=== PATIENT | female | born 1960 | race Caucasian/White ===

== ENCOUNTER 2017-04-09 11:57 | Day surgery (SDC) | payer OTHER, SELFPAY ==
[2017-04-09 12:18] VITALS: BP 123/80; PULSE 80; RESP 20; TEMP 36.8; O2SAT 95; BMI 37.5
[2017-04-09] MEDS: Bupivacaine 0.25% 30 ML Vial (12:34)
[2017-04-09] MEDS: MethylPREDNISolone Acetate 80 MG/ML Vial (12:34)
--- NOTE | 2017-04-09 12:45 | RAD_ITS ---
STUDY: X-RAY - CERVICAL SPINE REASON FOR EXAM: Female, 57 years old. Chronic neck pain. TECHNIQUE: 9 coned-down view(s) of the cervical spine were obtained intraoperatively. COMPARISON: None FINDINGS: Fluoroscopic services was provided for right C4-C7 radiofrequency ablation. RAD/Cerv Spine 2 or 3 Views IMPRESSION: Imaging provided for intraoperative right-sided C4-C7 radiofrequency ablation. Electronically Signed: Beny Schwab MD at 9:30 EST Tel [phone], Service support ,
[2017-04-09 13:23] VITALS: BP 123/80; BP 124/99; PULSE 72; RESP 16; TEMP 36; O2SAT 97
[2017-04-09 13:30] VITALS: BP 112/84; BP 123/80; PULSE 75; RESP 16; O2SAT 97
[2017-04-09 13:35] VITALS: BP 115/72; BP 123/80; PULSE 78; RESP 16; O2SAT 93
[2017-04-09 13:40] VITALS: BP 123/80; BP 89/75; PULSE 72; RESP 16; TEMP 36.1; O2SAT 93
[2017-04-09 13:56] VITALS: BP 123/80
--- NOTE | 2017-04-09 16:14 | OP.PCM_ITS ---
Problem List (1) Degeneration of cervical disc without myelopathy Status: Chronic (2) Cervical spondylosis Status: Chronic Report of Operation Date of Procedure: 04/09/17 Pre-Operative Diagnosis: Cervical spondylosis, cervical degenerative disc disease, cervical facet arthropathy Post-Operative Diagnosis: Cervical spondylosis, cervical degenerative disc disease, cervical facet arthropathy Surgery/Procedure Performed:: Right sided cervical radiofrequency ablation of the medial branch at C4, C5, C6, C7. Description of Surgical Findings:: PROCEDURE: Right-sided cervical radiofrequency ablation of the medial branch at C4, C5, C6 , C7 PREOPERATIVE DIAGNOSES: Cervical spondylosis, cervical degenerative disc disease, and cervical facet arthropathy POSTOPERATIVE DIAGNOSES: Cervical spondylosis, cervical degenerative disc disease, and cervical facet arthropathy ANESTHESIA: MAC COMPLICATIONS: None BLOOD LOSS: Minimal PROCEDURE IN DETAIL: History and physical today was reviewed. Risks and benefits of the procedure were explained. The patient understood, agreed to our procedure, and informed consent was obtained. IV inserted per routine protocol. The patient was taken to the operating room, placed in a prone position with a pillow positioned underneath the chest. The neck area was prepped and draped in a sterile fashion using iodine x3. Under fluoroscopy guidance, on AP view, C4 through C7 vertebral bodies were visualized. Skin and subcutaneous tissues were anesthetized with approximately 10 mL of 1% lidocaine using a 25- gauge regular needle. Under direct visualization with fluoroscopy at approximately 15-degree angle, starting on the right C4, ending on the right C7, passing through the C5-C6 using a 20-gauge 10 cm with a 10 mm curved active tip radiofrequency ablation needle, the needle was passed through the skin. The tip of the needle was maneuvered and directed towards the apophyseal junction of each corresponding vertebra. Once the tip of the needle was at the vicinity of the medial branch and in contact with the bone, the needle was redirected more lateral towards the medial branch. Once in contact with the medial branch, the stylet of each needle was then removed. After negative aspiration of blood with CSF and confirmation of AP as well as oblique view, the radiofrequency ablation probe was then inserted at each level. Impedance was then recorded at C4 to be 316, at C5 241, at C6 287, at C7 329 ohms. Motor-evoked potential was then initiated to 1.5 volt without any motor response at each corresponding level. The radiofrequency ablation probe was then removed intact and a total of 4 mL preservative-free 1% lidocaine was injected in divided doses between those 4 levels after negative aspiration of blood with CSF. The radiofrequency ablation probe was then reinserted after confirmation of AP, oblique as well as lateral view. Radiofrequency ablation was then initiated to 80 degrees Celsius for 60 seconds at each level. Once concluded, the probe was then removed intact and a total of 3 mL of preservative-free 0.25% Marcaine with 40 mg Depo-Medrol was injected in divided doses between those 4 levels. The needles were then removed intact. The patient experienced no signs or symptoms of intrathecal, intravascular injection. The patient experienced no paraesthesia. The procedure was completed without any apparent difficulty, any complication. The patient appeared to tolerate well. Sensory as well as motor exam was unchanged from prior to procedure. ASSESSMENT AND PLAN: This is a 57-year-old female with cervical spondylosis, cervical degenerative disc disease, and cervical facet arthropathy, status post right-sided radiofrequency ablation of the medial branch C4 through C7. The patient will continue her current medications. The patient will follow up in approximately 2 weeks fo reevaluation.
== END 2017-04-09 14:10 | disposition home or self-care (01) ==
LOC: SDC 11:58 → AC 11:59
PROVIDERS: Family Provider Family Medicine Geriatric Medicine; PCP Family Medicine Geriatric Medicine; Visit Provider Anesthesiology Pain Medicine
PROC: (CPT 64633; principal; 2017-04-09 13:10)
DX: M47.812 Spondylosis without myelopathy or radiculopathy, cervical region (principal); M50.30 Other cervical disc degeneration, unspecified cervical region; F32.9 Major depressive disorder, single episode, unspecified; E78.00 Pure hypercholesterolemia, unspecified; K21.9 Gastro-esophageal reflux disease without esophagitis; Z79.899 Other long term (current) drug therapy; J44.9 Chronic obstructive pulmonary disease, unspecified; F17.200 Nicotine dependence, unspecified, uncomplicated; G25.81 Restless legs syndrome
CPT/HCPCS: 64633; 64634 ×3; 72040; 76000; J7120

== ENCOUNTER → 2017-04-12 07:12 | Outpatient (CLI) | payer OTHER, SELFPAY ==
[2017-04-12 10:01] LABS: Absolute Lymphocyte Count 2.31 X10^3/ul (0.83-4.51); Absolute Neutrophil Count 6.1 X10^3/uL (2.0-7.7); Basophil# 0.02 X10^3/uL; Basophil% 0.2 % (0-1); Eosinophil# 0.04 X10^3/uL; Eosinophils% 0.4 % (0-5); Hematocrit 44.4 % (37-47); Lymphocyte # 2.31 X10^3/ul (4.0); Lymphocyte % 25.1 % (19-41); Mean Corp Hgb Conc 33.8 g/gl (32-36); Mean Corpuscular Hgb 30.4 pg (27.0-32.0); Mean Corpuscular Volume 90.1 fL (81-99); Mean Platelet Vol. 8.8 fl (6.2-12.0); Monocyte# 0.71 X10^3/uL; Monocyte% 7.7 % (0-10); Neutrophil # 6.08 X10^3/uL (2.7-7.7); Neutrophil % 66.1 % (47-70); Platelet Count 351 K/mm3 (150-450); RBC Distribution Width CV 13.5 % (11.6-14.6); RBC Distribution Width SD 43.9 fl (35.1-43.9); Red Blood Count 4.93 M/mm3 (4.2-5.4); White Blood Count 9.2 K/mm3 (4.4-11.0)
[2017-04-12 10:09] LABS: ALB/GLOB Ratio 1.1 RATIO (0.9-2.4); AST(SGOT) 19 U/L (15-37); Alanine Aminotransfer ALT/SGPT 31 U/L (13-56); Albumin, Serum 3.9 g/dL (3.2-5.0); Alkaline Phosphatase 77 U/L (45-117); Anion Gap 8 (5-15); BUN 17 mg/dL (7-18); BUN/Creat Ratio 19.9 RATIO (10-20); CRP < 2.90 mg/L (0.0-3.0); Calcium,Total 9.3 mg/dL (8.5-10.1); Chloride 101 mmol/L (98-107); Creatinine, Serum 0.85 mg/dL (0.55-1.02); EST Glomerular Filtration Rate 73 mL/min (>60); Est Glom Filt Rate - Afr Amer 88 mL/min (>60); Globulin 3.6 g/dL (2.2-4.2); Glucose 84 mg/dL (74-106); Potassium 3.8 mmol/L (3.5-5.1); Protein, Total 7.5 g/dL (6.4-8.2); Sodium Level 138 mmol/L (136-145)
[2017-04-12 10:21] LABS: Erythrocyte Sedimentation Rate 15 mm/hr (0-30)
== END ==
PROVIDERS: Family Provider Family Medicine Geriatric Medicine; PCP Family Medicine Geriatric Medicine
DX: M05.79 Rheumatoid arthritis with rheumatoid factor of multiple sites without organ or systems involvement (principal)
CPT/HCPCS: 36415; 80053; 85025; 85652; 86140

== ENCOUNTER 2017-06-06 09:41 | Day surgery (SDC) | payer OTHER, SELFPAY ==
[2017-06-06] VITALS (9 sets, daily range): BP systolic 112–138; BP diastolic 73–90; PULSE 68–80; RESP 14–16; TEMP 36.6–36.8; O2SAT 95–98; BMI 38.5
[2017-06-06] MEDS: Clindamycin 900 MG/50 ML BAG 75 MG IV (11:07)
--- NOTE | 2017-06-06 11:16 | PCM.DC.ORTHO ---
Discharge Diet: No Restrictions - keep dressing clean and dry, if get incision wet- change dressing, follow up in 2 wks, call with concerns Discharge Activity: May Not Drive May shower in (days): 1 Ice area for (Minutes): 20 - Every hour while awake. Weight Bearing Status: Weight bearing as tolerated Keep extremity elevated above heart level: Operative Extremity Call your doctor if your incision/area has: Continuous Slow Oozing, Sudden Increased Bleeding, Increased Pain/ Swelling, Increased Redness, Foul Smelling Discharge Call your doctor if you observe: Fever of 101 or Higher, Coldness, Increased Pain, Numbness or Tingling, Change in Color, Calf discomfort Allergies/Adverse Reactions: Allergies adalimumab [From Humira] Allergy (Verified 02/21/17 08:52) Rash Penicillins Allergy (Verified 02/21/17 08:52) Rash tramadol Adverse Reaction (Verified 02/21/17 08:52) FEELING OF CONFUSION Medications to take at Discharge Albuterol Inhaler [Ventolin Hfa (SP)] 1 - 2 puff INHALATION Q6H PRN PRN 05/18/16 Hydroxychloroquine [Plaquenil] 200 mg PO BIDCM 05/18/16 Omeprazole [Prilosec] 40 mg PO DAILY 05/18/16 Potassium Citrate [Potassium Citrate ER] 20 meq PO BID 05/18/16 Sertraline HCl [Zoloft] 50 mg PO DAILY 05/18/16 albuterol sulfate 2.5 mg/3 mL (0.083 %) solution for nebulization 2.5 mg INHALATION Q6H PRN ml 02/13/17 pravastatin 20 mg tablet 20 mg PO QHS 02/13/17 tiotropium bromide 2.5 mcg/actuation mist for inhalation 2 puff INHALATION QDAY #1 ea 03/12/17 Folic Acid 1 mg PO DAILY@0800 04/09/17 Methotrexate 25 mg PO QWEEK 04/09/17 Primary Care Physician: Leon Pinto Chi, MD [Primary Care Provider] - Please Follow Up With: Jojo Santana, - [phone]
--- NOTE | 2017-06-06 11:18 | OP.PCM_ITS ---
Report of Operation Date of Procedure: 06/06/17 Pre-Operative Diagnosis: right middle finger trigger finger Post-Operative Diagnosis: same Surgery/Procedure Performed:: right middle finger A1 hiram release Type of Anesthesia:: Justen Mane Anesthesiologist: Luis Enrique Ramirez Drains: tt-8 mins Estimated Blood Loss (mL): none Fluids Replaced: 200cc lr Description of Procedure: Preoperative note Patient is a 57-year-old female with locking of her right long finger. Patient' s failed conservative treatment elected proceed with right A1 hiram release as affecting her activities of daily living. Risks benefits and alternatives surgery discussed with patient. Risks including but not limited to blood loss, blood clot, infection, neurovascular injury, failure procedure, loss of life and loss of limb. Patient is aware like proceed with right long finger A1 hiram release. Operative note Patient seen and examined preoperative holding area. Right middle finger was marked. Patient is brought to the operating room placed supine on the operating table. Signing, anesthesia, antibiotics were administered. Right arm was prepped in usual sterile fashion after Justen block was initiated. We then marked out our incision for our A1 hiram release. We tested the skin to ensure that her Equality block was working which it was. Timeout was performed. We then made our incision over the A1 hiram with a 15 blade. We dissected down tenotomy syllable of the A1 hiram. We then carefully dissected the central portion of the A1 hiram and completed it both proximally and distally with tenotomies ensuring to protect the flexor tendon underneath. We then brought the flexor tendon out of the incision and flex and extend the finger to ensure no further triggering which there was not. We then irrigated the incision closed with copious amounts sterile saline. The incision was closed with interrupted 4-0 nylon stitch and sterile dressings were applied. The tourniquet was deflated for total working time of 8 minutes. Patient tolerated procedure well there are no complication patient was transferred to recovery room in stable condition. Postoperative note Use hand as tolerated Keep incision clean and dry if gets wet may change dressing Follow-up in 2 weeks for stitch removal next Call with increased pain numbness feeling further issues arise This note was generated with [employer] software. It may contain incorrect words, spelling, and punctuation that were not noted in checking the note before signing.
[2017-06-06] MEDS: Mupirocin Ointment 22gm Tube 1 APPLIC (11:25)
== END 2017-06-06 12:35 | disposition home or self-care (01) ==
LOC: SDC 09:42 → AC 09:43
PROVIDERS: Family Provider Family Medicine Geriatric Medicine; PCP Family Medicine Geriatric Medicine; Visit Provider Orthopaedic Surgery
PROC: (CPT 26055; principal; 2017-06-06 11:15)
DX: M65.331 Trigger finger, right middle finger (principal); F32.9 Major depressive disorder, single episode, unspecified; Z79.899 Other long term (current) drug therapy; E78.5 Hyperlipidemia, unspecified; K21.9 Gastro-esophageal reflux disease without esophagitis; J44.9 Chronic obstructive pulmonary disease, unspecified; G47.33 Obstructive sleep apnea (adult) (pediatric); M06.9 Rheumatoid arthritis, unspecified; R06.02 Shortness of breath; M54.12 Radiculopathy, cervical region; F17.200 Nicotine dependence, unspecified, uncomplicated
CPT/HCPCS: 26055; J7120

== ENCOUNTER → 2017-09-13 12:44 | Outpatient (CLI) | payer OTHER, SELFPAY ==
[2017-09-13 14:43] LABS: Erythrocyte Sedimentation Rate 17 mm/hr (0-30)
[2017-09-13 14:44] LABS: Hematocrit 40.6 % (37-47); Hemoglobin 13.5 g/dl (12.0-15.0); Mean Corp Hgb Conc 33.3 g/gl (32-36); Mean Corpuscular Hgb 31.8 pg (27.0-32.0); Mean Corpuscular Volume 95.5 fL (81-99); Mean Platelet Vol. 8.8 fl (6.2-12.0); Platelet Count 307 K/mm3 (150-450); RBC Distribution Width CV 13.9 % (11.6-14.6); RBC Distribution Width SD 47.6 fl (35.1-43.9); Red Blood Count 4.25 M/mm3 (4.2-5.4); White Blood Count 8.6 K/mm3 (4.4-11.0)
[2017-09-13 14:47] LABS: Scan Indicated on CBC? Y/N NO
[2017-09-13 14:48] LABS: ALB/GLOB Ratio 1.1 RATIO (0.9-2.4); AST(SGOT) 17 U/L (15-37); Alanine Aminotransfer ALT/SGPT 32 U/L (13-56); Albumin, Serum 3.8 g/dL (3.2-5.0); Alkaline Phosphatase 80 U/L (45-117); Anion Gap 5 (5-15); BUN 15 mg/dL (7-18); BUN/Creat Ratio 16.7 RATIO (10-20); CRP 8.02 mg/L (0.0-3.0); Calcium,Total 9.1 mg/dL (8.5-10.1); Chloride 105 mmol/L (98-107); EST Glomerular Filtration Rate 69 mL/min (>60); Est Glom Filt Rate - Afr Amer 83 mL/min (>60); Globulin 3.4 g/dL (2.2-4.2); Glucose 82 mg/dL (74-106); Protein, Total 7.2 g/dL (6.4-8.2); Sodium Level 141 mmol/L (136-145)
== END ==
PROVIDERS: Family Provider Family Medicine Geriatric Medicine; PCP Family Medicine Geriatric Medicine
DX: M05.79 Rheumatoid arthritis with rheumatoid factor of multiple sites without organ or systems involvement (principal)
CPT/HCPCS: 36415; 80053; 85027; 85652; 86140

== ENCOUNTER → 2017-10-30 10:00 | Outpatient (CLI) | payer OTHER, SELFPAY ==
--- NOTE | 2017-10-30 10:04 | RAD_ITS ---
STUDY: X-RAY - RIGHT FOOT CLINICAL: Female, 57 years old. Pain top and medial foot for years with worsening TECHNIQUE: 3 view(s) of the foot. COMPARISON: The right foot x-ray dated December 12, 2010 was not provided for interpretation. FINDINGS: There is a plantar and Achilles spur. Normal visualized subtalar, talonavicular, calcaneocuboid, tarsal and tarsometatarsal articulations. There is a mildly curved appearance of the fifth metatarsal which may represent old injury. There is no visualized evidence of an acute fracture. Normal metatarsophalangeal joint of the great toe. Normal tibial and fibular sesamoid bones. Normal interphalangeal joint of the great toe. Normal phalanges of the great toe. Normal second through fifth metatarsophalangeal joints. Normal interphalangeal joints and phalanges of the lesser toes. The soft tissue structures are unremarkable. RAD/Foot min 3 Views IMPRESSION: Possible old injury of the fifth metatarsal. No visualized acute fracture. Plantar and Achilles spur. Electronically Signed: Shelly Dumont MD at 18:22 EDT Tel , Service support ,
== END ==
PROVIDERS: Family Provider Family Medicine Geriatric Medicine; PCP Family Medicine Geriatric Medicine; Visit Provider Podiatrist
DX: M79.671 Pain in right foot (principal); S93.621A Sprain of tarsometatarsal ligament of right foot, initial encounter; M19.90 Unspecified osteoarthritis, unspecified site
CPT/HCPCS: 73630

== ENCOUNTER → 2017-11-13 16:38 | Outpatient (CLI) | payer OTHER, SELFPAY ==
[2017-11-18 03:06] LABS: HEPATITIS B SURFACE AG Negative (Negative); QNTFERON TB Ag Minus Nil Value < 0 IU/mL (.); QNTFERON TB Ag Value 0.13 IU/mL (.); QNTFERON TB Mitogen Value > 10.00 IU/mL (.); QNTFERON TB Nil Value 0.24 IU/mL (.)
[2017-11-18 08:05] LABS: Hepatitis B Core AB IgM Negative (Negative); QNTIFERON TB Gold Negative (Negative)
== END ==
PROVIDERS: Family Provider Family Medicine Geriatric Medicine; PCP Family Medicine Geriatric Medicine
DX: M05.79 Rheumatoid arthritis with rheumatoid factor of multiple sites without organ or systems involvement (principal)
CPT/HCPCS: 36415; 86480; 86705; 87340

== ENCOUNTER → 2018-01-30 07:53 | Outpatient (CLI) | payer OTHER, SELFPAY ==
[2018-01-30 07:27] VITALS: BMI 38.2
--- NOTE | 2018-01-30 08:00 | RAD_ITS ---
STUDY: X-RAY CHEST REASON FOR EXAM: Female, 57 years old. Cough. TECHNIQUE: PA and lateral views of the chest. COMPARISON: Comparison is made with prior study dated December 27, 2015. FINDINGS: Hyperinflation. There is no demonstrated pleural abnormality. Normal size heart. Calcified bilateral hilar lymph nodes. No acute infiltrate is seen. Normal visualized pulmonary arteries. There is atherosclerotic tortuosity of the aortic arch and descending thoracic aorta. There are diffuse degenerative changes of the visualized thoracic spine. Normal visualized ribs, clavicles, and shoulders. There is no demonstrated abnormality of the visualized soft tissue structures of the upper abdomen. RAD/Chest PA and Lateral IMPRESSION: Hyperinflation. No acute abnormality is seen. Electronically Signed: Beny Schwab MD at 8:47 EST Tel [phone], Service support ,
[2018-01-30 09:42] LABS: Erythrocyte Sedimentation Rate 12 mm/hr (0-30)
[2018-01-30 09:44] LABS: Absolute Lymphocyte Count 1.69 X10^3/ul (0.83-4.51); Absolute Neutrophil Count 4.4 X10^3/uL (2.0-7.7); Basophil# 0.02 X10^3/uL; Basophil% 0.3 % (0-1); Eosinophil# 0.02 X10^3/uL; Eosinophils% 0.3 % (0-5); Hematocrit 42.7 % (37-47); Hemoglobin 14.5 g/dl (12.0-15.0); Lymphocyte # 1.69 X10^3/ul (4.0); Lymphocyte % 24.9 % (19-41); Mean Corpuscular Volume 94.3 fL (81-99); Mean Platelet Vol. 8.9 fl (6.2-12.0); Monocyte% 8.8 % (0-10); Neutrophil # 4.42 X10^3/uL (2.7-7.7); Platelet Count 336 K/mm3 (150-450); RBC Distribution Width CV 13.6 % (11.6-14.6); RBC Distribution Width SD 44.9 fl (35.1-43.9); Red Blood Count 4.53 M/mm3 (4.2-5.4); White Blood Count 6.8 K/mm3 (4.4-11.0)
[2018-01-30 09:46] LABS: POSITIVE COUNT NO; POSITIVE DIFFERENTIAL NO; POSITIVE MORPHOLOGY NO
[2018-01-30 10:09] LABS: AST(SGOT) 18 U/L (15-37); Alanine Aminotransfer ALT/SGPT 24 U/L (13-56); Albumin, Serum 3.8 g/dL (3.2-5.0); Alkaline Phosphatase 81 U/L (45-117); Anion Gap 9 (5-15); BUN 11 mg/dL (7-18); Calcium,Total 9.4 mg/dL (8.5-10.1); Chloride 106 mmol/L (98-107); Creatinine, Serum 0.92 mg/dL (0.55-1.02); EST Glomerular Filtration Rate 67 mL/min (>60); Est Glom Filt Rate - Afr Amer 81 mL/min (>60); Globulin 3.7 g/dL (2.2-4.2); Glucose 98 mg/dL (74-106); Potassium 4.2 mmol/L (3.5-5.1); Protein, Total 7.5 g/dL (6.4-8.2); Sodium Level 142 mmol/L (136-145)
--- OUTSIDE RECORDS SUMMARY | 2018-03-18 02:56 | XMS RPT_ITS ---
:1960 Author Organization OHIP Support Name Relationship Address Phone YEHUDA MALDONADO Unavailable Unavailable + WC Unavailable [address] + [place] [address] YEHUDA MALDONADO Unavailable Unavailable + WC Unavailable [address] + [place] [address] JOELYEHUDA Unavailable Unavailable + [facility] Unavailable [address] + [place] [address] JOELALEJANDRAIE Unavailable . + [place] [address] WC Unavailable [address] + [place] [address] JOELYEHUDA Unavailable Unavailable + WC Unavailable [address] + [place] [address] + [place] [address] WC Unavailable [address] + [place] [address] + [place] [address] WC Unavailable [address] + [place] [address] [address] + [place] [address] WC Unavailable [address] + [place] [address] + [place] [address] [facility] Unavailable [address] + [place] [address] + [place] [address] [facility] Unavailable [address] + [place] [address] + [place] [address] [facility] Unavailable [address] + [place] [address] [address] + [place] [address] [facility] Unavailable [address] + [place] [address] [address] + [place] [address] [facility] Unavailable [address] + [place] [address] [address] + [place] [address] [facility] Unavailable [address] + [place] [address] [address] + [place] [address] [facility] Unavailable [address] + [place] [address] + [place] [address] [facility] Unavailable [address] + [place] [address] [address] + [place] [address] [facility] Unavailable [address] + [place] [address] + [place] [address] [facility] Unavailable [address] + [place] [address] [address] + [place] [address] [facility] Unavailable [address] + [place] [address] Care Team Providers Name Role Phone Juan Jose Lagunas Attending Unavailable Blair, Leon Chi Referring Unavailable Juan Jose Lagunas Attending Unavailable Juan Jose Lagunas Referring Unavailable Blair, Leon Chi Primary Care Unavailable STARLA SHARMA Consulting Unavailable Foster, Delisa Consulting Unavailable Foster, Delisa Attending Unavailable Blair, Leon Chi Referring Unavailable Foster, Delisa Attending Unavailable Foster, Delisa Referring Unavailable Blair, Leon Chi Primary Care Unavailable Foster, Delisa Attending Unavailable Foster, Delisa Referring Unavailable Blair, Leon Chi Primary Care Unavailable Blair, Leon Chi Attending Unavailable Blair, Leon Chi Referring Unavailable Blair, Leon Chi Primary Care Unavailable Rj Bravo Attending Unavailable Lawrence Rj Referring Unavailable Blair, Leon Chi Primary Care Unavailable STARLA SHARMA Attending Unavailable Blair, Leon Chi Primary Care Unavailable ChicorelliJojo Attending Unavailable Blair, Leon Chi Referring Unavailable Blair, Leon Chi Primary Care Unavailable Chicorelli, Jojo Attending Unavailable Chicorelli, Jojo Referring Unavailable Blair, Leon Chi Primary Care Unavailable Chicorelli, Jojo Attending Unavailable Chicorelli, Jojo Referring Unavailable Blair, Leon Chi Primary Care Unavailable Chicorelli Jojo Consulting Unavailable ChicorelliRenitae Attending Unavailable Blair, Leon Chi Referring Unavailable Blair, Leon Chi Primary Care Unavailable Chicorelli, Jojo Attending Unavailable Foster, Delisa Attending Unavailable Blair, Leon Chi Referring Unavailable STARLA SHARMA Referring Unavailable Blair, Leon Chi Primary Care Unavailable STARLA HSARMA Attending Unavailable Fascione, Mary Attending Unavailable Fascione, Mary Referring Unavailable Blair, Leon Chi Primary Care Unavailable ASSESSMENT, HEALTH RISK Attending Unavailable ASSESSMENT, HEALTH RISK Referring Unavailable Blair, Leon Chi Primary Care Unavailable TSARLA SHARMA Attending Unavailable STARLA SHARMA Referring Unavailable Blair, Leon Chi Primary Care Unavailable Juan Jose Lagunas Attending Unavailable Blair, Leon Chi Referring Unavailable PROBLEMS PROBLEMS DATE TYPE CONDITION / CODE ATTENDING STATUS SOURCE 03/11/2018 Unknown J44.9 - Chronic Foster, Active [place] obstructive [facility] pulmonary Hospital disease, Repository unspecified / J44.9(ICD-10) 01/30/2018 Unknown J40 - Bronchitis, Foster, Active [place] not specified as [facility] acute or chronic Hospital / J40(ICD-10) Repository 02/28/2018 Unknown R05 - Cough / Juan Jose Lagunas Active [place] R05(ICD-10) [facility] Hospital Repository 11/13/2017 Unknown M05.79 - STARLA SHARMA Active [place] Rheumatoid [facility] arthritis with Hospital rheumatoid factor Repository of multiple sites without organ or systems involvement / M05.79(ICD-10) 06/29/2017 Unknown M65.331 - Trigger Max, Active [place] finger, right [facility] middle finger / Hospital M65.331(ICD-10) Repository PROCEDURES PROCEDURES No Procedure Records FoundRESULTS RESULTS 6 MINUTE WALK TEST Observed: 03/12/2018 Status: F Source: [place] 5:[address] [facility] REPOSITORY [facility] Pulmonary Services/Neurology [address] [place] [address] MR#: [id number] Acct: [id number] Name: LAUREN MALDONADO Rep #: [id number] : 1960 58 From: Semaj Joseph MD Referring Dr: Delisa Foster ACCOUNTANT SYSTEMS Date: Ordering Dr: Sex: F C Location: PSN PSN 6 Minute Walk Test - 6 Minute Walk Test 6 Minute Walk Test: 6 Minute Walk Test PSN:6-Minute Walk Test Start: 03/11/18 09:18 Freq: Status: Active Protocol: RESP.6MINW Document 03/11/18 09:18 [facility] (Rec: 03/11/18 09:30 [facility] [id number]) 6 Minute Walk Test Date Performed 03/11/18 Time Performed 09:00 Height 5 ft 5 in Weight: 107.501 kg Weight in Pounds 237.[address]: Delisa Foster Assistive device used: None Pre-test Oxygen Delivery Method Room Air Pulse Ox (%) 98 Pulse Rate (60-100 beats/min) 86 Dyspnea Andreea Scale (0-10) 0 1st minute Oxygen Delivery Method Room Air Pulse Ox (%) 96 Pulse Rate (60-100 beats/min) 90 Dyspnea Andreea Scale (0-10) 0 2nd minute Oxygen Delivery Method Room Air Pulse Ox (%) 95 Pulse Rate (60-100 beats/min) 101 H Dyspnea Andreea Scale (0-10) 1 3rd minute Oxygen Delivery Method Room Air Pulse Ox (%) 96 Pulse Rate (60-100 beats/min) 102 H Dyspnea Andreea Scale (0-10) 1 4th minute Oxygen Delivery Method Room Air Pulse Ox (%) 94 Pulse Rate (60-100 beats/min) 104 H Dyspnea Andreea Scale (0-10) 2 5th minute Oxygen Delivery Method Room Air Pulse Ox (%) 93 Pulse Rate (60-100 beats/min) 106 H Dyspnea Andreea Scale (0-10) 2 6th minute Oxygen Delivery Method Room Air Pulse Ox (%) 92 Pulse Rate (60-100 beats/min) 113 H Dyspnea Andreea Scale (0-10) 2 Post-test Oxygen Delivery Method Room Air Pulse Ox (%) 97 Pulse Rate (60-100 beats/min) 85 Dyspnea Andreea Scale (0-10) 0 Full Laps Walked 22 Partial Lap, Number of Tiles Walked 17 Total Distance Walked (ft) 1315 - Interpretation Interpretation: The patient was able to ambulate 1315 feet over the course of 6 minutes on room air. The patient did have significant desaturation from a baseline of 98%, to as low as 92%. Peak heart rate noted at 113 bpm. These findings are consistent with a respiratory limitation exercise tolerance. - Recommendations Recommendations: No supplemental oxygen is indicated at this time. However, patient will need to be followed closely given significant level of desaturation. 03/12/18 0557 <Electronically signed by Semaj Joseph MD> Date Semaj Joseph MD CC: Date Dictated: 03/11/18 1126 Date Transcribed: 03/11/18 1126 Epitaxial Reactor Operator: Semaj Joseph MD Signed Observed: 03/08/2018 Status: F Source: [place] RESPIRATORY PANEL 12:[address] [facility] MOLECULAR REPOSITORY RP PANEL ADENOVIRUS Not Detected HUMAN METAPHNEUMO Not Detected INFLUENZA A Not Detected INFLUENZA A (SUBTYPE H1) Not Detected INFLUENZA A (SUBTYPE H3) Not Detected INFLUENZA B Not Detected PARAINFLUENZA 1 Not Detected PARAINFLUENZA 2 Not Detected PARAINFLUENZA 3 Not Detected PARAINFLUENZA 4 Not Detected RHINOVIRUS Not Detected RSV A Not Detected RSV B Not Detected NAAT METHOD Testing was performed using nucleic acid amplification Performed By: #### M100.638 #### [facility] [address] [place], [address] PULMONARY FUNCTION Observed: 03/05/2018 Status: F Source: [place] TEST [facility]27 [facility] Pulmonary Services/Neurology [address] [place] [address] MR#: [id number] Acct: [id number] Name: LAUREN MALDONADO Rep #: [id number] : 1960 58 From: Isaias Leon DO Referring Dr: Delisa Foster NP Status: REG CLI Ordering Dr: Date: Location: [facility] Sex: F C INTRODUCTION: The patient is a 58-year-old female that presents for pulmonary function studies secondary to a diagnosis of COPD. Respiratory therapy reports good patient effort. Bronchodilators were used during testing. INTERPRETATION: Forced expiration spirometry demonstrates the presence of a moderately severe large airways obstructive ventilatory defect. There was a significant response to aerosolized bronchodilators noted. Spirograms are of good quality and do not plateau indicating slow emptying of the lungs. Body plethysmography was performed and revealed an elevated TLC and RV, indicative of underlying hyperinflation and air-trapping. Diffusing capacity by single breath CO is relatively preserved at 82% of predicted. When compared to previous pulmonary function studies dated November 2016 there has been an 11% reduction in FEV1 along with increased TLC and RV. IMPRESSION: These pulmonary function studies demonstrate the presence of a partially reversible moderately severe large airways obstructive ventilatory defect with associated hyperinflation and air-trapping. There has been worsening in the patient's pulmonary function study since they were last completed in 2016, as noted above. 03/05/181426 <Electronically signed by Isaias Leon DO> Date Isaias Leon DO CC: Delisa Foster; Leon Pinto MD Date Dictated: 03/05/181421 Date Transcribed: 03/05/181421 Epitaxial Reactor Operator: CHRISTIANA Signed URGENT CARE VISIT Observed: 02/25/2018 Status: F Source: [place] REPORT 10:[address] [facility] REPOSITORY [facility] [address] [place] [address] OFFICE VISIT Date of Service: 01/28/18 MR#: [id number] Acct: [id number] Name: LAUREN MALDONADO Rep #: [id number] : 1960 Provider: Juan Jose CARABALLO Age/Sex: 57/F Location: [facility] Status: Signed with Addenda ADDENDUM by Juan Jose CARABALLO on 02/25/18 at 1007 Addendum entered and electronically signed by ILYA Pedro 02/25/18 10:07: DXs: Bronchitis, Sinusitis HPI Details: LAUREN MALDONADO, is a 58 F who presents to the office today for Assessment AND Plan Plan - ILYA Pedro After reviewing the examination findings with patient in office today, patient offered radiographs which she refused. Levaquin as prescribed today. Though patient also requested a corticosteroid, recommended patient not be prescribed a corticosteroid at this point but should she still be symptomatic in 3-5 days she may call us to reconsider this option. Benzonatate as needed as prescribed today. Stop smoking! Follow-up with PCP in 3-5 days should symptoms not improve, sooner should symptoms worsen or any other concerns develop. Patient states acknowledging understanding all the above. This note was generated with Tappx dictation software. It may contain incorrect words, spelling, and punctuation that were not noted in checking the note before signing. Medications New: 02/25/18 1007 <Electronically signed by Juan Jose CARABALLO> Date Juan Jose Lagunas cc: * Signed Intake Vital Signs01/28/18 Height 5 ft 6 in Intake Visit Reasons: UPPER RESP INFECTION Chief Complaint: Cough Safety Physician Required: No Accompanied by: Self Is patient in pain?: No Allergies adalimumab [From Humira] Allergy (Verified 01/28/18 09:17) Rash Penicillins Allergy (Verified 01/28/18 09:17) Rash tramadol Adverse Reaction (Verified 01/28/18 09:17) FEELING OF CONFUSION Medications Albuterol Inhaler [Ventolin Hfa (SP)] 1 - 2 puff INHALATION Q6H PRN PRN 05/18/16 [History Confirmed 01/28/18] Hydroxychloroquine [Plaquenil] 200 mg PO BIDCM 05/18/16 [History Confirmed 01/28/18] Omeprazole [Prilosec] 40 mg PO DAILY 05/18/16 [History Confirmed 01/28/18] Potassium Citrate [Potassium Citrate ER] 20 meq PO BID 05/18/16 [History Confirmed 01/28/18] Sertraline HCl [Zoloft] 50 mg PO DAILY 05/18/16 [History Confirmed 01/28/18] albuterol sulfate 2.5 mg/3 mL (0.083 %) solution for nebulization 2.5 mg INHALATION Q6H PRN ml 02/13/17 [History Confirmed 01/28/18] pravastatin 20 mg tablet 20 mg PO QHS 02/13/17 [History Confirmed 01/28/18] Folic Acid 1 mg PO DAILY@0800 04/09/17 [History Confirmed 01/28/18] Methotrexate 25 mg PO QWEEK 04/09/17 [History Confirmed 01/28/18] tiotropium bromide 2.5 mcg/actuation mist for inhalation 2 puff INHALATION QDAY #1 ea 06/29/17 [Rx Confirmed 01/28/18] benzonatate 200 mg capsule 200 mg PO TID PRN #20 cap 01/28/18 [Rx Confirmed 01/28/18] levofloxacin 500 mg tablet 500 mg PO DAILY #10 tab 01/28/18 [Rx Confirmed 01/28/18] Nurse's Note: Patient did not have medication list. Medications verbally confirmed by patient. [facility] Medical History Depression (Chronic) Limb weakness (Chronic) Tobacco abuse (Chronic) Hyperlipidemia (Chronic) GERD (gastroesophageal reflux disease) (Chronic) Allergic rhinitis (Chronic) COPD (chronic obstructive pulmonary disease) (Chronic) Cervicalgia (Chronic) Cervical radiculopathy (Chronic) Rotator cuff syndrome (Chronic) Segmental and somatic dysfunction of thoracic region (Chronic) Acute maxillary sinusitis (Chronic) Bursitis of right shoulder (Chronic) Bicipital tendinitis of right shoulder (Chronic) Family history of alcoholism (Chronic) Shortness of breath (Chronic) TAMRA (obstructive sleep apnea) (Chronic) Rheumatoid arthritis (Chronic) Spontaneous rupture of extensor tendons, right forearm (Resolved) Segmental and somatic dysfunction of lumbar region (Chronic) Incontinence (Acute) Surgical History History of surgery on arm (Resolved) History of laparoscopic cholecystectomy (Resolved) History of appendectomy (Resolved) h/o trigger finger release (Acute) Family History Mother COPD (chronic obstructive pulmonary disease) Heart disease Osteoarthritis TAMRA (obstructive sleep apnea) Father Cancer throat Social History Smoking Status: Current every day smoker second hand exposure: Yes alcohol intake: current substance use type: does not use caffeine: Yes what type of physical activity do you participate in: none HPI HPI Chief Complaint: Cough Details: LAUREN MALDONADO, is a 57 F who presents to the office today for initial evaluation approximately 2-1/2-week history of cough. Patient notes over the course of the last week in particular she has had thick exudative greenish yellow sputum which she is coughing up. She notes having a lot of facial pressure and for head congestion with postnasal drip along with chills though no complaints of fever, sweats, rash, chest pain/shortness of breath. Patient admits to being a tobacco smoker. No other members and also with similar complaints. No iult-wja-glwlobk products have been tried to assist with symptoms. No other associated symptoms and no other alleviating or aggravating factors. ROS Const Constitutional: No other (ROS negative x10 other than as noted above) Exam Const General: cooperative, healthy appearing, no acute distress Orientation: alert, awake, oriented x3 HENMT Head: normal to inspection Ears: hearing grossly normal bilaterally, external ears normal, TM's normal bilaterally, EAC's normal Nose: external nose normal, nares normal, septum normal, no nasal discharge Face and sinus: normal facial exam, face symmetric, sinus tenderness frontal Mouth: oral mucosae normal, lip normal, tongue normal Teeth and gingiva: gingiva normal, dentition normal Throat: uvula midline, tonsils normal, posterior oropharynx normal, postnasal drainage (purulent) Eyes General: appearance normal, both eyes and all related structures Neck Neck: normal visual inspection, full ROM, no lymphadenopathy, no meningeal signs, supple Neck mass: No Thyroid: thyroid normal Lymphatic: no lymphadenopathy noted Chest Chest palpation AND inspection: normal inspection of the chest Resp Effort AND Inspection: normal respiratory effort, able to speak in complete sentences, symmetric chest movement, cough Quality of cough: wet (nonproductive during today's exam) Auscultation: Bilateral: Clear to Auscultation Cardio Palpation: normal PMI Rate: regular rate Rhythm: regular rhythm Heart Sounds: S1 normal, S2 normal, no gallops, no murmurs, no rubs Pulses: radial pulses present GI Inspection: normal to inspection Palpation: soft, no hepatosplenomegaly Skin General: no rashes or lesions noted Neuro General: alert, awake, oriented x3, gait normal Cognition: normal cognition Speech: speech normal Gait: normal gait Motor: muscle tone normal throughout Sensory Exam: no sensory deficits noted Extrem General: normal to inspection Psych Appearance: grossly normal Mental Status: mental status grossly normal Mood: congruent mood Affect: normal affect Speech and Movement: speech and movement normal Attitude: cooperative Thought Process: normal Thought Content: normal Judgment: judgment good Assessment AND Plan Plan After reviewing the examination findings with patient in office today, patient offered radiographs which she refused. Levaquin as prescribed today. Though patient also requested a corticosteroid, recommended patient not be prescribed a corticosteroid at this point but should she still be symptomatic in 3-5 days she may call us to reconsider this option. Benzonatate as needed as prescribed today. Stop smoking! Follow-up with PCP in 3-5 days should symptoms not improve, sooner should symptoms worsen or any other concerns develop. Patient states acknowledging understanding all the above. This note was generated with Tappx dictation software. It may contain incorrect words, spelling, and punctuation that were not noted in checking the note before signing. Medications New: Coding Level of Care Code Off vis,est,level 3 01/28/18 0953 <Electronically signed by Juan Jose CARABALLO> Date Juan Jose CARABALLO Cosigner Signature: Date (if applicable) CC: PULMONARY VISIT REPORT Observed: 01/30/2018 Status: F Source: [place] 9:[address] [facility] REPOSITORY [facility] [place] [address] [place] [address] OFFICE VISIT Date of Service: 01/30/18 MR#: [id number] Acct: [id number] Name: LAUREN MALDONADO Rep #: [id number] : 1960 Provider: Delisa Foster Age/Sex: 57/F Location: [facility] Status: Signed Assessment AND Plan Problems 1. 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 classification J44.9 Plan Deteriorated, treating for exacerbation. Advised to complete Levaquin however I suspect that the cause of her exacerbation is likely viral. Respiratory viral panel, influenza a and B rapid swab is pending. Chest x-ray reviewed and shows no acute cardiopulmonary process. Kenalog injection provided in the office today followed by a prednisone taper. Continue current maintenance medications. Keep previously scheduled routine follow-up. Contact the office if symptoms are not improving after 3 days on medications. Orders Orders: Medications New: albuterol sulfate HFA 90 mcg/actuation 1 - 2 puffs Inhalation Q6H PRN PRN 18 grams 6RF So b AND /Or Wheezing Discontinued: Kenalog (triamcinolone acetonide) Discontinued 60 mg (1.5 mL) IM ONCE 1.5 mL 0RF NS J40 Reason: Office Medication has been Documented as given HPI SOB, Cough: Chief Complaint: Chest tightness HPI Comments Details: This should presents to the office today to be seen for an acute complaint of chest tightness. She reports a cough that is productive of green sputum. She reports increase in shortness of breath, fatigue, headache and body aches. She has been afebrile and noticed chilling. She reports an increase in wheezing. She was started on Levaquin a few days ago and Tessalon Perles. Tessalon Perles have not helped her cough frequency. She is using albuterol and a nebulizer a couple times daily with some temporary partial relief. She has not added any eirr-kwr-qpjrehk medications to treat her symptoms. Intake Vital Signs01/30/18 Body Mass Index (BMI) 38.2 01/30/18 Height 5 ft 5 in Intake Visit Reasons: SOB, Cough Chief Complaint: Cough Is patient in pain?: Yes Allergies adalimumab [From Humira] Allergy (Verified 01/30/18 08:28) Rash Penicillins Allergy (Verified 01/30/18 08:28) Rash tramadol Adverse Reaction (Verified 01/30/18 08:28) FEELING OF CONFUSION Medications Hydroxychloroquine [Plaquenil] 200 mg PO BIDCM 05/18/16 [History Confirmed 01/30/18] Omeprazole [Prilosec] 40 mg PO DAILY 05/18/16 [History Confirmed 01/30/18] Potassium Citrate [Potassium Citrate ER] 20 meq PO BID 05/18/16 [History Confirmed 01/30/18] Sertraline HCl [Zoloft] 50 mg PO DAILY 05/18/16 [History Confirmed 01/30/18] albuterol sulfate 2.5 mg/3 mL (0.083 %) solution for nebulization 2.5 mg INHALATION Q6H PRN ml 02/13/17 [History Confirmed 01/30/18] pravastatin 20 mg tablet 20 mg PO QHS 02/13/17 [History Confirmed 01/30/18] Folic Acid 1 mg PO DAILY@0800 04/09/17 [History Confirmed 01/30/18] Methotrexate 25 mg PO QWEEK 04/09/17 [History Confirmed 01/30/18] tiotropium bromide 2.5 mcg/actuation mist for inhalation 2 puff INHALATION QDAY #1 ea 06/29/17 [Rx Confirmed 01/30/18] benzonatate 200 mg capsule 200 mg PO TID PRN #20 cap 01/28/18 [Rx Confirmed 01/30/18] levofloxacin 500 mg tablet 500 mg PO DAILY #10 tab 01/28/18 [Rx Confirmed 01/30/18] albuterol sulfate HFA 90 mcg/actuation aerosol inhaler 1 - 2 puff INHALATION Q6H PRN PRN #18 g 01/30/18 [Rx Confirmed 01/30/18] prednisone 10 mg tablet 10 mg PO QDAY #30 tab 01/30/18 [Rx Confirmed 01/30/18] PFSH Medical History Depression (Chronic) Limb weakness (Chronic) Tobacco abuse (Chronic) Hyperlipidemia (Chronic) GERD (gastroesophageal reflux disease) (Chronic) Allergic rhinitis (Chronic) COPD (chronic obstructive pulmonary disease) (Chronic) Cervicalgia (Chronic) Cervical radiculopathy (Chronic) Rotator cuff syndrome (Chronic) Segmental and somatic dysfunction of thoracic region (Chronic) Acute maxillary sinusitis (Chronic) Bursitis of right shoulder (Chronic) Bicipital tendinitis of right shoulder (Chronic) Family history of alcoholism (Chronic) Shortness of breath (Chronic) TAMRA (obstructive sleep apnea) (Chronic) Rheumatoid arthritis (Chronic) Spontaneous rupture of extensor tendons, right forearm (Resolved) Segmental and somatic dysfunction of lumbar region (Chronic) Incontinence (Acute) Surgical History History of surgery on arm (Resolved) History of laparoscopic cholecystectomy (Resolved) History of appendectomy (Resolved) h/o trigger finger release (Acute) Family History Mother COPD (chronic obstructive pulmonary disease) Heart disease Osteoarthritis TAMRA (obstructive sleep apnea) Father Cancer throat Social History Smoking Status: Current every day smoker second hand exposure: Yes alcohol intake: current substance use type: does not use caffeine: Yes what type of physical activity do you participate in: none Review of Systems Const CONSTITUTIONAL: Positive body ache, chills, fever(s) (Low grade ), fatigue and headache(s); negative anorexia, daytime sleepiness, night sweats, oral thrush, stops breathing during sleep, weight loss, sleeping in chair, weight loss, weight gain, frequent colds, seasonal allergies, other or orthopnea EETM Ear Nose Throat Mouth: Positive headache(s), nasal congestion, post nasal drip, sinus pressure and sore throat; negative hard of hearing, hearing normal, hoarseness, dry mouth in morning, change in vision, itchy eyes, eye pain, swallowing Difficulty, ear pain, nose bleed, mouth pain, nasal discharge, sinus pain or other Cardio Cardiovascular: Negative chest pain, chest pain at rest, chest pain with activity, irregular heart rhythm, edema, shortness of breath when lying down, palpitations, other or murmur Resp Respiratory: Positive shortness of breath, pain with cough and cough cough: Positive productive color: Positive thick and green; negative as per HPI, wheezing, chest congestion, chest tightness, pain on inspiration, inhalers, increase use of rescue inhalers, snoring, apnea or other Gastro Gastrointestional: Negative bloody stools, change in appetite, difficulty swallowing, reflux, hematemesis, melena stool, loose stool, constipation or other Genitourinary: Negative blood in urine, nocturia, pain with urination or other Musc Musculoskeletal: Negative body pain, back pain, neck pain or other Skin/Breast Skin/Breast: Negative dry skin, itching, unusual bruising, breast lump, other or rash Neuro Neurological: Negative restless legs, confusion, weakness or other Psych Psychocological: Negative abnormal sleep pattern, anxiety, thoughts of hurting self/others, hopelessness or other Lymph Lymphatic: Negative easy bleeding, easy bruising, other or swollen lymph nodes Exam Const Constitutional: Positive cooperative, well developed, well nourished, good hygiene, ill appearing and conversant Head Head: Positive normocephalic and atraumatic; negative cyanosis of lips/distal nose Eyes Eye: Positive clear conjunctiva; negative nystagmus or scleral abnormality Ears Ear: Positive external ears normal; negative hard of hearing or hearing normal Nose Nose: Positive external nose normal and no nasal discharge; negative epistaxis Mouth Mouth: Positive oral mucosae normal, no lesions, posterior oropharynx is adequate, good dentition and post nasal drip; negative malodorous breath or oral thrush present Mallampati Score: II: Mallampati Score Neck Neck: Positive normal visual inspection, full ROM, trachea midline and thick neck; negative lymphadenopathy, JVD or tender Chest Wall Chest: Positive normal inspection of the chest and symmetric chest movement; negative increased A/P diameter Resp lung sounds: Positive diminished, wheezes, normal expiratory time and increased work of breathing; negative rhonchi, rales, dullness to percussion or use of accessory muscles Cardio Cardiac: Positive regular rate, regular rhythm, S1 normal and S2 normal; negative murmur GI GI: Positive normal to inspection; negative distended Genitourinary: Positive deferred Musc Musculoskeletal: Positive steady gait and ROM normal; negative kyphosis or scoliosis Skin Pulmonary Skin Exam: Positive intact; negative rash Pulses Pulse: Yes pulses normal x4 extremities Extremities Extremities: Yes capillary refill normal, No clubbing, No cyanosis, No edema Neuro Neurologic: Yes conversant, Yes no focal neuro deficits, Yes understands questions, Yes normal concentration, Yes cooperative, Yes normal cognition, Yes normal coordination, No tremor Lymph Lymphatic: No lymphadenopathy, No tenderness, No cervical adenopathy Psych Appearance: Positive grossly normal, eye contact and well kempt Mental Status: Positive mental status grossly normal Mood: Positive congruent mood Affect: Positive normal affect Office [facility] Performing Provider: VALERIE Garnica Administered by: Mehreen Juarez on 01/30/18 09:01 Dose Route Admin Location Lot Number Expiration Date NDC [employer] 60 mg IM Lt gluteal [id number] 04/20/19 4415-1423-20 [employer] Coding Level of Care Code Off vis,est,level 4 Diagnoses 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 classification J44.9 01/30/18 0949 <Electronically signed by Delisa PADILLA> Date Delisa PADILLA Cosigner Signature: Date (if applicable) CC: Leon Pinto MD Observed: 01/30/2018 Status: F Source: [place] INFLUENZA A+B (RAPID 9:[address] [facility]) REPOSITORY FLU A/B Rapid Negative test results should be confirmed by culture. Order Rapid Viral Culture for Influenzae A+B ([id number]) if clinically indicated. Influenza Ag, Direct Presumptive NEGATIVE for Influenza A/B Antigen (See Note) Performed By: #### M101.0101, M100.638 #### [facility] [address] [place], [address] Observed: 01/30/2018 Status: F Source: [place] RESPIRATORY PANEL 9:[address] [facility] MOLECULAR REPOSITORY RP PANEL Normal Reference Range = Not Detected ADENOVIRUS Not Detected HUMAN METAPHNEUMO Not Detected INFLUENZA A Not Detected INFLUENZA A (SUBTYPE H1) Not Detected INFLUENZA A (SUBTYPE H3) Not Detected INFLUENZA B Not Detected PARAINFLUENZA 1 Not Detected PARAINFLUENZA 2 Not Detected PARAINFLUENZA 3 Not Detected PARAINFLUENZA 4 Not Detected RHINOVIRUS Not Detected RSV A Not Detected RSV B Not Detected NAAT METHOD Testing was performed using nucleic acid amplification Performed By: #### M101.0101, M100.638 #### [facility] [address] [place], [address] ERYTHROCYTE SED RATE Collected: 01/30/2018 Status: F Source: [place] 9:[address] [facility] REPOSITORY TYPE CODE TESTS RESULT OUT OF RANGE REFERENCE UNITS LAB L102.0000 0-30 mm/hr Normal SED RATE 12 Performed By: #### L101.9900, L100.0100 #### [facility] [address] [place], [address] CBC W/DIFF, AUTOMATED Collected: 01/30/2018 Status: F Source: [place] 9:[address] [facility] REPOSITORY TYPE CODE TESTS RESULT OUT OF RANGE REFERENCE UNITS LAB L100.1000 4.4-11.0 K/mm3 Normal WBC 6.8 LAB L100.1200 4.2-5.4 M/mm3 Normal RBC 4.53 LAB L100.1300 12.0-15.0 g/dl Normal HGB 14.5 LAB L100.1400 37-47 % Normal HCT 42.7 LAB L100.1500 81-99 fL Normal MCV 94.3 LAB L100.1600 27.0-32.0 pg Normal MCH 32.0 LAB L100.1700 32-36 g/gl Normal MCHC 34.0 LAB L100.1810 11.6-14.6 % Normal RDW CV 13.6 LAB L100.1820 35.1-43.9 fl High RDW SD 44.9 LAB L100.1900 150-450 K/mm3 Normal PLT 336 LAB L100.2000 6.2-12.0 fl Normal MPV 8.9 LAB L100.2100 47-70 % Normal NEUT% 65.0 LAB L100.2200 19-41 % Normal LY% 24.9 LAB L100.2300 0-10 % Normal MONO% 8.8 LAB L100.2400 0-5 % Normal EO% 0.3 LAB L100.2500 0-1 % Normal BASO% 0.3 LAB L100.2550 0.0-0.9 % Normal IM GRAN % 0.700 Result Comment: IG% - Immature Granulocytes (promyelocytes, myelocytes and metamyelocytes) > 1% indicates that a LEFT SHIFT is Present. LAB L100.2620 2.0-7.7 X10 3/uL Normal Absolute Neut 4.4 LAB L100.2720 0.83-4.51 X10 3/ul Normal Absolute Lymph 1.69 Performed By: #### L101.9900, L100.0100 #### [facility] [address] [place], [address] COMPREHENSIVE METABOLIC Collected: 01/30/2018 Status: F Source: [place] [facility] 9:[address] [facility] REPOSITORY TYPE CODE TESTS RESULT OUT OF RANGE REFERENCE UNITS LAB L501.0100 74-106 mg/dL Normal GLU 98 Result Comment: Please note revised GLUCOSE reference range effective 2017. LAB L501.1000 7-18 mg/dL Normal BUN 11 LAB L501.1100 0.55-1.02 mg/dL Normal CREAT,SERUM 0.92 Result Comment: The validity of the calculated GFR AND GFRAA in patients over 70 years has not been determined. Clinical correlation is essential. LAB L501.1110 >60 mL/min Normal EST GFR 67 Result Comment: Non- GFR Calc LAB L501.1115 >60 mL/min Normal EST GFR - AA 81 Result Comment: GFR Calc LAB L501.1300 10-20 RATIO Normal BUN/CRE 12.0 LAB L501.1500 6.4-8.2 g/dL T Normal PROT 7.5 LAB L501.1800 3.2-5.0 g/dL Normal ALB 3.8 LAB L501.1950 2.2-4.2 g/dL Normal GLOB 3.7 LAB L501.2000 0.9-2.4 RATIO Normal A/G 1.0 LAB L501.2200 8.5-10.1 mg/dL CA Normal 9.4 LAB L501.4100 15-37 U/L Normal AST 18 LAB L501.4305 45-117 U/L Normal ALK P 81 LAB L501.4405 13-56 U/L Normal ALT 24 LAB L501.4600 0.20-1.00 mg/dL T Normal BILI 0.30 LAB L501.5300 136-145 mmol/L NA Normal 142 LAB L501.5600 3.5-5.1 mmol/L K Normal 4.2 LAB L501.5900 98-107 mmol/L CL Normal 106 LAB L501.6100 21.0-32.0 mmol/L Normal CO2 27.0 LAB L501.6200 5-15 Normal GAP 9 Performed By: #### L500.4050 #### [facility] [address] [place], [address] URGENT CARE VISIT Observed: 01/30/2018 Status: F Source: [place] REPORT 9:[address] [facility] REPOSITORY [facility] [address] [place] [address] OFFICE VISIT Date of Service: 01/30/18 MR#: [id number] Acct: [id number] Name: LAUREN MALDONADO Rep #: [id number] : 1960 Provider: Juan Jose CARABALLO Age/Sex: 57/F Location: [facility] Status: Signed Intake Vital Signs01/30/18 Body Mass Index (BMI) 38.2 01/30/18 Height 5 ft 6 in Intake Visit Reasons: CHEST CONGESTION Chief Complaint: Cough Safety Physician Required: No Accompanied by: self Is patient in pain?: No Allergies adalimumab [From Humira] Allergy (Verified 01/30/18 08:28) Rash Penicillins Allergy (Verified 01/30/18 08:28) Rash tramadol Adverse Reaction (Verified 01/30/18 08:28) FEELING OF CONFUSION Medications Hydroxychloroquine [Plaquenil] 200 mg PO BIDCM 05/18/16 [History Confirmed 01/30/18] Omeprazole [Prilosec] 40 mg PO DAILY 05/18/16 [History Confirmed 01/30/18] Potassium Citrate [Potassium Citrate ER] 20 meq PO BID 05/18/16 [History Confirmed 01/30/18] Sertraline HCl [Zoloft] 50 mg PO DAILY 05/18/16 [History Confirmed 01/30/18] albuterol sulfate 2.5 mg/3 mL (0.083 %) solution for nebulization 2.5 mg INHALATION Q6H PRN ml 02/13/17 [History Confirmed 01/30/18] pravastatin 20 mg tablet 20 mg PO QHS 02/13/17 [History Confirmed 01/30/18] Folic Acid 1 mg PO DAILY@0800 04/09/17 [History Confirmed 01/30/18] Methotrexate 25 mg PO QWEEK 04/09/17 [History Confirmed 01/30/18] tiotropium bromide 2.5 mcg/actuation mist for inhalation 2 puff INHALATION QDAY #1 ea 06/29/17 [Rx Confirmed 01/30/18] benzonatate 200 mg capsule 200 mg PO TID PRN #20 cap 01/28/18 [Rx Confirmed 01/30/18] levofloxacin 500 mg tablet 500 mg PO DAILY #10 tab 01/28/18 [Rx Confirmed 01/30/18] albuterol sulfate HFA 90 mcg/actuation aerosol inhaler 1 - 2 puff INHALATION Q6H PRN PRN #18 g 01/30/18 [Rx Confirmed 01/30/18] prednisone 10 mg tablet 10 mg PO QDAY #30 tab 01/30/18 [Rx Confirmed 01/30/18] PFSH Medical History Depression (Chronic) Limb weakness (Chronic) Tobacco abuse (Chronic) Hyperlipidemia (Chronic) GERD (gastroesophageal reflux disease) (Chronic) Allergic rhinitis (Chronic) COPD (chronic obstructive pulmonary disease) (Chronic) Cervicalgia (Chronic) Cervical radiculopathy (Chronic) Rotator cuff syndrome (Chronic) Segmental and somatic dysfunction of thoracic region (Chronic) Acute maxillary sinusitis (Chronic) Bursitis of right shoulder (Chronic) Bicipital tendinitis of right shoulder (Chronic) Family history of alcoholism (Chronic) Shortness of breath (Chronic) TAMRA (obstructive sleep apnea) (Chronic) Rheumatoid arthritis (Chronic) Spontaneous rupture of extensor tendons, right forearm (Resolved) Segmental and somatic dysfunction of lumbar region (Chronic) Incontinence (Acute) Surgical History History of surgery on arm (Resolved) History of laparoscopic cholecystectomy (Resolved) History of appendectomy (Resolved) h/o trigger finger release (Acute) Family History Mother COPD (chronic obstructive pulmonary disease) Heart disease Osteoarthritis TAMRA (obstructive sleep apnea) Father Cancer throat Social History Smoking Status: Current every day smoker second hand exposure: Yes alcohol intake: current substance use type: does not use caffeine: Yes what type of physical activity do you participate in: none HPI HPI Chief Complaint: Cough Details: LAUREN MALDONADO, is a 57 F who presents to the office today for reassessment due to persistent moist cough, worse when supine and mild chills though no complaints of fever - without mention of facial pressure/congestion today. Patient is most concerned due to persistent fatigue. Patient notes compliance with medications as previously prescribed last evaluation noting essentially no change in her symptoms. Patient admits to continued smoking since her last evaluation here 2 days ago. She she otherwise notes no new updates compared to last evaluation. ROS Const Constitutional: No other (ROS negative x10 other than as noted above) Exam Const General: cooperative, healthy appearing, no acute distress Orientation: alert, awake, oriented x3 HENMT Head: normal to inspection Ears: hearing grossly normal bilaterally, external ears normal, TM's normal bilaterally, EAC's normal Nose: external nose normal, nares normal, septum normal, no nasal discharge Face and sinus: normal facial exam, sinuses nontender, face symmetric Mouth: tongue normal, lip normal, oral mucosae normal Teeth and gingiva: dentition normal, gingiva normal Throat: uvula midline, tonsils normal, posterior oropharynx normal, no postnasal drainage Eyes General: appearance normal, both eyes and all related structures Neck Neck: normal visual inspection, full ROM, no lymphadenopathy Neck mass: No Thyroid: thyroid normal Lymphatic: no lymphadenopathy noted Chest Chest palpation AND inspection: normal inspection of the chest Resp Effort AND Inspection: normal respiratory effort, able to speak in complete sentences, symmetric chest movement, cough Quality of cough: wet (Nonproductive) Auscultation: Bilateral: Clear to Auscultation Cardio Palpation: normal PMI Rate: regular rate Rhythm: regular rhythm Heart Sounds: S1 normal, S2 normal, no gallops, no murmurs, no rubs Pulses: radial pulses present GI Inspection: normal to inspection Skin General: no rashes or lesions noted Neuro General: alert, awake, oriented x3, gait normal Cognition: normal cognition Speech: speech normal Gait: normal gait Motor: muscle tone normal throughout Sensory Exam: no sensory deficits noted Extrem General: normal to inspection Psych Appearance: grossly normal Mental Status: mental status grossly normal Mood: congruent mood Affect: normal affect Speech and Movement: speech and movement normal Attitude: cooperative Thought Process: normal Thought Content: normal Judgment: judgment good Assessment AND Plan Problems 1. Acute maxillary sinusitis J01.00 2. Bronchitis J40 Plan Chest x-ray today reveals no acute abnormalities per radiology interpretation. Continue Levaquin and benzonatate as previously prescribed. Work excuse for today. Follow-up with pulmonology first available appointment, emergency department sooner should symptoms worsen or any other concerns develop. Stop smoking! Patient states acknowledging understanding all the above. This note was generated with [employer]umation software. It may contain incorrect words, spelling, and punctuation that were not noted in checking the note before signing. Orders Orders: Coding Level of Care Code Off vis,est,level 4 Diagnoses Acute maxillary sinusitis J01.00 Bronchitis J40 01/30/18 0900 <Electronically signed by Juan Jose CARABALLO> Date Juan Jose CARABALLO Cosigner Signature: Date (if applicable) CC: CHEST PA AND LATERAL Observed: 01/30/2018 Status: F Source: [place] 7:[address] [facility] REPOSITORY [facility] Imaging Services [address] [place] [id number] Chest PA and Lateral MR#: [id number] Acct: [id number] Name: LAUREN MALDONADO Rep #: [id number] : 1960 F 57 From: Beny Schwab MD PCP: Blair MARTIN,Glowbl Status: REG CLI Study: Chest PA and Lateral Date of Exam: 01/30/18 Exam# [id number] Ordering Dr: Juan Jose Lagunas STUDY: X-RAY CHEST REASON FOR EXAM: Female, 57 years old. Cough. TECHNIQUE: PA and lateral views of the chest. COMPARISON: Comparison is made with prior study dated December 27, 2015. FINDINGS: Hyperinflation. There is no demonstrated pleural abnormality. Normal size heart. Calcified bilateral hilar lymph nodes. No acute infiltrate is seen. Normal visualized pulmonary arteries. There is atherosclerotic tortuosity of the aortic arch and descending thoracic aorta. There are diffuse degenerative changes of the visualized thoracic spine. Normal visualized ribs, clavicles, and shoulders. There is no demonstrated abnormality of the visualized soft tissue structures of the upper abdomen. RAD/Chest PA and Lateral IMPRESSION: Hyperinflation. No acute abnormality is seen. Electronically Signed: Beny Schwab MD at 8:47 EST Tel [phone], Service support , CC: Juan Jose CARABALLO; Leon Pinto MD Epitaxial Reactor Operator: Signed HEPATITIS B SURFACE Collected: 11/13/2017 Status: F Source: [place] 4:[address] [facility] REPOSITORY TYPE CODE TESTS RESULT OUT OF RANGE REFERENCE UNITS LAB L3100.0400 Negative Normal HB Negative SURF AG Performed By: #### L3100.0390, L3100.0440, L3400.7000 #### [facility] (refer to report for specific site) refer to report for address and phone number HEPATITIS B CORE AB Collected: 11/13/2017 Status: F Source: [place] IGM 4:[address] [facility] REPOSITORY TYPE CODE TESTS RESULT OUT OF RANGE REFERENCE UNITS LAB L3100.0440 Negative Normal HB Negative CORE [id number] Result Comment: Performed at: [facility] [id number] Metalsmith: Doc Rizzo PhD, Phone: [phone] Performed By: #### L3100.0390, L3100.0440, L3400.7000 #### [facility] (refer to report for specific site) refer to report for address and phone number QUANTIFERON TB-GOLD Collected: 11/13/2017 Status: F Source: [place] 4:[address] [facility] REPOSITORY TYPE CODE TESTS RESULT OUT OF RANGE REFERENCE UNITS LAB L3400.7025 Negative Normal QFT Negative TB GOLD Result Comment: The specimen received for QuantiFERON testing was incubated by the ordering institution. Specific procedures outlined in our Directory of Services and in the package insert for the QuantiFERON Gold (In Tube) test must be followed to enable for proper stimulation of cells for the production of interferon gamma. LAB L3400.7035 . Normal QFT TB Comment POS CRIT Result Comment: To be considered positive a specimen should have a TB Ag minus Nil value greater than or equal to 0.35 IU/mL and in addition the TB Ag minus Nil value must be greater than or equal to 25% of the Nil value. There may be insufficient information in these values to differentiate between some negative and some indeterminate test values. LAB L3400.7045 . IU/mL Normal QFT TB AB 0.13 VALUE LAB L3400.7055 . IU/mL Normal QFT NIL VALUE 0.24 LAB L3400.7065 . IU/mL > Normal QFT MITOGEN 10.00 ANTHONY LAB L3400.7075 . IU/mL < Normal QFT AG - NIL 0 LAB L3400.7085 . Normal QFT TB INTER Comment Result Comment: The QuantiFERON TB Gold (in Tube) assay is intended for use as an aid in the diagnosis of TB infection. Negative results suggest that there is no TB infection. In patients with high suspicion of exposure, a negative test should be repeated. A positive test indicates infection with Mycobacterium tuberculosis. Among individuals without tuberculosis infection, a positive test may be due to exposure to M. kansasii, M. szulgai or M. marinum. On the Internet, go to cdc.gov/tb for further details. Effective fall, [facility] number [id number] QuantiFERON Client Incubated with three tube collection kit will be made non-orderable following depletion of collection and testing kits. *WhenSoon offers [id number] QuantiFERON-TB Plus (Client Incubated)* with four tube collection kit. Performed By: #### L3100.0390, L3100.0440, L3400.7000 #### [facility] (refer to report for specific site) refer to report for address and phone number RISA, EMPLOYEE Collected: 10/31/2017 Status: F Source: [place] 9:[address] [facility] REPOSITORY TYPE CODE TESTS RESULT OUT OF RANGE REFERENCE UNITS LAB L100.1000 4.4-11.0 K/mm3 Normal WBC 6.5 LAB L100.1200 4.2-5.4 M/mm3 Normal RBC 4.49 LAB L100.1300 12.0-15.0 g/dl Normal HGB 14.5 LAB L100.1400 37-47 % Normal HCT 42.8 LAB L100.1500 81-99 fL Normal MCV 95.3 LAB L100.1600 27.0-32.0 pg High MCH 32.3 LAB L100.1700 32-36 g/gl Normal MCHC 33.9 LAB L100.1810 11.6-14.6 % Normal RDW CV 14.2 LAB L100.1820 35.1-43.9 fl High RDW SD 47.7 LAB L100.1900 150-450 K/mm3 Normal PLT 316 LAB L100.2000 6.2-12.0 fl Normal MPV 8.6 LAB L100.2110 47-70 % Normal NEUT% 59.3 LAB L100.2210 19-41 % Normal LY% 30.9 LAB L100.2310 0-10 % Normal MONO% 8.4 LAB L100.2410 0-5 % Normal EO% 0.6 LAB L100.2510 0-1 % Normal BASO% 0.2 LAB L100.2620 2.0-7.7 X10 3/uL Normal Absolute Neut 3.9 LAB L100.2720 0.83-4.51 X10 3/ul Normal Absolute Lymph 2.02 Performed By: #### L100.0200 #### [facility] [address] [place], [place], [address] [employer]INAL[employer], EMPLOYEE Collected: 10/31/2017 Status: F Source: [place] 9:[address] [facility] REPOSITORY TYPE CODE TESTS RESULT OUT OF RANGE REFERENCE UNITS LAB L400.3000 Yellow COLOR Normal Yellow LAB L400.3050 Clear Normal CLARITY Clear LAB L400.3200 Normal mg/dl Normal GLUCOSE, UR Normal LAB L400.3300 Negative mg/dL Normal BILIRUBIN URINE Negative LAB L400.3400 Negative mg/dl Normal KETONE UR Negative LAB L400.3465 1.002-1.030 Normal SP.GR. DIPSTX 1.010 LAB L400.3550 5.0 - 8.0 pH UR Normal 7.0 LAB L400.3600 Negative mg/dl PROT Normal DIPSTX Negative LAB L400.3700 Normal mg/dl Normal UROBILI Normal LAB L400.3750 Negative Normal NITRITE UR Negative LAB L400.3780 Negative /ul Normal OCCULT BLOOD-UR Negative LAB L400.3800 Negative /ul High LEUK 25 ESTERASE Performed By: #### L400.0100 #### [facility] [address] [place], [address] EMPLOYEE PROFILE Collected: 10/31/2017 Status: F Source: [place] 9:[address] [facility] REPOSITORY TYPE CODE TESTS RESULT OUT OF RANGE REFERENCE UNITS LAB L501.0100 74-106 mg/dL Normal GLU 98 Result Comment: Please note revised GLUCOSE reference range effective 2017. LAB L501.1000 7-18 mg/dL Normal BUN 15 LAB L501.1100 0.55-1.02 mg/dL Normal CREAT,SERUM 0.89 Result Comment: The validity of the calculated GFR AND GFRAA in patients over 70 years has not been determined. Clinical correlation is essential. LAB L501.1110 >60 mL/min Normal EST GFR 70 Result Comment: Non- GFR Calc LAB L501.1115 >60 mL/min Normal EST GFR - AA 84 Result Comment: GFR Calc LAB L501.1300 10-20 RATIO Normal BUN/CRE 16.8 LAB L501.1400 2.6-6.0 mg/dL Normal URIC 4.8 Result Comment: The drugs N-Acetylcysteine and Metamizole may falsely depress this assay. LAB L501.1500 6.4-8.2 g/dL Normal T PROT 7.6 LAB L501.1800 3.2-5.0 g/dL Normal ALB 3.8 LAB L501.1950 2.2-4.2 g/dL Normal GLOB 3.8 LAB L501.2000 0.9-2.4 RATIO Normal A/G 1.0 LAB L501.2200 8.5-10.1 mg/dL Normal CA 9.5 LAB L501.2300 2.5-4.9 mg/dL Normal PHOS 3.7 LAB L501.4100 15-37 U/L Normal AST 16 LAB L501.4305 45-117 U/L Normal ALK P 77 LAB L501.4405 13-56 U/L Normal ALT 23 LAB L501.4600 0.20-1.00 mg/dL Normal T BILI 0.30 LAB L501.4700 0.00-0.30 mg/dL Normal D BILI 0.11 LAB L501.4900 200 mg/dL High CHOL 203 Result Comment: <200 mg/dL Desirable 200-240 mg/dL Borderline >240 mg/dL High Risk LAB L501.5000 mg/dL Normal TRIG 105 Result Comment: The drugs N-Acetylcysteine and Metamizole may falsely depress this assay. Serum Triglycerides Reference Interval Normal <150 mg/dL Borderline high 150 - 199 mg/dL High 200 - 499 mg/dL Very High > or = 500 mg/dL LAB L501.5300 136-145 mmol/L Normal NA 138 LAB L501.5600 3.5-5.1 mmol/L Normal K 4.3 LAB L501.5900 98-107 mmol/L Normal CL 103 LAB L501.6100 21.0-32.0 mmol/L Normal CO2 26.0 LAB L501.6200 5-15 Normal 9 GAP LAB L501.6400 mg/dL Normal HDL 61 Result Comment: The drugs N-Acetylcysteine and Metamizole may falsely depress this assay. Reference Range HDL <40 mg/dL Low HDL Cholesterol HDL >or= 60 mg/dL High HDL Cholesterol LAB L501.6475 Normal CHOL:HDL 3.30 LAB L501.6500 0-130 mg/dL Normal LDL 121 LAB L501.6600 5-40 mg/dL Normal VLDL 21 LAB L504.2610 84-246 U/L Normal LDH 203 Performed By: #### L500.2900 #### [facility] [address] [place], [address] NICOTINE URINE DRUG Collected: 10/31/2017 Status: F Source: [place] SCREEN 9:[address] [facility] REPOSITORY TYPE CODE TESTS RESULT OUT OF RANGE REFERENCE UNITS LAB L505.6250 TO BE Normal CONFIRMED Result Comment: CONFIRMATORY TESTING FOR ALL POSITIVE URINE DRUG SCREEN RESULTS WILL ONLY BE SENT OUT UPON PHYSICIAN ORDER. The results of Urine Drug Screen methods provide only preliminary analytical test results. A more specific alternate chemical method must be used in order to obtain a confirmed analytical result. Gas chromatography/mass spectrometery (GC/MS) is the preferred confirmatory method. Clinical consideration and professional judgement should be applied to any drug of abuse test result, particularly when preliminary positive results are used. LAB L505.6270 <200 ng/mL High COT DRG Positive SCREEN Result Comment: Cotinine is the first-stage metabolite of Nicotine. Performed By: #### L505.6240 #### [facility] [address], [address] FOOT MIN 3 VIEWS Observed: 10/30/2017 Status: F Source: [place] 10:[address] [facility] REPOSITORY [facility] Imaging Services [address] [place] [address] Foot min 3 Views MR#: [id number] Acct: [id number] Name: LAUREN MALDONADO Rep #: [id number] : 1960 F 57 From: Shelly Dumont MD PCP: Blair MARTIN,Leon Jacome Status: REG CLI Study: Foot min 3 Views Date of Exam: 10/30/17 Exam# [id number] Ordering Dr: Mary Ramirez DPM STUDY: X-RAY - RIGHT FOOT CLINICAL: Female, 57 years old. Pain top and medial foot for years with worsening TECHNIQUE: 3 view(s) of the foot. COMPARISON: The right foot x-ray dated December 12, 2010 was not provided for interpretation. FINDINGS: There is a plantar and Achilles spur. Normal visualized subtalar, talonavicular, calcaneocuboid, tarsal and tarsometatarsal articulations. There is a mildly curved appearance of the fifth metatarsal which may represent old injury. There is no visualized evidence of an acute fracture. Normal metatarsophalangeal joint of the great toe. Normal tibial and fibular sesamoid bones. Normal interphalangeal joint of the great toe. Normal phalanges of the great toe. Normal second through fifth metatarsophalangeal joints. Normal interphalangeal joints and phalanges of the lesser toes. The soft tissue structures are unremarkable. RAD/Foot min 3 Views IMPRESSION: Possible old injury of the fifth metatarsal. No visualized acute fracture. Plantar and Achilles spur. Electronically Signed: Shelly Dumont MD at 18:22 EDT Tel , Service support , CC: Mary Ramirez DPM; Leon Pinto MD Epitaxial Reactor Operator: Signed ERYTHROCYTE SED RATE Collected: 09/13/2017 Status: F Source: [place] 12:[address] [facility] REPOSITORY TYPE CODE TESTS RESULT OUT OF RANGE REFERENCE UNITS LAB L102.0000 0-30 mm/hr Normal SED RATE 17 Performed By: #### L101.9900, L100.0500 #### [facility] [address] [place], [address] CBC-COMPLETE BLOOD CNT Collected: 09/13/2017 Status: F Source: [place] NO DIFF 12:[address] [facility] REPOSITORY TYPE CODE TESTS RESULT OUT OF RANGE REFERENCE UNITS LAB L100.1000 4.4-11.0 K/mm3 Normal WBC 8.6 LAB L100.1200 4.2-5.4 M/mm3 Normal RBC 4.25 LAB L100.1300 12.0-15.0 g/dl Normal HGB 13.5 LAB L100.1400 37-47 % Normal HCT 40.6 LAB L100.1500 81-99 fL Normal MCV 95.5 LAB L100.1600 27.0-32.0 pg Normal MCH 31.8 LAB L100.1700 32-36 g/gl Normal MCHC 33.3 LAB L100.1810 11.6-14.6 % Normal RDW CV 13.9 LAB L100.1820 35.1-43.9 fl High RDW SD 47.6 LAB L100.1900 150-450 K/mm3 Normal PLT 307 LAB L100.2000 6.2-12.0 fl Normal MPV 8.8 Performed By: #### L101.9900, L100.0500 #### [facility] [address] [place], [address] COMPREHENSIVE METABOLIC Collected: 09/13/2017 Status: F Source: [place] [facility] 12:[address] [facility] REPOSITORY TYPE CODE TESTS RESULT OUT OF RANGE REFERENCE UNITS LAB L501.0100 74-106 mg/dL Normal GLU 82 Result Comment: Please note revised GLUCOSE reference range effective 2017. LAB L501.1000 7-18 mg/dL Normal BUN 15 LAB L501.1100 0.55-1.02 mg/dL Normal CREAT,SERUM 0.90 Result Comment: The validity of the calculated GFR AND GFRAA in patients over 70 years has not been determined. Clinical correlation is essential. LAB L501.1110 >60 mL/min Normal EST GFR 69 Result Comment: Non- GFR Calc LAB L501.1115 >60 mL/min Normal EST GFR - AA 83 Result Comment: GFR Calc LAB L501.1300 10-20 RATIO Normal BUN/CRE 16.7 LAB L501.1500 6.4-8.2 g/dL T Normal PROT 7.2 LAB L501.1800 3.2-5.0 g/dL Normal ALB 3.8 LAB L501.1950 2.2-4.2 g/dL Normal GLOB 3.4 LAB L501.2000 0.9-2.4 RATIO Normal A/G 1.1 LAB L501.2200 8.5-10.1 mg/dL CA Normal 9.1 LAB L501.4100 15-37 U/L Normal AST 17 LAB L501.4305 45-117 U/L Normal ALK P 80 LAB L501.4405 13-56 U/L Normal ALT 32 LAB L501.4600 0.20-1.00 mg/dL T Normal BILI 0.20 LAB L501.5300 136-145 mmol/L NA Normal 141 LAB L501.5600 3.5-5.1 mmol/L K Normal 4.0 LAB L501.5900 98-107 mmol/L CL Normal 105 LAB L501.6100 21.0-32.0 mmol/L Normal CO2 31.0 LAB L501.6200 5-15 Normal GAP 5 Performed By: #### L500.4050, L501.6710 #### [facility] [address], [address] CRP Collected: 09/13/2017 Status: F Source: [place] 12:[address] [facility] REPOSITORY TYPE CODE TESTS RESULT OUT OF RANGE REFERENCE UNITS LAB L501.6710 0.0-3.0 mg/L High 8.02 C-REACTIVE PROT Result Comment: C-Reactive Protein (CRP) provides useful information for the diagnosis, therapy and monitoring of inflammatory processes and associated diseases. For the evaluation of Relative Risk for Cardiovascular Disease, a High Sensitivity CRP (HSCRP) should be ordered. Performed By: #### L500.4050, L501.6710 #### [facility] [address] [place], [place], [address] PULMONARY VISIT REPORT Observed: 09/06/2017 Status: F Source: [place] 9:[address] [facility] REPOSITORY [facility] [address] [place] [address] OFFICE VISIT Date of Service: 09/06/17 MR#: [id number] Acct: [id number] Name: LAUREN MALDONADO Rep #: [id number] : 1960 Provider: Delisa Foster Age/Sex: 57/F Location: [facility] Status: Signed Assessment AND Plan 1. TAMRA (obstructive sleep apnea) G47.33 Plan Stable. She is using and benefiting from current CPAP. No indication for titration study. Follow-up with Dr. Joseph in 6 months. 2. 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 classification J44.9 Status Chronic FEV1 65% of predicted Plan Stable. She does not appear to be in exacerbation today. No indication to step up therapy, continue current maintenance medications. Repeat pulmonary function test and pulmonary stress test prior to 6 month follow-up with Dr. Joseph. Orders Orders: 3. Tobacco abuse Z72.0 Plan Deteriorated. Smoking 1 pack of cigarettes daily. Patient reports that she has tried Chantix and Wellbutrin in the past without success. She has tried cold turkey, nicotine gum and nicotine patches. Lengthy discussion, 7 minutes [id number], regarding smoking cessation. The patient reports that she will try using suckers and cold turkey, with hopes to be smoke free when she sees Dr. Joseph in 6 months. Plan Detail Follow Up 6 Months (BWA) HPI HPI Comments Details: This is a 57 year old f, currently under the care of Dr. Pinto of [facility] [place] [facility], here to follow up for sleep apnea, and moderate COPD. She is ambulatory, currently in room air. She has not been seen in the ED or urgent care for any respiratory illnesses since her last office visit. She does not require antibiotics or prednisone for any breathing problems. She is compliant with Spiriva once daily. She denies any medication side effects such as sore throat or hoarseness. She has a rescue inhaler but has not needed to use it. She does report occasional shortness of breath on exertion, with wheezing. It is more noticeable with hot humid air. She does have a cough is productive of clear sputum in the morning, denies any hemoptysis. She has not experienced any chest tightness, palpitations or chest pain. She denies any fever, chills or body aches. She continues to smoke 1 pack of cigarettes daily. See complete review of systems. Current use of pressure support therapy is on average of nearly 8 hours per night with current settings of 11 cmH2O. LAUREN denies any daytime somnolence, dry mouth in the morning, nocturia, snoring through the mask, morning headaches or difficulty with mask leaks. LAUREN reports feeling rested in the morning and is benefitting from current therapy. Compliance report was reviewed and shows 100%, current AHI is controlled with an average of 1.6 events per hour, leaks do not appear to be an issue. Intake Vital Signs09/06/17 Height 5 ft 5 in 09/06/17 Weight: 231 lb Intake Visit Reasons: 6 M FU [facility] Vendor: [employer] Accompanied by: Self Is patient in pain?: No Allergies adalimumab [From Humira] Allergy (Verified 06/20/17 08:55) Rash Penicillins Allergy (Verified 06/20/17 08:55) Rash tramadol Adverse Reaction (Verified 06/20/17 08:55) FEELING OF CONFUSION Medications Albuterol Inhaler [Ventolin Hfa (SP)] 1 - 2 puff INHALATION Q6H PRN PRN 05/18/16 [History Confirmed 06/06/17] Hydroxychloroquine [Plaquenil] 200 mg PO BIDCM 05/18/16 [History Confirmed 06/06/17] Omeprazole [Prilosec] 40 mg PO DAILY 05/18/16 [History Confirmed 06/06/17] Potassium Citrate [Potassium Citrate ER] 20 meq PO BID 05/18/16 [History Confirmed 06/06/17] Sertraline HCl [Zoloft] 50 mg PO DAILY 05/18/16 [History Confirmed 06/06/17] albuterol sulfate 2.5 mg/3 mL (0.083 %) solution for nebulization 2.5 mg INHALATION Q6H PRN ml 02/13/17 [History Confirmed 06/06/17] pravastatin 20 mg tablet 20 mg PO QHS 02/13/17 [History Confirmed 06/06/17] Folic Acid 1 mg PO DAILY@0800 04/09/17 [History Confirmed 06/06/17] Methotrexate 25 mg PO QWEEK 04/09/17 [History Confirmed 06/06/17] tiotropium bromide 2.5 mcg/actuation mist for inhalation 2 puff INHALATION QDAY #1 ea 06/29/17 [Rx] [facility] Medical History Depression (Chronic) Limb weakness (Chronic) Tobacco abuse (Chronic) Hyperlipidemia (Chronic) GERD (gastroesophageal reflux disease) (Chronic) Allergic rhinitis (Chronic) COPD (chronic obstructive pulmonary disease) (Chronic) Cervicalgia (Chronic) Cervical radiculopathy (Chronic) Rotator cuff syndrome (Chronic) Segmental and somatic dysfunction of thoracic region (Chronic) Acute maxillary sinusitis (Chronic) Bursitis of right shoulder (Chronic) Bicipital tendinitis of right shoulder (Chronic) Family history of alcoholism (Chronic) Shortness of breath (Chronic) TAMRA (obstructive sleep apnea) (Chronic) Rheumatoid arthritis (Chronic) Spontaneous rupture of extensor tendons, right forearm (Resolved) Segmental and somatic dysfunction of lumbar region (Chronic) Surgical History History of surgery on arm (Resolved) History of laparoscopic cholecystectomy (Resolved) History of appendectomy (Resolved) h/o trigger finger release (Acute) Family History Mother COPD (chronic obstructive pulmonary disease) Heart disease Osteoarthritis TAMRA (obstructive sleep apnea) Father Cancer throat Social History Smoking Status: Current every day smoker second hand exposure: Yes alcohol intake: current substance use type: does not use caffeine: Yes what type of physical activity do you participate in: none FEV1% FEV1%: 65 Review of Systems Const CONSTITUTIONAL: Negative anorexia, body ache, chills, daytime sleepiness, fever(s), night sweats, oral thrush, stops breathing during sleep, weight loss, sleeping in chair, fatigue, weight loss, weight gain, frequent colds, seasonal allergies, other, headache(s) or orthopnea EETM Ear Nose Throat Mouth: Positive hearing normal; negative hard of hearing, hoarseness, dry mouth in morning, change in vision, itchy eyes, eye pain, swallowing Difficulty, ear pain, nose bleed, headache(s), mouth pain, nasal congestion, nasal discharge, post nasal drip, sinus pain, sinus pressure, sore throat or other Cardio Cardiovascular: Negative chest pain, chest pain at rest, chest pain with activity, irregular heart rhythm, edema, shortness of breath when lying down, palpitations, murmur or other Resp Respiratory: Positive as per HPI, shortness of breath shortness of breath: Positive with activity and cough cough: Positive productive color: Positive clear; negative pain with cough, wheezing, chest congestion, chest tightness, pain on inspiration, inhalers, increase use of rescue inhalers, snoring, apnea or other Gastro Gastrointestional: Negative bloody stools, change in appetite, difficulty swallowing, reflux, hematemesis, melena stool, loose stool, constipation or other Genitourinary: Negative blood in urine, nocturia, pain with urination or other Musc Musculoskeletal: Negative body pain, back pain, neck pain or other Skin/Breast Skin/Breast: Negative dry skin, itching, rash, unusual bruising, breast lump or other Neuro Neurological: Negative restless legs, confusion, weakness or other Psych Psychocological: Negative abnormal sleep pattern, anxiety, thoughts of hurting self/others, hopelessness or other Lymph Lymphatic: Negative easy bleeding, easy bruising, swollen lymph nodes or other Exam Const Constitutional: Positive conversant, cooperative, in no acute respiratory distress, healthy appearing, well developed, well nourished, good hygiene, obese and smells of smoke Head Head: Positive normocephalic and atraumatic; negative cyanosis of lips/distal nose Eyes Eye: Positive clear conjunctiva; negative nystagmus or scleral abnormality Ears Ear: Positive hearing normal and external ears normal; negative hard of hearing Nose Nose: Positive external nose normal and no nasal discharge; negative epistaxis Mouth Mouth: Positive oral mucosae normal, no lesions, crowded posterior oropharynx and good dentition; negative post nasal drip, malodorous breath or oral thrush present Mallampati Score: III: Mallampati Score Neck Neck: Positive normal visual inspection, full ROM and trachea midline; negative lymphadenopathy, JVD or tender Chest Wall Chest: Positive normal inspection of the chest and symmetric chest movement; negative increased A/P diameter Resp lung sounds: Positive clear to auscultation, good air exchange, normal expiratory time and normal respiratory effort; negative diminished, wheezes, rhonchi, rales, dullness to percussion or wheeze present on forced exhalation Cardio Cardiac: Positive regular rate, regular rhythm, S1 normal and S2 normal; negative murmur GI GI: Positive normal to inspection, normal bowel sounds and obese; negative distended Genitourinary: Positive deferred Musc Musculoskeletal: Positive steady gait and ROM normal; negative kyphosis or scoliosis Skin Pulmonary Skin Exam: Positive intact; negative rash, lesion, ulcers, erythema or scaly Pulses Pulse: Yes pulses normal x4 extremities Extremities Extremities: Yes edema Location: lower extremity location: Bilateral pitting trace, Yes capillary refill normal, No clubbing, No cyanosis, No stasis dermatitis Neuro Neurologic: Yes conversant, Yes no focal neuro deficits, Yes cooperative, Yes understands questions, Yes normal concentration, Yes normal cognition, Yes normal coordination Lymph Lymphatic: No lymphadenopathy, No tenderness, No cervical adenopathy, No axillary adenopathy Psych Appearance: Positive grossly normal, eye contact and well kempt Mental Status: Positive mental status grossly normal Mood: Positive congruent mood Affect: Positive normal affect Office Procedures Smoking Cessation Time Spent 3-10 minutes: Yes Coding Level of Care Code Off vis,est,level 3 Diagnoses TAMRA (obstructive sleep apnea) G47.33 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 classification J44.9 Tobacco abuse Z72.0 Additional Codes Time Spent - 3-10 minutes: Yes ([id number]) 09/06/17 0946 <Electronically signed by Delisa HARRISC> Date Delisa Foster NP-C Cosigner Signature: Date (if applicable) CC: Leon Pinto MD ORTHOPEDIC VISIT Observed: 06/21/2017 Status: F Source: [place] REPORT 4:[address] [facility] REPOSITORY [facility] Orthopaedics AND Sports Medicine [address] [place] [address] [place] [address] OFFICE VISIT Date of Service: 06/19/17 MR#: [id number] Acct: [id number] Name: LAUREN MALDONADO Rep #: [id number] : 1960 Provider: Jojo Santana DO Age/Sex: 57/F [place] [facility] [place] [place]: Signed Intake Intake Visit Reasons: right finger Is patient in pain?: Yes Pain scale (1-10): 1 Allergies adalimumab [From Humira] Allergy (Verified 06/20/17 08:55) Rash Penicillins Allergy (Verified 06/20/17 08:55) Rash tramadol Adverse Reaction (Verified 06/20/17 08:55) FEELING OF CONFUSION Medications Albuterol Inhaler [Ventolin Hfa (SP)] 1 - 2 puff INHALATION Q6H PRN PRN 05/18/16 [History Confirmed 06/06/17] Hydroxychloroquine [Plaquenil] 200 mg PO BIDCM 05/18/16 [History Confirmed 06/06/17] Omeprazole [Prilosec] 40 mg PO DAILY 05/18/16 [History Confirmed 06/06/17] Potassium Citrate [Potassium Citrate ER] 20 meq PO BID 05/18/16 [History Confirmed 06/06/17] Sertraline HCl [Zoloft] 50 mg PO DAILY 05/18/16 [History Confirmed 06/06/17] albuterol sulfate 2.5 mg/3 mL (0.083 %) solution for nebulization 2.5 mg INHALATION Q6H PRN ml 02/13/17 [History Confirmed 06/06/17] pravastatin 20 mg tablet 20 mg PO QHS 02/13/17 [History Confirmed 06/06/17] tiotropium bromide 2.5 mcg/actuation mist for inhalation 2 puff INHALATION QDAY #1 ea 03/12/17 [Rx Confirmed 06/06/17] Folic Acid 1 mg PO DAILY@0800 04/09/17 [History Confirmed 06/06/17] Methotrexate 25 mg PO QWEEK 04/09/17 [History Confirmed 06/06/17] PFSH Medical History Depression (Chronic) Limb weakness (Chronic) Tobacco abuse (Chronic) Hyperlipidemia (Chronic) GERD (gastroesophageal reflux disease) (Chronic) Allergic rhinitis (Chronic) COPD (chronic obstructive pulmonary disease) (Chronic) Cervicalgia (Chronic) Cervical radiculopathy (Chronic) Rotator cuff syndrome (Chronic) Segmental and somatic dysfunction of thoracic region (Chronic) Acute maxillary sinusitis (Chronic) Bursitis of right shoulder (Chronic) Bicipital tendinitis of right shoulder (Chronic) Family history of alcoholism (Chronic) Shortness of breath (Chronic) TAMRA (obstructive sleep apnea) (Chronic) Rheumatoid arthritis (Chronic) Spontaneous rupture of extensor tendons, right forearm (Resolved) Segmental and somatic dysfunction of lumbar region (Chronic) Surgical History History of surgery on arm (Resolved) History of laparoscopic cholecystectomy (Resolved) History of appendectomy (Resolved) h/o trigger finger release (Acute) Family History Mother COPD (chronic obstructive pulmonary disease) Heart disease Osteoarthritis TAMRA (obstructive sleep apnea) Father Cancer throat Social History Smoking Status: Current every day smoker second hand exposure: Yes alcohol intake: current substance use type: does not use what type of physical activity do you participate in: none HPI right finger: Details: LAUREN MALDONADO is a 57 year old F here today for s/p right middle finger A1 hiram release dos 06/06/17. Patient notes that she is doing well. She hyperextended her finger on Sunday which caused swelling and increased pain. Her incision is fully healed with no redness or drainage. She has lost one of her sutures as it unknoted and fell out. She denies any triggering but is unable to fully extend her finger. Denies numbness, tingling or other associated symptoms. ROS Const Reports system reviewed and no additional complaints, except as docu Eyes Reports system reviewed and no additional complaints, except as docu ENT Reports system reviewed and no additional complaints, except as docu Card Reports system reviewed and no additional complaints, except as docu Resp Reports system reviewed and no additional complaints, except as docu GI Reports system reviewed and no additional complaints, except as docu Reports system reviewed and no additional complaints, except as docu Musc Reports stiffness Skin/Breast Reports system reviewed and no additional complaints, except as docu Neuro Yes system reviewed and no additional complaints, except as docu Psych Reports system reviewed and no additional complaints, except as docu Endo Reports system reviewed and no additional complaints, except as docu Assessment AND Plan Plan Patient doing well from a postop standpoint no history of issues or other concerns. Has full range of motion without any triggering skin incision is well- healed. Patient pleased with the results will follow-up in 4 weeks or on an as-needed basis. Coding Level of Care Code Global Post Op 06/21/17 1641 <Electronically signed by Jojo Santana DO> Date Jojo Santana DO Cosigner Signature: Date (if applicable) CC: OPERATIVE REPORT Observed: 06/06/2017 Status: F Source: [place] 11:[address] [facility] REPOSITORY [facility] Medical Records Department [address] [place] [id number] Operative Report 06/06/17 1117 MR#: [id number] Acct: [id number] Name: LAUREN MALDONADO Rep #: [id number] : 1960 57 From: Jojo Santana DO PCP: Blair MARTIN,Leon Chi Status: REG SDC Y Location: [place] [address] Report of Operation Date of Procedure: 06/06/17 Pre-Operative Diagnosis: right middle finger trigger finger Post-Operative Diagnosis: same Surgery/Procedure Performed:: right middle finger A1 hiram release Type of Anesthesia:: Block,Justen Anesthesiologist: Luis Enrique Ramirez Drains: tt-8 mins Estimated Blood Loss (mL): none Fluids Replaced: 200cc lr Description of Procedure: Preoperative note Patient is a 57-year-old female with locking of her right long finger. Patient's failed conservative treatment elected proceed with right A1 hiram release as affecting her activities of daily living. Risks benefits and alternatives surgery discussed with patient. Risks including but not limited to blood loss, blood clot, infection, neurovascular injury, failure procedure, loss of life and loss of limb. Patient is aware like proceed with right long finger A1 hiram release. Operative note Patient seen and examined preoperative holding area. Right middle finger was marked. Patient is brought to the operating room placed supine on the operating table. Signing, anesthesia, antibiotics were administered. Right arm was prepped in usual sterile fashion after Justen block was initiated. We then marked out our incision for our A1 hiram release. We tested the skin to ensure that her Justen block was working which it was. Timeout was performed. We then made our incision over the A1 hiram with a 15 blade. We dissected down tenotomy syllable of the A1 hiram. We then carefully dissected the central portion of the A1 hiram and completed it both proximally and distally with tenotomies ensuring to protect the flexor tendon underneath. We then brought the flexor tendon out of the incision and flex and extend the finger to ensure no further triggering which there was not. We then irrigated the incision closed with copious amounts sterile saline. The incision was closed with interrupted 4-0 nylon stitch and sterile dressings were applied. The tourniquet was deflated for total working time of 8 minutes. Patient tolerated procedure well there are no complication patient was transferred to recovery room in stable condition. Postoperative note Use hand as tolerated Keep incision clean and dry if gets wet may change dressing Follow-up in 2 weeks for stitch removal next Call with increased pain numbness feeling further issues arise This note was generated with [employer] dictation software. It may contain incorrect words, spelling, and punctuation that were not noted in checking the note before signing. 06/06/17 1136 <Electronically signed by Jojo Santana DO> Date Jojo Santana DO CC: Jojo Santana DO; Leon Pinto MD Signed DISCHARGE INSTRUCTION Observed: 06/06/2017 Status: F Source: [place] 11:17 [facility] REPOSITORY [facility] Medical Records Department [address] [place] [address] Instructions for Home/Discharge Instructions 06/06/17 1116 MR#: [id number] Acct: [id number] Name: LAUREN MALDONADO Rep #: [id number] : 1960 57 From: Jojo Santana DO PCP: Blair MARTIN,Leon [place] Status: REG SDC Discharge Diet: No Restrictions - keep dressing clean and dry, if get incision wet- change dressing, follow up in 2 wks, call with concerns Discharge Activity: May Not Drive May shower in (days): 1 Ice area for (Minutes): 20 - Every hour while awake. Weight Bearing Status: Weight bearing as tolerated Keep extremity elevated above heart level: Operative Extremity Call your doctor if your incision/area has: Continuous Slow Oozing, Sudden Increased Bleeding, Increased Pain/ Swelling, Increased Redness, Foul Smelling Discharge Call your doctor if you observe: Fever of 101 or Higher, Coldness, Increased Pain, Numbness or Tingling, Change in Color, Calf discomfort Allergies/Adverse Reactions: Allergies adalimumab [From Humira] Allergy (Verified 02/21/17 08:52) Rash Penicillins Allergy (Verified 02/21/17 08:52) Rash tramadol Adverse Reaction (Verified 02/21/17 08:52) FEELING OF CONFUSION Medications to take at Discharge Albuterol Inhaler [Ventolin Hfa (SP)] 1 - 2 puff INHALATION Q6H PRN PRN 05/18/16 Hydroxychloroquine [Plaquenil] 200 mg PO BIDCM 05/18/16 Omeprazole [Prilosec] 40 mg PO DAILY 05/18/16 Potassium Citrate [Potassium Citrate ER] 20 meq PO BID 05/18/16 Sertraline HCl [Zoloft] 50 mg PO DAILY 05/18/16 albuterol sulfate 2.5 mg/3 mL (0.083 %) solution for nebulization 2.5 mg INHALATION Q6H PRN ml 02/13/17 pravastatin 20 mg tablet 20 mg PO QHS 02/13/17 tiotropium bromide 2.5 mcg/actuation mist for inhalation 2 puff INHALATION QDAY #1 ea 03/12/17 Folic Acid 1 mg PO DAILY@0800 04/09/17 Methotrexate 25 mg PO QWEEK 04/09/17 Primary Care Physician: Leon Pinto Chi, MD [Primary Care Provider] - Please Follow Up With: Jojo Santana DO - [phone] 06/06/17 1117 <Electronically signed by Jojo Santana DO> Date Jojo Santana DO CC: Leon Pinto MD ORTHOPEDIC VISIT Observed: 06/01/2017 Status: F Source: [place] REPORT 11:50 AM [facility] Orthopaedics AND Sports Medicine [address] [place] [address] [address] [place] [address] OFFICE VISIT Date of Service: 06/01/17 MR#: [id number] Acct: [id number] Name: LAUREN MALDONADO Rep #: [id number] : 1960 Provider: Jojo Santana DO Age/Sex: 57/F [place] [facility] [place] [place]: Signed Intake Intake Visit Reasons: RIGHT HAND Is patient in pain?: Yes Allergies adalimumab [From Humira] Allergy (Verified 02/21/17 08:52) Rash Penicillins Allergy (Verified 02/21/17 08:52) Rash oxybutynin Adverse Reaction (Verified 02/21/17 08:52) Upset Stomach tramadol Adverse Reaction (Verified 02/21/17 08:52) FEELING OF CONFUSION Medications Albuterol Inhaler [Ventolin Hfa (SP)] 1 - 2 puff INHALATION Q6H PRN PRN 05/18/16 [History Confirmed 06/01/17] Hydroxychloroquine [Plaquenil] 200 mg PO BIDCM 05/18/16 [History Confirmed 06/01/17] Omeprazole [Prilosec] 40 mg PO DAILY 05/18/16 [History Confirmed 06/01/17] Potassium Citrate [Potassium Citrate ER] 20 meq PO BID 05/18/16 [History Confirmed 06/01/17] Sertraline HCl [Zoloft] 50 mg PO DAILY 05/18/16 [History Confirmed 06/01/17] albuterol sulfate 2.5 mg/3 mL (0.083 %) solution for nebulization 2.5 mg INHALATION Q6H ml 02/13/17 [History Confirmed 06/01/17] pravastatin 20 mg tablet 20 mg PO QHS 02/13/17 [History Confirmed 06/01/17] tiotropium bromide 2.5 mcg/actuation mist for inhalation 2 puff INHALATION QDAY #1 ea 03/12/17 [Rx Confirmed 06/01/17] Folic Acid 1 mg PO DAILY@0800 04/09/17 [History Confirmed 06/01/17] Methotrexate 25 mg PO QWEEK 04/09/17 [History Confirmed 06/01/17] [facility] Medical History Depression (Chronic) Limb weakness (Chronic) Tobacco abuse (Chronic) Hyperlipidemia (Chronic) GERD (gastroesophageal reflux disease) (Chronic) Allergic rhinitis (Chronic) COPD (chronic obstructive pulmonary disease) (Chronic) Cervicalgia (Chronic) Cervical radiculopathy (Chronic) Rotator cuff syndrome (Chronic) Segmental and somatic dysfunction of thoracic region (Chronic) Acute maxillary sinusitis (Chronic) Bursitis of right shoulder (Chronic) Bicipital tendinitis of right shoulder (Chronic) Family history of alcoholism (Chronic) Shortness of breath (Chronic) TAMRA (obstructive sleep apnea) (Chronic) Rheumatoid arthritis (Chronic) Spontaneous rupture of extensor tendons, right forearm (Resolved) Segmental and somatic dysfunction of lumbar region (Chronic) Surgical History History of surgery on arm (Resolved) History of laparoscopic cholecystectomy (Resolved) History of appendectomy (Resolved) Family History Mother COPD (chronic obstructive pulmonary disease) Heart disease Osteoarthritis TAMRA (obstructive sleep apnea) Father Cancer throat Social History Smoking Status: Current every day smoker second hand exposure: Yes alcohol intake: current substance use type: does not use what type of physical activity do you participate in: none HPI RIGHT HAND: Details: LAUREN MALDONADO is a 57 year old F here today for right trigger finger, she had great success with injections to stop the trigger but now she is having pain with the locking. Denies numbness, tingling or other associated symptoms. She would like to discuss her options today whether or not another injection is warranted. [employer] Reports system reviewed and no additional complaints, except as docu Eyes Reports system reviewed and no additional complaints, except as docu ENT Reports system reviewed and no additional complaints, except as docu Card Reports system reviewed and no additional complaints, except as docu Resp Reports system reviewed and no additional complaints, except as docu GI Reports system reviewed and no additional complaints, except as docu Musc Reports limited joint movement, Reports stiffness, Reports joint pain Skin/Breast Reports system reviewed and no additional complaints, except as docu Neuro Yes system reviewed and no additional complaints, except as docu Psych Reports system reviewed and no additional complaints, except as docu Endo Reports system reviewed and no additional complaints, except as docu Ortho Exam Right Wrist/Hand Skin/Wound: Yes CDI Contralateral Normal: Yes A1 hiram trigger: Yes (middle) Assessment AND Plan 1. Trigger finger, right middle finger M65.331 Plan Patient pleased to hear upon discussion that she would not have to take much time off if she elected to proceed with surgery. As her finger is locking worse I doubt that injections would continue to be of benefit to her. Because of this discussing this further with patient patient elected to proceed with trigger finger release. Reviewed the surgery to release the A1 hiram. Instructed to stop the methotrexate for now and can begin a week after. Reviewed the pre-operative plans with the patient. Risks and benefits of the procedure were fully explained, including but not limited to infection, neurovascular injury, continued pain, arthritis, stiffness, need for further surgery, re-injury, DVT, PE, general risks of anesthesia, and loss of limb or life. The patient understands all the risks and does wish to proceed with written consent. Follow up post op or sooner if pain, swelling, numbness or associated symptoms, or concerns develop. All questions answered. Patient in agreement of plan. Coding Level of Care Code Off vis,est,level 4 Diagnoses Trigger finger, right middle finger M65.331 06/01/17 1150 <Electronically signed by Jojo Santana DO> Date Jojo Santana DO Cosigner Signature: Date (if applicable) CC: CBC W/DIFF, AUTOMATED Collected: 04/12/2017 Status: F Source: [place] 7:[address] [facility] REPOSITORY TYPE CODE TESTS RESULT OUT OF RANGE REFERENCE UNITS LAB L100.1000 4.4-11.0 K/mm3 Normal WBC 9.2 LAB L100.1200 4.2-5.4 M/mm3 Normal RBC 4.93 LAB L100.1300 12.0-15.0 g/dl Normal HGB 15.0 LAB L100.1400 37-47 % Normal HCT 44.4 LAB L100.1500 81-99 fL Normal MCV 90.1 LAB L100.1600 27.0-32.0 pg Normal MCH 30.4 LAB L100.1700 32-36 g/gl Normal MCHC 33.8 LAB L100.1810 11.6-14.6 % Normal RDW CV 13.5 LAB L100.1820 35.1-43.9 fl Normal RDW SD 43.9 LAB L100.1900 150-450 K/mm3 Normal PLT 351 LAB L100.2000 6.2-12.0 fl Normal MPV 8.8 LAB L100.2100 47-70 % Normal NEUT% 66.1 LAB L100.2200 19-41 % Normal LY% 25.1 LAB L100.2300 0-10 % Normal MONO% 7.7 LAB L100.2400 0-5 % Normal EO% 0.4 LAB L100.2500 0-1 % Normal BASO% 0.2 LAB L100.2550 0.0-0.9 % Normal IM GRAN % 0.500 Result Comment: IG% - Immature Granulocytes (promyelocytes, myelocytes and metamyelocytes) > 1% indicates that a LEFT SHIFT is Present. LAB L100.2620 2.0-7.7 X10 3/uL Normal Absolute Neut 6.1 LAB L100.2720 0.83-4.51 X10 3/ul Normal Absolute Lymph 2.31 Performed By: #### L100.0100, L101.9900 #### [facility] [address] [place], [place], [id number] ERYTHROCYTE SED RATE Collected: 04/12/2017 Status: F Source: [place] 7:[address] [facility] REPOSITORY TYPE CODE TESTS RESULT OUT OF RANGE REFERENCE UNITS LAB L102.0000 0-30 mm/hr Normal SED RATE 15 Performed By: #### L100.0100, L101.9900 #### [facility] [address] [place], [address] COMPREHENSIVE METABOLIC Collected: 04/12/2017 Status: F Source: [facility] 7:[address] [facility] REPOSITORY TYPE CODE TESTS RESULT OUT OF RANGE REFERENCE UNITS LAB L501.0100 74-106 mg/dL Normal GLU 84 Result Comment: Please note revised GLUCOSE reference range effective 2017. LAB L501.1000 7-18 mg/dL Normal BUN 17 LAB L501.1100 0.55-1.02 mg/dL Normal CREAT,SERUM 0.85 Result Comment: The validity of the calculated GFR AND GFRAA in patients over 70 years has not been determined. Clinical correlation is essential. LAB L501.1110 >60 mL/min Normal EST GFR 73 Result Comment: Non- GFR Calc LAB L501.1115 >60 mL/min Normal EST GFR - AA 88 Result Comment: GFR Calc LAB L501.1300 10-20 RATIO Normal BUN/CRE 19.9 LAB L501.1500 6.4-8.2 g/dL T Normal PROT 7.5 LAB L501.1800 3.2-5.0 g/dL Normal ALB 3.9 LAB L501.1950 2.2-4.2 g/dL Normal GLOB 3.6 LAB L501.2000 0.9-2.4 RATIO Normal A/G 1.1 LAB L501.2200 8.5-10.1 mg/dL CA Normal 9.3 LAB L501.4100 15-37 U/L Normal AST 19 LAB L501.4305 45-117 U/L Normal ALK P 77 LAB L501.4405 13-56 U/L Normal ALT 31 Result Comment: Please note revised ALT reference range effective 2017. LAB L501.4600 0.20-1.00 mg/dL Normal T BILI 0.30 LAB L501.5300 136-145 mmol/L Normal NA 138 LAB L501.5600 3.5-5.1 mmol/L Normal K 3.8 LAB L501.5900 98-107 mmol/L Normal CL 101 LAB L501.6100 21.0-32.0 mmol/L Normal CO2 29.0 LAB L501.6200 5-15 Normal GAP 8 Performed By: #### L500.4050, L501.6710 #### [facility] [address] [place], [address] CRP Collected: 04/12/2017 Status: F Source: [place] 7:[address] [facility] REPOSITORY TYPE CODE TESTS RESULT OUT OF RANGE REFERENCE UNITS LAB L501.6710 0.0-3.0 mg/L Normal < 2.90 C-REACTIVE PROT Result Comment: C-Reactive Protein (CRP) provides useful information for the diagnosis, therapy and monitoring of inflammatory processes and associated diseases. For the evaluation of Relative Risk for Cardiovascular Disease, a High Sensitivity CRP (HSCRP) should be ordered. Performed By: #### L500.4050, L501.6710 #### [facility] [address] [facility] [place], [address] OPERATIVE REPORT Observed: 04/09/2017 Status: F Source: [place] 4:[address] [facility] REPOSITORY [facility] Medical Records Department [address] [place] [address] Operative Report 04/09/17 1610 MR#: [id number] Acct: [id number] Name: LAUREN MALDONADO Rep #: [id number] : 1960 57 From: Rj Bravo MD PCP: Leon Pinto MD, Chi Status: [facility] Y Location: [facility] Problem List (1) Degeneration of cervical disc without myelopathy Status: Chronic (2) Cervical spondylosis Status: Chronic Report of Operation Date of Procedure: 04/09/17 Pre-Operative Diagnosis: Cervical spondylosis, cervical degenerative disc disease, cervical facet arthropathy Post-Operative Diagnosis: Cervical spondylosis, cervical degenerative disc disease, cervical facet arthropathy Surgery/Procedure Performed:: Right sided cervical radiofrequency ablation of the medial branch at C4, C5, C6, C7. Description of Surgical Findings:: PROCEDURE: Right-sided cervical radiofrequency ablation of the medial branch at C4, C5, C6, C7 PREOPERATIVE DIAGNOSES: Cervical spondylosis, cervical degenerative disc disease, and cervical facet arthropathy POSTOPERATIVE DIAGNOSES: Cervical spondylosis, cervical degenerative disc disease, and cervical facet arthropathy ANESTHESIA: MAC COMPLICATIONS: None BLOOD LOSS: Minimal PROCEDURE IN DETAIL: History and physical today was reviewed. Risks and benefits of the procedure were explained. The patient understood, agreed to our procedure, and informed consent was obtained. IV inserted per routine protocol. The patient was taken to the operating room, placed in a prone position with a pillow positioned underneath the chest. The neck area was prepped and draped in a sterile fashion using iodine x3. Under fluoroscopy guidance, on AP view, C4 through C7 vertebral bodies were visualized. Skin and subcutaneous tissues were anesthetized with approximately 10 mL of 1% lidocaine using a 25-gauge regular needle. Under direct visualization with fluoroscopy at approximately 15-degree angle, starting on the right C4, ending on the right C7, passing through the C5-C6 using a 20-gauge 10 cm with a 10 mm curved active tip radiofrequency ablation needle, the needle was passed through the skin. The tip of the needle was maneuvered and directed towards the apophyseal junction of each corresponding vertebra. Once the tip of the needle was at the vicinity of the medial branch and in contact with the bone, the needle was redirected more lateral towards the medial branch. Once in contact with the medial branch, the stylet of each needle was then removed. After negative aspiration of blood with CSF and confirmation of AP as well as oblique view, the radiofrequency ablation probe was then inserted at each level. Impedance was then recorded at C4 to be 316, at C5 241, at C6 287, at C7 329 ohms. Motor-evoked potential was then initiated to 1.5 volt without any motor response at each corresponding level. The radiofrequency ablation probe was then removed intact and a total of 4 mL preservative-free 1% lidocaine was injected in divided doses between those 4 levels after negative aspiration of blood with CSF. The radiofrequency ablation probe was then reinserted after confirmation of AP, oblique as well as lateral view. Radiofrequency ablation was then initiated to 80 degrees Celsius for 60 seconds at each level. Once concluded, the probe was then removed intact and a total of 3 mL of preservative-free 0.25% Marcaine with 40 mg Depo-Medrol was injected in divided doses between those 4 levels. The needles were then removed intact. The patient experienced no signs or symptoms of intrathecal, intravascular injection. The patient experienced no paraesthesia. The procedure was completed without any apparent difficulty, any complication. The patient appeared to tolerate well. Sensory as well as motor exam was unchanged from prior to procedure. ASSESSMENT AND PLAN: This is a 57-year-old female with cervical spondylosis, cervical degenerative disc disease, and cervical facet arthropathy, status post right-sided radiofrequency ablation of the medial branch C4 through C7. The patient will continue her current medications. The patient will follow up in approximately 2 weeks fo reevaluation. 04/09/17 1614 <Electronically signed by Rj Bravo MD> Date Rj Bravo MD CC: Rj Bravo; Leon Pinto MD Signed CERV SPINE 2 OR 3 Observed: 04/09/2017 Status: F Source: [place] VIEWS 12:[address] [facility] REPOSITORY [facility] Imaging Services [address] [place] [address] Cerv Spine 2 or 3 Views MR#: [id number] Acct: [id number] Name: LAUREN MALDONADO Rep #: [id number] : 1960 F 57 From: Beny Schwab MD PCP: Leon Pinto MD, Chi Status: [facility] Study: Cerv Spine 2 or 3 Views Date of Exam: 04/09/17 Exam# [id number] Ordering Dr: Rj Bravo MD STUDY: X-RAY - CERVICAL SPINE REASON FOR EXAM: Female, 57 years old. Chronic neck pain. TECHNIQUE: 9 coned-down view(s) of the cervical spine were obtained intraoperatively. COMPARISON: None FINDINGS: Fluoroscopic services was provided for right C4-C7 radiofrequency ablation. RAD/Cerv Spine 2 or 3 Views IMPRESSION: Imaging provided for intraoperative right-sided C4-C7 radiofrequency ablation. Electronically Signed: Beny Schwab MD at 9:30 EST Tel [phone], Service support , CC: Rj Bravo; Leon Pinto MD Epitaxial Reactor Operator: Signed ALLERGIES ALLERGIES DATE TYPE / CODE NAME / CODE REACTION SEVERITY SOURCE 01/30/2018 Drug Penicillins/ Rash Unknown [facility] All[facility]/4160 [id number](R [facility] 91764(SNOMED XNORM) Repository CT) 01/30/2018 Drug tramadol/F00 FEELING OF Unknown [place] [facility] Allergy/4160 2918477([facility] 77456(SNOMED RM) Repository CT) 01/30/2018 Drug adalimumab/F Rash Unknown [facility] Allergy/4160 [id number]([facility] 22324(SNOMED NORM) Repository CT) 02/21/2017 Drug oxybutynin/F Upset Stomach Unknown [facility] Allergy/4160 [id number](RX [facility] 38670(SNOMED NORM) Repository CT) ENCOUNTERS ENCOUNTERS ADMIT/DISCHARGE ACCOUNT ADMITTING ENCOUNTER LOCATION SOURCE NUMBER CLASS 03/11/2018 [id number] Ambulatory [place] 1 [facility] ing:PSN Repository 03/08/2018 [id number] Ambulatory Johny [facility] 9 [facility] ing:PSN Repository 03/05/2018 [id number] Ambulatory Johny [place] 3 [facility] ing:PSN Repository 01/30/2018/ [id number] Ambulatory [facility]MS[facility]:B [place] 8 7 [place] Repository 01/30/2018 [id number] Ambulatory [place] 0 [facility] ing:RAD Repository 01/30/2018/ [id number] Ambulatory BMS[facility]:B [place] 8 0 [place] Repository 01/28/2018/ [id number] Ambulatory BMSBuilding:B [place] 8 5 [place] Repository 11/13/2017 [id number] Ambulatory Johny [place] 1 [facility] ing:LAB Repository 10/31/2017 [id number] Ambulatory Johny John[facility] 7 [facility] ing:EMPH Repository 10/30/2017 [id number] Ambulatory Johny [place] 4 [facility] ing:MTRAD Repository 09/13/2017 [id number] Ambulatory [place] [facility] 5 [facility] ing:MTLAB Repository 09/06/2017/ [id number] Ambulatory BMSBuilding:B [place] 8 9 [place] Repository 06/19/2017/ [id number] Ambulatory BMSBuilding:B [place] 8 7 [place] Repository 06/06/2017/ [id number] Ambulatory Jhony [place] 8 7 [facility] ing:SDC Repository 06/06/2017 [id number] Ambulatory BMSBuilding:B [place] 2 [place] Repository 06/06/2017 [id number] Ambulatory BMSBuilding:B [place] 7 [facility] Repository 06/01/2017/ [id number] Ambulatory BMSBuilding:B [place] 8 9 [place] Repository 04/12/2017 [id number] Ambulatory [place] 3 [facility] ing:MTLAB Repository 04/09/2017/ [id number] Ambulatory [place] 8 7 [facility] ing:[facility] Repository PAYERS PAYERS ENCOUNTER GUARANTOR PAYER SUBSCRIBER SOURCE 03/11/2018 LAUREN MALDONADO1684 Primary Insurance:[employer] LAUREN Mcclain [facility]: [address] [id number] [address]Dzt: (330) Number: Repository [phone] HP) [id number] Date:1485-56-27[address] [address], [place] [address]ND: CHECK WEBSITE 03/11/2018 Secondary NOT GIVENUNK [place] Insurance:SELF PAY [facility] Number: Effective Repository Date:2017-09-06 03/08/2018 LAUREN MALDONADO1684 Primary Insurance:[employer] [facility]EN [facility] THOMASDOB: [address] [id number] Hospital [address]Iwx: (330) Number: Repository [phone] () [id number] Date:3979-42-42[address] [address], [place] [address]QJ: CHECK WEBSITE 03/08/2018 Secondary NOT GIVENUNK [place] Insurance:SELF PAY [facility] Number: Effective Repository Date:2018-03-08 03/05/2018 LAUREN MALDONADO1684 Primary Insurance:[employer] [facility]EN Mcclain [facility] [address], [place] SERVICESPolicy [id number] Hospital [address]Xzn: (330) Number: Repository [phone] () [id number] Date:7682-00-37[address] [address]JY[place], [place] [address]DK: CHECK WEBSITE 03/05/2018 Secondary NOT GIVENUNK [place] Insurance:SELF PAY [facility] Number: Effective Repository Date:2017-09-06 01/30/2018 LAUREN MALDONADO1684 Primary Insurance:[employer] [facility]UREN Mcclain [facility] Community [address] [place] [address] SERVICESPolicy [id number] Hospital [address]Gtc: (330) Number: Repository [phone] () [id number] Date:0856-89-48OD [address] [address]OWIGCJMGU, [place] [address]RJ: CHECK WEBSITE 01/30/2018 Secondary NOT GIVENUNK [place] Insurance:SELF PAY [facility] Number: Effective Repository Date:2018-01-30 01/30/2018 LAUREN [id number] Primary Insurance:[employer] LAUREN Mcclain [facility]: [place] [address] SERVICESPolicy [id number] Hospital [address]Has: (330) Number: Repository [phone] () [id number] Date:3315-06-37[address] [address]NSWWQQCCW, [place] [address]AY: CHECK WEBSITE 01/30/2018 Secondary NOT GIVENUNK [place] Insurance:SELF PAY [facility] Number: Effective Repository Date:2018-01-30 01/30/2018 LAUREN [id number] Primary Insurance:[employer] LAUREN [facility] [id number] Hospital [address]Mlo: (330) Number: Repository [phone] () [id number] Date:3701-73-52HS [address] [address], [place] [address]HV: CHECK WEBSITE 01/30/2018 Secondary NOT GIVENUNK [place] Insurance:SELF PAY [facility] Number: Effective Repository Date:2018-01-30 01/28/2018 LAUREN MALDONADO1684 Primary Insurance:[employer] LAUREN [facility] [address] [id number] Hospital [address]Jyf: (330) Number: Repository [phone] () [id number] Date:8767-36-00CJ [facility] [address]NF[place]X, [place] [address]FR: CHECK WEBSITE 01/28/2018 Secondary NOT GIVENUNK [place] Insurance:SELF PAY [facility] Number: Effective Repository Date:2018-01-28 11/13/2017 LAUREN [place] [id number] Primary Insurance:[employer] LAUREN [facility]: [facility] [address] [id number] Hospital [address]Vrf: (330) Number: Repository [phone] () [id number] Date:0048-68-80EC [facility] [address]FX, [place] [address]QQ: CHECK WEBSITE 11/13/2017 Secondary NOT GIVENUNK [place] Insurance:SELF PAY [facility] Number: Effective Repository Date:2017-11-13 10/31/2017 LAUREN Alston [id number] Primary NOT GIVENUNK [place] [facility]HA [facility] Insurance:SELF PAY [address] [address]Yuu: (330) Number: Effective Repository [phone] () Date:2017-10-31 10/30/2017 LAUREN Alston [id number] Primary Insurance:[employer] LAUREN [facility]: [facility] [address] SERVICESPolicy [id number] Hospital [address]Tew: (330) Number: Repository [phone] () [id number] Date:4985-76-25SU [address] [address]ZLAFDREB, [place] [address]BC: CHECK WEBSITE 10/30/2017 Secondary NOT GIVENUNK [place] Insurance:SELF PAY [facility] Number: Effective Repository Date:2017-10-30 09/13/2017 LAUREN [id number] Primary Insurance:[employer] LAUREN [place]ston [place] [facility]: [facility] [place] SERVICESPolicy [id number] Hospital [address]Xal: ([phone]) Number: Repository [phone] () [id number] Date:[id number] [address] [address], [place] [address]OE: CHECK WEBSITE 09/13/2017 Secondary NOT GIVENUNK [place] Insurance:SELF PAY [facility] Number: Effective Repository Date:2017-09-13 09/06/2017 LAUREN MALDONADO1684 Primary Insurance:[employer] LAUREN Mcclain [facility] [place] SERVICESPolicy [id number] [facility] [address]Jhs: (330) Number: Repository [phone] () [id number] Date:6208-31-73RE [address] [address], [place] [address]IA: CHECK WEBSITE 09/06/2017 Secondary NOT GIVENUNK [place] Insurance:SELF PAY [facility] Number: Effective Repository Date:2017-08-30 06/19/2017 LAUREN [id number] Primary NOT GIVENUNK [place] [facility] Insurance:SELF PAY [facility] [address] [address]Ldz: (330) Number: Effective Repository [phone] () Date:2017-06-19 06/06/2017 LAUREN [id number] Primary Insurance:[employer] LAUREN Mcclain [facility] [place] SERVICESPolicy [id number] Hospital [address]Dkh: (330) Number: Repository [phone] () [id number] Date:1454-92-23PZ [address] [address], [place] [address]IJ: CHECK WEBSITE 06/06/2017 Secondary NOT GIVENUNK [place] Insurance:SELF PAY [facility] Effective Rep[facility] Date:2017-06-04 06/06/2017 LAUREN [id number] Primary LAUREN Alston [place] [facility] Insurance:MEDICAL THOMASDOB: Community [address] [place] [address] [id number] Hospital [address]Blb: (330) Number: Repository [phone] () [id number] Date:5777-83-30LS [facility] [place], [place] [address]BN: 06/06/2017 Secondary NOT GIVENUNK [place] Insurance:SELF PAY [facility] Number: Effective Repository Date:2017-06-06 06/06/2017 LAUREN MALDONADO1684 Primary Insurance:[employer] [facility] THOMASDOB: [address] [id number] Hospital [address]Cps: (330) Number: Repository [phone] () [id number] Date:5872-04-30ZY [facility] [address], [place] [address]QE: CHECK WEBSITE 06/06/2017 Secondary NOT GIVENUNK [place] Insurance:SELF PAY [facility] Number: Effective Repository Date:2017-06-06 06/01/2017 LAUREN MALDONADO1684 Primary Insurance:[employer] LAUREN Mcclain [facility] THOMASDOB: Community [address] [place] [address] [id number] Hospital [address]Ehw: (330) Number: Repository [phone] () [id number] Date:[id number] [address] [address]AP[place], [place] [address]TD: CHECK WEBSITE 06/01/2017 Secondary NOT GIVENUNK [place] Insurance:SELF PAY [facility] Number: Effective Repository Date:2017-06-01 04/12/2017 LAUREN [id number] Primary Insurance:[facility] LAUREN Mcclain [facility]DOB: [address] [id number] [id number]: (330) Number: Repository [phone] () [id number] Date:8240-67-06DI [address] [address], [place] [address]OW: CHECK WEBSITE 04/12/2017 Secondary NOT GIVENUNK [place] Insurance:SELF PAY [facility] Number: Effective Repository Date:2017-04-12 04/09/2017 LAUREN [id number] Primary Insurance:[facility] Alecia [place] [facility]: [address] [id number] Hospital [address]Jgo: (330) Number: Repository [phone] () [id number] Date:0692-30-78BY [address] [address], [place] [address]AH: CHECK WEBSITE 04/09/2017 Secondary NOT GIVENUNK [place] Insurance:SELF PAY [facility] Number: Effective Repository Date:2017-04-04
== END ==
PROVIDERS: Family Provider Family Medicine Geriatric Medicine; PCP Family Medicine Geriatric Medicine; Referring Provider Physician Assistant; Visit Provider Physician Assistant
DX: R05 Cough (principal); M05.79 Rheumatoid arthritis with rheumatoid factor of multiple sites without organ or systems involvement; J40 Bronchitis, not specified as acute or chronic
CPT/HCPCS: 36415; 71046; 80053; 85025; 85652; 87633; 87804

== ENCOUNTER → 2018-03-05 07:14 | Outpatient (CLI) | payer OTHER, SELFPAY ==
[2018-01-30 08:32] VITALS: BMI 38.2
--- NOTE | 2018-03-05 14:22 | PFT ---
INTRODUCTION: The patient is a 58-year-old female that presents for pulmonary function studies secondary to a diagnosis of COPD. Respiratory therapy reports good patient effort. Bronchodilators were used during testing. INTERPRETATION: Forced expiration spirometry demonstrates the presence of a moderately severe large airways obstructive ventilatory defect. There was a significant response to aerosolized bronchodilators noted. Spirograms are of good quality and do not plateau indicating slow emptying of the lungs. Body plethysmography was performed and revealed an elevated TLC and RV, indicative of underlying hyperinflation and air-trapping. Diffusing capacity by single breath CO is relatively preserved at 82% of predicted. When compared to previous pulmonary function studies dated November 2016 there has been an 11% reduction in FEV1 along with increased TLC and RV. IMPRESSION: These pulmonary function studies demonstrate the presence of a partially reversible moderately severe large airways obstructive ventilatory defect with associated hyperinflation and air-trapping. There has been worsening in the patient's pulmonary function study since they were last completed in 2016, as noted above.
--- NOTE | 2018-03-05 14:27 | PFT_ITS ---
INTRODUCTION: The patient is a 58-year-old female that presents for pulmonary function studies secondary to a diagnosis of COPD. Respiratory therapy reports good patient effort. Bronchodilators were used during testing. INTERPRETATION: Forced expiration spirometry demonstrates the presence of a moderately severe large airways obstructive ventilatory defect. There was a significant response to aerosolized bronchodilators noted. Spirograms are of good quality and do not plateau indicating slow emptying of the lungs. Body plethysmography was performed and revealed an elevated TLC and RV, indicative of underlying hyperinflation and air-trapping. Diffusing capacity by single breath CO is relatively preserved at 82% of predicted. When compared to previous pulmonary function studies dated November 2016 there has been an 11% reduction in FEV1 along with increased TLC and RV. IMPRESSION: These pulmonary function studies demonstrate the presence of a partially r eversible moderately severe large airways obstructive ventilatory defect with associated hyperinflation and air-trapping. There has been worsening in the patient's pulmonary function study since they were last completed in 2016, as noted above.
== END ==
PROVIDERS: Family Provider Family Medicine Geriatric Medicine; PCP Family Medicine Geriatric Medicine; Referring Provider Nurse Practitioner Acute Care; Visit Provider Nurse Practitioner Acute Care
DX: J44.9 Chronic obstructive pulmonary disease, unspecified (principal)
CPT/HCPCS: 94060; 94726; 94729

== ENCOUNTER → 2018-03-08 12:14 | Outpatient (CLI) | payer OTHER, SELFPAY ==
[2018-01-30 08:32] VITALS: BMI 38.2
--- OUTSIDE RECORDS SUMMARY | 2018-05-13 01:32 | XMS RPT_ITS ---
:1960 Author Organization OHIP Support Name Relationship Address Phone YEHUDA MALDONADO Unavailable Unavailable + [facility] Unavailable [address] + [place] [address] JOELYEHUDA Unavailable Unavailable + [facility] Unavailable [address] + [place] [address] JOELALEJANDRAIE Unavailable Unavailable + [facility] Unavailable [address] + [place] [address] JOEL YEHUDA Unavailable [address] + [address] [place] [address] [facility] Unavailable [address] + [place] [address] JOEL YEHUDA Unavailable . + [place] [address] [facility] Unavailable [address] + [place] [address] JOELALEJANDRAIE Unavailable Unavailable + [facility] Unavailable [address] + [place] [address] + [place] [address] [facility] Unavailable [address] + [place] [address] [address] + [place] [address] [facility] Unavailable [address] + [place] [address] [address] MAL[address]O [address] + [place] [address] [facility] Unavailable [address] + [place] [address] YEHUDA MALDONADO [address] + [place] [address] [facility] Unavailable [address] + [place] [address] YEHUDA MALDONADO [address] + [place] [address] [facility] Unavailable [address] + [place] [address] YEHUDA MALDONADO Un[address] + [place] [address] [facility] Unavailable [address] + [place] [address] YEHUDA MALDONADO [address] + [place] [address] [facility] Unavailable [address] + [place] [address] YEHUDA MALDONADO Un[address] + [place] [address] [facility] Unavailable [address] + [place] [address] YEHUDA MALDONADO [address] + [place] [address] [facility] Unavailable [address] + [place] [address] YEHUDA MALDONADO [address] + [place] [address] [facility] Unavailable [address] + [place] [address] YEHUDA MALDONADO Unavailable [address] + [place] [address] [facility] Unavailable [address] + [place] [address] YEHUDA MALDONADO Unavailable [address] + [place] [address] [facility] Unavailable [address] + [place] [address] YEHUDA MALDONADO Unavailable [address] + [place] [address] [facility] Unavailable [address] + [place] [address] YEHUDA MALDONADO [address] + [place] [address] [facility] Unavailable [address] + [place] [address] Care Team Providers Name Role Phone Juan [...] Unavailable Blair, Leon Chi Primary Care Unavailable Isaias Leon D.O. Attending Unavailable Foster, Delisa Referring Unavailable Rj Bravo Attending Unavailable Rj Bravo Referring Unavailable Blair, Leon Chi Primary Care Unavailable STARLA SHARMA Attending Unavailable Blair, Leon Chi Primary Care Unavailable Jojo Santana Attending Unavailable Blair, Leon Chi Referring Unavailable Blair, Leon Chi Primary Care Unavailable Chicorelli, Jojo Attending Unavailable Chicorelli, Jojo Referring Unavailable Blair, Leon Chi Primary Care Unavailable ChicorelliJojo Attending Unavailable Chicorelli, Jojo Referring Unavailable Blair, Leon Chi Primary Care Unavailable Chicorelli, Jojo Consulting Unavailable Chicorelli, Jojo Attending Unavailable Blair, Leon Chi Referring Unavailable Blair, Leon Chi Primary Care Unavailable ChicorelliJojo Attending Unavailable FosterDelisa Attending Unavailable Blair, Leon Chi Referring Unavailable STARLA SHARMA Referring Unavailable Blair, Leon Chi Primary Care Unavailable STARLA SHARMA Attending Unavailable Fascione, Mary Attending Unavailable Fascione, Mary Referring Unavailable Blair, Leon Chi Primary Care Unavailable ASSESSMENT, HEALTH RISK Attending Unavailable ASSESSMENT, HEALTH RISK Referring Unavailable Blair, Leon Chi Primary Care Unavailable STARLA SHARMA Attending Unavailable STARLA SHARMA Referring Unavailable Blair, Leon Chi Primary Care Unavailable Juan Jose Lagunas Attending Unavailable Blair, Leon Chi Referring Unavailable PROBLEMS PROBLEMS DATE TYPE CONDITION / CODE ATTENDING STATUS SOURCE 03/15/2018 Unknown J44.9 - Chronic Isaias Leon, Active [place] obstructive D.O. [facility] pulmonary [facility] disease, Repository unspecified / J44.9(ICD-10) 01/30/2018 Unknown J40 - Bronchitis, Foster, Active [place] not specified as [facility] acute or chronic Hospital / J40(ICD-10) Repository 02/28/2018 Unknown R05 - Cough / Juan Jose Lagunas Active [place] R05(ICD-10) [facility] Repository 11/13/2017 Unknown M05.79 - STARLA SHARMA Active [place] Rheumatoid [facility] arthritis with Hospital rheumatoid factor Repository of multiple sites without organ or systems involvement / M05.79(ICD-10) 06/29/2017 Unknown M65.331 - Trigger Chicorelli, Active [place] finger, right [facility] middle finger / Hospital M65.331(ICD-10) Repository PROCEDURES PROCEDURES No Procedure Records FoundRESULTS RESULTS 6 MINUTE WALK TEST Observed: 03/12/2018 Status: F Source: [place] 5:57 AM [facility] REPOSITORY [facility] Pulmonary Services/Neurology [address] [place] [address] MR#: [id number] Acct: [id number] Name: LAUREN MALDONADO Rep #: [id number] : 1960 58 From: Semaj Joseph MD Referring Dr: Delisa Foster LAYOUT MECHANIC Date: Ordering Dr: Sex: F C Location: PSN PSN 6 Minute Walk Test - 6 Minute Walk Test 6 Minute Walk Test: 6 Minute Walk Test PSN:6-Minute Walk Test Start: 03/11/18 09:18 Freq: Status: Active Protocol: RESP.6MINW Document 03/11/18 09:18 [facility] (Rec: 03/11/18 09:30 [facility] [id number]) 6 Minute Walk Test Date Performed 03/11/18 [...] Dictated: 03/11/18 1126 Date Transcribed: 03/11/18 1126 Building Construction Engineer: Semaj Joseph MD Signed Observed: 03/08/2018 Status: F Source: [place] RESPIRATORY PANEL 12:30 PM [facility] MOLECULAR REPOSITORY RP PANEL ADENOVIRUS Not Detected [...] acid amplification Performed By: #### M100.638 #### [facility] [address], [address] PULMONARY FUNCTION Observed: 03/05/2018 Status: F Source: [place] TEST 2:27 PM [facility] REPOSITORY [facility] Pulmonary Services/Neurology [address] [place] [address] MR#: [id number] Acct: [id number] Name: LAUREN MALDONADO Rep #: [id number] : 1960 58 From: Isaias Leon DO Referring Dr: Delisa Foster NP Status: REG CLI Ordering Dr: Date: Location: [facility] Sex: F C INTRODUCTION: The patient is [...] DO> Date Isaias Leon DO CC: Delisa Pinto MD Date Dictated: 03/05/181421 Date Transcribed: 03/05/181421 Building Construction Engineer: CHRISTIANA Signed URGENT CARE VISIT Observed: 02/25/2018 Status: F Source: [place] REPORT 10:07 AM [facility] REPOSITORY [facility] [address] [place] [address] OFFICE VISIT Date of Service: 01/28/18 MR#: [id number] Acct: [id number] Name: LAUREN MALDONADO Rep #: [id number] : 1960 Provider: Juan Jose CARABALLO Age/Sex: 57/F Location: [facility] Status: Signed with Addenda ADDENDUM by Juan [...] the above. This note was generated with Guidecentral dictation software. It may contain incorrect words, spelling, and punctuation that were not noted in checking the note before signing. Medications New: 02/25/18 1007 <Electronically signed by Juan Jose CARABALLO> Date Juan Jose Lagunas cc: * Signed Intake Vital Signs01/28/18 Height 5 ft 6 in Intake Visit Reasons: UPPER RESP INFECTION Chief Complaint: Cough Transmission Inspector Required: No Accompanied by: Self Is patient [...] medication list. Medications verbally confirmed by patient. [facility] Medical History Depression (Chronic) Limb weakness (Chronic) [...] members and also with similar complaints. No eegm-lpl-dsmlgyb products have been tried to assist with [...] the above. This note was generated with Guidecentral dictation software. It may contain incorrect words, spelling, and punctuation that were not noted in checking the note before signing. Medications New: Coding Level of Care Code Off vis,est,level 3 01/28/18 0953 <Electronically signed by Juan Jose CARABALLO> Date Juan Jose CARABALLO Cosigner Signature: Date (if applicable) CC: PULMONARY VISIT REPORT Observed: 01/30/2018 Status: F Source: [place] 9:49 AM [facility] REPOSITORY [facility] [place] [address] [place] [address] OFFICE VISIT Date of Service: 01/30/18 MR#: [id number] Acct: [id number] Name: LAUREN MALDONADO Rep #: [id number] : 1960 Provider: Delisa Foster Age/Sex: 57/F Location: [facility] Status: Signed Assessment AND Plan Problems 1. [...] partial relief. She has not added any qfog-khw-ifmnbxe medications to treat her symptoms. Intake Vital [...] congruent mood Affect: Positive normal affect Office Meds [place] Performing Provider: VALERIE Garnica Administered by: Mehreen Juarez on 01/30/18 09:01 Dose Route Admin Location Lot Number Expiration Date NDC Security Manager 60 mg IM Lt gluteal [id number] 04/20/19 1693-8816-08 [employer] Coding Level of Care Code Off vis,est,level 4 Diagnoses 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 classification J44.9 01/30/18 0949 <Electronically signed by Delisa PADILLA> Date Delisa PADILLA Cosigner Signature: Date (if applicable) CC: Leon Pinto MD Observed: 01/30/2018 Status: F Source: [place] INFLUENZA A+B (RAPID 9:44 AM [facility]IL[facility]) REPOSITORY FLU A/B Rapid Negative test results should be confirmed by culture. Order Rapid Viral Culture for Influenzae A+B ([id number]) if clinically indicated. Influenza Ag, Direct Presumptive NEGATIVE for Influenza A/B Antigen (See Note) Performed By: #### M101.0101, M100.638 #### [facility] [address] [place], [address] Observed: 01/30/2018 Status: F Source: [place] RESPIRATORY PANEL 9:44 AM [facility] MOLECULAR REPOSITORY RP PANEL Normal Reference Range [...] amplification Performed By: #### M101.0101, M100.638 #### [facility] [address] [place], [address] ERYTHROCYTE SED RATE Collected: 01/30/2018 Status: F Source: [place] 9:13 AM [facility] REPOSITORY TYPE CODE TESTS RESULT OUT OF RANGE REFERENCE UNITS LAB L102.0000 0-30 mm/hr Normal SED RATE 12 Performed By: #### L101.9900, L100.0100 #### [facility] [address] [facility] [place], [address] CBC W/DIFF, AUTOMATED Collected: 01/30/2018 Status: F Source: [place] 9:13 AM [facility] REPOSITORY TYPE CODE TESTS RESULT OUT OF [...] 1.69 Performed By: #### L101.9900, L100.0100 #### [facility] [address], [address] COMPREHENSIVE METABOLIC Collected: 01/30/2018 Status: F Source: [facility] 9:13 AM [facility] REPOSITORY TYPE CODE TESTS RESULT OUT OF [...] GAP 9 Performed By: #### L500.4050 #### [facility] [address] [place], [place], [address] URGENT CARE VISIT Observed: 01/30/2018 Status: F Source: [place] REPORT 9:00 AM [facility] REPOSITORY [facility] [address] [place] [address] [address] [place], [place] [address] OFFICE VISIT Date of Service: 01/30/18 MR#: [id number] Acct: [id number] Name: LAUREN MALDONADO Rep #: [id number] : 1960 Provider: Juan Jose CARABALLO Age/Sex: 57/F Location: [facility] Status: Signed Intake Vital Signs01/30/18 Body Mass Index (BMI) 38.2 01/30/18 Height 5 ft 6 in Intake Visit Reasons: CHEST CONGESTION Chief Complaint: Cough Transmission Inspector Required: No Accompanied by: self Is patient [...] the above. This note was generated with mSpotation software. It may contain incorrect words, spelling, and punctuation that were not noted in checking the note before signing. Orders Orders: Coding Level of Care Code Off vis,est,level 4 Diagnoses Acute maxillary sinusitis J01.00 Bronchitis J40 01/30/18 0900 <Electronically signed by Juan Jose CARABALLO> Date Juan Jose CARABALLO Cosigner Signature: Date (if applicable) CC: CHEST PA AND LATERAL Observed: 01/30/2018 Status: F Source: [place] 7:57 AM [facility] REPOSITORY [facility] Imaging Services [address] [place] [address] Chest PA and Lateral MR#: [id number] Acct: [id number] Name: LAUREN MALDONADO Rep #: [id number] : 1960 F 57 From: Beny Schwab MD PCP: Blair MARTIN,Leon [facility] Status: REG CLI Study: Chest PA and Lateral Date of Exam: 01/30/18 Exam# [id number] Ordering Dr: Juan Jose Lagunas STUDY: X-RAY [...] Beny Schwab MD at 8:47 EST Tel [phone], Service support , CC: Juan Jose CARABALLO; Leon Pinto MD Building Construction Engineer: Signed HEPATITIS B SURFACE Collected: 11/13/2017 Status: F Source: [place] AG 4:42 PM [facility] REPOSITORY TYPE CODE TESTS RESULT OUT OF RANGE REFERENCE UNITS LAB L3100.0400 Negative Normal HB Negative SURF AG Performed By: #### L3100.0390, L3100.0440, L3400.7000 #### [facility] (refer to report for specific site) refer to report for address and phone number HEPATITIS B CORE AB Collected: 11/13/2017 Status: F Source: [place] IGM 4:42 PM [facility] REPOSITORY TYPE CODE TESTS RESULT OUT OF RANGE REFERENCE UNITS LAB L3100.0440 Negative Normal HB Negative CORE [id number] Result Comment: Performed at: - [facility] [address] [id number] Improvement Intern: Doc Rizzo PhD, Phone: [phone] Performed By: #### L3100.0390, L3100.0440, L3400.7000 #### [facility] (refer to report for specific site) refer to report for address and phone number QUANTIFERON TB-GOLD Collected: 11/13/2017 Status: F Source: [place] 4:42 PM [facility] REPOSITORY TYPE CODE TESTS RESULT OUT OF [...] to cdc.gov/tb for further details. Effective fall, [facility] number [id number] QuantiFERON Client Incubated with three tube collection kit will be made non-orderable following depletion of collection and testing kits. *[employer] offers [id number] QuantiFERON-TB Plus (Client Incubated)* with four tube collection kit. Performed By: #### L3100.0390, L3100.0440, L3400.7000 #### [facility] (refer to report for specific site) refer to report for address and phone number CBC, EMPLOYEE Collected: 10/31/2017 Status: F Source: [place] 9:26 AM [facility] REPOSITORY TYPE CODE TESTS RESULT OUT OF [...] Lymph 2.02 Performed By: #### L100.0200 #### [facility] [place] [place], [address] URINALYSIS, EMPLOYEE Collected: 10/31/2017 Status: F Source: [place] 9:26 AM [facility] REPOSITORY TYPE CODE TESTS RESULT OUT OF [...] 25 ESTERASE Performed By: #### L400.0100 #### [facility] [address] [place], [place], [address] EMPLOYEE PROFILE Collected: 10/31/2017 Status: F Source: [place] 9:26 AM [facility] REPOSITORY TYPE CODE TESTS RESULT OUT OF [...] LDH 203 Performed By: #### L500.2900 #### [facility] [address] [place], [address] NICOTINE URINE DRUG Collected: 10/31/2017 Status: F Source: [place] SCREEN 9:26 AM [facility] TYPE CODE TESTS RESULT OUT OF [...] of Nicotine. Performed By: #### L505.6240 #### [facility] [address] [facility] [place], [address] FOOT MIN 3 VIEWS Observed: 10/30/2017 Status: F Source: [place] 10:04 AM [facility] REPOSITORY [facility] Imaging Services [address] [place] [address] Foot min 3 Views MR#: [id number] Acct: [id number] Name: LAUREN MALDONADO Rep #: [id number] : 1960 F 57 From: Shelly Dumont MD PCP: Leon Pinto MD, Chi Status: REG CLI Study: Foot min 3 Views Date of Exam: 10/30/17 Exam# [id number] Ordering Dr: Mary Ramirez DPM STUDY: X-RAY [...] CC: Mary Ramirez DPM; Leon Pinto MD Building Construction Engineer: Signed ERYTHROCYTE SED RATE Collected: 09/13/2017 Status: F Source: [place] 12:48 PM [facility] REPOSITORY TYPE CODE TESTS RESULT OUT OF RANGE REFERENCE UNITS LAB L102.0000 0-30 mm/hr Normal SED RATE 17 Performed By: #### L101.9900, L100.0500 #### [facility] [address] [place], [place], [address] CBC-COMPLETE BLOOD CNT Collected: 09/13/2017 Status: F Source: [place] NO DIFF 12:48 PM [facility] REPOSITORY TYPE CODE TESTS RESULT OUT OF [...] 8.8 Performed By: #### L101.9900, L100.0500 #### [facility] [address] [place], [address] COMPREHENSIVE METABOLIC Collected: 09/13/2017 Status: F [facility] 12:48 PM [facility] REPOSITORY TYPE CODE TESTS RESULT OUT OF [...] 5 Performed By: #### L500.4050, L501.6710 #### [facility] [address] [place], [address] CRP Collected: 09/13/2017 Status: F Source: [place] 12:48 PM [facility] REPOSITORY TYPE CODE TESTS RESULT OUT OF RANGE REFERENCE UNITS LAB L501.6710 0.0-3.0 mg/L High 8.02 C-REACTIVE PROT Result Comment: C-Reactive Protein (CRP) provides useful information for the diagnosis, therapy and monitoring of inflammatory processes and associated diseases. For the evaluation of Relative Risk for Cardiovascular Disease, a High Sensitivity CRP (HSCRP) should be ordered. Performed By: #### L500.4050, L501.6710 #### [facility] [address] [place], [place], [address] PULMONARY VISIT REPORT Observed: 09/06/2017 Status: F Source: [place] 9:46 AM [facility] REPOSITORY [facility] [place] [address] [place], [place] [address] OFFICE VISIT Date of Service: 09/06/17 MR#: [id number] Acct: [id number] Name: LAUREN MALDONADO Rep #: [id number] : 1960 Provider: Delisa Foster Age/Sex: 57/F Location[place] [facility] Status: Signed Assessment AND Plan 1. TAMRA [...] and nicotine patches. Lengthy discussion, 7 minutes [id number]-jh-[id number], regarding smoking cessation. The patient reports that she will try using suckers and cold turkey, with hopes to be smoke free when she sees Dr. Joseph in 6 months. Plan Detail Follow Up 6 Months ([facility]) HPI HPI Comments Details: This is a 57 year old f, currently under the care of Dr. Pinto of [facility], here to follow up for sleep apnea, [...] lb Intake Visit Reasons: 6 M [facility]U [facility] Vendor: Emilie Accompanied by: Self Is patient in pain?: [...] puff INHALATION QDAY #1 ea 06/29/17 [Rx] [facility] Medical History Depression (Chronic) Limb weakness (Chronic) [...] Codes Time Spent - 3-10 minutes: Yes ([id number]) 09/06/17 0946 <Electronically signed by Delisa PADILLA> Date Delisa PADILLA Cosigner Signature: Date (if applicable) CC: Leon Pinto MD ORTHOPEDIC VISIT Observed: 06/21/2017 Status: F Source: [place] REPORT 4:43 PM [facility] REPOSITORY [facility] Orthopaedics AND Sports Medicine [address] [place] [address] OFFICE VISIT Date of Service: 06/19/17 MR#: [id number] Acct: [id number] Name: LAUREN MALDONADO Rep #: [id number] : 1960 Provider: Jojo Santana DO Age/Sex: 57/F [place] [facility] [place] [place]: Signed Intake Intake Visit Reasons: right [...] of Care Code Global Post Op 06/21/17 1643 <Electronically signed by Jojo Santana DO> Date Jojo Santana DO Cosigner Signature: Date (if applicable) CC: OPERATIVE REPORT Observed: 06/06/2017 Status: F Source: [place] 11:36 AM [facility] REPOSITORY [facility] Medical Records Department [address] [place] [address] Operative Report 06/06/17 1117 MR#: [id number] Acct: [id number] Name: LAUREN MALDONADO Rep #: [id number] : 1960 57 From: Jojo Santana DO PCP: Blair MARTIN,Leon Jacome Status: REG [facility] [place] Location: [place] [address] Report of Operation Date of Procedure: 06/06/17 Pre-Operative Diagnosis: right middle finger trigger finger Post-Operative Diagnosis: same Surgery/Procedure Performed:: right middle finger A1 hiram release Type of Anesthesia:: Block,Camak Anesthesiologist: Luis Enrique Ramirez Drains: tt-8 mins [...] was prepped in usual sterile fashion after Camak block was initiated. We then marked out [...] issues arise This note was generated with mSpotation software. It may contain incorrect words, spelling, and punctuation that were not noted in checking the note before signing. 06/06/17 1136 <Electronically signed by Jojo Santana DO> Date Jojo Santana DO CC: oJjo Santana DO; Leon Pinto MD Signed DISCHARGE INSTRUCTION Observed: 06/06/2017 Status: F Source: [place] 11:17 AM [facility] REPOSITORY [facility] Medical Records Department [address] [place] [address] Instructions for Home/Discharge Instructions 06/06/17 1116 MR#: [id number] Acct: [id number] Name: LAUREN MALDONADO Rep #: [id number] : 1960 57 From: Jojo Santana DO PCP: Blair MARTIN,Leon Jacome Status: REG [facility] Discharge Diet: No Restrictions - keep dressing [...] Follow Up With: Jojo Santana DO - [phone] 06/06/17 1117 <Electronically signed by Jojo Santana DO> Date Jojo Santana DO CC: Leon Pinto MD ORTHOPEDIC VISIT Observed: 06/01/2017 Status: F Source: [place] REPORT 11:50 AM [facility] REPOSITORY [facility] Orthopaedics AND Sports Medicine [address] [place] [address] OFFICE VISIT Date of Service: 06/01/17 MR#: [id number] Acct: [id number] Name: LAUREN MALDONADO Rep #: [id number] : 1960 Provider: Jojo Santana DO Age/Sex: 57/F Location: [facility] Status: Signed Intake Intake Visit Reasons: RIGHT [...] mg PO QWEEK 04/09/17 [History Confirmed 06/01/17] [facility] Medical History Depression (Chronic) Limb weakness (Chronic) [...] whether or not another injection is warranted. ROS Const Reports system reviewed and no [...] signed by Jojo Santana DO> Date Jojo Nichols Signature: Date (if applicable) CC: CBC W/DIFF, AUTOMATED Collected: 04/12/2017 Status: F Source: [place] 7:20 AM [facility] REPOSITORY TYPE CODE TESTS RESULT OUT OF [...] 2.31 Performed By: #### L100.0100, L101.9900 #### [facility] [address] [place], [address] ERYTHROCYTE SED RATE Collected: 04/12/2017 Status: F Source: [place] 7:20 AM [facility] REPOSITORY TYPE CODE TESTS RESULT OUT OF RANGE REFERENCE UNITS LAB L102.0000 0-30 mm/hr Normal SED RATE 15 Performed By: #### L100.0100, L101.9900 #### [facility] [address] [place], [address] COMPREHENSIVE METABOLIC Collected: 04/12/2017 Status: F Source: [facility] 7:20 AM [facility] REPOSITORY TYPE CODE TESTS RESULT OUT OF [...] 8 Performed By: #### L500.4050, L501.6710 #### [facility] [address] [place], [address] CRP Collected: 04/12/2017 Status: F Source: [place] 7:20 AM [facility] REPOSITORY TYPE CODE TESTS RESULT OUT OF RANGE REFERENCE UNITS LAB L501.6710 0.0-3.0 mg/L Normal < 2.90 C-REACTIVE PROT Result Comment: C-Reactive Protein (CRP) provides useful information for the diagnosis, therapy and monitoring of inflammatory processes and associated diseases. For the evaluation of Relative Risk for Cardiovascular Disease, a High Sensitivity CRP (HSCRP) should be ordered. Performed By: #### L500.4050, L501.6710 #### [facility] [address] [facility] [place], [address] OPERATIVE REPORT Observed: 04/09/2017 Status: F Source: [place] 4:14 PM [facility] REPOSITORY [facility] Medical Records Department [address] [place] [address] Operative Report 04/09/17 1610 MR#: [id number] Acct: [id number] Name: LAUREN MALDONADO Rep #: [id number] : 1960 57 From: Rj Bravo MD PCP: Blair MARTIN,Leon Jacome Status: [facility] Y Location[place] [facility] [place] [facility] [place] Problem List (1) Degeneration of cervical disc [...] OR 3 Observed: 04/09/2017 Status: F Source: [place] VIEWS 12:00 AM [facility] REPOSITORY [facility] Imaging Services [address] [place] [address] Cerv Spine 2 or 3 Views MR#: [id number] Acct: [id number] Name: LAUREN MALDONADO Rep #: [id number] : 1960 F 57 From: Beny Schwab MD PCP: Leon Pinto MD, Chi Status: [facility] Study: Cerv Spine 2 or 3 Views Date of Exam: 04/09/17 Exam# [id number] Ordering Dr: Rj Bravo MD STUDY: X-RAY [...] Beny Schwab MD at 9:30 EST Tel [phone], Service support , CC: Rj Bravo; Leon Pinto MD Building Construction Engineer: Signed ALLERGIES ALLERGIES DATE TYPE / CODE NAME / CODE REACTION SEVERITY SOURCE 01/30/2018 Drug Penicillins/ Rash Unknown [facility] [id number]( [facility] [address](SNOMED XNORM) Repository CT) 01/30/2018 Drug tramadol/F00 FEELING OF Unknown [facility] Allergy/4160 [id number]([place] 0431702(SNOMED RM) Repository CT) 01/30/2018 Drug adalimumab/F Rash Unknown [facility] Allergy/4160 [id number]([place] [address](SNOMED NORM) Repository CT) 02/21/2017 Drug oxybutynin/F Upset Stomach Unknown [facility] Allergy/4160 [id number]([place] [address](SNOMED NORM) Repository CT) ENCOUNTERS ENCOUNTERS ADMIT/DISCHARGE ACCOUNT ADMITTING ENCOUNTER LOCATION SOURCE NUMBER CLASS 03/11/2018 [id number] [place] 1 [facility] ing:PSN Repository 03/08/2018 [id number] Ambulatory [place] 9 [facility] ing:PSN Repository 03/05/2018 [id number] Ambulatory [place] [facility] 3 [facility] ing:PSN Repository 03/05/2018 [id number] Ambulatory BMSBuilding:W [facility] 6 [facility] Repository 01/30/2018/ [id number] Ambulatory BMSBuilding:B [place] 8 7 [facility] Repository 01/30/2018 [id number] Ambulatory [place] 0 [facility] ing:RAD Repository 01/30/2018/ [id number] Ambulatory BMSBuilding:B [place] 8 0 [facility] Hospital Repository 01/28/2018/ [id number] Ambulatory BMSBuilding:B [place] 8 5 [facility] Hospital Repository 11/13/2017 [id number] [place] 1 [facility] Hospital ing:LAB Repository 10/31/2017 [id number] Ambulatory [place] 7 [facility] Hospital ing:EMPH Repository 10/30/2017 [id number] Ambulatory [place] 4 [facility] ing:MTRAD Repository 09/13/2017 [id number] Amb[place] 5 [facility] ing:MTLAB Repository 09/06/2017/ [id number] Ambulatory BMSBuilding:B [place] 8 9 [facility] Repository 06/19/2017/ [id number] Ambulatory BMSBuilding:B [place] 8 7 [facility] Repository 06/06/2017/ [id number] [place] 8 7 [facility] Hospital ing:SDC Repository 06/06/2017 [id number] Ambulatory BMSBuilding:B [place] 2 [facility] Repository 06/06/2017 [id number] Ambulatory BMSBuilding:B [place] 7 [facility] Repository 06/01/2017/ [id number] Ambulatory BMSBuilding:B [place] 8 9 [facility] Repository 04/12/2017 [id number] Ambulatory [place] 3 [facility] Hospital ing:MTLAB Repository 04/09/2017/ [id number] Ambulatory [place] 8 7 [facility] Hospital ing:SDC Repository PAYERS PAYERS ENCOUNTER GUARANTOR PAYER SUBSCRIBER SOURCE 03/11/2018 LAUREN MALDONADO1684 Primary Insurance:[facility] LAUREN GARCIA [facility]: [address] [id number] Hospital [address]Axz: (330) Number: Repository [phone] ) [id number] Date:5675-65-76LE [address] [address], [place] [address]RX: CHECK WEBSITE 03/11/2018 Secondary NOT GIVENUNK [place] Insurance:SELF PAY [facility] Number: Effective Repository Date:2017-09-06 03/08/2018 LAUREN MALDONADO1684 Primary Insurance:[facility] LAUREN [facility]DOB: [address] [facility] [id number] Hospital [address]Jmd: (330) Number: Repository [phone] () [id number] Date:7739-03-13QM [address] [address]GHQFLSZJZ, [place] [address]XF: CHECK WEBSITE 03/08/2018 Secondary NOT GIVENUNK [place] Insurance:SELF PAY [facility] Number: Effective Repository Date:2018-03-08 03/05/2018 LAUREN MALDONADO1684 Primary Insurance:[facility] LAUREN Mcclain [facility]: [address] [facility] [id number] [id number]: (330) Number: Repository [phone] () [id number] Date:2359-84-40MS [address] [address]NJAHYFGOU, [place] [address]FI: CHECK WEBSITE 03/05/2018 Secondary NOT GIVENUNK [place] Insurance:SELF PAY [facility] Number: Effective Repository Date:2017-09-06 03/05/2018 LAUREN MALDONADO1684 Primary Insurance:[facility] LAUREN [facility] SYSTEMDOB: [address] [facility]Polmont[facility] [id number] Hospital [address]Ahy: (330) Number: Repository [phone] () [id number] Date:2093-61-01HI [address] [address]CPHCUCPCG, [place] [address]WE: CHECK WEBSITE 03/05/2018 Secondary NOT GIVENUNK [place] Insurance:SELF PAY [facility] Number: Effective Repository Date:2018-03-05 01/30/2018 LAUREN MALDONADO1684 Primary Insurance:[facility] LAUREN [facility]FA[facility] SYSTEMDOB: [address] SERVICESPolicy [id number] Hospital [address]Oum: (330) Number: Repository [phone] () [id number] Date:8988-23-08AE [address] [address]CKGKWVLMO, [place] [address]LO: CHECK WEBSITE 01/30/2018 Secondary NOT GIVENUNK [place] Insurance:SELF PAY [facility] [place] Number: Effective Repository Date:2018-01-30 01/30/2018 LAUREN MALDONADO1684 Primary Insurance:[facility] LAUREN Mcclain [facility] Community [address] [place] [address] SERVICESPolicy [id number] Hospital [address]Yap: (330) Number: Repository [phone] () [id number] Date:6650-18-04IV [address] [address]MRBUZDFRE, [place] [address]EY: CHECK WEBSITE 01/30/2018 Secondary NOT GIVENUNK [place] Insurance:SELF PAY [facility] [place] Number: Effective Repository Date:2018-01-30 01/30/2018 LAUREN MALDONADO1684 Primary Insurance:[facility] LAUREN Mcclain [facility] Community [address] [place] [address] SERVICESPolicy [id number] Hospital [address]Xky: (330) Number: Repository [phone] () [id number] Date:6359-02-27SL [address] [address]CYFURAGBS, [place] [address]WO: CHECK WEBSITE 01/30/2018 Secondary NOT GIVENUNK [place] Insurance:SELF PAY [facility] Number: Effective Repository Date:2018-01-30 01/28/2018 LAUREN MALDONADO1684 Primary Insurance:[facility] LAUREN Mcclain [facility] Community [address] SERVICESPolicy [id number] Hospital [address]Rdm: (330) Number: Repository [phone] () [id number] Date:9925-50-20RD [address] [address]PLVIJFQYU, [place] [address]AL: CHECK WEBSITE 01/28/2018 Secondary NOT GIVENUNK [place] Insurance:SELF PAY [facility] Number: Effective Repository Date:2018-01-28 11/13/2017 LAUREN MALDONADO1684 Primary Insurance:[facility] LAUREN [facility] SYSTEMDOB: [facility] [id number] Hospital [address]Aog: (330) Number: Repository [phone] () [id number] Date:0785-74-61XI [address] [address]GEQFCJNXG, [place] [address]IC: CHECK WEBSITE 11/13/2017 Secondary NOT GIVENUNK [place] Insurance:SELF PAY [facility] Number: Effective Repository Date:2017-11-13 10/31/2017 LAUREN MALDONADO1684 Primary NOT GIVENUNK [place] [facility] Insurance:SELF PAY [address] [address]Jhx: (330) Number: Effective Repository [phone] () Date:2017-10-31 10/30/2017 LAUREN MALDONADO1684 Primary Insurance:[facility] LA[facility]EN [facility] SYSTEMDOB: [facility] [id number] Hospital [address]Fsk: (330) Number: Repository [phone] () [id number] Date:1669-78-16RS [address] [address]XDJZIAPWB, [place] [address]FJ: CHECK WEBSITE 10/30/2017 Secondary NOT GIVENUNK [place] Insurance:SELF PAY [facility] Number: Effective Repository Date:2017-10-30 09/13/2017 LAUREN MALDONADO1684 Primary Insurance:[facility] LAUREN [facility] SYSTEMDOB: [address] [id number] Hospital [address]Xbb: (330) Number: Repository [phone] () [id number] Date:8491-93-73EP [address] [address]KL[place], [place] [address]QZ: CHECK WEBSITE 09/13/2017 Secondary NOT GIVENUNK [place] Insurance:SELF PAY [facility] Number: Effective Repository Date:2017-09-13 09/06/2017 LAUREN MALDONADO1684 Primary Insurance:[facility] LAUREN [facility] SYSTEMDOB: [address] [id number] Hospital [address]Cfc: (330) Number: Repository [phone] () [id number] Date:4297-73-86TA [address] [address]IOXYQ[place], [place] [address]OK: CHECK WEBSITE 09/06/2017 Secondary NOT GIVENUNK [place] Insurance:SELF PAY [facility] Number: Effective Repository Date:2017-08-30 06/19/2017 LAUREN MALDONADO1684 Primary NOT GIVENUNK [place] [facility] Insurance:SELF PAY [address] [address]Yzh: (330) Number: Effective Repository [phone] () Date:2017-06-19 06/06/2017 LAUREN MALDONADO1684 Primary Insurance:[facility] LAUREN GARCIA [facility]DOB: [address] [id number] Hospital [address]Kdz: (330) Number: Repository [phone] () [id number] Date:2611-78-27VE [address] [address]YPYUNXDQR, [place] [address]WE: CHECK WEBSITE 06/06/2017 Secondary NOT GIVENUNK [place] Insurance:SELF PAY [facility] Number: Effective Repository Date:2017-06-04 06/06/2017 LAUREN MALDONADO1684 Primary LAUREN GARCIA RDLOT Insurance:MEDICAL THOMASDOB: [address] [id number] Hospital [address]Tpe: (330) Number: Repository [phone] () [id number] Date:0096-84-92WE [address] [address]EJ: 06/06/2017 Secondary NOT GIVENUNK [place] Insurance:SELF PAY [facility] Number: Effective Repository Date:2017-06-06 06/06/2017 LAUREN MALDONADO1684 Primary Insurance:[facility] LAUREN GARCIA [facility]DOB: [address] [id number] Hospital [address]Zps: (330) Number: Repository [phone] () [id number] Date:8987-83-03MA [address] [address]JMVAFTYXM, [place] [address]NG: CHECK WEBSITE 06/06/2017 Secondary NOT GIVENUNK [place] Insurance:SELF PAY [facility] [place] Number: Effective Repository Date:2017-06-06 06/01/2017 LAUREN MALDONADO1684 Primary Insurance:[facility] LAUREN Mcclain [facility] [place], [place] SERVICESPolicy [id number] Hospital [address]Yly: (330) Number: Repository [phone] () [id number] Date:2964-12-44IZ [address] [address], [place] [address]UB: CHECK WEBSITE 06/01/2017 Secondary NOT GIVENUNK [place] Insurance:SELF PAY [facility] Number: Effective Repository Date:2017-06-01 04/12/2017 LAUREN MALDONADO1684 Primary Insurance:[facility] LAUREN Mcclain [facility] [place] SERVICESPolic [id number] Hospital [address]Fse: (330) Number: Repository [phone] () [id number] Date:4744-41-43OK [address] [address]AHNSJYZJQ, [place] [address]WO: CHECK WEBSITE 04/12/2017 Secondary NOT GIVENUNK [place] Insurance:SELF PAY [facility] Number: Effective Repository Date:2017-04-12 04/09/2017 LAUREN MALDONADO1684 Primary Insurance:[facility] LAUREN Mcclain [facility] Community [address] [facility]Pol[facility] [id number] Hospital [address]Jjs: (330) Number: Repository [phone] () [id number] Date:7357-88-85OU [address] [address], [place] [address]XJ: CHECK WEBSITE 04/09/2017 Secondary NOT GIVENUNK [place] Insurance:SELF PAY [facility] Number: Effective Repository Date:2017-04-04
== END ==
PROVIDERS: Family Provider Family Medicine Geriatric Medicine; PCP Family Medicine Geriatric Medicine; Referring Provider Family Medicine Geriatric Medicine; Visit Provider Family Medicine Geriatric Medicine
DX: R68.83 Chills (without fever) (principal)
CPT/HCPCS: 87633

== ENCOUNTER → 2018-03-11 08:59 | Outpatient (CLI) | payer OTHER, SELFPAY ==
[2018-01-30 08:32] VITALS: BMI 38.2
[2018-03-11 09:18] VITALS: PULSE 101; PULSE 102; PULSE 104; PULSE 106; PULSE 113; PULSE 85; PULSE 86; PULSE 90; O2SAT 92; O2SAT 93; O2SAT 94; O2SAT 95; O2SAT 96; O2SAT 97; O2SAT 98
--- NOTE | 2018-03-11 11:27 | WT_ITS ---
PSN 6 Minute Walk Test - 6 Minute Walk Test 6 Minute Walk Test: 6 Minute Walk Test PSN:6-Minute Walk Test Start: 03/11/18 09:18 Freq: Status: Active Protocol: [id number].6MINW Document 03/11/18 09:18 [facility] (Rec: 03/11/18 09:30 [facility] [id number]) 6 Minute Walk Test Date Performed 03/11/18 Time Performed 09:00 Height 5 ft 5 in Weight: 107.501 kg Weight in Pounds 237.[address]: Delisa Foster Assistive device used: None Pre-test Oxygen Delivery Method Room Air Pulse Ox (%) 98 Pulse Rate (60-100 beats/min) 86 Dyspnea Andreea Scale (0-10) 0 1st minute Oxygen Delivery Method Room Air Pulse Ox (%) 96 Pulse Rate (60-100 beats/min) 90 Dyspnea Andreea Scale (0-10) 0 2nd minute Oxygen Delivery Method Room Air Pulse Ox (%) 95 Pulse Rate (60-100 beats/min) 101 H Dyspnea Andreea Scale (0-10) 1 3rd minute Oxygen Delivery Method Room Air Pulse Ox (%) 96 Pulse Rate (60-100 beats/min) 102 H Dyspnea Andreea Scale (0-10) 1 4th minute Oxygen Delivery Method Room Air Pulse Ox (%) 94 Pulse Rate (60-100 beats/min) 104 H Dyspnea Andreea Scale (0-10) 2 5th minute Oxygen Delivery Method Room Air Pulse Ox (%) 93 Pulse Rate (60-100 beats/min) 106 H Dyspnea Andreea Scale (0-10) 2 6th minute Oxygen Delivery Method Room Air Pulse Ox (%) 92 Pulse Rate (60-100 beats/min) 113 H Dyspnea Andreea Scale (0-10) 2 Post-test Oxygen Delivery Method Room Air Pulse Ox (%) 97 Pulse Rate (60-100 beats/min) 85 Dyspnea Andreea Scale (0-10) 0 Full Laps Walked 22 Partial Lap, Number of Tiles Walked 17 Total Distance Walked (ft) 1315 - Interpretation Interpretation: The patient was able to ambulate 1315 feet over the course of 6 minutes on room air. The patient did have significant desaturation from a baseline of 98%, to as low as 92%. Peak heart rate noted at 113 bpm. These findings are consistent with a respiratory limitation exercise tolerance. - Recommendations Recommendations: No supplemental oxygen is indicated at this time. However, patient will need to be followed closely given significant level of desaturation.
--- OUTSIDE RECORDS SUMMARY | 2018-05-13 16:15 | XMS RPT_ITS ---
:1960 Author Organization OHIP Support Name Relationship Address Phone YEHUDA MALDONADO Unavailable Unavailable + [facility] Unavailable [address] + [place] [address] JOELYEHUDA Unavailable Unavailable + [facility] Unavailable [address] + [place] [address] JOELALEJANDRAIE Unavailable Unavailable + [facility] Unavailable [address] + [place] [address] JOEL YEHUDA Unavailable [address] + [address] [place] [address] [facility] Unavailable [address] + [place] [address] JOEL YEHUDA Unavailable . + [place] [address] [facility] Unavailable [address] + [place] [address] JOELALEJANDRAIE Unavailable Unavailable + [facility] Unavailable [address] + [place] [address] + [place] [address] [facility] Unavailable [address] + [place] [address] [address] + [place] [address] [facility] Unavailable [address] + [place] [address] [address] + [place] [address] [facility] Unavailable [address] + [place] [address] YEHUDA MALDONADO [address] + [place] [address] [facility] Unavailable [address] + [place] [address] YEHUDA MALDONADO [address]available [address] + [place] [address] [facility] Unavailable [address] + [place] [address] YEHUDA MALDONADO [address]available [address] + [place] [address] [facility] Unavailable [address] + [place] [address] YEHUDA MALDONADO [address] + [place] [address] [facility] Unavailable [address] + [place] [address] YEHUDA MALDONADO [address]available [address] + [place] [address] [facility] Unavailable [address] + [place] [address] YEHUDA MALDONADO Unavailable [address] + [place] [address] [facility] Unavailable [address] + [place] [address] YEHUDA MALDONADO Unavailable [address] + [place] [address] [facility] Unavailable [address] + [place] [address] YEHUDA MALDONADO [address]available [address] + [place] [address] [facility] Unavailable [address] + [place] [address] YEHUDA MALDONADO Unavailable [address] + [place] [address] [facility] Unavailable [address] + [place] [address] YEHUDA MALDONADO [address]available [address] + [place] [address] [facility] Unavailable [address] + [place] [address] YEHUDA MALDONADO Unavailable [address] + [place] [address] [facility] Unavailable [address] + [place] [address] Care Team Providers Name Role Phone Juan [...] Chronic Isaias Leon, Active [place] obstructive D.O. [facility] pulmonary Hospital disease, Repository unspecified / J44.9(ICD-10) 01/30/2018 Unknown J40 - Bronchitis, Foster, Active [place] not specified as [facility] acute or chronic Hospital / J40(ICD-10) Repository 02/28/2018 Unknown R05 - Cough / Juan Jose Lagunas Active [place] R05(ICD-10) [facility] Hospital Repository 11/13/2017 Unknown M05.79 - STARLA SHARMA Active [place] Rheumatoid [facility] arthritis with Hospital rheumatoid factor Repository of multiple sites without organ or systems involvement / M05.79(ICD-10) 06/29/2017 Unknown 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 - Trigger Chicorelli, 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, right [facility] middle finger / Hospital M65.331(ICD-10) Repository PROCEDURES PROCEDURES No Procedure Records FoundRESULTS RESULTS 6 MINUTE WALK TEST Observed: 03/12/2018 Status: F Source: [place] 5:57 AM [facility] HOSPITAL REPOSITORY [facility] Pulmonary Services/Neurology [address] [place] [address] MR#: [id number] Acct: [id number] Name: LAUREN MALDONADO Rep #: [id number] : 1960 58 From: Semaj Joseph MD Referring Dr: Delisa Foster GORE INSERTER Date: Ordering Dr: Sex: F C Location: PSN PSN 6 Minute Walk Test - 6 Minute Walk Test 6 Minute Walk Test: 6 Minute Walk Test PSN:6-Minute Walk Test Start: 03/11/18 09:18 Freq: Status: Active Protocol: RESP.6MINW Document 03/11/18 09:18 [facility] (Rec: 03/11/18 09:30 [facility] [id number]) 6 Minute Walk Test Date Performed 03/11/18 [...] Dictated: 03/11/18 1126 Date Transcribed: 03/11/18 1126 Speech Assistant: Semaj Joseph MD Signed Observed: 03/08/2018 Status: F Source: [place] RESPIRATORY PANEL 12:30 PM [facility] MOLECULAR REPOSITORY RP PANEL ADENOVIRUS Not Detected [...] acid amplification Performed By: #### M100.638 #### [facility] [address], [address] PULMONARY FUNCTION Observed: 03/05/2018 Status: F Source: [place] TEST 2:27 PM [facility] REPOSITORY [facility] Pulmonary Services/Neurology [address] [place] [address] MR#: [id number] Acct: [id number] Name: LAUREN MALDONADO Rep #: [id number] : 1960 58 From: Isaias Leon DO Referring Dr: Delisa Foster NP Status: REG CLI Ordering Dr: Date: Location: [facility] Sex: F C INTRODUCTION: The patient [...] MD Date Dictated: 03/05/181421 Date Transcribed: 03/05/181421 Speech Assistant: CHRISTIANA Signed URGENT CARE VISIT Observed: 02/25/2018 Status: F Source: [place] REPORT 10:07 AM [facility] REPOSITORY [facility] [address] [place] [address] OFFICE VISIT Date of Service: 01/28/18 MR#: [id number] Acct: [id number] Name: LAUREN MALDONADO Rep #: [id number] : 1960 Provider: Juan Jose CARABALLO Age/Sex: 57/F Location: [facility] Status: Signed with Addenda ADDENDUM by Juan [...] the above. This note was generated with Buyosphere dictation software. It may contain incorrect words, spelling, and punctuation that were not noted in checking the note before signing. 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 Medications verbally confirmed by patient. [facility] Medical History Depression (Chronic) Limb weakness (Chronic) [...] members and also with similar complaints. No cvuz-yfu-rxapvrs products have been tried to assist with [...] the above. This note was generated with Buyosphere dictation software. It may contain incorrect words, spelling, and punctuation that were not noted in checking the note before signing. Medications New: Coding Level of Care Code Off vis,est,level 3 01/28/18 0953 <Electronically signed by Juan Jose CARABALLO> Date Juan Jose CARABALLO Cosigner Signature: Date (if applicable) CC: PULMONARY VISIT REPORT Observed: 01/30/2018 Status: F Source: [place] 9:49 AM [facility] REPOSITORY [facility] [place] [address] [place] [address] OFFICE VISIT Date of Service: 01/30/18 MR#: [id number] Acct: [id number] Name: LAUREN MALDONADO Rep #: [id number] : 1960 Provider: Delisa Foster Age/Sex: 57/F Location: [facility] Status: Signed Assessment AND Plan Problems 1. [...] partial relief. She has not added any lxmk-qxl-tguymig medications to treat her symptoms. Intake Vital [...] Admin Location Lot Number Expiration Date NDC Site Acquisition Manager 60 mg IM Lt gluteal [id number] 04/20/19 [id number] [employer] Coding Level of Care Code Off vis,est,level 4 Diagnoses 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 classification J44.9 01/30/18 0949 <Electronically signed by Delisa PADILLA> Date Delisa PADILLA Cosigner Signature: Date (if applicable) CC: Leon Pinto MD Observed: 01/30/2018 Status: F Source: [place] INFLUENZA A+B (RAPID 9:44 AM [facility] SOILA) REPOSITORY FLU A/B Rapid Negative test results should be confirmed by culture. Order Rapid Viral Culture for Influenzae A+B ([id number]) if clinically indicated. Influenza Ag, Direct Presumptive NEGATIVE for Influenza A/B Antigen (See Note) Performed By: #### M101.0101, M100.638 #### [facility] [address] [place], [address] Observed: 01/30/2018 Status: F Source: [place] RESPIRATORY PANEL 9:44 AM [facility] MOLECULAR REPOSITORY RP PANEL Normal Reference Range [...] amplification Performed By: #### M101.0101, M100.638 #### [facility] [address] [place], [address] ERYTHROCYTE SED RATE Collected: 01/30/2018 Status: F Source: [place] 9:13 AM [facility] REPOSITORY TYPE CODE TESTS RESULT OUT OF RANGE REFERENCE UNITS LAB L102.0000 0-30 mm/hr Normal SED RATE 12 Performed By: #### L101.9900, L100.0100 #### [facility] [address] [place], [address] CBC W/DIFF, AUTOMATED Collected: 01/30/2018 Status: F Source: [place] 9:13 AM [facility] REPOSITORY TYPE CODE TESTS RESULT OUT [...] 1.69 Performed By: #### L101.9900, L100.0100 #### [facility] [address], [address] COMPREHENSIVE METABOLIC Collected: 01/30/2018 Status: F Source: [facility] 9:13 AM [facility] REPOSITORY TYPE CODE TESTS RESULT OUT [...] GAP 9 Performed By: #### L500.4050 #### [facility] [address] 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 This note was generated with Vertroation software. It may contain incorrect words, spelling, and punctuation that were not noted in checking the note before signing. Orders Orders: Coding Level of Care Code Off vis,est,level 4 Diagnoses Acute maxillary sinusitis J01.00 Bronchitis J40 01/30/18 0900 <Electronically signed by Juan Jose CARABALLO> Date Juan Jose CARABALLO Cosigner Signature: Date (if applicable) CC: CHEST PA AND LATERAL Observed: 01/30/2018 Status: F Source: [place] 7:57 AM [facility] REPOSITORY [facility] Imaging Services [address] [place] [address] Chest PA and Lateral MR#: [id number] Acct: [id number] Name: LAUREN MALDONADO Rep #: [id number] : 1960 F 57 From: Beny Schwab MD PCP: Blair MARTIN,Leon [facility] Status: REG CLI Study: Chest PA and Lateral Date of Exam: 01/30/18 Exam# [id number] Ordering Dr: Juan Jose Lagunas STUDY: X-RAY [...] Beny Schwab MD at 8:47 EST Tel [phone], Service support , CC: Juan Jose CARABALLO; Leon Pinto MD Speech Assistant: Signed HEPATITIS B SURFACE Collected: 11/13/2017 Status: F Source: [place] AG 4:42 PM [facility] REPOSITORY TYPE CODE TESTS RESULT OUT OF RANGE REFERENCE UNITS LAB L3100.0400 Negative Normal HB Negative SURF AG Performed By: #### L3100.0390, L3100.0440, L3400.7000 #### [facility] (refer to report for specific site) refer to report for address and phone number HEPATITIS B CORE AB Collected: 11/13/2017 Status: F Source: [place] IGM 4:42 PM [facility] REPOSITORY TYPE CODE TESTS RESULT OUT OF RANGE REFERENCE UNITS LAB L3100.0440 Negative Normal HB Negative CORE [id number] Result Comment: Performed at: - [facility] [address] [id number] B2B Sales Consultant: Doc Rizzo PhD, Phone: [phone] Performed By: #### L3100.0390, L3100.0440, L3400.7000 #### [facility] (refer to report for specific site) refer to report for address and phone number QUANTIFERON TB-GOLD Collected: 11/13/2017 Status: F Source: [place] 4:42 PM [facility] REPOSITORY TYPE CODE TESTS RESULT OUT [...] to cdc.gov/tb for further details. Effective fall, [facility] number [id number] QuantiFERON Client Incubated with three tube collection kit will be made non-orderable following depletion of collection and testing kits. *[employer] offers [id number] QuantiFERON-TB Plus (Client Incubated)* with four tube collection kit. Performed By: #### L3100.0390, L3100.0440, L3400.7000 #### [facility] (refer to report for specific site) refer to report for address and phone number CBC, EMPLOYEE Collected: 10/31/2017 Status: F Source: [place] 9:26 AM [facility] REPOSITORY TYPE CODE TESTS RESULT OUT [...] Lymph 2.02 Performed By: #### L100.0200 #### [facility] [place], [address] URINALYSIS, EMPLOYEE Collected: 10/31/2017 Status: F Source: [place] 9:26 AM [facility] REPOSITORY TYPE CODE TESTS RESULT OUT [...] 25 ESTERASE Performed By: #### L400.0100 #### [facility] [address] [place], [place], [address] EMPLOYEE PROFILE Collected: 10/31/2017 Status: F Source: [place] 9:26 AM [facility] REPOSITORY TYPE CODE TESTS RESULT OUT [...] LDH 203 Performed By: #### L500.2900 #### [facility] [address] [place], [address] NICOTINE URINE DRUG Collected: 10/31/2017 Status: F [...] of Nicotine. Performed By: #### L505.6240 #### [facility] [address] [place], [address] FOOT MIN 3 VIEWS Observed: 10/30/2017 Status: F Source: [place] 10:04 AM [facility] REPOSITORY [facility] Imaging Services [address] [place] [address] Foot min 3 Views MR#: [id number] Acct: [id number] Name: LAUREN MALDONADO Rep #: [id number] : 1960 F 57 From: Shelly Dumont MD PCP: Leon Pinto MD, Chi Status: REG CLI Study: Foot min 3 Views Date of Exam: 10/30/17 Exam# [id number] Ordering Dr: Mary Ramirez DPM STUDY: X-RAY [...] CC: Mary Ramirez DPM; Leon Pinto MD Speech Assistant: Signed ERYTHROCYTE SED RATE Collected: 09/13/2017 Status: F Source: [place] 12:48 PM [facility] REPOSITORY TYPE CODE TESTS RESULT OUT OF RANGE REFERENCE UNITS LAB L102.0000 0-30 mm/hr Normal SED RATE 17 Performed By: #### L101.9900, L100.0500 #### [facility] [address] [place], [place], [address] CBC-COMPLETE BLOOD CNT Collected: 09/13/2017 Status: F Source: [place] NO DIFF 12:48 PM [facility] REPOSITORY TYPE CODE TESTS RESULT OUT [...] 8.8 Performed By: #### L101.9900, L100.0500 #### [facility] [address] [place], [address] COMPREHENSIVE METABOLIC Collected: 09/13/2017 Status: F [facility] 12:48 PM [facility] REPOSITORY TYPE CODE TESTS RESULT OUT [...] 5 Performed By: #### L500.4050, L501.6710 #### [facility] [address] [place], [address] CRP Collected: 09/13/2017 Status: F Source: [place] 12:48 PM [facility] REPOSITORY TYPE CODE TESTS RESULT OUT OF RANGE REFERENCE UNITS LAB L501.6710 0.0-3.0 mg/L High 8.02 C-REACTIVE PROT Result Comment: C-Reactive Protein (CRP) provides useful information for the diagnosis, therapy and monitoring of inflammatory processes and associated diseases. For the evaluation of Relative Risk for Cardiovascular Disease, a High Sensitivity CRP (HSCRP) should be ordered. Performed By: #### L500.4050, L501.6710 #### [facility] [address] [place], [place], [address] PULMONARY VISIT REPORT Observed: 09/06/2017 Status: F Source: [place] 9:46 AM [facility] REPOSITORY [facility] [place] [address] [place], [place] [address] OFFICE VISIT Date of Service: 09/06/17 MR#: [id number] Acct: [id number] Name: LAUREN MALDONADO Rep #: [id number] : 1960 Provider: Delisa Foster Age/Sex: 57/F Location[place] [facility] Status: Signed Assessment AND Plan 1. TAMRA [...] and nicotine patches. Lengthy discussion, 7 minutes mtqh-pg-rpcn, regarding smoking cessation. The patient reports that she will try using suckers and cold turkey, with hopes to be smoke free when she sees Dr. Joseph in 6 months. Plan Detail Follow Up 6 Months ([facility]) HPI HPI Comments Details: This is a 57 year old f, currently under the care of Dr. Pinto of [facility], here to follow up for sleep [...] lb Intake Visit Reasons: 6 M FU [facility] Vendor: Emilie Accompanied by: Self Is patient [...] puff INHALATION QDAY #1 ea 06/29/17 [Rx] [facility] Medical History Depression (Chronic) Limb weakness (Chronic) [...] Codes Time Spent - 3-10 minutes: Yes (28296) 09/06/17 0946 <Electronically signed by Delisa PADILLA> Date Delisa PADILLA Cosigner Signature: Date (if applicable) CC: Leon Pinto MD ORTHOPEDIC VISIT Observed: 06/21/2017 Status: F Source: [place] REPORT 4:43 PM [facility] REPOSITORY [facility] Medicine [address] [place] [address] OFFICE VISIT Date of Service: 06/19/17 MR#: [id number] Acct: [id number] Name: LAUREN MALDONADO Rep #: [id number] : 1960 Provider: Jojo Santana DO Age/Sex: 57/F Location[place] [facility] Status: Signed Intake Intake Visit Reasons: right [...] 06/06/2017 Status: F Source: [place] 11:36 AM [facility] REPOSITORY [facility] Medical Records Department [address] [place] [address] Operative Report 06/06/17 1117 MR#: [id number] Acct: [id number] Name: LAUREN MALDONADO Rep #: [id number] : 1960 57 From: Jojo Santana DO PCP: Blair MARTIN,Leon Jacome Status: REG [facility] [place] Location: [place] [address] Report of Operation Date of Procedure: 06/06/17 Pre-Operative Diagnosis: right middle finger trigger finger Post-Operative Diagnosis: same Surgery/Procedure Performed:: right middle finger A1 hiram release Type of Anesthesia:: Block,Soldier Anesthesiologist: Luis Enrique Ramirez Drains: tt-8 mins [...] was prepped in usual sterile fashion after Soldier block was initiated. We then marked out [...] issues arise This note was generated with Vertroation software. It may contain incorrect words, spelling, and punctuation that were not noted in checking the note before signing. 06/06/17 1136 <Electronically signed by Jojo Santana DO> Date Jojo Santana DO CC: Jojo Santana DO; Leon Pinto MD Signed DISCHARGE INSTRUCTION Observed: 06/06/2017 Status: F Source: [place] 11:17 AM [facility] REPOSITORY [facility] Medical Records Department [address] [place] [address] Instructions for Home/Discharge Instructions 06/06/17 1116 MR#: [id number] Acct: [id number] Name: LAUREN MALDONADO Rep #: [id number] : 1960 57 From: Jojo Santana DO PCP: Blair MARTIN,Leon [place] Status: REG [facility] Discharge Diet: No Restrictions - keep dressing [...] Follow Up With: Jojo Santana DO - [phone] 06/06/17 1117 <Electronically signed by Jojo Santana DO> Date Jojo Santana DO CC: Leon Pinto MD ORTHOPEDIC VISIT Observed: 06/01/2017 Status: F Source: [place] REPORT 11:50 AM [facility] REPOSITORY [facility] [address] [place] [address] OFFICE VISIT Date of Service: 06/01/17 MR#: [id number] Acct: [id number] Name: LAUREN MALDONADO Rep #: [id number] : 1960 Provider: Jojo Santana DO Age/Sex: 57/F [place] [facility] [place]: Signed Intake [...] mg PO QWEEK 04/09/17 [History Confirmed 06/01/17] [facility] Medical History Depression (Chronic) Limb weakness (Chronic) [...] 04/12/2017 Status: F Source: [place] 7:20 AM [facility] REPOSITORY TYPE CODE TESTS RESULT OUT [...] 2.31 Performed By: #### L100.0100, L101.9900 #### [facility] [address], [address] ERYTHROCYTE SED RATE Collected: 04/12/2017 Status: F Source: [place] 7:20 AM [facility] REPOSITORY TYPE CODE TESTS RESULT OUT OF RANGE REFERENCE UNITS LAB L102.0000 0-30 mm/hr Normal SED RATE 15 Performed By: #### L100.0100, L101.9900 #### [facility] [address] [place], [address] COMPREHENSIVE METABOLIC Collected: 04/12/2017 Status: F Source: [facility] 7:20 AM [facility] REPOSITORY TYPE CODE TESTS RESULT OUT [...] 8 Performed By: #### L500.4050, L501.6710 #### [facility] [address] [place], [address] CRP Collected: 04/12/2017 Status: F Source: [place] 7:20 AM [facility] REPOSITORY TYPE CODE TESTS RESULT OUT OF RANGE REFERENCE UNITS LAB L501.6710 0.0-3.0 mg/L Normal < 2.90 C-REACTIVE PROT Result Comment: C-Reactive Protein (CRP) provides useful information for the diagnosis, therapy and monitoring of inflammatory processes and associated diseases. For the evaluation of Relative Risk for Cardiovascular Disease, a High Sensitivity CRP (HSCRP) should be ordered. Performed By: #### L500.4050, L501.6710 #### [facility] [address] [facility] [place], [address] OPERATIVE REPORT Observed: 04/09/2017 Status: F Source: [place] 4:14 PM [facility] REPOSITORY [facility] Medical Records Department [address] [place] [address] Operative Report 04/09/17 1610 MR#: [id number] Acct: [id number] Name: LAUREN MALDONADO Rep #: [id number] : 1960 57 From: Rj Bravo MD PCP: Blair MARTIN,Leon Jacome Status: [facility] Y [place] [facility] Problem List (1) Degeneration of cervical disc [...] OR 3 Observed: 04/09/2017 Status: F Source: [place] VIEWS 12:00 AM [facility] REPOSITORY [facility] Imaging Services [address] [place] [address] Cerv Spine 2 or 3 Views MR#: [id number] Acct: [id number] Name: LAUREN MALDONADO Rep #: [id number] : 1960 F 57 From: Beny Schwab MD PCP: Leon Pinto MD, Chi Status: [facility] Study: Cerv Spine 2 or 3 Views Date of Exam: 04/09/17 Exam# [id number] Ordering Dr: Rj Bravo MD STUDY: X-RAY [...] Beny Schwab MD at 9:30 EST Tel [phone], Service support , CC: Rj Bravo; Leon Pinto MD Speech Assistant: Signed ALLERGIES ALLERGIES DATE TYPE / CODE NAME / CODE REACTION SEVERITY SOURCE 01/30/2018 Drug Penicillins/ Rash [facility] [id number]( [facility] [address](SNOMED XNORM) Repository CT) 01/30/2018 Drug tramadol/F00 FEELING OF Unknown [facility] [id number]([place] 8999802(SNOMED RM) Repository CT) 01/30/2018 Drug adalimumab/F Rash Unknown [facility] [id number]([place] [address](SNOMED NORM) Repository CT) 02/21/2017 Drug oxybutynin/F Upset Stomach Unknown [place] [facility] Allergy/4160 [id number]([place] [address](SNOMED NORM) Repository CT) ENCOUNTERS ENCOUNTERS ADMIT/DISCHARGE ACCOUNT ADMITTING ENCOUNTER LOCATION SOURCE NUMBER CLASS 03/11/2018 [id number] [place] 1 [facility] ing:PSN Repository 03/08/2018 [id number] Ambulatory [place] 9 [facility] ing:PSN Repository 03/05/2018 [id number] Amb[place] 3 [facility] ing:PSN Repository 03/05/2018 [id number] Ambulatory [facility] [place] 6 [facility] Repository 01/30/2018/ [id number] Ambulatory [facility] [facility] [address] [place] Repository 01/30/2018 [id number] Ambulatory [place] 0 [facility] ing:RAD Repository 01/30/2018/ [id number] Ambulatory [facility]:[place] [address] [place] Repository 01/28/2018/ [id number] Ambulatory B[facility]Building:B [place] [address] [place] Repository 11/13/2017 [id number] [place] 1 [facility] Hospital ing:LAB Repository 10/31/2017 [id number] Ambulatory [place] 7 [facility] Hospital ing:EMPH Repository 10/30/2017 [id number] Ambulatory [place] 4 [facility] ing:MTRAD Repository 09/13/2017 [id number] Ambulatory [place] 5 [facility] ing:MTLAB Repository 09/06/2017/ [id number] Ambulatory BMSBuilding:B [place] 8 [address] [facility] Repository 06/19/2017/ [id number] Ambulatory BMSBuilding:B [place] 8 7 MS.[facility] Repository 06/06/2017/ [id number] Ambulatory [place] 8 7 [facility] Hospital ing:SDC Repository 06/06/2017 [id number] Ambulatory BMSBuilding:B [place] 2 MS.[facility] Repository 06/06/2017 [id number] Ambulatory BMSBuilding:B [place] 7 [facility] Repository 06/01/2017/ [id number] Ambulatory BMSBuilding:B [place] 8 9 MS.[facility] Repository 04/12/2017 [id number] Ambulatory [place] 3 [facility] Hospital ing:MTLAB Repository 04/09/2017/ [id number] Ambulatory [place] 8 7 [facility] Hospital ing:SDC Repository PAYERS PAYERS ENCOUNTER GUARANTOR PAYER SUBSCRIBER SOURCE 03/11/2018 LAUREN MALDONADO1684 Primary Insurance:[facility] LAUREN GARCIA [facility]: [address] [id number] [address]Hgu: (330) Number: Repository [phone] ) [id number] Date:1210-65-77JZ [address] [address]MUXMUQF[place], [place] [address]CD: CHECK WEBSITE 03/11/2018 Secondary NOT GIVENUNK [place] Insurance:SELF PAY [facility] Number: Effective Repository Date:2017-09-06 03/08/2018 LAUREN MALDONADO1684 Primary Insurance:[facility]EN [facility]: [address] SERVICESPolmethodist jennie edmundson [id number] Hospital [address]Yfx: (330) Number: Repository [phone] () [id number] Date:3376-51-06WM [address] [address]GSMYQMMAX, [place] [address]IO: CHECK WEBSITE 03/08/2018 Secondary NOT GIVENUNK [place] Insurance:SELF PAY [facility] Number: Effective Repository Date:2018-03-08 03/05/2018 LAUREN MALDONADO1684 Primary Insurance:[facility] LAUREN Mcclain [facility] [address] SERVICESPolmethodist jennie edmundson [id number] [id number]: (330) Number: Repository [phone] () [id number] Date:8331-61-02EV [address] [address]OPMWPTTMM, [place] [address]NL: CHECK WEBSITE 03/05/2018 Secondary NOT GIVENUNK [place] Insurance:SELF PAY [facility] Number: Effective Repository Date:2017-09-06 03/05/2018 LAUREN MALDONADO1684 Primary Insurance:[facility] LA[facility]EN [facility]ENTERDOB: [address] SERVICESPolmethodist jennie edmundson [id number] Hospital [address]Rjh: (330) Number: Repository [phone] () [id number] Date:6466-71-83SO [address] [address]BMJCHMVYT, [place] [address]DR: CHECK WEBSITE 03/05/2018 Secondary NOT GIVENUNK [place] Insurance:SELF PAY [facility] Number: Effective Repository Date:2018-03-05 01/30/2018 LAUREN MALDONADO1684 Primary Insurance:[facility] LA[facility]EN [facility]ENTERDOB: [address] SERVICESPolicy [id number] Hospital [address]Uyp: (330) Number: Repository [phone] () [id number] Date:4787-12-28RI [address] [address]RTTWLHUAC, [place] [address]QO: CHECK WEBSITE 01/30/2018 Secondary NOT GIVENUNK [place] Insurance:SELF PAY [facility] Number: Effective Repository Date:2018-01-30 01/30/2018 LAUREN MALDONADO1684 Primary Insurance:[facility] LAUREN Mcclain [facility]: Community [address] [place] [address] SERVICESPolicy [id number] [facility] [address]Oft: (330) Number: Repository [phone] () [id number] Date:4206-89-93EP [address] [address]PEVXKYXWY, [place] [address]UK: CHECK WEBSITE 01/30/2018 Secondary NOT GIVENUNK [place] Insurance:SELF PAY [facility] Number: Effective Repository Date:2018-01-30 01/30/2018 LAUREN MALDONADO1684 Primary Insurance:[facility] LAUREN Mcclain [facility]: Community [address] [place] [address] SERVICESPolicy [id number] Hospital [address]Cgt: (330) Number: Repository [phone] () [id number] Date:4141-61-69OM [address] [address]BZNKJXOAZ, [place] [address]MW: CHECK WEBSITE 01/30/2018 Secondary NOT GIVENUNK [place] Insurance:SELF PAY [facility] Effective Repository Date:2018-01-30 01/28/2018 LAUREN MALDONADO1684 Primary Insurance:[facility] LAUREN Mcclain [facility]: [place] [address] SERVICESPolicy [id number] Hospital [address]Ltk: (330) Number: Repository [phone] () [id number] Date:3361-74-85UL [address] [address]DVSSZLUMT, [place] [address]AF: CHECK WEBSITE 01/28/2018 Secondary NOT GIVENUNK [place] Insurance:SELF PAY [facility] Number: Effective Repository Date:2018-01-28 11/13/2017 LAUREN MALDONADO1684 Primary Insurance:[facility] LA[facility]EN [facility]DOB: [facility] [address] [id number] Hospital [address]Gld: (330) Number: Repository [phone] () [id number] Date:2173-14-39TA [address] [address]GMTDEGVGD, [place] [address]XK: CHECK WEBSITE 11/13/2017 Secondary NOT GIVENUNK [place] Insurance:SELF PAY [facility] Number: Effective Repository Date:2017-11-13 10/31/2017 LAUREN MALDONADO1684 Primary NOT GIVENUNK [place] [facility] Insurance:SELF PAY [address] [address]Cuj: (330) Number: Effective Repository [phone] () Date:2017-10-31 10/30/2017 LAUREN MALDONADO1684 Primary Insurance:[facility] LA[facility]EN [facility]: [facility] [address] [id number] Hospital [address]Uib: (330) Number: Repository [phone] () [id number] Date:3351-80-63YR [address] [address]UIUWQJGMI, [place] [address]RN: CHECK WEBSITE 10/30/2017 Secondary NOT GIVENUNK [place] Insurance:SELF PAY [facility] Number: Effective Repository Date:2017-10-30 09/13/2017 LAUREN MALDONADO1684 Primary Insurance:[facility] LA[facility]EN [facility]ENTERDOB: [address] [id number] Hospital [address]Eyr: (330) Number: Repository [phone] () [id number] Date:1209-44-85WS [address] [address]SULXUZFUZ, [place] [address]UL: CHECK WEBSITE 09/13/2017 Secondary NOT GIVENUNK [place] Insurance:SELF PAY [facility] Number: Effective Repository Date:2017-09-13 09/06/2017 LAUREN MALDONADO1684 Primary Insurance:[facility] LA[facility]EN [facility]ENTERDOB: [address] [id number] [facility] [address]Rya: (330) Number: Repository [phone] () [id number] Date:5999-84-48IB [address] [address]SHWMGXRUQ, [place] [address]VZ: CHECK WEBSITE 09/06/2017 Secondary NOT GIVENUNK [place] Insurance:SELF PAY [facility] Number: Effective Repository Date:2017-08-30 06/19/2017 LAUREN MALDONADO1684 Primary NOT GIVENUNK [place] [facility] Insurance:SELF PAY [address] [address]Klm: (330) Number: Effective Repository [phone] () Date:2017-06-19 06/06/2017 LAUREN MALDONADO1684 Primary Insurance:[facility] LAUREN GARCIA [facility]DOB: [address] [id number] Hospital [address]Aop: (330) Number: Repository [phone] () [id number] Date:4716-41-60UU [address] [address]JCXVLPUST, [place] [address]UT: CHECK WEBSITE 06/06/2017 Secondary NOT GIVENUNK [place] Insurance:SELF PAY [facility] Number: Effective Repository Date:2017-06-04 06/06/2017 LAUREN MALDONADO1684 Primary LAUREN GARCIA RDLOT Insurance:MEDICAL THOMASDOB: [address] [id number] Hospital [address]Shs: (330) Number: Repository [phone] () [id number] Date:0039-77-01VU [address] [address], [place] [address]IP: 06/06/2017 Secondary NOT GIVENUNK [place] Insurance:SELF PAY [facility] Number: Effective Repository Date:2017-06-06 06/06/2017 LAUREN MALDONADO1684 Primary Insurance:[facility] LAUREN GARCIA [facility]DOB: [address] [id number] Hospital [address]Mro: (330) Number: Repository [phone] () [id number] Date:3853-14-11OX [address] [address]ATNCUTKXS, [place] [address]EX: CHECK WEBSITE 06/06/2017 Secondary NOT GIVENUNK [place] Insurance:SELF PAY [facility] Number: Effective Repository Date:2017-06-06 06/01/2017 LAUREN MALDONADO1684 Primary Insurance:[facility] LAUREN Mcclain [facility]: [place] [address] SERVICESPolicy [id number] Hospital [address]Krp: (330) Number: Repository [phone] () [id number] Date:5453-02-14LS [address] [address]XPPGEWQIT, [place] [address]LF: CHECK WEBSITE 06/01/2017 Secondary NOT GIVENUNK [place] Insurance:SELF PAY [facility] Number: Effective Repository Date:2017-06-01 04/12/2017 LAUREN MALDONADO1684 Primary Insurance:[facility] LAUREN Mcclain [facility]: [place] [address] [place] SERVICESPolic [id number] Hospital [address]Bef: (330) Number: Repository [phone] () [id number] Date:7306-84-43ZC [address] [address]BVDNVNFEF, [place] [address]OL: CHECK WEBSITE 04/12/2017 Secondary NOT GIVENUNK [place] Insurance:SELF PAY [facility] Number: Effective Repository Date:2017-04-12 04/09/2017 LAUREN MALDONADO1684 Primary Insurance:[facility] LAUREN Mcclain [facility]: [place] [address] [place] SERVICESPolmethodist jennie edmundson [id number] Hospital [address]Kzq: (330) Number: Repository [phone] () [id number] Date:6613-00-99NX [address] [address]KGGXFHAKZ, [place] [address]PD: CHECK WEBSITE 04/09/2017 Secondary NOT GIVENUNK [place] Insurance:SELF PAY [facility] Number: Effective Repository Date:2017-04-04
== END ==
PROVIDERS: Family Provider Family Medicine Geriatric Medicine; PCP Family Medicine Geriatric Medicine; Referring Provider Nurse Practitioner Acute Care; Visit Provider Nurse Practitioner Acute Care
DX: J44.9 Chronic obstructive pulmonary disease, unspecified (principal)
CPT/HCPCS: 94618

== ENCOUNTER → 2018-03-21 10:23 | Outpatient (CLI) | payer OTHER, SELFPAY ==
[2018-01-30 08:32] VITALS: BMI 38.2
[2018-03-21 12:40] LABS: Absolute Lymphocyte Count 2.26 X10^3/ul (0.83-4.51); Absolute Neutrophil Count 7.6 X10^3/uL (2.0-7.7); Basophil# 0.02 X10^3/uL; Basophil% 0.2 % (0-1); Eosinophil# 0.01 X10^3/uL; Eosinophils% 0.1 % (0-5); Hematocrit 44.5 % (37-47); Hemoglobin 14.7 g/dl (12.0-15.0); Lymphocyte # 2.26 X10^3/ul (4.0); Lymphocyte % 20.9 % (19-41); Mean Corpuscular Hgb 31.7 pg (27.0-32.0); Mean Corpuscular Volume 95.9 fL (81-99); Monocyte# 0.84 X10^3/uL; Monocyte% 7.8 % (0-10); Neutrophil # 7.64 X10^3/uL (2.7-7.7); Neutrophil % 70.4 % (47-70); Platelet Count 331 K/mm3 (150-450); RBC Distribution Width CV 14.1 % (11.6-14.6); RBC Distribution Width SD 49.1 fl (35.1-43.9); Red Blood Count 4.64 M/mm3 (4.2-5.4); White Blood Count 10.8 K/mm3 (4.4-11.0)
[2018-03-21 12:42] LABS: POSITIVE COUNT NO; POSITIVE DIFFERENTIAL NO; POSITIVE MORPHOLOGY NO
[2018-03-21 12:50] LABS: Anion Gap 8 (5-15); BUN 12 mg/dL (7-18); BUN/Creat Ratio 13.1 RATIO (10-20); Calcium,Total 8.9 mg/dL (8.5-10.1); Chloride 106 mmol/L (98-107); Creatinine, Serum 0.92 mg/dL (0.55-1.02); EST Glomerular Filtration Rate 67 mL/min (>60); Est Glom Filt Rate - Afr Amer 81 mL/min (>60); Glucose 90 mg/dL (74-106); Potassium 3.8 mmol/L (3.5-5.1); Sodium Level 138 mmol/L (136-145)
== END ==
PROVIDERS: Family Provider Family Medicine Geriatric Medicine; PCP Family Medicine Geriatric Medicine; Visit Provider Family Medicine Geriatric Medicine
DX: I10 Essential (primary) hypertension (principal)
CPT/HCPCS: 80048; 85025

== ENCOUNTER → 2018-04-09 11:14 | Outpatient (CLI) | payer OTHER, SELFPAY ==
[2018-01-30 08:32] VITALS: BMI 38.2
[2018-04-09 13:00] LABS: Vitamin D,25 Hydroxy 16.1 ng/mL (29.95-100.01)
== END ==
PROVIDERS: Family Provider Family Medicine Geriatric Medicine; PCP Family Medicine Geriatric Medicine; Referring Provider Podiatrist; Visit Provider Podiatrist
DX: E55.9 Vitamin D deficiency, unspecified (principal); S92.355A Nondisplaced fracture of fifth metatarsal bone, left foot, initial encounter for closed fracture
CPT/HCPCS: 36415; 82306

== ENCOUNTER → 2018-05-03 07:06 | Outpatient (CLI) | payer OTHER, SELFPAY ==
[2018-01-30 08:32] VITALS: BMI 38.2
[2018-04-29 10:31] VITALS: BMI 39.2
--- NOTE | 2018-05-03 07:10 | RAD_ITS ---
STUDY: X-RAY - LEFT FOOT CLINICAL: Female, 58 years old. Previous stress fracture of fifth metatarsal TECHNIQUE: 3 view(s) of the foot. COMPARISON: Prior study of 10/30/2017 FINDINGS: There is an enthesophyte in the region of the Achilles tendon insertion on the posterior calcaneal tuberosity. There is a plantar aspect calcaneal spur. There is a healing nondisplaced oblique fracture of the proximal fifth metatarsal. The remaining osseous structures and articular surfaces of the left foot appear within normal limits. The soft tissue structures are unremarkable. RAD/Foot min 3 Views IMPRESSION: Calcaneal spurs. Healing nondisplaced oblique fracture of the proximal fifth metatarsal. Electronically Signed: Patric Drew MD at 16:48 EDT , Service support ,
== END ==
PROVIDERS: Family Provider Family Medicine Geriatric Medicine; PCP Family Medicine Geriatric Medicine; Referring Provider Podiatrist; Visit Provider Podiatrist
DX: M79.672 Pain in left foot (principal); S92.355A Nondisplaced fracture of fifth metatarsal bone, left foot, initial encounter for closed fracture
CPT/HCPCS: 73630

== ENCOUNTER → 2018-05-08 10:50 | Outpatient (CLI) | payer OTHER, SELFPAY ==
[2018-04-29 10:31] VITALS: BMI 39.2
--- NOTE | 2018-05-08 08:51 | BD_ITS ---
STUDY: DUAL ENERGY X-RAY ABSORPTIOMETRY / DXA REASON FOR EXAM: Female, 58 years old. The patient is postmenopausal. No loss of height. TECHNIQUE: Bone Mineral Density (BMD) measurements of lumbar spine and bilateral hips were obtained. COMPARISON: Comparison is made with prior study dated April 02, 2012. FINDINGS: Lumbar Spine (L1-L4): g/cm2 (1.102) / T-score (-0.6) / Z-score (0.3) Findings are suggestive of normal bone density with a low fracture risk. Left Femur Total: g/cm2 (1.083) / T-score (0.6) / Z-score (1.4) Left Femoral Neck: g/cm2 (1.020) / T-score (-0.1) / Z-score (1.0) Right Femur Total: g/cm2 (1.085) / T-score (0.6) / Z-score (1.4) Right Femoral Neck: g/cm2 (1.118) / T-score (0.6) / Z-score (1.7) The T-Scores on the most recent prior examination were: Lumbar Spine (L1-L4): There has been improvement of bone density since the previous examination. Left Femur Total: which represents a worsening of 2.9%. Right Femur Total: which represents an improvement of 3.7%. BD/Dexa Bone Density Study IMPRESSION: The patient is considered normal as outlined below according to World Jose Organization (WHO) criteria with a low fracture risk. There has been improvement of bone density since the previous examination. Reference Information: The T-score is the number of standard deviations above or below the standard which is normal for young adults at their peak bone mineral density. The World Health Organization (WHO) interprets the T-scores as follows: Above -1 Normal bone density Between -1 and -2.5 Osteopenia Equal to / or below -2.5 Osteoporosis As a practical clinical guideline, osteopenia may be graded as follows: Mild -1 through -1.5 Moderate -1.6 through -2.0 Severe -2.1 through -2.4 The Z-score is the number of standard deviations above or below age-matched controls. A Z-score of less than -1.5 would be considered abnormal. References: 1. NIH Osteoporosis and Related Bone Diseases http://www.osteo.org 2. International Society for Clinical Densitometry http://www.iscd.org 3. National Osteoporosis Foundation http://www.nof.org Electronically Signed: Beny Schwab, at 14:48 EDT , Service support ,
[2018-05-08 11:27] LABS: Erythrocyte Sedimentation Rate 5 mm/hr (0-30)
[2018-05-08 11:30] LABS: Hematocrit 42.6 % (37-47); Mean Corp Hgb Conc 32.9 g/gl (32-36); Mean Corpuscular Hgb 31.9 pg (27.0-32.0); Mean Platelet Vol. 8.7 fl (6.2-12.0); Platelet Count 306 K/mm3 (150-450); RBC Distribution Width CV 14.2 % (11.6-14.6); RBC Distribution Width SD 48.6 fl (35.1-43.9); Red Blood Count 4.39 M/mm3 (4.2-5.4); Scan Indicated on CBC? Y/N NO; White Blood Count 7.4 K/mm3 (4.4-11.0)
[2018-05-08 12:06] LABS: ALB/GLOB Ratio 1.1 RATIO (0.9-2.4); AST(SGOT) 20 U/L (15-37); Alanine Aminotransfer ALT/SGPT 24 U/L (13-56); Albumin, Serum 3.6 g/dL (3.2-5.0); Alkaline Phosphatase 72 U/L (45-117); Anion Gap 7 (5-15); BUN 15 mg/dL (7-18); BUN/Creat Ratio 17.3 RATIO (10-20); CRP 3.39 mg/L (0.0-3.0); Calcium,Total 8.9 mg/dL (8.5-10.1); Chloride 106 mmol/L (98-107); Creatinine, Serum 0.87 mg/dL (0.55-1.02); EST Glomerular Filtration Rate 72 mL/min (>60); Est Glom Filt Rate - Afr Amer 87 mL/min (>60); Globulin 3.4 g/dL (2.2-4.2); Glucose 91 mg/dL (74-106); Sodium Level 141 mmol/L (136-145)
== END ==
PROVIDERS: Family Provider Family Medicine Geriatric Medicine; PCP Family Medicine Geriatric Medicine
DX: M84.375S Stress fracture, left foot, sequela (principal); M05.79 Rheumatoid arthritis with rheumatoid factor of multiple sites without organ or systems involvement; Z78.0 Asymptomatic menopausal state
CPT/HCPCS: 36415; 77080; 80053; 85027; 85652; 86140

== ENCOUNTER → 2018-06-03 06:45 | Outpatient (CLI) | payer OTHER, SELFPAY ==
[2018-04-29 10:31] VITALS: BMI 39.2
--- NOTE | 2018-06-03 06:53 | RAD_ITS ---
STUDY: X-RAY - LEFT FOOT CLINICAL: Female, 58 years old. Pain, fracture recheck TECHNIQUE: 3 view(s) of the foot. COMPARISON: 05/03/2018 FINDINGS: Normal talus, calcaneus, and tarsal bones. Normal visualized subtalar, talonavicular, calcaneocuboid, tarsal and tarsometatarsal articulations. Previously described fracture at the base of the fifth metatarsal has healed, Normal metatarsophalangeal joint of the great toe. Normal tibial and fibular sesamoid bones. Normal interphalangeal joint of the great toe. Normal phalanges of the great toe. Normal second through fifth metatarsophalangeal joints. Normal interphalangeal joints and phalanges of the lesser toes. The soft tissue structures are unremarkable. RAD/Foot min 3 Views IMPRESSION: No acute findings, previously described fracture at the base of the fifth metatarsal has healed. Electronically Signed: Jim Deluna MD at 18:35 EDT , Service support ,
== END ==
PROVIDERS: Family Provider Family Medicine Geriatric Medicine; PCP Family Medicine Geriatric Medicine; Referring Provider Podiatrist; Visit Provider Podiatrist
DX: S92.355D Nondisplaced fracture of fifth metatarsal bone, left foot, subsequent encounter for fracture with routine healing (principal); M79.672 Pain in left foot; X58.XXXD Exposure to other specified factors, subsequent encounter
CPT/HCPCS: 73630

== ENCOUNTER → 2018-07-01 | Outpatient (CLI) | payer OTHER, SELFPAY ==
[2018-04-29 10:31] VITALS: BMI 39.2
--- NOTE | 2018-07-01 07:25 | RAD_ITS ---
STUDY: X-RAY - LEFT FOOT CLINICAL: Female, 58 years old. History of a fracture at the base of the fifth metatarsal. TECHNIQUE: 3 view(s) of the foot. COMPARISON: Comparison is made with prior study dated June 03, 2018 and May 03, 2018. FINDINGS: There is an enthesophyte involving the posterior superior calcaneus at the site of insertion of the Achilles tendon. Plantar spur. Normal visualized subtalar, talonavicular, calcaneocuboid, tarsal and tarsometatarsal articulations. Healed transverse fracture at the base of the fifth metatarsal. Normal metatarsophalangeal joint of the great toe. Normal tibial and fibular sesamoid bones. Normal interphalangeal joint of the great toe. Normal phalanges of the great toe. Normal second through fifth metatarsophalangeal joints. Normal interphalangeal joints and phalanges of the lesser toes. The soft tissue structures are unremarkable. RAD/Foot min 3 Views IMPRESSION: Healed transverse fracture at the base of the fifth metatarsal. Electronically Signed: Beny Shcwab, at 14:45 EDT , Service support ,
== END | disposition home or self-care (01) ==
LOC: RAD 07:19
PROVIDERS: Family Provider Family Medicine Geriatric Medicine; PCP Family Medicine Geriatric Medicine; Referring Provider Podiatrist; Visit Provider Podiatrist
DX: S92.352A Displaced fracture of fifth metatarsal bone, left foot, initial encounter for closed fracture (principal); M79.672 Pain in left foot
CPT/HCPCS: 73630

== ENCOUNTER → 2018-07-25 | Outpatient (CLI) | payer OTHER, SELFPAY ==
[2018-04-29 10:31] VITALS: BMI 39.2
--- NOTE | 2018-07-25 07:03 | RAD_ITS ---
STUDY: X-RAY - LEFT FOOT CLINICAL: Female, 58 years old. Follow-up of fifth metatarsal fracture. TECHNIQUE: 3 view(s) of the foot. COMPARISON: Comparison is made with prior study dated July 01, 2018. FINDINGS: There is an enthesophyte involving the posterior superior calcaneus at the site of insertion of the Achilles tendon. Small plantar spur. Normal visualized subtalar, talonavicular, calcaneocuboid, tarsal and tarsometatarsal articulations. Healed transverse fracture at the base of the fifth metatarsal. Normal metatarsophalangeal joint of the great toe. Normal tibial and fibular sesamoid bones. Normal interphalangeal joint of the great toe. Normal phalanges of the great toe. Normal second through fifth metatarsophalangeal joints. Normal interphalangeal joints and phalanges of the lesser toes. The soft tissue structures are unremarkable. RAD/Foot min 3 Views IMPRESSION: Healed transverse fracture at the base of the fifth metatarsal. Electronically Signed: Beny Schwab, at 8:31 EDT , Service support ,
== END | disposition home or self-care (01) ==
LOC: RAD 07:02
PROVIDERS: Family Provider Family Medicine Geriatric Medicine; PCP Family Medicine Geriatric Medicine; Referring Provider Podiatrist; Visit Provider Podiatrist
DX: S92.352A Displaced fracture of fifth metatarsal bone, left foot, initial encounter for closed fracture (principal)
CPT/HCPCS: 73630

== ENCOUNTER → 2018-08-26 | Outpatient (CLI) | payer OTHER, SELFPAY ==
[2018-04-29 10:31] VITALS: BMI 39.2
--- NOTE | 2018-08-26 07:22 | RAD_ITS ---
STUDY: X-RAY - LEFT FOOT CLINICAL: Female, 58 years old. History of metatarsal fracture. TECHNIQUE: 3 view(s) of the foot. COMPARISON: Comparison is made with prior study dated July FINDINGS: There is an enthesophyte involving the posterior superior calcaneus at the site of insertion of the Achilles tendon. Plantar spur. Normal visualized subtalar, talonavicular, calcaneocuboid, tarsal and tarsometatarsal articulations. Healed transverse fracture the base of the fifth metatarsal. Normal metatarsophalangeal joint of the great toe. Normal tibial and fibular sesamoid bones. Normal interphalangeal joint of the great toe. Normal phalanges of the great toe. Normal second through fifth metatarsophalangeal joints. Normal interphalangeal joints and phalanges of the lesser toes. The soft tissue structures are unremarkable. RAD/Foot min 3 Views IMPRESSION: Healed transverse fracture at the base of the fifth metatarsal. Electronically Signed: Beny Schwab, at 9:34 EDT , Service support ,
== END | disposition home or self-care (01) ==
LOC: RAD 07:16
PROVIDERS: Family Provider Family Medicine Geriatric Medicine; PCP Family Medicine Geriatric Medicine; Referring Provider Podiatrist; Visit Provider Podiatrist
DX: S92.302A Fracture of unspecified metatarsal bone(s), left foot, initial encounter for closed fracture (principal); M79.672 Pain in left foot
CPT/HCPCS: 73630

== ENCOUNTER → 2018-10-29 07:18 | Outpatient (CLI) | payer OTHER, SELFPAY ==
[2018-04-29 10:31] VITALS: BMI 39.2
[2018-10-29 08:27] LABS: Erythrocyte Sedimentation Rate 11 mm/hr (0-30)
[2018-10-29 08:30] LABS: Hematocrit 42.5 % (37-47); Hemoglobin 14.5 g/dL (12.0-15.0); Mean Corp Hgb Conc 34.1 g/dL (32-36); Mean Corpuscular Hgb 32.7 pg (27.0-32.0); Mean Corpuscular Volume 95.9 fL (81-99); Mean Platelet Vol. 8.7 fl (6.2-12.0); Platelet Count 328 K/mm3 (150-450); RBC Distribution Width CV 13.2 % (11.6-14.6); RBC Distribution Width SD 46.5 fl (35.1-43.9); Red Blood Count 4.43 M/mm3 (4.2-5.4); White Blood Count 8.1 K/mm3 (4.4-11.0)
[2018-10-29 08:58] LABS: AST(SGOT) 15 U/L (15-37); Alanine Aminotransfer ALT/SGPT 25 U/L (13-56); Albumin, Serum 3.6 g/dL (3.2-5.0); Alkaline Phosphatase 76 U/L (45-117); Anion Gap 3 (5-15); BUN 20 mg/dL (7-18); BUN/Creat Ratio 24.5 RATIO (10-20); CRP 8.25 mg/L (0.0-3.0); Calcium,Total 9.4 mg/dL (8.5-10.1); Chloride 107 mmol/L (98-107); Creatinine, Serum 0.82 mg/dL (0.55-1.02); EST Glomerular Filtration Rate 77 mL/min (>60); Est Glom Filt Rate - Afr Amer 93 mL/min (>60); Globulin 3.7 g/dL (2.2-4.2); Glucose 98 mg/dL (74-106); Potassium 4.2 mmol/L (3.5-5.1); Protein, Total 7.3 g/dL (6.4-8.2); Sodium Level 140 mmol/L (136-145)
== END ==
PROVIDERS: Family Provider Family Medicine Geriatric Medicine; PCP Family Medicine Geriatric Medicine
DX: M05.79 Rheumatoid arthritis with rheumatoid factor of multiple sites without organ or systems involvement (principal)
CPT/HCPCS: 36415; 80053; 85027; 85652; 86140

== ENCOUNTER → 2018-11-05 15:23 | Outpatient (CLI) | payer OTHER, SELFPAY ==
[2018-11-04 10:23] VITALS: BMI 39.2
[2018-11-08 06:07] LABS: QNTFERON TB Mitogen Value > 10.00 IU/mL (.); QNTFERON TB Nil Value 0.08 IU/mL (.); QNTFERON TB1+ Ag Value 0.15 IU/mL (.); QNTFERON TB2+ Ag Value 0.09 IU/mL (.)
[2018-11-08 16:35] LABS: QNTIFERON TB Positive Criteria Negative (Negative)
== END ==
PROVIDERS: Family Provider Family Medicine Geriatric Medicine; PCP Family Medicine Geriatric Medicine
DX: M05.79 Rheumatoid arthritis with rheumatoid factor of multiple sites without organ or systems involvement (principal)
CPT/HCPCS: 36415; 86480

== ENCOUNTER → 2018-11-11 15:45 | Outpatient (CLI) | payer OTHER, SELFPAY ==
[2018-11-04 10:23] VITALS: BMI 39.2
--- NOTE | 2018-11-11 15:46 | CT_ITS ---
STUDY: LOW DOSE CT LUNG CANCER SCREENING REASON FOR EXAM: Female, 58 years old. Tobacco use smoker screening for lung cancer RADIATION DOSAGE (If Supplied By Facility): CTDIvol = ( 3.40 ) mGy, DLP = ( 117.83 ) mGycm TECHNIQUE: No contrast was administered. Low dose technique was utilized (average mAS-38 and kVp 120). 1.25 mm axial source images with a slice interval of 1.25-mm were reconstructed in lung windows. 2.5 mm axial source images with a slice interval of 2.5-mm were reconstructed in lung windows. 5.0 mm axial source images with a slice interval of 5.0-mm were reconstructed in soft tissue windows. Nodule measured using lung windows on PACS and/or independent workstation with automated measurement of minimum and maximum diameter. Nodule measurement reported as average diameter rounded to the nearest whole number. Growth is defined as an increase ins size of greater than 1.5 mm. COMPARISON: 18 December 2016 Findings: There is a 2.8 cm groundglass nodule in the anterior segment of the right upper lobe, stable since 2017, with minor internal bolus and bronchiectatic change. There is no solid component. There is scarring/atelectasis in the lingula. There are no high risk focal pulmonary findings. There is mild emphysema. Central airways are patent. Pleural surfaces are intact. There is advanced coronary artery disease. Osseous structures are intact. CT/Low Dose CT Lung Screening IMPRESSION: 1. Right upper lobe groundglass nodule, category 2. 2. Follow-up in one year is advised 3. Advanced coronary artery disease. Cardiology referral is advised. IMPORTANT NOTES FOR USE: ACR Lung-RADS Version 1.0 Assessment Categories Release Date: June 16, 2013 Category: Coded 0-4 bases on nodule(s) with highest degree of suspicion. Negative screen is defined as categories 1 and 2; a positive screen is defined as categories 3 and 4. Category 3 and 4A nodules that are unchanged on interval CT should be coded as category 2, and individuals returned to screening in 12 months. Category 4X: Category 3 or 4 nodules with additional imaging findings that increase the suspicion of lung cancer, such as spiculation, GGN that doubles in size in 1 year, enlarged lymph notes, etc. Category Modifiers: S (significant finding unrelated to lung cancer) and C (prior history of treated lung cancer) may be added to the 0-4 Lung-RADS Electronically Signed: Melinda Staples, at 16:24 EDT Tel , Service support ,
== END ==
PROVIDERS: Family Provider Family Medicine Geriatric Medicine; PCP Family Medicine Geriatric Medicine; Referring Provider Nurse Practitioner Acute Care; Visit Provider Nurse Practitioner Acute Care
DX: J44.9 Chronic obstructive pulmonary disease, unspecified (principal); F17.200 Nicotine dependence, unspecified, uncomplicated
CPT/HCPCS: G0297

== ENCOUNTER → 2018-11-15 10:00 | Outpatient (CLI) | payer OTHER, SELFPAY ==
[2018-11-04 10:23] VITALS: BMI 39.2
[2018-11-15 13:05] LABS: Absolute Lymphocyte Count 2.27 X10^3/uL (0.83-4.51); Absolute Neutrophil Count 4.6 X10^3/uL (2.0-7.7); Basophil# 0.04 X10^3/uL; Basophil% 0.5 % (0-1); Eosinophil# 0.03 X10^3/uL; Eosinophils% 0.4 % (0-5); Hemoglobin 14.3 g/dL (12.0-15.0); Lymphocyte # 2.27 X10^3/ul (4.0); Lymphocyte % 30.1 % (19-41); Mean Corp Hgb Conc 32.5 g/dL (32-36); Mean Corpuscular Hgb 31.4 pg (27.0-32.0); Mean Corpuscular Volume 96.7 fL (81-99); Monocyte# 0.53 X10^3/uL; NRBC Flagged by Analyzer 0 % (0-5); Neutrophil # 4.59 X10^3/uL (2.7-7.7); Neutrophil % 60.9 % (47-70); Platelet Count 375 K/mm3 (150-450); RBC Distribution Width CV 13.2 % (11.6-14.6); RBC Distribution Width SD 46.4 fl (35.1-43.9); Red Blood Count 4.55 M/mm3 (4.2-5.4); White Blood Count 7.5 K/mm3 (4.4-11.0)
[2018-11-15 13:23] LABS: Vitamin D,25 Hydroxy 28.5 ng/mL (29.95-100.01)
[2018-11-15 13:40] LABS: ALB/GLOB Ratio 0.9 RATIO (0.9-2.4); AST(SGOT) 19 U/L (15-37); Alanine Aminotransfer ALT/SGPT 26 U/L (13-56); Albumin, Serum 3.6 g/dL (3.2-5.0); Alkaline Phosphatase 78 U/L (45-117); Anion Gap 8 (5-15); BUN 14 mg/dL (7-18); BUN/Creat Ratio 16.6 RATIO (10-20); Calcium,Total 9.1 mg/dL (8.5-10.1); Chloride 106 mmol/L (98-107); Creatinine, Serum 0.84 mg/dL (0.55-1.02); EST Glomerular Filtration Rate 74 mL/min (>60); Est Glom Filt Rate - Afr Amer 90 mL/min (>60); Globulin 3.8 g/dL (2.2-4.2); Glucose 89 mg/dL (74-106); Protein, Total 7.4 g/dL (6.4-8.2); Sodium Level 140 mmol/L (136-145); Thyroid Stim Hormone (TSH) 3.11 uIU/mL (0.358-3.74)
== END ==
PROVIDERS: Family Provider Family Medicine Geriatric Medicine; PCP Family Medicine Geriatric Medicine; Visit Provider Family Medicine Geriatric Medicine
DX: E55.9 Vitamin D deficiency, unspecified (principal); R53.83 Other fatigue
CPT/HCPCS: 36415; 80053; 82306; 84443; 85025

== ENCOUNTER → 2018-11-25 14:55 | Outpatient (CLI) | payer OTHER, SELFPAY ==
[2018-11-04 10:23] VITALS: BMI 39.2
== END ==
PROVIDERS: Family Provider Family Medicine Geriatric Medicine; PCP Family Medicine Geriatric Medicine; Visit Provider Nurse Practitioner Acute Care
DX: Z00.00 Encounter for general adult medical examination without abnormal findings (principal)

== ENCOUNTER → 2018-12-17 | Outpatient (CLI) | payer OTHER, SELFPAY ==
[2018-12-17 09:52] VITALS: BMI 39.2
--- NOTE | 2018-12-17 10:02 | RAD_ITS ---
STUDY: X-RAY - PELVIS AND RIGHT HIP REASON FOR EXAM: Female, 58 years old. Right hip pain. TECHNIQUE: 2 views of the pelvis and hip. COMPARISON: None. FINDINGS: There is a non-specific bowel gas pattern. Normal visualized soft tissue structures. Mild arthrosis of both sacroiliac joints. Normal bilateral superior and inferior pubic rami. Mild arthrosis of the symphysis pubis. Normal bilateral ischial tuberosities. Mild medial arthrosis of both hips. RAD/HIP, UNI W/ Pelvis 2-3 Views IMPRESSION: Mild arthrosis of the sacroiliac joints, symphysis pubis and both hips. No erosions or periostitis. Electronically Signed: Luisito Crowe MD at 11:09 EDT , Service support ,
== END | disposition home or self-care (01) ==
LOC: HPRAD 10:02
PROVIDERS: Family Provider Family Medicine Geriatric Medicine; PCP Family Medicine Geriatric Medicine; Referring Provider Orthopaedic Surgery; Visit Provider Orthopaedic Surgery
DX: M25.551 Pain in right hip (principal)
CPT/HCPCS: 73502

== ENCOUNTER → 2019-01-23 07:17 | Outpatient (CLI) | payer OTHER, SELFPAY ==
[2018-12-17 09:52] VITALS: BMI 39.2
--- NOTE | 2019-01-23 07:20 | RAD_ITS ---
STUDY: X-RAY - LUMBAR SPINE REASON FOR EXAM: Female, 58 years old. Lumbar pain right hip pain TECHNIQUE: view(s) of the lumbar spine were obtained. COMPARISON: None FINDINGS: There is mild scoliosis with lateral alignment. Vertebral bodies are intact without compression fractures or destructive lesions. There are minor age-appropriate degenerative changes. SI joints are normal. The soft tissue structures are unremarkable. RAD/L/S Spine Min 4 Views IMPRESSION: Unremarkable age-appropriate lumbar spine. Electronically Signed: Melinda Staples, at 17:41 EST Tel , Service support ,
== END ==
PROVIDERS: Family Provider Family Medicine Geriatric Medicine; PCP Family Medicine Geriatric Medicine; Referring Provider Nurse Practitioner Family; Visit Provider Nurse Practitioner Family
DX: M54.5 Low back pain (principal)
CPT/HCPCS: 72100; 72110

== ENCOUNTER 2019-02-14 16:30 | Outpatient (RCR) | payer OTHER, SELFPAY ==
[2018-12-17 09:52] VITALS: BMI 39.2
--- NOTE | 2018-12-25 17:00 | HP.PTEVAL_ITS ---
Patient's Visit Information LAUREN MALDONADO is a 58 year old F referred to Physical Therapy by Jojo Santana DO with a diagnosis of LBP, RIGHT HIP PAIN AND RA. Date of Evaluation: 12/25/18 Physical Therapist: Zahida Guerrero PT, Cert MDT - Visit Plan Frequency: 2-3x /Week Duration: 4-6 Weeks Plan: *RA. ALSO - RIGHT SHOULDER IS CURRENTLY FLARED UP AND CHRONIC NECK PAIN*. AQUATIC THERAPY FOR PAIN RELEIF, POSTURE CORRECTION/STRENGTHENING, INSTRUCTION IN APPROPRIATE BODY MECHANICS AND ACTIVITY MODIFICATIONS. DLS STARTING WITH A NEUTRAL SPINE PROGRESSING ROM TOLERATED. KATIE LE ROM, STRETCHING AND STRENGTHENING. HEP INSTRUCTION. 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 Disability: NO. Present symptoms: MILD LOW BACK PAIN, KATIE HIP PAIN, RIGHT THIGH, AND RIGHT KNEE PAIN. NO NUMBNESS OR TINGLING. Present since: CHRONIC KATIE HIP PAIN BUT SX'S FLARED UP SEP 2018. Pain Scale: WORST 8/10, LEAST 0/10. Currently: 0/10. Commenced as a result of: NO APPARENT REASON OTHER THAN WALKING IN A WALKING BOOT AFTER LEFT FOOT FX DX'D MAR 2018. OFF BOOT JULY 2018. RA FLARED UP EVERY WHERE SEP 2018. Symptoms at onset: INCREASED RIGHT HIP PAIN. Worse: STANDING TO MAKE DINNER, RISING FROM SITTING, PROLONGED SITTING, LYING IN BED - WAKES ME UP. CAN REPOSITION AND GO BACK TO SLEEP. HAPPENS 4-5 TIMES SOME NIGHTS. Better: CHANGE OF POSITION, SITTING WITH FEET FLAT ON FLOOR, IBUPROFEN. Disturbed sleep: YES. Previous history/Previous treatment: LOW BACK AND HIPS: PT AFTER HURTING BACK 15 YEARS AGO. MASSAGE THERAPY, CORTISONE INJECTIONS RIGHT HIP - LAST ONE APPROX 5 MONTHS AGO - DIDN'T HELP. NO BACK SURGERY. NO HIP SURGERIES. NO LEANDRA'S. H/O CHIROPRACTIC TREATMENTS - LAST APPROX 18 MONTHS AGO. Coughing/sneezing/straining: NEGATIVE. Gait: IT FEELS LIKE I HAVE TO PULL MY RIGHT LEG WITH ME WHEN I AM WALKING. I HAVE TO FORCE TO LIFT RIGHT LE GOING UP STEPS WHEN FLARED UP. Difficulty initiating urinatin: NO. Accidents: NO. Unexplained weight loss: NO. Imaging: Mild arthrosis of the sacroiliac joints, symphysis pubis and both hips. PMH: SMOKER, COPD, RA, GERD. LEFT FOOT IS HEALED FROM RECENT FX. H/O CHRONIC NECK PAIN - SEE'S DR. CARMICHAEL FOR PAIN MGMT AND HAS HAD MULTIPLE PROCEEDURES. RIGHT SHOULDER IS FLARED UP RIGHT NOW. - Objective Sitting/Standing Posture: POOR. FH, RS'S, SLOUCHED. Lordosis: NORMAL. Lateral shift: NO. Relevant shift: N/A. Active Correction of posture: WORSE - PERIPHERALIZES ON RIGHT. Other Observations: INDEP GAIT AND TRANSFERS WITH MILD LIMP ON RIGHT LE. Motor deficit: RIGHT HIP 3+/5, KNEE EXT 4-/5, KNEE FLEX 4-/5 ANKLE 5/5. LEFT HIP 4-/5, KNEE EXT 4/5, KNEE FLEX 5/5, ANKLE 5/5. Sensory deficit: DECREASED LIGHT TOUCH SENSATION OF RIGHT KNEE COMPARED TO LEFT AND TENDERNESS RIGHT QUAD REGION. ROM deficit: KATIE LE'S WFL. Reflexes: NT. Dural Signs: POSITIVE KATIE LE'S. Lumbar mvmt loss: flex - MIN - INCREASED KATIE HS'S AREA PAIN UPON RETURN FROM FLEX. ext - JUSTINA. R SG - MOD. L SG - MOD. Core strength: POOR. Palpation: NO ACUTE LUMBOPELVIC OR HIP TENDERNESS. - Goals Goal 1:: DECREASE C/O LOW BACK PAIN, KATIE HIP PAIN AND RIGHT LE PAIN. Goal Time Frame: 4-6 Weeks Goal 2:: IMPROVE LIFTING, SITTING, STANDING, SLEEP, SOCIAL LIFE, TRAVEL AND WORK/HOMEMAKING FUNCTION. Goal Time Frame: 4-6 Weeks Goal 3:: INSTRUCT IN PROPHYLAXIS Goal Time Frame: 4-6 Weeks - Rehabilitation Potential Rehabilitation Potential: Fair - Anticipated Interventions Patient/Client Instruction: Educate patient on: Condition, Plan of Care, Risk Factors, Benefits of Fitness Program For the Purpose of:: To improve self management Therapeutic Exercise to Include: Strength training, Body mechanics, Postural training, Flexibilty training, In an aquatic setting, Dynamic Lumbar Stabilization For the Purpose of:: To decrease pain, To increase ROM, To improve muscle performance and motor function, To increase tolerance to activity/condition/position, To improve ability of physical actions for home/community/work/leisure, To improve gait and locomotor functions Thank you for the opportunity to evaluate your patient. For Medicare and Medicare HMO plans, please review the plan of care and approve it. It will need to be FAXED BACK to us at [phone] for Medicare purposes. For Medicare only, by signing this I certify the plan of care. Please let me know if there are questions or concerns regarding this plan of care. Physician Signature: Date:
--- NOTE | 2019-02-14 16:57 | HP.PTDCSUM ---
HP - PT D/C Summary It has been my pleasure to treat LAUREN MALDONADO under orders from Jojo Santana DO, for the diagnosis of LBP, RIGHT HIP PAIN AND RA for a total of 11 visit(s). Discharge Date: 02/14/19 Please see the following information for a summary of their discharge status. - Subjective Subjective: PATIENT REPORTS SHE IS DOING A LOT BETTER AND IS READY TO CONTINUE WATER EX ON HER OWN NOW. PATIENT REPORTS SHE NO LONGER HAS PAIN AND WEAKNESS GOING UP AND DOWN STEPS, WITH PROLONGED SITTING, PUTTING ON CLOTHES, AND DOING HOUSEWORK. - Pain RLE Pain Intensity (Out of 10): 0 LLE Pain Intensity (Out of 10): 0 R shldr Pain Intensity (Out of 10): 0 - Overall Improvement % Improvement: 80 - Objective Objective/Function: ALL GOALS MET. UPON EXAM TODAY: INDEP GAIT AND TRANSFERS WITHOUT LIMP ON RIGHT LE. Motor deficit: RIGHT HIP 4-/5, KNEE EXT 5/5, KNEE FLEX 5/5 ANKLE 5/5. LEFT HIP 4/5, KNEE EXT 5/5, KNEE FLEX 5/5, ANKLE 5/5. Sensory deficit: NO. ROM deficit: KATIE LE'S WFL. Reflexes: NT. Dural Signs: NEGATIVE KATIE LE'S. Lumbar mvmt loss: flex - NIL. ext - MOD. R SG - MIN. L SG - MIN. PATIENT DENIES PAIN WITH LUMBAR ROM TESTING. Core strength: POOR - Goals Goal 1:: DECREASE C/O LOW BACK PAIN, KATIE HIP PAIN AND RIGHT LE PAIN. Goal Progress: Goal Met Goal 2:: IMPROVE LIFTING, SITTING, STANDING, SLEEP, SOCIAL LIFE, TRAVEL AND WORK/HOMEMAKING FUNCTION. Goal Progress: Goal Met Goal 3:: INSTRUCT IN PROPHYLAXIS Goal Progress: Goal Met - Plan Plan: D/C. PATIENT AGREEABLE. - D/C Information If there are questions or concerns regarding this patient's physical therapy, please feel free to call me at [phone]. Thank you for the referral of this patient. Sincerely, Zahida Guerrero, PT, Cert MDT
== END 2019-02-14 19:00 | disposition home or self-care (01) ==
LOC: PT 16:30
PROVIDERS: Family Provider Family Medicine Geriatric Medicine; PCP Family Medicine Geriatric Medicine; Referring Provider Orthopaedic Surgery; Visit Provider Orthopaedic Surgery
DX: M54.5 Low back pain (principal); M06.851 Other specified rheumatoid arthritis, right hip
CPT/HCPCS: 97113; 97162; 97530

== ENCOUNTER → 2019-02-26 14:17 | Outpatient (CLI) | payer OTHER, SELFPAY ==
[2018-12-17 09:52] VITALS: BMI 39.2
== END ==
PROVIDERS: Family Provider Family Medicine Geriatric Medicine; PCP Family Medicine Geriatric Medicine; Referring Provider Family Medicine Geriatric Medicine; Visit Provider Family Medicine Geriatric Medicine
DX: R68.83 Chills (without fever) (principal)
CPT/HCPCS: 87633

== ENCOUNTER → 2019-03-11 12:39 | Outpatient (CLI) | payer OTHER, SELFPAY ==
[2018-12-17 09:52] VITALS: BMI 39.2
[2019-03-11 13:49] LABS: Erythrocyte Sedimentation Rate 13 mm/hr (0-30)
[2019-03-11 13:52] LABS: Hematocrit 44.1 % (37-47); Hemoglobin 14.6 g/dL (12.0-15.0); Mean Corp Hgb Conc 33.1 g/dL (32-36); Mean Corpuscular Hgb 31.2 pg (27.0-32.0); Mean Corpuscular Volume 94.2 fL (81-99); Mean Platelet Vol. 8.3 fl (6.2-12.0); Platelet Count 374 K/mm3 (150-450); RBC Distribution Width CV 13.5 % (11.6-14.6); RBC Distribution Width SD 46.3 fl (35.1-43.9); Red Blood Count 4.68 M/mm3 (4.2-5.4); White Blood Count 9.6 K/mm3 (4.4-11.0)
[2019-03-11 14:13] LABS: AST(SGOT) 16 U/L (15-37); Alanine Aminotransfer ALT/SGPT 29 U/L (13-56); Albumin, Serum 3.9 g/dL (3.2-5.0); Alkaline Phosphatase 79 U/L (45-117); Anion Gap 3 (5-15); BUN 18 mg/dL (7-18); BUN/Creat Ratio 19.4 RATIO (10-20); Calcium,Total 9.5 mg/dL (8.5-10.1); Chloride 104 mmol/L (98-107); Creatinine, Serum 0.93 mg/dL (0.55-1.02); EST Glomerular Filtration Rate 66 mL/min (>60); Est Glom Filt Rate - Afr Amer 80 mL/min (>60); Globulin 3.8 g/dL (2.2-4.2); Glucose 87 mg/dL (74-106); Protein, Total 7.7 g/dL (6.4-8.2); Sodium Level 137 mmol/L (136-145)
== END ==
PROVIDERS: PCP Family Medicine Geriatric Medicine
DX: M05.79 Rheumatoid arthritis with rheumatoid factor of multiple sites without organ or systems involvement (principal)
CPT/HCPCS: 36415; 80053; 85027; 85652; 86140

== ENCOUNTER 2019-03-11 15:04 | Outpatient (RCR) | payer OTHER, SELFPAY ==
[2018-12-17 09:52] VITALS: BMI 39.2
== END 2019-03-21 23:59 | disposition home or self-care (01) ==
LOC: NS 15:04
PROVIDERS: PCP Family Medicine Geriatric Medicine; Visit Provider Family Medicine Geriatric Medicine
DX: R73.03 Prediabetes (principal)
CPT/HCPCS: G9873; G9891

== ENCOUNTER 2019-03-25 08:16 | Outpatient (RCR) | payer OTHER, SELFPAY ==
[2018-12-17 09:52] VITALS: BMI 39.2
== END 2019-04-19 23:59 ==
LOC: NS 08:16
PROVIDERS: PCP Family Medicine Geriatric Medicine; Visit Provider Family Medicine Geriatric Medicine
DX: R73.03 Prediabetes (principal)
CPT/HCPCS: G9874; G9880; G9891

== ENCOUNTER → 2019-04-08 07:00 | Outpatient (CLI) | payer OTHER, SELFPAY ==
[2018-12-17 09:52] VITALS: BMI 39.2
--- NOTE | 2019-04-08 06:53 | BI_ITS ---
MAMMOGRAPHY - BILATERAL SCREENING REASON FOR EXAM: Female, 59 years old. Routine annual screening examination. PERTINENT HISTORY: Non-contributory. TECHNIQUE: Digital bilateral breast raj (3D mammographic acquisition) in the CC and MLO projections. 2-D mediolateral oblique (MLO) and craniocaudad (CC) views of both breasts were obtained. CAD: Full Field Digital Mammography with Computer Added Detection was performed. COMPARISON: Comparison is made with prior study dated December 18, 2016 and January 08, 2014. FINDINGS: Breast Composition: The breasts are almost entirely fatty. There are no dominant masses or suspicious calcifications. Stable small benign-appearing bilateral axillary lymph nodes. No other significant abnormalities are identified. There has been no significant change since the prior study. BI/SCREEN MAMM (CAD) W/RAJ BILAT IMPRESSION: Stable bilateral screening mammogram. Yearly follow-up mammogram recommended. (A) ASSESSMENT CATEGORY: BIRADS Category 2: Benign. A letter regarding these results will be sent to the patient by the facility within 30 days. Approximately 10% of breast cancers are not detected by mammography. A normal mammogram should not delay biopsy of a clinically suspicious abnormality. [id number] Electronically Signed: Beny Schwab, at 9:20 EST , Service support ,
== END ==
PROVIDERS: PCP Family Medicine Geriatric Medicine; Referring Provider Family Medicine Geriatric Medicine; Visit Provider Family Medicine Geriatric Medicine
DX: Z12.31 Encounter for screening mammogram for malignant neoplasm of breast (principal)
CPT/HCPCS: 77063; 77067

== ENCOUNTER → 2019-04-10 06:50 | Outpatient (CLI) | payer OTHER, SELFPAY ==
[2018-11-04 10:23] VITALS: BMI 39.2
[2018-12-17 09:52] VITALS: BMI 39.2
--- NOTE | 2019-04-10 15:38 | PFTCOMP_ITS ---
COMPLETE PULMONARY FUNCTION TEST INTERPRETATION Brief HPI: Patient is a 59 year old female, currently under the care of Delisa Foster, who presents to [facility] for complete pulmonary function tests secondary to diagnosis of COPD. Respiratory therapist reports good effort and reproducible results. Interpretation: Forced expiration spirometry shows a moderate large airways obstructive ventilatory defect with an FEV1 of 65% predicted. There is no significant bronchodilator response by strict ATS criteria. Spirograms are of good quality and plateau slowly, indicating slowly emptying areas of the lungs. The respiratory flow volume loop shows decreased expiratory flow rates at all lung volumes consistent with airway obstruction. Lung volumes by body plethysmography show an elevated total lung capacity at 6.72 L, 131% predicted. FRC and RV are elevated out of proportion. Lung volume measurements are consistent with hyperinflation and air-trapping. Diffusion capacity by carbon monoxide is normal at 106% predicted. The airway resistance is elevated. Compared to previous pulmonary function tests from 02/23/2018, there has been no significant change. Impression: Irreversible moderate large airways obstructive ventilatory defect resulting in air trapping with hyperinflation.
== END ==
PROVIDERS: Family Provider Family Medicine Geriatric Medicine; PCP Family Medicine Geriatric Medicine; Referring Provider Nurse Practitioner Acute Care; Visit Provider Nurse Practitioner Acute Care
DX: J44.9 Chronic obstructive pulmonary disease, unspecified (principal)
CPT/HCPCS: 94060; 94726; 94729

== ENCOUNTER → 2019-04-17 11:50 | Outpatient (CLI) | payer OTHER, SELFPAY ==
[2018-11-04 10:23] VITALS: BMI 39.2
[2018-12-17 09:52] VITALS: BMI 39.2
[2019-04-17 12:29] VITALS: PULSE 100; PULSE 106; PULSE 107; PULSE 108; PULSE 110; PULSE 77; PULSE 84; O2SAT 93; O2SAT 94; O2SAT 95; O2SAT 96; O2SAT 97; O2SAT 98
--- NOTE | 2019-04-19 09:51 | PCM.PSN.6M ---
PSN 6 Minute Walk Test - 6 Minute Walk Test 6 Minute Walk Test: 6 Minute Walk Test PSN:6-Minute Walk Test Start: 04/17/19 12:29 Freq: Status: Active Protocol: RESP.6MINW Document 04/17/19 12:29 [facility] (Rec: 04/17/19 12:33 [facility] [id number]) 6 Minute Walk Test Date Performed 04/17/19 Time Performed 12:00 Height 5 ft 5 in Weight: 142 lb Weight in Pounds 142.[address]: Delisa Foster Assistive device used: None Pre-test Oxygen Delivery Method Room Air Pulse Ox (%) 97 Pulse Rate (60-100 beats/min) 77 Dyspnea Andreea Scale (0-10) 0 1st minute Oxygen Delivery Method Room Air Pulse Ox (%) 97 Pulse Rate (60-100 beats/min) 100 Dyspnea Andreea Scale (0-10) 0 2nd minute Oxygen Delivery Method Room Air Pulse Ox (%) 96 Pulse Rate (60-100 beats/min) 106 H Dyspnea Andreea Scale (0-10) 0 3rd minute Oxygen Delivery Method Room Air Pulse Ox (%) 95 Pulse Rate (60-100 beats/min) 107 H Dyspnea Andreea Scale (0-10) 0 4th minute Oxygen Delivery Method Room Air Pulse Ox (%) 93 Pulse Rate (60-100 beats/min) 108 H Dyspnea Andreea Scale (0-10) 0 5th minute Oxygen Delivery Method Room Air Pulse Ox (%) 95 Pulse Rate (60-100 beats/min) 110 H Dyspnea Andreea Scale (0-10) 0 6th minute Oxygen Delivery Method Room Air Pulse Ox (%) 94 Pulse Rate (60-100 beats/min) 108 H Dyspnea Andreea Scale (0-10) 0 Post-test Oxygen Delivery Method Room Air Pulse Ox (%) 98 Pulse Rate (60-100 beats/min) 84 Dyspnea Andreea Scale (0-10) 0 Full Laps Walked 23 Partial Lap, Number of Tiles Walked 14 Total Distance Walked (ft) 1371 - Interpretation Interpretation: The patient ambulated 1371 feet over the course of 6 minutes beginning on room air without assistive devices or breaks. Pretesting oxygen saturation was noted to be 97% on room air. With ambulation, the theo oxygen saturation was 93%. There was no significant exertional oxygen desaturation. - Recommendations Recommendations: There is no indication for the use of supplemental oxygen at this time.
== END ==
PROVIDERS: Family Provider Family Medicine Geriatric Medicine; PCP Family Medicine Geriatric Medicine; Referring Provider Nurse Practitioner Acute Care; Visit Provider Nurse Practitioner Acute Care
DX: J44.9 Chronic obstructive pulmonary disease, unspecified (principal)
CPT/HCPCS: 94618

== ENCOUNTER 2019-04-22 14:24 | Outpatient (RCR) | payer OTHER, SELFPAY ==
[2018-12-17 09:52] VITALS: BMI 39.2
== END 2019-05-20 23:59 ==
LOC: NS 14:24
PROVIDERS: PCP Family Medicine Geriatric Medicine; Visit Provider Family Medicine Geriatric Medicine
DX: R73.03 Prediabetes (principal)
CPT/HCPCS: G9875; G9881; G9891

== ENCOUNTER 2019-06-02 15:18 | Outpatient (RCR) | payer OTHER, SELFPAY ==
[2018-12-17 09:52] VITALS: BMI 39.2
== END 2019-06-19 23:59 ==
LOC: NS 15:18
PROVIDERS: PCP Family Medicine Geriatric Medicine; Visit Provider Family Medicine Geriatric Medicine
DX: R73.03 Prediabetes (principal)
CPT/HCPCS: G9891

== ENCOUNTER → 2019-06-09 07:08 | Outpatient (CLI) | payer OTHER, SELFPAY ==
[2018-12-17 09:52] VITALS: BMI 39.2
[2019-06-09 07:35] LABS: Hematocrit 41.1 % (37-47); Mean Corp Hgb Conc 34.1 g/dL (32-36); Mean Corpuscular Hgb 32.4 pg (27.0-32.0); Mean Corpuscular Volume 95.1 fL (81-99); Mean Platelet Vol. 8.9 fl (6.2-12.0); Platelet Count 295 K/mm3 (150-450); RBC Distribution Width CV 14.8 % (11.6-14.6); RBC Distribution Width SD 50.7 fl (35.1-43.9); Red Blood Count 4.32 M/mm3 (4.2-5.4); White Blood Count 8.3 K/mm3 (4.4-11.0)
[2019-06-09 07:43] LABS: Erythrocyte Sedimentation Rate 18 mm/hr (0-30)
[2019-06-09 07:54] LABS: ALB/GLOB Ratio 1.1 RATIO (0.9-2.4); AST(SGOT) 27 U/L (15-37); Alanine Aminotransfer ALT/SGPT 27 U/L (13-56); Albumin, Serum 3.7 g/dL (3.2-5.0); Alkaline Phosphatase 71 U/L (45-117); Anion Gap 4 (5-15); BUN 14 mg/dL (7-18); BUN/Creat Ratio 16.1 RATIO (10-20); Calcium,Total 9.1 mg/dL (8.5-10.1); Chloride 106 mmol/L (98-107); Creatinine, Serum 0.87 mg/dL (0.55-1.02); EST Glomerular Filtration Rate 71 mL/min (>60); Est Glom Filt Rate - Afr Amer 86 mL/min (>60); Globulin 3.5 g/dL (2.2-4.2); Glucose 99 mg/dL (74-106); Protein, Total 7.2 g/dL (6.4-8.2); Sodium Level 138 mmol/L (136-145)
== END ==
PROVIDERS: PCP Family Medicine Geriatric Medicine
DX: M05.79 Rheumatoid arthritis with rheumatoid factor of multiple sites without organ or systems involvement (principal)
CPT/HCPCS: 36415; 80053; 85027; 85652; 86140

== ENCOUNTER → 2019-06-12 11:56 | Outpatient (CLI) | payer OTHER, SELFPAY ==
[2018-12-17 09:52] VITALS: BMI 39.2
--- NOTE | 2019-06-12 12:15 | RAD_ITS ---
STUDY: X-RAY - LUMBAR SPINE REASON FOR EXAM: Female, 59 years old. Pain, hx of injury TECHNIQUE: 3 view(s) of the lumbar spine were obtained. COMPARISON: None FINDINGS: Normal lumbar lordosis. There is no substantial scoliosis. There is a normal alignment of the vertebrae. There is multilevel endplate spondylosis of the lumbar vertebrae. There is multi-level degenerative disc disease with multi-level disc space narrowing. There is atherosclerotic calcification of the abdominal aorta without a demonstrated aneurysm. RAD/Lumbar Spine 2 or 3 Views IMPRESSION: Degenerative changes of the spine, as detailed above. Electronically Signed: Beny Schwab, at 15:34 EDT , Service support ,
--- NOTE | 2019-06-12 12:15 | RAD_ITS ---
STUDY: X-RAY - THORACIC SPINE REASON FOR EXAM: Female, 59 years old. PAIN, hx of injury TECHNIQUE: 3 view(s) of the thoracic spine were obtained. COMPARISON: None. FINDINGS: There is an increase in the normal thoracic kyphosis. There is no substantial scoliosis. There is demineralization of the thoracic spine with endplate spondylosis. There is multilevel disc space narrowing of the thoracic spine. The soft tissue structures are unremarkable. RAD/Thoracic Spine 3 Views IMPRESSION: Multilevel disc space narrowing and spondylosis. Electronically Signed: Beny Schwab, at 15:38 EDT , Service support ,
== END ==
PROVIDERS: PCP Family Medicine Geriatric Medicine; Referring Provider Family Medicine Geriatric Medicine; Visit Provider Family Medicine Geriatric Medicine
DX: M54.6 Pain in thoracic spine (principal)
CPT/HCPCS: 72072; 72100

== ENCOUNTER 2019-06-30 08:56 | Outpatient (RCR) | payer OTHER, SELFPAY ==
[2018-12-17 09:52] VITALS: BMI 39.2
== END 2019-07-20 23:59 ==
LOC: NS 08:56
PROVIDERS: PCP Family Medicine Geriatric Medicine; Visit Provider Family Medicine Geriatric Medicine
DX: Z71.3 Dietary counseling and surveillance (principal); R73.03 Prediabetes
CPT/HCPCS: G9891

== ENCOUNTER → 2019-07-08 15:41 | Outpatient (CLI) | payer OTHER, SELFPAY ==
[2018-12-17 09:52] VITALS: BMI 39.2
--- NOTE | 2019-07-08 15:45 | RAD_ITS ---
STUDY: X-RAY - THORACIC SPINE REASON FOR EXAM: Female, 59 years old. back pain x 1 month -- unsure of injury TECHNIQUE: 2 view(s) of the thoracic spine were obtained. COMPARISON: Previous recent study of 06/12/2019 FINDINGS: Normal kyphosis of the thoracic spine. There is mild lower thoracic levoscoliosis. There is diffuse endplate spondylosis of the thoracic spine. There is mild old compression deformity of the T9 vertebral body. There is a nondisplaced chip fracture of the tip of the T9 spinous process, not seen on the previous study. There is multilevel disc space narrowing of the thoracic spine. The soft tissue structures are unremarkable. RAD/Thoracic Spine 3 Views IMPRESSION: 1. Old mild compression deformity of T9 vertebral body appearing similar to the previous study. 2. Nondisplaced chip fracture of the tip of the T9 spinous process, not seen on the previous study. 3. Mild lower thoracic levoscoliosis. 4. Diffuse endplate spondylosis of the thoracic spine. 5. Multilevel disc space narrowing. Electronically Signed: Patric Drew MD at 16:16 EDT , Service support ,
== END ==
PROVIDERS: PCP Family Medicine Geriatric Medicine; Referring Provider Nurse Practitioner Family; Visit Provider Nurse Practitioner Family
DX: M54.6 Pain in thoracic spine (principal)
CPT/HCPCS: 72072

== ENCOUNTER 2019-08-06 09:26 | Outpatient (RCR) | payer OTHER, SELFPAY ==
[2018-12-17 09:52] VITALS: BMI 39.2
[2019-08-19 11:31] VITALS: BMI 33.1
== END 2019-08-19 23:59 ==
LOC: NS 09:26
PROVIDERS: PCP Family Medicine Geriatric Medicine; Visit Provider Family Medicine Geriatric Medicine
DX: R73.03 Prediabetes (principal)
CPT/HCPCS: G9891

== ENCOUNTER 2019-08-07 13:30 | Outpatient (RCR) | payer OTHER, SELFPAY ==
[2018-12-17 09:52] VITALS: BMI 39.2
--- NOTE | 2019-07-16 17:22 | HP.PTEVAL_ITS ---
Patient's Visit Information LAUREN MALDONADO is a 59 year old F referred to Physical Therapy by Dr. Rj Bravo MD with a diagnosis of THORACIC PAIN. Date of Evaluation: 07/16/19 Physical Therapist: Jose Hughes PT, Cert MDT, OCS - Visit Plan Frequency: 2x /Week Duration: 4 Weeks Plan: PT INTERVENTIONS AQUATIC PT FOR THORACIC ROM,STRENGTHENING,POSTURAL EX'S,PATIENT EDUCATION - Subjective This 59 y/o female presents to physical therapy with thoracic pain . Patient developed mid thoracic pain between shoulder blades. Patient seen DR Sweeney recommended PT . Patient had h/o back and hip painhad prior PT in past. Patient last broke left foot subseqently caused symptoms in back and hip possible from limping with gait. Also patient has had cervical pain 2 years ago had PT and injections in shoulder and neck. Most recently , developed thoracic pain possible hiking [place] [facility] [place] [place]. Patient described as ache burning pain. 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 Alleviating factors MEDS and movement.With increase pain flared coughing/sneezing can increase symptoms. Patient is able to sleep okay.Patient symptoms can affects QOL. Patient did have x-rays thorcaic spine. SOCAIL: single. 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 PALAPTION: tender paraspinals. NEURO: intact,denies parathesia/tingling. BUE AROM: WFL. MMT:BUE 4/5. CERVICAL ROM: flexion min loss,extension mod loss,rotation mod loss,rotation min loss. THORACIC ROM: mod loss,extension mod/severe loss,rotation mod loss - Special Tests C/S Radiculapathy - Left Upper limb tension test: Negative C/S Radiculapathy - Right Upper limb tension test: Negative C/S Radiculapathy - Left Spurlings: Negative C/S Radiculapathy - Right Spurlings: Negative L/S Slump test left side: Negative L/S Slump test right side: Negative - Goals Goal 1:: Patient to be I with Aquatic therapy program Goal Time Frame: 4-6 Weeks Goal 2:: Patient to improve posture for ADL'S Goal Time Frame: 4-6 Weeks Goal 3:: Patient to decrease thracic pain by 50% or > to improve function. Goal Time Frame: 4-6 Weeks Goal 4:: Patient to improve thoracic ROM for function of recovery Goal Time Frame: 4-6 Weeks Goal 5:: Patient to increase back owestrey score by 5 points or > to improve QOL. Goal Time Frame: 4-6 Weeks - Rehabilitation Potential Physical Therapy Diagnosis: This patient has mid thoracic pain x-rays showed mild compression fracture with impairments of pain with postion and movement affecting ADL'S and job demnads thus benifit from skilled PT Rehabilitation Potential: Good - Anticipated Interventions Patient/Client Instruction: Educate patient on: Condition, Plan of Care For the Purpose of:: To decrease pain, To increase ROM, To improve muscle performance and motor function, To improve ability to perform ADL's, To increase tolerance to activity/condition/position, To improve ability of physical actions for home/community/work/leisure, To improve health of tissue, To decrease soft tissue restriction, To increase flexibility/ROM, To improve ability to perform tasks related to life management Therapeutic Exercise to Include: Strength training, Body mechanics, Postural training, Flexibilty training, In an aquatic setting, Dynamic Lumbar Stabilization Comment: THORACIC For the Purpose of:: To decrease pain, To increase ROM, To improve muscle performance and motor function, To improve ability to perform ADL's, To increase tolerance to activity/condition/position, To improve ability of physical actions for home/community/work/leisure, To improve health of tissue, To decrease soft tissue restriction, To increase flexibility/ROM, To reduce risk of recurrence, To improve ability to perform tasks related to life management Thank you for the opportunity to evaluate your patient. For Medicare and Medicare HMO plans, please review the plan of care and approve it. It will need to be FAXED BACK to us at [phone] for Medicare purposes. For Medicare only, by signing this I certify the plan of care. Please let me know if there are questions or concerns regarding this plan of care. Physician Signature: Date:
--- NOTE | 2020-01-16 12:27 | HP.PT.NRP ---
LAUREN MALDONADO was seen in my office for initial evaluation on 07/16/19. The following Plan of Care was established for this patient: Initial Frequency: 2x /Week Initial Duration: 4 Weeks Patient/Client Instruction: Educate patient on: Condition, Plan of Care For the Purpose of:: To decrease pain, To increase ROM, To improve muscle performance and motor function, To improve ability to perform ADL's, To increase tolerance to activity/condition/position, To improve ability of physical actions for home/community/work/leisure, To improve health of tissue, To decrease soft tissue restriction, To increase flexibility/ROM, To improve ability to perform tasks related to life management Therapeutic Exercise to Include: Strength training, Body mechanics, Postural training, Flexibilty training, In an aquatic setting, Dynamic Lumbar Stabilization For the Purpose of:: To decrease pain, To increase ROM, To improve muscle performance and motor function, To improve ability to perform ADL's, To increase tolerance to activity/condition/position, To improve ability of physical actions for home/community/work/leisure, To improve health of tissue, To decrease soft tissue restriction, To increase flexibility/ROM, To reduce risk of recurrence, To improve ability to perform tasks related to life management This patient was last seen in our office . Pertinent comments regarding their Physical therapy will appear below: Patient seen for Aquatic therapy for thoracic pain for postural ex's,strengthening. Doing well no pain d/c. At this point I will be discontinuing this patient from physical therapy. I would be happy to see this patient again in the future if found appropriate by the physician. Thank you! Jose Hughes, PT, Cert MDT, OCS
== END 2019-08-07 19:00 | disposition home or self-care (01) ==
LOC: PT 13:30
PROVIDERS: PCP Family Medicine Geriatric Medicine; Referring Provider Anesthesiology Pain Medicine; Visit Provider Anesthesiology Pain Medicine
DX: M54.6 Pain in thoracic spine (principal)
CPT/HCPCS: 97113; 97162

== ENCOUNTER 2019-09-01 13:00 | Outpatient (RCR) | payer OTHER, SELFPAY ==
[2019-09-02 16:58] VITALS: BMI 32.6
[2019-09-15 11:52] VITALS: BMI 32.3
== END 2019-09-19 23:59 ==
LOC: NS 13:00
PROVIDERS: PCP Family Medicine Geriatric Medicine; Visit Provider Family Medicine Geriatric Medicine
DX: Z71.3 Dietary counseling and surveillance (principal); R73.03 Prediabetes
CPT/HCPCS: G9878; G9891

== ENCOUNTER → 2019-09-23 | Outpatient (CLI) | payer OTHER, SELFPAY ==
[2019-09-15 11:52] VITALS: BMI 32.3
[2019-09-23 16:15] LABS: Bacteria 0 SEEN /hpf (None Seen); Mucous, Urine 0 SEEN /hpf (<or=2+); Red Blood Cells-Urine 0 SEEN /hpf (0-5); White Blood Cells 0 SEEN /hpf (0-5)
[2019-09-23 16:46] LABS: Color, Urine Yellow (Yellow); Glucose, Dipstick Normal (Normal); Ketone-Dipstick Negative (Negative); Leukocyte Esterase-Dipstick Negative /ul (Negative); Nitrite-Dipstick Negative (Negative); Occult Blood-Urine 10 /ul (Negative); Protein-Dipstick Negative (Negative); Urine Bilirubin Dipstick Negative (Negative); Urine Clarity Clear (Clear); Urine Urobilinogen Normal (Normal)
[2019-09-23 16:52] LABS: Squamous Epithelial Cells - UA 0-5 SEEN /hpf (5-10)
== END | disposition home or self-care (01) ==
LOC: LABSPEC 15:56
PROVIDERS: PCP Family Medicine Geriatric Medicine; Referring Provider Nurse Practitioner Adult Health; Visit Provider Nurse Practitioner Adult Health
DX: R31.9 Hematuria, unspecified (principal)
CPT/HCPCS: 81001; 87077; 87086; 87088

== ENCOUNTER 2019-09-30 15:26 | Outpatient (RCR) | payer OTHER, SELFPAY ==
[2019-09-30 19:40] VITALS: BMI 32.8
[2019-10-13 18:33] VITALS: BMI 33.5
[2019-10-20 18:44] VITALS: BMI 33.2
== END 2019-10-20 23:59 ==
LOC: NS 15:26
PROVIDERS: PCP Family Medicine Geriatric Medicine; Visit Provider Family Medicine Geriatric Medicine
DX: Z71.3 Dietary counseling and surveillance (principal); R73.03 Prediabetes
CPT/HCPCS: G9891

== ENCOUNTER → 2019-10-21 10:07 | Outpatient (CLI) | payer OTHER, SELFPAY ==
[2019-10-20 18:44] VITALS: BMI 33.2
[2019-10-21 12:09] LABS: Erythrocyte Sedimentation Rate 9 mm/hr (0-30)
[2019-10-21 12:12] LABS: Absolute Lymphocyte Count 1.78 X10^3/uL (0.83-4.51); Absolute Neutrophil Count 4.1 X10^3/uL (2.0-7.7); Basophil# 0.02 X10^3/uL; Basophil% 0.3 % (0-1); Eosinophil# 0.03 X10^3/uL; Eosinophils% 0.5 % (0-5); Hematocrit 42.3 % (37-47); Hemoglobin 13.6 g/dL (12.0-15.0); Lymphocyte # 1.78 X10^3/ul (4.0); Lymphocyte % 27.7 % (19-41); Mean Corp Hgb Conc 32.2 g/dL (32-36); Mean Corpuscular Hgb 31.6 pg (27.0-32.0); Mean Corpuscular Volume 98.4 fL (81-99); Mean Platelet Vol. 8.8 fl (6.2-12.0); Monocyte# 0.46 X10^3/uL; Monocyte% 7.2 % (0-10); NRBC Flagged by Analyzer 0 % (0-5); Neutrophil % 63.7 % (47-70); Platelet Count 328 K/mm3 (150-450); RBC Distribution Width CV 13.4 % (11.6-14.6); RBC Distribution Width SD 48.3 fl (35.1-43.9); White Blood Count 6.4 K/mm3 (4.4-11.0)
[2019-10-21 12:21] LABS: ALB/GLOB Ratio 1.1 RATIO (0.9-2.4); AST(SGOT) 17 U/L (15-37); Alanine Aminotransfer ALT/SGPT 24 U/L (13-56); Albumin, Serum 3.5 g/dL (3.2-5.0); Alkaline Phosphatase 65 U/L (45-117); Anion Gap 2 (5-15); BUN 16 mg/dL (7-18); BUN/Creat Ratio 19.1 RATIO (10-20); CRP 2.99 mg/L (0.0-3.0); Calcium,Total 8.9 mg/dL (8.5-10.1); Chloride 103 mmol/L (98-107); Creatinine, Serum 0.84 mg/dL (0.55-1.02); EST Glomerular Filtration Rate 74 mL/min (>60); Est Glom Filt Rate - Afr Amer 90 mL/min (>60); Globulin 3.3 g/dL (2.2-4.2); Glucose 92 mg/dL (74-106); Protein, Total 6.8 g/dL (6.4-8.2); Sodium Level 135 mmol/L (136-145)
== END ==
PROVIDERS: PCP Family Medicine Geriatric Medicine
DX: M05.79 Rheumatoid arthritis with rheumatoid factor of multiple sites without organ or systems involvement (principal)
CPT/HCPCS: 36415; 80053; 85025; 85652; 86140

== ENCOUNTER 2019-11-03 17:21 | Outpatient (RCR) | payer OTHER, SELFPAY ==
[2019-11-03 18:59] VITALS: BMI 33.9
== END 2019-11-19 23:59 ==
LOC: NS 17:21
PROVIDERS: PCP Family Medicine Geriatric Medicine; Visit Provider Family Medicine Geriatric Medicine
DX: Z71.3 Dietary counseling and surveillance (principal); R73.03 Prediabetes
CPT/HCPCS: G9891

== ENCOUNTER → 2019-11-19 11:43 | Outpatient (CLI) | payer OTHER, SELFPAY ==
[2019-11-03 18:59] VITALS: BMI 33.9
[2019-11-19 12:21] LABS: Absolute Lymphocyte Count 2.05 X10^3/uL (0.83-4.51); Absolute Neutrophil Count 3.6 X10^3/uL (2.0-7.7); Basophil# 0.02 X10^3/uL; Basophil% 0.3 % (0-1); Eosinophil# 0.03 X10^3/uL; Eosinophils% 0.5 % (0-5); Hematocrit 40.7 % (37-47); Hemoglobin 13.6 g/dL (12.0-15.0); Lymphocyte # 2.05 X10^3/ul (4.0); Lymphocyte % 33.1 % (19-41); Mean Corp Hgb Conc 33.4 g/dL (32-36); Mean Corpuscular Hgb 32.2 pg (27.0-32.0); Mean Corpuscular Volume 96.2 fL (81-99); Mean Platelet Vol. 8.5 fl (6.2-12.0); Monocyte# 0.49 X10^3/uL; Monocyte% 7.9 % (0-10); NRBC Flagged by Analyzer 0 % (0-5); Neutrophil # 3.55 X10^3/uL (2.7-7.7); Neutrophil % 57.4 % (47-70); Platelet Count 342 K/mm3 (150-450); RBC Distribution Width CV 13.4 % (11.6-14.6); RBC Distribution Width SD 47.6 fl (35.1-43.9); Red Blood Count 4.23 M/mm3 (4.2-5.4); White Blood Count 6.2 K/mm3 (4.4-11.0)
[2019-11-19 13:10] LABS: AST(SGOT) 21 U/L (15-37); Alanine Aminotransfer ALT/SGPT 27 U/L (13-56); Albumin, Serum 3.5 g/dL (3.2-5.0); Alkaline Phosphatase 68 U/L (45-117); Anion Gap 5 (5-15); BUN 14 mg/dL (7-18); BUN/Creat Ratio 15.9 RATIO (10-20); Calcium,Total 9.1 mg/dL (8.5-10.1); Chloride 105 mmol/L (98-107); Creatinine, Serum 0.88 mg/dL (0.55-1.02); EST Glomerular Filtration Rate 70 mL/min (>60); Est Glom Filt Rate - Afr Amer 84 mL/min (>60); Globulin 3.5 g/dL (2.2-4.2); Glucose 97 mg/dL (74-106); Potassium 3.7 mmol/L (3.5-5.1); Sodium Level 138 mmol/L (136-145); Thyroid Stim Hormone (TSH) 2.64 uIU/mL (0.358-3.74)
== END ==
PROVIDERS: PCP Family Medicine Geriatric Medicine; Visit Provider Family Medicine Geriatric Medicine
DX: R53.83 Other fatigue (principal); E55.9 Vitamin D deficiency, unspecified
CPT/HCPCS: 36415; 80053; 82306; 84443; 85025

== ENCOUNTER → 2019-12-08 10:27 | Outpatient (CLI) | payer OTHER, SELFPAY ==
[2019-12-01 18:52] VITALS: BMI 33.9
--- NOTE | 2019-12-08 10:29 | RAD_ITS ---
STUDY: X-RAY - LEFT WRIST REASON FOR EXAM: Female, 59 years old. LT WRIST PAIN, REDNESS. HX FALL. R/O CELLULITIS TECHNIQUE: 3 view(s) of the wrist were obtained. COMPARISON: December 27, 2015 left hand x-ray FINDINGS: There is a prior ulnar styloid process fracture. There is mild narrowing of the radiocarpal joint. Normal distal radioulnar articulation. There is a well-corticated calcific density dorsal to the wrist stable since prior study. This may represent prior injury and/or osteophyte. There is degenerative arthrosis of the carpal articulations, at the scaphoid trapezium joint space.. Normal carpometacarpal articulation of the thumb. Normal second through fifth carpometacarpal articulations. Normal visualized metacarpal bones. The soft tissue structures are unremarkable. RAD/Wrist min 3 Views IMPRESSION: Findings as detailed above most consistent with either prior trauma or degenerative change. If pain persists. Consider MRI for further evaluation. Electronically Signed: Shelly Dumont MD at 4:02 EDT Tel , Service support ,
== END ==
PROVIDERS: PCP Family Medicine Geriatric Medicine; Referring Provider Family Medicine Geriatric Medicine; Visit Provider Family Medicine Geriatric Medicine
DX: M25.532 Pain in left wrist (principal)
CPT/HCPCS: 73110

== ENCOUNTER 2019-12-15 17:30 | Outpatient (RCR) | payer OTHER, SELFPAY ==
[2019-11-20 17:30] VITALS: BMI 32.8
[2019-12-01 18:52] VITALS: BMI 33.9
[2019-12-15 18:16] VITALS: BMI 34.5
== END 2019-12-20 23:59 ==
LOC: NS 17:30
PROVIDERS: PCP Family Medicine Geriatric Medicine; Visit Provider Family Medicine Geriatric Medicine
DX: Z71.3 Dietary counseling and surveillance (principal); R73.03 Prediabetes
CPT/HCPCS: G9879; G9891

== ENCOUNTER 2020-01-12 17:00 | Outpatient (RCR) | payer OTHER, SELFPAY | END 2020-01-19 23:59 | LOC: NS 17:00 | PROVIDERS: PCP Family Medicine Geriatric Medicine; Visit Provider Family Medicine Geriatric Medicine | DX: Z71.3 Dietary counseling and surveillance (principal); E66.9 Obesity, unspecified; Z68.34 Body mass index [BMI] 34.0-34.9, adult; R73.03 Prediabetes | CPT/HCPCS: 97802; 97803 ==

== ENCOUNTER 2020-02-09 17:00 | Outpatient (RCR) | payer OTHER, SELFPAY ==
[2020-01-20 10:14] VITALS: BMI 35.4
== END 2020-02-19 23:59 ==
LOC: NS 17:00
PROVIDERS: PCP Family Medicine Geriatric Medicine; Visit Provider Family Medicine Geriatric Medicine
DX: Z71.3 Dietary counseling and surveillance (principal); E66.9 Obesity, unspecified; Z68.34 Body mass index [BMI] 34.0-34.9, adult; R73.03 Prediabetes
CPT/HCPCS: 97803

== ENCOUNTER 2020-03-08 17:00 | Outpatient (RCR) | payer OTHER, SELFPAY ==
[2020-01-20 10:14] VITALS: BMI 35.4
== END 2020-03-21 23:59 ==
LOC: NS 17:00
PROVIDERS: PCP Family Medicine Geriatric Medicine; Visit Provider Family Medicine Geriatric Medicine
DX: Z71.3 Dietary counseling and surveillance (principal); E66.9 Obesity, unspecified; Z68.34 Body mass index [BMI] 34.0-34.9, adult; R73.03 Prediabetes
CPT/HCPCS: 97803

== ENCOUNTER → 2020-03-11 14:44 | Outpatient (CLI) | payer OTHER, SELFPAY ==
[2020-01-20 10:14] VITALS: BMI 35.4
--- NOTE | 2020-03-11 14:45 | CT_ITS ---
STUDY: LOW DOSE CT LUNG CANCER SCREENING REASON FOR EXAM: Female, 60 years old. Tobacco use, smoker 1 pack por day x 43 years, COPD. RADIATION DOSAGE (If Supplied By Facility): CTDIvol = ( 3.40 ) mGy, DLP = ( 115.71 ) mGycm TECHNIQUE: No contrast was administered. Low dose technique was utilized (average mAS-38 and kVp 120). 1.25 mm axial source images with a slice interval of 1.25-mm were reconstructed in lung windows. 2.5 mm axial source images with a slice interval of 2.5-mm were reconstructed in lung windows. 5.0 mm axial source images with a slice interval of 5.0-mm were reconstructed in soft tissue windows. Nodule measured using lung windows on PACS and/or independent workstation with automated measurement of minimum and maximum diameter. Nodule measurement reported as average diameter rounded to the nearest whole number. Growth is defined as an increase ins size of greater than 1.5 mm. COMPARISON: Comparison is made with prior study dated 11/11/2018. NODULES: No suspicious nodules are seen. Emphysema: Emphysematous changes. Stable focal liver groundglass changes in the anterior segment of the right upper lobe. Minimal degree of bronchiectatic changes with cyst formation. This most likely represents an area of scarring. Endobronchial lesion: None Aorta: Unremarkable Coronary arteries: Coronary artery calcification. Heart: Unremarkable Mediastinal nodes: Small benign-appearing mediastinal lymph nodes. Other chest and abdominal findings: Degenerative changes of the thoracic spine. CT/Low Dose CT Lung Screening IMPRESSION: Lung-RADS category 2 - Continue annual screening with LDCT in 12 months. IMPORTANT NOTES FOR USE: ACR Lung-RADS Version 1.0 Assessment Categories Release Date: June 16, 2013 Category: Coded 0-4 bases on nodule(s) with highest degree of suspicion. Negative screen is defined as categories 1 and 2; a positive screen is defined as categories 3 and 4. Category 3 and 4A nodules that are unchanged on interval CT should be coded as category 2, and individuals returned to screening in 12 months. Category 4X: Category 3 or 4 nodules with additional imaging findings that increase the suspicion of lung cancer, such as spiculation, GGN that doubles in size in 1 year, enlarged lymph notes, etc. Category Modifiers: S (significant finding unrelated to lung cancer) and C (prior history of treated lung cancer) may be added to the 0-4 Lung-RADS Electronically Signed: Beny Schwab MD at 9:22 EST , Service support ,
== END ==
PROVIDERS: PCP Family Medicine Geriatric Medicine; Referring Provider Internal Medicine Critical Care Medicine; Visit Provider Internal Medicine Critical Care Medicine
DX: R91.1 Solitary pulmonary nodule (principal); J44.9 Chronic obstructive pulmonary disease, unspecified; Z72.0 Tobacco use
CPT/HCPCS: 71271

== ENCOUNTER → 2020-03-30 16:20 | Outpatient (CLI) | payer OTHER, SELFPAY ==
[2020-03-15 14:12] VITALS: BMI 36.4
--- NOTE | 2020-03-30 16:32 | RAD_ITS ---
STUDY: X-RAY - RIGHT HAND REASON FOR EXAM: Female, 60 years old. Hand pain. History of rheumatoid arthritis. TECHNIQUE: 2 view(s) of the hand. COMPARISON: 12/27/2015. FINDINGS: Normal radiocarpal articulation. Normal distal radioulnar joint. Normal visualized carpal bones. There is degenerative joint disease of the scaphotrapezium / trapezoid articulation. The remainder of the carpal articulations are normal. Normal carpometacarpal articulation of the thumb. Normal second through fifth carpometacarpal joints. Normal metacarpi. Normal metacarpophalangeal joint of the thumb. Normal interphalangeal joint of the thumb. Normal proximal and distal phalanges of the thumb. Normal metacarpophalangeal joints of the second through fifth fingers. Normal proximal and distal interphalangeal joints of the second through fifth fingers. Normal phalanges of the second through fifth fingers. The soft tissue structures are unremarkable. RAD/Hand 2 Views IMPRESSION: Minimal degenerative changes of the rest. There is no major interval change when compared to the earlier study. Electronically Signed: Andrew Burgess DO at 21:58 EST Tel [phone], Service support ,
--- NOTE | 2020-03-30 16:32 | RAD_ITS ---
STUDY: X-RAY - LEFT HAND REASON FOR EXAM: Female, 60 years old. History of rheumatoid arthritis. Hand pain without trauma. TECHNIQUE: 2 view(s) of the hand. COMPARISON: 12/27/2015. FINDINGS: Normal radiocarpal articulation. Normal distal radioulnar joint. Normal visualized carpal bones. Normal carpal articulations Normal carpometacarpal articulation of the thumb. Normal second through fifth carpometacarpal joints. Normal metacarpi. Normal metacarpophalangeal joint of the thumb. Normal interphalangeal joint of the thumb. Normal proximal and distal phalanges of the thumb. Normal metacarpophalangeal joints of the second through fifth fingers. Normal proximal and distal interphalangeal joints of the second through fifth fingers. Normal phalanges of the second through fifth fingers. The soft tissue structures are unremarkable. RAD/Hand 2 Views IMPRESSION: Normal x-ray examination of the hand. No major interval change. Electronically Signed: Andrew Burgess DO at 21:58 EST Tel [phone], Service support ,
[2020-03-30 18:09] LABS: Absolute Lymphocyte Count 2.19 X10^3/uL (0.83-4.51); Basophil# 0.03 X10^3/uL; Basophil% 0.4 % (0-1); Eosinophil# 0.07 X10^3/uL; Hematocrit 41.4 % (37-47); Hemoglobin 13.7 g/dL (12.0-15.0); Lymphocyte # 2.19 X10^3/ul (4.0); Lymphocyte % 31.7 % (19-41); Mean Corp Hgb Conc 33.1 g/dL (32-36); Mean Corpuscular Volume 93.7 fL (81-99); Mean Platelet Vol. 8.7 fl (6.2-12.0); Monocyte# 0.52 X10^3/uL; Monocyte% 7.5 % (0-10); NRBC Flagged by Analyzer 0 % (0-5); Neutrophil # 4.03 X10^3/uL (2.7-7.7); Neutrophil % 58.4 % (47-70); Platelet Count 385 K/mm3 (150-450); RBC Distribution Width CV 12.6 % (11.6-14.6); RBC Distribution Width SD 43.8 fl (35.1-43.9); Red Blood Count 4.42 M/mm3 (4.2-5.4); White Blood Count 6.9 K/mm3 (4.4-11.0)
[2020-03-30 18:19] LABS: Erythrocyte Sedimentation Rate 8 mm/hr (0-30)
[2020-03-30 18:43] LABS: AST(SGOT) 19 U/L (15-37); Alanine Aminotransfer ALT/SGPT 28 U/L (13-56); Albumin, Serum 3.7 g/dL (3.2-5.0); Alkaline Phosphatase 77 U/L (45-117); Bilirubin, Direct 0.09 mg/dL (0.00-0.30); CRP < 2.90 mg/L (0.0-3.0); Creatinine, Serum 0.99 mg/dL (0.55-1.02); EST Glomerular Filtration Rate 61 mL/min (>60); Est Glom Filt Rate - Afr Amer 74 mL/min (>60); Globulin 3.7 g/dL (2.2-4.2); Protein, Total 7.4 g/dL (6.4-8.2)
== END ==
PROVIDERS: PCP Family Medicine Geriatric Medicine
DX: M05.79 Rheumatoid arthritis with rheumatoid factor of multiple sites without organ or systems involvement (principal); Z79.899 Other long term (current) drug therapy
CPT/HCPCS: 36415; 73120; 80076; 82565; 85025; 85652; 86140

== ENCOUNTER 2020-04-13 14:00 | Outpatient (RCR) | payer OTHER, SELFPAY ==
[2020-03-15 14:12] VITALS: BMI 36.4
== END 2020-04-18 23:59 ==
LOC: NS 14:00
PROVIDERS: PCP Family Medicine Geriatric Medicine; Visit Provider Family Medicine Geriatric Medicine
DX: Z71.3 Dietary counseling and surveillance (principal); E66.9 Obesity, unspecified; Z68.34 Body mass index [BMI] 34.0-34.9, adult; R73.03 Prediabetes
CPT/HCPCS: 97803

== ENCOUNTER 2020-04-26 16:33 | Outpatient (RCR) | payer OTHER, SELFPAY ==
[2020-03-15 14:12] VITALS: BMI 36.4
== END 2020-05-19 23:59 ==
LOC: NS 16:33
PROVIDERS: PCP Family Medicine Geriatric Medicine; Visit Provider Family Medicine Geriatric Medicine
DX: Z71.3 Dietary counseling and surveillance (principal); E66.9 Obesity, unspecified; R73.03 Prediabetes; Z68.34 Body mass index [BMI] 34.0-34.9, adult
CPT/HCPCS: 97803

== ENCOUNTER 2020-05-31 17:19 | Outpatient (RCR) | payer OTHER, SELFPAY ==
[2020-03-15 14:12] VITALS: BMI 36.4
== END 2020-06-18 23:59 ==
LOC: NS 17:19
PROVIDERS: PCP Family Medicine Geriatric Medicine; Visit Provider Family Medicine Geriatric Medicine
DX: Z71.3 Dietary counseling and surveillance (principal); E66.9 Obesity, unspecified; Z68.34 Body mass index [BMI] 34.0-34.9, adult; R73.03 Prediabetes
CPT/HCPCS: 97803

== ENCOUNTER 2020-06-21 17:38 | Outpatient (RCR) | payer OTHER, SELFPAY ==
[2020-06-11 17:04] VITALS: BMI 37.0
== END 2020-06-21 23:59 | disposition home or self-care (01) ==
LOC: NS 17:38
PROVIDERS: PCP Family Medicine Geriatric Medicine; Visit Provider Family Medicine Geriatric Medicine
DX: Z71.3 Dietary counseling and surveillance (principal); E66.9 Obesity, unspecified; Z68.37 Body mass index [BMI] 37.0-37.9, adult; R73.03 Prediabetes
CPT/HCPCS: 97803

== ENCOUNTER → 2020-07-09 15:59 | Outpatient (CLI) | payer OTHER, SELFPAY ==
[2020-06-11 17:04] VITALS: BMI 37.0
[2020-07-09 17:20] LABS: Absolute Lymphocyte Count 2.21 X10^3/uL (0.83-4.51); Absolute Neutrophil Count 4.2 X10^3/uL (2.0-7.7); Basophil# 0.02 X10^3/uL; Basophil% 0.3 % (0-1); Eosinophil# 0.09 X10^3/uL; Eosinophils% 1.3 % (0-5); Hematocrit 40.5 % (37-47); Hemoglobin 13.3 g/dL (12.0-15.0); Lymphocyte # 2.21 X10^3/ul (0.83-4.51); Lymphocyte % 30.7 % (19-41); Mean Corp Hgb Conc 32.8 g/dL (32-36); Mean Corpuscular Hgb 30.8 pg (27.0-32.0); Mean Corpuscular Volume 93.8 fL (81-99); Monocyte# 0.59 X10^3/uL; Monocyte% 8.2 % (0-10); NRBC Flagged by Analyzer 0 % (0-5); Neutrophil # 4.24 X10^3/uL (2.7-7.7); Neutrophil % 58.8 % (47-70); Platelet Count 349 K/mm3 (150-450); RBC Distribution Width CV 14.5 % (11.6-14.6); Red Blood Count 4.32 M/mm3 (4.2-5.4); White Blood Count 7.2 K/mm3 (4.4-11.0)
[2020-07-09 17:30] LABS: Erythrocyte Sedimentation Rate 9 mm/hr (0-30)
[2020-07-09 17:43] LABS: AST(SGOT) 23 U/L (15-37); Alanine Aminotransfer ALT/SGPT 29 U/L (13-56); Albumin, Serum 3.6 g/dL (3.2-5.0); Alkaline Phosphatase 82 U/L (45-117); Bilirubin, Direct 0.13 mg/dL (0.00-0.30); CRP < 2.90 mg/L (0.0-3.0); Creatinine, Serum 1.11 mg/dL (0.55-1.02); EST Glomerular Filtration Rate 53 mL/min (>60); Est Glom Filt Rate - Afr Amer 65 mL/min (>60); Globulin 3.4 g/dL (2.2-4.2)
== END ==
PROVIDERS: PCP Family Medicine Geriatric Medicine
DX: M05.79 Rheumatoid arthritis with rheumatoid factor of multiple sites without organ or systems involvement (principal); Z79.899 Other long term (current) drug therapy
CPT/HCPCS: 36415; 80076; 82565; 85025; 85652; 86140

== ENCOUNTER → 2020-09-02 06:43 | Outpatient (CLI) | payer OTHER, SELFPAY ==
[2020-03-15 14:12] VITALS: BMI 36.4
[2020-06-11 17:04] VITALS: BMI 37.0
--- NOTE | 2020-09-03 10:40 | PFT ---
INTRODUCTION: The patient is a 60-year-old female that presents for pulmonary function studies secondary to a diagnosis of COPD. Respiratory therapy reports good patient effort. Bronchodilators were used during testing. INTERPRETATION: Forced expiration spirometry demonstrates the presence of a moderately severe large airways obstructive ventilatory defect. There was a significant response to aerosolized bronchodilators. Spirograms are of good quality but do not plateau indicating slow emptying of the lungs. Body plethysmography was performed and revealed an elevated TLC and RV, indicative of underlying hyperinflation and air trapping. Diffusing capacity by single breath CO was mildly reduced at 73% of predicted. IMPRESSION: Partially reversible moderately severe large airways obstructive ventilatory defect with associated hyperinflation, air trapping and mild reduction in diffusing capacity.
== END ==
PROVIDERS: PCP Family Medicine Geriatric Medicine; Referring Provider Nurse Practitioner Acute Care; Visit Provider Nurse Practitioner Acute Care
DX: J44.9 Chronic obstructive pulmonary disease, unspecified (principal)
CPT/HCPCS: 94060; 94726; 94729

== ENCOUNTER → 2020-10-27 | Outpatient (CLI) | payer OTHER, SELFPAY | END | disposition home or self-care (01) | PROVIDERS: Referring Provider Physician Assistant; Visit Provider Physician Assistant | DX: Z11.52 Encounter for screening for COVID-19 (principal) | CPT/HCPCS: 87635; U0005; U0003 ==

== ENCOUNTER → 2020-11-04 15:56 | Outpatient (CLI) | payer OTHER, SELFPAY ==
[2020-11-04 17:22] LABS: Absolute Lymphocyte Count 1.79 X10^3/uL (0.83-4.51); Absolute Neutrophil Count 4.4 X10^3/uL (2.0-7.7); Basophil# 0.02 X10^3/uL; Basophil% 0.3 % (0-1); Eosinophil# 0.04 X10^3/uL; Eosinophils% 0.6 % (0-5); Hematocrit 41.9 % (37-47); Hemoglobin 14.1 g/dL (12.0-15.0); Lymphocyte # 1.79 X10^3/ul (0.83-4.51); Lymphocyte % 25.6 % (19-41); Mean Corp Hgb Conc 33.7 g/dL (32-36); Mean Corpuscular Hgb 31.7 pg (27.0-32.0); Mean Corpuscular Volume 94.2 fL (81-99); Monocyte# 0.66 X10^3/uL; Monocyte% 9.4 % (0-10); NRBC Flagged by Analyzer 0 % (0-5); Neutrophil # 4.41 X10^3/uL (2.7-7.7); Neutrophil % 63.1 % (47-70); Platelet Count 315 K/mm3 (150-450); RBC Distribution Width CV 13.4 % (11.6-14.6); RBC Distribution Width SD 46.2 fl (35.1-43.9); Red Blood Count 4.45 M/mm3 (4.2-5.4)
[2020-11-04 17:56] LABS: AST(SGOT) 16 U/L (15-37); Alanine Aminotransfer ALT/SGPT 32 U/L (13-56); Albumin, Serum 3.5 g/dL (3.2-5.0); Alkaline Phosphatase 73 U/L (45-117); Bilirubin, Direct 0.11 mg/dL (0.00-0.30); CRP 6.45 mg/L (0.0-3.0); Creatinine, Serum 0.94 mg/dL (0.55-1.02); EST Glomerular Filtration Rate 65 mL/min (>60); Erythrocyte Sedimentation Rate 9 mm/hr (0-30); Est Glom Filt Rate - Afr Amer 78 mL/min (>60); Globulin 3.8 g/dL (2.2-4.2); Protein, Total 7.3 g/dL (6.4-8.2)
== END ==
PROVIDERS: PCP Family Medicine Geriatric Medicine
DX: M05.79 Rheumatoid arthritis with rheumatoid factor of multiple sites without organ or systems involvement (principal); Z79.899 Other long term (current) drug therapy
CPT/HCPCS: 36415; 80076; 82565; 85025; 85652; 86140

== ENCOUNTER → 2020-11-10 | Outpatient (CLI) | payer OTHER, SELFPAY | END | disposition home or self-care (01) | LOC: LABSPEC 15:40 | PROVIDERS: PCP Family Medicine Geriatric Medicine; Visit Provider Family Medicine Geriatric Medicine | DX: N39.0 Urinary tract infection, site not specified (principal) | CPT/HCPCS: 87077; 87086; 87088; 87186 ==

== ENCOUNTER → 2020-11-29 07:14 | Outpatient (CLI) | payer OTHER, SELFPAY | PROVIDERS: PCP Family Medicine Geriatric Medicine; Referring Provider Family Medicine Geriatric Medicine; Visit Provider Family Medicine Geriatric Medicine | DX: R53.83 Other fatigue (principal) | CPT/HCPCS: 36415; 84443 ==

== ENCOUNTER → 2020-12-10 10:44 | Outpatient (CLI) | payer OTHER, SELFPAY ==
--- NOTE | 2020-12-10 10:45 | RAD_ITS ---
STUDY: X-RAY - LEFT HAND REASON FOR EXAM: Chronic pain in the third metacarpophalangeal joint area, rheumatoid arthritis and trigger finger. TECHNIQUE: 3 view(s) of the hand. COMPARISON: Radiographs 03/30/2020. FINDINGS: Normal radiocarpal articulation. Normal distal radioulnar joint. Normal visualized carpal bones. Normal carpal articulations There is mild joint space narrowing of the carpometacarpal articulation of the thumb. Normal second through fifth carpometacarpal joints. Normal metacarpi. Normal metacarpophalangeal joint of the thumb. Normal interphalangeal joint of the thumb. Normal proximal and distal phalanges of the thumb. Normal metacarpophalangeal joints of the second through fifth fingers. Normal proximal and distal interphalangeal joints of the second through fifth fingers. Normal phalanges of the second through fifth fingers. The soft tissue structures are unremarkable. RAD/Hand Min 3 Views IMPRESSION: Mild arthrosis of the first carpometacarpal articulation. Otherwise, unremarkable x-ray examination of the left hand. Electronically Signed: Reji Preston MD at 12:34 EDT Tel , Service support ,
== END ==
PROVIDERS: PCP Family Medicine Geriatric Medicine; Referring Provider Orthopaedic Surgery; Visit Provider Orthopaedic Surgery
DX: M65.332 Trigger finger, left middle finger (principal); M79.642 Pain in left hand
CPT/HCPCS: 73130

== ENCOUNTER 2020-12-28 05:36 | Day surgery (SDC) | payer OTHER, SELFPAY ==
[2020-12-28 06:34] VITALS: BP 121/66; PULSE 75; RESP 18; TEMP 36.4; O2SAT 100; BMI 39.6
[2020-12-28] MEDS: Lactated Ringers 1,000 ML 100 ML IV (06:44)
--- NOTE | 2020-12-28 07:20 | HP.PCM_ITS ---
History and Physical Date of Admission: 12/28/20 Date of Service: 12/10/20 MR#:[id number]:[id number]: LAUREN MALDONADO #:[id number] Provider:Dr. Walter Kovacs, Age/Sex: 60/F Location:[facility]:Signed Intake Intake Visit Reasons: Lt hand Allergies adalimumab [From Humira] Allergy (Verified 12/10/20 10:27) Rash Penicillins Allergy (Verified 12/10/20 10:27) Rash tramadol Adverse Reaction (Verified 12/10/20 10:27) FEELING OF CONFUSION Medications hydroxychloroquine 200 mg PO BIDCM 05/18/16 [History Confirmed 12/10/20] omeprazole 40 mg PO DAILY 05/18/16 [History Confirmed 12/10/20] paroxetine HCl 20 mg tablet 20 mg PO DAILY 04/29/18 [History Confirmed 12/10/20] potassium citrate 15 mEq (1,620 mg) tablet,extended release 20 meq PO DAILY tab 12/17/18 [History Confirmed 12/10/20] albuterol sulfate 2.5 mg INHALATION Q6H PRN #180 ml 02/28/19 [Rx Confirmed 12/10/20] albuterol sulfate 90 mcg/actuation aerosol inhaler 1 - 2 puff INHALATION Q6H PRN PRN #18 g 09/01/19 [Rx Confirmed 12/10/20] fluticasone fur. 100 mcg-umeclid 62.5 mcg-vilant 25 mcg inhalat.powder 1 inh INHALATION DAILY #60 ea 06/02/20 [Rx Confirmed 12/10/20] bupropion HCl 150 mg tablet,12 hr sustained-release 150 mg PO DAILY 07/02/20 [History Confirmed 12/10/20] diphenhydramine HCl 50 mg capsule 50 mg PO QHS 07/02/20 [History Confirmed 12/10/20] loratadine 10 mg capsule 10 mg PO DAILY 07/02/20 [History Confirmed 12/10/20] abatacept 50 mg/0.4 mL subcutaneous syringe 50 mg SUBCUT QWEEK ml 12/10/20 [History Confirmed 12/10/20] methotrexate sodium 5 mg tablet See Rx Instructions PO QWEEK 12/10/20 [History Confirmed 12/10/20] [facility] Medical History (Updated 10/22/20 @ 17:30 by Mick CARABALLO, PA) Acute maxillary sinusitis Allergic rhinitis Bicipital tendinitis of right shoulder Bursitis of right shoulder Cervical radiculopathy Cervicalgia COPD (chronic obstructive pulmonary disease) Depression Family history of alcoholism GERD (gastroesophageal reflux disease) Hyperlipidemia Incontinence Limb weakness TAMRA (obstructive sleep apnea) Rheumatoid arthritis Rotator cuff syndrome Segmental and somatic dysfunction of lumbar region Segmental and somatic dysfunction of thoracic region Shortness of breath Spontaneous rupture of extensor tendons, right forearm Tobacco abuse Surgical History h/o trigger finger release History of appendectomy History of laparoscopic cholecystectomy History of surgery on arm Family History Mother COPD (chronic obstructive pulmonary disease) Heart disease Osteoarthritis TAMRA (obstructive sleep apnea) Father Cancer throat Social History Smoking Status: Current every day smoker Tobacco: How many years used: 35 second hand exposure: Yes alcohol intake: current substance use type: does not use caffeine: Yes what type of physical activity do you participate in: none HPI Lt hand Details: Parts of this documentation were recorded by a scribe, this documentation accurately reflects the service provided and the decisions made by me, Dr. Walter Kovacs, DO 12/10/20 0990. LAUREN MALDONADO is a 60 year old F here today for a repeat injection. Patient is having some pain and usually has to raise her hand to decrease the throbbing. Patient states she is now beginning to drop items and her hand is now weaker than before. Patient is taking ibuprofen 800mg with her pain flares as well as using ice packs. Patient states if she uses a immobilizing brace, her pain becomes severe. She states that biggest problem of the hand is the trigger finger of the middle finger. SHe does have occasional electrical pains of the hand at times. 07/02/2020 patient had a left middle finger A1 hiram injection. Patient voiced the injection lasted approx one month. Patient voiced she had relief immediately after the injection. With pain fully returning in October. SHe did states that she waks up in the mornings with her hand numb and will have to shake the hand out. Ortho Exam General General: Yes no acute distress Neurologic: Yes alert and Yes oriented x3 Psychologic: Yes reasonable and appropriate Left Wrist/Hand A1 hiram trigger: Yes Left Wrist: Yes ROM-Extension 0-60, Yes ROM-Flexion 0-80, Yes ROM-Pronation 0-8 0, Yes ROM-Supination 0-90, Yes Tinel's, Yes Phalen's, Yes CMC Grind (pain and crepitation) and Yes tender to palpate carpometacarpal joint; No Durken's Test, No Froment's, No Tender to palpate triangular fibrocartilage complex, No Distal radioulnar joint, No tender to palpate 1st dorsal compartment, No Thenar Atrophy and No Hypothenar Atrophy WRIST: tinels cuases pain into the hand/fingers triggering of the left middle finger Supplemental Info 03/30/20 xray left hand: Normal x-ray examination of the hand. December 08, 2019 x-ray left wrist there is moderate first CMC joint arthrosis with subluxation there is also scaphoid trapezial arthrosis, well corticated calcific density seen dorsal wrist degenerative arthrosis of the carpal articulations 09/08/2015 EMG upper extremities: Relative slowing of right median nerve Coding Level of Care Code Off vis,est,level 3 Diagnoses Trigger finger, left middle finger M65.332 Assessment and Plan Assessment and Plan (1) Trigger finger, left middle finger: Status: Acute Orders: Orders: Hand Min 3 Views Today Plan - Dr. Walter Kovacs, DO: Patient educated that she does have a palpable trigger finger of the left middle finger. Treatment for this is do nothing or steroid injection or A1 hiram release. She wishes to hold off on any work-up of carpal tunnel as her symptoms are mild and intermittent. 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 Patient does wish to proceed with an A1 hiram release of the left middle finger. She wishes to wait until the end of December to have the surgery. Tentatively scheduled for January 18 2021. Follow up 2 weeks post opor sooner if pain, swelling, numbness or associated symptoms, or concerns develop. All questions answered. Patient in agreement of plan. Plan Details Other Orders: Orders: Hand Min 3 Views Today M79.642 12/10/20 1118<Electronically signed by Walter Kovacs DO>Date Walter Kovacs DO I have re-examined the patient. There are no clinical changes since date of exam
[2020-12-28] MEDS: Cefazolin 2 GM in 0.9% Normal Saline 100 ML IV (07:21)
[2020-12-28] MEDS: Bupivacaine 0.25% 30 ML Vial (07:34)
--- NOTE | 2020-12-28 07:51 | PCM.OPRPT ---
Report of Operation Date of Procedure: 12/28/20 Description of Surgical Findings:: Preoperative diagnosis; left third digit trigger finger Postoperative diagnosis; same Procedure: Left third digit A1 hiram release Anesthesia: Local with MAC Tourniquet time; 10 minutes 250 mm Hg Complications: None Indication for procedure; This is a 60-year-old female with symptoms consistent with trigger finger. Risks benefits and alternatives were reviewed including risks of bleeding infection nerve tendon tissue damage need for further surgery and continued pain and symptoms, hypersensitivity to scar/incision and recurrence. Procedure; The patient was met in the preoperative holding area the operative extremity was identified by both patient and physician and was marked the patient was met by anesthesia and brought back to the operating room and transferred to the operating table in the supine position. Aanesthesia was started. A well-padded tourniquet was placed on the operative upper extremity. The patient was prepped and draped in the usual sterile fashion. A timeout was called to ensure the proper patient procedure and extremity were being contemplated. 0.5 percent Marcaine was injected into the incisional area. Esmarch was used tourniquet was inflated. 15 blade scalpel was used to make a longitudinal incision directly over the A1 hiram was carried down through the subcutaneous tissue Parish retractors placed radial and ulnar protecting the digital nerves and a Ragnell retractor was used at the apex of the incision under direct visualization a deep blade scalpel was used to release the A1 hiram. The wound was thoroughly irrigated and closed with 4-0 nylon vertical mattress edges. Dressing was applied in the form of Xeroform 4 x 4 web roll and an Greg wrap. Patient tolerated the procedure well was brought back to the PACU in stable condition.
--- NOTE | 2020-12-28 07:52 | EX.PCM.DISCH ---
Discharge Instructions Diet Discharge Diet: No restrictions Dressing / Incision Call your doctor if you observe: Shortness of breath and Chest pain Additional Dressing/Incision Instructions:: Ice and elevate operative extremity next 72 hours. Keep dressing on clean and dry for 48 hours then may remove and allow warm soapy water to rinse over incision but do not submerge until sutures are out. Then apply bandaid over incision and change daily. encourage finger range of motion. Not lift more than 1/2 pound. Minimize narcotic use only as needed and directed, may use OTC NSAID and Tylenol to supplement/substitute for pain control. Follow Up Care Please Follow Up With: Walter Kovacs DO When: 2 weeks Test Results: Test results from this visit will be discussed in further detail at your follow-up appointment, if applicable. Discharge Plan Admission Attending Provider: Walter Kovacs Primary Care Provider: Leon Pinto Chi Discharge Orders/Prescriptions Prescriptions: New oxycodone 5 mg tablet 2.5 - 5 mg PO Q4H PRN (Reason: pain) 2 Days Qty: 7 RF: 0 No Action paroxetine HCl 20 mg tablet 20 mg PO DAILY RF: 0 albuterol sulfate 90 mcg/actuation HFA aerosol inhaler 1 - 2 puff INHALATION Q6H PRN PRN (Reason: Sob &/Or Wheezing) Qty: 18 RF: 6 bupropion HCl 150 mg tablet sustained-release 12 hr 150 mg PO DAILY RF: 0 loratadine 10 mg capsule 10 mg PO DAILY RF: 0 diphenhydramine HCl [Sleep Aid (diphenhydramine)] 50 mg capsule 50 mg PO QHS RF: 0 Orencia 50 mg/0.4 mL syringe 50 mg subcut QWEEK RF: 0 methotrexate sodium 5 mg tablet See Rx Instructions PO QWEEK RF: 0 omeprazole 40 MG capsule 40 mg PO DAILY RF: 0 hydroxychloroquine 200 MG tablet 200 mg PO BIDCM RF: 0 potassium citrate 15 mEq tablet extended release 20 meq PO DAILY RF: 0 ibuprofen 200 mg Tablet 400 mg PO Q6H PRN (Reason: PAIN) RF: 0 Myrbetriq 25 mg Tablet Extended Release 24 Hr 25 mg PO DAILY RF: 0 albuterol sulfate 2.5 mg /3 mL (0.083 %) solution for nebulization 2.5 mg INHALATION Q6H PRN (Reason: Wheezing) Qty: 180 RF: 3 Trelegy Ellipta 100-62.5-25 mcg blister with device 1 inh INHALATION DAILY Qty: 60 RF: 11 Referrals / Follow Up: Leon Pinto Chi, MD [Primary Care Provider] - Disposition Disposition (needs filled in before D/C Order can be placed): Home, Self Care
[2020-12-28 07:57] VITALS: BP 111/76; BP 121/66; PULSE 76; RESP 16; TEMP 36.8; O2SAT 95
[2020-12-28 08:00] VITALS: BP 116/66; BP 121/66; PULSE 74; RESP 16; O2SAT 95
[2020-12-28 08:05] VITALS: BP 102/69; BP 121/66; PULSE 72; RESP 16; O2SAT 95
[2020-12-28 08:10] VITALS: BP 105/68; BP 121/66; PULSE 70; RESP 16; TEMP 36.4; O2SAT 95
[2020-12-28 08:33] VITALS: BP 121/66
== END 2020-12-28 09:16 | disposition home or self-care (01) ==
LOC: SDC 05:36 → AC 05:37
PROVIDERS: PCP Family Medicine Geriatric Medicine; Referring Provider Orthopaedic Surgery; Visit Provider Orthopaedic Surgery
PROC: (CPT 26055; principal; 2020-12-28 07:20)
DX: M65.332 Trigger finger, left middle finger (principal); J44.9 Chronic obstructive pulmonary disease, unspecified; F32.A Depression, unspecified; K21.9 Gastro-esophageal reflux disease without esophagitis; E78.5 Hyperlipidemia, unspecified; E78.00 Pure hypercholesterolemia, unspecified; G47.33 Obstructive sleep apnea (adult) (pediatric); G25.81 Restless legs syndrome; M06.9 Rheumatoid arthritis, unspecified; Z87.442 Personal history of urinary calculi; Z79.899 Other long term (current) drug therapy; F17.200 Nicotine dependence, unspecified, uncomplicated
CPT/HCPCS: 01810; 26055; J7120; J2405

== ENCOUNTER → 2021-02-02 15:53 | Outpatient (CLI) | payer OTHER, SELFPAY ==
[2021-02-02 17:29] LABS: Absolute Lymphocyte Count 2.06 X10^3/uL (0.83-4.51); Absolute Neutrophil Count 5.5 X10^3/uL (2.0-7.7); Basophil# 0.03 X10^3/uL; Basophil% 0.4 % (0-1); Eosinophil# 0.07 X10^3/uL; Eosinophils% 0.8 % (0-5); Hematocrit 41.7 % (37-47); Hemoglobin 13.7 g/dL (12.0-15.0); Lymphocyte # 2.06 X10^3/ul (0.83-4.51); Lymphocyte % 24.5 % (19-41); Mean Corp Hgb Conc 32.9 g/dL (32-36); Mean Corpuscular Hgb 30.8 pg (27.0-32.0); Mean Corpuscular Volume 93.7 fL (81-99); Mean Platelet Vol. 8.8 fl (6.2-12.0); Monocyte% 7.1 % (0-10); NRBC Flagged by Analyzer 0 % (0-5); Neutrophil # 5.53 X10^3/uL (2.7-7.7); Neutrophil % 65.8 % (47-70); Platelet Count 334 K/mm3 (150-450); RBC Distribution Width CV 13.2 % (11.6-14.6); RBC Distribution Width SD 45.1 fl (35.1-43.9); Red Blood Count 4.45 M/mm3 (4.2-5.4); White Blood Count 8.4 K/mm3 (4.4-11.0)
[2021-02-02 17:38] LABS: Erythrocyte Sedimentation Rate 11 mm/hr (0-30)
[2021-02-02 17:44] LABS: AST(SGOT) 14 U/L (15-37); Alanine Aminotransfer ALT/SGPT 24 U/L (13-56); Albumin, Serum 3.6 g/dL (3.2-5.0); Alkaline Phosphatase 77 U/L (45-117); Bilirubin, Direct 0.06 mg/dL (0.00-0.30); CRP 3.63 mg/L (0.0-3.0); Creatinine, Serum 0.91 mg/dL (0.55-1.02); EST Glomerular Filtration Rate 67 mL/min (>60); Est Glom Filt Rate - Afr Amer 81 mL/min (>60); Globulin 3.7 g/dL (2.2-4.2); Protein, Total 7.3 g/dL (6.4-8.2)
== END ==
PROVIDERS: PCP Family Medicine Geriatric Medicine
DX: M05.79 Rheumatoid arthritis with rheumatoid factor of multiple sites without organ or systems involvement (principal)
CPT/HCPCS: 36415; 80076; 82565; 85025; 85652; 86140

== ENCOUNTER 2021-04-08 07:36 | Outpatient (CLI) | payer OTHER, SELFPAY ==
--- NOTE | 2021-04-08 07:38 | CT_ITS ---
EXAM: CT CHEST, LUNG CANCER SCREENING WITHOUT INTRAVENOUS CONTRAST : 1960 CLINICAL INDICATION: smoker > 30 pack years TECHNIQUE: Helically acquired images were obtained of the chest without intravenous contrast using low dose (LDCT) lung cancer screening protocol. This CT exam was performed using one or more of the following dose reduction techniques: automated exposure control, adjustment of the mA and/or kV according to patient size, and/or use of iterative reconstruction technique. This report was created using [employer] report generation technology. COMPARISON: 03/11/2020 FINDINGS: LUNGS AND PLEURAL SPACES: There is a persistent area of groundglass opacity within the right upper lobe. There is a stable 4 mm nodule within the left lower lobe seen on series 2 image 158. Fleischner Society Guidelines suggest no further follow-up is necessary despite the high risk of malignancy. There is minimal scarring within the lingula. No pleural effusion or thickening. No pneumothorax. HEART: There are coronary artery calcifications. Heart size is normal. No pericardial effusion. MEDIASTINUM: Unremarkable. No mediastinal or hilar adenopathy. Esophagus is unremarkable. No hiatal hernia. THYROID: Unremarkable. No thyroid lesions. BONES/JOINTS: Unremarkable. No suspicious lytic or blastic abnormality. VASCULATURE: Unremarkable. Thoracic aorta is non-dilated. LYMPH NODES: Unremarkable. No enlarged lymph nodes. OTHER FINDINGS: CT/Low Dose CT Lung Screening IMPRESSION: 1. Stable 4 mm nodule within the left lower lobe. There is also a stable area of groundglass opacity within the right upper lobe. Scarring within the lingula. 2. Lung RADS category 2. Individualized dose optimization techniques were used for this CT. at 0814 Reported and signed by: Abimael Ochoa MD Electronically Signed: Abimael Ochoa MD at 8:13 EST ,
== END 2021-04-08 23:59 | disposition home or self-care (01) ==
LOC: CT 07:38
PROVIDERS: PCP Family Medicine Geriatric Medicine; Referring Provider Nurse Practitioner Acute Care; Visit Provider Nurse Practitioner Acute Care
DX: F17.210 Nicotine dependence, cigarettes, uncomplicated (principal)
CPT/HCPCS: 71271

== ENCOUNTER 2021-04-26 09:44 | Outpatient (CLI) | payer OTHER, SELFPAY ==
--- NOTE | 2021-04-26 09:45 | RAD_ITS ---
STUDY: X-RAY CHEST REASON FOR EXAM: Female, 61 years old. Shortness of breath TECHNIQUE: PA and lateral views of the chest. COMPARISON: Comparison is made with prior study dated 01/30/2018. FINDINGS: Hyperinflation. The lungs are clear. There is no demonstrated pleural abnormality. Normal size heart. Normal mediastinum and lisa. Normal visualized pulmonary arteries. There is atherosclerotic tortuosity of the aortic arch and descending thoracic aorta. There are diffuse degenerative changes of the visualized thoracic spine. Normal visualized ribs, clavicles, and shoulders. There is no demonstrated abnormality of the visualized soft tissue structures of the upper abdomen. RAD/Chest PA and Lateral IMPRESSION: Hyperinflation. The lungs are clear. Electronically Signed: Beny Schwab MD at 10:01 [facility] ,
== END 2021-04-26 23:59 | disposition home or self-care (01) ==
LOC: MTLAB 09:45 → MTRAD 09:53
PROVIDERS: PCP Family Medicine Geriatric Medicine; Referring Provider Nurse Practitioner Acute Care; Visit Provider Nurse Practitioner Acute Care
DX: R06.02 Shortness of breath (principal)
CPT/HCPCS: 71046

== ENCOUNTER 2021-04-26 10:13 | Outpatient (CLI) | payer OTHER, SELFPAY | END 2021-04-26 23:59 | disposition home or self-care (01) | LOC: PSN 10:13 | PROVIDERS: PCP Family Medicine Geriatric Medicine; Referring Provider Nurse Practitioner Acute Care; Visit Provider Nurse Practitioner Acute Care | DX: R05.9 Cough, unspecified (principal) | CPT/HCPCS: 87633; C9803 ==

== ENCOUNTER 2021-05-06 17:05 | Outpatient (CLI) | payer OTHER, SELFPAY ==
[2021-05-06 17:32] LABS: Absolute Lymphocyte Count 2.53 X10^3/uL (0.83-4.51); Absolute Neutrophil Count 6.3 X10^3/uL (2.0-7.7); Basophil# 0.05 X10^3/uL; Basophil% 0.5 % (0-1); Eosinophil# 0.09 X10^3/uL; Eosinophils% 0.9 % (0-5); Hematocrit 39.6 % (37-47); Hemoglobin 13.9 g/dL (12.0-15.0); Lymphocyte # 2.53 X10^3/ul (0.83-4.51); Lymphocyte % 25.9 % (19-41); Mean Corp Hgb Conc 35.1 g/dL (32-36); Mean Corpuscular Hgb 31.8 pg (27.0-32.0); Mean Corpuscular Volume 90.6 fL (81-99); Mean Platelet Vol. 8.4 fl (6.2-12.0); Monocyte# 0.72 X10^3/uL; Monocyte% 7.4 % (0-10); NRBC Flagged by Analyzer 0 % (0-5); Neutrophil # 6.26 X10^3/uL (2.7-7.7); Neutrophil % 64.1 % (47-70); Platelet Count 328 K/mm3 (150-450); RBC Distribution Width CV 13.3 % (11.6-14.6); Red Blood Count 4.37 M/mm3 (4.2-5.4); White Blood Count 9.8 K/mm3 (4.4-11.0)
[2021-05-06 17:55] LABS: Erythrocyte Sedimentation Rate 14 mm/hr (0-30)
[2021-05-06 17:57] LABS: AST(SGOT) 19 U/L (15-37); Alanine Aminotransfer ALT/SGPT 35 U/L (13-56); Albumin, Serum 3.7 g/dL (3.2-5.0); Alkaline Phosphatase 83 U/L (45-117); Bilirubin, Direct 0.12 mg/dL (0.00-0.30); CRP 8.93 mg/L (0.0-3.0); Creatinine, Serum 1.13 mg/dL (0.55-1.02); EST Glomerular Filtration Rate 52 mL/min (>60); Est Glom Filt Rate - Afr Amer 63 mL/min (>60); Globulin 3.6 g/dL (2.2-4.2); Protein, Total 7.3 g/dL (6.4-8.2)
== END 2021-05-06 23:59 | disposition home or self-care (01) ==
PROVIDERS: PCP Family Medicine Geriatric Medicine; Visit Provider Internal Medicine Rheumatology
DX: M05.79 Rheumatoid arthritis with rheumatoid factor of multiple sites without organ or systems involvement (principal)
CPT/HCPCS: 36415; 80076; 82565; 85025; 85652; 86140

== ENCOUNTER 2021-05-28 09:28 | Outpatient (CLI) | payer OTHER, SELFPAY ==
[2021-05-28 11:12] LABS: Creatinine, Serum 0.86 mg/dL (0.55-1.02); EST Glomerular Filtration Rate 71 mL/min (>60); Est Glom Filt Rate - Afr Amer 86 mL/min (>60)
== END 2021-05-28 23:59 | disposition home or self-care (01) ==
LOC: LAB 09:29
PROVIDERS: PCP Family Medicine Geriatric Medicine; Visit Provider Internal Medicine Rheumatology
DX: N28.9 Disorder of kidney and ureter, unspecified (principal)
CPT/HCPCS: 36415; 82565

== ENCOUNTER 2021-06-27 14:05 | Outpatient (CLI) | payer OTHER, SELFPAY ==
[2021-06-27 14:25] VITALS: BP 141/73; PULSE 81; RESP 18; TEMP 37.2; O2SAT 95; BMI 40.7
[2021-06-27] MEDS: 0.9% Saline Lock 10 ML Syringe IV ×3 (14:30→15:07)
[2021-06-27] MEDS: BEBTELOVIMAB 175 MG/2 ML VIAL IV (15:02)
[2021-06-27 15:05] VITALS: BP 112/66; PULSE 72; RESP 18; TEMP 37; O2SAT 98
[2021-06-27 15:56] VITALS: BP 111/77; PULSE 69; RESP 18; TEMP 37.3; O2SAT 94
== END 2021-06-27 16:02 | disposition home or self-care (01) ==
LOC: MS3OUT 14:05 → MS2 14:06
PROVIDERS: PCP Family Medicine Geriatric Medicine; Referring Provider Nurse Practitioner Adult Health; Visit Provider Nurse Practitioner Adult Health
DX: Z23 Encounter for immunization (principal); U07.1 COVID-19
CPT/HCPCS: M0222; Q0222; A4216

== ENCOUNTER → 2021-08-08 | Outpatient (CLI) | payer OTHER, SELFPAY ==
[2021-08-08 16:24] LABS: Absolute Lymphocyte Count 2.53 X10^3/uL (0.83-4.51); Absolute Neutrophil Count 4.8 X10^3/uL (2.0-7.7); Basophil# 0.04 X10^3/uL; Basophil% 0.5 % (0-1); Eosinophil# 0.07 X10^3/uL; Eosinophils% 0.9 % (0-5); Hematocrit 42.2 % (37-47); Hemoglobin 14.6 g/dL (12.0-15.0); Lymphocyte # 2.53 X10^3/ul (0.83-4.51); Lymphocyte % 31.2 % (19-41); Mean Corp Hgb Conc 34.6 g/dL (32-36); Mean Corpuscular Volume 92.5 fL (81-99); Mean Platelet Vol. 8.9 fl (6.2-12.0); Monocyte# 0.63 X10^3/uL; Monocyte% 7.8 % (0-10); NRBC Flagged by Analyzer 0 % (0-5); Neutrophil # 4.78 X10^3/uL (2.7-7.7); Platelet Count 360 K/mm3 (150-450); RBC Distribution Width CV 13.4 % (11.6-14.6); RBC Distribution Width SD 45.4 fl (35.1-43.9); Red Blood Count 4.56 M/mm3 (4.2-5.4); White Blood Count 8.1 K/mm3 (4.4-11.0)
[2021-08-08 16:32] LABS: Erythrocyte Sedimentation Rate 22 mm/hr (0-30)
[2021-08-08 17:11] LABS: AST(SGOT) 19 U/L (15-37); Alanine Aminotransfer ALT/SGPT 24 U/L (13-56); Albumin, Serum 3.6 g/dL (3.2-5.0); Alkaline Phosphatase 76 U/L (45-117); Bilirubin, Direct 0.13 mg/dL (0.00-0.30); CRP 6.48 mg/L (0.0-3.0); Creatinine, Serum 0.93 mg/dL (0.55-1.02); EST Glomerular Filtration Rate 65 mL/min (>60); Est Glom Filt Rate - Afr Amer 79 mL/min (>60); Globulin 3.6 g/dL (2.2-4.2); Protein, Total 7.2 g/dL (6.4-8.2)
== END | disposition home or self-care (01) ==
LOC: MTLAB 14:38
PROVIDERS: PCP Family Medicine Geriatric Medicine; Referring Provider Internal Medicine Rheumatology; Visit Provider Internal Medicine Rheumatology
DX: M05.79 Rheumatoid arthritis with rheumatoid factor of multiple sites without organ or systems involvement (principal)
CPT/HCPCS: 36415; 80076; 82565; 85025; 85652; 86140

== ENCOUNTER → 2021-09-20 | Outpatient (CLI) | payer OTHER, SELFPAY ==
--- NOTE | 2021-09-20 10:29 | PFTCOMP ---
COMPLETE PULMONARY FUNCTION TEST INTERPRETATION Brief HPI: Patient is a 61-year-old female, currently under the care of myself, who presents to [facility] for complete pulmonary function tests secondary to diagnosis of COPD. Respiratory therapist reports good effort and reproducible results. Interpretation: Forced expiration spirometry shows a moderate large airways obstructive ventilatory defect with an FEV1 of 69% predicted. There is a significant bronchodilator response in FEV1 by strict ATS criteria. Spirograms are of good quality and plateau slowly, indicating slowly emptying areas of the lungs. The respiratory flow volume loop shows decreased expiratory flow rates at all lung volumes consistent with airway obstruction. Lung volumes by body plethysmography show a normal total lung capacity at 5.37 L, 105% predicted. All other lung volumes are within normal limits. Diffusion capacity by carbon monoxide is decreased at 64% predicted. The airway resistance is elevated. Compared to previous pulmonary function tests from 09/02/2020, there is been a significant reduction in total lung capacity with improved air trapping. Impression: Partially reversible moderate large airways obstructive ventilatory defect with a symmetric reduction diffusing capacity.
== END | disposition home or self-care (01) ==
LOC: PSN 06:49
PROVIDERS: PCP Family Medicine Geriatric Medicine; Referring Provider Nurse Practitioner Acute Care; Visit Provider Nurse Practitioner Acute Care
DX: J44.9 Chronic obstructive pulmonary disease, unspecified (principal)
CPT/HCPCS: 94060; 94726; 94729

== ENCOUNTER → 2021-11-23 | Outpatient (CLI) | payer OTHER, SELFPAY ==
[2021-11-23 14:35] LABS: ALB/GLOB Ratio 0.9 RATIO (0.9-2.4); AST(SGOT) 15 U/L (15-37); Alanine Aminotransfer ALT/SGPT 24 U/L (13-56); Albumin, Serum 3.6 g/dL (3.2-5.0); Alkaline Phosphatase 87 U/L (45-117); Anion Gap 8 (5-15); BUN 17 mg/dL (7-18); CRP 4.62 mg/L (0.0-3.0); Calcium,Total 9.3 mg/dL (8.5-10.1); Chloride 106 mmol/L (98-107); Creatinine, Serum 0.94 mg/dL (0.55-1.02); EST Glomerular Filtration Rate 64 mL/min (>60); Est Glom Filt Rate - Afr Amer 78 mL/min (>60); Globulin 3.8 g/dL (2.2-4.2); Glucose 87 mg/dL (74-106); Potassium 3.9 mmol/L (3.5-5.1); Protein, Total 7.4 g/dL (6.4-8.2); Sodium Level 140 mmol/L (136-145); Thyroid Stim Hormone (TSH) 2.99 uIU/mL (0.358-3.74)
[2021-11-23 15:05] LABS: Erythrocyte Sedimentation Rate 16 mm/hr (0-30)
[2021-11-23 15:07] LABS: Absolute Lymphocyte Count 2.49 X10^3/uL (0.83-4.51); Absolute Neutrophil Count 5.4 X10^3/uL (2.0-7.7); Basophil# 0.05 X10^3/uL; Basophil% 0.6 % (0-1); Eosinophil# 0.04 X10^3/uL; Eosinophils% 0.5 % (0-5); Hematocrit 42.3 % (37-47); Hemoglobin 13.7 g/dL (12.0-15.0); Lymphocyte # 2.49 X10^3/ul (0.83-4.51); Lymphocyte % 28.4 % (19-41); Mean Corp Hgb Conc 32.4 g/dL (32-36); Mean Corpuscular Hgb 31.4 pg (27.0-32.0); Mean Corpuscular Volume 96.8 fL (81-99); Mean Platelet Vol. 8.8 fl (6.2-12.0); Monocyte# 0.73 X10^3/uL; Monocyte% 8.3 % (0-10); NRBC Flagged by Analyzer 0 % (0-5); Neutrophil % 61.6 % (47-70); Platelet Count 364 K/mm3 (150-450); RBC Distribution Width CV 13.6 % (11.6-14.6); RBC Distribution Width SD 48.9 fl (35.1-43.9); Red Blood Count 4.37 M/mm3 (4.2-5.4); White Blood Count 8.8 K/mm3 (4.4-11.0)
== END | disposition home or self-care (01) ==
LOC: POLAB3 09:10
PROVIDERS: PCP Family Medicine Geriatric Medicine; Visit Provider Family Medicine Geriatric Medicine
DX: M05.79 Rheumatoid arthritis with rheumatoid factor of multiple sites without organ or systems involvement (principal); R53.83 Other fatigue; Z79.899 Other long term (current) drug therapy
CPT/HCPCS: 36415; 80053; 82248; 84443; 85025; 85652; 86140

== ENCOUNTER 2022-01-03 07:03 | Outpatient (CLI) | payer OTHER, SELFPAY ==
--- NOTE | 2022-01-03 07:09 | BI_ITS ---
MAMMOGRAPHY - BILATERAL SCREENING REASON FOR EXAM: Female, 61 years old. Routine annual screening examination. PERTINENT HISTORY: Non-contributory. TECHNIQUE: Digital bilateral breast raj (3D mammographic acquisition) in the CC and MLO projections. 2-D mediolateral oblique (MLO) and craniocaudad (CC) views of both breasts were obtained. CAD: Full Field Digital Mammography with Computer Added Detection was performed. COMPARISON: Comparison is made with prior study dated 04/08/2019 and 12/18/2016. FINDINGS: Breast Composition: The breasts are almost entirely fatty. There are no dominant masses or suspicious calcifications. Stable small benign-appearing bilateral axillary lymph. No other significant abnormalities are identified. There has been no significant change since the prior study. BI/SCRN MAMM (CAD)W/RAJ BILAT IMPRESSION: Stable bilateral screening mammogram. Yearly follow-up mammogram recommended. (A) ASSESSMENT CATEGORY: BIRADS Category 2: Benign. A letter regarding these results will be sent to the patient by the facility within 30 days. Approximately 10% of breast cancers are not detected by mammography. A normal mammogram should not delay biopsy of a clinically suspicious abnormality. [id number] Electronically Signed: Beny Schwab MD at 9:05 EST ,
== END 2022-01-03 23:59 | disposition home or self-care (01) ==
PROVIDERS: PCP Family Medicine Geriatric Medicine; Visit Provider Family Medicine Geriatric Medicine
DX: Z12.31 Encounter for screening mammogram for malignant neoplasm of breast (principal)
CPT/HCPCS: 77063; 77067

== ENCOUNTER 2022-03-13 08:31 | Day surgery (SDC) | payer OTHER, SELFPAY ==
--- NOTE | 2022-03-13 | COLBX_PTH ---
PATIENT: LAUREN MALDONADO LOC: EN U#:[id number] AGE/SX: 62/F ROOM: RE03/13/[address]: Dr. Drew Hidalgo DO : 1960 BED: DIS: 03/13/2022 SPEC #: [id number] RECD: 03/14/22 11:07 STATUS: NATASHA BYRON #: [id number] TAMICA: 03/13/22 00:[address]: Drew Hidalgo DEPT: SURGICAL PATHOLOGY RECD BY: Max Hilario ENTERED: 03/14/22 11:08 SP TYPE: COLON BX OTHR DR: Dr. Leon Pinto MD Tissues: Rectum, NOS Procedures: Surgery Specimen Level IV HEADER OPERATION: Colonoscopy ? open access (MAC), biopsy, electrohemostasis PRE-OP DIAGNOSIS: Screening TISSUE SUBMITTED: Rectal polyp biopsy MICROSCOPIC DIAGNOSIS Rectal polyp, biopsy: Fragments of hyperplastic polyp. AM:matty 03/15/2022 MICROSCOPIC DESCRIPTION Slides are reviewed. GROSS DESCRIPTION Received in fixative is one container labeled with the patient's name and designated rectal polyp biopsy. The specimen consists of multiple irregular fragments of light gutierrez soft tissue that in aggregate measure 0.6 x 0.6 x 0.1 cm. The specimen is totally submitted in one cassette. / SJ:matty 03/14/2022 TC:5 CPT: 55741
--- NOTE | 2022-03-13 08:40 | HP.PCM_ITS ---
[facility] - General General Date of Admission: 03/13/22 Date of Service: 03/13/22 HPI Narrative LAUREN MALDONADO, is a 62 F who presents today for screening colonoscopy. She has a past medical history of TAMRA, COPD not on home in, hypertension, hyperlipidemia, nicotine addiction who presents today for screening colonoscopy. She is not having any problems with her bowels. She not have any nausea. She denied any chest pain or shortness of breath. She denies any hematochezia or melena. [facility] Medical History (Updated 01/05/22 @ 10:47 by Vera Sam) Acute maxillary sinusitis Alcohol use Allergic rhinitis Anxiety Bicipital tendinitis of right shoulder Bursitis of right shoulder Cervical radiculopathy Cervicalgia Chronic cough COPD (chronic obstructive pulmonary disease) COPD (chronic obstructive pulmonary disease) CPAP (continuous positive airway pressure) dependence Depression Family history of alcoholism Gastric reflux GERD (gastroesophageal reflux disease) High cholesterol History of edema History of hiatal hernia History of pain when walking History of steroid therapy History of stress test Hyperlipidemia Incontinence Kidney stone Limb weakness TAMRA (obstructive sleep apnea) Restless legs Rheumatoid arthritis Rotator cuff syndrome Segmental and somatic dysfunction of lumbar region Segmental and somatic dysfunction of thoracic region Shortness of breath on exertion Sleep apnea Smoker Spontaneous rupture of extensor tendons, right forearm Tobacco abuse Wears glasses Home Medications hydroxychloroquine 200 mg tablet 200 mg PO BIDCM 05/18/16 [History Last Taken 1 Day Ago ~08/27/16] omeprazole 40 mg capsule,delayed release 40 mg PO DAILY 05/18/16 [History Last Taken 12/28/20 04:30] paroxetine HCl 20 mg tablet 20 mg PO DAILY 04/29/18 [History Last Taken Unknown] potassium citrate 15 mEq (1,620 mg) tablet,extended release 20 meq PO DAILY 12/17/18 [History Last Taken Unknown] bupropion HCl 150 mg tablet,12 hr sustained-release 150 mg PO DAILY 07/02/20 [History Last Taken Unknown] diphenhydramine HCl 50 mg capsule (Sleep Aid (diphenhydramine)) 50 mg PO QHS 07/02/20 [History Last Taken Unknown] loratadine 10 mg capsule 10 mg PO DAILY 07/02/20 [History Last Taken Unknown] abatacept 50 mg/0.4 mL subcutaneous syringe (Orencia) 50 mg subcut QWEEK 12/10/20 [History Last Taken Unknown] ibuprofen 200 mg tablet 400 mg PO Q6H PRN PAIN 12/21/20 [History Last Taken Unknown] mirabegron 25 mg tablet,extended release 24 hr (Myrbetriq) 25 mg PO DAILY 12/21/20 [History Last Taken Unknown] albuterol sulfate 90 mcg/actuation aerosol inhaler 1 - 2 puff inhalation Q6H PRN PRN Sob &/Or Wheezing #18 grams 04/20/21 [Rx Last Taken Unknown] fluticasone fur. 100 mcg-umeclid 62.5 mcg-vilant 25 mcg inhalat.powder (Trelegy Ellipta) 1 inh inhalation DAILY #60 ea 04/20/21 [Rx Last Taken Unknown] albuterol sulfate 2.5 mg/3 mL (0.083 %) solution for nebulization 2.5 mg (3 mL) inhalation Q6H PRN Wheezing #180 mL 04/26/21 [Rx Last Taken Unknown] clindamycin HCl 300 mg capsule 300 mg PO Q6H 03/09/22 [History Last Taken Unknown] folic acid 1 mg tablet 1 mg PO BID 03/09/22 [History Last Taken Unknown] leucovorin calcium 5 mg tablet 5 mg PO QWEEK 03/09/22 [History Last Taken Unknown] methotrexate sodium 2.5 mg tablet 20 mg PO QWEEK 03/09/22 [History Last Taken Unknown] Allergy/AdvReac Type Severity Reaction Status Date / Time adalimumab [From Humira] Allergy Rash Verified 03/09/22 15:19 Penicillins Allergy Rash Verified 03/09/22 15:19 adhesive AdvReac Rash Verified 03/09/22 15:19 tramadol AdvReac FEELING OF Verified 03/09/22 15:19 CONFUSION Family History Mother COPD (chronic obstructive pulmonary disease) Heart disease Osteoarthritis TAMRA (obstructive sleep apnea) Father Cancer throat Surgical History (Updated 03/09/22 @ 15:27 by Maggie Keys) h/o trigger finger release History of appendectomy History of esophagogastroduodenoscopy (EGD) History of laparoscopic cholecystectomy History of surgery on arm Hx of colonoscopy Hx of surgical procedure Social History Smoking Status: Current every day smoker tobacco type: cigarettes Tobacco: How many years used: 35 second hand exposure: Yes alcohol intake: current substance use type: does not use caffeine: Yes what type of physical activity do you participate in: none ROS Review of Systems ROS Unobtainable: other Constitutional Constitutional: Denies fatigue, fever(s), poor appetite, weight gain or weight loss ENT HEENT: Denies mouth lesions Cardiovascular Cardiovascular: Denies abdominal bloating, abdominal edema or abdominal pain Respiratory/Chest Respiratory/Chest: Denies change in mental status, change in phlegm color, chest congestion or chest tightness Gastrointestinal Gastrointestinal: Denies belching, bloating, change in bowel habits, change in stool character, chewing difficulty, coffee ground emesis, constipation, cramping, diarrhea, dyspepsia, dysphagia, early satiety, excessive flatus, fecal incontinence, heartburn, hematemesis, hematochezia, hemorrhoids, loose stools, melena, nausea, odynophagia, rectal bleeding, tenesmus, vomiting or weight changes Genitourinary Genitourinary: Denies abdominal discomfort, burning urination or itching Musculoskeletal Musculoskeletal: Reports as per HPI; Denies muscle weakness or myalgias Integumentary Integumentary: Denies jaundice Neurologic Neurologic: Denies lack of coordination or weakness Psychiatric Psychiatric: Denies confusion, depression, memory loss, mood swings, paranoia or suicidal ideation Endocrine Endocrinology: Denies systems reviewed and no addt'l complaints, except as documented Hematologic/Lymphatic Hematologic/Lymphatic: Denies anemia, easy bleeding, easy bruising or lymphadenopathy Allergic/Immunologic Allergic/Immunologic: Denies systems reviewed and no addt'l complaints, except as documented Physical Exam Const alert General Appearance: cooperative Orientation / Consciousness: oriented to person HEENT hearing grossly normal bilaterally Head and Scalp: normal to inspection Face and Sinus: face symmetric Nose: external nose normal Mouth: oral and palatal mucosa normal Eyes conjunctivae normal General Eye: normal appearance of both eyes Neck full ROM General: normal visual inspection Lymph Lymphatic: no lymphadenopathy noted Chest inspection of chest normal and palpation of chest normal Chest: symmetrical chest wall rise Resp normal respiratory effort Effort and Inspection: able to speak in complete sentences Cardio regular rate GI non-distended Percussion: normal to percussion Rectal Exam: deferred Neuro Speech: speech normal Gait (Neuro): normal gait Assessment & Plan Assessment/Plan (1) Encounter for screening for malignant neoplasm of colon: PLAN: She was explained alternatives, risk, benefits including not withstanding bleeding, infection, sepsis, perforation, need for emergent surgery . She will have an ASA of 3.
[2022-03-13] MEDS: Lactated Ringers 1,000 ML 15 ML IV (08:50)
[2022-03-13 08:57] VITALS: BP 154/85; PULSE 87; RESP 16; TEMP 36.9; O2SAT 98; BMI 42.0
[2022-03-13 10:34] VITALS: BP 123/79; BP 154/85; PULSE 78; RESP 18; TEMP 37; O2SAT 99
[2022-03-13 10:40] VITALS: BP 119/54; BP 154/85; PULSE 79; RESP 18; O2SAT 97
--- NOTE | 2022-03-13 10:42 | OP.COLON_ITS ---
Patient Name: Monica Jorge Procedure Date: 03/13/2022 9:52 AM Date of : 1960 Age: 62 Procedure: Colonoscopy Indications: Follow-up for history of adenomatous polyps in the colon, Family history of colon cancer in a first-degree relative Providers: Drew Hidalgo DO Referring MD: Drew Hidalgo DO Medicines: Monitored Anesthesia Care Patient Profile: This is a 62 year old female. Refer to note in patient chart for documentation of history and physical. Last Colonoscopy: 5 years ago. Complications: No immediate complications. Procedure: Pre-Anesthesia Assessment: - Prior to the procedure, a History and Physical was performed, and patient medications and allergies were reviewed. The risks and benefits of the procedure and the sedation options and risks were discussed with the patient. All questions were answered and informed consent was obtained. Patient identification and proposed procedure were verified by the physician. Mental Status Examination: normal. Prophylactic Antibiotics: The patient does not require prophylactic antibiotics. Prior Anticoagulants: The patient has taken no previous anticoagulant or antiplatelet agents. ASA Grade Assessment: II - A patient with mild systemic disease. After reviewing the risks and benefits, the patient was deemed in satisfactory condition to undergo the procedure. The anesthesia plan was to use moderate sedation / analgesia (conscious sedation). Immediately prior to administration of medications, the patient was re-assessed for adequacy to receive sedatives. The heart rate, respiratory rate, oxygen saturations, blood pressure, adequacy of pulmonary ventilation, and response to care were monitored throughout the procedure. The physical status of the patient was re-assessed after the procedure. After I obtained informed consent, the scope was passed under direct vision. Throughout the procedure, the patient's blood pressure, pulse, and oxygen saturations were monitored continuously. The Colonoscope was introduced through the anus and advanced to the cecum, identified by appendiceal orifice and ileocecal valve. The terminal ileum, ileocecal valve, appendiceal orifice, and rectum were photographed. Scope In: 10:04:51 AM Scope Withdrawal Time 0 hours 18 minutes 52 seconds Scope Out: 10:29:36 AM Total Procedure Duration Time 0 hours 24 minutes 45 seconds Findings: The perianal and digital rectal examinations were normal. A 5 mm polyp was found in the rectum. The polyp was sessile. The polyp was removed with a cold snare. Resection and retrieval were complete. Verification of patient identification for the specimen was done. Estimated blood loss was minimal. A few small and large-mouthed diverticula were found in the recto-sigmoid colon, sigmoid colon and descending colon. The entire examined colon appeared normal on direct and retroflexion views. The exam was otherwise without abnormality on direct and retroflexion views. Impression: - One 5 mm polyp in the rectum, removed with a cold snare. Resected and retrieved. - Diverticulosis in the recto-sigmoid colon, in the sigmoid colon and in the descending colon. - The entire examined colon is normal on direct and retroflexion views. - The examination was otherwise normal on direct and retroflexion views. Recommendation: - Discharge patient to home. - Resume previous diet. - Continue present medications. - Await pathology results. - Repeat colonoscopy in 5 years for surveillance. Procedure Code(s): --- Professional --- 53178, Colonoscopy, flexible; with removal of tumor(s), polyp(s), or other lesion(s) by snare technique CPT copyright 2017 [employer]. All rights reserved. The codes documented in this report are preliminary and upon attorney lawyer review may be revised to meet current compliance requirements. Drew Hidalgo DO 03/13/2022 10:41:52 AM This report has been signed electronically. Number of Addenda: 0 Note Initiated On: 03/13/2022 9:52 AM
--- NOTE | 2022-03-13 10:43 | OP.CCLET_ITS ---
03/13/2022 Leon Pinto MD [address] [place] [address] Re : Colonoscopy procedure for Monica Jorge Dear Dr. Pinto This procedure was performed on Sunday, March 13, 2022. My impressions and recommendations are as follows: Impressions : - One 5 mm polyp in the rectum, removed with a cold snare. Resected and retrieved. - Diverticulosis in the recto-sigmoid colon, in the sigmoid colon and in the descending colon. - The entire examined colon is normal on direct and retroflexion views. - The examination was otherwise normal on direct and retroflexion views. Recommendations : - Discharge patient to home. - Resume previous diet. - Continue present medications. - Await pathology results. - Repeat colonoscopy in 5 years for surveillance. My findings are described in the full procedure note, which is enclosed. If I can be of further assistance, please feel free to contact me at . Sincerely, Drew Hidalgo, 03/13/2022 10:41:52 AM This report has been signed electronically.
[2022-03-13 10:45] VITALS: BP 128/102; BP 154/85; PULSE 80; RESP 18; O2SAT 96
[2022-03-13 10:50] VITALS: BP 123/86; BP 154/85; PULSE 81; RESP 18; TEMP 37.3; O2SAT 97
[2022-03-13 11:03] VITALS: BP 154/85
== END 2022-03-13 11:46 | disposition home or self-care (01) ==
LOC: EN 08:33 → AC 08:34
PROVIDERS: PCP Family Medicine Geriatric Medicine; Referring Provider Family Medicine Geriatric Medicine; Visit Provider Internal Medicine Gastroenterology
PROC: 0DJD8ZZ Inspection of Lower Intestinal Tract, Via Natural or Artificial Opening Endoscopic (ICD-10-PCS; CPT 45378; principal; 2022-03-13 09:40)
DX: Z12.11 Encounter for screening for malignant neoplasm of colon (principal); M06.9 Rheumatoid arthritis, unspecified; J44.9 Chronic obstructive pulmonary disease, unspecified; K57.30 Diverticulosis of large intestine without perforation or abscess without bleeding; K62.1 Rectal polyp; Z80.0 Family history of malignant neoplasm of digestive organs; F17.210 Nicotine dependence, cigarettes, uncomplicated; Z86.010 Personal history of colon polyps; Z79.899 Other long term (current) drug therapy; K21.9 Gastro-esophageal reflux disease without esophagitis; G47.33 Obstructive sleep apnea (adult) (pediatric); I10 Essential (primary) hypertension; E78.5 Hyperlipidemia, unspecified; F41.9 Anxiety disorder, unspecified; F32.A Depression, unspecified
CPT/HCPCS: 45385; 88305; J7120; J2405

== ENCOUNTER → 2022-03-21 | Outpatient (CLI) | payer OTHER, SELFPAY ==
[2022-03-21 18:16] LABS: Erythrocyte Sedimentation Rate 7 mm/hr (0-30)
[2022-03-21 18:26] LABS: Absolute Neutrophil Count 5.3 X10^3/uL (2.0-7.7); Basophil# 0.05 X10^3/uL; Basophil% 0.6 % (0-1); Eosinophil# 0.11 X10^3/uL; Eosinophils% 1.2 % (0-5); Hemoglobin 14.1 g/dL (12.0-15.0); Lymphocyte % 30.4 % (19-41); Mean Corp Hgb Conc 32.8 g/dL (32-36); Mean Corpuscular Hgb 31.5 pg (27.0-32.0); Mean Corpuscular Volume 96.2 fL (81-99); Mean Platelet Vol. 8.8 fl (6.2-12.0); Monocyte# 0.68 X10^3/uL; Monocyte% 7.7 % (0-10); NRBC Flagged by Analyzer 0 % (0-5); Neutrophil # 5.27 X10^3/uL (2.7-7.7); Neutrophil % 59.3 % (47-70); Platelet Count 366 K/mm3 (150-450); RBC Distribution Width CV 14.1 % (11.6-14.6); RBC Distribution Width SD 49.5 fl (35.1-43.9); Red Blood Count 4.47 M/mm3 (4.2-5.4); White Blood Count 8.9 K/mm3 (4.4-11.0)
[2022-03-21 18:40] LABS: AST(SGOT) 20 U/L (15-37); Alanine Aminotransfer ALT/SGPT 27 U/L (13-56); Albumin, Serum 3.6 g/dL (3.2-5.0); Alkaline Phosphatase 81 U/L (45-117); CRP 6.44 mg/L (0.0-3.0); Creatinine, Serum 1.02 mg/dL (0.55-1.02); EST Glomerular Filtration Rate 59 mL/min (>60); Est Glom Filt Rate - Afr Amer 71 mL/min (>60); Globulin 3.4 g/dL (2.2-4.2)
== END | disposition home or self-care (01) ==
LOC: MTLAB 16:11
PROVIDERS: PCP Family Medicine Geriatric Medicine; Referring Provider Internal Medicine Rheumatology; Visit Provider Internal Medicine Rheumatology
DX: M05.79 Rheumatoid arthritis with rheumatoid factor of multiple sites without organ or systems involvement (principal); Z79.899 Other long term (current) drug therapy
CPT/HCPCS: 36415; 80076; 82565; 85025; 85652; 86140

== ENCOUNTER 2022-03-28 17:57 | Emergency (ER) | payer OTHER, SELFPAY ==
[2022-03-28 17:58] VITALS: BP 181/94; PULSE 98; RESP 14; TEMP 36.6; O2SAT 96; BMI 42.7
[2022-03-28] MEDS: Aspirin 81 MG TAB.CHEW 324 MG PO (18:18)
--- NOTE | 2022-03-28 18:20 | RAD_ITS ---
STUDY: X-RAY CHEST REASON FOR EXAM: Female, 62 years old. chest pain TECHNIQUE: AP portable COMPARISON: April 26, 2021 FINDINGS: Lungs are mildly hyperinflated but clear. There is no demonstrated pleural abnormality. Normal size heart. Normal mediastinum and lisa. Normal visualized pulmonary arteries. Normal visualized aortic arch and descending thoracic aorta. Dorsal spine demonstrates degenerative change. Normal visualized ribs, clavicles, and shoulders. There is no demonstrated abnormality of the visualized soft tissue structures of the upper abdomen. No significant change since prior exam RAD/Chest 1 View (Portable) IMPRESSION: Mild COPD. No acute disease. Electronically Signed: Rj Lopez MD at 18:35 EST ,
[2022-03-28 18:44] LABS: Absolute Lymphocyte Count 2.59 X10^3/uL (0.83-4.51); Absolute Neutrophil Count 5.2 X10^3/uL (2.0-7.7); Basophil# 0.04 X10^3/uL; Basophil% 0.5 % (0-1); Eosinophil# 0.09 X10^3/uL; Eosinophils% 1.1 % (0-5); Hematocrit 41.4 % (37-47); Hemoglobin 13.8 g/dL (12.0-15.0); Lymphocyte # 2.59 X10^3/ul (0.83-4.51); Lymphocyte % 30.3 % (19-41); Mean Corp Hgb Conc 33.3 g/dL (32-36); Mean Corpuscular Volume 96.1 fL (81-99); Mean Platelet Vol. 8.4 fl (6.2-12.0); Monocyte# 0.62 X10^3/uL; Monocyte% 7.2 % (0-10); NRBC Flagged by Analyzer 0 % (0-5); Neutrophil # 5.15 X10^3/uL (2.7-7.7); Neutrophil % 60.1 % (47-70); Platelet Count 347 K/mm3 (150-450); RBC Distribution Width SD 48.9 fl (35.1-43.9); Red Blood Count 4.31 M/mm3 (4.2-5.4); White Blood Count 8.6 K/mm3 (4.4-11.0)
[2022-03-28 18:52] LABS: Anion Gap 6 (5-15); BUN 15 mg/dL (7-18); BUN/Creat Ratio 16.6 RATIO (10-20); Calcium,Total 9.1 mg/dL (8.5-10.1); Chloride 108 mmol/L (98-107); EST Glomerular Filtration Rate 67 mL/min (>60); Est Glom Filt Rate - Afr Amer 82 mL/min (>60); Estimated Creatinine Clearance 59.07 ml/min; Glucose 101 mg/dL (74-106); Potassium 3.9 mmol/L (3.5-5.1); Sodium Level 139 mmol/L (136-145); Troponin-I HS (w/2H Reflex) 5 pg/mL (3.0-54.0)
--- NOTE | 2022-03-28 19:12 | EDS_ITS ---
HPI History of Present Illness Chief Complaint: Chest Pain Narrative Narrative: 62-year-old female presenting with chest pain. She describes it as sharp and retrosternal. It is periodic. It last about a half a second. She states it feels like a jolt. It does not worsen with deep inspiration. She denies any injury. She states that this is happened multiple times since Sunday which is about 4 days ago. She is not lightheaded or short of breath. No chest pain elsewhere. No nausea or vomiting. She denies abdominal pain. She has been eating and drinking normally. She making normal urine and stool. No fever, chills. Patient denies cardiac history. No history of DVT/PE. No recent surgery, recent immobilization [facility] Medical History Acute maxillary sinusitis Alcohol use Allergic rhinitis Anxiety Bicipital tendinitis of right shoulder Bursitis of right shoulder Cervical radiculopathy Cervicalgia Chronic cough COPD (chronic obstructive pulmonary disease) COPD (chronic obstructive pulmonary disease) CPAP (continuous positive airway pressure) dependence Depression Family history of alcoholism Gastric reflux GERD (gastroesophageal reflux disease) High cholesterol History of edema History of hiatal hernia History of pain when walking History of steroid therapy History of stress test Hyperlipidemia Incontinence Kidney stone Limb weakness TAMRA (obstructive sleep apnea) Restless legs Rheumatoid arthritis Rotator cuff syndrome Segmental and somatic dysfunction of lumbar region Segmental and somatic dysfunction of thoracic region Shortness of breath on exertion Sleep apnea Smoker Spontaneous rupture of extensor tendons, right forearm Tobacco abuse Wears glasses Home Medications hydroxychloroquine 200 mg tablet 200 mg PO BIDCM 05/18/16 [History Last Taken 1 Day Ago ~08/27/16] omeprazole 40 mg capsule,delayed release 40 mg PO DAILY 05/18/16 [History Last Taken 12/28/20 04:30] paroxetine HCl 20 mg tablet 20 mg PO DAILY 04/29/18 [History Last Taken Unknown] potassium citrate 15 mEq (1,620 mg) tablet,extended release 20 meq PO DAILY 12/17/18 [History Last Taken Unknown] bupropion HCl 150 mg tablet,12 hr sustained-release 150 mg PO DAILY 07/02/20 [History Last Taken Unknown] diphenhydramine HCl 50 mg capsule (Sleep Aid (diphenhydramine)) 50 mg PO QHS 07/02/20 [History Last Taken Unknown] loratadine 10 mg capsule 10 mg PO DAILY 07/02/20 [History Last Taken Unknown] abatacept 50 mg/0.4 mL subcutaneous syringe (Orencia) 50 mg subcut QWEEK 12/10/20 [History Last Taken Unknown] ibuprofen 200 mg tablet 400 mg PO Q6H PRN PAIN 12/21/20 [History Last Taken Unknown] mirabegron 25 mg tablet,extended release 24 hr (Myrbetriq) 25 mg PO DAILY 12/21/20 [History Last Taken Unknown] albuterol sulfate 90 mcg/actuation aerosol inhaler 1 - 2 puff inhalation Q6H PRN PRN Sob &/Or Wheezing #18 grams 04/20/21 [Rx Last Taken Unknown] fluticasone fur. 100 mcg-umeclid 62.5 mcg-vilant 25 mcg inhalat.powder (Trelegy Ellipta) 1 inh inhalation DAILY #60 ea 04/20/21 [Rx Last Taken 03/13/22 07:00] albuterol sulfate 2.5 mg/3 mL (0.083 %) solution for nebulization 2.5 mg (3 mL) inhalation Q6H PRN Wheezing #180 mL 04/26/21 [Rx Last Taken Unknown] clindamycin HCl 300 mg capsule 300 mg PO Q6H 03/09/22 [History Last Taken Unknown] folic acid 1 mg tablet 1 mg PO BID 03/09/22 [History Last Taken Unknown] leucovorin calcium 5 mg tablet 5 mg PO QWEEK 03/09/22 [History Last Taken Unknown] methotrexate sodium 2.5 mg tablet 20 mg PO QWEEK 03/09/22 [History Last Taken Unknown] Allergy/AdvReac Type Severity Reaction Status Date / Time adalimumab [From Humira] Allergy Rash Verified 03/28/22 17:58 Penicillins Allergy Rash Verified 03/28/22 17:58 adhesive AdvReac Rash Verified 03/28/22 17:58 tramadol AdvReac FEELING OF Verified 03/28/22 17:58 CONFUSION Family History Mother COPD (chronic obstructive pulmonary disease) Heart disease Osteoarthritis TAMRA (obstructive sleep apnea) Father Cancer throat Surgical History h/o trigger finger release History of appendectomy History of esophagogastroduodenoscopy (EGD) History of laparoscopic cholecystectomy History of surgery on arm Hx of colonoscopy Hx of surgical procedure Social History Smoking Status: Current every day smoker tobacco type: cigarettes Tobacco: How many years used: 35 second hand exposure: Yes alcohol intake: current substance use type: does not use caffeine: Yes what type of physical activity do you participate in: none ROS ROS ED Constitutional Constitutional ED: Denies chills, fever(s) or sweats Eyes Eyes: Denies blurry vision or change in vision ENT ENT ED: Denies ear pain or sore throat Cardiovascular Cardiovascular: Reports chest pain; Denies palpitations or racing heartbeat Respiratory/Chest Respiratory/Chest: Denies cough, dyspnea or sputum Gastrointestinal Gastrointestinal: Denies abdominal pain, constipation, diarrhea, nausea or vomiting Genitourinary Genitourinary ED: Denies dysuria, hematuria or urinary frequency Musculoskeletal Musculoskeletal: Denies arthralgias, myalgias or neck pain Integumentary Denies abscess, Abrasions or rash Neurologic Neurologic: Denies headache(s), paresthesias or weakness Psychiatric Psychiatric: Denies anxiety, depression, suicidal ideation or suicidal thoughts Endocrine Endocrinology: Denies polydipsia or polyuria EXAM Physical Exam Const Vital Signs: 03/28/22 17:58 03/28/22 18:16 03/28/22 20:00 Temperature 98 F Temperature Source Temporal Pulse Rate 98 78 Respiratory Rate 14 16 Blood Pressure 181/94 H 148/78 H Blood Pressure Mean 123 101 Pulse Ox 96 99 Oxygen Delivery Method Room Air Room Air Room Air General Appearance ED: Negative for pallor HEENT Reports normocephalic, head/scalp atraumatic and moist mucous membranes Eyes PERRL and EOMs intact bilaterally Neck no lymphadenopathy and supple Chest Wall inspection of chest normal and palpation of chest normal Resp normal respiratory effort and clear to auscultation bilaterally Auscultation: Negative for rales, rhonchi or wheezes Cardio regular rate and regular rhythm GI normal to inspection, nondistended, normoactive bowel sounds and non-distended Auscultation: normoactive bowel sounds Palpation: soft Narrative: Deferred Back/Spine Cervical Spine: Negative for cervical spine tenderness Extremity normal to inspection General Extremety ED: Yes edema and tenderness General Extremity: edema Neuro oriented x3 and CN's II-XII intact bilaterally Sensorium / Orientation: alert Motor Exam: strength 5/5 throughout Psych mental status grossly normal Attitude: No agitated Skin no rashes or lesions noted and no wounds General Skin Exam: Negative for jaundice or pallor MDM MDM MDM Narrative Medical decision making narrative: Patient presenting with chest wall pain. It is sharp and intermittent. It is not pleuritic however. Its not associate with deep breathing. Differential includes but not limited to ACS, PE, pneumonia, aortic dissection, costochondritis, patient obtained an EKG to assess rhythm and check for ischemia. On my interpretation this is a normal sinus rhythm with a ventricular rate of 87 bpm. [place] interval 152 ms, QRS duration 80 ms, QTc 445 ms. Chest x- ray obtained patient family given paperwork. CBC obtained to assess for white blood cell count, hemoglobin, differential. This is all unremarkable. BMP to assess renal function, electrolytes and this is also normal. High-sensitivity troponin 5 and 2-hour troponin is 6. There is no significant interval change. Patient is PERC negative. Chest x-ray interpreted by myself shows no acute process. Radiologist are persistent agrees. Unclear what the source of her chest pain is however I do not believe there is anything emergent etiology to it. Patient is well-appearing and I believe she can be discharged home safely. She will follow-up with her PCP for reevaluation. Return precautions discussed. Impression: 1. Chest pain Lab Data Attestation: I reviewed the patient's lab results. Labs: Laboratory Results - last 24 hr 03/28/22 03/28/22 03/28/22 18:28 18:28 20:45 WBC 8.6 RBC 4.31 Hgb 13.8 Hct 41.4 MCV 96.1 MCH 32.0 MCHC 33.3 RDW Std Deviation 48.9 H RDW Coeff of Solo 14.0 Plt Count 347 MPV 8.4 Immature Gran % (Auto) 0.800 Neut % (Auto) 60.1 Lymph % (Auto) 30.3 [place] % (Auto) 7.2 Eos % (Auto) 1.1 Baso % (Auto) 0.5 Absolute Neuts (auto) 5.2 Absolute Lymphs (auto) 2.59 Nucleated RBC % 0 Sodium 139 Potassium 3.9 Chloride 108 H Carbon Dioxide 25.0 Anion Gap 6 BUN 15 Creatinine 0.90 Estim Creat Clear Calc 59.07 Est GFR (MDRD) Af Amer 82 Est GFR (MDRD) Non-Af 67 BUN/Creatinine Ratio 16.6 Glucose 101 Calcium 9.1 Troponin I High Sens 5 6 Radiography Diagnostic Testing: Clinical Impression(s) from Imaging Studies Chest X-Ray 03/28/22 18:20 IMPRESSION: Mild COPD. No acute disease. Electronically Signed: Rj Lopez MD at 18:35 EST , Discharge Plan Triage Chief Complaint: Chest Pain ED Provider: Tani Turk Dx/Rx/DC Orders Instructions: ED Chest Pain, Noncardiac Prescriptions: No Action paroxetine HCl 20 mg tablet 20 mg PO DAILY bupropion HCl 150 mg tablet sustained-release 12 hr 150 mg PO DAILY loratadine 10 mg capsule 10 mg PO DAILY diphenhydramine HCl [Sleep Aid (diphenhydramine)] 50 mg capsule 50 mg PO QHS Trelegy Ellipta 100-62.5-25 mcg blister with device 1 inh INHALATION DAILY Qty: 60 11RF albuterol sulfate 90 mcg/actuation HFA aerosol inhaler 1 - 2 puff INHALATION Q6H PRN PRN (Reason: Sob &/Or Wheezing) Qty: 18 6RF Orencia 50 mg/0.4 mL syringe 50 mg subcut QWEEK omeprazole 40 MG capsule 40 mg PO DAILY hydroxychloroquine 200 MG tablet 200 mg PO BIDCM potassium citrate 15 mEq tablet extended release 20 meq PO DAILY ibuprofen 200 mg Tablet 400 mg PO Q6H PRN (Reason: PAIN) Myrbetriq 25 mg Tablet Extended Release 24 Hr 25 mg PO DAILY clindamycin HCl 300 mg Capsule 300 mg PO Q6H methotrexate sodium 2.5 mg tablet 20 mg PO QWEEK Label Comments: TAKE 8 TABLETS BY MOUTHCONCE WEEKLY leucovorin calcium 5 mg tablet 5 mg PO QWEEK Label Comments: TAKE 1 TABLET BY MOUTHnONCE WEEKLY THE MORNING OF TAKING METHOTREXATE folic acid 1 mg tablet 1 mg PO BID Label Comments: TAKE 1 TABLET BY MOUTHEONCE DAILYT albuterol sulfate 2.5 mg /3 mL (0.083 %) solution for nebulization 2.5 mg INHALATION Q6H PRN (Reason: Wheezing) Qty: 180 3RF Primary Care Provider: Leon Pinto Chi Referrals: Leon Pinto Chi, MD [Primary Care Provider] - Disposition Disposition: Home, Self Care
[2022-03-28 20:00] VITALS: BP 148/78; PULSE 78; RESP 16; O2SAT 99
[2022-03-28 20:31] LABS: Reflex Troponin-HS? (from REC) Y
[2022-03-28 21:15] LABS: Troponin-I HS 6 pg/mL (3.0-54.0)
[2022-03-28 21:17] VITALS: BP 138/76; PULSE 64; RESP 18; TEMP 36.1; O2SAT 99
== END 2022-03-28 21:29 | disposition home or self-care (01) ==
PROVIDERS: Emergency Provider Student in an Organized Health Care Education/Training Program; PCP Family Medicine Geriatric Medicine; Visit Provider Student in an Organized Health Care Education/Training Program
DX: R07.9 Chest pain, unspecified (principal); J44.9 Chronic obstructive pulmonary disease, unspecified; F17.210 Nicotine dependence, cigarettes, uncomplicated
CPT/HCPCS: 71045; 80048; 84484; 85025; 93005; 99284; A4216

== ENCOUNTER → 2022-04-10 | Outpatient (CLI) | payer OTHER, SELFPAY ==
--- NOTE | 2022-04-10 16:57 | CT_ITS ---
STUDY: LOW DOSE CT LUNG CANCER SCREENING REASON FOR EXAM: Female, 62 years old. Smoker and gt; 30 pack years RADIATION DOSAGE (If Supplied By Facility): CTDIvol = ( 3.18 ) mGy, DLP = ( 110.40 ) mGycm TECHNIQUE: No contrast was administered. Low dose technique was utilized (average mAS-38 and kVp 120). 1.25 mm axial source images with a slice interval of 1.25-mm were reconstructed in lung windows. 2.5 mm axial source images with a slice interval of 2.5-mm were reconstructed in lung windows. 5.0 mm axial source images with a slice interval of 5.0-mm were reconstructed in soft tissue windows. COMPARISON: Comparison is made with prior examination dated 04/08/2021. NODULES: Stable focal area of groundglass opacity in the right upper lobe. This is seen on axial image #90. Stable 4 mm partially calcified nodule in the peripheral lateral aspect of the left lower lobe as seen on axial image #150. Emphysema: Mild degree of emphysematous changes. Endobronchial lesion: None Aorta: Atherosclerotic plaque formation of the aortic arch. CORONARY ARTERIES: Coronary artery calcification is seen. Heart: Unremarkable Pulmonary artery: Unremarkable Mediastinal nodes: Unremarkable Other chest and abdominal findings: CT/Low Dose CT Lung Screening IMPRESSION: Lung-RADS category 2 - Continue annual screening with LDCT in 12 months. IMPORTANT NOTES FOR USE: ACR Lung-RADS Version 1.1 Assessment Categories Release Date: 2018 Category: Coded 0-4 bases on nodule(s) with highest degree of suspicion. Negative screen is defined as categories 1 and 2; a positive screen is defined as categories 3 and 4. Category 3 and 4A nodules that are unchanged on interval CT should be coded as category 2, and individuals returned to screening in 12 months. Category 4X: Category 3 or 4 nodules with additional imaging findings that increase the suspicion of lung cancer, such as spiculation, GGN that doubles in size in 1 year, enlarged lymph notes, etc. Category Modifiers: S (significant finding unrelated to lung cancer) Electronically Signed: Beny Schwab MD at 13:17 EST ,
== END | disposition home or self-care (01) ==
LOC: CT 16:49
PROVIDERS: PCP Family Medicine Geriatric Medicine; Visit Provider Nurse Practitioner Acute Care
DX: F17.210 Nicotine dependence, cigarettes, uncomplicated (principal)
CPT/HCPCS: 71271

== ENCOUNTER → 2022-05-11 | Outpatient (CLI) | payer OTHER, SELFPAY ==
[2022-05-11 11:33] LABS: Erythrocyte Sedimentation Rate 8 mm/hr (0-30)
[2022-05-11 11:37] LABS: Absolute Lymphocyte Count 2.25 X10^3/uL (0.83-4.51); Absolute Neutrophil Count 5.5 X10^3/uL (2.0-7.7); Basophil# 0.05 X10^3/uL; Basophil% 0.6 % (0-1); Eosinophil# 0.05 X10^3/uL; Eosinophils% 0.6 % (0-5); Hematocrit 42.3 % (37-47); Hemoglobin 14.1 g/dL (12.0-15.0); Lymphocyte # 2.25 X10^3/ul (0.83-4.51); Lymphocyte % 26.3 % (19-41); Mean Corp Hgb Conc 33.3 g/dL (32-36); Mean Corpuscular Hgb 32.3 pg (27.0-32.0); Monocyte# 0.62 X10^3/uL; Monocyte% 7.2 % (0-10); NRBC Flagged by Analyzer 0 % (0-5); Neutrophil # 5.52 X10^3/uL (2.7-7.7); Neutrophil % 64.5 % (47-70); Platelet Count 360 K/mm3 (150-450); RBC Distribution Width SD 49.1 fl (35.1-43.9); Red Blood Count 4.36 M/mm3 (4.2-5.4); White Blood Count 8.6 K/mm3 (4.4-11.0)
[2022-05-11 11:42] LABS: AST(SGOT) 19 U/L (15-37); Alanine Aminotransfer ALT/SGPT 27 U/L (13-56); Albumin, Serum 3.6 g/dL (3.2-5.0); Alkaline Phosphatase 72 U/L (45-117); CRP 6.44 mg/L (0.0-3.0); Creatinine, Serum 0.88 mg/dL (0.55-1.02); EST Glomerular Filtration Rate 70 mL/min (>60); Est Glom Filt Rate - Afr Amer 84 mL/min (>60); Globulin 3.6 g/dL (2.2-4.2); Protein, Total 7.2 g/dL (6.4-8.2)
== END | disposition home or self-care (01) ==
LOC: LAB 10:37
PROVIDERS: PCP Family Medicine Geriatric Medicine; Visit Provider Internal Medicine Rheumatology
DX: M05.79 Rheumatoid arthritis with rheumatoid factor of multiple sites without organ or systems involvement (principal); Z79.899 Other long term (current) drug therapy
CPT/HCPCS: 36415; 80076; 82565; 85025; 85652; 86140

== ENCOUNTER → 2022-06-14 | Outpatient (CLI) | payer OTHER, SELFPAY ==
[2022-06-14 18:21] LABS: Absolute Lymphocyte Count 1.99 X10^3/uL (0.83-4.51); Absolute Neutrophil Count 4.1 X10^3/uL (2.0-7.7); Basophil# 0.02 X10^3/uL; Basophil% 0.3 % (0-1); Eosinophil# 0.08 X10^3/uL; Eosinophils% 1.2 % (0-5); Hematocrit 43.3 % (37-47); Hemoglobin 14.2 g/dL (12.0-15.0); Lymphocyte # 1.99 X10^3/ul (0.83-4.51); Lymphocyte % 28.8 % (19-41); Mean Corp Hgb Conc 32.8 g/dL (32-36); Mean Corpuscular Hgb 31.9 pg (27.0-32.0); Mean Corpuscular Volume 97.3 fL (81-99); Mean Platelet Vol. 10.1 fl (6.2-12.0); Monocyte# 0.74 X10^3/uL; Monocyte% 10.7 % (0-10); NRBC Flagged by Analyzer 0 % (0-5); Neutrophil # 4.06 X10^3/uL (2.7-7.7); Neutrophil % 58.7 % (47-70); Platelet Count 299 K/mm3 (150-450); RBC Distribution Width CV 13.2 % (11.6-14.6); RBC Distribution Width SD 47.5 fl (35.1-43.9); Red Blood Count 4.45 M/mm3 (4.2-5.4); White Blood Count 6.9 K/mm3 (4.4-11.0)
[2022-06-14 18:45] LABS: AST(SGOT) 21 U/L (15-37); Alanine Aminotransfer ALT/SGPT 29 U/L (13-56); Albumin, Serum 3.6 g/dL (3.2-5.0); Alkaline Phosphatase 84 U/L (45-117); Globulin 3.5 g/dL (2.2-4.2); Protein, Total 7.1 g/dL (6.4-8.2)
== END | disposition home or self-care (01) ==
LOC: MTLAB 14:13
PROVIDERS: PCP Family Medicine Geriatric Medicine; Referring Provider Internal Medicine Rheumatology; Visit Provider Internal Medicine Rheumatology
DX: M05.79 Rheumatoid arthritis with rheumatoid factor of multiple sites without organ or systems involvement (principal)
CPT/HCPCS: 36415; 80076; 85025

== ENCOUNTER → 2022-09-01 | Outpatient (CLI) | payer OTHER, SELFPAY ==
[2022-09-01 17:15] LABS: Absolute Lymphocyte Count 2.33 X10^3/uL (0.83-4.51); Basophil# 0.03 X10^3/uL; Basophil% 0.4 % (0-1); Eosinophil# 0.05 X10^3/uL; Eosinophils% 0.6 % (0-5); Hematocrit 44.3 % (37-47); Hemoglobin 14.7 g/dL (12.0-15.0); Lymphocyte # 2.33 X10^3/ul (0.83-4.51); Lymphocyte % 28.2 % (19-41); Mean Corp Hgb Conc 33.2 g/dL (32-36); Mean Corpuscular Hgb 31.2 pg (27.0-32.0); Mean Corpuscular Volume 94.1 fL (81-99); Mean Platelet Vol. 9.4 fl (6.2-12.0); Monocyte# 0.78 X10^3/uL; Monocyte% 9.4 % (0-10); NRBC Flagged by Analyzer 0 % (0-5); Neutrophil # 5.04 X10^3/uL (2.7-7.7); Neutrophil % 60.9 % (47-70); Platelet Count 291 K/mm3 (150-450); RBC Distribution Width CV 12.9 % (11.6-14.6); RBC Distribution Width SD 44.5 fl (35.1-43.9); Red Blood Count 4.71 M/mm3 (4.2-5.4); White Blood Count 8.3 K/mm3 (4.4-11.0)
[2022-09-01 17:19] LABS: Erythrocyte Sedimentation Rate 13 mm/hr (0-30)
[2022-09-01 18:12] LABS: AST(SGOT) 16 U/L (15-37); Alanine Aminotransfer ALT/SGPT 25 U/L (13-56); Albumin, Serum 3.5 g/dL (3.2-5.0); Alkaline Phosphatase 86 U/L (45-117); Bilirubin, Direct 0.09 mg/dL (0.00-0.30); CRP 6.57 mg/L (0.0-3.0); Globulin 3.7 g/dL (2.2-4.2); Protein, Total 7.2 g/dL (6.4-8.2)
[2022-09-02 14:11] LABS: EST Glomerular Filtration Rate 68 mL/min (>60); Est Glom Filt Rate - Afr Amer 82 mL/min (>60)
== END | disposition home or self-care (01) ==
LOC: LAB 16:04
PROVIDERS: PCP Family Medicine Geriatric Medicine; Referring Provider Internal Medicine Rheumatology; Visit Provider Internal Medicine Rheumatology
DX: M05.79 Rheumatoid arthritis with rheumatoid factor of multiple sites without organ or systems involvement (principal); Z79.899 Other long term (current) drug therapy
CPT/HCPCS: 36415; 80076; 82565; 82570; 85025; 85652; 86140

== ENCOUNTER → 2022-09-27 | Outpatient (CLI) | payer OTHER, SELFPAY ==
--- NOTE | 2022-09-27 15:12 | RAD_ITS ---
INDICATION: NECK PAIN EXAMINATION/TECHNIQUE: X-RAY - XR Spine Cervical 4 or 5 Views COMPARISON: No relevant prior comparison study available FINDINGS: VERTEBRAE: Preserved vertebral body height. No fracture. No spondylolisthesis. Preservation of the normal cervical lordosis. No significant facet arthropathy. DISCS: There is mild multilevel degenerative disease most pronounced at C5-C6 and C6-6-7. NECK SOFT TISSUES: No prevertebral soft tissue widening. There are carotid calcifications. LUNG APICES: Clear. RAD/Cerv Spine 2 or 3 Views IMPRESSION: Mild multilevel degenerative disc disease. Atherosclerosis. Electronically Signed: Keily Sinha MD at 9:10 EDT ,
== END | disposition home or self-care (01) ==
LOC: RAD 15:09
PROVIDERS: PCP Family Medicine Geriatric Medicine; Referring Provider Family Medicine Geriatric Medicine; Visit Provider Family Medicine Geriatric Medicine
DX: M62.838 Other muscle spasm (principal); M54.12 Radiculopathy, cervical region; M54.2 Cervicalgia
CPT/HCPCS: 72040

== ENCOUNTER → 2022-10-11 | Outpatient (CLI) | payer OTHER, SELFPAY ==
--- NOTE | 2022-10-11 09:15 | MRI_ITS ---
STUDY: MRI CERVICAL SPINE REASON FOR EXAM: Female, 62 years old. RADICULOPATHY TECHNIQUE: MRI examination of the cervical spine obtained with standard protocol including multiplanar multiecho Noncontrast imaging. Contrast: No contrast administered COMPARISON: No pertinent prior examinations for comparison. FINDINGS: Vertebral bodies and alignment: 1. Vertebral body height and alignment are maintained. No evidence of marrow edema, fracture or subluxation. 2. Prevertebral soft tissue planes have normal appearance. 3. Normal appearance the odontoid process and alignment of the craniocervical junction. 4. Multilevel cervical spondylosis with multilevel disc changes. 5. Normal appearance the posterior muscular fascial planes of the cervical spine, and the posterior ligamentous support structure the cervical spine is intact. Intervertebral disc levels: C2-3: Normal endplates. Normal disc height, signal and morphology. Normal central canal and intervertebral neural foramina. C3-4: Normal endplates. Normal disc height, signal and morphology. Normal central canal and intervertebral neural foramina. C4-5: Disc desiccation, broad-based mildly eccentric RIGHT greater than LEFT disc protrusion and osteophyte complex at, central canal is narrowed to 5 mm, there is cord contact cord compression or mild cord flattening. There is RIGHT foraminal narrowing due to uncovertebral joint hypertrophic changes. C5-6: Disc desiccation, broad-based disc protrusion osteophyte complex at, deformity the anterior epidural space at, and narrowing of the central canal to approximately 6 mm. There is cord contact and cord flattening without cord edema. Significant compromise of bilateral lateral recesses and neural foramina due to osteophyte formation greater on the LEFT than RIGHT with potential of bilateral C6 nerve root impingement. There is significant thickening of the posterior longitudinal ligament along posterior surface of C5. C6-7: Disc desiccation, broad-based concentric disc protrusion osteophyte complex at, central thecal sac is narrowed to approximately 7 mm. There is mild cord contact without acute cord compression. Bilateral foraminal stenosis is present greater on the LEFT than RIGHT. C7-T1: Normal endplates. Normal disc height, signal and morphology. Normal central canal and intervertebral neural foramina. Spinal CORD: Spinal cord has normal configuration with the exception of moderate flattening at the C4-5 level, and C5-C6. No evidence of cord edema, acute cord compression, or cord hemorrhage. No evidence of syrinx. No intramedullary signal abnormality, masses or syrinx. Normal appearance of the cervical medullary junction. No evidence cord compression. MRI/Spine Cervical (Routine) IMPRESSION: 1. Multilevel cervical spondylosis with broad-based disc herniation and osteophyte formation at C4-5 greater on the RIGHT than LEFT with canal stenosis cord contact and cord flattening. No cord edema. 2. Additional broad-based disc protrusion osteophyte complex at C5-6 and C6-7. Cord contact noted. There is narrowing of lateral recesses and neural foramina bilaterally at C5-6 with potential nerve root impingement bilaterally. 3. No evidence of cord edema, abnormal cord signal or syrinx however cord flattening is noted. Electronically Signed: Fuentes Loya MD at 23:19 EDT ,
== END | disposition home or self-care (01) ==
LOC: MRI 08:43
PROVIDERS: PCP Family Medicine Geriatric Medicine; Referring Provider Family Medicine Geriatric Medicine; Visit Provider Family Medicine Geriatric Medicine
DX: M54.12 Radiculopathy, cervical region (principal); M62.838 Other muscle spasm
CPT/HCPCS: 72141

== ENCOUNTER → 2022-10-12 | Outpatient (CLI) | payer OTHER, SELFPAY | END | disposition home or self-care (01) | PROVIDERS: PCP Family Medicine Geriatric Medicine; Referring Provider Family Medicine Geriatric Medicine; Visit Provider Family Medicine Geriatric Medicine | DX: R68.83 Chills (without fever) (principal) | CPT/HCPCS: 87635; 87804; 87807; C9803 ==

== ENCOUNTER → 2022-10-27 | Outpatient (CLI) | payer OTHER, SELFPAY | END | disposition home or self-care (01) | LOC: PSN 13:21 | PROVIDERS: PCP Family Medicine Geriatric Medicine; Referring Provider Family Medicine Geriatric Medicine; Visit Provider Family Medicine Geriatric Medicine | DX: R68.83 Chills (without fever) (principal) | CPT/HCPCS: 87635; 87804; 87807; C9803 ==

== ENCOUNTER → 2022-11-28 | Outpatient (CLI) | payer OTHER, SELFPAY ==
[2022-11-28 15:35] LABS: Absolute Lymphocyte Count 2.54 X10^3/uL (0.83-4.51); Absolute Neutrophil Count 7.3 X10^3/uL (2.0-7.7); Basophil# 0.06 X10^3/uL; Basophil% 0.6 % (0-1); Eosinophil# 0.05 X10^3/uL; Eosinophils% 0.5 % (0-5); Hematocrit 42.8 % (37-47); Lymphocyte # 2.54 X10^3/ul (0.83-4.51); Lymphocyte % 23.8 % (19-41); Mean Corp Hgb Conc 32.7 g/dL (32-36); Mean Corpuscular Hgb 32.1 pg (27.0-32.0); Mean Corpuscular Volume 98.2 fL (81-99); Monocyte# 0.67 X10^3/uL; Monocyte% 6.3 % (0-10); NRBC Flagged by Analyzer 0 % (0-5); Neutrophil # 7.27 X10^3/uL (2.7-7.7); Neutrophil % 67.9 % (47-70); Platelet Count 341 K/mm3 (150-450); RBC Distribution Width CV 14.2 % (11.6-14.6); RBC Distribution Width SD 51.1 fl (35.1-43.9); Red Blood Count 4.36 M/mm3 (4.2-5.4); White Blood Count 10.7 K/mm3 (4.4-11.0)
[2022-11-28 16:18] LABS: Hemoglobin A1c 5.2 % (3.8-5.6)
[2022-11-28 16:26] LABS: ALB/GLOB Ratio 0.9 RATIO (0.9-2.4); AST(SGOT) 13 U/L (15-37); Alanine Aminotransfer ALT/SGPT 23 U/L (13-56); Albumin, Serum 3.4 g/dL (3.2-5.0); Alkaline Phosphatase 75 U/L (45-117); Anion Gap 6 (5-15); BUN 16 mg/dL (7-18); BUN/Creat Ratio 16.3 RATIO (10-20); Calcium,Total 8.8 mg/dL (8.5-10.1); Chloride 108 mmol/L (98-107); Creatinine, Serum 0.98 mg/dL (0.55-1.02); EST Glomerular Filtration Rate 61 mL/min (>60); Est Glom Filt Rate - Afr Amer 74 mL/min (>60); Globulin 3.6 g/dL (2.2-4.2); Glucose 108 mg/dL (74-106); Potassium 3.8 mmol/L (3.5-5.1); Sodium Level 140 mmol/L (136-145); Thyroid Stim Hormone (TSH) 3.09 uIU/mL (0.358-3.74)
== END | disposition home or self-care (01) ==
PROVIDERS: PCP Family Medicine Geriatric Medicine; Visit Provider Family Medicine Geriatric Medicine
DX: R53.83 Other fatigue (principal); R73.9 Hyperglycemia, unspecified
CPT/HCPCS: 36415; 80053; 83036; 84443; 85025

== ENCOUNTER → 2023-02-22 | Outpatient (CLI) | payer OTHER, SELFPAY ==
[2023-02-22 17:44] LABS: Absolute Lymphocyte Count 2.53 X10^3/uL (0.83-4.51); Absolute Neutrophil Count 5.7 X10^3/uL (2.0-7.7); Basophil# 0.04 X10^3/uL; Basophil% 0.4 % (0-1); Eosinophil# 0.09 X10^3/uL; Hematocrit 43.9 % (37-47); Hemoglobin 14.5 g/dL (12.0-15.0); Lymphocyte # 2.53 X10^3/ul (0.83-4.51); Lymphocyte % 27.9 % (19-41); Mean Corpuscular Hgb 31.8 pg (27.0-32.0); Mean Corpuscular Volume 96.3 fL (81-99); Mean Platelet Vol. 9.2 fl (6.2-12.0); Monocyte# 0.67 X10^3/uL; Monocyte% 7.4 % (0-10); NRBC Flagged by Analyzer 0 % (0-5); Neutrophil # 5.66 X10^3/uL (2.7-7.7); Neutrophil % 62.5 % (47-70); Platelet Count 361 K/mm3 (150-450); RBC Distribution Width CV 13.8 % (11.6-14.6); RBC Distribution Width SD 48.1 fl (35.1-43.9); Red Blood Count 4.56 M/mm3 (4.2-5.4); White Blood Count 9.1 K/mm3 (4.4-11.0)
[2023-02-22 18:24] LABS: ALB/GLOB Ratio 1.1 RATIO (0.9-2.4); AST(SGOT) 17 U/L (15-37); Alanine Aminotransfer ALT/SGPT 26 U/L (13-56); Albumin, Serum 3.7 g/dL (3.2-5.0); Alkaline Phosphatase 87 U/L (45-117); Amylase 57 U/L (25-115); Anion Gap 6 (5-15); BUN 17 mg/dL (7-18); BUN/Creat Ratio 18.1 RATIO (10-20); Calcium,Total 9.7 mg/dL (8.5-10.1); Chloride 105 mmol/L (98-107); Creatinine, Serum 0.94 mg/dL (0.55-1.02); EST Glomerular Filtration Rate 64 mL/min (>60); Est Glom Filt Rate - Afr Amer 78 mL/min (>60); Globulin 3.5 g/dL (2.2-4.2); Glucose 94 mg/dL (74-106); Lipase 61 U/L (13-75); Potassium 3.8 mmol/L (3.5-5.1); Protein, Total 7.2 g/dL (6.4-8.2); Sodium Level 142 mmol/L (136-145)
--- OUTSIDE RECORDS SUMMARY | 2023-02-22 19:01 | XMS RPT_ITS | CCD ---
Author Name Unknown Address [address] [place] [address] Organization [facility] Care Team Providers Care Fire Control Technician G Name Role Phone UNASSIGNED, DOCTOR Primary Care Unavailable ABDULLAHI CRISTOBAL Attending Unavailable Problems Problem Classification Problem Date Documented Da te Episodic/Chronic Other upper respiratory infections (1 source) Acute sinusitis, unspecified Onset: 06-13-2018 Episodic Unclassified (2 sources) Fever, unspecified; Translations: [Fever, unspecified] Onset: 06-13-2018 Encounters Encounter Date Encounter Type Care Provider Facility Start: 06-13-2018 Patient encounter procedure DOCTOR U NASSIGNED Facility:UNKNOWN Payers Date Payer Category Payer Unknown [id number] Unknown [id number] Summary Purpose Family History No Family History Records Found Advance Directives No Advanced Directives Records Found Additional Source Comments (unrecognized sect ion and content) No Status Records Found INFORMATION SOURCE (unrecogn ized section and content) FOR RECORDS PERTAINING TO PATIENTS WHO ARE OR HAVE BEEN ENROLLED IN A CHEMICAL DEPENDENCY/SUBSTANCEABUSE PROGRAM, SOME INFORMATION MAY BE OMITTED. This clinical summary was aggregated from multiple sources. Caution should be exercised in using it in the provision of clinical care. This summary normalizes information from multiple sources, and as a consequence, information in this document may materially change the coding, format and clinical context of patient data. In addition, data may be omitted in some cases. CLINICAL DECISIONS SHOULD BE BASED ON THE PRIMARY CLINICAL RECORDS. [facility] [employer] provides no warranty or guarantee of the accuracy or completeness of information in this document.
== END | disposition home or self-care (01) ==
LOC: POLAB3 16:57
PROVIDERS: PCP Family Medicine Geriatric Medicine; Visit Provider Family Medicine Geriatric Medicine
DX: R10.9 Unspecified abdominal pain (principal)
CPT/HCPCS: 36415; 80053; 82150; 83690; 85025

== ENCOUNTER → 2023-03-08 | Outpatient (CLI) | payer OTHER, SELFPAY ==
--- NOTE | 2023-03-08 08:23 | CT_ITS ---
STUDY: CT ABDOMEN AND PELVIS WITH CONTRAST - URINARY TRACT REASON FOR EXAM: Female, 63 years old. PAIN RADIATION DOSAGE (If Supplied By Facility): CTDIvol = ( 16.78 ) mGy, DLP = ( 1168.92 ) mGycm TECHNIQUE: IV 100mL Isovue-[id number] was administered. Transaxial images were obtained from the dome of the diaphragm to the symphysis pubis in the arterial, nephrographic and excretory phases. Multiplanar coronal and sagittal images were reformatted. Individualized Dose Optimization Techniques Were Used For This CT. COMPARISON: CT of the chest dated March 11, 2020, April 08, 2021 and April 10, 2022 FINDINGS: Within the left lower lobe there is a stable 3.8 mm nodule. Within the right lower lobe, there are stable basilar groundglass opacities. The visualized portions of the heart are within normal limits. There is hepatomegaly. There are surgical clips in the gallbladder fossa consistent with a prior cholecystectomy. Normal spleen. Normal pancreas. Normal bilateral adrenal glands. There is a small hiatal hernia. Normal small intestine. There are multiple colonic diverticula consistent with diverticulosis. There is non-visualization of the appendix. There is diffuse atherosclerotic calcification of the abdominal aorta, without a demonstrated aneurysm. No retroperitoneal adenopathy. Normal right kidney. Normal left kidney. Normal urinary bladder. Normal abdominal wall. There are diffuse degenerative changes of the visualized lumbar spine. CT/Abdomen/Pelvis WITH Contrast IMPRESSION: Hepatomegaly. Hiatal hernia. Colonic diverticulosis. Atherosclerosis. Stable 3.8 mm left lower lobe nodule since March 11, 2020 suggesting a benign process. Electronically Signed: Keily Sinha MD at 10:58 EST ,
--- OUTSIDE RECORDS SUMMARY | 2023-03-08 08:35 | XMS RPT_ITS | CCD ---
Author Name Unknown Address [address] [place] [address] Organization [facility] Care Team Providers Care Director Corporate Sales Name Role Phone UNASSIGNED, DOCTOR Primary Care [...] Facility:UNKNOWN Payers Date Payer Category Payer Unknown [id number] Unknown [id number] Summary Purpose Family History No Family History [...] BE BASED ON THE PRIMARY CLINICAL RECORDS. [facility] [employer] provides no warranty or guarantee of the accuracy or completeness of information in this document.
== END | disposition home or self-care (01) ==
LOC: CT 08:21
PROVIDERS: PCP Family Medicine Geriatric Medicine; Referring Provider Family Medicine Geriatric Medicine; Visit Provider Family Medicine Geriatric Medicine
DX: R10.9 Unspecified abdominal pain (principal)
CPT/HCPCS: 74177; Q9967

== ENCOUNTER → 2023-04-24 | Outpatient (CLI) | payer OTHER, SELFPAY ==
--- NOTE | 2023-04-24 13:06 | RAD_ITS ---
INDICATION: BACK PAIN, SCIATICA EXAMINATION/TECHNIQUE: X-RAY - XR Spine Lumbar 2 or 3 Views COMPARISON: Prior study dated: 06/12/2019 FINDINGS: VERTEBRAE: Preserved vertebral body height. No fracture. Probable minimal retrolisthesis of L3 over L4. Preservation of the normal lumbar lordosis. Mild dextroscoliosis. DISCS: Mild narrowing of L4-5 disc space. Mild endplate spondylosis. INCLUDED ABDOMEN: Included bowel gas pattern is non-obstructive. RAD/Lumbar Spine 2 or 3 Views IMPRESSION: Degenerative changes of the lumbar spine as described above. Electronically Signed: Jerald Linda MD at 15:14 EST ,
--- OUTSIDE RECORDS SUMMARY | 2023-04-24 13:36 | XMS RPT_ITS | CCD ---
Author Name Unknown Address [address] [place] [address] Organization [facility] Care Team Providers Care Hazmat Cdl Driver Name Role Phone UNASSIGNED, DOCTOR Primary Care Unavailable ABDULLAHI CRISTOBAL Attending Unavailable Summer Steele MD Primary Care Provider [phone] Allergies Allergy Classification Reported Allergen(s) Allergy Type Date of Onset Reaction(s) Facility (1 source) adalimumab Drug Allergy 7 Other: See Comments, Rash [facility] (1 source) Adhesive agent Drug Allergy [address] [facility] (1 source) Penicillins Propensity to adverse reactions [address] [facility] Work Phone: (1 source) traMADol Drug Allergy 3 GI Upset [facility] Medications Completed/Discontinued Medications Medication Drug Class(es) Dates Sig (Normalized) Sig (Original) cholecalciferol 0.025 mg oral capsule (1 source) Vitamin D take 1 capsule by mouth once daily Cholecalciferol, Vitamin D3, (VITAMIN D) 1,000 unit cap Take 1,000 Units by mouth once daily. 0 Active Problems Active Problems Problem Classification Problem Date Documented Date Episodic/Chronic Abdominal pain (2 sources) Right upper quadrant pain; Translations: [Right upper quadrant pain] Onset: 04-27-2012 04-18-2023 Episodic Chronic obstructive pulmonary disease and bronchiectasis (1 source) Chronic bronchitis; Translations: [Unspecified chronic bronchitis] 12-23-2007 Chronic Esophageal disorders (1 source) Gastroesophageal reflux disease; Translations: [Gastro-esophageal reflux disease without esophagitis] 12-23-2007 Chronic Mood disorders (1 source) Depressive disorder; Translations: [Other specified depressive episodes] 12-23-2007 Chronic Nausea and vomiting (1 source) Nausea; Translations: [Nausea] 04-18-2023 Episodic Other liver diseases (1 source) Chronic nonalcoholic liver disease; Translations: [Other specified diseases of liver] 12-23-2007 Chronic Other screening for suspected conditions (not mental disorders or infectious disease) (1 source) CT of abdomen abnormal; Translations: [Abnormal findings on diagnostic imaging of liver and biliary tract] 04-18-2023 Episodic Other upper respiratory disease (1 source) Allergic rhinitis; Translations: [Other allergic rhinitis] 12-23-2007 Chronic Other upper respiratory infections (1 source) Acute sinusitis, unspecified Onset: 06-13-2018 Episodic Unclassified (2 sources) Fever, unspecified; Translations: [Fever, unspecified] Onset: 06-13-2018 Unclassified (1 source) PMH - PAST MEDICAL HISTORY OF 12-23-2007 Past or Other Problems Problem Classification Problem Date Documented Da te Episodic/Chronic Biliary tract disease (1 source) Disorder of gallbladder; Translations: [Other specified diseases of gallbladder] Onset: 12-23-2007 12-23-2007 Episodic Gastroduodenal ulcer (except hemorrhage) (1 source) Acute gastric ulcer; Translations: [Acute gastric ulcer without hemorrhage or perforation] Onset: 01-01-2008 01-01-2008 Episodic Vital Signs Date Time Vital Sign Value Performing Clinician Kassandra sharp 04-18-2023 09:31-0500 Body height 165.1 cm Phyllis Almeida PA-C Work Phone: [facility] 04-18-2023 09:31-0500 Body weight 110.68 kg Phyllis CARABALLO-Michael Work Phone: [facility] 04-18-2023 09:31-0500 Diastolic blood pressure 76 mm[Hg] Phyllis CARABALLO-C Work Phone: [facility] 04-18-2023 09:31-0500 Heart rate 74 /min Phyllis CARABALLO-C Work Phone: [facility] 04-18-2023 09:31-0500 Systolic blood pressure 132 mm[Hg] Phyllis CARABALLO-Michael Work Phone: [facility] Encounters Encounter Date Encounter Type Care Provider Facility Start: 04-18-2023 End: 04-18-2023 Patient encounter procedure Phyllis Almeida PA-C Work Phone: [facility] Procedures Date Procedure Procedure Detail Performing Clinician Start: 04-26-2012 Colonoscopy Phyllis vee PA-C Work Phone: Plan of Treatment Date Care Activity Detail Author Start: 10-20-2022 Covid-19 Vaccine () Covid-19 Vaccine () [facility] Start: 04-26-2022 Screening for malignant neoplasm of colon [facility] Start: 2021 Hepatitis B Vaccine (1 of 3 - Risk 3-dose series) Hepatitis B Vaccine (1 of 3 - Risk 3-dose series) [facility] Start: 2021 RSV Vaccine (1 - 1-dose 60+ series) RSV Vaccine (1 - 1-dose 60+ series) [facility] Start: 2011 Shingrix Vaccine (1 of 2) Shingrix Vaccine (1 of 2) [facility] Start: 08-02-2007 Screening for malignant neoplasm of cervix Pap Testing [facility] Start: 2006 Diabetes Screening Diabetes Screening [facility] Start: 2006 Lipid panel Lipid Screening [facility] Start: 2006 Screening for malignant neoplasm of colon [facility] Start: 2001 Screening for malignant neoplasm of breast Mammogram Screening [facility] Start: 1991 Screening for malignant neoplasm of cervix HPV Testing [facility] Start: 02-20-1980 Hepatitis A Vaccine (1 of 2 - Risk 2-dose series) Hepatitis A Vaccine (1 of 2 - Risk 2-dose series) [facility] Start: 02-20-1980 Urine microalbumin profile DTaP,Tdap,Td Vaccine (1 - Tdap) [facility] Start: 1979 Hepatitis C screening Hepatitis C Screening [facility] Start: 1979 HIV screening HIV Screening [facility] Start: 1967 Pneumococcal vaccination Pneumococcal Vaccine (1 of 2 - PCV) [facility] End: 04-18-2024 EGD DIAGNOSTIC EGD DIAGNOSTIC Endoscopy Routine Chronic RUQ pain Nausea 1 Occurrences starting 04/18/2023 until 04/18/2024 [facility] Work Phone: Payers Date Payer Category Payer Private Health Insurance JEOLLEN ALLRED [id number] 2023-Present [phone] [address] [place] [id number] PPO [id number] 1960 Unknown [id number] Unknown [id number] Social History Date Type Detail Facility Start: 04-18-2023 Tobacco smoking stat [facility] Smokes tobacco daily [facility] Start: 04-18-2023 Tobacco use and exposure Smoke less tobacco non-user 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 Start: 04-18-2023 History of Social function [facility] Start: 04-18-2023 Tobacco use panel [facility] National Score (1-10 0), lower number is lower risk [address] [facility] Start: 1960 Sex Assigned At Not on file C [facility] Instructions 04-18-2023 Patient Instructions Note Date & Type Note Facility 04-18-2023 Instructions Phyllis Almeida PA-C - 04/18/2023 9:58 AM EST Images from the original note were not included. Gastroesophageal Reflux Disease (GERD) Heartburn is a burning sensation in the center of your chest that often occurs after you eat, bend over, exercise, and sometimes at night when you are lying down. Approximately one in 10 adults has heartburn at least once a week and one in three monthly. Some women experience heartburn almost daily as a result of increased pressure on the abdomen and hormonal changes. Despite its name, heartburn has nothing to do with your heart. Heartburn symptoms indicate a condition called gastroesophageal reflux disease, or GERD. This fact sheet offers some tips on how to relieve heartburn caused by this condition. What is GERD? When you swallow, food passes down your throat and through your esophagus to your stomach. A muscle called the lower esophageal sphincter controls the opening between the esophagus and the stomach. The muscle remains tightly closed except when you swallow food. When this muscle fails to close, the acid-containing contents of the stomach can travel back up into the esophagus. This backward movement is called reflux. When stomach acid enters the lower part of the esophagus, it can produce a burning sensation, commonly referred to as heartburn. Several factors might explain why this reflux action occurs and might offer some clues for relief. The most important are: The position of your body after eating (An upright posture helps prevent reflux.) The size of the meal (Smaller meals reduce reflux.) The nature of foods you consume (Certain substances that irritate the esophagus or weaken the sphincter can cause reflux.) How is GERD treated? To treat GERD, we recommend the following: Raise the head of your bed by six inches to allow gravity to help keep the stomach's contents in the stomach. (Do not use piles of pillows because this puts your body into a bent position that actually aggravates the condition by increasing pressure on the abdomen.) Eat meals at least three to four hours before lying down, and avoid bedtime snacks. Eat moderate portions of food and smaller meals. Maintain a healthy weight to eliminate unnecessary intra-abdominal pressure caused by extra pounds. Limit consumption of fatty foods, chocolate, peppermint, coffee, tea, waqas, and alcohol - all of which relax the lower esophageal sphincter. Also, avoid tomatoes and citrus fruits or juices, which contribute additional acid that can irritate the esophagus. Give up smoking, which also relaxes the lower esophageal sphincter. Wear loose belts and clothing. What if my GERD and heartburn persist? Many people will get relief from heartburn, and the pressure that goes with esophageal reflux, by following the tips above. Ltro-tub-tfudhih liquid antacids can also help in treating occasional heartburn. If your symptoms persist, do not respond to treatment, or occur often, you need to see a doctor for testing and treatment. A visual examination of the esophagus, known as an endoscopy, might be necessary. Sometimes this test shows that the lining of the esophagus is severely inflamed and irritated by stomach acid. This condition, known as esophagitis, might lead to bleeding and difficulty in swallowing. Medical treatment for this condition might be necessary. This usually involves blocking acid production in the stomach. Ocvg-mmv-wtftofe medicines, such as Tums , Rolaids , Maalox , Zantac , Tagamet , Prilosec, ,Pepcid , and Axid , can generally relieve esophageal reflux symptoms. Patients with more severe symptoms or those who have been using antacids for more than two weeks should contact their doctors, who can prescribe medicines to control or eliminate acid, such as H2-receptor antagonists and proton pump inhibitors. Only a few people need surgery to correct the disorder. documented in this encounter [facility] History of Present illness Narrative 04-18-2023 Phyllis Almeida PA-C - 04/18/2023 9:26 AM EST Note Date & Type Note Facility 04-18-2023 History of Presen t illness Narrative CHIEF COMPLAINT: Patient presents with: Enlarged liver: Labs 02/22/23 HPI: Monica Jorge is a 63 year old female with PMHx positive for COPD, GERD, NAFLD, RA who presents for Enlarged liver (Labs 02/22/23). Surg hx pos for venkata, appendectomy. On Bentyl PRN, Prilosec 40 mg daily. Admits to chronic right sided abdominal pain for the past year. Pain is in RUQ, waxes/wanes, 1-3/10, no alleviating factors. Associated sx of nausea w/o emesis, early satiety. Has been PPI for the past 10 yrs with good relief in GERD. No recent EGD. Bms are regular, no blood. Bentyl PRN works well for intermittent loose stools. Takes ibuprofen daily for chronic arthritic pains with relief. Denies unintentional weight loss, emesis. Reports Colon 02/2022 w/ [facility] w/ Dr. Hidalgo, told she had polyps and repeat in 5 yrs 02/2023 CBC, CMP WNL 02/2023 CT abd/pelv [facility] Hepatomegalty Diverticulosis Atherosclerosis Stable left lower lung nodule (3.8 mm) Record Review: [facility] / Outside records reviewed. PAST MEDICAL HISTORY Diagnosis Date Allergic rhinitis due to other allergen COPD (chronic obstructive pulmonary disease) (HCC) Depressive disorder, not elsewhere classified Esophageal reflux GERD (gastroesophageal reflux disease) Other chronic bronchitis PMH - PAST MEDICAL HISTORY OF Fatty LIver Rheumatoid arthritis (HCC) Sleep apnea PAST SURGICAL HISTORY Procedure Laterality Date APPENDECTOMY 1978 COLONOSCOPY FLX DX W/COLLJ SPEC WHEN PFRMD 04/26/2012 Normal - 10 year follow up COLONOSCOPY SCREENING 03/13/2022 EGD TRANSORAL BIOPSY SINGLE/MULTIPLE 12/24/2007 ESOPHAGOGASTRODUODENOSCOPY TRANSORAL DIAGNOSTIC 04/26/2012 Normal LAPS SURG CHOLECYSTECTOMY W/CHOLANGIOGRAPHY 12/11/2008 Normal IOC Allergies: ALLERGIES Allergen Reactions Adalimumab Other: See Comments, Rash Adhesive Rash Penicillins Tremadol [Tramadol] GI Upset Made PT not want to eat, became dehydrated Medications: Magnesium 250 mg tab Take 250 mg by mouth. omeprazole (PRILOSEC) 40 mg capsule Take 40 mg by mouth once daily. dicyclomine (BENTYL) 20 mg tablet Take 20 mg by mouth before meals and at bedtime. diphenhydrAMINE HCL (BENADRYL ALLERGY) 50 mg tablet Take 50 mg by mouth at bedtime as needed. mirabegron (MYRBETRIQ) 25 mg Tb24 Take by mouth. bucmwjpiocv-alpkdoodk-qwncxykf (TRELEGY ELLIPTA) 100-62.5-25 mcg inhalation powder Inhale 1 Puff as instructed once daily. FLUoxetine (PROZAC) 10 mg capsule Take 10 mg by mouth once daily. traZODone (DESYREL) 50 mg tablet Take 50 mg by mouth daily at bedtime. ibuprofen (MOTRIN) 200 mg tablet Take 200 mg by mouth every 6 hours as needed. Cholecalciferol, Vitamin D3, (VITAMIN D) 1,000 unit cap Take 1,000 Units by mouth once daily. hydroxychloroquine (PLAQUENIL) 200 mg tablet Take by mouth twice daily. Potassium 20 mg Chew Take by mouth. FAMILY HISTORY Problem Relation Age of Onset Hypertension Mother Lipids Mother Alcohol/Drug Father Cancer Father Neck/Throat Psychiatry Father Alcohol/Drug Brother Allergies Brother Psychiatry Brother commited suicide Allergies Maternal Grandfather Hypertension Maternal Grandfather Heart Maternal Grandfather Lipids Maternal Grandfather Psychiatry Paternal Grandmother commited suicide Colon Cancer No Family History Employer And Job Title: None on file Years Of Education Completed: Not specified Marital Status: Social History Tobacco Use Smoking status: Every Day Smokeless tobacco: Never Vaping Use Vaping Use: Never used Substance Use Topics Alcohol use: No Drug use: No Review of Systems: Review of Systems Respiratory: Positive for cough and shortness of breath. Gastrointestinal: Positive for abdominal pain, diarrhea (controlled with Bentyl) and nausea. All other systems reviewed and are negative. Are you taking any blood thinners? No Physical Examination: BP 132/76 Pulse 74 Ht 165.1 cm (5' 5 ) Wt 110.7 kg (244 lb) BMI 40.60 kg/m Physical Exam Constitutional: General: She is not in acute distress. Appearance: Normal appearance. She is obese. She is not ill-appearing, toxic-appearing or diaphoretic. HENT: Head: Normocephalic and atraumatic. Nose: Nose normal. Eyes: General: No scleral icterus. Right eye: No discharge. Left eye: No discharge. Extraocular Movements: Extraocular movements intact. Conjunctiva/sclera: Conjunctivae normal. Pupils: Pupils are equal, round, and reactive to light. Cardiovascular: Rate and Rhythm: Normal rate and regular rhythm. Pulses: Normal pulses. Heart sounds: Normal heart sounds. No murmur heard. No friction rub. No gallop. Pulmonary: Effort: No respiratory distress. Breath sounds: Normal breath sounds. No stridor. No wheezing, rhonchi or rales. Chest: Chest wall: No tenderness. Abdominal: General: Abdomen is flat. Bowel sounds are normal. There is no distension. Palpations: Abdomen is soft. There is no mass. Tenderness: There is abdominal tenderness (Mild TTP RUQ). There is no right CVA tenderness, left CVA tenderness, guarding or rebound. Hernia: No hernia is present. Musculoskeletal: General: Normal range of motion. Cervical back: Normal range of motion and neck supple. Skin: General: Skin is warm and dry. Neurological: General: No focal deficit present. Mental Status: She is alert and oriented to person, place, and time. Psychiatric: Mood and Affect: Mood normal. Behavior: Behavior normal. Assessment/Plan (R10.11, G89.29) Chronic RUQ pain (primary encounter diagnosis) (R11.0) Nausea (R93.2) Abnormal CT of liver 1. Chronic RUQ pain - EGD DIAGNOSTIC; Future - Continue Prilosec 40 mg daily, Bentyl PRN - EGD to r/o PUD, H. Pylori, Celiac - Discussed GERD precautions and provided edu handout - Encouraged NSAID cessation, may use Tylenol PRN - Pt declined any further med adjustments for now 2. Nausea - EGD DIAGNOSTIC; Future 3. Abnormal CT of liver - US ABD RIGHT UPPER QUADRANT; Future - H/O hepatomegaly, will check follow up RUQ US. If persistent fatty liver, will need fibroscan Recommended to please call office/go to ER if fever, chills, chest pain, SOB, diarrhea, nausea, emesis, worsening abdominal pain, dehydration occurs I spent a total of 20 minutes on the date of the service which included preparing to see the patient, fvia-nb-sptr patient care, completing clinical documentation, obtaining and/or reviewing separately obtained history, performing a medically appropriate examination, counseling and educating the patient/family/caregiver, ordering medications, tests, or procedures, communicating with other HCPs (not separately reported), independently interpreting results (not separately reported), communicating results to the patient/family/caregiver, and care coordination (not separately reported). Phyllis Almeida PA-C April 18, 2023 10:00 AM documented in this encounter [facility] Evaluation note Note Date & Type Note Facility documented in this encounter [facility] Reason for referral (narrative) Outpatient Procedure (Routine) - Authorized Note Date & Type Note Facility Referral ID Status Reason Start Date Expiration Date Visits Requested Visits Authorized [id number] Authorized Auto-Generat ed Referral 04/18/2023 04/18/2024 1 1 * Diagnostic Procedure Only (Routine) - Authorized Specialty Diagnoses / Procedures Referred By Contac t Referred To Contact [facility] Diagnoses Abnormal CT of liver Procedures US ABD RIGHT UPPER QUADRANT US ABDOMINAL REAL TIME W/IMAGE LIMITED Phyllis Almeida PA-C [address] [place] [address] [place] [address] Referral ID Status Reason Start Date Expiration Date Visits Requested Visits Authorized [id number] Authorized Auto-Generat ed Referral 04/18/2023 05/17/2024 1 1 [facility] Summary Purpose Family History No Family History Records Found Advance Directives No Advanced Directives Records Found Additional Source Comments (unrecognized sect ion and content) No Status Records Found INFORMATION SOURCE (unrecogn ized section and content) Source Comments (unrecognize d section and content) In the event this informatio n is protected by the Federal Confidentiality of Alcohol and Drug Abuse Patient Records regulations: The Federal rules restrict any use of the information to criminally investigate or prosecute any alcohol or drug abuse patient.[facility] Reason for Visit (unrecogniz ed section and content) Care Teams (unrecognized sec tion and content) FOR RECORDS PERTAINING TO PATIENTS [...] BE BASED ON THE PRIMARY CLINICAL RECORDS. [facility] Reviews & Information [facility]. provides no warranty or guarantee of the accuracy or completeness of information in this document.
== END | disposition home or self-care (01) ==
LOC: MTRAD 12:46
PROVIDERS: PCP Family Medicine; Referring Provider Family Medicine; Visit Provider Family Medicine
DX: M54.9 Dorsalgia, unspecified (principal)
CPT/HCPCS: 72100

== ENCOUNTER → 2023-04-25 | Outpatient (CLI) | payer OTHER, SELFPAY ==
--- NOTE | 2023-04-25 15:46 | CT_ITS ---
STUDY: LOW DOSE CT LUNG CANCER SCREENING REASON FOR EXAM: Female, 63 years old. smoker ,one pack per day x40 years RADIATION DOSAGE (If Supplied By Facility): CTDIvol = ( 4.02 ) mGy, DLP = ( 138.93 ) mGycm TECHNIQUE: No contrast was administered. Low dose technique was utilized (average mAS-38 and kVp 120). 1.25 mm axial source images with a slice interval of 1.25-mm were reconstructed in lung windows with coronal sagittal reformats COMPARISON: April 10, 2022, April 08, 2021, March 11 2020 NODULES: Nodule #: 1 Density: Groundglass Lung location: Anterior lateral right upper lobe lobe: 1.1 cm from pleura Location in series: Series Number: 2 Image: 65 Size - D1 x D2 mm: 3 x 3 mm: 3 average diameter Margin: Irregular Shape: Round round Calcification: None Fat: None Temporal comparison: Unchanged from April 08, 2021 Nodule #: 2 Density: Groundglass Lung location: Anterior medial right upper lobe: Abutting pleura Location in series: Series Number: 2 Image: 90 Size - D1 x D2 mm: 40 x 31 mm: 35 mm average diameter Margin: Irregular Shape: Oval Calcification: None Fat: None Temporal comparison: Not significantly changed from March 11, 2020 Nodule #: 3 Density: Solid Lung location: Lateral left lower lobe: 4 mm from pleura Location in series: Series Number: 2 Image: 151 Size - D1 x D2 mm: 4 x 4 mm: 4 mm average diameter Margin: Irregular Shape: Round Calcification: Partially calcified Fat: None Temporal comparison: Not significantly changed from March 11, 2020 No new or enlarging pulmonary nodules Parenchyma: No airspace consolidation, effusion, pneumothorax. Endobronchial lesion: Mild bilateral peribronchial thickening. No endobronchial lesion. Mild atelectasis along the lateral right lower lobe. Mild right posterior lateral diaphragm eventration. Aorta: Aortic atherosclerosis without ectasia or CORONARY ARTERIES: Moderate multivessel coronary atherosclerosis. Heart: No cardiomegaly or pericardial effusion. Pulmonary artery: No main pulmonary arterial enlargement. Mediastinal nodes: No mediastinal or bulky hilar adenopathy. Other chest and abdominal findings: Unremarkable thyroid. Unremarkable esophagus. Limited upper abdominal visualization. No acute osseous finding. Mild chronic anterior vertebral height loss in the lower thoracic spine with mildly exaggerated kyphosis. CT/Low Dose CT Lung Screening IMPRESSION: Continued stability of right right lung groundglass opacities in the left lateral lung solid nodule. Moderate multivessel coronary atherosclerosis. Lung-RADS category 2 - Continue annual screening with LDCT in 12 months. IMPORTANT NOTES FOR USE: ACR Lung-RADS Version 1.1 Assessment Categories Release Date: 2018 Category: Coded 0-4 bases on nodule(s) with highest degree of suspicion. Negative screen is defined as categories 1 and 2; a positive screen is defined as categories 3 and 4. Category 3 and 4A nodules that are unchanged on interval CT should be coded as category 2, and individuals returned to screening in 12 months. Category 4X: Category 3 or 4 nodules with additional imaging findings that increase the suspicion of lung cancer, such as spiculation, GGN that doubles in size in 1 year, enlarged lymph notes, etc. Category Modifiers: S (significant finding unrelated to lung cancer) Electronically Signed: Ej Benito MD at 9:17 EST ,
== END | disposition home or self-care (01) ==
PROVIDERS: PCP Family Medicine; Referring Provider Nurse Practitioner Acute Care; Visit Provider Nurse Practitioner Acute Care
DX: Z12.2 Encounter for screening for malignant neoplasm of respiratory organs (principal); F17.210 Nicotine dependence, cigarettes, uncomplicated
CPT/HCPCS: 71271

== ENCOUNTER → 2023-05-07 | Outpatient (CLI) | payer OTHER, SELFPAY | END | disposition home or self-care (01) | LOC: SL 13:19 | PROVIDERS: PCP Family Medicine; Visit Provider Internal Medicine Critical Care Medicine | DX: Z00.00 Encounter for general adult medical examination without abnormal findings (principal) ==

== ENCOUNTER 2023-06-12 16:30 | Outpatient (RCR) | payer OTHER, SELFPAY ==
--- NOTE | 2023-05-08 17:04 | HP.PTEVAL_ITS ---
Patient's Visit Information Visit Information Visit Information: LAUREN MALDONADO is a 63 year old F referred to Physical Therapy by Summer Steele MD with a diagnosis of Back pain. Date of Evaluation: 05/08/23 Physical Therapist: Zachary Toavr DPT, OCS, CSCS Visit Plan Frequency: 2-3x /Week Duration: 4-6 Weeks Plan: 2-3x/week for 4 weeks for pool instructiona nd treat for LB ROM, postural focus, core, UE, LE strength, HS stretching, gastroc stretching. Particular focus on posture would be appreciated during exercise. Work to [employer] pool program as member. Subjective Subjective: Legs hurt more than back and insidious onset one month ago. Legs hurt posterior calf and into knees and into R groin and Buttocks R >L. LB hurts. Hurts alot lying in bed, Has RA. Took off methotrexate due to liver problems. that may be why she hurts. Meds help. Also gets numbness in R middle toes constantly and a month ago started. Sleep is terrible due to pain but has improved. No regular exercises, did get back in the pool when this started but it did not help. 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 walking a little bit. Basic ADLs: doing the basics. Limited in walking dog when flared up. Hobbies: wants to hike. Pain LB and legs: Pain Intensity (Out of 10): 0 Pain Intensity Range: 0 and 8 Comment: lying in bed Objective Objective: Walks safe and I, but slow. Transfers slow but hesitant due to pain. Steps reciprocal with one rail and shows weakness but no increased pain. LB AROM ext mod limited, flexion mod limited, SB min limitied B. Pain mostly with extension. - SLR and slump but tight and stretching in HS is painful to her. reflexes 2/3 patella and achilles Sensation is WNL to gross light touch in LE strength hips 3, knees 4- B, ankles 4 B, no myotomal problems. Balance/Special Test Scores Oswestry Low Back Score: 18 Goals Goal 1:: Pt I in appropriate pool exercises to limit futre problems. Goal Time Frame: 4-6 Weeks Goal 2:: Back and leg pain 50% better adn 3/10 at worst Goal Time Frame: 4-6 Weeks Goal 3:: walk dog without increased pain consistently Goal Time Frame: 4-6 Weeks Goal 4:: Sleep without interruption from pain Goal Time Frame: 4-6 Weeks Rehabilitation Potential Physical Therapy Diagnosis: Back pain, limited ROM, tightness and weakness causing discomfort with funciton. Rehabilitation Potential: Fair Anticipated Interventions Patient/Client Instruction: Educate patient on: Condition and Risk Factors For the Purpose of:: To decrease pain, To increase ROM, To improve nutrient delivery to tissue, To improve muscle performance and motor function, To increase tolerance to activity/condition/position, To improve ability of physical actions for home/community/work/leisure and To improve gait and locomotor functions Therapeutic Exercise to Include: Strength training, Postural training, Flexibilty training, In an aquatic setting, Passive ROM, Active ROM, Dynamic Lumbar Stabilization and Scapular Strength/Stabilization For the Purpose of:: To decrease pain, To increase ROM, To improve nutrient delivery to tissue, To increase oxygenation perfusion, To improve ability to perform ADL's, To increase tolerance to activity/condition/position, To improve ability of physical actions for home/community/work/leisure and To improve gait and locomotor functions Text: Thank you for the opportunity to evaluate your patient. For Medicare and Medicare HMO plans, please review the plan of care and approve it. It will need to be FAXED BACK to us at [phone] for Medicare purposes. For Medicare only, by signing this I certify the plan of care. Please let me know if there are questions or concerns regarding this plan of care. Physician Signature: Date:
--- NOTE | 2023-06-12 16:48 | HP.PTDCSUM ---
Discharge Summary D/C summary: It has been my pleasure to treat LAUREN MALDONADO referred by Summer Steele MD, with the diagnosis of Back pain for a total of 10 visit(s). Discharge Date: 06/12/23 Please see the following information for a summary of their discharge status. Subjective Subjective: Fantastic. Enjoyed the water. been in pool nearly daily. Much better than when she started. R leg remains weak. Most noticeable when tired in the pool. Is now able to sleep without waking up, still some pain in the am. Has not walked a really long distance. got very painful in leg 2 weeks ago when she tried. That was about two blocks. Not getting that feedling any other time. Saw PCp the other day and was good. May see pain doctor soon but might cancel it. Will continue daily in the water. Pain LB and legs: Pain Intensity (Out of 10): 0 Overall Improvement % Improvement: 90 Objective Objective/Function: mod ext limitations with some mid back tenderness, flexion is full but HS limits. SB are [id number]. Walking well and transitioning well without hesitation, steps reciprocally with one rail. Goals Goal 1:: Pt I in appropriate pool exercises to limit futre problems. Goal Progress: Goal Met Goal 2:: Back and leg pain 50% better adn 3/10 at worst Goal Progress: Goal Met Goal 3:: walk dog without increased pain consistently Goal Progress: short distances Goal 4:: Sleep without interruption from pain Goal Progress: Goal Met Plan Plan: d./c to I pool program D/C Information Discharge Comments: will continue I pool program. d/c sentence: If there are questions or concerns regarding this patient's physical therapy, please feel free to call me at [phone]. Thank you for the referral of this patient. Sincerely, Zachary Tovar, DPT, OCS, CSCS Balance/Gait/Functional tests Balance/Special Test Scores Oswestry Low Back Score: 8 Improvement % Improvement: 90
== END 2023-06-12 19:00 | disposition home or self-care (01) ==
LOC: PT 16:30
PROVIDERS: PCP Family Medicine; Referring Provider Family Medicine; Visit Provider Family Medicine
DX: M54.9 Dorsalgia, unspecified (principal)
CPT/HCPCS: 97113; 97161; 97164

== ENCOUNTER 2023-08-06 09:37 | Day surgery (SDC) | payer OTHER, SELFPAY ==
[2023-08-06] VITALS (8 sets, daily range): BP systolic 104–116; BP diastolic 67–82; PULSE 65–74; RESP 14–16; TEMP 36.2–37.1; O2SAT 94–99; BMI 35.7
[2023-08-06] MEDS: Lactated Ringers 1,000 ML 15 ML IV (10:26)
--- NOTE | 2023-08-06 10:30 | PCM.PRE.AN2 ---
ASA Classification* ASA Classification ASA Classification: 3 Assessment & Plan Anesthesia* Anesthesia Assessment Anesthesia Assessment: Discussed sedation and/or anesthesia options, risks, benefits, and alternatives with patient/parents/legal guardian/POA. Questions invited. The patient/parents/legal guardian/POA seems to understand and agrees to proceed with anesthesia plan. Reviewed the physical assessment, medical history, allergy history and patient home medications list prior to surgery/procedure/anesthetic and documented any changes. Performed airway and anesthesia risk assessments. Anesthesia Type Anesthesia Type: MAC Pre-Assessment Diagnosis/Proposed Procedure Planned Operative Procedure(s): CAUDAL EPIDURAL STEROID INJECTION Anesthesia History Anesthesia History - manager wastewater: Anesthesia History - manager wastewater Hx Hospitalization No 07/31/23 10:16 Any Problems With Anesthesia No 07/31/23 10:16 Cholinesterase deficiency No 07/31/23 10:16 You/Your Family Experience No 07/31/23 10:16 fever (hyperthermia) with Relationship Recent Exposure to Contagious No 08/06/23 10:23 Disease Does patient have nerve No 07/31/23 10:16 stimulator Patient instructed to have device shut off --Does patient have Pacemaker No 08/06/23 10:23 or ICD? When Was Last Pacemaker Check QUESTION #4 FULL TEXT: You/Your Family Experience fever (hyperthermia) with Anesthesia Last Oral Intake Last Oral intake: Last Oral Intake NPO since Meds taken in AM with sips of water? Meds patient instructed to take am of surgery PONV PONV - manager wastewater: PONV - manager wastewater Female Yes 07/31/23 10:16 HX of Motion Sickness Yes 07/31/23 10:16 HX of N/V After Surgery No 07/31/23 10:16 Non-Smoker Yes 07/31/23 10:16 Duration of Surgery greater No 07/31/23 10:16 than 60 minutes Number of Risk Factors 3 07/31/23 10:16 PONV Score Moderate Risk 07/31/23 10:16 Height & Weight Height & Weight: Anesthesia: Height & Weight Height 5 ft 5 in 08/06/23 10:23 Weight: 97.4 kg 08/06/23 10:23 Body Mass Index (BMI) 35.7 08/06/23 10:23 Respiratory Assessment Respiratory Assessment - manager wastewater: Respiratory Tract Infection Hx - manager wastewater Hx Respiratory Tract Infection No 07/31/23 10:16 STOP Sleep Apnea STOP Sleep Apnea - manager wastewater: STOP Sleep Apnea - manager wastewater Hx Hypertension No 07/31/23 10:16 Hx Sleep Apnea Yes 07/31/23 10:16 CPAP Yes 07/31/23 10:16 BIPAP No 07/31/23 10:16 Do you snore loudly (louder than talking or can be heard Do you often feel tired/ fatigued/ sleepy during daytime? Has anyone observed you stop breathing during sleep? STOP Results Positive 07/31/23 10:16 QUESTION #5 FULL TEXT : Do you snore loudly (louder than talking or can be heard through closed doors)? Tobacco Use History Tobacco Use History - manager wastewater: Tobacco Use History - manager wastewater Tobacco Use Smoking Status Current every day smoker 07/31/23 10:16 Hx Tobacco Use Yes 07/31/23 10:16 Years Smoking Packs Smoked per Day Smoking Cessation Date was within the last 15 years Hx Smoking Cessation Date Hx Smoking Cessation Counseling Hematologic Medial History Hematologic Hx - manager wastewater: Hematologic Medical Hx - dietary assistant Hx of Blood Transfusion No 07/31/23 10:16 Hx of Transfusion in last 3 No 07/31/23 10:16 Months Date of Last Transfusion (if within last 3 months) Ever experience any problems No 07/31/23 10:16 with transfusion(s)? Specify any problems Hx of Preganancy in last 3 No 07/31/23 10:16 Months Nurse Filling Out Transfusion [email or web address] 07/31/23 10:16 & Questions: Date: 07/31/23 07/31/23 10:16 Time: 10:19 07/31/23 10:16 Patient unable to answer at this time (ie. confused, unrespo /Reproduction History /Reproductive History - manager wastewater: /Reproductive Hx- manager wastewater Hx Now Gestational Age (in weeks): EDC: Hx Hx Para Hx Section SAB Active Medications Active Medications: Current Medications Generic Name Dose Route Start Last Admin Trade Name Freq PRN Reason Stop Dose Admin Lactated Ringer's 1,000 mls @ 15 mls/hr 08/06/23 10:00 08/06/23 10:26 IV 15 mls/hr .Q48H JESSICA Administration Anesthesia Focused Assessment* Temperature: 98.8 F Pulse Rate: 67 Blood Pressure: 116/67 Respiratory Rate: 16 Pulse Ox: 97 Airway Assessment Mouth opens: >3 cm Mallampati Score: II Focused Labs Anesthesia Preop lab: CBC WBC 9.1 K/mm3 (4.4-11.0) 02/22/23 16:58 RBC 4.56 M/mm3 (4.2-5.4) 02/22/23 16:58 Hgb 14.5 g/dL (12.0-15.0) 02/22/23 16:58 Hct 43.9 % (37-47) 02/22/23 16:58 Plt Count 361 K/mm3 (150-450) 02/22/23 16:58 CHEMISTRY Potassium 3.8 mmol/L (3.5-5.1) 02/22/23 16:58 Sodium 142 mmol/L (136-145) 02/22/23 16:58 Phosphorus 3.3 mg/dL (2.5-4.9) 11/29/20 07:20 BUN 17 mg/dL (7-18) 02/22/23 16:58 Creatinine 0.94 mg/dL (0.55-1.02) 02/22/23 16:58 Glucose 94 mg/dL (74-106) 02/22/23 16:58 TSH 3.09 uIU/mL (0.358-3.74) 11/28/22 14:12 COAG Review of Systems (Anesthesia) ROS Narrative System reviewed and no additional complaints, except as documented. [facility], [facility] Medical History Fatty (change of) liver, not elsewhere classified Body mass index [BMI] 40.0-44.9, adult Insomnia, unspecified Congestion of respiratory tract Wheezing Overactive bladder Hypokalemia Nicotine dependence, cigarettes, uncomplicated Hyperglycemia, unspecified Dizziness Nausea with vomiting, unspecified Tremor, unspecified Benign paroxysmal positional vertigo Unspecified abdominal pain Diarrhea Dysuria Wears glasses Anxiety Alcohol use History of steroid therapy Kidney stone High cholesterol Restless legs History of hiatal hernia Smoker CPAP (continuous positive airway pressure) dependence Sleep apnea COPD (chronic obstructive pulmonary disease) Shortness of breath on exertion Chronic cough History of pain when walking History of edema History of stress test Incontinence Depression Limb weakness Tobacco abuse Hyperlipidemia GERD (gastroesophageal reflux disease) Allergic rhinitis COPD (chronic obstructive pulmonary disease) Cervicalgia Cervical radiculopathy Rotator cuff syndrome Segmental and somatic dysfunction of thoracic region Acute maxillary sinusitis Bursitis of right shoulder Bicipital tendinitis of right shoulder Family history of alcoholism TAMRA (obstructive sleep apnea) Rheumatoid arthritis Spontaneous rupture of extensor tendons, right forearm Segmental and somatic dysfunction of lumbar region Home Medications ?Medication ?Instructions ?Recorded ?Last Taken ?Type omeprazole 40 mg capsule,delayed 40 mg PO DAILY 05/18/16 12/28/20 04:30 History release abatacept 50 mg/0.4 mL 50 mg subcut QWEEK 12/10/20 Unknown History subcutaneous syringe (Orencia) mirabegron 25 mg tablet,extended 25 mg PO DAILY 12/21/20 Unknown History release 24 hr (Myrbetriq) albuterol sulfate 2.5 mg/3 mL 2.5 mg (3 mL) inhalation Q6H PRN 04/26/21 Unknown Rx (0.083 %) solution for nebulization Wheezing #180 mL albuterol sulfate 90 mcg/actuation 1 - 2 puff inhalation Q6H PRN PRN 05/11/22 Unknown Rx aerosol inhaler Sob &/Or Wheezing #18 grams fluticasone fur. 100 mcg-umeclid 1 inh inhalation DAILY #3 ea 05/07/23 Unknown Rx 62.5 mcg-vilant 25 mcg inhalat.powder (Trelegy Ellipta) cholecalciferol (vitamin D3) 25 25 mcg PO DAILY 05/09/23 Unknown History mcg (1,000 unit) capsule fluoxetine 10 mg capsule 10 mg PO DAILY 05/09/23 Unknown History gabapentin 100 mg capsule 100 mg PO TID 05/09/23 Unknown History (Neurontin) hydroxychloroquine 200 mg tablet 200 mg PO BID 05/09/23 Unknown History (Plaquenil) magnesium 250 mg tablet 250 mg PO DAILY 05/09/23 Unknown History trazodone 50 mg tablet 50 mg PO QHS 05/09/23 Unknown History leflunomide 20 mg tablet 20 mg PO DAILY 06/07/23 Unknown History potassium citrate 10 mEq (1,080 10 meq PO DAILY 06/07/23 Unknown History mg) tablet,extended release Allergy/AdvReac Type Severity Reaction Status Date / Time adalimumab (From Humira) Allergy Rash Verified 08/06/23 10:21 Penicillins Allergy Rash Verified 08/06/23 10:21 adhesive AdvReac Rash Verified 08/06/23 10:21 tramadol AdvReac FEELING OF Verified 08/06/23 10:21 CONFUSION Family History Mother COPD (chronic obstructive pulmonary disease) Heart disease Osteoarthritis TAMRA (obstructive sleep apnea) Hypertension Father Cancer throat Abuse, drug or alcohol Brother Abuse, drug or alcohol Allergies Grandmother Allergies Hypertension Heart disease Surgical History Hx of surgical procedure History of esophagogastroduodenoscopy (EGD) Hx of colonoscopy h/o trigger finger release History of surgery on arm History of laparoscopic cholecystectomy History of appendectomy Social History Smoking Status: Current every day smoker tobacco type: cigarettes Tobacco: How many years used: 40 second hand exposure: Yes alcohol intake: former substance use type: does not use caffeine: Yes what type of physical activity do you participate in: none Addt'l Information Additional Findings: Pulmonary function test shows an FEV1 of 65%
--- NOTE | 2023-08-06 11:40 | RAD_ITS ---
PROCEDURE: Caudal epidural steroid injection. DATE OF EXAMINATION: August 06, 2023. INDICATION: Female, 63 years old. Chronic low back pain. FLUOROSCOPY TIME (if supplied): (5.3 seconds) minutes/seconds. 3.07 mGy. One image was submitted. RAD/Fluor Guidance for Spine Inj IMPRESSION: Intraoperative imaging provided for caudal epidural steroid injection. Electronically Signed: Beny Schwab MD at 8:08 EDT ,
[2023-08-06] MEDS: 0.9% Normal Saline (Pres. free 10 ML Vial (11:47)
[2023-08-06] MEDS: MethylPREDNISolone Acetate 80 MG/ML Vial (11:47)
[2023-08-06] MEDS: Lidocaine 1% (5 ml sdv) 5 ML Vial (11:47)
--- NOTE | 2023-08-06 11:56 | OP.PCM_ITS ---
Report of Operation Date of Procedure: 08/06/23 Pre-Operative Diagnosis: Lumbosacral radiculopathy, lumbosacral degenerative di sc disease, lumbosacral spinal stenosis Post-Operative Diagnosis: Lumbosacral radiculopathy, lumbosacral degenerative disc disease, lumbosacral spinal stenosis Surgery/Procedure Performed:: Diagnostic/therapeutic caudal epidural steroid injection under fluoroscopic guidance Type of Anesthesia: MAC Estimated Blood Loss (mL): Minimal Description of Procedure: DESCRIPTION OF PROCEDURE: History and physical of today was reviewed. Risks and benefits of the procedure were explained. The patient understood and agreed to proceed. Informed consent was obtained. IV inserted per routine protocol. The patient was taken to the operating room and placed in the prone position with a pillow positioned underneath the abdomen. The lower back and tailbone area was prepped and draped in a sterile fashion using iodine x3. Under fluoroscopy guidance on a lateral view, the caudal space was identified. The skin and subcutaneous tissue was anesthetized with approximately 3 mL of 1% lidocaine using a 25-gauge regular needle. Under direct visualization with fluoroscopy, using a 22-gauge 3-1/2-inch spinal needle, the needle was advanced via the skin through the sacral hiatus. The tip of the needle was passed through the sacrococcygeal ligament and advanced to approximately S4 area. After negative aspiration of blood or CSF, a total of 3 mL of contrast was injected to confirm correct placement of the needle as well as cephalad spread. The spread was followed to approximately L5 area. After confirmation on AP as well as lateral view and repeated negative aspiration, a total of 15 mL of preservative-free 0.125% Marcaine with 80 mg of Depo-Medrol was injected easily. The needle was then removed intact. The patient experienced no sign or symptoms of intrathecal or intravascular injection. The patient experienced no paresthesia. The procedure was completed without any apparent difficulty or any complications. The patient appeared to tolerate it well. ASSESSMENT AND PLAN: This is a 63-year-old female with lumbosacral radiculopathy, lumbosacral degenerative disc disease, lumbosacral spinal stenosis status post diagnostic/therapeutic caudal epidural steroid injection, patient will continue her current medications, patient will follow in approximately 2 weeks for reevaluation. Complications None
--- NOTE | 2023-08-06 11:58 | PCM.POST.ANE ---
Anesthesia: Postop Eval I Current Vital Signs Temperature: 97.2 F Pulse Rate: 74 Blood Pressure: 114/82 Respiratory Rate: 14 Pulse Ox: 97 Oxygen Delivery Method: Room Air Assessment Airway patent: Yes Spontaneous unlabored respirations: Yes Mental status: Awake and Calm nausea: No Vomiting: No Anesthesia Complication: No Fluid Hydration Crystalloid volume administer (ml): 200 Total IV fluid infused: 200 Progress Note Anesthesia document: Postop Eval 1 completed: Yes
--- NOTE | 2023-08-06 12:41 | POSTOPAN2_ITS ---
Anesthesia Postop Eval I Sum Postop Eval Completion status Anesthesia document: Postop Eval 1 completed: Yes Anesthesia Postop Eval I Summary Anesthesia Postop Eval I Summary: Anesthesia Postop Eval I: Assessment Summary Airway patent Yes 08/06/23 11:59 VISITOR SERVICES [email or web address] Spontaneous unlabored Yes 08/06/23 11:59 VISITOR SERVICES TECHNICIAN.EDGAR respirations Mental status Awake,Calm 08/06/23 11:59 VISITOR SERVICES [email or web address].[email or web address] nausea No 08/06/23 11:59 VISITOR SERVICES [email or web address].[email or web address] Vomiting No 08/06/23 11:59 VISITOR SERVICES [email or web address].[email or web address] Anesthesia Postop Eval I: Fluid Summary Crystalloid volume administer 200 08/06/23 11:59 VISITOR SERVICES [email or web address].[email or web address] (ml) Colloids volume administered ( ml) Blood Product volume administered (ml) Total IV fluid infused 200 08/06/23 11:59 VISITOR SERVICES [email or web address].[email or web address] Anesthesia Postop Eval I: Summary Notes Anesthesia Complication No 08/06/23 11:59 VISITOR SERVICES [email or web address].[email or web address] Anesthesia Complication Comment: Post-operative progress note Anesthesia: Postop Eval II Evaluation Mental status: Awake Pain Level: 1 nausea: No Vomiting: No Complications Anesthesia Complication: No
--- NOTE | 2023-08-06 12:41 | PCM.POSTANE2 ---
Anesthesia Postop Eval I Sum Postop Eval Completion status Anesthesia document: Postop Eval 1 completed: Yes Anesthesia Postop Eval I Summary Anesthesia Postop Eval I Summary: Anesthesia Postop Eval I: Assessment Summary Airway patent Yes 08/06/23 11:59 BALANCE TRUING INSPECTOR.[email or web address] Spontaneous unlabored Yes 08/06/23 11:59 BALANCE TRUING INSPECTOR.EDGAR respirations Mental status Awake,Calm 08/06/23 11:59 BALANCE TRUING INSPECTOR.DEELOU nausea No 08/06/23 11:59 BALANCE TRUING INSPECTOR.DEELOU Vomiting No 08/06/23 11:59 BALANCE TRUING INSPECTOR.JBLOU Anesthesia Postop Eval I: Fluid Summary Crystalloid volume administer 200 08/06/23 11:59 BALANCE TRUING INSPECTOR.JBLOU (ml) Colloids volume administered ( ml) Blood Product volume administered (ml) Total IV fluid infused 200 08/06/23 11:59 BALANCE TRUING INSPECTOR.DEELOU Anesthesia Postop Eval I: Summary Notes Anesthesia Complication No 08/06/23 11:59 BALANCE TRUING INSPECTOR.EDGAR Anesthesia Complication Comment: Post-operative progress note Anesthesia: Postop Eval II Evaluation Mental status: Awake Pain Level: 1 nausea: No Vomiting: No Complications Anesthesia Complication: No
== END 2023-08-06 12:34 | disposition home or self-care (01) ==
LOC: SDC 09:37 → AC 10:12
PROVIDERS: PCP Family Medicine; Referring Provider Anesthesiology Pain Medicine; Visit Provider Anesthesiology Pain Medicine
PROC: 3E0S3BZ Introduction of Anesthetic Agent into Epidural Space, Percutaneous Approach (ICD-10-PCS; CPT 62282; principal; 2023-08-06 10:35)
DX: M51.17 Intervertebral disc disorders with radiculopathy, lumbosacral region (principal); M48.07 Spinal stenosis, lumbosacral region; Z79.51 Long term (current) use of inhaled steroids; Z79.899 Other long term (current) drug therapy
CPT/HCPCS: 62323; 01992; 64483; 77003; J7120; J3490

== ENCOUNTER → 2023-11-22 | Outpatient (CLI) | payer OTHER, SELFPAY ==
--- NOTE | 2023-11-22 14:29 | RAD_ITS ---
INDICATION: Pain EXAMINATION/TECHNIQUE: X-RAY - RIGHT XR Hand Min 3 Views 3 VIEWS COMPARISON: Prior study dated: 03/30/2020 FINDINGS: SOFT TISSUES: No soft tissue swelling or gas. No radiopaque foreign body. BONES/JOINTS: No acute fracture or subluxation.. Normal alignment. Preservation of the joint space throughout the hand. Mild degenerative change of the first carpometacarpal joint again noted... No sclerotic or destructive changes observed. RAD/Hand Min 3 Views IMPRESSION: No fracture or malalignment. No significant arthritic changes throughout the hand. Electronically Signed: Sammy Reeves MD at 7:09 EDT ,
--- NOTE | 2023-11-22 14:30 | RAD_ITS ---
EXAM: XR RIGHT WRIST COMPLETE, 3 OR MORE VIEWS CLINICAL INDICATION: Pain. TECHNIQUE: Frontal, lateral and oblique views of the right wrist. COMPARISON: No relevant prior studies available. FINDINGS: BONES/JOINTS: Unremarkable. No acute fracture. No subluxation. Normal alignment. Preservation of the joint space. No sclerotic or destructive changes observed. SOFT TISSUES: Unremarkable. No soft tissue swelling or gas. No radiopaque foreign body. RAD/Wrist min 3 Views IMPRESSION: Negative right wrist x-rays. Electronically Signed: Jose Teixeira MD at 16:02 EDT ,
== END | disposition home or self-care (01) ==
PROVIDERS: PCP Family Medicine; Referring Provider Orthopaedic Surgery; Visit Provider Orthopaedic Surgery
DX: M25.531 Pain in right wrist (principal); M79.641 Pain in right hand
CPT/HCPCS: 73110; 73130

== ENCOUNTER 2024-01-07 05:48 | Day surgery (SDC) | payer OTHER, SELFPAY ==
[2024-01-07] VITALS (8 sets, daily range): BP systolic 98–152; BP diastolic 65–95; PULSE 74–96; RESP 16–18; TEMP 36.2–37.4; O2SAT 94–96; BMI 37.0
--- NOTE | 2024-01-07 06:30 | RAD_ITS ---
PROCEDURE: Bilateral L4-L5 and L5-S1 medial branch nerve block. DATE OF EXAMINATION: January 07, 2024. INDICATION: Female, 63 years old. Chronic low back pain. FLUOROSCOPY TIME (if supplied): (24 seconds) minutes/seconds. 18.73 mGy. 6 images were submitted. RAD/L/S Spine Min 4 Views IMPRESSION: Fluoroscopic service was provided for bilateral L4-L5 and L5-S1 medial branch nerve block. Electronically Signed: Beny Schwab MD at 12:39 EST ,
--- NOTE | 2024-01-07 07:03 | PCM.PRE.AN2 ---
ASA Classification* ASA Classification ASA Classification: 3 Assessment & Plan Anesthesia* Anesthesia Assessment Anesthesia Assessment: Discussed sedation and/or anesthesia options, risks, benefits, and alternatives with patient/parents/legal guardian/POA. Questions invited. The patient/parents/legal guardian/POA seems to understand and agrees to proceed with anesthesia plan. Reviewed the physical assessment, medical history, allergy history and patient home medications list prior to surgery/procedure/anesthetic and documented any changes. Performed airway and anesthesia risk assessments. Anesthesia Type Anesthesia Type: MAC Anesthesia Focused Assessment* Temperature: 97.1 F Pulse Rate: 80 Blood Pressure: 120/65 Respiratory Rate: 16 Pulse Ox: 94 Airway Assessment Mouth opens: >3 cm Mallampati Score: II Focused Labs Anesthesia Preop lab: CBC WBC 9.1 K/mm3 (4.4-11.0) 02/22/23 16:58 RBC 4.56 M/mm3 (4.2-5.4) 02/22/23 16:58 Hgb 14.5 g/dL (12.0-15.0) 02/22/23 16:58 Hct 43.9 % (37-47) 02/22/23 16:58 Plt Count 361 K/mm3 (150-450) 02/22/23 16:58 CHEMISTRY Potassium 3.8 mmol/L (3.5-5.1) 02/22/23 16:58 Sodium 142 mmol/L (136-145) 02/22/23 16:58 Phosphorus 3.3 mg/dL (2.5-4.9) 11/29/20 07:20 BUN 17 mg/dL (7-18) 02/22/23 16:58 Creatinine 0.94 mg/dL (0.55-1.02) 02/22/23 16:58 Glucose 94 mg/dL (74-106) 02/22/23 16:58 TSH 3.09 uIU/mL (0.358-3.74) 11/28/22 14:12 COAG Pre-Assessment Diagnosis/Proposed Procedure Planned Operative Procedure(s): l4,5,s1 medial nerve block Anesthesia History 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 When Was Last Pacemaker Check QUESTION #4 FULL TEXT: You/Your Family Experience fever (hyperthermia) with Anesthesia Last Oral Intake Last Oral intake: Last Oral Intake NPO since 23:00 01/07/24 06:03 Meds taken in AM with sips of No 01/07/24 06:03 water? Meds patient instructed to take am of surgery PONV PONV - recreational vehicle repairer: PONV - recreational vehicle repairer Female HX of Motion Sickness HX of N/V After Surgery Non-Smoker Duration of Surgery greater than 60 minutes Number of Risk Factors PONV Score Height & Weight Height & Weight: Anesthesia: Height & Weight Height 5 ft 5 in 01/07/24 06:03 Weight: 101 kg 01/07/24 06:03 Body Mass Index (BMI) 37.0 01/07/24 06:03 Respiratory Assessment Respiratory Assessment - recreational vehicle repairer: Respiratory Tract Infection Hx - recreational vehicle repairer Hx Respiratory Tract Infection No 11/21/23 10:09 STOP Sleep Apnea STOP Sleep Apnea - recreational vehicle repairer: STOP Sleep Apnea - recreational vehicle repairer Hx Hypertension No 11/21/23 10:09 Hx Sleep Apnea Yes 11/21/23 10:09 CPAP Yes 11/21/23 10:09 BIPAP No 11/21/23 10:09 Do you snore loudly (louder than talking or can be heard Do you often feel tired/ fatigued/ sleepy during daytime? Has anyone observed you stop breathing during sleep? STOP Results QUESTION #5 FULL TEXT : Do you snore loudly (louder than talking or can be heard through closed doors)? 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 Specify any problems Hx of Preganancy in last 3 Months Nurse Filling Out Transfusion & Questions: Date: Time: Patient unable to answer at this time (ie. confused, unrespo /Reproduction History /Reproductive History - recreational vehicle repairer: /Reproductive Hx- recreational vehicle repairer Hx Now Gestational Age (in weeks): EDC: Hx Hx Para Hx Section SAB PFSH Medical History Fatty (change of) liver, not elsewhere classified Body mass index [BMI] 40.0-44.9, adult Insomnia, unspecified Congestion of respiratory tract Wheezing Overactive bladder Hypokalemia Nicotine dependence, cigarettes, uncomplicated Hyperglycemia, unspecified Dizziness Nausea with vomiting, unspecified Tremor, unspecified Benign paroxysmal positional vertigo Unspecified abdominal pain Diarrhea Dysuria Wears glasses Anxiety Alcohol use History of steroid therapy Kidney stone High cholesterol Restless legs History of hiatal hernia Smoker CPAP (continuous positive airway pressure) dependence Sleep apnea COPD (chronic obstructive pulmonary disease) Shortness of breath on exertion Chronic cough History of pain when walking History of edema History of stress test Incontinence Depression Limb weakness Tobacco abuse Hyperlipidemia GERD (gastroesophageal reflux disease) Allergic rhinitis COPD (chronic obstructive pulmonary disease) Cervicalgia Cervical radiculopathy Rotator cuff syndrome Segmental and somatic dysfunction of thoracic region Acute maxillary sinusitis Bursitis of right shoulder Bicipital tendinitis of right shoulder Family history of alcoholism TAMRA (obstructive sleep apnea) Rheumatoid arthritis Spontaneous rupture of extensor tendons, right forearm Segmental and somatic dysfunction of lumbar region Home Medications ?Medication ?Instructions ?Recorded ?Last Taken ?Type omeprazole 40 mg capsule,delayed 40 mg PO DAILY 05/18/16 12/28/20 04:30 History release abatacept 50 mg/0.4 mL 50 mg subcut QWEEK 12/10/20 Unknown History subcutaneous syringe (Orencia) mirabegron 25 mg tablet,extended 25 mg PO DAILY 12/21/20 Unknown History release 24 hr (Myrbetriq) albuterol sulfate 2.5 mg/3 mL 2.5 mg (3 mL) inhalation Q6H PRN 04/26/21 Unknown Rx (0.083 %) solution for nebulization Wheezing #180 mL fluticasone fur. 100 mcg-umeclid 1 inh inhalation DAILY #3 ea 05/07/23 Unknown Rx 62.5 mcg-vilant 25 mcg inhalat.powder (Trelegy Ellipta) cholecalciferol (vitamin D3) 25 25 mcg PO DAILY 05/09/23 Unknown History mcg (1,000 unit) capsule fluoxetine 10 mg capsule 10 mg PO DAILY 05/09/23 Unknown History hydroxychloroquine 200 mg tablet 200 mg PO BID 05/09/23 Unknown History (Plaquenil) magnesium 250 mg tablet 250 mg PO DAILY 05/09/23 Unknown History trazodone 50 mg tablet 50 mg PO QHS 05/09/23 Unknown History leflunomide 20 mg tablet 20 mg PO DAILY 06/07/23 Unknown History potassium citrate 10 mEq (1,080 10 meq PO DAILY 06/07/23 Unknown History mg) tablet,extended release albuterol sulfate 90 mcg/actuation 1 - 2 puff inhalation Q6H PRN PRN 08/30/23 Unknown Rx aerosol inhaler Sob &/Or Wheezing #18 grams gabapentin 100 mg capsule 100 mg PO TID PRN pain 12/29/23 Unknown History (Neurontin) Allergy/AdvReac Type Severity Reaction Status Date / Time adalimumab (From Humira) Allergy Rash Verified 01/07/24 06:00 Penicillins Allergy Rash Verified 01/07/24 06:00 adhesive AdvReac Rash Verified 01/07/24 06:00 tramadol AdvReac FEELING OF Verified 01/07/24 06:00 CONFUSION Family History Mother COPD (chronic obstructive pulmonary disease) Heart disease Osteoarthritis TAMRA (obstructive sleep apnea) Hypertension Father Cancer throat Abuse, drug or alcohol Brother Abuse, drug or alcohol Allergies Grandmother Allergies Hypertension Heart disease Surgical History Hx of surgical procedure History of esophagogastroduodenoscopy (EGD) Hx of colonoscopy h/o trigger finger release History of surgery on arm History of laparoscopic cholecystectomy History of appendectomy Social History Smoking Status: Current every day smoker tobacco type: cigarettes Tobacco: How many years used: 40 second hand exposure: Yes alcohol intake: former substance use type: does not use caffeine: Yes what type of physical activity do you participate in: none Review of Systems (Anesthesia) ROS Narrative System reviewed and no additional complaints, except as documented.
[2024-01-07] MEDS: Bupivacaine 0.25% 30 ML Vial (07:42)
[2024-01-07] MEDS: MethylPREDNISolone Acetate 80 MG/ML Vial (07:42)
[2024-01-07] MEDS: Lidocaine 1% (5 ml sdv) 5 ML Vial (07:43)
--- NOTE | 2024-01-07 07:47 | PCM.POST.ANE ---
Anesthesia: Postop Eval I Current Vital Signs Temperature: 99.4 F Pulse Rate: 96 Blood Pressure: 152/80 Respiratory Rate: 18 Pulse Ox: 94 Assessment Airway patent: Yes Spontaneous unlabored respirations: Yes nausea: No Vomiting: No Anesthesia Complication: No Fluid Hydration Crystalloid volume administer (ml): 0 Total IV fluid infused: 0 Progress Note Anesthesia document: Postop Eval 1 completed: Yes
--- NOTE | 2024-01-07 08:04 | PCM.OPRPT ---
Operative Report (Standard) Operative Information Surgery/Procedure Performed: Bilateral lumbar medial branch block at, L4, L5, and S1. Surgeon: Rj Bravo Date of Procedure: 01/07/24 Procedure Start Time: : Procedure Stop Time: : Pre-Operative Diagnosis: Lumbosacral spondylosis, lumbosacral degenerative disc disease, lumbar facet arthropathy Post-Operative Diagnosis: Lumbosacral spondylosis, lumbosacral degenerative disc disease, lumbar facet arthropathy Select all DRAINS/GRAFTS/IMPLANTS that apply: None Type of Anesthesia: Local MAC Estimated Blood Loss: 1 cc Specimen collected: No Description of surgery: Pre-Operative Diagnosis: Lumbosacral spondylosis, lumbosacral degenerative disc disease, lumbar facet arthropathy Post-Operative Diagnosis: Lumbosacral spondylosis, lumbosacral degenerative disc disease, lumbar facet arthropathy PROCEDURE PERFORMED: Bilateral lumbar medial branch block at, L4, L5, and S1. ANESTHESIA: MAC. BLOOD LOSS: Minimal. COMPLICATIONS: None. DESCRIPTION OF PROCEDURE: History and physical of today was reviewed. Risks and benefits of the procedure were explained. The patient understood and agreed to proceed. Informed consent was obtained. IV inserted per routine protocol. The patient was taken to the operating room and placed in the prone position with a pillow positioned underneath the abdomen. The lower back area was prepped and draped in a sterile fashion using iodine x3. Under fluoroscopy guidance on AP view, the L4 through S1 vertebral bodies were visualized. The skin and subcutaneous tissue was anesthetized with approximately 5 mL of 1% lidocaine using a 25-gauge regular needle. Under direct visualization with fluoroscopy, at approximately 25-degree angle, starting on the left L4, ending on the right L4, passing through the L5 and S1 bilaterally, using a 22-gauge 3-1/2-inch spinal needle, the needle was advanced via the skin. The tip of the needle was maneuvered and directed towards the superior medial gutter of the transverse process at the vicinity of the medial branch. Once tip of the needle was in contact with the bone, the needle was pulled approximately 2 mm off the bone. After negative aspiration for blood or CSF and confirmation on AP, oblique as well as lateral view, a total of 12 mL of preservative-free 0.25% Marcaine with 80 mg of Depo-Medrol was injected in divided doses between those six levels. The needles were then removed intact. The patient experienced no sign or symptoms of intrathecal or intravascular injection. The patient experienced no paresthesia. The procedure was completed without any apparent difficulty or any complications. The patient appeared to tolerate it well. ASSESSMENT AND PLAN: This is a 63-year-old female with lumbosacral spondylosis, lumbosacral degenerative disc disease, lumbar facet arthropathy status post bilateral lumbar medial branch block at L4-S1, patient will continue his current medications, patient will follow-up in approximately 2 weeks for reevaluation. 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
--- NOTE | 2024-01-07 10:17 | POSTOPAN2_ITS ---
Anesthesia Postop Eval I Sum Postop Eval Completion status Anesthesia document: Postop Eval 1 completed: Yes Anesthesia Postop Eval I Summary Anesthesia Postop Eval I Summary: Anesthesia Postop Eval I: Assessment Summary Airway patent Yes 01/07/24 07:47 ACCOUNTING PROFESSIONAL.CSIR Spontaneous unlabored Yes 01/07/24 07:47 ACCOUNTING PROFESSIONAL.CSIR respirations Mental status nausea No 01/07/24 07:47 ACCOUNTING PROFESSIONAL.CSIR Vomiting No 01/07/24 07:47 ACCOUNTING PROFESSIONAL.CSIR Anesthesia Postop Eval I: Fluid Summary Crystalloid volume administer 0 01/07/24 07:47 ACCOUNTING PROFESSIONAL.CSIR (ml) Colloids volume administered ( ml) Blood Product volume administered (ml) Total IV fluid infused 0 01/07/24 07:47 ACCOUNTING PROFESSIONAL.CSIR Anesthesia Postop Eval I: Summary Notes Anesthesia Complication No 01/07/24 07:47 ACCOUNTING PROFESSIONAL.CSIR Anesthesia Complication Comment: Post-operative progress note Anesthesia: Postop Eval II Evaluation Mental status: Awake Pain Level: 2 nausea: No Vomiting: No
--- NOTE | 2024-01-07 10:17 | PCM.POSTANE2 ---
Anesthesia Postop Eval I Sum Postop Eval Completion status Anesthesia document: Postop Eval 1 completed: Yes Anesthesia Postop Eval I Summary Anesthesia Postop Eval I Summary: Anesthesia Postop Eval I: Assessment Summary Airway patent Yes 01/07/24 07:47 ELEMENTARY SCHOOL DIRECTOR.CSIR Spontaneous unlabored Yes 01/07/24 07:47 ELEMENTARY SCHOOL DIRECTOR.CSIR respirations Mental status nausea No 01/07/24 07:47 ELEMENTARY SCHOOL DIRECTOR.CSIR Vomiting No 01/07/24 07:47 ELEMENTARY SCHOOL DIRECTOR.CSIR Anesthesia Postop Eval I: Fluid Summary Crystalloid volume administer 0 01/07/24 07:47 ELEMENTARY SCHOOL DIRECTOR.CSIR (ml) Colloids volume administered ( ml) Blood Product volume administered (ml) Total IV fluid infused 0 01/07/24 07:47 ELEMENTARY SCHOOL DIRECTOR.CSIR Anesthesia Postop Eval I: Summary Notes Anesthesia Complication No 01/07/24 07:47 ELEMENTARY SCHOOL DIRECTOR.CSIR Anesthesia Complication Comment: Post-operative progress note Anesthesia: Postop Eval II Evaluation Mental status: Awake Pain Level: 2 nausea: No Vomiting: No
== END 2024-01-07 08:21 | disposition home or self-care (01) ==
LOC: SDC 05:48 → AC 05:49
PROVIDERS: PCP Family Medicine; Referring Provider Anesthesiology Pain Medicine; Visit Provider Anesthesiology Pain Medicine
PROC: 3E0S3BZ Introduction of Anesthetic Agent into Epidural Space, Percutaneous Approach (ICD-10-PCS; CPT 62322; principal; 2024-01-07 07:25)
DX: M47.816 Spondylosis without myelopathy or radiculopathy, lumbar region (principal); M51.379 Other intervertebral disc degeneration, lumbosacral region without mention of lumbar back pain or lower extremity pain; M47.817 Spondylosis without myelopathy or radiculopathy, lumbosacral region
CPT/HCPCS: 64493; 64494; 64483; 72110; J2405

== ENCOUNTER → 2024-01-25 | Outpatient (CLI) | payer OTHER, SELFPAY ==
--- NOTE | 2024-01-25 16:57 | RAD_ITS ---
EXAM: XR CHEST, 2 VIEWS CLINICAL INDICATION: cough TECHNIQUE: Frontal and lateral views of the chest. COMPARISON: 03/28/2022 FINDINGS: LUNGS AND PLEURAL SPACES: Unremarkable. No consolidation or edema. No pneumothorax. No effusion. HEART: Unremarkable. Cardiac silhouette not enlarged. MEDIASTINUM: Central airways and mediastinal contour are unremarkable. BONES/JOINTS: Unremarkable. No acute fracture. SOFT TISSUES: Unremarkable. RAD/Chest PA and Lateral IMPRESSION: No radiographic evidence of acute cardiopulmonary disease. Electronically Signed: Abimael Ochoa MD at 18:02 EST ,
== END | disposition home or self-care (01) ==
LOC: RAD 16:57
PROVIDERS: PCP Family Medicine; Referring Provider Family Medicine; Visit Provider Family Medicine
DX: R05.8 Other specified cough (principal)
CPT/HCPCS: 71046

== ENCOUNTER → 2024-03-26 | Outpatient (CLI) | payer OTHER, SELFPAY ==
--- NOTE | 2024-03-26 16:50 | RAD_ITS ---
PROCEDURE: Lumbar spine radiographs REASON FOR EXAM: Pain TECHNIQUE: 4 views of the lumbar spine COMPARISON: None FINDINGS: See impression RAD/L/S Spine Min 4 Views IMPRESSION: Mild/moderate dextroscoliosis. Degenerative grade 1 anterolisthesis of L5-S1. Grade 1 retrolisthesis of L2-L3 and L3-L4. [id number] multilevel disc space narrowing, greatest at L3-L4 and L5-S1. [id number] multilevel facet arthropathy, greatest from L3 through L5. Mild degenerative changes of the sacroiliac joint s. Reading Location: [facility]
--- NOTE | 2024-03-26 16:50 | RAD_ITS ---
PROCEDURE: CERV SPINE 4 OR 5 VIEWS REASON FOR EXAM: Pain. TECHNIQUE: 5 views of the cervical spine. COMPARISON: None. FINDINGS: Cervical vertebral bodies maintain a normal height. There is mild levoscoliosis of the cervical spine. Multilevel degenerative changes are present with disc space narrowing and endplate spurring greatest from C4-C7. No acute fracture or subluxation is present. There is mild retrolisthesis of C4-C5 and C5-C6. Prevertebral soft tissues are unremarkable. Atlantodental interval is intact. Odontoid process is intact. Lateral masses align. RAD/Cerv Spine 4 or 5 Views IMPRESSION: 1. No acute osseous abnormality. 2. Multilevel degenerative changes. If clinical concern for radiculopathy, MR I is a more sensitive exam. Reading Location: [facility]
== END | disposition home or self-care (01) ==
LOC: MTRAD 16:38
PROVIDERS: PCP Family Medicine; Referring Provider Student in an Organized Health Care Education/Training Program; Visit Provider Student in an Organized Health Care Education/Training Program
DX: M54.50 Low back pain, unspecified (principal); M54.2 Cervicalgia
CPT/HCPCS: 72050; 72110

== ENCOUNTER 2024-04-07 07:37 | Day surgery (SDC) | payer OTHER, SELFPAY ==
[2024-04-07] VITALS (9 sets, daily range): BP systolic 91–118; BP diastolic 67–92; PULSE 79–87; RESP 16–20; TEMP 36.6–37.6; O2SAT 94–97; BMI 38.5
--- NOTE | 2024-04-07 08:09 | PCM.PRE.AN2 ---
ASA Classification* ASA Classification ASA Classification: 3 Assessment & Plan Anesthesia* Anesthesia Assessment Anesthesia Assessment: Discussed sedation and/or anesthesia options, risks, benefits, and alternatives with patient/parents/legal guardian/POA. Questions invited. The patient/parents/legal guardian/POA seems to understand and agrees to proceed with anesthesia plan. Reviewed the physical assessment, medical history, allergy history and patient home medications list prior to surgery/procedure/anesthetic and documented any changes. Performed airway and anesthesia risk assessments. Anesthesia Type Anesthesia Type: MAC Anesthesia Focused Assessment* Temperature: 99.6 F Pulse Rate: 87 Blood Pressure: 106/73 Respiratory Rate: 20 Pulse Ox: 97 Airway Assessment Mouth opens: >3 cm Mallampati Score: II Focused Labs Anesthesia Preop lab: CBC WBC 9.1 K/mm3 (4.4-11.0) 02/22/23 16:58 02/22/23 RBC 4.56 M/mm3 (4.2-5.4) 02/22/23 16:58 02/22/23 Hgb 14.5 g/dL (12.0-15.0) 02/22/23 16:58 02/22/23 Hct 43.9 % (37-47) 02/22/23 16:58 02/22/23 Plt Count 361 K/mm3 (150-450) 02/22/23 16:58 02/22/23 CHEMISTRY Potassium 3.8 mmol/L (3.5-5.1) 02/22/23 16:58 02/22/23 Sodium 142 mmol/L (136-145) 02/22/23 16:58 02/22/23 Phosphorus 3.3 mg/dL (2.5-4.9) 11/29/20 07:20 11/29/20 BUN 17 mg/dL (7-18) 02/22/23 16:58 02/22/23 Creatinine 0.94 mg/dL (0.55-1.02) 02/22/23 16:58 02/22/23 Glucose 94 mg/dL (74-106) 02/22/23 16:58 02/22/23 TSH 3.09 uIU/mL (0.358-3.74) 11/28/22 14:12 11/28/22 COAG Pre-Assessment Diagnosis/Proposed Procedure Planned Operative Procedure(s): Bilateral lumbar medial branch block l1-l3 Anesthesia History Anesthesia History - natural gas basis trader: Anesthesia History - natural gas basis trader Hx Hospitalization No 01/12/24 08:22 Any Problems With Anesthesia No 01/12/24 08:22 Cholinesterase deficiency No 01/12/24 08:22 You/Your Family Experience No 01/12/24 08:22 fever (hyperthermia) with Relationship Recent Exposure to Contagious No 04/07/24 07:57 Disease Does patient have nerve No 01/12/24 08:22 stimulator Patient instructed to have device shut off --Does patient have Pacemaker No 04/07/24 07:57 or ICD? When Was Last Pacemaker Check QUESTION #4 FULL TEXT: You/Your Family Experience fever (hyperthermia) with Anesthesia Last Oral Intake Last Oral intake: Last Oral Intake NPO since 19:00 04/07/24 07:57 Meds taken in AM with sips of Yes 04/07/24 07:57 water? Meds patient instructed to take am of surgery PONV PONV - natural gas basis trader: PONV - natural gas basis trader Female HX of Motion Sickness HX of N/V After Surgery Non-Smoker Duration of Surgery greater than 60 minutes Number of Risk Factors PONV Score Height & Weight Height & Weight: Anesthesia: Height & Weight Height 5 ft 5 in 04/07/24 07:57 Weight: 104.9 kg 04/07/24 07:57 Body Mass Index (BMI) 38.5 04/07/24 07:57 Respiratory Assessment Respiratory Assessment - natural gas basis trader: Respiratory Tract Infection Hx - natural gas basis trader Hx Respiratory Tract Infection No 01/12/24 08:22 STOP Sleep Apnea STOP Sleep Apnea - natural gas basis trader: STOP Sleep Apnea - natural gas basis trader Hx Hypertension No 01/12/24 08:22 Hx Sleep Apnea Yes 01/12/24 08:22 CPAP Yes 01/12/24 08:22 BIPAP No 01/12/24 08:22 Do you snore loudly (louder than talking or can be heard Do you often feel tired/ fatigued/ sleepy during daytime? Has anyone observed you stop breathing during sleep? STOP Results QUESTION #5 FULL TEXT : Do you snore loudly (louder than talking or can be heard through closed doors)? Tobacco Use History Tobacco Use History - natural gas basis trader: Tobacco Use History - natural gas basis trader Tobacco Use Smoking Status Current every day smoker 01/12/24 08:22 Hx Tobacco Use Yes 01/12/24 08:22 Years Smoking Packs Smoked per Day Smoking Cessation Date was within the last 15 years Hx Smoking Cessation Date Hx Smoking Cessation Counseling Hematologic Medial History Hematologic Hx - natural gas basis trader: Hematologic Medical Hx - contact lens fitter Hx of Blood Transfusion Hx of Transfusion in last 3 Months Date of Last Transfusion (if within last 3 months) Ever experience any problems with transfusion(s)? Specify any problems Hx of Preganancy in last 3 Months Nurse Filling Out Transfusion & Questions: Date: Time: Patient unable to answer at this time (ie. confused, unrespo /Reproduction History /Reproductive History - natural gas basis trader: /Reproductive Hx- natural gas basis trader Hx Now Gestational Age (in weeks): EDC: Hx Hx Para Hx Section SAB PFSH Medical History Fatty (change of) liver, not elsewhere classified Body mass index [BMI] 40.0-44.9, adult Insomnia, unspecified Congestion of respiratory tract Wheezing Overactive bladder Hypokalemia Nicotine dependence, cigarettes, uncomplicated Hyperglycemia, unspecified Dizziness Nausea with vomiting, unspecified Tremor, unspecified Benign paroxysmal positional vertigo Unspecified abdominal pain Diarrhea Dysuria Wears glasses Anxiety Alcohol use History of steroid therapy Kidney stone High cholesterol Restless legs History of hiatal hernia Smoker CPAP (continuous positive airway pressure) dependence Sleep apnea COPD (chronic obstructive pulmonary disease) Shortness of breath on exertion Chronic cough History of pain when walking History of edema History of stress test Incontinence Depression Limb weakness Tobacco abuse Hyperlipidemia GERD (gastroesophageal reflux disease) Allergic rhinitis COPD (chronic obstructive pulmonary disease) Cervicalgia Cervical radiculopathy Rotator cuff syndrome Segmental and somatic dysfunction of thoracic region Acute maxillary sinusitis Bursitis of right shoulder Bicipital tendinitis of right shoulder Family history of alcoholism TAMRA (obstructive sleep apnea) Rheumatoid arthritis Spontaneous rupture of extensor tendons, right forearm Segmental and somatic dysfunction of lumbar region Home Medications ?Medication ?Instructions ?Recorded ?Last Taken ?Type omeprazole 40 mg capsule,delayed 40 mg PO DAILY 05/18/16 04/07/24 History release abatacept 50 mg/0.4 mL 50 mg subcut QWEEK 12/10/20 03/25/24 History subcutaneous syringe (Orencia) mirabegron 25 mg tablet,extended 25 mg PO DAILY 12/21/20 04/06/24 History release 24 hr (Myrbetriq) albuterol sulfate 2.5 mg/3 mL 2.5 mg (3 mL) inhalation Q6H PRN 04/26/21 Unknown Rx (0.083 %) solution for nebulization Wheezing #180 mL fluticasone fur. 100 mcg-umeclid 1 inh inhalation DAILY #3 ea 05/07/23 04/07/24 Rx 62.5 mcg-vilant 25 mcg inhalat.powder (Trelegy Ellipta) cholecalciferol (vitamin D3) 25 25 mcg PO DAILY 05/09/23 04/06/24 History mcg (1,000 unit) capsule Held on 07/31/23. Instructions: HOLDS FOR SUMMER, RESTARTS IN FALL fluoxetine 10 mg capsule 10 mg PO DAILY 05/09/23 04/06/24 History hydroxychloroquine 200 mg tablet 200 mg PO BID 05/09/23 04/06/24 History (Plaquenil) magnesium 250 mg tablet 250 mg PO DAILY 05/09/23 04/06/24 History trazodone 50 mg tablet 50 mg PO QHS 05/09/23 04/06/24 History leflunomide 20 mg tablet 20 mg PO DAILY 06/07/23 04/06/24 History albuterol sulfate 90 mcg/actuation 1 - 2 puff inhalation Q6H PRN PRN 08/30/23 04/07/24 Rx aerosol inhaler Sob &/Or Wheezing #18 grams gabapentin 100 mg capsule 100 mg PO TID PRN pain 12/29/23 04/06/24 History (Neurontin) mecobalamin (vitamin B12) 5,000 mcg PO 04/01/24 04/06/24 History mcg disintegrating tablet Allergy/AdvReac Type Severity Reaction Status Date / Time adalimumab (From Humira) Allergy Rash Verified 04/07/24 07:55 Penicillins Allergy Rash Verified 04/07/24 07:55 adhesive AdvReac Rash Verified 04/07/24 07:55 tramadol AdvReac FEELING OF Verified 04/07/24 07:52 CONFUSION Family History Mother COPD (chronic obstructive pulmonary disease) Heart disease Osteoarthritis TAMRA (obstructive sleep apnea) Hypertension Father Cancer throat Abuse, drug or alcohol Brother Abuse, drug or alcohol Allergies Grandmother Allergies Hypertension Heart disease Surgical History Hx of surgical procedure History of esophagogastroduodenoscopy (EGD) Hx of colonoscopy h/o trigger finger release History of surgery on arm History of laparoscopic cholecystectomy History of appendectomy Social History Smoking Status: Current every day smoker tobacco type: cigarettes Tobacco: How many years used: 40 second hand exposure: Yes alcohol intake: former substance use type: does not use caffeine: Yes what type of physical activity do you participate in: none Review of Systems (Anesthesia) ROS Narrative System reviewed and no additional complaints, except as documented.
--- NOTE | 2024-04-07 08:30 | RAD_ITS ---
Fluoroscopic guidance was used intraoperatively. Please refer to the operative note for further details. Total images is 6. Total radiation dose 5.84 mGy. Total fluoroscopy time 8.2nd. Reading Location: [facility]
[2024-04-07] MEDS: MethylPREDNISolone Acetate 80 MG/ML Vial (08:38)
[2024-04-07] MEDS: Bupivacaine 0.25% 30 ML Vial (08:39)
[2024-04-07] MEDS: Lidocaine 1% (5 ml sdv) 5 ML Vial (08:39)
--- NOTE | 2024-04-07 08:47 | PCM.OPRPT ---
Operative Report (Standard) Operative Information Date of Procedure: 04/07/24 Pre-Operative Diagnosis: 1 Post-Operative Diagnosis: 1 Surgery/Procedure Performed: 1 information security systems instructor: No Type of Anesthesia: Local MAC RN Documented Start/Stop Times: Operation Date: 04/07/24 09:00 Case Time Into Pre-Op 04/07/24 07:41 Out of Pre-Op 04/07/24 08:21 Anesthesia Start 04/07/24 08:31 Into Room 04/07/24 08:31 Procedure Start 04/07/24 08:37 Procedure End 04/07/24 08:41 Anesthesia End 04/07/24 08:44 Out of Room 04/07/24 08:44 Procedure Start Time: 08:47 Procedure Stop Time: 08:47 Select all DRAINS/GRAFTS/IMPLANTS that apply: None Estimated Blood Loss: 0 Specimen collected: No Description of surgery: Pre-Operative Diagnosis: Lumbosacral spondylosis, lumbosacral degenerative disc disease, lumbar facet arthropathy Post-Operative Diagnosis: Lumbosacral spondylosis, lumbosacral degenerative disc disease, lumbar facet arthropathy PROCEDURE PERFORMED: Bilateral lumbar medial branch block at, L4, L5, and S1. ANESTHESIA: MAC. BLOOD LOSS: Minimal. COMPLICATIONS: None. DESCRIPTION OF PROCEDURE: History and physical of today was reviewed. Risks and benefits of the procedure were explained. The patient understood and agreed to proceed. Informed consent was obtained. IV inserted per routine protocol. The patient was taken to the operating room and placed in the prone position with a pillow positioned underneath the abdomen. The lower back area was prepped and draped in a sterile fashion using iodine x3. Under fluoroscopy guidance on AP view, the L4 through S1 vertebral bodies were visualized. The skin and subcutaneous tissue was anesthetized with approximately 5 mL of 1% lidocaine using a 25-gauge regular needle. Under direct visualization with fluoroscopy, at approximately 25-degree angle, starting on the left L4, ending on the right L4, passing through the L5 and S1 bilaterally, using a 22-gauge 3-1/2-inch spinal needle, the needle was advanced via the skin. The tip of the needle was maneuvered and directed towards the superior medial gutter of the transverse process at the vicinity of the medial branch. Once tip of the needle was in contact with the bone, the needle was pulled approximately 2 mm off the bone. After negative aspiration for blood or CSF and confirmation on AP, oblique as well as lateral view, a total of 12 mL of preservative-free 0.25% Marcaine with 80 mg of Depo-Medrol was injected in divided doses between those six levels. The needles were then removed intact. The patient experienced no sign or symptoms of intrathecal or intravascular injection. The patient experienced no paresthesia. The procedure was completed without any apparent difficulty or any complications. The patient appeared to tolerate it well. ASSESSMENT AND PLAN: This is a 64-year-old female with lumbosacral spondylosis, lumbosacral degenerative disc disease, lumbar facet arthropathy status post bilateral lumbar medial branch block at L4-S1, patient will continue his current medications, patient will follow-up in approximately 2 weeks for reevaluation. Surgical Findings: none Complications Complications: No Admit VTE Documentation VTE Present on Admission: No VTE Mechan Device Prophylaxis: None VTE Pharm Prophylaxis ordered?: No
--- NOTE | 2024-04-07 08:49 | PCM.POST.ANE ---
Anesthesia: Postop Eval I Current Vital Signs Temperature: 98.3 F Pulse Rate: 83 Blood Pressure: 99/70 Respiratory Rate: 16 Pulse Ox: 95 Assessment Airway patent: Yes Spontaneous unlabored respirations: Yes nausea: No Vomiting: No Anesthesia Complication: No Fluid Hydration Crystalloid volume administer (ml): 30 Total IV fluid infused: 30 Progress Note Anesthesia document: Postop Eval 1 completed: Yes
--- NOTE | 2024-04-07 09:00 | POSTOPAN2_ITS ---
Anesthesia Postop Eval I Sum Postop Eval Completion status Anesthesia document: Postop Eval 1 completed: Yes Anesthesia Postop Eval I Summary Anesthesia Postop Eval I Summary: Anesthesia Postop Eval I: Assessment Summary Airway patent Yes 04/07/24 08:49 [email or web address] Spontaneous unlabored Yes 04/07/24 08:49 EMAIL [email or web address] respirations Mental status nausea No 04/07/24 08:49 EMAIL [email or web address] Vomiting No 04/07/24 08:49 EMAIL [email or web address] Anesthesia Postop Eval I: Fluid Summary Crystalloid volume administer 30 04/07/24 08:49 EMAIL [email or web address] (ml) Colloids volume administered ( ml) Blood Product volume administered (ml) Total IV fluid infused 30 04/07/24 08:49 EMAIL [email or web address] Anesthesia Postop Eval I: Summary Notes Anesthesia Complication No 04/07/24 08:49 EMAIL [email or web address] Anesthesia Complication Comment: Post-operative progress note Anesthesia: Postop Eval II Evaluation Mental status: Awake Pain Level: 1 nausea: No Vomiting: No
--- NOTE | 2024-04-07 09:00 | PCM.POSTANE2 ---
Anesthesia Postop Eval I Sum Postop Eval Completion status Anesthesia document: Postop Eval 1 completed: Yes Anesthesia Postop Eval I Summary Anesthesia Postop Eval I Summary: Anesthesia Postop Eval I: Assessment Summary Airway patent Yes 04/07/24 08:49 GENERAL OFFICE [email or web address] Spontaneous unlabored Yes 04/07/24 08:49 GENERAL OFFICE ASSISTANT.TNES respirations Mental status nausea No 04/07/24 08:49 GENERAL OFFICE ASSISTANT.[email or web address] Vomiting No 04/07/24 08:49 GENERAL OFFICE ASSISTANT.TNES Anesthesia Postop Eval I: Fluid Summary Crystalloid volume administer 30 04/07/24 08:49 GENERAL OFFICE ASSISTANT.TNES (ml) Colloids volume administered ( ml) Blood Product volume administered (ml) Total IV fluid infused 30 04/07/24 08:49 GENERAL OFFICE ASSISTANT.TNES Anesthesia Postop Eval I: Summary Notes Anesthesia Complication No 04/07/24 08:49 GENERAL OFFICE ASSISTANT.[email or web address] Anesthesia Complication Comment: Post-operative progress note Anesthesia: Postop Eval II Evaluation Mental status: Awake Pain Level: 1 nausea: No Vomiting: No
== END 2024-04-07 09:42 | disposition home or self-care (01) ==
LOC: SDC 07:38 → AC 07:39
PROVIDERS: PCP Family Medicine; Referring Provider Anesthesiology Pain Medicine; Visit Provider Anesthesiology Pain Medicine
PROC: 3E0S3BZ Introduction of Anesthetic Agent into Epidural Space, Percutaneous Approach (ICD-10-PCS; CPT 62322; principal; 2024-04-07 08:55)
DX: M47.817 Spondylosis without myelopathy or radiculopathy, lumbosacral region (principal); M51.379 Other intervertebral disc degeneration, lumbosacral region without mention of lumbar back pain or lower extremity pain; M46.96 Unspecified inflammatory spondylopathy, lumbar region; F17.210 Nicotine dependence, cigarettes, uncomplicated
CPT/HCPCS: 64494; 64493; 01992; 64483; 72114

== ENCOUNTER → 2024-04-25 | Outpatient (CLI) | payer OTHER, SELFPAY ==
--- NOTE | 2024-04-25 14:13 | CT_ITS ---
PROCEDURE: LOW DOSE CT LUNG SCREENING REASON FOR EXAM: Current smoker. Patient has smoked 1 pack per day for 40 years. TECHNIQUE: Low Dose CT Lung Screening without contrast COMPARISON: Comparison is made with prior study dated April 25, 2023. FINDINGS: PULMONARY NODULES: (Only nodules >6mm are reported) Nodules described below are on series 1 unless otherwise specified. Pulmonary Nodules: There is a new 8.2 mm nodule in the posterior medial aspect of the left lung apex. This was not seen on prior study.. Stable 4 mm noncalcified nodule in the peripheral lateral aspect of the left lower lobe. Hardware:None Lymph Nodes:No mediastinal hilar or axillary lymphadenopathy. Heart and Vasculature:Normal heart size. No pericardial effusion.Thoracic aorta and pulmonary arteries have normal contours; noncontrast technique limits evaluation. Coronary Artery Calcifications: Present Lungs and Airways: Mild emphysematous changes are present. There is evidence of focal ground-glass appearance in the medial aspect of the right upper lobe. This is essentially unchanged as compared to prior study and most likely secondary to scarring. Pleura:No pleural effusion. No pneumothorax. Upper Abdomen:Visualized portions of the upper abdominal viscera are unremarkable. Bones:Degenerative changes of the thoracic spine. CT/Low Dose CT Lung Screening IMPRESSION: 1. BASED ON THE ACR LUNG RADS FOR THE MOST SUSPICIOUS NODULE (IF ANY) DESCRIBE D IN THIS REPORT, THE OVERALL LUNG RADS SCORE IS 4A.4A-SUSPICIOUS. RECOMMEND 3 MONTH LDCT; PET/CT MAY BE CONSIDERED IF THERE IS A >=8MM SOLID NODULE OR SOLID COMPONENT.. 2. SMOKING CESSATION COUNSELING IS RECOMMENDED IF THE PATIENT IS STILL SMOKING . 3. OTHER SIGNIFICANT FINDINGSNone. One or more dose reduction techniques were used (e.g., Automated exposure contr ol, adjustment of the mA and/or kV according to patient size, use of iterative reconstruction technique). The following information is provided for reference:Lung-RADS 2021 Assessment C ategories. Additional information involving Lung-RADS is available at www.acr.org. 0-INCOMPLETE 1-NEGATIVE:No nodules or definitely benign nodules. Complete, central, popcorn , or centric ring calcifications OR fat containing 2-BENIGN APPEARANCE (based on imaging features or indolent behavior). Juxtaple ural nodule: < 10mm AND solid; smooth margins; oval, entiform, or triangular shape Solid nodule: <6mm at baseline or new< 4mm Part solid Nodule: < 6mm total mean diameter at baseline Nonsolid nodule:(GGN) < 30mm OR >=30mm stable or slowly growing Airway nodule, subsegmental at baseline, new, or stable Category 3 nodule stabl e or decreased in size at 6-month follow-up CT or Category 3 or 4A nodules that resolve on follow-up OR category 4B findings prov en to be benign following diagnotic work up. 3 - Probably Benign (Based on imaging features or behavior) Solid Nodule: >= 6 to <8mm at baseline OR new 4 to <6mm Part-solid nodule: >= 6mm toal mean diam. with solid component <6mm at baseline OR new < 6mm total mean diam. Non-solid nodule: GGN >= 30mm at baseline or new Atypical pulmonary cyst: Growing cystic component (mean diam.) of thick-walled cyst Category 4A nodule stable or decreased in size at 3-month follow-up CT (excl.ai rway). 4A - Suspicious Solid nodule: >=8 to < 15mm at baseline OR growing < 8mm OR new 6 to < 8mm Part solid nodule: >= 6mm total mean diam. w/ solid component >=6mm to < 8mm at baseline OR new or growing < 4mm solid component Airway nodule, segmental or more proximal at baseline or new Atypical pulmonary cyst: Thick-walled OR multilocular at baseline OR becomes mu ltilocular 4B - Very Suspicious Airway nodule, segmental or more proximal, and stable or growing Solid nodule: >= 15mm at baseline OR new or growing >= 8mm Part solid nodule: Solid component >= 8mm OR new or growing >= 4mm solid compon ent Atypical pulmonary cyst: Thick-walled with growing wall thickness/nodularity OR Growing multilocular (mean diam.) OR Multilocular with increased loculation or new/increased opacity Slow-growing solid or part solid nodule w/ growth over multiple screening exams 4X - Very Suspicious Category 3 or 4 nodules with additional features that increase the suspicion fo r lung cancer. S - Clinically Significant or potentially significant findings (non-lung cancer ) Reading Location: [id number]
== END | disposition home or self-care (01) ==
LOC: CT 14:13
PROVIDERS: PCP Family Medicine; Referring Provider Internal Medicine Critical Care Medicine; Visit Provider Internal Medicine Critical Care Medicine
DX: F17.210 Nicotine dependence, cigarettes, uncomplicated (principal); J44.9 Chronic obstructive pulmonary disease, unspecified
CPT/HCPCS: 71271

== ENCOUNTER → 2024-04-28 | Outpatient (CLI) | payer OTHER, SELFPAY ==
[2024-04-28 12:08] LABS: Basophil# 0.02 X10^3/uL; Basophil% 0.3 % (0-1); Eosinophil# 0.03 X10^3/uL; Eosinophils% 0.4 % (0-5); Hematocrit 39.9 % (37-47); Hemoglobin 13.8 g/dL (12.0-15.0); Lymphocyte % 32.2 % (19-41); Mean Corp Hgb Conc 34.6 g/dL (32-36); Mean Corpuscular Hgb 32.2 pg (27.0-32.0); Mean Corpuscular Volume 93.2 fL (81-99); Mean Platelet Vol. 8.3 fl (6.2-12.0); Monocyte# 0.52 X10^3/uL; Monocyte% 7.6 % (0-10); NRBC Flagged by Analyzer 0 % (0-5); Neutrophil # 4.04 X10^3/uL (2.7-7.7); Neutrophil % 59.2 % (47-70); Platelet Count 241 K/mm3 (150-450); RBC Distribution Width CV 12.8 % (11.6-14.6); Red Blood Count 4.28 M/mm3 (4.2-5.4); White Blood Count 6.8 K/mm3 (4.4-11.0)
[2024-04-28 14:46] LABS: AST(SGOT) 19 U/L (<=31); Alanine Aminotransfer ALT/SGPT 16 U/L (<=34); Albumin, Serum 4.2 g/dL (3.4-4.8); Alkaline Phosphatase 63 U/L (35-104); Anion Gap 12 (5-15); BUN 20 mg/dL (4-19); BUN/Creat Ratio 22.4 RATIO (10-20); Calcium,Total 9.3 mg/dL (7.6-11.0); Carbon Dioxide 24.2 mmol/L (21.0-32.0); Chloride 99 mmol/L (98-108); Creatinine, Serum 0.91 mg/dL (0.70-1.20); EST Glomerular Filtration Rate 71 (>60); Glucose 99 mg/dL (70-99); Hepatitis B Surface Antibody Nonreactive; Hepatitis B Surface Antigen Nonreactive (Nonreactive); Hepatitis C Antibody Nonreactive (Nonreactive); Potassium 4.3 mmol/L (3.3-5.1); Protein, Total 6.2 g/dL (5.9-8.4); Sodium Level 135 mmol/L (133-145); Total Bilirubin 0.23 mg/dL (0.00-1.30)
[2024-04-29 05:07] LABS: Hepatitis A AB, Total Negative (Negative); Hepatitis B Core Ab Total Negative (Negative)
== END | disposition home or self-care (01) ==
LOC: LAB 11:37
PROVIDERS: PCP Family Medicine; Referring Provider Nurse Practitioner Acute Care; Visit Provider Nurse Practitioner Acute Care
DX: K21.9 Gastro-esophageal reflux disease without esophagitis (principal); K76.0 Fatty (change of) liver, not elsewhere classified
CPT/HCPCS: 36415; 80053; 85025; 86704; 86706; 86708; 86803; 87340

== ENCOUNTER → 2024-05-01 | Outpatient (CLI) | payer OTHER, SELFPAY ==
--- NOTE | 2024-05-01 07:23 | US_ITS ---
PROCEDURE: ABDOMEN LIMITED REASON FOR EXAM: RUQ PAIN, EPIG PAIN COMPARISON: None FINDINGS: Liver: Grossly normal size and echotexture. Gallbladder: Surgically absent. Common bile duct: Normal measuring 7.3 mm.. Pancreas: Visualized portions are sonographically unremarkable. Visualized portions of the right kidney are unremarkable. No right upper quadrant ascites. US/Abdomen Limited IMPRESSION: Status post cholecystectomy. No acute abnormality is seen. Reading Location: [id number]
== END | disposition home or self-care (01) ==
LOC: US 07:23
PROVIDERS: PCP Family Medicine; Referring Provider Nurse Practitioner Acute Care; Visit Provider Nurse Practitioner Acute Care
DX: K21.9 Gastro-esophageal reflux disease without esophagitis (principal); K76.0 Fatty (change of) liver, not elsewhere classified
CPT/HCPCS: 76705

== ENCOUNTER → 2024-05-12 | Outpatient (CLI) | payer OTHER, SELFPAY ==
--- NOTE | 2024-05-12 19:11 | MRI_ITS ---
EXAM: MRI lumbar spine without contrast. CLINICAL HISTORY: Back pain COMPARISON: Lumbar spine radiograph 03/26/2024 TECHNIQUE: Multiplanar multisequence MRI of the lumbar spine without contrast. FINDINGS: Slight exaggeration of the lumbar lordosis. Vertebral body heights and disc spaces are within normal limits. . No evidence of compression fracture. Alignment is normal. No listhesis. The bone marrow signal is unremarkable. There is no abnormal bone STIR signal. The included distal thoracic cord is normal in caliber and signal. The conus medullaris terminates at L1 level. There is no clumping of the nerve roots. L1/2: No canal stenosis or neural foraminal narrowing.. L2/3: No significant canal stenosis or neural foraminal narrowing.. L3/4: Small circumferential disc bulge and mild facet degenerative changes with flattening of the ventral thecal sac. No significant canal stenosis. Mild bilateral neural foraminal narrowing.. L4/5: Small disc bulge and mild facet degenerative changes with flattening of the ventral thecal sac. No significant canal stenosis. Neural foramina are patent.. L5/S1: Small disc protrusion and facet degenerative changes without canal stenosis. Mild neural foraminal narrowing. The visualized prevertebral and paraspinal soft tissues are unremarkable. MRI/Spine Lumbar (Routine) IMPRESSION: No acute findings of the lumbar spine. Multilevel degenerative changes, without high-grade canal stenosis or neural fo raminal narrowing. Reading Location: [facility]
== END | disposition home or self-care (01) ==
LOC: MRI 15:28
PROVIDERS: PCP Family Medicine; Referring Provider Student in an Organized Health Care Education/Training Program; Visit Provider Student in an Organized Health Care Education/Training Program
DX: R52 Pain, unspecified (principal)
CPT/HCPCS: 72148

== ENCOUNTER 2024-05-22 17:00 | Outpatient (RCR) | payer OTHER, SELFPAY ==
--- NOTE | 2024-04-10 18:18 | HP.PTEVAL ---
Patient's Visit Information Visit Information Visit Information: LAUREN MALDONADO is a 64 year old F referred to Physical Therapy by ILYA Antunez with a diagnosis of lumbar and cervical readiculopathy. Date of Evaluation: 04/10/24 Physical Therapist: Zachary Tovar, DPT, OCS, CSCS Visit Plan Frequency: 2x /Week Duration: 4-6 Weeks Plan: 2x/week for 3-6 weeks... Pt is already in pool 3-5x/week but I am not convinced she is doing appropriate ex, please ensure that she is doing UE/postural strength and stretching HS and into upper thoracic extension, please make sure that she is working hard enough to increase strength adn progressions. 3 weeks in the pool then consider gym/HEP for the second three weeks as needed. focus LB and thoracic ext adn strength of these muscles. Stretch neck scalenes adn UT. Subjective Subjective: Neck pain started a month ago out of nowhere. Hand numbness and up to elbow B lasting half the day. No neck pain really. Previously exercises helped and travel pillow under neck. Morning is present and if walks alot, otherwise is OK. LB also hurts and started on adn off for the last year. Dr. Sweeney injects her and it really helps. No longer allowed to take tyelnol or ibuprofen. Takes tramadol. Not sure why it flared up eearlier this year for no reason. It is back pain and leg pain posterior up top and knees. Saw Dr. Frankel on 04/01/24([facility]) but no meds or exercises given. On gabapentin 3x/day which does not help much. Dr. Sweeney injections helped 70%. pain is now 3/10 in legs and LB and was 8/10. Sleep was interrupted but much better since injection. 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 Bewtter last couple days. Home activities: hard to walk very far. No regular exercises. Basic ADLs are getting done. Hobbies: congregation activities have come to a halt(meal prep) Does pool exercises each morning, stretching carefully right now , usually 5 days per week but no only 3 days per week. Pain LB: Pain Intensity (Out of 10): 0 Pain Intensity Range: 1 and 8 arms numb: Pain Intensity (Out of 10): 0 Pain Intensity Range: 0 and 3 Objective Objective: Walks into PT I today without pain or numbness. Trasnfer chair with UE I. Steps recirpocal with one rail, I no pain. Bed trasnfer is I today. Posture is forward head and protracted scap, some structural kyphosis lower cervical and upper thoracic spine, very stiff in upper thoracic. Overall cervical AROM 50 ext, 70 B rotation adn 20 B SB. tightness in scalenes and UT, Pain with extension centrally. No causing numbness. LB AROM is min deficits in SB and flexion and max in extension with pain only in extension. HS max tight at -40 90/90 test. - SLR, - slump, - c/s compression test. Unsatble in pevic stabilizers with LE testing. weak in core at 3 abs and 3- extension. reflexes 1/3 bi adn tri and patella and achilles Sensation UE and LE WNL to gross light touch today B. strength hip flexion 3 B, abd 3-, ext 3- with instability in spine with testing. kneee flexion adn ext are 4- with L knee pain with ext. ankles are 4/5 B. UE strength is 4- in shoulder flexion and bi and tri and thumb ext and wrist without myotoma problems. Balance/Special Test Scores Oswestry Low Back Score: 10 Goals Goal 1:: I appropriate pool based aggressive strength and postural and cervical and core and LE strenght program with progressions. Goal Time Frame: 2-4 Weeks Goal 2:: Patient continue to be painfree at rest and 90% better in overall arm numbness Goal Time Frame: 4-6 Weeks Goal 3:: back oswestry score 6 or better Goal Time Frame: 4-6 Weeks Goal 4:: Progress to home/gym ex to help maintain ROM, posture and core strength to ease in recurrence Goal Time Frame: 4-6 Weeks Goal 5:: Pt feel exit bed without stiffneess or numbness in UE Goal Time Frame: 4-6 Weeks Rehabilitation Potential Physical Therapy Diagnosis: stiffneess and loss ROM and weakness leading to back and neck flares and limiting function. Rehabilitation Potential: Fair Anticipated Interventions Patient/Client Instruction: Educate patient on: Condition and Plan of Care For the Purpose of:: To decrease pain, To increase ROM, To improve nutrient delivery to tissue, To improve muscle performance and motor function, To increase tolerance to activity/condition/position and To improve ability of physical actions for home/community/work/leisure Therapeutic Exercise to Include: Strength training, Postural training, Flexibilty training, In an aquatic setting, Passive ROM and Active ROM For the Purpose of:: To decrease pain, To increase ROM, To improve nutrient delivery to tissue, To improve muscle performance and motor function, To increase tolerance to activity/condition/position, To improve ability of physical actions for home/community/work/leisure and To improve gait and locomotor functions Manual Therapy Techniques to Include: Mobilization, Passive ROM and Soft tissue mobilization For the Purpose of:: To decrease pain, To improve ability of physical actions for home/community/work/leisure and To improve gait and locomotor functions Text: Thank you for the opportunity to evaluate your patient. For Medicare and Medicare HMO plans, please review the plan of care and approve it. It will need to be FAXED BACK to us at [phone] for Medicare purposes. For Medicare only, by signing this I certify the plan of care. Please let me know if there are questions or concerns regarding this plan of care. Physician Signature: Date:
--- NOTE | 2024-05-22 17:09 | HP.PTDCSUM_ITS ---
Discharge Summary D/C summary: It has been my pleasure to treat LAUREN MALDONADO referred by ILYA Antunez, with the diagnosis of lumbar and cervical readiculopathy for a total of 13 visit(s). Discharge Date: 05/22/24 Please see the following information for a summary of their discharge status. Subjective Subjective: i am reallly well right now. I am not gimping around or limping. I have more energy. Feels stronger. Was in Afib and has monitor on now. Stretch ing at home consistently. Is taking tylenol and ibuprofen together and doing that. has not needed it lately. Pain LB: Pain Intensity (Out of 10): 0 arms numb: Pain Intensity (Out of 10): 0 BLE: Pain Intensity (Out of 10): 0 Overall Improvement % Improvement: 70 Objective Objective/Function: Good lumbar ROM without hesitation or pain todya. Bradford sitioning well adn walking without gait deviations. Goals Goal 1:: I appropriate pool based aggressive strength and postural and cervical and core and LE strenght program with progressions. Goal Progress: Goal Met Goal 2:: Patient continue to be painfree at rest and 90% better in overall arm numbness Goal Progress: 70% Goal 3:: back oswestry score 6 or better Goal Progress: Progressing Goal 4:: Progress to home/gym ex to help maintain ROM, posture and core strength to ease in recurrence Goal Progress: Pool Goal 5:: Pt feel exit bed without stiffneess or numbness in UE Goal Progress: Goal Met Plan Plan: d/c to I pool program. and home stretching. D/C Information d/c sentence: If there are questions or concerns regarding this patient's physical therapy, please feel free to call me at [phone]. Thank you for the referral of this patient. Sincerely, Zachary Tovar, DPT, OCS, CSCS Balance/Gait/Functional tests Balance/Special Test Scores Oswestry Low Back Score: 8 Improvement % Improvement: 70
== END 2024-05-22 19:00 | disposition home or self-care (01) ==
LOC: PT 17:00
PROVIDERS: PCP Family Medicine; Referring Provider Student in an Organized Health Care Education/Training Program; Visit Provider Student in an Organized Health Care Education/Training Program
DX: M54.16 Radiculopathy, lumbar region (principal); M54.12 Radiculopathy, cervical region
CPT/HCPCS: 97113; 97162; 97164; 97530

== ENCOUNTER 2024-05-27 10:33 | Outpatient (CLI) | payer OTHER, SELFPAY | END 2024-05-27 23:59 | disposition home or self-care (01) | LOC: MTLAB 10:34 | PROVIDERS: PCP Family Medicine; Referring Provider Nurse Practitioner Acute Care; Visit Provider Nurse Practitioner Acute Care | DX: K76.0 Fatty (change of) liver, not elsewhere classified (principal); I49.9 Cardiac arrhythmia, unspecified | CPT/HCPCS: 36415; 84443 ==

== ENCOUNTER → 2024-07-03 | Outpatient (CLI) | payer OTHER, SELFPAY ==
[2024-07-03 15:15] LABS: Absolute Lymphocyte Count 2.02 X10^3/uL (0.83-4.51); Absolute Neutrophil Count 3.8 X10^3/uL (2.0-7.7); Basophil# 0.02 X10^3/uL; Basophil% 0.3 % (0-1); Eosinophil# 0.06 X10^3/uL; Eosinophils% 0.9 % (0-5); Hematocrit 40.2 % (37-47); Hemoglobin 13.5 g/dL (12.0-15.0); Lymphocyte # 2.02 X10^3/ul (0.83-4.51); Lymphocyte % 31.3 % (19-41); Mean Corp Hgb Conc 33.6 g/dL (32-36); Mean Corpuscular Hgb 31.8 pg (27.0-32.0); Mean Corpuscular Volume 94.6 fL (81-99); Mean Platelet Vol. 9.5 fl (6.2-12.0); Monocyte# 0.56 X10^3/uL; Monocyte% 8.7 % (0-10); NRBC Flagged by Analyzer 0 % (0-5); Neutrophil # 3.77 X10^3/uL (2.7-7.7); Neutrophil % 58.5 % (47-70); Platelet Count 254 K/mm3 (150-450); RBC Distribution Width SD 45.2 fl (35.1-43.9); Red Blood Count 4.25 M/mm3 (4.2-5.4); White Blood Count 6.5 K/mm3 (4.4-11.0)
[2024-07-03 15:37] LABS: BUN 13 mg/dL (4-19); Creatinine, Serum 0.81 mg/dL (0.70-1.20); Glucose 96 mg/dL (70-99)
[2024-07-03 15:38] LABS: ALB/GLOB Ratio 1.8 RATIO (0.9-2.4); AST(SGOT) 25 U/L (<=31); Alanine Aminotransfer ALT/SGPT 20 U/L (<=34); Alkaline Phosphatase 69 U/L (35-104); Anion Gap 10 (5-15); BUN/Creat Ratio 15.8 RATIO (10-20); Calcium,Total 9.3 mg/dL (7.6-11.0); Carbon Dioxide 24.1 mmol/L (21.0-32.0); Chloride 105 mmol/L (98-108); EST Glomerular Filtration Rate 82 (>60); Globulin 2.2 g/dL (2.2-4.2); Potassium 3.7 mmol/L (3.3-5.1); Pro- Brain NATRIURETIC PEPTIDE 229 pg/mL (<=900); Protein, Total 6.2 g/dL (5.9-8.4); Sodium Level 139 mmol/L (133-145); Total Bilirubin 0.25 mg/dL (0.00-1.30); Troponin T High Sensitivity 11 ng/L (<=14)
== END | disposition home or self-care (01) ==
LOC: MFPLAB 12:27
PROVIDERS: PCP Family Medicine; Referring Provider Family Medicine; Visit Provider Family Medicine
DX: R06.02 Shortness of breath (principal); E87.6 Hypokalemia
CPT/HCPCS: 36415; 80053; 83880; 84484; 85025

== ENCOUNTER 2024-08-26 09:26 | Emergency (ER) | payer OTHER, SELFPAY ==
[2024-08-26] VITALS (7 sets, daily range): BP systolic 117–140; BP diastolic 77–85; PULSE 82–99; RESP 17–20; TEMP 36.1–36.6; O2SAT 95–98; BMI 39.9
--- NOTE | 2024-08-26 10:22 | EKG12_ITS ---
Test Reason : PALPITATIONS Blood Pressure : */* mmHG Vent. Rate : 87 BPM Atrial Rate : * BPM P-R Int : * ms QRS Dur : 80 ms QT Int : 358 ms P-R-T Axes : * 25 51 degrees QTcB Int : 430 ms Atrial fibrillation with premature ventricular or aberrantly conducted complexes Septal infarct , age undetermined Abnormal ECG Confirmed by SARAH MARTIN, GABRIELA ([id number]), staff editor ALEX MAGANA ([id number]) on 08/28/2024 6:41:10 AM Referred By: Confirmed By: GABRIELA SMITH MD
--- NOTE | 2024-08-26 10:22 | RAD_ITS ---
PROCEDURE: CHEST 1 VIEW (PORTABLE) 08/26/2024 REASON FOR EXAM: SHORTNESS OF BREATH TECHNIQUE: Frontal view of the chest. COMPARISON: Chest x-ray of 01/25/2024. RAD/Chest 1 View (Portable) IMPRESSION: Examination somewhat limited by obliquity of the chest. No evidence of pulmonary edema. Lungs appear clear. The cardiomediastinal silhouette is stable, given differences in obliquity, wit hout evidence of cardiomegaly. No pleural effusion or pneumothorax is noted. No acute osseous change is seen. Degenerative changes and scoliosis of the tho racic spine are again noted. Reading Location: [address]
--- NOTE | 2024-08-26 10:23 | EX.ED.DYSGE1 ---
HPI History of Present Illness Chief Complaint: Palpitations Narrative Narrative: 54-year-old female past medical history of atrial fibrillation, on Eliquis and metoprolol presents with dizziness and lightheadedness and palpitations that began yesterday evening. She states that yesterday evening she had decreased appetite, and did not feel quite well. She denies any recent fevers or chills. She may have been slightly nauseated as well. This morning when she awoke, her symptoms worsened with increasing lightheadedness and dizziness. She states that she checked her heart rate and it ranged from low to as high as 130 bpm. She feels like she might be in atrial fibrillation again. She states she is post have an echocardiogram performed on the , approximately 3 weeks from now. She sees her box brander Dr. Bassett, who states that before any medication adjustment, he wanted to see an echocardiogram. She presents because she stated to triage that she thinks she may be in atrial fibrillation again. No previous cardioversions. [facility] Medical History Chest pain Afib Dyspepsia Metabolic dysfunction-associated steatotic liver disease (MASLD) Lumbar radiculopathy Irregular heart rhythm Adult BMI 34.0-34.9 kg/sq m 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 classification Body mass index [BMI] 40.0-44.9, adult Insomnia, unspecified Overactive bladder Hyperglycemia, unspecified Dizziness Tremor, unspecified Benign paroxysmal positional vertigo Dysuria Anxiety Kidney stone High cholesterol Restless legs History of hiatal hernia CPAP (continuous positive airway pressure) dependence Sleep apnea Shortness of breath on exertion Depression Hyperlipidemia GERD (gastroesophageal reflux disease) COPD (chronic obstructive pulmonary disease) Cervicalgia Cervical radiculopathy Rotator cuff syndrome Segmental and somatic dysfunction of thoracic region Bursitis of right shoulder Bicipital tendinitis of right shoulder Family history of alcoholism TAMRA (obstructive sleep apnea) Rheumatoid arthritis Spontaneous rupture of extensor tendons, right forearm Segmental and somatic dysfunction of lumbar region Home Medications ?Medication ?Instructions ?Recorded ?Last Taken ?Type omeprazole 40 mg capsule,delayed 40 mg PO DAILY 05/18/16 04/07/24 History release albuterol sulfate 2.5 mg/3 mL 2.5 mg (3 mL) inhalation Q6H PRN 04/26/21 Unknown Rx (0.083 %) solution for nebulization Wheezing #180 mL cholecalciferol (vitamin D3) 25 25 mcg PO DAILY 05/09/23 04/06/24 History mcg (1,000 unit) capsule Held on 07/31/23. Instructions: HOLDS FOR SUMMER, RESTARTS IN FALL hydroxychloroquine 200 mg tablet 200 mg PO BID 05/09/23 04/06/24 History (Plaquenil) magnesium 250 mg tablet 250 mg PO DAILY 05/09/23 04/06/24 History trazodone 50 mg tablet 50 mg PO QHS 05/09/23 04/06/24 History albuterol sulfate 90 mcg/actuation 1 - 2 puff inhalation Q6H PRN PRN 08/30/23 04/07/24 Rx aerosol inhaler Sob &/Or Wheezing #18 grams mecobalamin (vitamin B12) 5,000 mcg PO 04/01/24 04/06/24 History mcg disintegrating tablet fluticasone fur. 100 mcg-umeclid 1 inh inhalation DAILY #3 ea 05/12/24 Unknown Rx 62.5 mcg-vilant 25 mcg inhalat.powder (Trelegy Ellipta) abatacept 125 mg/mL subcutaneous 125 mg subcut QWEEK 05/19/24 Unknown History auto-injector (Orencia ClickJect) fluoxetine 40 mg capsule 40 mg PO QDAY 05/19/24 Unknown History sulfasalazine 500 mg 0.5 g PO BID 05/19/24 Unknown History tablet,delayed release acetaminophen 325 mg tablet 325 mg PO Q6H PRN 05/29/24 Unknown History (Tylenol) ibuprofen 200 mg tablet 200 mg PO Q6H PRN 05/29/24 Unknown History furosemide 20 mg tablet 20 mg PO BID PRN 06/23/24 Unknown History gabapentin 300 mg capsule 300 mg PO TID 06/23/24 Unknown History paroxetine HCl 20 mg tablet 20 mg PO QDAY 06/23/24 Unknown History metoprolol tartrate 25 mg tablet 25 mg PO BID 08/06/24 Unknown History mirabegron 50 mg tablet,extended 50 mg PO QDAY 08/06/24 Unknown History release 24 hr potassium chloride 20 mEq 20 meq PO QDAY PRN 08/06/24 Unknown History tablet,extended release(part/cryst) rosuvastatin 10 mg tablet 10 mg PO QHS 08/06/24 Unknown History Allergy/AdvReac Type Severity Reaction Status Date / Time adalimumab (From Humira) Allergy Rash Verified 08/26/24 09:27 Penicillins Allergy Rash Verified 08/26/24 09:27 adhesive AdvReac Rash Verified 08/26/24 09:27 tramadol AdvReac FEELING OF Verified 08/26/24 09:27 CONFUSION Family History Mother COPD (chronic obstructive pulmonary disease) Heart disease Osteoarthritis TAMRA (obstructive sleep apnea) Hypertension Father Cancer throat Abuse, drug or alcohol Brother Abuse, drug or alcohol Allergies Grandmother Allergies Hypertension Heart disease Surgical History Hx of surgical procedure h/o trigger finger release History of surgery on arm History of laparoscopic cholecystectomy History of appendectomy Social History Smoking Status: Current every day smoker tobacco type: cigarettes Tobacco: How many years used: 40 second hand exposure: Yes alcohol intake: current alcohol intake frequency: holidays/special occasions only substance use type: does not use caffeine: Yes what type of physical activity do you participate in: none ROS ROS ED ROS Narrative Review of systems positive for lightheadedness and dizziness, positive palpitations. No current chest pain or shortness of breath. No exacerbating or alleviating factors. EXAM Physical Exam Narrative Exam Narrative: Afebrile. Vital signs noted. Nontoxic-appearing. Cardiovascular examination reveals an irregularly irregular rhythm with intermittent tachycardia, otherwise around 90 bpm. Lungs clear to auscultation bilaterally. Abdomen soft, nontender, with positive bowel sounds, no guarding or rebound. Neurological examination nonfocal, nonlateralizing. Awake, alert, interactive. No noted pedal edema. Const Vital Signs: 08/26/24 09:26 08/26/24 09:45 08/26/24 10:38 Temperature 97 F L Temperature Source Temporal Pulse Rate 91 99 Respiratory Rate 20 H 20 H Respiratory Effort Normal Non-Labored Blood Pressure 140/83 H 117/77 Blood Pressure Mean 102 90 Pulse Ox 96 98 Oxygen Delivery Method Room Air 08/26/24 11:00 08/26/24 11:15 08/26/24 11:30 Temperature Temperature Source Pulse Rate 82 83 82 Respiratory Rate 20 H 19 H 17 Respiratory Effort Blood Pressure 128/85 H Blood Pressure Mean 99 Pulse Ox 95 95 96 Oxygen Delivery Method 08/26/24 11:45 Temperature Temperature Source Pulse Rate 84 Respiratory Rate 19 H Respiratory Effort Blood Pressure 128/85 H Blood Pressure Mean 99 Pulse Ox 95 Oxygen Delivery Method Room Air MDM MDM MDM Narrative Medical decision making narrative: Differential diagnosis includes but not limited to paroxysmal atrial fibrillation versus A-fib with RVR versus dehydration versus electrolyte imbalance versus intravascular volume depletion for her lightheadedness and dizziness. EKG was obtained and interpreted by myself independently which shows atrial fibrillation with premature ventricular contractions at 87 bpm, no acute ST changes. No STEMI. I had a discussion with the patient that there is no current need for emergent cardioversion as she is not hypotensive and she is not symptomatic with current chest pain. She is currently rate controlled. She is on metoprolol 25 mg twice a day and took her dose this morning. EKG was obtained and interpreted by myself independently as atrial fibrillation at [address] changes. No STEMI. I reviewed her laboratory work and she has a normal white count of 7.7 with hemoglobin slightly hemoconcentrated at 15.5 with hematocrit 44.7, normal platelet count of 272. Electrolyte panel is grossly unremarkable with a BUN of 14 and creatinine 0.86, normal sodium and normal potassium of 4.0. Glucose slightly elevated at 109 with normal anion gap of 11 and's I doubt diabetic ketoacidosis. Chest x-ray interpreted by myself independently shows no evidence of pneumothorax, CHF, or pneumonia. I reviewed the radiology report which confirms my independent interpretation. Upon repeat examination, she still has a heart rate in the 80s. I discussed the patient with her box brander, Dr. Bassett, who did not make any recommendation and changes to her medication as her rate is currently controlled with her current dosing of metoprolol. She will continue her Eliquis and have her echocardiogram performed as an outpatient. I feel she can be discharged to follow-up and that she does not require observation because she is not in RVR. Patient motivated for discharge. Return instructions reviewed. Disposition is discharged home, in stable condition. History & Record Review Discussion w/independent historian: Patient Additional record(s) reviewed:: Prior ED visit Lab Data Attestation: I reviewed the patient's lab results. Labs: Laboratory Results - last 24 hr 08/26/24 10:10 WBC 7.7 RBC 4.87 Hgb 15.5 H Hct 44.7 MCV 91.8 MCH 31.8 MCHC 34.7 RDW Std Deviation 43.8 RDW Coeff of Solo 12.9 Plt Count 272 MPV 9.1 Immature Gran % (Auto) 0.400 Neut % (Auto) 64.6 Lymph % (Auto) 26.1 [place] % (Auto) 8.3 Eos % (Auto) 0.3 Baso % (Auto) 0.3 Absolute Neuts (auto) 5.0 Absolute Lymphs (auto) 2.02 Nucleated RBC % 0 Sodium 137 Potassium 4.0 Chloride 102 Carbon Dioxide 23.0 Anion Gap 11 BUN 14 Creatinine 0.86 Estim Creat Clear Calc 82.14 Est GFR (MDRD) Non-Af 76 BUN/Creatinine Ratio 16.1 Glucose 109 H Calcium 9.4 Radiography Chest X-Ray - ED: 1 View, Read by ED Physician, Read by Radiologist and No Acute Disease Diagnostic Testing: Clinical Impression(s) from Imaging Studies Chest X-Ray 08/26/24 10:22 IMPRESSION: Examination somewhat limited by obliquity of the chest. No evidence of pulmonary edema. Lungs appear clear. The cardiomediastinal silhouette is stable, given differences in obliquity, without evidence of cardiomegaly. No pleural effusion or pneumothorax is noted. No acute osseous change is seen. Degenerative changes and scoliosis of the thoracic spine are again noted. Reading Location: [address] Management Discussion w/another healthcare provider: Technical [employer] Director (Cardiology) Discharge Plan Triage Chief Complaint: Palpitations ED Provider: Jose Antoine Dx/Rx/DC Orders Clinical Impression: Paroxysmal atrial fibrillation, Lightheadedness, Palpitations Instructions: ED AFIB, ED Palpitations, ED Near-Fainting, Uncertain Cause Prescriptions: No Action trazodone 50 mg tablet 50 mg PO QHS magnesium 250 mg tablet 250 mg PO DAILY hydroxychloroquine [Plaquenil] 200 mg tablet 200 mg PO BID cholecalciferol (vitamin D3) 25 mcg (1,000 unit) capsule 25 mcg PO DAILY fluoxetine 40 mg capsule 40 mg PO QDAY sulfasalazine 500 mg tablet,delayed release (DR/EC) 0.5 g PO BID Orencia ClickJect 125 mg/mL auto-injector 125 mg subcut QWEEK Patient Comments: [NO ORIGINAL SIG] gabapentin 300 mg capsule 300 mg PO TID mirabegron 50 mg tablet extended release 24 hr 50 mg PO QDAY mecobalamin (vitamin B12) 5,000 mcg tablet,disintegrating PO acetaminophen [Tylenol] 325 mg tablet 325 mg PO Q6H PRN Patient Comments: Takes with ibuprofen 200 mg ibuprofen 200 mg tablet 200 mg PO Q6H PRN Patient Comments: Takes with tylenol 325 mg paroxetine HCl 20 mg tablet 20 mg PO QDAY furosemide 20 mg tablet 20 mg PO BID PRN rosuvastatin 10 mg tablet 10 mg PO QHS metoprolol tartrate 25 mg tablet 25 mg PO BID potassium chloride 20 mEq tablet,ER particles/crystals 20 meq PO QDAY PRN omeprazole 40 MG capsule 40 mg PO DAILY albuterol sulfate 2.5 mg /3 mL (0.083 %) solution for nebulization 2.5 mg INHALATION Q6H PRN (Reason: Wheezing) Qty: 180 3RF albuterol sulfate 90 mcg/actuation HFA aerosol inhaler 1 - 2 puff INHALATION Q6H PRN PRN (Reason: Sob &/Or Wheezing) Qty: 18 11RF Trelegy Ellipta 100-62.5-25 mcg blister with device 1 inh INHALATION DAILY Qty: 3 3RF Primary Care Provider: Summer Steele Referrals: Summer Steele MD [Primary Care Provider] - Lucas Bassett MD [Med Staff - Active Staff] - 1 Week if not improving Activity Restrictions/Additional Instructions: Continue your metoprolol as previously directed. Have your echocardiogram performed as scheduled. Follow-up with cardiology in 1 week if not improving. Return with elevated heart rate consistently above 120 bpm, new or worsening symptoms. Print Language: Togolese Disposition Disposition: Home, Self Care
[2024-08-26] MEDS: 0.9% Normal Saline (500mL Bag) 500 ML 1000 ML IV (10:31)
[2024-08-26 10:38] LABS: Hematocrit 44.7 % (37-47); Hemoglobin 15.5 g/dL (12.0-15.0); Immature Granulocytes Count 0.030 X10^3/uL (0.0-0.0); Mean Corp Hgb Conc 34.7 g/dL (32-36); Mean Corpuscular Volume 91.8 fL (81-99); Mean Platelet Vol. 9.1 fl (6.2-12.0); NRBC Flagged by Analyzer 0 % (0-5); Platelet Count 272 K/mm3 (150-450); RBC Distribution Width CV 12.9 % (11.6-14.6); RBC Distribution Width SD 43.8 fl (35.1-43.9); Red Blood Count 4.87 M/mm3 (4.2-5.4); White Blood Count 7.7 K/mm3 (4.4-11.0)
[2024-08-26 11:09] LABS: Anion Gap 11 (5-15); BUN 14 mg/dL (4-19); BUN/Creat Ratio 16.1 RATIO (10-20); Calcium,Total 9.4 mg/dL (7.6-11.0); Carbon Dioxide 23.0 mmol/L (21.0-32.0); Chloride 102 mmol/L (98-108); Estimated Creatinine Clearance 82.14 ml/min (50-250); Glucose 109 mg/dL (70-99); Potassium 4.0 mmol/L (3.3-5.1)
== END 2024-08-26 12:06 | disposition home or self-care (01) ==
PROVIDERS: Emergency Provider Emergency Medicine; PCP Family Medicine; Visit Provider Emergency Medicine
DX: I48.0 Paroxysmal atrial fibrillation (principal); J44.89 Other specified chronic obstructive pulmonary disease; R00.2 Palpitations; E78.00 Pure hypercholesterolemia, unspecified; R42 Dizziness and giddiness; Z79.01 Long term (current) use of anticoagulants; Z79.899 Other long term (current) drug therapy; G47.33 Obstructive sleep apnea (adult) (pediatric); Z99.89 Dependence on other enabling machines and devices; K21.9 Gastro-esophageal reflux disease without esophagitis; Z79.51 Long term (current) use of inhaled steroids; F41.9 Anxiety disorder, unspecified; F32.A Depression, unspecified; Z90.49 Acquired absence of other specified parts of digestive tract; F17.210 Nicotine dependence, cigarettes, uncomplicated
CPT/HCPCS: 71045; 80048; 85025; 93005; 96360; 99284; A4216

== ENCOUNTER → 2024-09-11 | Outpatient (CLI) | payer OTHER, SELFPAY ==
--- NOTE | 2024-09-11 15:00 | ECHOD_ITS ---
Reason For Study Reason For Study: AFIB Procedure This was a 2D Doppler, Color Flow transthoracic echocardiogram. Exam performed in department. Left Ventricle Normal LV size. Left ventricular systolic function is normal. The left ventricular ejection fraction is 70 %. No regional wall motion abnormalities noted. Right Ventricle Normal RV size. Normal systolic function. Atria The left atrium is mildly enlarged. Normal right atrium. Mitral Valve Normal mitral valve. Mild (1+) eccentric mitral valve insufficiency. Tricuspid Valve Normal tricuspid valve. Mild (1+) tricuspid valve insufficiency. Pulmonary artery systolic pressure is 33 mmHg. Aortic Valve Trisinus/trileaflet aortic valve. Mild (1+) aortic valve insufficiency. Pulmonic Valve Normal pulmonic valve. Great Vessels Normal aortic root. The pulmonary artery is normal size. Inferior vena cava collapse with respiration. Pericardium/Pleural No pericardial effusion. MMode/2D Measurements & Calculations RVDd: 4.0 cm LAV(MOD-bp): 87.9 ml LVAd ap4: 26.3 cm2 LAV(MOD-bp) Indexed: 41.1 ml/m2 LVLd ap4: 7.2 cm LAV(MOD-sp2): 76.3 ml EDV(MOD-sp4): 80.2 ml LAV(MOD-sp4): 90.4 ml EDV(sp4-el): 81.7 ml LVAs ap4: 11.3 cm2 LVLs ap4: 5.7 cm ESV(MOD-sp4): 20.9 ml ESV(sp4-el): 19.1 ml EF(MOD-sp4): 73.9 % EF(sp4-el): 76.6 % SV(MOD-sp4): 59.3 ml SV(sp4-el): 62.6 ml LA A4 area: 27.6 cm2 SI(MOD-sp4): 27.7 ml/m2 RA A4 area: 14.7 cm2 Time Measurements MV dec time: 0.21 sec Doppler Measurements & Calculations MV E max nick: 101.5 cm/sec Lat Peak E' Nick: 13.9 cm/sec Med Peak E' Nick: 9.8 cm/sec MV A max nick: 85.2 cm/sec E/E' lat: 7.3 E/E' med: 10.4 MV E/A: 1.2 MV V2 max: 103.3 cm/sec MV dec slope: 480.0 cm/sec2 Ao V2 max: 165.3 cm/sec MV max P.3 mmHg Ao max P.9 mmHg MV V2 mean: 64.7 cm/sec Ao V2 mean: 112.9 cm/sec MV mean P.9 mmHg Ao mean P.9 mmHg MV V2 VTI: 34.6 cm Ao V2 VTI: 38.0 cm AV (velocity ratio): 0.94 AI max nick: 480.3 cm/sec LV V1 max: 157.3 cm/sec TR max nick: 270.1 cm/sec AI max P.3 mmHg LV V1 max P.9 mmHg TR max P.2 mmHg LV V1 mean P.2 mmHg AI dec slope: 337.1 cm/sec2 LV V1 mean: 106.2 cm/sec AI P1/2t: 417.4 msec LV V1 VTI: 35.9 cm ECHO/Echo Complete Interpretation Summary Normal LV size. Left ventricular systolic function is normal. The left ventricular ejection fraction is 70 %. Mild (1+) aortic valve insufficiency. Ordering Physician: Lucas Bassett Referring Physician: Lucas Bassett Performed By: Fatmata Ortiz and Student
== END | disposition home or self-care (01) ==
LOC: CVS 14:59
PROVIDERS: PCP Family Medicine; Referring Provider Internal Medicine Cardiovascular Disease; Visit Provider Internal Medicine Cardiovascular Disease
DX: I48.91 Unspecified atrial fibrillation (principal); I35.1 Nonrheumatic aortic (valve) insufficiency
CPT/HCPCS: 93306

== ENCOUNTER → 2024-09-19 | Outpatient (CLI) | payer OTHER, SELFPAY ==
--- OUTSIDE RECORDS SUMMARY | 2024-09-19 07:11 | XMS RPT_ITS | CCD ---
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 Leon Pinto Chi Primary Care Provider Dr. Leon Pinto Chi Referring Provider Dr. Sanchez Shahid Attending Provider Cristian COMPENSATION ANALYST, COMPENSATION ANALYST-C Delisa Attending Provider John CARABALLO, PA Florence Ceja Attending Provider Shamar CARABALLO, PA Jaleel Attending Provider Elaine Evans Attending Provider Unavailable Dr. Leon Pinto Chi Primary Care Provider Dr. Leon Pinto Chi Referring Provider Dr. Leon Pinto Chi Primary Care Provider Dr. Leon Pinto Chi Referring Provider Cristian COMPENSATION ANALYST, COMPENSATION ANALYST-C Delisa Referring Provider Cristian COMPENSATION ANALYST, COMPENSATION ANALYST-C Delisa Other Provider Dr. Semaj Joseph Attending Provider [phone] Leon Pinto Chi Primary Care Provider [phone] Leon Pinto Chi Referring Provider [phone] Bebo CARABALLO, PA Juan Jose Ceja Attending Provider Dr. Semaj Joseph Referring Provider Blair, Dr. Leon Jacome Primary Care Provider [phone] Vera Sam Attending Provider Unavailable Dr. Leon Pinto Chi Referring Provider Gwen, Dr. Russell Attending Provider Friend, Dr. Russell Other Provider Blair, Dr. Leon Jacome Primary Care Provider Blair, Dr. Leon Jacome Referring Provider Friend, Dr. Russell Attending Provider [phone] Friend, Dr. Russell Other Provider Cristian COMPENSATION ANALYST, COMPENSATION ANALYST-C Delisa Attending Provider Blair, Dr. Leon Jacome Primary Care Provider Blair, Dr. Leon Jacome Referring Provider ILYA Lazcano Attending Provider Blair, Dr. Leon Jacome Primary Care Provider Blair, Dr. Leon Jacome Referring Provider Dr. Ventura Figueredo Attending Provider [phone] Blair, Dr. Leon Jacome Primary Care Provider Blair, Dr. Leon Jacome Referring Provider Dee Dee MARTIN, [facility] Primary Care Provider Blair, Dr. Leon Jacome Referring Provider Dr. Semaj Joseph Attending Provider MD Dee Dee [facility] Primary Care Provider [phone] SANGEETHA SILVA Attending Unavailable DEE DEE, CHALON Primary Care Unavailable Kalka, Phyllis Referring Unavailable DEE DEE, CHALON Primary Care Unavailable Kalka, Phyllis Referring Unavailable BLAIR, LEON CHI Referring Unavailable DEE DEE, CHALON Primary Care Unavailable Kalka, Phyllis Attending Unavailable DEE DEE, CHALON Primary Care Unavailable Kalka, Phyllis Referring Unavailable DEE DEE, CHALON Primary Care Unavailable Kalka, Phyllis Attending Unavailable Kalka, Phyllis Referring Unavailable DEE DEE, CHALON Primary Care Unavailable Kalka, Phyllis Referring Unavailable Dee Dee MARTIN, Summer Primary Care Provider [phone] Lawrence MARTIN, Dr. De La Rosa Attending Provider Lawrence MARTIN, Dr. De La Rosa Referring Provider Dee Dee MARTIN, Summer Referring Provider Jaleel Cuba Attending Provider Summer Funez MD Attending Provider Kala Canales Attending Provider Kala Canales Referring Provider Jake MARTIN, Dr. Cha Attending Provider Jake MARTIN, Dr. Cha Referring Provider Rafael COMPENSATION ANALYST-C, Heather Attending Provider Rafael COMPENSATION ANALYST-C, Heather Referring Provider Dee Dee MARTIN, Ohon Primary Care Provider [phone] Lawrence MARTIN, Dr. De La Rosa Attending Provider Lawrence MARTIN, Dr. De La Rosa Referring Provider [phone] [phone] Dee Dee MARTIN, Chalon Primary Care Provider [phone] Dee Dee MARTIN, Summer Referring Provider [phone] Cristian COMPENSATION ANALYST-CDelisa Attending Provider Dee Dee MARTIN, Ohon Primary Care Provider [phone] Dee Dee MARTIN, Summer Referring Provider [phone] Dee Dee MARTIN, Summer Other Provider Dl MARTIN, Dr. Olson Attending Provider Dee Dee, Chalon Primary Care Unavailable Cristopher, Kala Referring Unavailable Wilver Nicholastlyn Attending Unavailable Semaj Joseph Attending Unavailable Semaj Joseph Referring Unavailable Dee Dee, Chalon Primary Care Unavailable Dee Dee, Ohon Attending Unavailable Dee Dee, Chalon Referring Unavailable Dee Dee, Chalon Primary Care Unavailable Dee Dee, Chalon Primary Care Unavailable Walter Kovacs Attending Unavailable Waltre Kovacs Referring Unavailable Heather Hall Referring Unavailable Dee Dee, Chalon Primary Care Unavailable Dee Dee, Chalon Consulting Unavailable Heather Hall Attending Unavailable Rj Bravo Referring Unavailable Rj Bravo Attending Unavailable Dee Dee, Chalon Primary Care Unavailable Dee Dee, Chalon Primary Care Unavailable Rj Bravo Referring Unavailable Rj Bravo Attending Unavailable Dee Dee, Chalon Primary Care Unavailable Rj Bravo Attending Unavailable Dee Dee, Chalon Referring Unavailable Dee Dee, Chalon Attending Unavailable Dee Dee, Chalon Primary Care Unavailable Lucas Bassett Attending Unavailable Danyelle, Lucas Referring Unavailable Dee Dee, Chalon Primary Care Unavailable RafaelHeather Referring Unavailable Dee Dee, Chalon Primary Care Unavailable Heather Hall Attending Unavailable Jose Antoine Attending Unavailable Dee Dee, Chalon Primary Care Unavailable Dee Dee, Chalon Primary Care Unavailable CristopherKala Attending Unavailable Cristopher, Kala Referring Unavailable Dee Dee, Chalon Primary Care Unavailable CristopherKobiyn Attending Unavailable Cristopher, Kala Referring Unavailable Dl, Wesley Attending Unavailable Dl, Wesley Referring Unavailable Dee Dee, Chalon Primary Care Unavailable Cristian COMPENSATION ANALYST, Delisa Attending Unavailable Dee Dee, Chalon Primary Care Unavailable Cristian COMPENSATION ANALYST, Delisa Referring Unavailable Cristian COMPENSATION ANALYST, Delisa Attending Unavailable Dee Dee, Chalon Primary Care Unavailable Cristian COMPENSATION ANALYST, Delisa Referring Unavailable Dee Dee, Chalon Referring Unavailable Dee Dee, Chalon Primary Care Unavailable CristopherKobiyn Attending Unavailable Dee Dee, Chalon Referring Unavailable Juan Jose Lagunas Attending Unavailable Dee Dee, Chalon Primary Care Unavailable Dee Dee, Chalon Referring Unavailable Dee Dee, Chalon Primary Care Unavailable Heather Hall Attending Unavailable Aaron Rai Attending Unavailable Dee Dee, Chalon Referring Unavailable Dee Dee, Chalon Primary Care Unavailable Dee Dee, Chalon Referring Unavailable Dee Dee, Chalon Primary Care Unavailable Jaleel Cuba Attending Unavailable Dee Dee, Chalon Primary Care Unavailable Heather Hall Attending Unavailable RafaelHeather Referring Unavailable Dee Dee, Chalon Referring Unavailable Dee Dee, Chalon Primary Care Unavailable Walter Kovacs Attending Unavailable Danyelle Weiser Attending Unavailable Dee Dee, Chalon Primary Care Unavailable Dee Dee, Chalon Referring Unavailable Dee Dee, Chalon Primary Care Unavailable CristopherKobiyn Attending Unavailable Dee Dee, Chalon Referring Unavailable Dee Dee, Chalon Primary Care Unavailable Dl Wesley Attending Unavailable Dee Dee, Chalon Referring Unavailable Danyelle, Lucas Attending Unavailable Dee Dee, Chalon Primary Care Unavailable Cristian COMPENSATION ANALYST, Delisa Attending Unavailable Dee Dee, Chalon Referring Unavailable Dee Dee, Chalon Primary Care Unavailable Dee Dee, Chalon Primary Care Unavailable Rj Bravo Attending Unavailable Allergies Allergy Classification Reported Allergen(s) Allergy Type Date of Onset Reaction(s) Facility (20 sources) adalimumab; Translations: [ADALIMUMAB] Drug Allergy 7 Other: See Comments, Rash [facility] (20 sources) Penicillins; Translations: [PENICILLINS] Allergy to substance 8 [facility] (20 sources) traMADol; Translations: [TRAMADOL] Drug Allergy 3 GI Upset [facility] (20 sources) Adhesive agent; Translations: [ADHESIVE] Propensity to adverse reactions 3 [facility] (1 source) adalimumab Drug Allergy 5 [facility] (1 source) traMADol Drug Allergy 5 [facility] Medications Current Medications Medication Drug Class(es) Dates Sig (Normalized) Sig (Original) 1 ml abatacept 125 mg/ml auto-injector (20 sources) Selective T Cell Costimulation Modulator Start: 05-19-2024 Abatacept (Orencia Clickject) 125 mg/mL auto-injector Active 125 mg SC EVERY WEEK May 19, 2024 12:00am Start: 12-10-2020 End: 05-19-2024 Abatacept (Orencia) 50 mg/0. 4 mL syringe Discontinued 50 mg SC EVERY WEEK December 10, 2020 12:00am May 19, 2024 9:44am EVERY SUNDAY acetaminophen 325 mg oral tablet (1 source) Start: 05-29-2024 take 1 tablet by mouth every six hours as needed Acetaminophen (Tylenol) 325 mg tablet Active 325 mg PO EVERY 6 HOURS as needed May 29, 2024 12:00am cholecalciferol 0.025 mg oral capsule (20 sources) Vitamin D Start: 05-09-2023 take 1 capsule by mouth once daily Cholecalciferol (Vitamin D3) 25 mcg (1,000 unit) capsule Active 25 ug PO DAILY May 09, 2023 12:00am On Hold: HOLDS FOR SUMMER, RESTARTS IN FALL Start: 04-29-2018 End: 09-01-2019 take 1 capsule by mouth every week Cholecalciferol (Vitamin D3) 50,000 unit capsule Discontinued 04147 U PO EVERY WEEK April 29, 2018 12:00am September 01, 2019 2:16pm take 1 capsule by [facility] once daily Cholecalciferol, Vitamin D3, (VITAMIN D) 1,000 unit cap Take 1,000 Units by mouth once daily. 0 Active Comment on above: Take 1,000 Units by mouth once daily. doxycycline monohydrate 100 mg oral capsule (2 sources) Tetracycline-class Drug Start: 2 take 100 mg by mouth twice daily Doxycycline Monohydrate Active 100 MG PO TWICE A DAY April 23, 2021 11:53am FLUoxetine 40 mg oral capsule (20 sources) Serotonin Reuptake Inhibitor Start: take 1 capsule by mouth once daily Fluoxetine 40 mg capsule Active 40 mg PO daily May 19, 2024 12:00am Start: 05-09-2023 End: 05-19-2024 take 1 capsule by mouth once daily Fluoxetine 10 mg capsule Discontinued 10 mg PO DAILY May 09, 2023 12:00am May 19, 2024 9:41am Comment on above: Take 10 mg by mouth once daily. Fluticasone-Umeclidin- Vilanter (20 sources) Anticholinergic, Corticosteroid, beta2-Adrenergic Agonist Start: 05-12-2024 Twmaiqtpson-Fkczankmt-Ci lanter (Trelegy Ellipta) 100-62.5-25 mcg blister with device Active 1 NMA INHALATION DAILY May 12, 2024 2:36pm Start: 05-07-2023 End: 05-12-2024 Cldfvdeklmz-Rwxqjndrc-Aujcsh er (Trelegy Ellipta) 100-62.5-25 mcg blister with device Discontinued 1 NMA INHALATION DAILY May 07, 2023 11:48am May 12, 2024 2:39pm Start: 05-07-2023 Fluticasone-Um eclidin-Vilanter (Trelegy Ellipta) 100-62.5-25 mcg blister with device Active 1 NMA INHALATION DAILY May 07, 2023 11:48am Start: 05-07-2023 Fluticasone-Um eclidin-Vilanter (Trelegy Ellipta) 100-62.5-25 mcg blister with device Active 1 INH INHALATION DAILY May 07, 2023 11:48am Start: 05-11-2022 End: 05-07-2023 Yjssufiibsn-Tvfutcmpw-Zeyupt er (Trelegy Ellipta) 100-62.5-25 mcg blister with device Discontinued 1 NMA INHALATION DAILY 3 May 11, 2022 10:22am May 07, 2023 11:48am Start: 05-11-2022 End: 05-07-2023 Dedohpzegpm-Irejkcsuh-Cfwyev er (Trelegy Ellipta) 100-62.5-25 mcg blister with device Discontinued 1 INH INHALATION DAILY 3 May 11, 2022 10:22am May 07, 2023 11:48am Start: 05-11-2022 Fluticasone-Um eclidin-Vilanter (Trelegy Ellipta) 100-62.5-25 mcg blister with device Active 1 INH INHALATION DAILY 3 May 11, 2022 9:22am Start: 05-11-2022 Fluticasone-Um eclidin-Vilanter (Trelegy Ellipta) 100-62.5-25 mcg blister with device Active 1 INH INHALATION DAILY 3 May 11, 2022 10:22am Start: 04-20-2021 End: 05-11-2022 Rsnytaahxhd-Zvoirsvyc-Nwnghr er (Trelegy Ellipta) 100-62.5-25 mcg blister with device Discontinued 1 NMA INHALATION DAILY 60 April 20, 2021 3:04pm May 11, 2022 10:22am Start: 04-20-2021 End: 05-11-2022 Bnugjszkbbg-Iiqyfiwsg-Frpzpr er (Trelegy Ellipta) 100-62.5-25 mcg blister with device Discontinued 1 INH INHALATION DAILY 60 April 20, 2021 2:04pm May 11, 2022 9:22am Start: 04-20-2021 End: 05-11-2022 Flqwviklumn-Rhavvxcls-Rmjxjc er (Trelegy Ellipta) 100-62.5-25 mcg blister with device Discontinued 1 INH INHALATION DAILY 60 April 20, 2021 3:04pm May 11, 2022 10:22am Start: 04-20-2021 Fluticasone-Um eclidin-Vilanter (Trelegy Ellipta) 100-62.5-25 mcg blister with device Active 1 INH INHALATION DAILY 60 April 20, 2021 2:04pm Start: 04-20-2021 Fluticasone-Um eclidin-Vilanter (Trelegy Ellipta) 100-62.5-25 mcg blister with device Active 1 INH INHALATION DAILY 60 April 20, 2021 3:04pm Start: 06-02-2020 End: 04-20-2021 Kyarufayvwn-Btbxigvhw-Kgtuta er (Trelegy Ellipta) 100-62.5-25 mcg blister with device Discontinued 1 NMA INHALATION DAILY 60 June 02, 2020 11:18am April 20, 2021 3:04pm Start: 06-02-2020 End: 04-20-2021 Wddudgcdzxa-Qdbcaazhr-Flkbtl er (Trelegy Ellipta) 100-62.5-25 mcg blister with device Discontinued 1 INH INHALATION DAILY 60 June 02, 2020 10:18am April 20, 2021 2:04pm Start: 06-02-2020 End: 04-20-2021 Ciqejlfgenq-Rydcflida-Kxjmwl er (Trelegy Ellipta) 100-62.5-25 mcg blister with device Discontinued 1 INH INHALATION DAILY 60 June 02, 2020 11:18am April 20, 2021 3:04pm Start: 05-06-2019 End: 06-02-2020 Tpfvvwhcaad-Zbmyposyj-Mrtnws er (Trelegy Ellipta) 100-62.5-25 mcg blister with device Discontinued 1 NMA INHALATION DAILY 60 May 06, 2019 8:08am June 02, 2020 11:19am Start: 05-06-2019 End: 06-02-2020 Mdmlfrnrnyi-Pdmkhsrgd-Kdrvwn er (Trelegy Ellipta) 100-62.5-25 mcg blister with device Discontinued 1 INH INHALATION DAILY 60 May 06, 2019 7:08am June 02, 2020 10:19am Start: 05-06-2019 End: 06-02-2020 Baewlrfkszg-Xjmngjkbn-Cjztht er (Trelegy Ellipta) 100-62.5-25 mcg blister with device Discontinued 1 INH INHALATION DAILY 60 May 06, 2019 8:08am June 02, 2020 11:19am Start: 04-29-2018 End: 05-06-2019 Mtglavlgsiw-Zugvavwyp-Migaec er (Trelegy Ellipta) 100-62.5-25 mcg blister with device Discontinued 1 INH INHALATION DAILY 60 April 29, 2018 11:01am May 06, 2019 8:09am Start: 04-29-2018 End: 05-06-2019 Thuuglpstek-Uwmfghgvk-Depyxy er (Trelegy Ellipta) 100-62.5-25 mcg blister with device Discontinued 1 NMA INHALATION DAILY 60 April 29, 2018 12:00am May 06, 2019 8:09am Start: 04-29-2018 End: 05-06-2019 Uvuohimpslm-Zuxcvbvel-Csfxwj er (Trelegy Ellipta) 100-62.5-25 mcg blister with device Discontinued 1 INH INHALATION DAILY 60 April 28, 2018 11:00pm May 06, 2019 7:09am Start: 04-29-2018 End: 05-06-2019 Wjjokxgpgpl-Yxmrrtpgr-Dwmtma er (Trelegy Ellipta) 100-62.5-25 mcg blister with device Discontinued 1 INH INHALATION DAILY 60 April 29, 2018 12:00am May 06, 2019 8:09am take 1 puff(s) by inhalation once daily adyqbdvjjgp-lwehbimrj-xixidomc (TRELEGY ELLIPTA) 100-62.5-25 mcg inhalation powder Inhale 1 Puff as instructed once daily. 0 Active Comment on above: Inhale 1 Puff as ins tructed once daily. gabapentin 300 mg oral capsule (20 sources) Anti-epileptic Agent Start: 05-19-2024 take 1 capsule by mouth three times daily as needed Gabapentin 300 mg capsule Active 300 mg PO THREE TIMES A DAY as needed May 19, 2024 12:00am Start: 05-09-2023 End: 05-19-2024 take 1 capsule by mouth three times daily as needed for pain Gabapentin (Neurontin) 100 mg capsule Discontinued 100 mg PO THREE TIMES A DAY as needed for pain December 29, 2023 10:24am May 19, 2024 9:43am Comment on above: Take 100 mg by mouth three times a day. hydroxychloroquine sulfate 200 mg oral tablet (20 sources) Antimalarial, Antirheumatic Agent Start: 2023 take 1 tablet by mouth twice daily Hydroxychloroquine (Plaquenil) 200 mg tablet Active 200 mg PO TWICE A DAY May 09, 2023 12:00am Start: 05-18-2016 End: 05-11-2022 take 1 tablet by mouth twice daily at mealtime Hydroxychloroquine 200 MG tablet Discontinued 200 mg PO TWICE DAILY WITH MEALS May 18, 2016 12:00am May 11, 2022 10:07am Comment on above: Take by mouth twice daily. ibuprofen 200 mg oral tablet (20 sources) Nonsteroidal Anti-inflammatory Drug Start: 05-29-2024 take 1 tablet by mouth every six hours as needed Ibuprofen 200 mg tablet Active 200 mg PO EVERY 6 HOURS as needed May 29, 2024 12:00am Start: 12-21-2020 End: 05-09-2023 take 2 tablets by mouth every six hours as needed for pain Ibuprofen 200 mg Tablet Discontinued 400 mg PO EVERY 6 HOURS as needed for PAIN December 21, 2020 12:00am May 09, 2023 7:13am Start: 12-21-2020 End: 05-09-2023 take 400 mg by mouth every six hours Ibuprofen Discontinued 400 MG PO EVERY 6 HOURS December 21, 2020 12:00am May 09, 2023 7:13am End: 05-11-2023 take 1 tablet by mouth every six hours as needed ibuprofen (MOTRIN) 200 mg tablet Take 200 mg by mouth every 6 hours as needed. 0 05/11/2023 Discontinued (Course of therapy completed) Comment on above: Take 200 mg by mouth every 6 hours as needed. iv contrast (will be provided with radiology test) (1 source) Start: 05-11-19 End: 05-12-19 iv contrast (will be provided with radiology test) Indications: Chronic RUQ pain , Right upper quadrant abdominal pain MRI PANC/KATIE Inject, intravenously, once for 1 dose. No IV access, insert saline lock prior to the beginning of sedation, infusion, injection of imaging exam. Discontinue saline lock post exam. If Pt. has a central line or IVAD, may access for administration according to line specific nursing protocol. Once exam is complete flush line and de-access according to line specific nursing protocol in the MR contrast administration guidelines link. 1 Each 0 05/11/2023 05/12/2023 Active Comment on above: MRI PANC/KATIE Inject, intravenously, once for 1 dose. No IV access, insert saline lock prior to the beginning of sedation, infusion, injection of imaging exam. Discontinue saline lock post exam. If Pt. has a central line or IVAD, may access for administration according to line specific nursing protocol. Once exam is complete flush line and de-access according to line specific nursing protocol in the MR contrast administration guidelines link. leflunomide 20 mg oral tablet (7 sources) Antirheumatic Agent Start: 06-07-19 take 1 tablet by mouth once daily Leflunomide 20 mg tablet Active 20 mg PO DAILY June 07, 2023 12:00am Magnesium (19 sources) Start: 05-09-19 24 take 1 tablet by mouth once daily Magnesium 250 mg tablet Active 250 mg PO DAILY May 09, 2023 12:00am Start: 05-09-2023 take 250 mg by mouth once richa y Magnesium Active 250 MG PO DAILY May 09, 2023 12:00am Magnesium 250 mg tab Take 250 mg by mouth. 0 Active Comment on above: Take 250 mg by mouth . mecobalamin 5 mg disintegrating oral tablet (6 sources) Start: 5 Mecobalamin (Vitamin B12) 5,000 mcg tablet,disintegratin g Active ug PO April 01, 2024 1:00am 24 hr mirabegron 50 mg extended release oral tablet (20 sources) beta3-Adrenergic Agonist Start: 5 take 1 tablet by mouth once daily Mirabegron 50 mg tablet extended release 24 hr Active 50 mg PO daily May 19, 2024 12:00am Start: 12-21-2020 End: 05-19-2024 take 1 tablet by mouth once daily Mirabegron (Myrbetriq) 25 mg Tablet Extended Release 24 Hr Discontinued 25 mg PO DAILY December 21, 2020 12:00am May 19, 2024 9:43am Comment on above: Take by mouth. omeprazole 40 mg delayed release oral capsule (20 sources) Proton Pump Inhibitor Start: take 1 capsule by mouth once daily Omeprazole 40 MG capsule Active 40 mg PO DAILY May 18, 2016 12:00am Comment on above: Take 40 mg by mouth once daily. sulfaSALAzine 500 mg delayed release oral tablet (3 sources) Aminosalicylate Start: 025 take 0.5 g by mouth twice daily Sulfasalazine 500 mg tablet,delayed release (DR/EC) Active 0.5 g PO TWICE A DAY May 19, 2024 12:00am traZODone hydrochloride 50 mg oral tablet (19 sources) Serotonin Reuptake Inhibitor Start: 024 take 1 tablet by mouth at bedtime Trazodone 50 mg tablet Active 50 mg PO AT BEDTIME May 09, 2023 12:00am Comment on above: Take 50 mg by mouth daily at bedtime. Completed/Discontinued Medications Medication Drug Class(es) Dates Sig (Normalized) Sig (Original) [id number] 200 actuat albuterol 0.09 mg/actuat metered dose inhaler (20 sources) beta2-Adrenergic Agonist Start: 04-20-2021 take 1 puff(s) by inhalation every six hours as needed Albuterol Sulfate Active 1 - 2 PUFF INHALATION EVERY 6 HOURS NEEDED April 20, 2021 3:05pm Start: 09-01-2019 End: 08-30-2023 Albuterol Sulfate 90 mcg/act uation HFA aerosol inhaler Discontinued 1 - 2 NMA INHALATION EVERY 6 HOURS NEEDED as needed for Sob &/Or Wheezing May 11, 2022 10:22am August 30, 2023 2:07pm Start: 09-01-2019 End: 05-11-2022 take 1 puff(s) by inhalation every six hours as needed Albuterol Sulfate Discontinued 1 - 2 PUFF INHALATION EVERY 6 HOURS NEEDED April 20, 2021 3:05pm May 11, 2022 10:22am Start: 01-30-2018 End: 09-01-2019 Albuterol Sulfate 90 mcg/act uation HFA aerosol inhaler Discontinued 1 - 2 NMA INHALATION EVERY 6 HOURS NEEDED as needed for Sob &/Or Wheezing January 30, 2018 9:48am September 01, 2019 2:18pm Start: 01-30-2018 End: 09-01-2019 take 1 puff(s) by inhalation every six hours as needed Albuterol Sulfate Discontinued 1 - 2 PUFF INHALATION EVERY 6 HOURS NEEDED January 30, 2018 9:48am September 01, 2019 2:18pm Start: 01-30-2018 End: 09-01-2019 take 1 puff(s) by inhalation every six hours as needed Albuterol Sulfate Discontinued 1 - 2 PUFF INHALATION EVERY 6 HOURS NEEDED January 30, 2018 9:48am September 01, 2019 2:18pm Start: 02-13-2017 End: 04-26-2021 take 2.5 mg by inhalation every six hours as needed for wheezing Albuterol Sulfate 2.5 mg /3 mL (0.083 %) solution for nebulization Discontinued 2.5 mg INHALATION EVERY 6 HOURS as needed for Wheezing 180 February 28, 2019 5:06pm April 26, 2021 11:09am Start: 05-18-2016 End: 01-30-2018 Albuterol Sulfate 1 INHALER inhaler Discontinued 1 - 2 NMA INHALATION EVERY 6 HOURS NEEDED as needed for Sob &/Or Wheezing May 18, 2016 12:00am January 30, 2018 9:49am Start: 05-18-2016 End: 01-30-2018 take 1 puff(s) by inhalation every six hours as needed Albuterol Sulfate Discontinued 1 - 2 PUFF INHALATION EVERY 6 HOURS NEEDED May 18, 2016 12:00am January 30, 2018 9:49am azithromycin 250 mg oral tablet (20 sources) Macrolide Antimicrobial Start: 12-29-2023 End: 01-07-2024 Azithromycin 250 mg tablet Discontinued 0 PO .COMPLEX December 29, 2023 1:00am January 07, 2024 7:00am For 250 mg dose pack: take 500 mg today (day 1), then 250 mg for 4 days (days 2-5) PO Start: 08-03-2022 End: 05-09-2023 take 2-5 tablets by mouth once daily Azithromycin 250 mg tablet Discontinued 0 PO .COMPLEX August 03, 2022 12:00am May 09, 2023 7:11am take 500 mg today (day 1), then 250 mg for 4 days (days 2-5) PO baricitinib 2 mg oral tablet (20 sources) Start: 12-17-2018 End: 07-02-2020 take 1 tablet by mouth once daily Baricitinib (Olumiant) 2 mg tablet Discontinued 2 mg PO DAILY December 17, 2018 12:00am July 02, 2020 8:38am benzonatate 100 mg oral capsule (20 sources) Non-narcotic Antitussive Start: 08-03-2022 End: 05-09-2023 take 2 capsules by mouth three times daily as needed for cough Benzonatate 100 mg capsule Discontinued 200 mg PO THREE TIMES A DAY as needed for cough August 03, 2022 12:00am May 09, 2023 7:13am Start: 08-03-2022 End: 05-09-2023 take 200 mg by mouth three times daily Benzonatate Discontinued 200 MG PO THREE TIMES A DAY August 03, 2022 12:00am May 09, 2023 7:13am Start: 01-28-2018 End: 12-17-2018 take 1 capsule by mouth three times daily as needed for cough Benzonatate 200 mg capsule Discontinued 200 mg PO THREE TIMES A DAY as needed for cough January 28, 2018 1:00am December 17, 2018 9:55am 12 hr buPROPion hydrochloride 150 mg extended release oral tablet (20 sources) Aminoketone Start: 07-02-2020 End: 05-09-2023 take 1 tablet by mouth once daily Bupropion Hcl 150 mg tablet sustained-release 12 hr Discontinued 150 mg PO DAILY July 02, 2020 12:00am May 09, 2023 7:13am cefdinir 300 mg oral capsule (6 sources) Cephalosporin Antibacterial Start: 01-12-2024 End: 04-01-2024 take 1 capsule by mouth twice daily Cefdinir 300 mg capsule Discontinued 300 mg PO TWICE A DAY January 12, 2024 1:00am April 01, 2024 12:15pm ciprofloxacin 500 mg oral tablet (20 sources) Quinolone Antimicrobial Start: 12-29-2016 End: 02-13-2017 take 1 tablet by mouth twice daily Ciprofloxacin Hcl 500 MG tablet Discontinued 500 mg PO TWICE A DAY December 29, 2016 1:00am February 13, 2017 2:43pm clindamycin 300 mg oral capsule (20 sources) Lincosamide Antibacterial Start: 03-09-2022 End: 05-09-2023 take 1 capsule by mouth every six hours Clindamycin Hcl 300 mg Capsule Discontinued 300 mg PO EVERY 6 HOURS March 09, 2022 1:00am May 09, 2023 7:14am dexlansoprazole 60 mg delayed release oral capsule (1 source) Proton Pump Inhibitor End: 04-18-2023 Dexlansoprazole (DEXILANT) 60 mg CpDM Take by mouth. 0 04/18/2023 Discontinued Comment on above: Take by mouth. dicyclomine hydrochloride 20 mg oral tablet (19 sources) Anticholinergic Start: 05-09-2023 End: 07-31-2023 take 1 tablet by mouth twice daily Dicyclomine 20 mg tablet Discontinued 20 mg PO TWICE A DAY May 09, 2023 12:00am July 31, 2023 10:13am Comment on above: Take 20 mg by mouth before meals and at bedtime. diphenhydrAMINE hydrochloride 50 mg oral capsule (20 sources) Histamine-1 Receptor Antagonist Start: 07-02-2020 End: 05-09-2023 take 1 capsule by mouth at bedtime Diphenhydramine Hcl (Sleep Aid (Diphenhydramine)) 50 mg capsule Discontinued 50 mg PO AT BEDTIME July 02, 2020 12:00am May 09, 2023 7:12am take 1 tablet by aye th every twenty-four hours as needed diphenhydrAMINE HCL (BENADRYL ALLERGY) 5 0 mg tablet Take 50 mg by mouth at bedtime as needed. 0 Active Comment on above: Take 50 mg by mouth at bedtime as needed. docusate sodium 100 mg oral capsule (20 sources) Start: 07-02-2020 End: 12-10-2020 take 1 capsule by mouth once daily Docusate Sodium 100 mg capsule Discontinued 100 mg PO DAILY July 02, 2020 12:00am December 10, 2020 10:31am folic acid 1 mg oral tablet (20 sources) Start: 03-09-2022 End: 04-18-2023 take 1 tablet by mouth twice daily Folic Acid 1 mg tablet Discontinued 1 mg PO TWICE A DAY March 09, 2022 1:00am May 11, 2022 10:07am Start: 04-09-2017 End: 07-02-2020 take 1 tablet by mouth once daily Folic Acid 1 MG tablet Discontinued 1 mg PO DAILY@0800 April 09, 2017 1:00am July 02, 2020 8:38am Comment on above: Take 1 mg by mouth. leucovorin 5 mg oral tablet (20 sources) Folate Analog Start: 03-09-19 End: 05-12-19 take 1 tablet by mouth every week Leucovorin Calcium 5 mg tablet Discontinued 5 mg PO EVERY WEEK March 09, 2022 1:00am May 11, 2022 10:07am levoFLOXacin 500 mg oral tablet (20 sources) Quinolone Antimicrobial Start: 01-29-20 End: 04-30-19 take 1 tablet by mouth once daily Levofloxacin 500 mg tablet Discontinued 500 mg PO DAILY January 28, 2018 1:00am April 29, 2018 10:32am loratadine 10 mg oral capsule (20 sources) Start: 07-03-19 End: 05-09-19 take 1 capsule by mouth once daily Loratadine 10 mg capsule Discontinued 10 mg PO DAILY July 02, 2020 12:00am May 09, 2023 7:13am methotrexate 2.5 mg oral tablet (20 sources) Folate Analog Metabolic Inhibitor Start: 03-09-19 End: 05-12-19 Methotrexate Sodium 2.5 mg tablet Discontinued 20 mg PO EVERY WEEK March 09, 2022 1:00am May 11, 2022 10:07am Start: 03-09-2022 End: 05-11-2022 take 20 mg by mouth every week Methotrexate Sodium Dis continued 20 MG PO EVERY WEEK March 09, 2022 1:00am May 11, 2022 10:07am Start: 12-10-2020 take 6 tablets by mo uth every week Methotrexate Sodium Active 0 PO EVERY WEEK December 10, 2020 12:00am take 6 tablets PO every week; Start: 04-09-2017 End: 03-15-2020 Methotrexate Sodium 2.5 MG t ablet Discontinued 25 mg PO EVERY WEEK April 09, 2017 1:00am March 15, 2020 3:02pm Start: 04-09-2017 End: 03-15-2020 take 25 mg by mouth every week Methotrexate Sodium Dis continued 25 MG PO EVERY WEEK April 09, 2017 1:00am March 15, 2020 3:02pm End: 04-18-2023 take 4 tablets by mouth once methotrexate 2.5 mg table t Take 10 mg by mouth every Sunday. 0 04/18/2023 Discontinued Comment on above: Take 10 mg by mouth every Sunday. methylPREDNISolone 4 mg oral tablet (20 sources) Corticosteroid Start: 2020 End: 2020 take 1 tablet by mouth once Methylprednisolone (Medrol (Daryl)) 4 mg tablets,dose pack Discontinued 4 mg PO per package directions 21 October 22, 2020 12:00am October 26, 2020 12:00am October 27, 2020 12:01am Start: 07-02-2020 End: 07-02-2020 Depo-Medrol (methylprednisol one acetate) 40 mg/mL suspension for injection Discontinued 40 MG INTRAARTIC ONCE 1 July 02, 2020 8:07am July 02, 2020 8:51am Multivitamin capsule (1 source) End: 04-18-2023 take 1 capsule by mouth once daily Multivitamin capsule Take 1 capsule by mouth once daily. 0 04/18/2023 Discontinued Comment on above: Take 1 capsule by mo uth once daily. oxyCODONE hydrochloride 5 mg oral tablet (20 sources) Opioid Agonist Start: 12-28-2020 End: 01-10-2021 take 2.5-5 mg by mouth every four hours as needed for pain Oxycodone 5 mg tablet Discontinued 2.5 - 5 mg PO Q4H as needed for pain 7 2 December 28, 2020 January 10, 2021 10:23am PARoxetine hydrochloride 20 mg oral tablet (20 sources) Serotonin Reuptake Inhibitor Start: 04-29-2018 End: 05-09-2023 take 1 tablet by mouth once daily Paroxetine Hcl 20 mg tablet Discontinued 20 mg PO DAILY April 29, 2018 12:00am May 09, 2023 7:13am Potassium (11 sources) Potassium 20 mg Chew Take by mouth. 0 Active Comment on above: Take by mouth. potassium citrate 15 meq extended release oral tablet (20 sources) Start: 06-07-2023 End: 07-31-2023 take 10 mEq by mouth three times daily Potassium Citrate 15 mEq tablet extended release Discontinued 10 meq PO THREE TIMES A DAY June 07, 2023 9:54am July 31, 2023 10:15am Start: 06-07-2023 take 10 mEq by mouth three times daily Potassium Citrate Active 10 MEQ PO THREE TIMES A DAY June 07, 2023 9:54am Start: 06-07-2023 End: 04-01-2024 take 1 tablet by mouth once daily Potassium Citrate 10 mEq (1,080 mg) tablet extended release Discontinued 10 meq PO DAILY June 07, 2023 12:00am April 01, 2024 12:14pm Start: 06-07-2023 take 10 mEq by mouth three times daily Potassium Citrate Active 10 MEQ PO THREE TIMES A DAY June 07, 2023 12:00am Start: 12-17-2018 End: 06-07-2023 Potassium Citrate 15 mEq tab let extended release Discontinued 20 meq PO DAILY December 17, 2018 9:54am June 07, 2023 10:03am Start: 12-17-2018 End: 06-07-2023 take 20 mEq by mouth once daily Potassium Citrate Disc ontinued 20 MEQ PO DAILY December 17, 2018 9:54am June 07, 2023 10:03am Start: 05-18-2016 End: 12-17-2018 Potassium Citrate 15 MEQ tab let extended release Discontinued 20 meq PO TWICE A DAY May 18, 2016 12:00am December 17, 2018 9:56am Start: 05-18-2016 End: 12-17-2018 take 20 mEq by mouth twice daily Potassium Citrate Discontinued 20 MEQ PO TWICE A DAY May 18, 2016 12:00am December 17, 2018 9:56am pravastatin sodium 20 mg oral tablet (20 sources) HMG-CoA Reductase Inhibitor Start: 02-13-2017 End: 12-17-2018 take 1 tablet by mouth at bedtime Pravastatin (Pravachol) 20 mg tablet Discontinued 20 mg PO AT BEDTIME February 13, 2017 1:00am December 17, 2018 9:53am End: 04-18-2023 take 1 tablet by mouth once daily in the evening pravastatin (PRAVACHOL) 80 mg tablet Take 80 mg by mouth every evening. 0 04/18/2023 Discontinued Comment on above: Take 80 mg by mouth every evening. predniSONE 20 mg oral tablet (20 sources) Start: 12-29-2023 End: 01-03-2024 take 1 tablet by mouth twice daily Prednisone 20 mg tablet Discontinued 20 mg PO TWICE A DAY 11 23December 29, 2023 1:00am January 02, 2024 1:00am January 03, 2024 1:10am Start: 04-23-2021 Prednisone Act veronica 10 MG PO .COMPLEX April 23, 2021 11:52am Take 4 pills for 3 days, 3 pills for 3 days, 2 pills for 3 days, take 1 pill for 3 days Start: 01-30-2018 End: 04-29-2018 Prednisone 10 mg tablet Disc ontinued 10 mg PO daily January 30, 2018 1:00am April 29, 2018 10:32am take 4 tabs for three days, then 3 tabs for three days, then 2 tabs for three days, then 1 tab for 3 days pregabalin 75 mg oral capsule (1 source) End: 04-18-2023 take 1 capsule by mouth once daily in the morning pregabalin (LYRICA) 75 mg capsule Take 75 mg by mouth every morning. 0 04/18/2023 Discontinued Comment on above: Take 75 mg by mouth every morning. sertraline 50 mg oral tablet (20 sources) Serotonin Reuptake Inhibitor Start: 05-18-2016 End: 04-29-2018 take 1 tablet by mouth once daily Sertraline 50 MG tablet Discontinued 50 mg PO DAILY May 18, 2016 12:00am April 29, 2018 10:38am Tiotropium [place] (20 sources) Anticholinergic Start: 02-13-2018 End: 04-29-2018 take 2.5 ug by inhalation once daily Tiotropium [place] (Spiriva Respimat) 2.5 mcg/actuation mist Discontinued 2 NMA INHALATION daily February 13, 2018 2:50pm April 29, 2018 11:01am administer at approximately the same time(s) each day Start: 02-13-2018 End: 04-29-2018 take 1 puff(s) by inhalation once daily Tiotropium [place] (Spiriva Respimat) 2.5 mcg/actuation mist Discontinued 2 PUFF INHALATION daily February 13, 2018 1:50pm April 29, 2018 10:01am administer at approximately the same time(s) each day Start: 02-13-2018 End: 04-29-2018 take 1 puff(s) by inhalation once daily Tiotropium [place] (Spiriva Respimat) 2.5 mcg/actuation mist Discontinued 2 PUFF INHALATION daily February 13, 2018 2:50pm April 29, 2018 11:01am administer at approximately the same time(s) each day Start: 06-29-2017 End: 02-13-2018 take 2.5 ug by inhalation once daily Tiotropium [place] (Spiriva Respimat) 2.5 mcg/actuation mist Discontinued 2 NMA INHALATION daily June 29, 2017 1:43pm February 13, 2018 2:50pm administer at approximately the same time(s) each day Start: 06-29-2017 End: 02-13-2018 take 1 puff(s) by inhalation once daily Tiotropium [place] (Spiriva Respimat) 2.5 mcg/actuation mist Discontinued 2 PUFF INHALATION daily June 29, 2017 12:43pm February 13, 2018 1:50pm administer at approximately the same time(s) each day Start: 06-29-2017 End: 02-13-2018 take 1 puff(s) by inhalation once daily Tiotropium [place] (Spiriva Respimat) 2.5 mcg/actuation mist Discontinued 2 PUFF INHALATION daily June 29, 2017 1:43pm February 13, 2018 2:50pm administer at approximately the same time(s) each day Start: 03-12-2017 End: 06-29-2017 take 1 puff(s) by inhalation once daily Tiotropium [place] (Spiriva Respimat) 2.5 mcg/actuation mist Discontinued 2 PUFF INHALATION daily March 12, 2017 1:30pm June 29, 2017 1:44pm administer at approximately the same time(s) each day Start: 03-12-2017 End: 06-29-2017 take 2.5 ug by inhalation once daily Tiotropium [place] (Spiriva Respimat) 2.5 mcg/actuation mist Discontinued 2 NMA INHALATION daily March 12, 2017 1:00am June 29, 2017 1:44pm administer at approximately the same time(s) each day Start: 03-12-2017 End: 06-29-2017 take 1 puff(s) by inhalation once daily Tiotropium [place] (Spiriva Respimat) 2.5 mcg/actuation mist Discontinued 2 PUFF INHALATION daily March 12, 2017 12:00am June 29, 2017 12:44pm administer at approximately the same time(s) each day Start: 03-12-2017 End: 06-29-2017 take 1 puff(s) by inhalation once daily Tiotropium [place] (Spiriva Respimat) 2.5 mcg/actuation mist Discontinued 2 PUFF INHALATION daily March 12, 2017 1:00am June 29, 2017 1:44pm administer at approximately the same time(s) each day 24 hr tofacitinib 11 mg extended release oral tablet (20 sources) Start: 07-02-2020 End: 12-10-2020 take 1 tablet by mouth once daily Tofacitinib (Xeljanz Xr) 11 mg tablet extended release 24 hr Discontinued 11 mg PO DAILY July 02, 2020 12:00am December 10, 2020 10:32am triamcinolone acetonide 40 mg/ml injectable suspension (3 sources) Corticosteroid Start: 01-30-2018 End: 01-30-2018 inject 60 mg by intramuscular injection once Kenalog (triamcinolone acetonide) 40 mg/mL suspension for injection Discontinued 60 MG IM ONCE 1.5 January 30, 2018 9:13am January 30, 2018 10:02am varenicline 1 mg oral tablet (20 sources) Partial Cholinergic Nicotinic Agonist Start: 12-04-2018 End: 07-02-2020 take 1 tablet by mouth twice daily, then take 1 tablet by mouth once Varenicline Tartrate (Chantix Continuing Month Box) 1 mg tablet Discontinued 1 mg PO TWICE A DAY 56 December 04, 2018 12:00am July 02, 2020 8:37am Start: 11-04-2018 End: 12-04-2018 take 1 tablet by mouth once Varenicline Tartrate ([place] tix Starting Month Box) 0.5 mg (11)- 1 mg (42) tablets,dose pack Discontinued 0 PO per package directions 53 November 04, 2018 12:00am December 04, 2018 4:13pm PO PER PKG DIR Problems Active Problems Problem Classification Problem Date Documented Date Episodic/Chronic Abdominal pain (20 sources) Right upper quadrant pain; Translations: [Right upper quadrant pain] Onset: 3 04-18-2023 Episodic Acute bronchitis (20 sources) Acute bronchitis; Translations: [Acute bronchitis, unspecified] 08-03-2022 Episodic Cardiac dysrhythmias (8 sources) Irregular heart beat; Translations: [Cardiac arrhythmia, unspecified] Onset: 5 05-19-2024 Chronic Cardiac dysrhythmias (1 source) Palpitations; Translations: [Palpitations] Onset: 5 Episodic Chronic obstructive pulmonary disease and bronchiectasis (20 sources) Chronic obstructive lung disease; Translations: [Chronic obstructive pulmonary disease, unspecified] Onset: 5 Chronic Comment on above: FEV1 65% FEV1 69% of predicte d Chronic obstructive pulmonary disease and bronchiectasis (20 sources) Bronchitis; Translations: [Bronchitis, not specified as acute or chronic] 01-30-2018 Episodic Conditions associated with dizziness or vertigo (2 sources) Benign paroxysmal vertigo, unspecified ear; Translations: [Dizziness and giddiness] Onset: 5 Episodic Disorders of lipid metabolism (20 sources) Hyperlipidemia; Translations: [Hyperlipidemia, unspecified] Onset: 5 06-06-2017 Chronic Esophageal disorders (20 sources) Gastroesophageal reflux disease; Translations: [Gastro-esophageal reflux disease without esophagitis] Onset: 5 06-06-2017 Chronic Comment on above: CONTROLLED WITH MEDS Immunity disorders (20 sources) Patient immunocompromised; Translations: [Immunodeficiency, unspecified] 06-27-2021 Chronic Immunizations and screening for infectious disease (20 sources) Patient encounter status; Translations: [Encounter for screening for COVID-19] 06-01-2020 Episodic Mood disorders (20 sources) Depressive disorder; Translations: [Depression] 06-06-2017 Chronic Nausea and vomiting (12 sources) Nausea; Translations: [Nausea] Onset: 4 04-18-2023 Episodic Other acquired deformities (6 sources) Spondylolisthesis L5/S1 level; Translations: [Spondylolisthesis, lumbosacral region] 04-01-2024 Episodic Other bone disease and musculoskeletal deformities (20 sources) Segmental and somatic dysfunction; Translations: [Segmental and somatic dysfunction of lumbar region] 06-06-2017 Episodic Other connective tissue disease (20 sources) Triggering of digit; Translations: [Trigger finger, left middle finger] 07-02-2020 Episodic Other connective tissue disease (20 sources) Spontaneous rupture of extensor tendons; Translations: [Spontaneous rupture of extensor tendons, right forearm] 06-06-2017 Episodic Other connective tissue disease (20 sources) Disorder of rotator cuff; Translations: [Unspecified rotator cuff tear or rupture of unspecified shoulder, not specified as traumatic] 06-06-2017 Episodic Other connective tissue disease (20 sources) Biceps tendinitis; Translations: [Bicipital tendinitis, right shoulder] 06-06-2017 Episodic Other connective tissue disease (20 sources) Muscle weakness of limb; Translations: [Other symptoms and signs involving the musculoskeletal system] 06-06-2017 Episodic Other connective tissue disease (16 sources) Bursitis of shoulder; Translations: [Bursitis of right shoulder] 06-06-2017 Episodic Other connective tissue disease (13 sources) Bursitis of right shoulder; Translations: [Bursitis of right shoulder] 06-06-2017 Episodic Other disorders of stomach and duodenum (1 source) Gastroparesis; Translations: [Gastroparesis] Onset: 5 Episodic Other liver diseases (11 sources) Chronic nonalcoholic liver disease; Translations: [Other specified diseases of liver] 12-23-2007 Chronic Other liver diseases (14 sources) Steatosis of liver; Translations: [Fatty (change of) liver, not elsewhere classified] 05-07-2023 Chronic Other liver diseases (9 sources) Fatty (change of) liver, not elsewhere classified; Translations: [Nonalcoholic fatty liver disease] Onset: 5 08-28-2023 Chronic Other lower respiratory disease (20 sources) Dyspnea; Translations: [Shortness of breath] 04-26-2021 Episodic Other lower respiratory disease (20 sources) Cough; Translations: [Cough] 04-26-2021 Episodic Other lower respiratory disease (1 source) Shortness of breath; Translations: [Shortness of breath] Onset: 5 Episodic Other nervous system disorders (1 source) Other chronic pain; Translations: [Chronic RUQ pain] Onset: 4 Chronic Other nervous system disorders (20 sources) Acute postoperative pain; Translations: [Other acute postprocedural pain] 12-28-2020 Episodic Other nutritional; endocrine; and metabolic disorders (20 sources) Body mass index 30+ - obesity; Translations: [Body mass index (BMI) 34.0-34.9, adult] 04-21-2021 Chronic Other nutritional; endocrine; and metabolic disorders (7 sources) Body mass index (BMI) 34.0-34.9, adult; Translations: [Body Mass Index 34.0-34.9, adult] Chronic Other screening for suspected conditions (not mental disorders or infectious disease) (8 sources) Encounter for screening for malignant neoplasm of colon; Translations: [Special screening for malignant neoplasms of colon] Onset: 4 03-13-2022 Episodic Other upper respiratory disease (20 sources) Allergic rhinitis; Translations: [Allergic rhinitis, unspecified] 03-16-2020 Chronic Other upper respiratory infections (20 sources) Sinusitis; Translations: [Chronic sinusitis, unspecified] Chronic Residual codes; unclassified (20 sources) Obstructive sleep apnea syndrome; Translations: [Obstructive sleep apnea (adult) (pediatric)] 06-06-2017 Chronic Comment on above: CPAP 11 Nasal - DASC O Residual codes; unclassified (10 sources) Obstructive sleep apnea (adult) (pediatric); Translations: [Obstructive sleep apnea (adult)(pediatric)] Chronic Residual codes; unclassified (20 sources) Tobacco user; Translations: [Tobacco use] 11-04-2018 Episodic Residual codes; unclassified (20 sources) Family history of alcoholism; Translations: [Family history of alcohol abuse and dependence] 06-06-2017 Episodic Rheumatoid arthritis and related disease (20 sources) Rheumatoid arthritis; Translations: [Rheumatoid arthritis, unspecified] 09-01-2019 Chronic Spondylosis; intervertebral disc disorders; other back problems (20 sources) Cervical spondylosis; Translations: [Spondylosis without myelopathy or radiculopathy, cervical region] Onset: 4 06-06-2017 Chronic Sprains and strains (20 sources) Strain of muscle of lower limb; Translations: [Strain of unspecified muscle(s) and tendon(s) at lower leg level, left leg, initial encounter] 10-22-2020 Episodic Substance-related disorders (20 sources) Cigarette smoker ; Translations: [Nicotine dependence, cigarettes, uncomplicated] Onset: 5 Chronic Comment on above: Quit smoking April 20 (30+ pack year smoking history) Currently smoking 1 pack/day repeat LDCT ordered for April 2025 Unclassified (2 sources) Fever, unspecified; Translations: [Fever, unspecified] Onset: 9 Unclassified (11 sources) PMH - PAST MEDICAL HISTORY OF 12-23-2007 Unclassified (6 sources) M54.16 - Radiculopathy, lumbar region,M54.12 - Radiculopathy, cervical region Unclassified (1 source) Low back pain, unspecified; Translations: [Low back pain, unspecified] Onset: 5 Unclassified (1 source) Other specified cough; Translations: [Other specified cough] Onset: 5 Unclassified (1 source) Contact with and (suspected) exposure to COVID-19; Translations: [Contact with and (suspected) exposure to COVID-19] Onset: 4 Viral infection (20 sources) Disease caused by 2019-nCoV; Translations: [COVID-19] Episodic Past or Other Problems Problem Classification Problem Date Documented Da te Episodic/Chronic Biliary tract disease (11 sources) Disorder of gallbladder; Translations: [Other specified diseases of gallbladder] Onset: 12-23-2007 12-23-2007 Episodic Gastroduodenal ulcer (except hemorrhage) (11 sources) Acute gastric ulcer; Translations: [Acute gastric ulcer without hemorrhage or perforation] Onset: 01-01-2008 01-01-2008 Episodic Other connective tissue disease (1 source) Pain in right hand; Translations: [Pain in right hand] Onset: 12-05-2023 Episodic Other non-traumatic joint disorders (1 source) Pain in right wrist; Translations: [Pain in right wrist] Onset: 12-13-2023 Episodic Other upper respiratory infections (20 sources) Acute sinusitis, unspecified; Translations: [Acute maxillary sinusitis] Onset: 06-13-2018 06-06-2017 Episodic Residual codes; unclassified (1 source) Pain, unspecified; Translations: [Pain, unspecified] Onset: 05-19-2024 Episodic Spondylosis; intervertebral disc disorders; other back problems (20 sources) Cervical radiculopathy; Translations: [Radiculopathy, cervical region] Onset: 04-01-2024 06-06-2017 Episodic Unclassified (20 sources) h/o trigger finger release 09-17-2021 Comment on above: 06/06/17, R HAND L MT DDLE FINGER Results Test Name Value Interpretation Reference Range Facility [facility] 09-11-2024 [facility] [address] [address] [facility] 09/11/24 1511 MR#: [id number] Acct: [id number] Name: MONICA MALDONADO Rep #: [id number] : 1960 64 From: Lucas Bassett MD Attending Dr: Dr. Lucas Bassett MD Status: RUBEN AARON Ordering Dr: Lucas Bassett MD Date: 09/11/24 Location: [facility] Sex: F C Admitted: Reason For Study Reason For Study: AFIB Procedure This was a 2D Doppler, Color Flow transthoracic echocardiogram. Exam performed in department. Left Ventricle Normal LV size. Left ventricular systolic function is normal. The left ventricular ejection fraction is 70 %. No regional wall motion abnormalities noted. Right Ventricle Normal RV size. Normal systolic function. Atria The left atrium is mildly enlarged. Normal right atrium. Mitral Valve Normal mitral valve. Mild (1+) eccentric mitral valve insufficiency. Tricuspid Valve Normal tricuspid valve. Mild (1+) tricuspid valve insufficiency. Pulmonary artery systolic pressure is 33 mmHg. Aortic Valve Trisinus/trileaflet aortic valve. Mild (1+) aortic valve insufficiency. Pulmonic Valve Normal pulmonic valve. Great Vessels Normal aortic root. The pulmonary artery is normal size. Inferior vena cava collapse with respiration. Pericardium/Pleural No pericardial effusion. MMode/2D Measurements Calculations RVDd: 4.0 cm LAV(MOD-bp): 87.9 ml LVAd ap4: 26.3 cm2 LAV(MOD-bp) Indexed: 41.1 ml/m2 LVLd ap4: 7.2 cm LAV(MOD-sp2): 76.3 ml EDV(MOD-sp4): 80.2 ml LAV(MOD-sp4): 90.4 ml EDV(sp4-el): 81.7 ml LVAs ap4: 11.3 cm2 LVLs ap4: 5.7 cm ESV(MOD-sp4): 20.9 ml ESV(sp4-el): 19.1 ml EF(MOD-sp4): 73.9 % EF(sp4-el): 76.6 % SV(MOD-sp4): 59.3 ml SV(sp4-el): 62.6 ml LA A4 area: 27.6 cm2 SI(MOD-sp4): 27.7 ml/m2 RA A4 area: 14.7 cm2 Time Measurements MV dec time: 0.21 sec Doppler Measurements Calculations MV E max lorena: 101.5 cm/sec Lat Peak E' Lorena: 13.9 cm/sec Med Peak E' Lore[place]: 9.8 cm/sec MV A max lorena: 85.2 cm/sec E/E' lat: 7.3 E/E' med: 10.4 MV E/A: 1.2 MV V2 max: 103.3 cm/sec MV dec slope: 480.0 cm/sec2 Ao V2 max: 165.3 cm/sec MV max P.3 mmHg Ao max P.9 mmHg MV V2 mean: 64.7 cm/sec Ao V2 mean: 112.9 cm/sec MV mean P.9 mmHg Ao mean P.9 mmHg MV V2 VTI: 34.6 cm Ao V2 VTI: 38.0 cm AV (velocity ratio): 0.94 AI max lorena: 480.3 cm/sec LV V1 max: 157.3 cm/sec TR max lorena: 270.1 cm/sec AI max P.3 mmHg LV V1 max P.9 mmHg TR max P.2 mmHg LV V1 mean P.2 mmHg AI dec slope: 337.1 cm/sec2 LV V1 mean: 106.2 cm/sec AI P1/2t: 417.4 msec LV V1 VTI: 35.9 cm ECHO/Echo Complete Interpretation Summary Normal LV size. Left ventricular systolic function is normal. The left ventricular ejection fraction is 70 %. Mild (1+) aortic valve insufficiency. Ordering Physician: Lucas Bassett Referring Physician: Lucas Bassett Performed By: Fatmata Ortiz and Student 09/12/241656 Date Lucas Bassett MD CC: Dr. Summer Funez MD; Dr. Lucas Bassett MD Date Dictated: 09/11/24 1511 Date Transcribed: 09/12/241656 Director Medical Writing: Signed Normal [facility] 12 Lead EKGon 08-26-2024 12 Lead EKG [facility] [address] [place] [address] 12 Lead EKG 08/26/24 0937 MR#: [id number] Acct: [id number] Name: MONICA MALDONADO Rep #: [id number] : 1960 64 From: Lucas Bassett MD Attending Dr: Status: DEP ER Ordering Dr: Jose Antoine MD Date: 08/26/24 Location: ED Sex: F C Admitted: Test Reason : PALPITATIONS Blood Pressure : */* mmHG Vent. Rate : 87 BPM Atrial Rate : * BPM P-R Int : * ms QRS Dur : 80 ms QT Int : 358 ms P-R-T Axes : * 25 51 degrees QTcB Int : 430 ms Atrial fibrillation with premature ventricular or aberrantly conducted complexes Septal infarct , age undetermined Abnormal ECG Confirmed by DANYELLE MARTIN, LUCAS ([id number]), editorial cartoonist ALEX MAGANA ([id number]) on 08/28/2024 6:41:10 AM Referred By: Confirmed By: LUCAS BASSETT MD 08/28/24 0641 Date Lucas Bassett MD CC: Dr. Jose Antoine MD; Dr. Summer Funez MD Signed Normal [facility] Basic Metabolic Profile (BMP )on 08-26-2024 BUN/CRE 16.1 RATIO Normal 10-20 [facility] Comment on above: Performed By: #### L 100.0100, L500.2500 ####[facility] [address] [place], [address] Calcium [Mass/Vol] 9.4 mg/dL Normal 7.6-11.0 [facility] Comment on above: Performed By: #### L 100.0100, L500.2500 ####[facility] [address] [place], [address] Chloride [Moles/Vol] 102 mmol/L Normal 98-108 [facility] Comment on above: Performed By: #### L 100.0100, L500.2500 ####[facility] [address] [place], [address] CO2 [Moles/Vol] 23.0 mmol/L Normal 21.0-32.0 [facility] Comment on above: Performed By: #### L 100.0100, L500.2500 ####[facility] [address] [place], [address] Creatinine [Mass/Vol] 0.86 mg/dL Normal 0.70-1.20 [facility] Comment on above: Performed By: #### L 100.0100, L500.2500 ####[facility] [address] [place], [address] ECRCL 82.14 ml/min Normal 50-250 [facility] Comment on above: Performed By: #### L 100.0100, L500.2500 ####[facility] [address] [place], [address] GAP 11 Normal 5-15 [facility] Comment on above: Performed By: #### L 100.0100, L500.2500 ####[facility] [address] [place], [address] GFR/1.73 sq M.predicted among non-blacks MDRD (S/P/Bld) [Vol rate/Area] 76 mL/min/{1.73_m2} Normal >60 [facility] Comment on above: Result Comment: mL/m in/1.73m2 CKD-EPI Creatinine Equation (2020) Performed By: #### L 100.0100, L500.2500 ####[facility] [address] [place], [address] Glucose [Mass/Vol] 109 mg/dL High 70-99 [facility] Comment on above: Performed By: #### L 100.0100, L500.2500 ####[facility] [address] [place], [address] Potassium [Moles/Vol] 4.0 mmol/L Normal 3.3-5.1 [facility] Comment on above: Performed By: #### L 100.0100, L500.2500 ####[facility] [address] [place], [address] Sodium [Moles/Vol] 137 mmol/L Normal 133-145 [facility] Comment on above: Performed By: #### L 100.0100, L500.2500 ####[facility] [address] [place], [address] Urea nitrogen [Mass/Vol] 14 mg/dL Normal 4-19 [facility] Comment on above: Performed By: #### L 100.0100, L500.2500 ####[facility] [address] [place], [address] CBC W/Diff, Automatedon 07-0 8-2025 Absolute Lymph 2.02 X10 3/uL Normal 0.83-4.51 [facility] Comment on above: Performed By: #### L 100.0100, L500.2500 ####[facility] [address] [place], [address] Absolute Neut 5.0 X10 3/uL Normal 2.0-7.7 [facility] Comment on above: Performed By: #### L 100.0100, L500.2500 ####[facility] [address] [place], [address] Basophils/100 WBC (Bld) 0.3 % Normal 0-1 [facility] Comment on above: Performed By: #### L 100.0100, L500.2500 ####[facility] [address] [place], [address] Eosinophils/100 WBC (Bld) 0.3 % Normal 0-5 [facility] Comment on above: Performed By: #### L 100.0100, L500.2500 ####[facility] [address] [place], [address] Erythrocyte distribution width (RBC) [Ratio] 12.9 % Normal 11.6-14.6 [facility] Comment on above: Performed By: #### L 100.0100, L500.2500 ####[facility] [address] [place], [address] Hematocrit (Bld) [Volume fraction] 44.7 % Normal 37-47 [facility] Comment on above: Performed By: #### L 100.0100, L500.2500 ####[facility] [address] [place], [address] Hemoglobin (Bld) [Mass/Vol] 15.5 g/dL High 12.0-15.0 [facility] Comment on above: Performed By: #### L 100.0100, L500.2500 ####[facility] [address] [place], [address] IG% 0.400 Normal 0.0-0.9 [facility] Comment on above: Result Comment: IG% - Immature Granulocytes (promyelocytes, myelocytes and metamyelocytes) > 1% indicates that a LEFT SHIFT is Present. Performed By: #### L 100.0100, L500.2500 ####[facility] [address] [place], [address] Lymphocytes/100 WBC (Bld) 26.1 % Normal 19-41 [facility] Comment on above: Performed By: #### L 100.0100, L500.2500 ####[facility] [address] [place], [address] MCH (RBC) [Entitic mass] 31.8 pg Normal 27.0-32.0 [facility] Comment on above: Performed By: #### L 100.0100, L500.2500 ####[facility] [address] [place], [address] MCHC (RBC) [Mass/Vol] 34.7 g/dL Normal 32-36 [facility] Comment on above: Performed By: #### L 100.0100, L500.2500 ####[facility] [address] [place], [address] MCV (RBC) [Entitic vol] 91.8 fL Normal 81-99 [facility] Comment on above: Performed By: #### L 100.0100, L500.2500 ####[facility] [address] [place], [address] Monocytes/100 WBC (Bld) 8.3 % Normal 0-10 [facility] Comment on above: Performed By: #### L 100.0100, L500.2500 ####[facility] [address] [place], [address] Neutrophils/100 WBC (Bld) 64.6 % Normal 47-70 [facility] Comment on above: Performed By: #### L 100.0100, L500.2500 ####[facility] [address] [place], [address] Nucleated RBC (Bld) [#/Vol] 0 10*3/uL Normal 0-5 [facility] Comment on above: Performed By: #### L 100.0100, L500.2500 ####[facility] [address] [place], [address] Platelet mean volume (Bld) [Entitic vol] 9.1 fL Normal 6.2-12.0 [facility] Comment on above: Performed By: #### L 100.0100, L500.2500 ####[facility] [address] [place], [address] Platelets (Bld) [#/Vol] 272 10*3/uL Normal 150-450 [facility] Comment on above: Performed By: #### L 100.0100, L500.2500 ####[facility] [address] [place], [address] RBC (Bld) [#/Vol] 4.87 10*6/uL Normal 4.2-5.4 [facility] Comment on above: Performed By: #### L 100.0100, L500.2500 ####[facility] [address] [place], [address] RDW SD 43.8 fl Normal 35.1-43.9 [facility] Comment on above: Performed By: #### L 100.0100, L500.2500 ####[facility] [address] [place], [address] WBC (Bld) [#/Vol] 7.7 10*3/uL Normal 4.4-11.0 [facility] Comment on above: Performed By: #### L 100.0100, L500.2500 ####[facility] [address] [place], [address] Chest 1 View (Portable)on Chest 1 View (Portable) [facility] Imaging Services [address] [place] [address] Chest 1 View (Portable) MR#: [id number] Acct: [id number] Name: MONICA MALDONADO Rep #: [id number] : 1960 F 64 From: Trung Singh PCP: Dr. Summer Funez MD Status: PRE ER Study: Chest 1 View (Portable) Date of Exam: 08/26/24 Exam# [id number] Ordering Dr: Jose Antoine MD PROCEDURE: CHEST 1 VIEW (PORTABLE) 08/26/2024 REASON FOR EXAM: SHORTNESS OF BREATH TECHNIQUE: Frontal view of the chest. COMPARISON: Chest x-ray of 01/25/2024. RAD/Chest 1 View (Portable) IMPRESSION: Examination somewhat limited by obliquity of the chest. No evidence of pulmonary edema. Lungs appear clear. The cardiomediastinal silhouette is stable, given differences in obliquity, without evidence of cardiomegaly. No pleural effusion or pneumothorax is noted. No acute osseous change is seen. Degenerative changes and scoliosis of the thoracic spine are again noted. Reading Location: [address] CC: Dr. Jose Antoine MD; Dr. Summer Funez MD Director Medical Writing: Signed Normal [facility] Emergency Department Summary on 08-26-2024 Emergency Department Summary [facility] Medical Records Department [address] [place] [address] Emergency Department Summary 08/26/24 MR#: [id number] Acct: [id number] Name: MONICA MALDONADO Rep #: [id number] : 1960 64 From: Jose Antoine MD PCP: Dr. Summer Funez MD Status:REG ER Location: ED HPI History of Present Illness Chief Complaint: Palpitations Narrative Narrative: 54-year-old female past medical history of atrial fibrillation, on Eliquis and metoprolol presents with dizziness and lightheadedness and palpitations that began yesterday evening. She states that yesterday evening she had decreased appetite, and did not feel quite well. She denies any recent fevers or chills. She may have been slightly nauseated as well. This morning when she awoke, her symptoms worsened with increasing lightheadedness and dizziness. She states that she checked her heart rate and it ranged from low to as high as 130 bpm. She feels like she might be in atrial fibrillation again. She states she is post have an echocardiogram performed on the , approximately 3 weeks from now. 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 Bassett, who states that before any medication adjustment, he wanted to see an echocardiogram. She presents because she stated to triage that she thinks she may be in atrial fibrillation again. No previous cardioversions. [facility] Medical History Chest pain Afib Dyspepsia Metabolic dysfunction-associated steatotic liver disease (MASLD) Lumbar radiculopathy Irregular heart rhythm Adult BMI 34.0-34.9 kg/sq m 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 classification Body mass index [BMI] 40.0-44.9, adult Insomnia, unspecified Overactive bladder Hyperglycemia, unspecified Dizziness Tremor, unspecified Benign paroxysmal positional vertigo Dysuria Anxiety Kidney stone High cholesterol Restless legs History of hiatal hernia CPAP (continuous positive airway pressure) dependence Sleep apnea Shortness of breath on exertion Depression Hyperlipidemia GERD (gastroesophageal reflux disease) COPD (chronic obstructive pulmonary disease) Cervicalgia Cervical radiculopathy Rotator cuff syndrome Segmental and somatic dysfunction of thoracic region Bursitis of right shoulder Bicipital tendinitis of right shoulder Family history of alcoholism TAMRA (obstructive sleep apnea) Rheumatoid arthritis Spontaneous rupture of extensor tendons, right forearm Segmental and somatic dysfunction of lumbar region Home Medications ???Medication ???Instructions ???Recorded ???Last Taken ???Type omeprazole 40 mg capsule,delayed 40 mg PO DAILY 05/18/16 04/07/24 H istory release albuterol sulfate 2.5 mg/3 mL 2.5 mg (3 mL) inhalation Q6H PRN 0 04/26/21 Unknown Rx (0.083 %) solution for nebulization Wheezing #180 mL cholecalciferol (vitamin D3) 25 25 mcg PO DAILY 05/09/23 04/06/24 History mcg (1,000 unit) capsule Held on 07/31/23. Instructions: HOLDS FOR SUMMER, RESTARTS IN FALL hydroxychloroquine 200 mg tablet 200 mg PO BID 05/09/23 04/06/24 Hi story (Plaquenil) magnesium 250 mg tablet 250 mg PO DAILY 05/09/23 04/06/24 History trazodone 50 mg tablet 50 mg PO QHS 05/09/23 04/06/24 His tory albuterol sulfate 90 mcg/actuation 1 - 2 puff inhalation Q6H PRN MN N 08/30/23 04/07/24 Rx aerosol inhaler Sob /Or Wheezing #18 grams mecobalamin (vitamin B12) 5,000 mcg PO 04/01/24 04/06/24 History mcg disintegrating tablet fluticasone fur. 100 mcg-umeclid 1 inh inhalation DAILY #3 ea 05/12 Unknown Rx 62.5 mcg-vilant 25 mcg inhalat.powder (Trelegy Ellipta) abatacept 125 mg/mL subcutaneous 125 mg subcut QWEEK 05/19/24 Unkno wn History auto-injector (Orencia ClickJect) fluoxetine 40 mg capsule 40 mg PO QDAY 05/19/24 Unknown His tory sulfasalazine 500 mg 0.5 g PO BID 05/19/24 Unknown Hist ory tablet,delayed release acetaminophen 325 mg tablet 325 mg PO Q6H PRN 05/29/24 Unknown History (Tylenol) ibuprofen 200 mg tablet 200 mg PO Q6H PRN 05/29/24 Unknown History furosemide 20 mg tablet 20 mg PO BID PRN 06/23/24 Unknown History gabapentin 300 mg capsule 300 mg PO TID 06/23/24 Unknown His tory paroxetine HCl 20 mg tablet 20 mg PO QDAY 06/23/24 Unknown His tory metoprolol tartrate 25 mg tablet 25 mg PO BID 08/06/24 Unknown Hist ory mirabegron 50 mg tablet,extended 50 mg PO QDAY 08/06/24 Unknown His tory release 24 hr potassium chloride 20 mEq 20 meq PO QDAY PRN 08/06/24 Unknow n History tablet,extended release(part/cryst) rosuvastatin 10 mg tablet 10 mg PO QHS 08/06/24 Unknown Hist ory Allergy/AdvReac Type Severity Reaction Status Date / Time adalimumab (From Humira) Allergy Rash Verified 08/26/24 09:27 Penicillins Allergy Rash Verified 08/26/24 09:27 adhesive A (more 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 Normal [facility] Cardiology Visit Reporton Cardiology Visit Report [facility] [address] [place] [address] OFFICE VISIT Date of Service: 08/06/24 MR#: [id number] Acct: [id number] Name: MONICA MALDONADO Rep #: [id number] : 1960 Provider: Dr. Lucas Bassett MD Age/Sex: 64/F [place] [facility] Status: Signed HPI HPI History of Present Illness Details: 64-year-old lady with no previous cardiac history but a history of obstructive lung disease who said that she went to visit her supervisor filtration and was told that she was in atrial fibrillation unbeknownst to her. She (so you in the office and a Holter monitor was done which we do not have but it did demonstrate some atrial fibrillation. She was put on metoprolol as well as Eliquis which she has been compliant with. Previous EKGs when she has been to the emergency room 2 or 3 years ago demonstrated sinus rhythm. She has felt no palpitations no paroxysmal nocturnal dyspnea or pedal edema. She has been compliant with her medications her physical exam is unremarkable her electrocardiogram demonstrates sinus bradycardia with a rate of 59 bpm and no acute changes are noted. Unfortunately I do not have the results of the Holter monitor at this particular time. 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 Accompanied by: Self Is patient in pain?: No Allergies adalimumab (From Dwolla) Allergy (Verified 08/06/24 10:23) Rash Penicillins Allergy (Verified 08/06/24 10:23) Rash adhesive Adverse Reaction (Verified 08/06/24 10:23) Rash tramadol Adverse Reaction (Verified 08/06/24 10:23) FEELING OF CONFUSION Medications ???Medication ???Instructions ???Recorded ???Confirmed ???Type omeprazole 40 mg capsule,delayed 40 mg PO DAILY 05/18/16 08/06/24 H istory release albuterol sulfate 2.5 mg/3 mL 2.5 mg (3 mL) inhalation Q6H PRN 0 04/26/21 08/06/24 Rx (0.083 %) solution for nebulization Wheezing #180 mL cholecalciferol (vitamin D3) 25 25 mcg PO DAILY 05/09/23 08/06/24 History mcg (1,000 unit) capsule Held on 07/31/23. Instructions: HOLDS FOR SUMMER, RESTARTS IN FALL hydroxychloroquine 200 mg tablet 200 mg PO BID 05/09/23 08/06/24 Hi story (Plaquenil) magnesium 250 mg tablet 250 mg PO DAILY 05/09/23 08/06/24 History trazodone 50 mg tablet 50 mg PO QHS 05/09/23 08/06/24 His tory albuterol sulfate 90 mcg/actuation 1 - 2 puff inhalation Q6H PRN MN N 08/30/23 08/06/24 Rx aerosol inhaler Sob /Or Wheezing #18 grams mecobalamin (vitamin B12) 5,000 mcg PO 04/01/24 08/06/24 History mcg disintegrating tablet fluticasone fur. 100 mcg-umeclid 1 inh inhalation DAILY #3 ea 05/1208/06/24 Rx 62.5 mcg-vilant 25 mcg inhalat.powder (Trelegy Ellipta) abatacept 125 mg/mL subcutaneous 125 mg subcut QWEEK 05/19/2408/06 History auto-injector (Orencia ClickJect) fluoxetine 40 mg capsule 40 mg PO QDAY 05/19/24 08/06/24 Hi story sulfasalazine 500 mg 0.5 g PO BID 05/19/24 08/06/24 His tory tablet,delayed release acetaminophen 325 mg tablet 325 mg PO Q6H PRN 05/29/24 5 History (Tylenol) ibuprofen 200 mg tablet 200 mg PO Q6H PRN 05/29/24 5 History furosemide 20 mg tablet 20 mg PO BID PRN 06/23/24 08/06/24 History gabapentin 300 mg capsule 300 mg PO TID 06/23/24 08/06/24 Hi story paroxetine HCl 20 mg tablet 20 mg PO QDAY 06/23/24 08/06/24 Hi story metoprolol tartrate 25 mg tablet 25 mg PO BID 08/06/24 08/06/24 His tory mirabegron 50 mg tablet,extended 50 mg PO QDAY 08/06/24 08/06/24 Hi story release 24 hr potassium chloride 20 mEq 20 meq PO QDAY PRN 08/06/24 History tablet,extended release(part/cryst) rosuvastatin 10 mg tablet 10 mg PO QHS 08/06/24 08/06/24 His tory PFSH Medical History Chest pain Afib Dyspepsia Metabolic dysfunction-associated steatotic liver disease (MASLD) Lumbar radiculopathy Irregular heart rhythm Adult BMI 34.0-34.9 kg/sq m 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 classification Body mass index [BMI] 40.0-44.9, adult Insomnia, unspecified Overactive bladder Hyperglycemia, unspecified Dizziness Tremor, unspecified Benign paroxysmal positional vertigo Dysuria Anxiety Kidney stone High cholesterol Restless legs History of hiatal hernia CPAP (continuous positive airway pressure) dependence Sleep apnea Shortness of breath on exertion Depression (more 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 Normal [facility] CBC W/Diff, Automatedon 06-19 Absolute Lymph 2.02 X10 3/uL Normal 0.83-4.51 [facility] Comment on above: Order Comment: Order Date: 07/03/24 Order Info: 018- - CBCD Performed By: #### L 500.4050, L100.0100 #### [facility] [address] [place], [address] Absolute Neut 3.8 X10 3/uL Normal 2.0-7.7 [facility] Comment on above: Order Comment: Order Date: 07/03/24 Order Info: 018- - CBCD Performed By: #### L 500.4050, L100.0100 #### [facility] [address] [place], [address] Basophils/100 WBC (Bld) 0.3 % Normal 0-1 [facility] Comment on above: Order Comment: Order Date: 07/03/24 Order Info: 0184- - CBCD Performed By: #### L 500.4050, L100.0100 #### [facility] [address] [place], [address] Eosinophils/100 WBC (Bld) 0.9 % Normal 0-5 [facility] Comment on above: Order Comment: Order Date: 07/03/24 Order Info: 0184-1 - CBCD Performed By: #### L 500.4050, L100.0100 #### [facility] [address] [place], [address] Erythrocyte distribution width (RBC) [Ratio] 13.0 % Normal 11.6-14.6 [facility] Comment on above: Order Comment: Order Date: 07/03/24 Order Info: 0184-1 - CBCD Performed By: #### L 500.4050, L100.0100 #### [facility] [address] [place], [address] Hematocrit (Bld) [Volume fraction] 40.2 % Normal 37-47 [facility] Comment on above: Order Comment: Order Date: 07/03/24 Order Info: 0184- - CBCD Performed By: #### L 500.4050, L100.0100 #### [facility] [address] [place], [address] Hemoglobin (Bld) [Mass/Vol] 13.5 g/dL Normal 12.0-15.0 [facility] Comment on above: Order Comment: Order Date: 07/03/24 Order Info: 0184- - CBCD Performed By: #### L 500.4050, L100.0100 #### [facility] [address] [place], [address] IG% 0.300 Normal 0.0-0.9 [facility] Comment on above: Order Comment: Order Date: 07/03/24 Order Info: 0184-1 - CBCD Result Comment: IG% - Immature Granulocytes (promyelocytes, myelocytes and metamyelocytes) > 1% indicates that a LEFT SHIFT is Present. Performed By: #### L 500.4050, L100.0100 #### [facility] [address] [place], [address] Lymphocytes/100 WBC (Bld) 31.3 % Normal 19-41 [facility] Comment on above: Order Comment: Order Date: 07/03/24 Order Info: 0184-1 - CBCD Performed By: #### L 500.4050, L100.0100 #### [facility] [address] [place], [address] MCH (RBC) [Entitic mass] 31.8 pg Normal 27.0-32.0 [facility] Comment on above: Order Comment: Order Date: 07/03/24 Order Info: 0184-1 - CBCD Performed By: #### L 500.4050, L100.0100 #### [facility] [address] [place], [address] MCHC (RBC) [Mass/Vol] 33.6 g/dL Normal 32-36 [facility] Comment on above: Order Comment: Order Date: 07/03/24 Order Info: 0184-1 - CBCD Performed By: #### L 500.4050, L100.0100 #### [facility] [address] [place], [address] MCV (RBC) [Entitic vol] 94.6 fL Normal 81-99 [facility] Comment on above: Order Comment: Order Date: 07/03/24 Order Info: 0184-1 - CBCD Performed By: #### L 500.4050, L100.0100 #### [facility] [address] [place], [address] Monocytes/100 WBC (Bld) 8.7 % Normal 0-10 [facility] Comment on above: Order Comment: Order Date: 07/03/24 Order Info: 0184-1 - CBCD Performed By: #### L 500.4050, L100.0100 #### [facility] [address] [place], [address] Neutrophils/100 WBC (Bld) 58.5 % Normal 47-70 [facility] Comment on above: Order Comment: Order Date: 07/03/24 Order Info: 0184-1 - CBCD Performed By: #### L 500.4050, L100.0100 #### [facility] [address] [place], [address] Nucleated RBC (Bld) [#/Vol] 0 10*3/uL Normal 0-5 [facility] Comment on above: Order Comment: Order Date: 07/03/24 Order Info: 0184-1 - CBCD Performed By: #### L 500.4050, L100.0100 #### [facility] [address] [place], [address] Platelet mean volume (Bld) [Entitic vol] 9.5 fL Normal 6.2-12.0 [facility] Comment on above: Order Comment: Order Date: 07/03/24 Order Info: 0184-1 - CBCD Performed By: #### L 500.4050, L100.0100 #### [facility] [address] [place], [address] Platelets (Bld) [#/Vol] 254 10*3/uL Normal 150-450 [facility] Comment on above: Order Comment: Order Date: 07/03/24 Order Info: 0184-1 - CBCD Performed By: #### L 500.4050, L100.0100 #### [facility] [address] [place], [address] RBC (Bld) [#/Vol] 4.25 10*6/uL Normal 4.2-5.4 [facility] Comment on above: Order Comment: Order Date: 07/03/24 Order Info: 0184-1 - CBCD Performed By: #### L 500.4050, L100.0100 #### [facility] [address] [place], [address] RDW SD 45.2 fl High 35.1-43.9 [facility] Comment on above: Order Comment: Order Date: 07/03/24 Order Info: 0184-1 - CBCD Performed By: #### L 500.4050, L100.0100 #### [facility] [address] [place], [address] WBC (Bld) [#/Vol] 6.5 10*3/uL Normal 4.4-11.0 [facility] Comment on above: Order Comment: Order Date: 07/03/24 Order Info: 0184-1 - CBCD Performed By: #### L 500.4050, L100.0100 #### [facility] [address] [place], [address] Comprehensive Metabolic Prof ilon 07-03-2024 Albumin [Mass/Vol] 4.0 g/dL Normal 3.4-4.8 [facility] Comment on above: Order Comment: Order Date: 07/03/24 Order Info: 0786-1 - CMP Performed By: #### L 500.4050, L100.0100 #### [facility] [address] [place], [address] Albumin/Globulin [Mass ratio] 1.8 {ratio} Normal 0.9-2.4 [facility] Comment on above: Order Comment: Order Date: 07/03/24 Order Info: 0786-1 - CMP Performed By: #### L 500.4050, L100.0100 #### [facility] [address] [place], [address] ALK PHOS 69 U/L Normal 35-104 [facility] Comment on above: Order Comment: Order Date: 07/03/24 Order Info: 0786-1 - CMP Performed By: #### L 500.4050, L100.0100 #### [facility] [address] [place], [address] ALT [Catalytic activity/Vol] 20 U/L Normal <=34 [facility] Comment on above: Order Comment: Order Date: 07/03/24 Order Info: 0786-1 - CMP Performed By: #### L 500.4050, L100.0100 #### [facility] [address] [place], [address] AST [Catalytic activity/Vol] 25 U/L Normal <=31 [facility] Comment on above: Order Comment: Order Date: 07/03/24 Order Info: 0786-1 - CMP Performed By: #### L 500.4050, L100.0100 #### [facility] [address] [place], [address] Bilirubin [Mass/Vol] 0.25 mg/dL Normal 0.00-1.30 [facility] Comment on above: Order Comment: Order Date: 07/03/24 Order Info: 0786-1 - CMP Performed By: #### L 500.4050, L100.0100 #### [facility] [address] [place], [address] BUN/CRE 15.8 RATIO Normal 10-20 [facility] Comment on above: Order Comment: Order Date: 07/03/24 Order Info: 0786-1 - CMP Performed By: #### L 500.4050, L100.0100 #### [facility] [address] [place], [address] Calcium [Mass/Vol] 9.3 mg/dL Normal 7.6-11.0 [facility] Comment on above: Order Comment: Order Date: 07/03/24 Order Info: 0786-1 - CMP Performed By: #### L 500.4050, L100.0100 #### [facility] [address] [place], [address] Chloride [Moles/Vol] 105 mmol/L Normal 98-108 [facility] Comment on above: Order Comment: Order Date: 07/03/24 Order Info: 0786-1 - CMP Performed By: #### L 500.4050, L100.0100 #### [facility] [address] [place], [address] CO2 [Moles/Vol] 24.1 mmol/L Normal 21.0-32.0 [facility] Comment on above: Order Comment: Order Date: 07/03/24 Order Info: 0786-1 - CMP Performed By: #### L 500.4050, L100.0100 #### [facility] [address] [place], [address] GAP 10 Normal 5-15 [facility] Comment on above: Order Comment: Order Date: 07/03/24 Order Info: 0786-1 - CMP Performed By: #### L 500.4050, L100.0100 #### [facility] [address] [place], [address] GFR/1.73 sq M.predicted among non-blacks MDRD (S/P/Bld) [Vol rate/Area] 82 mL/min/{1.73_m2} Normal >60 [facility] Comment on above: Order Comment: Order Date: 07/03/24 Order Info: 0786-1 - CMP Result Comment: mL/m in/1.73m2 CKD-EPI Creatinine Equation (2020) Performed By: #### L 500.4050, L100.0100 #### [facility] [address] [place], [address] Globulin (S) [Mass/Vol] 2.2 g/dL Normal 2.2-4.2 [facility] Comment on above: Order Comment: Order Date: 07/03/24 Order Info: 0786-1 - CMP Performed By: #### L 500.4050, L100.0100 #### [facility] [address] [place], [address] Potassium [Moles/Vol] 3.7 mmol/L Normal 3.3-5.1 [facility] Comment on above: Order Comment: Order Date: 07/03/24 Order Info: 0786-1 - CMP Performed By: #### L 500.4050, L100.0100 #### [facility] [address] [place], [address] Sodium [Moles/Vol] 139 mmol/L Normal 133-145 [facility] Comment on above: Order Comment: Order Date: 07/03/24 Order Info: 0786-1 - CMP Performed By: #### L 500.4050, L100.0100 #### [facility] [address] [place], [address] T PROT 6.2 g/dL Normal 5.9-8.4 [facility] Comment on above: Order Comment: Order Date: 07/03/24 Order Info: 0786-1 - CMP Performed By: #### L 500.4050, L100.0100 #### [facility] [address] [place], [address] Creatinine [Mass/Vol] 0.81 mg/dL Normal 0.70-1.20 [facility] Comment on above: Order Comment: Order Date: 07/03/24 Order Info: 0786-1 - CMP Performed By: #### L 500.4050, L100.0100 #### [facility] [address] [place], [address] Glucose [Mass/Vol] 96 mg/dL Normal 70-99 [facility] Comment on above: Order Comment: Order Date: 07/03/24 Order Info: 0786-1 - CMP Performed By: #### L 500.4050, L100.0100 #### [facility] [address] [place], [address] Urea nitrogen [Mass/Vol] 13 mg/dL Normal 4-19 [facility] Comment on above: Order Comment: Order Date: 07/03/24 Order Info: 0786-1 - CMP Performed By: #### L 500.4050, L100.0100 #### [facility] [address] [place], [address] L501.4021on 07-03-2024 Trop T High Sen 11 ng/L Normal <=14 [facility] Comment on above: Order Comment: Order Date: 07/03/24Order Info: 0786-1 - CMP Performed By: #### L 501.4021, L503.7505 ####[facility] [address], [address] L503.7505on 07-03-2024 Natriuretic peptide B (Bld) [Mass/Vol] 229 pg/mL Normal <=900 [facility] Comment on above: Order Comment: Order Date: 07/03/24Order Info: 0786-1 - CMP Result Comment: Hear t Failure Unlikely: < 300 pg/mL Heart Failure Likely < 50 Years: > 450 pg/mL 50-75 Years: > 900 pg/mL >75 Years: > 1800 pg/mL Performed By: #### L 501.4028, L503.7505 ####[facility] [address], [address] [facility] Misc.on 05-30-2024 [facility] Misc. COMMENT Normal . [facility] Comment on above: Order Comment: [id number] 9ELF Result Comment: Test Ordered: [id number] Enhanced Liver Fibrosis (ELF) ELF(TM) Score 9.02 Reference Range: <9.80 ELF(TM) Score Interpretation: Risk cut-offs to assess the likelihood of progression to cirrhosis and liver-related clinical events within 3.9 years following baseline ELF score (IQR: 14.0-22.4 months)*: Lower risk < 9.80 Mid risk 9.80 - 11.29 Higher risk >11.29 Note: The ELF(TM) Score is a unitless numerical value. *Deyvi SA, Zurdo VW, Travis T, et al. Selonsertib for patients with bridging fibrosis or compensated cirrhosis due to SAEZ: Results from randomized phase III STELLAR trials. J Hepatol. 2020 Aug;73(1):26-39. Performed at: [facility] [address] [id number] Arborer: Jade Garcia MD, Phone: [phone] Performed at: [facility] [address] [id number] Arborer: Doc Rizzo PhD, Phone: [phone] Performed By: #### L 3410.9998, Q684.4331 ####[facility] [address] [place], [address] Gastroenterology Visit Repor ton 05-29-2024 Gastroenterology Visit Report [facility] [address] [place] [address] OFFICE VISIT Date of Service: 05/29/24 MR#: [id number] Acct: [id number] Name: MONICA MALDONADO Rep #: [id number] : 1960 Provider: Dr. 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 Accompanied by: Self Is patient in pain?: No Allergies adalimumab (From Humira) Allergy (Verified 05/29/24 12:59) Rash Penicillins Allergy (Verified 05/29/24 12:59) Rash adhesive Adverse Reaction (Verified 05/29/24 12:59) Rash tramadol Adverse Reaction (Verified 05/29/24 12:59) FEELING OF CONFUSION Medications ???Medication ???Instructions ???Recorded ???Confirmed ???Type omeprazole 40 mg capsule,delayed 40 mg PO DAILY 05/18/16 05/29/24 H istory release albuterol sulfate 2.5 mg/3 mL 2.5 mg (3 mL) inhalation Q6H PRN 0 04/26/21 05/29/24 Rx (0.083 %) solution for nebulization Wheezing #180 mL cholecalciferol (vitamin D3) 25 25 mcg PO DAILY 05/09/23 05/29/24 History mcg (1,000 unit) capsule Held on 07/31/23. Instructions: HOLDS FOR SUMMER, RESTARTS IN FALL hydroxychloroquine 200 mg tablet 200 mg PO BID 05/09/23 05/29/24 Hi story (Plaquenil) magnesium 250 mg tablet 250 mg PO DAILY 05/09/23 05/29/24 History trazodone 50 mg tablet 50 mg PO QHS 05/09/23 05/29/24 His tory leflunomide 20 mg tablet 20 mg PO DAILY 06/07/23 05/29/24 H istory albuterol sulfate 90 mcg/actuation 1 - 2 puff inhalation Q6H PRN MN N 08/30/23 05/29/24 Rx aerosol inhaler Sob /Or Wheezing #18 grams mecobalamin (vitamin B12) 5,000 mcg PO 04/01/24 05/29/24 History mcg disintegrating tablet fluticasone fur. 100 mcg-umeclid 1 inh inhalation DAILY #3 ea 05/1205/29/24 Rx 62.5 mcg-vilant 25 mcg inhalat.powder (Trelegy Ellipta) abatacept 125 mg/mL subcutaneous 125 mg subcut QWEEK 05/19/2405/29 History auto-injector (Orencia ClickJect) fluoxetine 40 mg capsule 40 mg PO QDAY 05/19/24 05/29/24 Hi story gabapentin 300 mg capsule 300 mg PO TID PRN 05/19/24 5 History mirabegron 50 mg tablet,extended 50 mg PO QDAY 05/19/24 05/29/24 Hi story release 24 hr sulfasalazine 500 mg 0.5 g PO BID 05/19/24 05/29/24 His tory tablet,delayed release acetaminophen 325 mg tablet 325 mg PO Q6H PRN 05/29/24 5 History (Tylenol) ibuprofen 200 mg tablet 200 mg PO Q6H PRN 05/29/24 5 History PFSH Medical History Body mass index [BMI] 40.0-44.9, adult Insomnia, unspecified Congestion of respiratory tract Wheezing Overactive bladder Hypokalemia Nicotine dependence, cigarettes, uncomplicated Hyperglycemia, unspecified Dizziness Nausea with vomiting, unspecified Tremor, unspecified Benign paroxysmal positional vertigo Unspecified abdominal pain Diarrhea Dysuria Wears glasses Anxiety Alcohol use History of steroid therapy Kidney stone High cholesterol Restless legs History of hiatal hernia Smoker CPAP (continuous positive airway pressure) dependence Sleep apnea COPD (chronic obstructive pulmonary disease) Shortness of breath on exertion Chronic cough History of pain when walking History of edema History of stress test Incontinence Depression Limb weakness Tobacco abuse Hyperlipidemia GERD (gastroesophageal reflux disease) Allergic rhinitis COPD (chronic obstructive pulmonary disease) Cervicalgia Cervical radiculopathy Rotator cuff syndrome Segmental and somatic dysfunction of thoracic region Acute maxillary sinusitis Bursitis of right shoulder Bicipital tendinitis of right shoulder Family history of alcoholism TAMRA (obstructive sleep apnea) Rheumatoid arthritis Spontaneous rupture of extensor tendons, right forearm Segmental and somatic dysfunction of lumbar region Surgical History Hx of surgical procedure History of esophagogastroduodenoscopy (EGD) Hx of colonoscopy h/o trigger finger release History of surgery on arm History of laparoscopic cholecystectomy History of appendectomy Family History Mother COPD (chronic obstructive pulmonary disease) Heart disease Osteoarthritis TAMRA (obstructive sleep apnea) Hypertension Father Cancer throat Abuse, drug or alcohol Brother Dec (more 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 Normal [facility] TSH DL <= 0.005 mIU/L QnOrde red By: Heather Hall on 05-27-2024 Thyroid Stimulating Hormone (TSH) 3.270 uIU/mL 0.300-4.200 [facility] Thyroid Stim Hormone (TSH)on 05-27-2024 TSH 3.270 uIU/mL Normal 0.300-4.200 [facility] Comment on above: Order Comment: ENMANUEL E FAX RESULTS TO SHAMIKA HALL AND DR. FUNEZ Performed By: #### L 3410.9998, L501.9520 ####[facility] [address], [address] Orthopedic Visit Reporton Orthopedic Visit Report [facility] [address] [place] [address] OFFICE VISIT Date of Service: 05/22/24 MR#: [id number] Acct: [id number] Name: MONICA MALDONADO Rep #: [id number] : 1960 Provider: ILYA Antunez Age/Sex: 64/F [place] [facility] Status: Signed Intake Vital Signs 04/28/24 11:06 05/19/24 08:32 Height 5 ft 5 in 5 ft 5 in Weight: 234 lb BMI 38.9 BP 117/79 Blood Pressure Location Lt brachial Position Sitting Respiration 20 H Pulse 75 Pulse Source Monitor Temp 97.4 F L Pulse Oximetry (%) 97 Oxygen Delivery Method room air Intake Visit Reasons: LUMBAR SPINE Allergies adalimumab (From Humira) Allergy (Verified 05/22/24 14:06) Rash Penicillins Allergy (Verified 05/22/24 14:06) Rash adhesive Adverse Reaction (Verified 05/22/24 14:06) Rash tramadol Adverse Reaction (Verified 05/22/24 14:06) FEELING OF CONFUSION Medications ???Medication ???Instructions ???Recorded ???Confirmed ???Type omeprazole 40 mg capsule,delayed 40 mg PO DAILY 05/18/16 05/22/24 H istory release albuterol sulfate 2.5 mg/3 mL 2.5 mg (3 mL) inhalation Q6H PRN 0 04/26/21 05/22/24 Rx (0.083 %) solution for nebulization Wheezing #180 mL cholecalciferol (vitamin D3) 25 25 mcg PO DAILY 05/09/23 05/22/24 History mcg (1,000 unit) capsule Held on 07/31/23. Instructions: HOLDS FOR SUMMER, RESTARTS IN FALL hydroxychloroquine 200 mg tablet 200 mg PO BID 05/09/23 05/22/24 Hi story (Plaquenil) magnesium 250 mg tablet 250 mg PO DAILY 05/09/23 05/22/24 History trazodone 50 mg tablet 50 mg PO QHS 05/09/23 05/22/24 His tory leflunomide 20 mg tablet 20 mg PO DAILY 06/07/23 05/22/24 H istory albuterol sulfate 90 mcg/actuation 1 - 2 puff inhalation Q6H PRN MN N 08/30/23 05/22/24 Rx aerosol inhaler Sob /Or Wheezing #18 grams mecobalamin (vitamin B12) 5,000 mcg PO 04/01/24 05/22/24 History mcg disintegrating tablet fluticasone fur. 100 mcg-umeclid 1 inh inhalation DAILY #3 ea 05/1205/22/24 Rx 62.5 mcg-vilant 25 mcg inhalat.powder (Trelegy Ellipta) abatacept 125 mg/mL subcutaneous 125 mg subcut QWEEK 05/19/2405/22 History auto-injector (Orencia ClickJect) fluoxetine 40 mg capsule 40 mg PO QDAY 05/19/24 05/22/24 Hi story gabapentin 300 mg capsule 300 mg PO TID PRN 05/19/24 5 History mirabegron 50 mg tablet,extended 50 mg PO QDAY 05/19/24 05/22/24 Hi story release 24 hr sulfasalazine 500 mg 0.5 g PO BID 05/19/24 05/22/24 His tory tablet,delayed release PFSH Medical History Fatty (change of) liver, not elsewhere classified Body mass index [BMI] 40.0-44.9, adult Insomnia, unspecified Congestion of respiratory tract Wheezing Overactive bladder Hypokalemia Nicotine dependence, cigarettes, uncomplicated Hyperglycemia, unspecified Dizziness Nausea with vomiting, unspecified Tremor, unspecified Benign paroxysmal positional vertigo Unspecified abdominal pain Diarrhea Dysuria Wears glasses Anxiety Alcohol use History of steroid therapy Kidney stone High cholesterol Restless legs History of hiatal hernia Smoker CPAP (continuous positive airway pressure) dependence Sleep apnea COPD (chronic obstructive pulmonary disease) Shortness of breath on exertion Chronic cough History of pain when walking History of edema History of stress test Incontinence Depression Limb weakness Tobacco abuse Hyperlipidemia GERD (gastroesophageal reflux disease) Allergic rhinitis COPD (chronic obstructive pulmonary disease) Cervicalgia Cervical radiculopathy Rotator cuff syndrome Segmental and somatic dysfunction of thoracic region Acute maxillary sinusitis Bursitis of right shoulder Bicipital tendinitis of right shoulder Family history of alcoholism TAMRA (obstructive sleep apnea) Rheumatoid arthritis Spontaneous rupture of extensor tendons, right forearm Segmental and somatic dysfunction of lumbar region Surgical History Hx of surgical procedure History of esophagogastroduodenoscopy (EGD) Hx of colonoscopy h/o trigger finger release History of surgery on arm History of laparoscopic cholecystectomy History of appendectomy Family History Mother COPD (chronic obstructive pulmonary disease) Heart disease Osteoarthritis TAMRA (obstructive sleep apnea) Hypertension Father Cancer throat Abuse, drug or alcohol Brother Abuse, drug or alcohol Allergies Grandmother Allergies Hypertension Heart disease Social History Smoking Status: Current every day smoker lazaro (more 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 Normal [facility] PT D/C Summary (1)on 025 PT D/C Summary (1) [facility] Physical Therapy [facility] [address] [place] [address] / REHABILITATION SERVICES DISCHARGE SUMMARY MR#: [id number] Acct: [id number] Name: MONICA MALDONADO Rep #: [id number] : 1960 64 From: Zachary Tovar DPT, OCS, CSCS Referring Dr.: ILYA Antunez Status: REG RCR Insurance: [employer] SELF PAY INSURANCE Discharge Summary D/C summary: It has been my pleasure to treat MONICA MALDONADO referred by ILYA Antunez, with the diagnosis of lumbar and cervical readiculopathy for a total of 13 visit(s). Discharge Date: 05/22/24 Please see the following information for a summary of their discharge status. Subjective Subjective: i am reallly well right now. I am not gimping around or limping. I have more energy. Feels stronger. Was in Afib and has monitor on now. Stretching at home consistently. Is taking tylenol and ibuprofen together and doing that. has not needed it lately. Pain LB: Pain Intensity (Out of 10): 0 arms numb: Pain Intensity (Out of 10): 0 BLE: Pain Intensity (Out of 10): 0 Overall Improvement % Improvement: 70 Objective Objective/Function: Good lumbar ROM without hesitation or pain todya. Transitioning well adn walking without gait deviations. Goals Goal 1:: I appropriate pool based aggressive strength and postural and cervical and core and LE strenght program with progressions. Goal Progress: Goal Met Goal 2:: Patient continue to be painfree at rest and 90% better in overall arm numbness Goal Progress: 70% Goal 3:: back oswestry score 6 or better Goal Progress: Progressing Goal 4:: Progress to home/gym ex to help maintain ROM, posture and core strength to ease in recurrence Goal Progress: Pool Goal 5:: Pt feel exit bed without stiffneess or numbness in UE Goal Progress: Goal Met Plan Plan: d/c to I pool program. and home stretching. D/C Information d/c sentence: If there are questions or concerns regarding this patient's physical therapy, please feel free to call me at [phone]. Thank you for the referral of this patient. Sincerely, Zachary Tovar, DPT, OCS, CSCS Balance/Gait/Functional tests Balance/Special Test Scores Oswestry Low Back Score: 8 Improvement % Improvement: 70 05/22/24 [id number] CC: ILYA Antunez; Dr. Summer Funez MD EBG Signed Normal [facility] Pulmonary Visit Reporton Pulmonary Visit Report [facility] Pulmonary Medicine of [address] [place] [address] OFFICE VISIT Date of Service: 05/19/24 MR#: [id number] Acct: [id number] Name: MONICA MALDONADO Rep #: [id number] : 1960 Provider: VALERIE Foster Age/Sex: 64/F Location: [facility] Status: Signed Assessment and Plan Assessment and Plan (1) 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 classification: Status: Chronic Comment: FEV1 69% of predicted Plan: She does not appear to be an exacerbation of COPD today. She has had at least 2 exacerbations of COPD in the past year, for this reason I plan to keep a closer eye on her and have her follow-up more frequently. No need for prednisone or antibiotic. Continue current maintenance medication, symptomatically controlled with the use of triple therapy on Trelegy. Repeat baseline PFT and 6- minute walk test before returning to the office. Contact the office for any new or worsening symptoms. An acute visit and typically be arranged within 1-2 days. Follow-up in 6 months. (2) Smoking greater than 30 pack years: Status: Chronic Comment: Currently smoking 1 pack/day repeat LDCT ordered for April 2025 Plan: Encourage complete smoking cessation. Repeat LDCT in 12 months. (3) TAMRA (obstructive sleep apnea): Status: Chronic Comment: CPAP 11 Nasal - DASCO Plan: She is using and benefiting from Pap therapy. No indication for titration study at this time. Contact the office for any new or worsening symptoms in the meantime. Follow-up in 6 months. (4) Irregular heart rhythm: Status: Acute Plan: New. She denies any chest pain. We have never documented an irregular heart rhythm on exam in this office, the patient has never been told she had an irregular rhythm. She admits that she feels as though she has had some palpitations over the past few months and was wondering if she had an irregular heart rhythm. I contacted her primary care office and the nurse was able to look at her last exam, which also did not indicate any irregular heart rhythm. The nurse is going to pass this information on to the primary care doctor. The nurse will then reach out to the patient with any recommendations. The nurse does report that they have the ability to perform an EKG in the office if needed. The patient was educated that if she develops any chest pain she should report to the emergency department. She conveys understanding and is agreeable with this plan. (5) Shortness of breath: Status: Chronic Plan: She has noticed increase in shortness of breath over the past few months. However, she thought it might be related to the upper respiratory infection she was being treated for. This could be related to the irregular heart rhythm heard on exam today. I do plan to repeat a baseline PFT and 6-minute walk test before she returns to the office. Vital signs were stable, she was not hypoxic in the office today. Orders: Orders PFT Complete - DLCO, Spirometry b/a bronchodilators, lung volumes Today J44.9 - Chronic obstructive pulmonary disease, unspecified Simple Pulmonary Exercise Test Today J44.9 - Chronic obstructive pulmonary disease, unspecified Low Dose CT Lung Screening 04/19/25 F17.200 - Nicotine dependence, unspecified, uncomplicated, F17.210 - Nicotine dependence, cigarettes, uncomplicated HPI 1 Y FU Chief Complaint: Shortness of breath HPI Comments Details: This patient presents to the office today for follow-up of her COPD and obstructive sleep apnea. She is ambulatory and currently on room air. She has not been seen in the ED or urgent care for any respiratory illness since her last office visit. She was treated with antibiotics and prednisone starting 12/29/23. Symptoms did not get better, so her PCP repeated the steroid and used 2 additional antibiotics. She went back to her PCP earlier this month, she put her on strong antibiotics but no steroids this time. It knocked it out right away. She is compliant with use of Trelegy 1 puff daily. She does report rinsing her mouth out after each use. Patient said that such as sore throat or thrush. She has not recently needed to use her albuterol rescue inhaler. She continues to smoke cigarettes. Currently smoking 1 pack/day. She does have shortness of breath on exertion. She admits that shortness of breath may be getting worse. However, she thought it was related to the upper respiratory infection she was being treated for. She has a cough that is nonproductive. She denies any hemoptysis. She has occasional wheezing and chest congestion but denies any chest pain. She does admit that she has felt occasional palpitations. She also denies any fever, chills or body aches. She wakes up feeling rested and refreshed. She is not having difficulty with mask leaks, dry mouth, excessive nocturia or morning headaches. (more 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 Normal [facility] Magnetic resonance imaging r eportOrdered By: Geronimo Bartlett on 05-14-2024 Study report [facility] Imaging Services [address] [place] [address] Spine Lumbar (Routine) MR#: [id number] Acct: [id number] Name: MONICA MALDONADO Rep #: [id number] : 1960 F 64 From: Rubia Bartlett MD PCP: Dr. Summer Funez MD Status: REG CL I Study:Spine Lumbar (Routine) Date of Exam: 05/12/24 Exam# [id number] Ordering Dr: Wilver Nicholas EXAM: MRI lumbar spine without contrast. CLINICAL HISTORY: Back pain COMPARISON: Lumbar spine radiograph 03/26/2024 TECHNIQUE: Multiplanar multisequence MRI of the lumbar spine without contrast. FINDINGS: Slight exaggeration of the lumbar lordosis. Vertebral body heights and disc spaces are within normal limits. . No evidence of compression fracture. Alignment is normal. No listhesis. The bone marrow signal is unremarkable. There is no abnormal bone STIR signal. The included distal thoracic cord is normal in caliber and signal. The conus medullaris terminates at L1 level. There is no clumping of the nerve roots. L1/2: No canal stenosis or neural foraminal narrowing.. L2/3: No significant canal stenosis or neural foraminal narrowing.. L3/4: Small circumferential disc bulge and mild facet degenerative changes with flattening of the ventral thecal sac. No significant canal stenosis. Mild bilateral neural foraminal narrowing.. L4/5: Small disc bulge and mild facet degenerative changes with flattening of the ventral thecal sac. No significant canal stenosis. Neural foramina are patent.. L5/S1: Small disc protrusion and facet degenerative changes without canal stenosis. Mild neural foraminal narrowing. The visualized prevertebral and paraspinal soft tissues are unremarkable. MRI/Spine Lumbar (Routine) IMPRESSION: No acute findings of the lumbar spine. Multilevel degenerative changes, without high-grade canal stenosis or neural foraminal narrowing. Reading Location: [facility] CC: ILYA Antunez; Dr. Summer Funez MD ~ Director Medical Writing: Signed [facility] Spine Lumbar (Routine)on Spine Lumbar (Routine) [facility] Imaging Services [address] [place] [id number] Spine Lumbar (Routine) MR#: [id number] Acct: [id number] Name: MONICA MALDONADO Rep #: [id number] : 1960 F 64 From: Geronimo cui MD PCP: Dr. Summer Funez MD Status: REG CLI Study: Spine Lumbar (Routine) Date of Exam: 05/12/24 Exam# [id number] Ordering Dr: Kala Nicholas EXAM: MRI lumbar spine without contrast. CLINICAL HISTORY: Back pain COMPARISON: Lumbar spine radiograph 03/26/2024 TECHNIQUE: Multiplanar multisequence MRI of the lumbar spine without contrast. FINDINGS: Slight exaggeration of the lumbar lordosis. Vertebral body heights and disc spaces are within normal limits. . No evidence of compression fracture. Alignment is normal. No listhesis. The bone marrow signal is unremarkable. There is no abnormal bone STIR signal. The included distal thoracic cord is normal in caliber and signal. The conus medullaris terminates at L1 level. There is no clumping of the nerve roots. L1/2: No canal stenosis or neural foraminal narrowing.. L2/3: No significant canal stenosis or neural foraminal narrowing.. L3/4: Small circumferential disc bulge and mild facet degenerative changes with flattening of the ventral thecal sac. No significant canal stenosis. Mild bilateral neural foraminal narrowing.. L4/5: Small disc bulge and mild facet degenerative changes with flattening of the ventral thecal sac. No significant canal stenosis. Neural foramina are patent.. L5/S1: Small disc protrusion and facet degenerative changes without canal stenosis. Mild neural foraminal narrowing. The visualized prevertebral and paraspinal soft tissues are unremarkable. MRI/Spine Lumbar (Routine) IMPRESSION: No acute findings of the lumbar spine. Multilevel degenerative changes, without high-grade canal stenosis or neural foraminal narrowing. Reading Location: [facility] CC: ILYA Antunez; Dr. Summer Funez MD Director Medical Writing: Signed Normal [facility] L3410.9998on 05-02-2024 [facility]. COMMENT Normal . [facility] Comment on above: Order Comment: [id number] 9ELF RED POUR OFF RF Result Comment: Test Ordered: [id number] Enhanced Liver Fibrosis (ELF) ELF(TM) Score 8.71 BN Reference Range: <9.80 ELF(TM) Score Interpretation: Risk cut-offs to assess the likelihood of progression to cirrhosis and liver-related clinical events within 3.9 years following baseline ELF score (IQR: 14.0-22.4 months)*: Lower risk < 9.80 Mid risk 9.80 - 11.29 Higher risk >11.29 Note: The ELF(TM) Score is a unitless numerical value. *Deyvi SA, Zurdo LANDON, Travis T, et al. Selonsertib for patients with bridging fibrosis or compensated cirrhosis due to SAEZ: Results from randomized phase III STELLAR trials. J Hepatol. 2020 Aug;73(1):26-39. Performed at: [facility] [address] [id number] Arborer: Jade Garcia MD, Phone: [phone] Performed at: [facility] [address] [id number] Arborer: Doc Rizzo PhD, Phone: [phone] Performed By: #### L 100.0100, L3890.6102, L500.4050, L3890.6301, L3890.6202, L3100.0300, L3410.9998, L3100.0460 ####[facility] [address] [place], [place], [id number] Abdomen Limitedon 05-01-2024 Abdomen Limited [facility] Imaging Services [address] [place], [place] [address] Abdomen Limited MR#: [id number] Acct: [id number] Name: MONICA MALDONADO Rep #: [id number] : 1960 F 64 From: Beny farrell MD PCP: Dr. Summer Funez MD Status: REG CLI Study: Abdomen Limited Date of Exam: 05/01/24 Exam# [id number] Ordering Dr: Heather Hall PROCEDURE: ABDOMEN LIMITED REASON FOR EXAM: RUQ PAIN, EPIG PAIN COMPARISON: None FINDINGS: Liver: Grossly normal size and echotexture. Gallbladder: Surgically absent. Common bile duct: Normal measuring 7.3 mm.. Pancreas: Visualized portions are sonographically unremarkable. Visualized portions of the right kidney are unremarkable. No right upper quadrant ascites. US/Abdomen Limited IMPRESSION: Status post cholecystectomy. No acute abnormality is seen. Reading Location: [id number] CC: COMPENSATION ANALYST-Michael Hall; Dr. Summer Funez MD Director Medical Writing: Signed Normal [facility] Hepatitis A AB, Totalon 04-19 HEPATITIS A,TOT Negative Normal Negative [facility] Comment on above: Result Comment: Comm ent: The HAV total antibody assay detects both IgG and IgM but does not differentiate between them. A negative result suggests susceptibility to infection. A positive result could be due to vaccination, previously resolved infection or active infection. Testing for HAV IgM should be performed if active HAV infection is suspected. [facility] offers profiles that will automatically reflex positive HAV total antibody results to IgM (e.g., panel #[id number] HAV Antibody w/ Rfx). Performed at: [address] [id number] Arborer: Doc Rizzo PhD, Phone: [phone] Performed By: #### L 100.0100, L3890.6102, L500.4050, L3890.6301, L3890.6202, L3100.0300, L3410.9998, L3100.0460 ####[facility] [address] [facility] [place], [place], [id number] Hepatitis B Core Ab Totalon 04-29-2024 HEP B CORE,TOT Negative Normal Negative [facility] Comment on above: Performed By: #### L 100.0100, L3890.6102, L500.4050, L3890.6301, L3890.6202, L3100.0300, L3410.9998, L3100.0460 ####[facility] [address] [facility] [place], [place], [address] Absolute neutrophil countOrd ered By: Heather Hall on 04-28-2024 Neutrophils (Bld) [#/Vol] 4.0 10*3/uL 2.0-7.7 [facility] Anion gap in Serum or Plasma Ordered By: Heather Hall on 04-28-2024 Anion gap [Moles/Vol] 12 mmol/L 5-15 [facility] BUN/creatinine ratioOrdered By: Heather Hall on 04-28-2024 Urea nitrogen/Creatinine [Mass ratio] 22.4 mg/mg High 10-20 [facility] Basophil percentageOrdered B y: Heather Hall on 04-28-2024 Basophils/100 WBC (Bld) 0.3 % 0-1 [facility] Bilirubin, totalOrdered By: Heather Hall on 04-28-2024 Bilirubin [Mass/Vol] 0.23 mg/dL 0.00-1.30 [facility] CBC W/Diff, Automatedon 04-19-2024 Absolute Lymph 2.20 X10 3/uL Normal 0.83-4.51 [facility] Comment on above: Performed By: #### L 100.0100, L3890.6102, L500.4050, L3890.6301, L3890.6202, L3100.0300, L3410.9998, L3100.0460 #### [facility] [address] [place], [address] Absolute Neut 4.0 X10 3/uL Normal 2.0-7.7 [facility] Comment on above: Performed By: #### L 100.0100, L3890.6102, L500.4050, L3890.6301, L3890.6202, L3100.0300, L3410.9998, L3100.0460 #### [facility] [address] [place], [address] Basophils/100 WBC (Bld) 0.3 % Normal 0-1 [facility] Comment on above: Performed By: #### L 100.0100, L3890.6102, L500.4050, L3890.6301, L3890.6202, L3100.0300, L3410.9998, L3100.0460 #### [facility] [address] [place], [address] Eosinophils/100 WBC (Bld) 0.4 % Normal 0-5 [facility] Comment on above: Performed By: #### L 100.0100, L3890.6102, L500.4050, L3890.6301, L3890.6202, L3100.0300, L3410.9998, L3100.0460 #### [facility] [address] [place], [place], [phone] (438) Erythrocyte distribution width (RBC) [Ratio] 12.8 % Normal 11.6-14.6 [facility] Comment on above: Performed By: #### L 100.0100, L3890.6102, L500.4050, L3890.6301, L3890.6202, L3100.0300, L3410.9998, L3100.0460 #### [facility] [address] [facility] [address] [facility] [place], [address] (985) Hematocrit (Bld) [Volume fraction] 39.9 % Normal 37-47 [facility] Comment on above: Performed By: #### L 100.0100, L3890.6102, L500.4050, L3890.6301, L3890.6202, L3100.0300, L3410.9998, L3100.0460 #### [facility] [address] [place], [address] (599) Hemoglobin (Bld) [Mass/Vol] 13.8 g/dL Normal 12.0-15.0 [facility] Comment on above: Performed By: #### L 100.0100, L3890.6102, L500.4050, L3890.6301, L3890.6202, L3100.0300, L3410.9998, L3100.0460 #### [facility] [address] [place], [place], [phone] ([address] IG% 0.300 Normal 0.0-0.9 [facility] Comment on above: Result Comment: IG% - Immature Granulocytes (promyelocytes, myelocytes and metamyelocytes) > 1% indicates that a LEFT SHIFT is Present. Performed By: #### L 100.0100, L3890.6102, L500.4050, L3890.6301, L3890.6202, L3100.0300, L3410.9998, L3100.0460 #### [facility] [address] [place], [address] Lymphocytes/100 WBC (Bld) 32.2 % Normal 19-41 [facility] Comment on above: Performed By: #### L 100.0100, L3890.6102, L500.4050, L3890.6301, L3890.6202, L3100.0300, L3410.9998, L3100.0460 #### [facility] [address] [place], [address] MCH (RBC) [Entitic mass] 32.2 pg High 27.0-32.0 [facility] Comment on above: Performed By: #### L 100.0100, L3890.6102, L500.4050, L3890.6301, L3890.6202, L3100.0300, L3410.9998, L3100.0460 #### [facility] [address] [place], [address] MCHC (RBC) [Mass/Vol] 34.6 g/dL Normal 32-36 [facility] Comment on above: Performed By: #### L 100.0100, L3890.6102, L500.4050, L3890.6301, L3890.6202, L3100.0300, L3410.9998, L3100.0460 #### [facility] [address] [place], [address] MCV (RBC) [Entitic vol] 93.2 fL Normal 81-99 [facility] Comment on above: Performed By: #### L 100.0100, L3890.6102, L500.4050, L3890.6301, L3890.6202, L3100.0300, L3410.9998, L3100.0460 #### [facility] [address] [place], [address] Monocytes/100 WBC (Bld) 7.6 % Normal 0-10 [facility] Comment on above: Performed By: #### L 100.0100, L3890.6102, L500.4050, L3890.6301, L3890.6202, L3100.0300, L3410.9998, L3100.0460 #### [facility] [address] [place], [address] Neutrophils/100 WBC (Bld) 59.2 % Normal 47-70 [facility] Comment on above: Performed By: #### L 100.0100, L3890.6102, L500.4050, L3890.6301, L3890.6202, L3100.0300, L3410.9998, L3100.0460 #### [facility] [address] [place], [address] Nucleated RBC (Bld) [#/Vol] 0 10*3/uL Normal 0-5 [facility] Comment on above: Performed By: #### L 100.0100, L3890.6102, L500.4050, L3890.6301, L3890.6202, L3100.0300, L3410.9998, L3100.0460 #### [facility] [address] [place], [address] Platelet mean volume (Bld) [Entitic vol] 8.3 fL Normal 6.2-12.0 [facility] Comment on above: Performed By: #### L 100.0100, L3890.6102, L500.4050, L3890.6301, L3890.6202, L3100.0300, L3410.9998, L3100.0460 #### [facility] [address] [place], [address] Platelets (Bld) [#/Vol] 241 10*3/uL Normal 150-450 [facility] Comment on above: Performed By: #### L 100.0100, L3890.6102, L500.4050, L3890.6301, L3890.6202, L3100.0300, L3410.9998, L3100.0460 #### [facility] [address] [place], [address] RBC (Bld) [#/Vol] 4.28 10*6/uL Normal 4.2-5.4 [facility] Comment on above: Performed By: #### L 100.0100, L3890.6102, L500.4050, L3890.6301, L3890.6202, L3100.0300, L3410.9998, L3100.0460 #### [facility] [address] [place], [address] RDW SD 44.0 fl High 35.1-43.9 [facility] Comment on above: Performed By: #### L 100.0100, L3890.6102, L500.4050, L3890.6301, L3890.6202, L3100.0300, L3410.9998, L3100.0460 #### [facility] [address] [place], [address] WBC (Bld) [#/Vol] 6.8 10*3/uL Normal 4.4-11.0 [facility] Comment on above: Performed By: #### L 100.0100, L3890.6102, L500.4050, L3890.6301, L3890.6202, L3100.0300, L3410.9998, L3100.0460 #### [facility] [address] [place], [address] Carbon dioxide, total [Moles /volume] in Central venous bloodOrdered By: Heather Hall on 04-28-2024 CO2 [Moles/Vol] 24.2 mmol/L 21.0-32.0 [facility] Chloride assayOrdered By: Kip spencervahe Hall on 04-28-2024 Chloride [Moles/Vol] 99 mmol/L 98-108 [facility] Comprehensive Metabolic Prof ilon 04-28-2024 Albumin [Mass/Vol] 4.2 g/dL Normal 3.4-4.8 [facility] Comment on above: Performed By: #### L 100.0100, L3890.6102, L500.4050, L3890.6301, L3890.6202, L3100.0300, L3410.9998, L3100.0460 ####[facility] [address] [place], [place], [phone](931) Albumin/Globulin [Mass ratio] 2.0 {ratio} Normal 0.9-2.4 [facility] Comment on above: Performed By: #### L 100.0100, L3890.6102, L500.4050, L3890.6301, L3890.6202, L3100.0300, L3410.9998, L3100.0460 ####[facility] [address] [place], [place], [phone] ALK PHOS 63 U/L Normal 35-104 [facility] Comment on above: Performed By: #### L 100.0100, L3890.6102, L500.4050, L3890.6301, L3890.6202, L3100.0300, L3410.9998, L3100.0460 ####[facility] [address] [place], [address] ALT [Catalytic activity/Vol] 16 U/L Normal <=34 [facility] Comment on above: Performed By: #### L 100.0100, L3890.6102, L500.4050, L3890.6301, L3890.6202, L3100.0300, L3410.9998, L3100.0460 ####[facility] [address] [place], [address] AST [Catalytic activity/Vol] 19 U/L Normal <=31 [facility] Comment on above: Performed By: #### L 100.0100, L3890.6102, L500.4050, L3890.6301, L3890.6202, L3100.0300, L3410.9998, L3100.0460 ####[facility] [address] [place], [address] Bilirubin [Mass/Vol] 0.23 mg/dL Normal 0.00-1.30 [facility] Comment on above: Performed By: #### L 100.0100, L3890.6102, L500.4050, L3890.6301, L3890.6202, L3100.0300, L3410.9998, L3100.0460 ####[facility] [address] [place], [place], [phone](459) BUN/CRE 22.4 RATIO High 10-20 [facility] Comment on above: Performed By: #### L 100.0100, L3890.6102, L500.4050, L3890.6301, L3890.6202, L3100.0300, L3410.9998, L3100.0460 ####[facility] [address] [place], [address] Calcium [Mass/Vol] 9.3 mg/dL Normal 7.6-11.0 [facility] Comment on above: Performed By: #### L 100.0100, L3890.6102, L500.4050, L3890.6301, L3890.6202, L3100.0300, L3410.9998, L3100.0460 ####[facility] [address] [place], [address] Chloride [Moles/Vol] 99 mmol/L Normal 98-108 [facility] Comment on above: Performed By: #### L 100.0100, L3890.6102, L500.4050, L3890.6301, L3890.6202, L3100.0300, L3410.9998, L3100.0460 ####[facility] [address] [place], [place], [phone](812) CO2 [Moles/Vol] 24.2 mmol/L Normal 21.0-32.0 [facility] Comment on above: Performed By: #### L 100.0100, L3890.6102, L500.4050, L3890.6301, L3890.6202, L3100.0300, L3410.9998, L3100.0460 ####[facility] [address] [place], [place], [phone](091) Creatinine [Mass/Vol] 0.91 mg/dL Normal 0.70-1.20 [facility] Comment on above: Performed By: #### L 100.0100, L3890.6102, L500.4050, L3890.6301, L3890.6202, L3100.0300, L3410.9998, L3100.0460 ####[facility] [address] [place], [place], [phone](310) GAP 12 Normal 5-15 [facility] Comment on above: Performed By: #### L 100.0100, L3890.6102, L500.4050, L3890.6301, L3890.6202, L3100.0300, L3410.9998, L3100.0460 ####[facility] [address] [place], [address](502) GFR/1.73 sq M.predicted among non-blacks MDRD (S/P/Bld) [Vol rate/Area] 71 mL/min/{1.73_m2} Normal >60 [facility] Comment on above: Result Comment: mL/m in/1.73m2 CKD-EPI Creatinine Equation (2020) Performed By: #### L 100.0100, L3890.6102, L500.4050, L3890.6301, L3890.6202, L3100.0300, L3410.9998, L3100.0460 ####[facility] [address] [place], [address] Globulin (S) [Mass/Vol] 2.0 g/dL Low 2.2-4.2 [facility] Comment on above: Performed By: #### L 100.0100, L3890.6102, L500.4050, L3890.6301, L3890.6202, L3100.0300, L3410.9998, L3100.0460 ####[facility] [address] [place], [address] Glucose [Mass/Vol] 99 mg/dL Normal 70-99 [facility] Comment on above: Performed By: #### L 100.0100, L3890.6102, L500.4050, L3890.6301, L3890.6202, L3100.0300, L3410.9998, L3100.0460 ####[facility] [address] [place], [address] Potassium [Moles/Vol] 4.3 mmol/L Normal 3.3-5.1 [facility] Comment on above: Performed By: #### L 100.0100, L3890.6102, L500.4050, L3890.6301, L3890.6202, L3100.0300, L3410.9998, L3100.0460 ####[facility] [address] [place], [address] Sodium [Moles/Vol] 135 mmol/L Normal 133-145 [facility] Comment on above: Performed By: #### L 100.0100, L3890.6102, L500.4050, L3890.6301, L3890.6202, L3100.0300, L3410.9998, L3100.0460 ####[facility] [address] [place], [place], [id number] T PROT 6.2 g/dL Normal 5.9-8.4 [facility] Comment on above: Performed By: #### L 100.0100, L3890.6102, L500.4050, L3890.6301, L3890.6202, L3100.0300, L3410.9998, L3100.0460 ####[facility] [address] [place], [place], [phone] Urea nitrogen [Mass/Vol] 20 mg/dL High 4-19 [facility] Comment on above: Performed By: #### L 100.0100, L3890.6102, L500.4050, L3890.6301, L3890.6202, L3100.0300, L3410.9998, L3100.0460 ####[facility] [address] [place], [place], [phone] Eosinophil percentageOrdered By: Heather Hall on 04-28-2024 Eosinophils/100 WBC (Bld) 0.4 % 0-5 [facility] Erythrocyte distribution wid th ratioOrdered By: Heather Hall on 04-28-2024 Erythrocyte distribution width (RBC) [Ratio] 12.8 % 11.6-14.6 [facility] Erythrocyte distribution wid th standard deviationOrdered By: Heather Hall on 04-28-2024 Erythrocyte distribution width (RBC) [Entitic vol] 44.0 fL High 35.1-43.9 [facility] GFR/1.73 sq M.predicted allyssa g non-blacks MDRD (S/P/Bld) [Vol rate/Area]Ordered By: Heather Hall on 04-28-2024 Estimated GFR (MDRD) Non-Af Amer 71 >60 [facility] Comment on above: mL/min/1.73m2 CKD-EP I Creatinine Equation (2021) Gastroenterology Visit Repor ton 04-28-2024 Gastroenterology Visit Report [facility] Gastroenterology [address] [place] [address] OFFICE VISIT Date of Service: 04/28/24 MR#: [id number] Acct: [id number] Name: MONICA MALDONADO Rep #: [id number] : 1960 Provider: VALERIE parikh Age/Sex: 64/F [place] [facility] [place] Status: Signed Intake Vital Signs 04/07/24 07:57 04/28/24 11:06 Height 5 ft 5 in 5 ft 5 in Weight: 236 lb 4 oz BMI 39.3 BP 123/70 H Respiration 18 Pulse 72 Pulse Oximetry (%) 96 Oxygen Delivery Method room air Intake Visit Reasons: 6 M 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 Is patient in pain?: No Allergies adalimumab (From Humira) Allergy (Verified 04/28/24 11:03) Rash Penicillins Allergy (Verified 04/28/24 11:03) Rash adhesive Adverse Reaction (Verified 04/28/24 11:03) Rash tramadol Adverse Reaction (Verified 04/28/24 11:03) FEELING OF CONFUSION Medications ???Medication ???Instructions ???Recorded ???Confirmed ???Type omeprazole 40 mg capsule,delayed 40 mg PO DAILY 05/18/16 04/28/24 H istory release abatacept 50 mg/0.4 mL 50 mg subcut QWEEK 12/10/20 History subcutaneous syringe (Orencia) mirabegron 25 mg tablet,extended 25 mg PO DAILY 12/21/20 04/28/24 H istory release 24 hr (Myrbetriq) albuterol sulfate 2.5 mg/3 mL 2.5 mg (3 mL) inhalation Q6H PRN 0 04/26/21 04/28/24 Rx (0.083 %) solution for nebulization Wheezing #180 mL fluticasone fur. 100 mcg-umeclid 1 inh inhalation DAILY #3 ea 05/0604/28/24 Rx 62.5 mcg-vilant 25 mcg inhalat.powder (Trelegy Ellipta) cholecalciferol (vitamin D3) 25 25 mcg PO DAILY 05/09/23 04/28/24 History mcg (1,000 unit) capsule Held on 07/31/23. Instructions: HOLDS FOR SUMMER, RESTARTS IN FALL fluoxetine 10 mg capsule 10 mg PO DAILY 05/09/23 04/28/24 H istory hydroxychloroquine 200 mg tablet 200 mg PO BID 05/09/23 04/28/24 Hi story (Plaquenil) magnesium 250 mg tablet 250 mg PO DAILY 05/09/23 04/28/24 History trazodone 50 mg tablet 50 mg PO QHS 05/09/23 04/28/24 His tory leflunomide 20 mg tablet 20 mg PO DAILY 06/07/23 04/28/24 H istory albuterol sulfate 90 mcg/actuation 1 - 2 puff inhalation Q6H PRN MN N 08/30/23 04/28/24 Rx aerosol inhaler Sob /Or Wheezing #18 grams gabapentin 100 mg capsule 100 mg PO TID PRN pain 12/29/23 History (Neurontin) mecobalamin (vitamin B12) 5,000 mcg PO 04/01/24 04/28/24 History mcg disintegrating tablet PFSH Medical History Fatty (change of) liver, not elsewhere classified Body mass index [BMI] 40.0-44.9, adult Insomnia, unspecified Congestion of respiratory tract Wheezing Overactive bladder Hypokalemia Nicotine dependence, cigarettes, uncomplicated Hyperglycemia, unspecified Dizziness Nausea with vomiting, unspecified Tremor, unspecified Benign paroxysmal positional vertigo Unspecified abdominal pain Diarrhea Dysuria Wears glasses Anxiety Alcohol use History of steroid therapy Kidney stone High cholesterol Restless legs History of hiatal hernia Smoker CPAP (continuous positive airway pressure) dependence Sleep apnea COPD (chronic obstructive pulmonary disease) Shortness of breath on exertion Chronic cough History of pain when walking History of edema History of stress test Incontinence Depression Limb weakness Tobacco abuse Hyperlipidemia GERD (gastroesophageal reflux disease) Allergic rhinitis COPD (chronic obstructive pulmonary disease) Cervicalgia Cervical radiculopathy Rotator cuff syndrome Segmental and somatic dysfunction of thoracic region Acute maxillary sinusitis Bursitis of right shoulder Bicipital tendinitis of right shoulder Family history of alcoholism TAMRA (obstructive sleep apnea) Rheumatoid arthritis Spontaneous rupture of extensor tendons, right forearm Segmental and somatic dysfunction of lumbar region Surgical History Hx of surgical procedure History of esophagogastroduodenoscopy (EGD) Hx of colonoscopy h/o trigger finger release History of surgery on arm History of laparoscopic cholecystectomy History of appendectomy Family History Mother COPD (chronic obstructive pulmonary disease) Heart disease Osteoarthritis TAMRA (obstructive sleep apnea) Hypertension Father Cancer throat Abuse, drug or alcohol Brother Abuse, drug or alcohol Allergies Grandmother Allergies Hypertension Heart disease Social History Smoking Status: Current every day smoker tobacco type: cigarettes Tobacco: How many years used: 40 second hand exposure: Yes 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 Normal [facility] HBV core Ab Ql (S)Ordered By : Heather Hall on 04-28-2024 Hepatitis B Core Total Antibody Negative Negative [facility] HBV surface Ab Ql (S)Ordered By: Heather Hall on 04-28-2024 Hepatitis B Surface Antibody Non-Reactive [facility] Comment on above: <8.5 mIU/mL: Non-[place] ctive8.5<= x <11.5 mIU/mL: Indeterminate>=11.5 mIU/mL: Reactive Non Reactive: Inconsistent with immunity less than <10 mIU/mL Reactive: Consistent with immunity greater than or equal to 10 mIU/mL HBV surface Ag Ql (S)Ordered By: Heather Hall on 04-28-2024 Hepatitis B Surface Antigen Non-Reactive Nonreactive [facility] Comment on above: Reactive: Presumptiv e evidence of HBV. Repeatedly reactive samples must be confirmed using a neutralization test ([facility] HBsAg Confirmatory Test)Non-Reactive: HBsAg not detected; does not exclude the possibility of exposure to HBV Hematocrit Auto (Bld) [Volum e fraction]Ordered By: Heather Hall on 04-28-2024 Hematocrit (Bld) [Volume fraction] 39.9 % 37-47 [facility] Hemoglobin measurementOrdere d By: Heather Hall on 04-28-2024 Hemoglobin (Bld) [Mass/Vol] 13.8 g/dL 12.0-15.0 [facility] Hepatitis A virus total anti body assayOrdered By: Heather Hall on 04-28-2024 Hepatitis A Antibody Total Negative Negative [facility] Comment on above: Comment: The HAV tot al antibody assay detects both IgG andIgM but does not differentiate between them. A negativeresult suggests susceptibility to infection. A positiveresult could be due to vaccination, previously resolvedinfection or active infection. Testing for HAV IgM shouldbe performed if active HAV infection is suspected. [facility] that will automatically reflex positive HAVtotal antibody results to IgM (e.g., panel #[id number] HAVAntibody w/ Rfx).Performed at: [facility] [address] [id number] Director: Doc Rizzo PhD, Phone: [phone] Hepatitis C antibodyOrdered By: Heather Hall on 04-28-2024 Hepatitis C Antibody Non-Reactive Nonreactive [facility] Comment on above: Reactive: Presumptiv e evidence of antibodies to HCV. Follow CDC recommendations for supplemental testing.Non-Reactive: Antibodies to HCV were not detected; does not exclude the possibility of exposure to HCVReactive Results are presumptive evidence of antibodies to HCV. Follow CDC recommendations for supplemental testing.Order confirmation testing: HCV Quant by PCR testing - HCVPCR #[id number] Non Reactive: < 0.8 Equivocal: >/= 0.8 to < 1.0 Reactive: >/= 1.0The CDC requires that a reactive/equivocal HCV antibody result be sent out for confirmation. HCV Quant by PCR testing. Immature granulocytes/100 WB C Auto (Bld)Ordered By: Heather Hall on 04-28-2024 Immature granulocytes/100 WBC (Bld) 0.300 % 0.0-0.9 [facility] Comment on above: IG% - Immature Granu locytes (promyelocytes, myelocytes and metamyelocytes) > 1% indicates that a LEFT SHIFT is Present. L3890.6102on 04-28-2024 HEP B Surf Ag Non-Reactive Normal Nonreactive [facility] Comment on above: Result Comment: Reac tive: Presumptive evidence of HBV. Repeatedly reactive samples must be confirmed using a neutralization test ([employer] HBsAg Confirmatory Test) Non-Reactive: HBsAg not detected; does not exclude the possibility of exposure to HBV Performed By: #### L 100.0100, L3890.6102, L500.4050, L3890.6301, L3890.6202, L3100.0300, L3410.9998, L3100.0460 ####[facility] [address] [facility]. [place], [place], [address] L3890.6202on 04-28-2024 HEP B Surf Ab Non-Reactive Normal [facility] Comment on above: Result Comment: <8.5 mIU/mL: Non-Reactive 8.5<= x <11.5 mIU/mL: Indeterminate >=11.5 mIU/mL: Reactive Non Reactive: Inconsistent with immunity less than <10 mIU/mL Reactive: Consistent with immunity greater than or equal to 10 mIU/mL Performed By: #### L 100.0100, L3890.6102, L500.4050, L3890.6301, L3890.6202, L3100.0300, L3410.9998, L3100.0460 ####[facility] [address] [facility]. [place], [place], [id number] L3890.6301on 04-28-2024 Hepatitis C Ab Non-Reactive Normal Nonreactive [facility] Comment on above: Result Comment: Reac tive: Presumptive evidence of antibodies to HCV. Follow CDC recommendations for supplemental testing. Non-Reactive: Antibodies to HCV were not detected; does not exclude the possibility of exposure to HCV Reactive Results are presumptive evidence of antibodies to HCV. Follow CDC recommendations for supplemental testing. Order confirmation testing: HCV Quant by PCR testing - HCVPCR #[id number] Non Reactive: < 0.8 Equivocal: >/= 0.8 to < 1.0 Reactive: >/= 1.0 The CDC requires that a reactive/equivocal HCV antibody result be sent out for confirmation. HCV Quant by PCR testing. Performed By: #### L 100.0100, L3890.6102, L500.4050, L3890.6301, L3890.6202, L3100.0300, L3410.9998, L3100.0460 ####[facility] [address] [place], [address] Laboratory - Chemistry and C hemistry - challengeOrdered By: Heather Hall on 04-28-2024 AST [Catalytic activity/Vol] 19 U/L <32 [facility] Lymphocytes Auto (Unsp spec) [#/Vol]Ordered By: Heather Hall on 04-28-2024 Lymphocytes (Bld) [#/Vol] 2.20 10*3/uL 0.83-4.51 [facility] Lymphocytes/100 WBC Auto (Un sp spec)Ordered By: Heather Hall on 04-28-2024 Lymphocytes/100 WBC (Bld) 32.2 % 19-41 [facility] MCV (mean corpuscular volume ) determinationOrdered By: Heather Hall on 04-28-2024 MCV (RBC) [Entitic vol] 93.2 fL 81-99 [facility] Mean corpuscular hemoglobin (MCH) determinationOrdered By: Heather Hall on 04-28-2024 MCH (RBC) [Entitic mass] 32.2 pg High 27.0-32.0 [facility] Mean corpuscular hemoglobin concentration (MCHC) determinationOrdered By: Heather Hall on 04-28-2024 MCHC (RBC) [Mass/Vol] 34.6 g/dL 32-36 [facility] Mean platelet volume determi nationOrdered By: Heather Hall on 04-28-2024 Platelet mean volume (Bld) [Entitic vol] 8.3 fL 6.2-12.0 [facility] Monocyte percentageOrdered B y: Heather Hall on 04-28-2024 Monocytes/100 WBC (Bld) 7.6 % 0-10 [facility] Neutrophil percentageOrdered By: Heather Hall on 04-28-2024 Neutrophils/100 WBC (Bld) 59.2 % 47-70 [facility] Nucleated red blood cell per centageOrdered By: Heather Hall on 04-28-2024 Nucleated RBC/100 WBC (Bld) [Ratio] 0 % 0-5 [facility] Platelet countOrdered By: Kip Hall on 04-28-2024 Platelets (Bld) [#/Vol] 241 10*3/uL 150-450 [facility] Potassium (Unsp spec) [Mass/ Vol]Ordered By: Heather Hall on 04-28-2024 Potassium [Moles/Vol] 4.3 mmol/L 3.3-5.1 [facility] RBC Auto (Bld) [#/Vol]Ordere d By: Heather Hall on 04-28-2024 RBC (Bld) [#/Vol] 4.28 10*6/uL 4.2-5.4 [facility] Serum creatinine measurement (mass/volume)Ordered By: Heather Hall on 04-28-2024 Creatinine [Mass/Vol] 0.91 mg/dL 0.70-1.20 [facility] Serum globulin measurementOr dered By: Heather Hall on 04-28-2024 Globulin (S) [Mass/Vol] 2.0 g/dL Low 2.2-4.2 [facility] Serum glucose measurement (m ass/volume)Ordered By: Heather Hall on 04-28-2024 Glucose [Mass/Vol] 99 mg/dL 70-99 [facility] Serum or plasma alanine laureano otransferase (ALT) measurementOrdered By: Heather Hall on 04-28-2024 ALT [Catalytic activity/Vol] 16 U/L <35 [facility] Serum or plasma albumin ilana urement (mass/volume)Ordered By: Heather Hall on 04-28-2024 Albumin [Mass/Vol] 4.2 g/dL 3.4-4.8 [facility] Serum or plasma albumin/glob ulin mass ratioOrdered By: Heather Hall on 04-28-2024 Albumin/Globulin [Mass ratio] 2.0 {ratio} 0.9-2.4 [facility] Serum or plasma alkaline andrew sphatase measurementOrdered By: Heather Hall on 04-28-2024 ALP [Catalytic activity/Vol] 63 U/L 35-104 [facility] Serum or plasma calcium ilana urement (mass/volume)Ordered By: Heather Hall on 04-28-2024 Calcium [Mass/Vol] 9.3 mg/dL 7.6-11.0 [facility] Serum or plasma urea nitroge n measurement (mass/volume)Ordered By: Heather Hall on 04-28-2024 Urea nitrogen [Mass/Vol] 20 mg/dL High 4-19 [facility] Sodium levelOrdered By: Larisa Hall on 04-28-2024 Sodium [Moles/Vol] 135 mmol/L 133-145 [facility] Total proteinOrdered By: Shamika Hall on 04-28-2024 Protein [Mass/Vol] 6.2 g/dL 5.9-8.4 [facility] White blood cell (WBC) count Ordered By: Heather Hall on 04-28-2024 WBC (Bld) [#/Vol] 6.8 10*3/uL 4.4-11.0 [facility] Low Dose CT Lung Screeningon 04-25-[address] Lung Screening [facility] Imaging Services [address] [place] [id number] Lung Screening MR#: [id number] Acct: [id number] Name: MONICA MALDONADO Rep #: [id number] : 1960 F 64 From: Beny farrell MD PCP: Dr. Summer Funez MD Status: [facility] Study: Low Dose CT Lung Screening Date of Exam: 04/25 Exam# [id number] Ordering Dr: Semaj Joseph MD PROCEDURE: LOW DOSE CT LUNG SCREENING REASON FOR EXAM: Current smoker. Patient has smoked 1 pack per day for 40 years. TECHNIQUE: Low Dose CT Lung Screening without contrast COMPARISON: Comparison is made with prior study dated April 25, 2023. FINDINGS: PULMONARY NODULES: (Only nodules >6mm are reported) Nodules described below are on series 1 unless otherwise specified. Pulmonary Nodules: There is a new 8.2 mm nodule in the posterior medial aspect of the left lung apex. This was not seen on prior study.. Stable 4 mm noncalcified nodule in the peripheral lateral aspect of the left lower lobe. Hardware:None Lymph Nodes:No mediastinal hilar or axillary lymphadenopathy. Heart and Vasculature:Normal heart size. No pericardial effusion.Thoracic aorta and pulmonary arteries have normal contours; noncontrast technique limits evaluation. Coronary Artery Calcifications: Present Lungs and Airways: Mild emphysematous changes are present. There is evidence of focal ground-glass appearance in the medial aspect of the right upper lobe. This is essentially unchanged as compared to prior study and most likely secondary to scarring. Pleura:No pleural effusion. No pneumothorax. Upper Abdomen:Visualized portions of the upper abdominal viscera are unremarkable. Bones:Degenerative changes of the thoracic spine. CT/Low Dose CT Lung Screening IMPRESSION: 1. BASED ON THE ACR LUNG RADS FOR THE MOST SUSPICIOUS NODULE (IF ANY) DESCRIBED IN THIS REPORT, THE OVERALL LUNG RADS SCORE IS 4A.4A-SUSPICIOUS. RECOMMEND 3 MONTH LDCT; PET/CT MAY BE CONSIDERED IF THERE IS A >=8MM SOLID NODULE OR SOLID COMPONENT.. 2. SMOKING CESSATION COUNSELING IS RECOMMENDED IF THE PATIENT IS STILL SMOKING. 3. OTHER SIGNIFICANT FINDINGSNone. One or more dose reduction techniques were used (e.g., Automated exposure control, adjustment of the mA and/or kV according to patient size, use of iterative reconstruction technique). The following information is provided for reference:Lung-RADS 2022 Assessment Categories. Additional information involving Lung-RADS is available at www.acr.org. 0-INCOMPLETE 1-NEGATIVE:No nodules or definitely benign nodules. Complete, central, popcorn, or centric ring calcifications OR fat containing 2-BENIGN APPEARANCE (based on imaging features or indolent behavior). Juxtapleural nodule: < 10mm AND solid; smooth margins; oval, entiform, or triangular shape Solid nodule: <6mm at baseline or new< 4mm Part solid Nodule: < 6mm total mean diameter at baseline Nonsolid nodule:(GGN) < 30mm OR >=30mm stable or slowly growing Airway nodule, subsegmental at baseline, new, or stable Category 3 nodule stable or decreased in size at 6-month follow-up CT or Category 3 or 4A nodules that resolve on follow-up OR category 4B findings proven to be benign following diagnotic work up. 3 - Probably Benign (Based on imaging features or behavior) Solid Nodule: >= 6 to <8mm at baseline OR new 4 to <6mm Part-solid nodule: >= 6mm toal mean diam. with solid component <6mm at baseline OR new < 6mm total mean diam. Non-solid nodule: GGN >= 30mm at baseline or new Atypical pulmonary cyst: Growing cystic component (mean diam.) of thick-walled cyst Category 4A nodule stable or decreased in size at 3-month follow-up CT (excl.airway). 4A - Suspicious Solid nodule: >=8 to < 15mm at baseline OR growing < 8mm OR new 6 to < 8mm Part solid nodule: >= 6mm total mean diam. w/ solid component >=6mm to < 8mm at baseline OR new or growing < 4mm solid component Airway nodule, segmental or more proximal at baseline or new Atypical pulmonary cyst: Thick-walled OR multilocular at baseline OR becomes multilocular 4B - Very Suspicious Airway nodule, segmental or more proximal, and stable or growing Solid nodule: >= 15mm at baseline OR new or growing >= 8mm Part solid nodule: Solid component >= 8mm OR new or growing >= 4mm solid component Atypical pulmonary cyst: Thick-walled with growing wall thickness/nodularity OR Growing multilocular (mean diam.) OR Multilocular with increased loculation or new/increased opacity Slow-growing solid or part solid nodule w/ growth over multiple screening exams 4X - Very Suspicious Category 3 or 4 nodules with additional features that increase the suspicion for lung cancer. S - Clinically Significant or potentially significant findings (non-lung cancer) (more 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 Normal [facility] Inital Evaluation (1) - PTon 04-10-2024 Inital Evaluation (1) - PT [facility] Physical Therapy [facility] [address] [place] [address] [address] [place] [address] / REHABILITATION SERVICES INITIAL EVALUATION MR#: [id number] Acct: [id number] Name: MONICA MALDONADO Rep #: [id number] : 1960 64 From: Zachary Tovar DPT, OCS, CSCS Referring DrRuth Ann: ILYA Antunez Status: [facility] Insurance: [employer] SELF PAY INSURANCE Patient's Visit Information Visit Information Visit Information: MONICA MALDONADO is a 64 year old F referred to Physical Therapy by Kala Cristopher, PA with a diagnosis of lumbar and cervical readiculopathy. Date of Evaluation: 04/10/24 Physical Therapist: Zachary Tovar, DPT, OCS, CSCS Visit Plan Frequency: 2x /Week Duration: 4-6 Weeks Plan: 2x/week for 3-6 weeks... Pt is already in pool 3-5x/week but I am not convinced she is doing appropriate ex, please ensure that she is doing UE/postural strength and stretching HS and into upper thoracic extension, please make sure that she is working hard enough to increase strength adn progressions. 3 weeks in the pool then consider gym/HEP for the second three weeks as needed. focus LB and thoracic ext adn strength of these muscles. Stretch neck scalenes adn UT. Subjective Subjective: Neck pain started a month ago out of nowhere. Hand numbness and up to elbow B lasting half the day. No neck pain really. Previously exercises helped and travel pillow under neck. Morning is present and if walks alot, otherwise is OK. LB also hurts and started on adn off for the last year. Dr. Sweeney injects her and it really helps. No longer allowed to take tyelnol or ibuprofen. Takes tramadol. Not sure why it flared up eearlier this year for no reason. It is back pain and leg pain posterior up top and knees. Saw Dr. Frankel on 04/01/24(Kala) but no meds or exercises given. On gabapentin 3x/day which does not help much. Dr. Sweeney injections helped 70%. pain is now 3/10 in legs and LB and was 8/10. Sleep was interrupted but much better since injection. 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 Bewtter last couple days. Home activities: hard to walk very far. No regular exercises. Basic ADLs are getting done. Hobbies: hindu activities have come to a halt(meal prep) Does pool exercises each morning, stretching carefully right now , usually 5 days per week but no only 3 days per week. Pain LB: Pain Intensity (Out of 10): 0 Pain Intensity Range: 1 and 8 arms numb: Pain Intensity (Out of 10): 0 Pain Intensity Range: 0 and 3 Objective Objective: Walks into PT I today without pain or numbness. Trasnfer chair with UE I. Steps recirpocal with one rail, I no pain. Bed trasnfer is I today. Posture is forward head and protracted scap, some structural kyphosis lower cervical and upper thoracic spine, very stiff in upper thoracic. Overall cervical AROM 50 ext, 70 B rotation adn 20 B SB. tightness in scalenes and UT, Pain with extension centrally. No causing numbness. LB AROM is min deficits in SB and flexion and max in extension with pain only in extension. HS max tight at -40 90/90 test. - SLR, - slump, - c/s compression test. Unsatble in pevic stabilizers with LE testing. weak in core at 3 abs and 3- extension. reflexes 1/3 bi adn tri and patella and achilles Sensation UE and LE WNL to gross light touch today B. strength hip flexion 3 B, abd 3-, ext 3- with instability in spine with testing. kneee flexion adn ext are 4- with L knee pain with ext. ankles are 4/5 B. UE strength is 4- in shoulder flexion and bi and tri and thumb ext and wrist without myotoma problems. Balance/Special Test Scores Oswestry Low Back Score: 10 Goals Goal 1:: I appropriate pool based aggressive strength and postural and cervical and core and LE strenght program with progressions. Goal Time Frame: 2-4 Weeks Goal 2:: Patient continue to be painfree at rest and 90% better in overall arm numbness Goal Time Frame: 4-6 Weeks Goal 3:: back oswestry score 6 or better Goal Time Frame: 4-6 Weeks Goal 4:: Progress to home/gym ex to help maintain ROM, posture and core strength to ease in recurrence Goal Time Frame: 4-6 Weeks Goal 5:: Pt feel exit bed without stiffneess or numbness in UE Goal Time Frame: 4-6 Weeks Rehabilitation Potential Physical Therapy Diagnosis: stiffneess and loss ROM and weakness leading to back and neck flares and limiting function. Rehabilitation Potential: Fair Anticipated Interventions Patient/Client Instruction: Educate patient on: Condition and Plan of Care For the Purpose of:: To decrease pain, To increase ROM, To improve nutrient delivery to tissue, To improve muscle performance and motor function, To increase tolerance to activity/condition/positio n and To improve ability of physical actions for home/community/work/leisur e Therapeutic Exercise to Include: Strength training, Po (more 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 Normal [facility] L/S Spine w Bend Min 6 Vwon 04-07-2024 L/S Spine w Bend Min 6 Vw [facility] Imaging Services [address] [place] [address] L/S Spine w Bend Min 6 Vw MR#: [id number] Acct: [id number] Name: MONICA MALDONADO Rep #: [id number] : 1960 F 64 From: Faizan Wilson MD PCP: Dr. Summer Funez MD Status: [facility] Study: L/S Spine w Bend Min 6 Vw Date of Exam: Exam# [id number] Ordering Dr: Rj Bravo MD Fluoroscopic guidance was used intraoperatively. Please refer to the operative note for further details. Total images is 6. Total radiation dose 5.84 mGy. Total fluoroscopy time 8.2nd. Reading Location: [facility] CC: Dr. Summer Funez MD; Dr. Rj Bravo MD Director Medical Writing: Signed [facility] MR/POSTOP.[facility] 04-07-2024 MR/POSTOP.[facility] Medical Records Department [address] [place] [address] Anesthesia Postop Eval I 04/07/24 0849 MR#: [id number] Acct: [id number] Name: MONICA MALDONADO Rep #: [id number] : 1960 64 From: Yifan Ramírez CRNA PCP: Dr. Summer Funez MD Status:[facility] Y Race: C Location: [place] [address] Anesthesia: Postop Eval I Current Vital Signs Temperature: 98.3 F Pulse Rate: 83 Blood Pressure: 99/70 Respiratory Rate: 16 Pulse Ox: 95 Assessment Airway patent: Yes Spontaneous unlabored respirations: Yes nausea: No Vomiting: No Anesthesia Complication: No Fluid Hydration Crystalloid volume administer (ml): 30 Total IV fluid infused: 30 Progress Note Anesthesia document: Postop Eval 1 completed: Yes 04/07/24 0850 Date Yifan Ramírez RESTORATION ECOLOGIST Cosigner Signature: Date CC: Signed Normal [facility] MR/[id number] 04-07-2024 MR/POSTOPAN2 [facility] Medical Records Department [address] [place] [address] Anesthesia Postop Eval II 04/07/24 09 MR#: [id number] Acct: [id number] Name: MONICA MALDONADO Rep #: [id number] : 1960 64 From: Luis Enrique Ramirez MD PCP: Dr. Summer Funez MD Status:REG [facility] Y Race: C Location: [place] [address] Anesthesia Postop Eval I Sum Postop Eval Completion status Anesthesia document: Postop Eval 1 completed: Yes Anesthesia Postop Eval I Summary Anesthesia Postop Eval I Summary: Anesthesia Postop Eval I: Assessment Summary Airway patent Yes 04/07/24 08:49 RESTORATION [email or web address].[email or web address] Spontaneous unlabored Yes 04/07/24 08:49 RESTORATION ECOLOGIST.TNES respirations Mental status nausea No 04/07/24 08:49 RESTORATION [email or web address].TNES Vomiting No 04/07/24 08:49 RESTORATION [email or web address].TNES Anesthesia Postop Eval I: Fluid Summary Crystalloid volume administer 30 04/07/24 08:49 RESTORATION ECOLOGIST.TNES (ml) Colloids volume administered ( ml) Blood Product volume administered (ml) Total IV fluid infused 30 04/07/24 08:49 RESTORATION [email or web address].TNES Anesthesia Postop Eval I: Summary Notes Anesthesia Complication No 04/07/24 08:49 RESTORATION [email or web address].TNES Anesthesia Complication Comment: Post-operative progress note Anesthesia: Postop Eval II Evaluation Mental status: Awake Pain Level: 1 nausea: No Vomiting: No 04/07/24 09 Date Luis Enrique Hancock Signature: Date CC: Signed Normal [facility] Operative Reporton 5 Operative Report [facility] Medical Records Department [address] [place] [address] Operative Report 04/07/24 0847 MR#: [id number] Acct: [id number] Name: MONICA MALDONADO Rep #: [id number] : 1960 64 From: Rj Bravo MD PCP: Dr. Summer Funez MD Status:REG [facility] Location: [place] [address] Operative Report (Standard) Operative Information Date of Procedure: 04/07/24 Pre-Operative Diagnosis: 1 Post-Operative Diagnosis: 1 Surgery/Procedure Performed: 1 gravity prospecting supervisor: No Type of Anesthesia: Local MAC RN Documented Start/Stop Times: Operation Date: 04/07/24 09:00 Case Time Into Pre-Op 04/07/24 07:41 Out of Pre-Op 04/07/24 08:21 Anesthesia Start 04/07/24 08:31 Into Room 04/07/24 08:31 Procedure Start 04/07/24 08:37 Procedure End 04/07/24 08:41 Anesthesia End 04/07/24 08:44 Out of Room 04/07/24 08:44 Procedure Start Time: 08:47 Procedure Stop Time: 08:47 Select all DRAINS/GRAFTS/IMPLANTS that apply: None Estimated Blood Loss: 0 Specimen collected: No Description of surgery: Pre-Operative Diagnosis: Lumbosacral spondylosis, lumbosacral degenerative disc disease, lumbar facet arthropathy Post-Operative Diagnosis: Lumbosacral spondylosis, lumbosacral degenerative disc disease, lumbar facet arthropathy PROCEDURE PERFORMED: Bilateral lumbar medial branch block at, L4, L5, and S1. ANESTHESIA: MAC. BLOOD LOSS: Minimal. COMPLICATIONS: None. DESCRIPTION OF PROCEDURE: History and physical of today was reviewed. Risks and benefits of the procedure were explained. The patient understood and agreed to proceed. Informed consent was obtained. IV inserted per routine protocol. The patient was taken to the operating room and placed in the prone position with a pillow positioned underneath the abdomen. The lower back area was prepped and draped in a sterile fashion using iodine x3. Under fluoroscopy guidance on AP view, the L4 through S1 vertebral bodies were visualized. The skin and subcutaneous tissue was anesthetized with approximately 5 mL of 1% lidocaine using a 25-gauge regular needle. Under direct visualization with fluoroscopy, at approximately 25-degree angle, starting on the left L4, ending on the right L4, passing through the L5 and S1 bilaterally, using a 22-gauge 3-1/2-inch spinal needle, the needle was advanced via the skin. The tip of the needle was maneuvered and directed towards the superior medial gutter of the transverse process at the vicinity of the medial branch. Once tip of the needle was in contact with the bone, the needle was pulled approximately 2 mm off the bone. After negative aspiration for blood or CSF and confirmation on AP, oblique as well as lateral view, a total of 12 mL of preservative-free 0.25% Marcaine with 80 mg of Depo-Medrol was injected in divided doses between those six levels. The needles were then removed intact. The patient experienced no sign or symptoms of intrathecal or intravascular injection. The patient experienced no paresthesia. The procedure was completed without any apparent difficulty or any complications. The patient appeared to tolerate it well. ASSESSMENT AND PLAN: This is a 64-year-old female with lumbosacral spondylosis, lumbosacral degenerative disc disease, lumbar facet arthropathy status post bilateral lumbar medial branch block at L4-S1, patient will continue his current medications, patient will follow-up in approximately 2 weeks for reevaluation. Surgical Findings: none Complications Complications: No Admit VTE Documentation VTE Present on Admission: No VTE Mechan Device Prophylaxis: None VTE Pharm Prophylaxis ordered?: No 04/07/24 0848 Cosigner Signature (if applicable): CC: Dr. Summer Funez MD; Dr. Rj Bravo MD Signed [facility] Orthopedic Visit Reporton Orthopedic Visit Report [facility] [address] [place] [address] OFFICE VISIT Date of Service: 04/01/24 MR#: [id number] Acct: [id number] Name: MONICA MALDONADO Rep #: [id number] : 1960 Provider: ILYA Antunez Age/Sex: 64/F [place] [facility] Status: Signed Intake Vital Signs 01/12/24 08:31 04/01/24 11:12 Height 5 ft 5 in 5 ft 5 in Weight: 220 lb 2 oz 234 lb 6 oz BMI 36.6 38.9 BP 130/80 H Pulse 97 Temp 98.7 F Temp Source Oral Pulse Oximetry (%) 97 Oxygen Delivery Method room air Intake Visit Reasons: CERVICAL/LUMBAR SPINE Chief Complaint: Cervical and Lumbar Spine Pain Accompanied by: Self Is patient in pain?: Yes Allergies adalimumab (From Humira) Allergy (Verified 04/01/24 11:13) Rash Penicillins Allergy (Verified 04/01/24 11:13) Rash adhesive Adverse Reaction (Verified 04/01/24 11:13) Rash tramadol Adverse Reaction (Verified 04/01/24 11:13) FEELING OF CONFUSION Medications ???Medication ???Instructions ???Recorded ???Confirmed ???Type omeprazole 40 mg capsule,delayed 40 mg PO DAILY 05/18/16 04/01/24 H istory release abatacept 50 mg/0.4 mL 50 mg subcut QWEEK 12/10/20 History subcutaneous syringe (Orencia) mirabegron 25 mg tablet,extended 25 mg PO DAILY 12/21/20 04/01/24 H istory release 24 hr (Myrbetriq) albuterol sulfate 2.5 mg/3 mL 2.5 mg (3 mL) inhalation Q6H PRN 0 04/26/21 04/01/24 Rx (0.083 %) solution for nebulization Wheezing #180 mL fluticasone fur. 100 mcg-umeclid 1 inh inhalation DAILY #3 ea 05/0604/01/24 Rx 62.5 mcg-vilant 25 mcg inhalat.powder (Trelegy Ellipta) cholecalciferol (vitamin D3) 25 25 mcg PO DAILY 05/09/23 04/01/24 History mcg (1,000 unit) capsule Held on 07/31/23. Instructions: HOLDS FOR SUMMER, RESTARTS IN FALL fluoxetine 10 mg capsule 10 mg PO DAILY 05/09/23 04/01/24 H istory hydroxychloroquine 200 mg tablet 200 mg PO BID 05/09/23 04/01/24 Hi story (Plaquenil) magnesium 250 mg tablet 250 mg PO DAILY 05/09/23 04/01/24 History trazodone 50 mg tablet 50 mg PO QHS 05/09/23 04/01/24 His tory leflunomide 20 mg tablet 20 mg PO DAILY 06/07/23 04/01/24 H istory albuterol sulfate 90 mcg/actuation 1 - 2 puff inhalation Q6H PRN MN N 08/30/23 04/01/24 Rx aerosol inhaler Sob /Or Wheezing #18 grams gabapentin 100 mg capsule 100 mg PO TID PRN pain 12/29/23 History (Neurontin) mecobalamin (vitamin B12) 5,000 mcg PO 04/01/24 04/01/24 History mcg disintegrating tablet PFSH Medical History Fatty (change of) liver, not elsewhere classified Body mass index [BMI] 40.0-44.9, adult Insomnia, unspecified Congestion of respiratory tract Wheezing Overactive bladder Hypokalemia Nicotine dependence, cigarettes, uncomplicated Hyperglycemia, unspecified Dizziness Nausea with vomiting, unspecified Tremor, unspecified Benign paroxysmal positional vertigo Unspecified abdominal pain Diarrhea Dysuria Wears glasses Anxiety Alcohol use History of steroid therapy Kidney stone High cholesterol Restless legs History of hiatal hernia Smoker CPAP (continuous positive airway pressure) dependence Sleep apnea COPD (chronic obstructive pulmonary disease) Shortness of breath on exertion Chronic cough History of pain when walking History of edema History of stress test Incontinence Depression Limb weakness Tobacco abuse Hyperlipidemia GERD (gastroesophageal reflux disease) Allergic rhinitis COPD (chronic obstructive pulmonary disease) Cervicalgia Cervical radiculopathy Rotator cuff syndrome Segmental and somatic dysfunction of thoracic region Acute maxillary sinusitis Bursitis of right shoulder Bicipital tendinitis of right shoulder Family history of alcoholism TAMRA (obstructive sleep apnea) Rheumatoid arthritis Spontaneous rupture of extensor tendons, right forearm Segmental and somatic dysfunction of lumbar region Surgical History Hx of surgical procedure History of esophagogastroduodenoscopy (EGD) Hx of colonoscopy h/o trigger finger release History of surgery on arm History of laparoscopic cholecystectomy History of appendectomy Family History Mother COPD (chronic obstructive pulmonary disease) Heart disease Osteoarthritis TAMRA (obstructive sleep apnea) Hypertension Father Cancer throat Abuse, drug or alcohol Brother Abuse, drug or alcohol Allergies Grandmother Allergies Hypertension Heart disease Social History Smoking Status: Current every day smoker tobacco type: cigarettes T (more 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 [facility] Cerv Spine 4 or 5 Viewson Cerv Spine 4 or 5 Views [facility] Imaging Services [address] [place], [place] [address] Cerv Spine 4 or 5 Views MR#: [id number] Acct: [id number] Name: MONICA MALDONADO Rep #: [id number] : 1960 F 64 From: Дмитрий Boswell DO PCP: Dr. Summer Funez MD Status: REG CLI Study: Cerv Spine 4 or 5 Views Date of Exam: 03/26/24 Exam# [id number] Ordering Dr: Kala Nicholas PROCEDURE: CERV SPINE 4 OR 5 VIEWS REASON FOR EXAM: Pain. TECHNIQUE: 5 views of the cervical spine. COMPARISON: None. FINDINGS: Cervical vertebral bodies maintain a normal height. There is mild levoscoliosis of the cervical spine. Multilevel degenerative changes are present with disc space narrowing and endplate spurring greatest from C4-C7. No acute fracture or subluxation is present. There is mild retrolisthesis of C4-C5 and C5-C6. Prevertebral soft tissues are unremarkable. Atlantodental interval is intact. Odontoid process is intact. Lateral masses align. RAD/Cerv Spine 4 or 5 Views IMPRESSION: 1. No acute osseous abnormality. 2. Multilevel degenerative changes. If clinical concern for radiculopathy, MRI is a more sensitive exam. Reading Location: [facility] CC: ILYA Antunez; Dr. Summer Funez MD Director Medical Writing: Signed [facility] L/S Spine Min 4 Viewson L/S Spine Min 4 Views [facility] Imaging Services [address] [place] [address] L/S Spine Min 4 Views MR#: [id number] Acct: [id number] Name: MONICA MALDONADO Rep #: [id number] : 1960 F 64 From: Sanchez Daugherty PCP: Dr. Summer Funez MD Status: REG CLI Study: L/S Spine Min 4 Views Date of Exam: 03/26/24 Exam# [id number] Ordering Dr: Kala Nicholas PROCEDURE: Lumbar spine radiographs REASON FOR EXAM: Pain TECHNIQUE: 4 views of the lumbar spine COMPARISON: None FINDINGS: See impression RAD/L/S Spine Min 4 Views IMPRESSION: Mild/moderate dextroscoliosis. Degenerative grade 1 anterolisthesis of L5-S1. Grade 1 retrolisthesis of L2-L3 and L3-L4. [id number] multilevel disc space narrowing, greatest at L3-L4 and L5-S1. Rcgm-dw-[id number] multilevel facet arthropathy, greatest from L3 through L5. Mild degenerative changes of the sacroiliac joints. Reading Location: [facility] CC: ILYA Antunez; Dr. Summer Funez MD Director Medical Writing: Signed [facility] Chest PA and Lateralon 01-24 Chest PA and Lateral [facility] Imaging Services [address] [place] [address] Chest PA and Lateral MR#: [id number] Acct: [id number] Name: MONICA MALDONADO Rep #: [id number] : 1960 F 63 From: Abimael Ochoa MD PCP: Dr. Summer Funez MD Status: REG CLI Study: Chest PA and Lateral Date of Exam: 01/25/24 Exam# [id number] Ordering Dr: Summer Funez MD [id number] EXAM: XR CHEST, 2 VIEWS CLINICAL INDICATION: cough TECHNIQUE: Frontal and lateral views of the chest. COMPARISON: 03/28/2022 FINDINGS: LUNGS AND PLEURAL SPACES: Unremarkable. No consolidation or edema. No pneumothorax. No effusion. HEART: Unremarkable. Cardiac silhouette not enlarged. MEDIASTINUM: Central airways and mediastinal contour are unremarkable. BONES/JOINTS: Unremarkable. No acute fracture. SOFT TISSUES: Unremarkable. RAD/Chest PA and Lateral IMPRESSION: No radiographic evidence of acute cardiopulmonary disease. Electronically Signed: Abimael Ochoa MD at 18:02 EST , CC: Dr. Summer Funez MD Director Medical Writing: Signed [facility] Office Visit Reporton 2023 Office Visit Report [facility] [address] [place] [address] OFFICE VISIT Date of Service: 01/12/24 MR#: [id number] Acct: [id number] Patient: MONICA MALDONADO Rep #: [id number] : 1960 Provider: ILYA Bella Age/Sex: 63/F [place] [facility] Status: Signed Intake Vital Signs 01/07/24 06:03 01/12/24 08:31 Height 1.65 m 1.65 m Weight: 99.847 kg BMI 36.6 BP 130/80 H Pulse 97 Temp 98.7 F Temp Source Oral Pulse Oximetry (%) 97 Oxygen Delivery Method room air Intake Visit Reasons: CONGESTION/EAR PAIN Chief Complaint: sinus pressure Accompanied by: Self Allergies adalimumab (From Humira) Allergy (Verified 01/12/24 08:32) Rash Penicillins Allergy (Verified 01/12/24 08:32) Rash adhesive Adverse Reaction (Verified 01/12/24 08:32) Rash tramadol Adverse Reaction (Verified 01/12/24 08:32) FEELING OF CONFUSION Medications ???Medication ???Instructions ???Recorded ???Confirmed ???Type omeprazole 40 mg capsule,delayed 40 mg PO DAILY 05/18/16 01/12/24 History release abatacept 50 mg/0.4 mL 50 mg subcut QWEEK 12/10/20 01/12/24 History subcutaneous syringe (Orencia) mirabegron 25 mg tablet,extended 25 mg PO DAILY 12/21/20 01/12/24 History release 24 hr (Myrbetriq) albuterol sulfate 2.5 mg/3 mL 2.5 mg (3 mL) inhalation Q6H PRN 04/26/21 01/12/24 Rx (0.083 %) solution for nebulization Wheezing #180 mL fluticasone fur. 100 mcg-umeclid 1 inh inhalation DAILY #3 ea 05/07/23 01/12/24 Rx 62.5 mcg-vilant 25 mcg inhalat.powder (Trelegy Ellipta) cholecalciferol (vitamin D3) 25 25 mcg PO DAILY 05/09/23 01/12/24 History mcg (1,000 unit) capsule fluoxetine 10 mg capsule 10 mg PO DAILY 05/09/23 01/12/24 History hydroxychloroquine 200 mg tablet 200 mg PO BID 05/09/23 01/12/24 History (Plaquenil) magnesium 250 mg tablet 250 mg PO DAILY 05/09/23 01/12/24 History trazodone 50 mg tablet 50 mg PO QHS 05/09/23 01/12/24 History leflunomide 20 mg tablet 20 mg PO DAILY 06/07/23 01/12/24 History potassium citrate 10 mEq (1,080 10 meq PO DAILY 06/07/23 01/12/24 History mg) tablet,extended release albuterol sulfate 90 mcg/actuation 1 - 2 puff inhalation Q6H PRN PRN 08/30/23 01/12/24 Rx aerosol inhaler Sob /Or Wheezing #18 grams gabapentin 100 mg capsule 100 mg PO TID PRN pain 12/29/23 01/12/24 History (Neurontin) cefdinir 300 mg capsule 300 mg PO BID #14 caps 01/12/24 01/12/24 Rx Nurse's Note: Patient here for congestion and sinus pressure in her left side of face. Patient left ear is clogged. Patient was here 3 weeks ago and was placed on a [facility] Medical History Fatty (change of) liver, not elsewhere classified Body mass index [BMI] 40.0-44.9, adult Insomnia, unspecified Congestion of respiratory tract Wheezing Overactive bladder Hypokalemia Nicotine dependence, cigarettes, uncomplicated Hyperglycemia, unspecified Dizziness Nausea with vomiting, unspecified Tremor, unspecified Benign paroxysmal positional vertigo Unspecified abdominal pain Diarrhea Dysuria Wears glasses Anxiety Alcohol use History of steroid therapy Kidney stone High cholesterol Restless legs History of hiatal hernia Smoker CPAP (continuous positive airway pressure) dependence Sleep apnea COPD (chronic obstructive pulmonary disease) Shortness of breath on exertion Chronic cough History of pain when walking History of edema History of stress test Incontinence Depression Limb weakness Tobacco abuse Hyperlipidemia GERD (gastroesophageal reflux disease) Allergic rhinitis COPD (chronic obstructive pulmonary disease) Cervicalgia Cervical radiculopathy Rotator cuff syndrome Segmental and somatic dysfunction of thoracic region Acute maxillary sinusitis Bursitis of right shoulder Bicipital tendinitis of right shoulder Family history of alcoholism TAMRA (obstructive sleep apnea) Rheumatoid arthritis Spontaneous rupture of extensor tendons, right forearm Segmental and somatic dysfunction of lumbar region Surgical History Hx of surgical procedure History of esophagogastroduodenoscopy (EGD) Hx of colonoscopy h/o trigger finger release History of surgery on arm History of laparoscopic cholecystectomy History of appendectomy Family History Mother COPD (chronic obstructive pulmonary disease) Heart disease Osteoarthritis TAMRA (obstructive sleep apnea) Hypertension Father Cancer throat Abuse, drug or alcohol Brother Abuse, drug or alcohol Allergies Grandmother Allergies Hypertension Heart disease Social History Smoking Status: Current every day smoker tobacco type: cigar (more 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 [facility] L/S Spine Min 4 Views12-20 L/S Spine Min 4 Views [facility] Imaging Services [address] [place], [place] [id number] L/S Spine Min 4 Views MR#: [id number] Acct: [id number] Name: MONICA MALDONADO Rep #: [id number] : 1960 F 63 From: Beny farrell MD PCP: Dr. Summer Funez MD Status: DEP SDC Study: L/S Spine Min 4 Views Date of Exam: 01/07/24 Exam# [id number] Ordering Dr: Rj Bravo MD [id number] PROCEDURE: Bilateral L4-L5 and L5-S1 medial branch nerve block. DATE OF EXAMINATION: January 07, 2024. INDICATION: Female, 63 years old. Chronic low back pain. FLUOROSCOPY TIME (if supplied): (24 seconds) minutes/seconds. 18.73 mGy. 6 images were submitted. RAD/L/S Spine Min 4 Views IMPRESSION: Fluoroscopic service was provided for bilateral L4-L5 and L5-S1 medial branch nerve block. Electronically Signed: Beny Schwab MD at 12:39 EST Reading Location ID and State: [facility] / [place] , Service support , CC: Dr. Summer Funez MD; Dr. Rj Bravo MD Director Medical Writing: Signed [facility] MR/POSTOP.[facility] 01-07-2024 MR/POSTOP.[facility] Medical Records Department [address] [place] [address] Anesthesia Postop Eval I 01/07/24 0747 MR#: [id number] Acct: [id number] Name: MONICA MALDONADO Rep #: [id number] : 1960 63 From: Julieta Kevin PCP: Dr. Summer Funez MD Status:REG [facility] [place] Y Race: C Location: [address] Anesthesia: Postop Eval I Current Vital Signs Temperature: 99.4 F Pulse Rate: 96 Blood Pressure: 152/80 Respiratory Rate: 18 Pulse Ox: 94 Assessment Airway patent: Yes Spontaneous unlabored respirations: Yes nausea: No Vomiting: No Anesthesia Complication: No Fluid Hydration Crystalloid volume administer (ml): 0 Total IV fluid infused: 0 Progress Note Anesthesia document: Postop Eval 1 completed: Yes 01/07/24 07 Date Julieta Hancock Signature: Date CC: Signed [facility] MR/[id number] 01-07-2024 MR/POSTOPAN2 [facility] Medical Records Department [address] [place] [address] Anesthesia Postop Eval II 01/07/24 1017 MR#: [id number] Acct: [id number] Name: MONICA MALDONADO Rep #: [id number] : 1960 63 From: Luis Enrique Ramirez MD PCP: Dr. Summer Funez MD Status:[facility] Y Race: C Location: [facility] [place] Anesthesia Postop Eval I Sum Postop Eval Completion status Anesthesia document: Postop Eval 1 completed: Yes Anesthesia Postop Eval I Summary Anesthesia Postop Eval I Summary: Anesthesia Postop Eval I: Assessment Summary Airway patent Yes 01/07/24 07:47 RESTORATION ECOLOGIST.CSIR Spontaneous unlabored Yes 01/07/24 07:47 RESTORATION ECOLOGIST.CSIR respirations Mental status nausea No 01/07/24 07:47 RESTORATION ECOLOGIST.CSIR Vomiting No 01/07/24 07:47 RESTORATION ECOLOGIST.CSIR Anesthesia Postop Eval I: Fluid Summary Crystalloid volume administer 0 01/07/24 07:47 RESTORATION ECOLOGIST.CSIR (ml) Colloids volume administered ( ml) Blood Product volume administered (ml) Total IV fluid infused 0 01/07/24 07:47 RESTORATION ECOLOGIST.CSIR Anesthesia Postop Eval I: Summary Notes Anesthesia Complication No 01/07/24 07:47 RESTORATION ECOLOGIST.CSIR Anesthesia Complication Comment: Post-operative progress note Anesthesia: Postop Eval II Evaluation Mental status: Awake Pain Level: 2 nausea: No Vomiting: No 01/07/24 1018 Date Luis Enrique Hancock Signature: Date CC: Signed [facility] Operative Reporton 4 Operative Report [facility] Medical Records Department [address] [place] [address] Operative Report 01/07/24 0804 MR#: [id number] Acct: [id number] Name: MONICA MALDONADO Rep #: [id number] : 1960 63 From: Rj Bravo MD PCP: Dr. Summer Funez MD Status:[facility] Location: [place] [address] Operative Report (Standard) Operative Information Surgery/Procedure Performed: Bilateral lumbar medial branch block at, L4, L5, and S1. Surgeon: Rj Bravo Date of Procedure: 01/07/24 Procedure Start Time: 08:08 Procedure Stop Time: 08:08 Pre-Operative Diagnosis: Lumbosacral spondylosis, lumbosacral degenerative disc disease, lumbar facet arthropathy Post-Operative Diagnosis: Lumbosacral spondylosis, lumbosacral degenerative disc disease, lumbar facet arthropathy Select all DRAINS/GRAFTS/IMPLANTS that apply: None Type of Anesthesia: Local MAC Estimated Blood Loss: 1 cc Specimen collected: No Description of surgery: Pre-Operative Diagnosis: Lumbosacral spondylosis, lumbosacral degenerative disc disease, lumbar facet arthropathy Post-Operative Diagnosis: Lumbosacral spondylosis, lumbosacral degenerative disc disease, lumbar facet arthropathy PROCEDURE PERFORMED: Bilateral lumbar medial branch block at, L4, L5, and S1. ANESTHESIA: MAC. BLOOD LOSS: Minimal. COMPLICATIONS: None. DESCRIPTION OF PROCEDURE: History and physical of today was reviewed. Risks and benefits of the procedure were explained. The patient understood and agreed to proceed. Informed consent was obtained. IV inserted per routine protocol. The patient was taken to the operating room and placed in the prone position with a pillow positioned underneath the abdomen. The lower back area was prepped and draped in a sterile fashion using iodine x3. Under fluoroscopy guidance on AP view, the L4 through S1 vertebral bodies were visualized. The skin and subcutaneous tissue was anesthetized with approximately 5 mL of 1% lidocaine using a 25-gauge regular needle. Under direct visualization with fluoroscopy, at approximately 25-degree angle, starting on the left L4, ending on the right L4, passing through the L5 and S1 bilaterally, using a 22-gauge 3-1/2-inch spinal needle, the needle was advanced via the skin. The tip of the needle was maneuvered and directed towards the superior medial gutter of the transverse process at the vicinity of the medial branch. Once tip of the needle was in contact with the bone, the needle was pulled approximately 2 mm off the bone. After negative aspiration for blood or CSF and confirmation on AP, oblique as well as lateral view, a total of 12 mL of preservative-free 0.25% Marcaine with 80 mg of Depo-Medrol was injected in divided doses between those six levels. The needles were then removed intact. The patient experienced no sign or symptoms of intrathecal or intravascular injection. The patient experienced no paresthesia. The procedure was completed without any apparent difficulty or any complications. The patient appeared to tolerate it well. ASSESSMENT AND PLAN: This is a 63-year-old female with lumbosacral spondylosis, lumbosacral degenerative disc disease, lumbar facet arthropathy status post bilateral lumbar medial branch block at L4-S1, patient will continue his current medications, patient will follow-up in approximately 2 weeks for reevaluation. 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 Summer Funez MD; Dr. Rj Bravo MD Signed [facility] Urgent Care Visit Reporton 1 02-27-2023 Urgent Care Visit Report [facility] [address], [address] [place] [address] OFFICE VISIT Date of Service: 12/29/23 MR#: [id number] Acct: [id number] Name: MONICA MALDONADO Rep #: [id number] : 1960 Provider: ILYA Marinelli Age/Sex: 63/F Location: [facility] Status: Signed Intake Vital Signs 12/05/23 10:01 12/29/23 09:23 Height 5 ft 5 in 5 ft 5 in Weight: 221 lb 4 oz 225 lb BMI 36.8 37.4 BP 132/84 H Blood Pressure Location Lt brachial Position Sitting Respiration 20 H Pulse 78 Pulse Source Monitor Temp 98.2 F Temp Source Temporal Pulse Oximetry (%) 98 Oxygen Delivery Method room air Intake Visit Reasons: ST/BA/SINUS CONGESTION/PRESSURE Robot Technician Required: No Is patient in pain?: No Allergies adalimumab (From Humira) Allergy (Verified 12/29/23 09:21) Rash Penicillins Allergy (Verified 12/29/23 09:21) Rash adhesive Adverse Reaction (Verified 12/29/23 09:21) Rash tramadol Adverse Reaction (Verified 12/29/23 09:21) FEELING OF CONFUSION Medications ???Medication ???Instructions ???Recorded ???Confirmed ???Type omeprazole 40 mg capsule,delayed 40 mg PO DAILY 05/18/16 12/29/23 History release abatacept 50 mg/0.4 mL 50 mg subcut QWEEK 12/10/20 12/29/23 History subcutaneous syringe (Orencia) mirabegron 25 mg tablet,extended 25 mg PO DAILY 12/21/20 12/29/23 History release 24 hr (Myrbetriq) albuterol sulfate 2.5 mg/3 mL 2.5 mg (3 mL) inhalation Q6H PRN 04/26/21 12/29/23 Rx (0.083 %) solution for nebulization Wheezing #180 mL fluticasone fur. 100 mcg-umeclid 1 inh inhalation DAILY #3 ea 05/07/23 12/29/23 Rx 62.5 mcg-vilant 25 mcg inhalat.powder (Trelegy Ellipta) cholecalciferol (vitamin D3) 25 25 mcg PO DAILY 05/09/23 12/29/23 History mcg (1,000 unit) capsule fluoxetine 10 mg capsule 10 mg PO DAILY 05/09/23 12/29/23 History hydroxychloroquine 200 mg tablet 200 mg PO BID 05/09/23 12/29/23 History (Plaquenil) magnesium 250 mg tablet 250 mg PO DAILY 05/09/23 12/29/23 History trazodone 50 mg tablet 50 mg PO QHS 05/09/23 12/29/23 History leflunomide 20 mg tablet 20 mg PO DAILY 06/07/23 12/29/23 History potassium citrate 10 mEq (1,080 10 meq PO DAILY 06/07/23 12/29/23 History mg) tablet,extended release albuterol sulfate 90 mcg/actuation 1 - 2 puff inhalation Q6H PRN PRN 08/30/23 12/29/23 Rx aerosol inhaler Sob /Or Wheezing #18 grams azithromycin 250 mg tablet See Rx Instructions PO .COMPLEX #6 12/29/23 12/29/23 Rx tabs gabapentin 100 mg capsule 100 mg PO TID PRN 12/29/23 12/29/23 History (Neurontin) prednisone 20 mg tablet 20 mg PO BID 5 days #10 tabs 12/29/23 12/29/23 Rx Nurse's Note: States yesterday she started w/ a sore throat. During night she started w/ sob, chills, and body aches. Took Tylenol last night. Is a [employer] employee. [facility] Medical History Fatty (change of) liver, not elsewhere classified Body mass index [BMI] 40.0-44.9, adult Insomnia, unspecified Congestion of respiratory tract Wheezing Overactive bladder Hypokalemia Nicotine dependence, cigarettes, uncomplicated Hyperglycemia, unspecified Dizziness Nausea with vomiting, unspecified Tremor, unspecified Benign paroxysmal positional vertigo Unspecified abdominal pain Diarrhea Dysuria Wears glasses Anxiety Alcohol use History of steroid therapy Kidney stone High cholesterol Restless legs History of hiatal hernia Smoker CPAP (continuous positive airway pressure) dependence Sleep apnea COPD (chronic obstructive pulmonary disease) Shortness of breath on exertion Chronic cough History of pain when walking History of edema History of stress test Incontinence Depression Limb weakness Tobacco abuse Hyperlipidemia GERD (gastroesophageal reflux disease) Allergic rhinitis COPD (chronic obstructive pulmonary disease) Cervicalgia Cervical radiculopathy Rotator cuff syndrome Segmental and somatic dysfunction of thoracic region Acute maxillary sinusitis Bursitis of right shoulder Bicipital tendinitis of right shoulder Family history of alcoholism TAMRA (obstructive sleep apnea) Rheumatoid arthritis Spontaneous rupture of extensor tendons, right forearm Segmental and somatic dysfunction of lumbar region Surgical History Hx of surgical procedure History of esophagogastroduodenoscopy (EGD) Hx of colonoscopy h/o trigger finger release History of surgery on arm History of laparoscopic cholecystectomy History of appendectomy Family History Mother COPD (chronic obstructive pulmonary disease) Heart disease Osteoarthritis TAMRA (obstructive sl (more 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 Normal [facility] Orthopedic Visit Reporton Orthopedic Visit Report [facility] [address] [place] [address] 5 [place] [address] OFFICE VISIT Date of Service: 12/05/23 MR#: [id number] Acct: [id number] Name: MONICA MALDONADO Rep #: [id number] : 1960 Provider: Dr. Walter randle DO Age/Sex: 63/F Location[facility] Status: Signed Intake Vital Signs 08/06/23 10:23 11/21/23 10:09 12/05/23 10:01 Height 5 ft 5 in 5 ft 5 in 5 ft 5 in Weight: 221 lb 4 oz BMI 36.8 Intake Visit Reasons: RIGHT HAND Accompanied by: Self Is patient in pain?: Yes Pain scale (1-10): 3 Allergies adalimumab (From Humira) Allergy (Verified 12/05/23 10:02) Rash Penicillins Allergy (Verified 12/05/23 10:02) Rash adhesive Adverse Reaction (Verified 12/05/23 10:02) Rash tramadol Adverse Reaction (Verified 12/05/23 10:02) FEELING OF CONFUSION Medications ???Medication ???Instructions ???Recorded ???Confirmed ???Type omeprazole 40 mg capsule,delayed 40 mg PO DAILY 05/18/16 12/05/23 History release abatacept 50 mg/0.4 mL 50 mg subcut QWEEK 12/10/20 12/05/23 History subcutaneous syringe (Orencia) mirabegron 25 mg tablet,extended 25 mg PO DAILY 12/21/20 12/05/23 History release 24 hr (Myrbetriq) albuterol sulfate 2.5 mg/3 mL 2.5 mg (3 mL) inhalation Q6H PRN 04/26/21 12/05/23 Rx (0.083 %) solution for nebulization Wheezing #180 mL fluticasone fur. 100 mcg-umeclid 1 inh inhalation DAILY #3 ea 05/07/23 12/05/23 Rx 62.5 mcg-vilant 25 mcg inhalat.powder (Trelegy Ellipta) cholecalciferol (vitamin D3) 25 25 mcg PO DAILY 05/09/23 12/05/23 History mcg (1,000 unit) capsule fluoxetine 10 mg capsule 10 mg PO DAILY 05/09/23 12/05/23 History gabapentin 100 mg capsule 100 mg PO TID 05/09/23 12/05/23 History (Neurontin) hydroxychloroquine 200 mg tablet 200 mg PO BID 05/09/23 12/05/23 History (Plaquenil) magnesium 250 mg tablet 250 mg PO DAILY 05/09/23 12/05/23 History trazodone 50 mg tablet 50 mg PO QHS 05/09/23 12/05/23 History leflunomide 20 mg tablet 20 mg PO DAILY 06/07/23 12/05/23 History potassium citrate 10 mEq (1,080 10 meq PO DAILY 06/07/23 12/05/23 History mg) tablet,extended release albuterol sulfate 90 mcg/actuation 1 - 2 puff inhalation Q6H PRN PRN 08/30/23 12/05/23 Rx aerosol inhaler Sob /Or Wheezing #18 grams PFSH Medical History Fatty (change of) liver, not elsewhere classified Body mass index [BMI] 40.0-44.9, adult Insomnia, unspecified Congestion of respiratory tract Wheezing Overactive bladder Hypokalemia Nicotine dependence, cigarettes, uncomplicated Hyperglycemia, unspecified Dizziness Nausea with vomiting, unspecified Tremor, unspecified Benign paroxysmal positional vertigo Unspecified abdominal pain Diarrhea Dysuria Wears glasses Anxiety Alcohol use History of steroid therapy Kidney stone High cholesterol Restless legs History of hiatal hernia Smoker CPAP (continuous positive airway pressure) dependence Sleep apnea COPD (chronic obstructive pulmonary disease) Shortness of breath on exertion Chronic cough History of pain when walking History of edema History of stress test Incontinence Depression Limb weakness Tobacco abuse Hyperlipidemia GERD (gastroesophageal reflux disease) Allergic rhinitis COPD (chronic obstructive pulmonary disease) Cervicalgia Cervical radiculopathy Rotator cuff syndrome Segmental and somatic dysfunction of thoracic region Acute maxillary sinusitis Bursitis of right shoulder Bicipital tendinitis of right shoulder Family history of alcoholism TAMRA (obstructive sleep apnea) Rheumatoid arthritis Spontaneous rupture of extensor tendons, right forearm Segmental and somatic dysfunction of lumbar region Surgical History Hx of surgical procedure History of esophagogastroduodenoscopy (EGD) Hx of colonoscopy h/o trigger finger release History of surgery on arm History of laparoscopic cholecystectomy History of appendectomy Family History Mother COPD (chronic obstructive pulmonary disease) Heart disease Osteoarthritis TAMRA (obstructive sleep apnea) Hypertension Father Cancer throat Abuse, drug or alcohol Brother Abuse, drug or alcohol Allergies Grandmother Allergies Hypertension Heart disease Social History Smoking Status: Current every day smoker tobacco type: cigarettes Tobacco: How many years used: 40 second hand exposure: Yes alcohol intake: former substance use type: does not use caffeine: Yes what type of physical activity do you participate in: none HPI RIGHT HAND Details: This documentation accurately refl (more 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 Normal [facility] Hand Min 3 Viewson 4 Hand Min 3 Views [facility] [address] [place], [place] [id number] Hand Min 3 Views MR#: [id number] Acct: [id number] Name: MONICA MALDONADO Rep #: [id number] : 1960 F 63 From: Sammy joshi MD PCP: Dr. Summer Funez MD Status: REG CLI Study: Hand Min 3 Views Date of Exam: 11/22/23 Exam# [id number] Ordering Dr: Walter Kovacs DO [id number] INDICATION: Pain EXAMINATION/TECHNIQUE: X-RAY - RIGHT XR Hand Min 3 Views 3 VIEWS COMPARISON: Prior study dated: 03/30/2020 FINDINGS: SOFT TISSUES: No soft tissue swelling or gas. No radiopaque foreign body. BONES/JOINTS: No acute fracture or subluxation.. Normal alignment. Preservation of the joint space throughout the hand. Mild degenerative change of the first carpometacarpal joint again noted... No sclerotic or destructive changes observed. RAD/Hand Min 3 Views IMPRESSION: No fracture or malalignment. No significant arthritic changes throughout the hand. Electronically Signed: Sammy Reeves MD at 7:09 EDT , CC: Dr. Summer Funez MD; Dr. Walter Kovacs DO Director Medical Writing: Signed Normal [facility] Wrist min 3 Viewson 11-22-19 Wrist min 3 Views [facility] Imaging Services [address] [place] [address] Wrist min 3 Views MR#: [id number] Acct: [id number] Name: MONICA MALDONADO Rep #: [id number] : 1960 F 63 From: Jose Teixeira MD PCP: Dr. Summer Funez MD Status: REG CLI Study: Wrist min 3 Views Date of Exam: 11/22/23 Exam# [id number] Ordering Dr: Walter Kovacs DO [id number] EXAM: XR RIGHT WRIST COMPLETE, 3 OR MORE VIEWS CLINICAL INDICATION: Pain. TECHNIQUE: Frontal, lateral and oblique views of the right wrist. COMPARISON: No relevant prior studies available. FINDINGS: BONES/JOINTS: Unremarkable. No acute fracture. No subluxation. Normal alignment. Preservation of the joint space. No sclerotic or destructive changes observed. SOFT TISSUES: Unremarkable. No soft tissue swelling or gas. No radiopaque foreign body. RAD/Wrist min 3 Views IMPRESSION: Negative right wrist x-rays. Electronically Signed: Jose Teixeira MD at 16:02 EDT , CC: Dr. Summer Funez MD; Dr. Walter Kovacs DO Director Medical Writing: Signed [facility] Office Visit Reporton 2023 Office Visit Report [facility] [address] [place] [address] OFFICE VISIT Date of Service: 11/06/23 MR#: [id number] Acct: [id number] Patient: MONICA MALDONADO Rep #: [id number] : 1960 Provider: ILYA Pedro Age/Sex: 63/F Location: [facility] Status: Signed Employer Purchased Covid Test Note: Patient here today for Covid Testing, requested by their Employer. Assessment and Plan Assessment and Plan Orders: Orders POC Cepheid Covid, FluAB, RSV Today 11/06/23 1045 Date Juan Jose Masseyignmichael Signature: Date (if applicable) CC: Normal [facility] MRI 3D POST PROCESSINGon MRI 3D POST PROCESSING * * *Final Report * * * DATE OF EXAM: May 24 2023 1:27PM [facility] 0280 - MRI 3D POST PROCESSING / PROCEDURE REASON: multiple diagnoses * * * * Physician Interpretation * * * * MRI ABDOMEN WITHOUT AND WITH IV CONTRAST , 3D REFORMATTED IMAGES CLINICAL HISTORY: Right upper quadrant pain TECHNIQUE: Magnet: 1.5T scanner. Multiplanar MRI of the abdomen with multiple sequences, including both pre- and post-contrast imaging. Additional MR cholangiopancreatography sequences were performed. Image post-processing {Maximum intensity Projection (MIP)} images were created at an off-line workstation by the interpreting physician or with concurrent physician supervision, with images created, reviewed and archived. Contrast: Intravenous: 20 ml of Dotarem COMPARISON: US 05/01/2023 RESULT: Liver: Normal morphology. No hepatic steatosis. No mass. Biliary: Mild prominence of the extrahepatic biliary tree with the common bile duct measuring 7 mm, with smooth tapering distally. This is most likely secondary to status post cholecystectomy. No biliary filling defect. There is focal dilation of small biliary radicles in segment 6 (3:30 and 15:9), without evidence of obstructing lesion. Gallbladder is absent. Spleen: No mass. No splenomegaly. Pancreas: No mass or duct dilation. Adrenals: No mass. Kidneys: No solid or cystic mass. No hydronephrosis. GI: No dilated bowel or wall thickening along imaged segments. Lymph nodes: No abdominal lymphadenopathy. Mesentery / Peritoneum / Retroperitoneum: No ascites or mass. Vasculature: The celiac axis and SMA are patent. The portal vein and branches, splenic vein, SMV, and hepatic veins are patent. No aortic or iliac artery aneurysm. Bones/Soft Tissues: No suspicious lesion. Lower chest: Unremarkable. IMPRESSION: 1. Focal dilation of small biliary radicles in hepatic segment 6, without evidence of obstructing lesion. Findings likely related to postinflammatory or posttraumatic stricture. Follow-up MRI in 3-6 months is recommended to ensure stability. 2. Mildly prominent extrahepatic biliary tree with smooth tapering distally, most likely secondary to status post cholecystectomy. No filling defects or obstructing lesions. ACTIONABLE RESULT: FOLLOW-UP Acuity: Actionable Findings: Pancreas/Biliary Routing Code: PB_1 Recommendation: MRI PANCREAS/BILIARY WO/W IV CONTRAST Time Frame: 3-6 months COMMUNICATION: Results will be communicated with the ordering provider via [employer] staff message or phone message by Imaging Support Services within 2 business days of report finalization. --END OF FINDING-- Director Medical Writing: BARBARA Transcribe Date/Time: May 28 2023 2:21P Dictated by : TAMIR PERRY MD This examination was interpreted and the report reviewed and electronically signed by: TAMIR PERRY MD on May 28 2023 2:33PM EST [id number] ACTIONABLE Invalid Interpretation Code [facility] MRI PANC/KATIE WO/W IVCONon MRI PANC/KATIE WO/W IVCON * * *Final Report* * * DATE OF EXAM: May 24 2023 1:27PM [facility] 0730 - MRI PANC/KATIE WO/W IVCON / PROCEDURE REASON: multiple diagnoses * * * * Physician Interpretation * * * * MRI ABDOMEN WITHOUT AND WITH IV CONTRAST , 3D REFORMATTED IMAGES CLINICAL HISTORY: Right upper quadrant pain TECHNIQUE: Magnet: 1.5T scanner. Multiplanar MRI of the abdomen with multiple sequences, including both pre- and post-contrast imaging. Additional MR cholangiopancreatography sequences were performed. Image post-processing {Maximum intensity Projection (MIP)} images were created at an off-line workstation by the interpreting physician or with concurrent physician supervision, with images created, reviewed and archived. Contrast: Intravenous: 20 ml of Dotarem COMPARISON: US 05/01/2023 RESULT: Liver: Normal morphology. No hepatic steatosis. No mass. Biliary: Mild prominence of the extrahepatic biliary tree with the common bile duct measuring 7 mm, with smooth tapering distally. This is most likely secondary to status post cholecystectomy. No biliary filling defect. There is focal dilation of small biliary radicles in segment 6 (3:30 and 15:9), without evidence of obstructing lesion. Gallbladder is absent. Spleen: No mass. No splenomegaly. Pancreas: No mass or duct dilation. Adrenals: No mass. Kidneys: No solid or cystic mass. No hydronephrosis. GI: No dilated bowel or wall thickening along imaged segments. Lymph nodes: No abdominal lymphadenopathy. Mesentery / Peritoneum / Retroperitoneum: No ascites or mass. Vasculature: The celiac axis and SMA are patent. The portal vein and branches, splenic vein, SMV, and hepatic veins are patent. No aortic or iliac artery aneurysm. Bones/Soft Tissues: No suspicious lesion. Lower chest: Unremarkable. IMPRESSION: 1. Focal dilation of small biliary radicles in hepatic segment 6, without evidence of obstructing lesion. Findings likely related to postinflammatory or posttraumatic stricture. Follow-up MRI in 3-6 months is recommended to ensure stability. 2. Mildly prominent extrahepatic biliary tree with smooth tapering distally, most likely secondary to status post cholecystectomy. No filling defects or obstructing lesions. ACTIONABLE RESULT: FOLLOW-UP Acuity: Actionable Findings: Pancreas/Biliary Routing Code: PB_1 Recommendation: MRI PANCREAS/BILIARY WO/W IV CONTRAST Time Frame: 3-6 months COMMUNICATION: Results will be communicated with the ordering provider via [employer] staff message or phone message by Imaging Support Services within 2 business days of report finalization. --END OF FINDING-- Director Medical Writing: BARBARA Transcribe Date/Time: May 28 2023 2:21P Dictated by : TAMIR PERRY MD This examination was interpreted and the report reviewed and electronically signed by: TAMIR PERRY MD on May 28 2023 2:33PM EST [id number] ACTIONABLE Invalid Interpretation Code [facility] [id number] 05-04-2023 [id number] HNO ID: [id number] Author: RENEA HICKEY RN Service: ? Author Type: Registered Nurse Type: [id number] Filed: 05/04/2023 10:49 Note Text: The patient received a copy of EGD discharge instructions that contain information for how to contact the physician who performed the procedure and when to seek medical care. Normal [facility] EGD Study observation Narrat iveon 05-04-2023 [facility] HISTORY PHYSICALon HISTORY PHYSICAL HNO ID: [id number] Author: SANGEETHA SILVA MD Service: General Surgery Author Type: Physician Type: H&P Filed: 05/04/2023 09:45 Note Text: Monica Maldonado is a 63 year old female with [...] weight loss, emesis. Reports Colon 02/2022 w/ WC w/ Dr. Hidalgo, told she had polyps and repeat in 5 yrs 02/2023 CBC, CMP WNL 02/2023 CT abd/pelv [facility] Hepatomegalty Diverticulosis Atherosclerosis Stable left lower lung nodule (3.8 mm) Record Review: [facility] / Outside records reviewed. PAST MEDICAL HISTORY PAST MEDICAL HISTORY Diagnosis Date Allergic rhinitis due to other allergen COPD (chronic obstructive pulmonary disease) (HCC) Depressive disorder, not elsewhere classified Esophageal reflux GERD (gastroesophageal reflux disease) Other chronic bronchitis PMH - PAST MEDICAL HISTORY OF Fatty LIver Rheumatoid arthritis (HCC) Sleep apnea PAST SURGICAL HISTORY PAST SURGICAL HISTORY Procedure Laterality Date APPENDECTOMY 1978 COLONOSCOPY FLX DX W/COLLJ SPEC WHEN PFRMD 04/26/2012 Normal - 10 year follow up COLONOSCOPY SCREENING 03/13/2022 EGD TRANSORAL BIOPSY SINGLE/MULTIPLE 12/24/2007 ESOPHAGOGASTRODUODENOSCOPY TRANSORAL DIAGNOSTIC 04/26/2012 Normal LAPS SURG CHOLECYSTECTOMY W/CHOLANGIOGRAPHY 12/11/2008 Normal IOC Allergies: ALLERGIES ALLERGIES Allergen Reactions Adalimumab Other: See Comments, Rash Adhesive Rash Penicillins Tremadol [Tramadol] GI Upset Made PT not want to eat, became dehydrated Medications: CURRENT MEDICATIONS Magnesium 250 mg tab Take 250 mg by mouth. omeprazole (PRILOSEC) 40 mg capsule Take 40 mg by mouth once daily. dicyclomine (BENTYL) 20 mg tablet Take 20 mg by mouth before meals and at bedtime. diphenhydrAMINE HCL (BENADRYL ALLERGY) 50 mg tablet Take 50 mg by mouth at bedtime as needed. mirabegron (MYRBETRIQ) 25 mg Tb24 Take by mouth. gvdurdezkxh-wncchympl-udsk nter (TRELEGY ELLIPTA) 100-62.5-25 mcg inhalation powder Inhale [...] mg Chew Take by mouth. FAMILY HISTORY FAMILY HISTORY Problem Relation Age of Onset Hypertension Mother Lipids Mother Alcohol/Drug Father Cancer Father Neck/Throat Psychiatry Father Alcohol/Drug Brother Allergies Brother Psychiatry Brother commited suicide Allergies Maternal Grandfather Hypertension Maternal Grandfather Heart Maternal Grandfather Lipids Maternal Grandfather Psychiatry Paternal Grandmother commited suicide Colon Cancer No Family History OCCUPATION AND MARITAL STATUS Employer And Job Title: None on file Years Of Education Completed: Not specified Marital Status: SOCIAL HISTORY Social History Tobacco Use Smoking status: Every [...] 132/76 Pulse 74 Ht 165.1 cm (5' 5) Wt 110.7 kg (244 lb) BMI 40.60 kg/m? Physical Exam Constitutional: General: She is not [...] No respiratory distress. Breath sounds: Normal breath so (more 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 Normal [facility] SURGICAL PATHOLOGYon 024 CASE REPORT Normal [facility] Comment on above: Order Comment: Speci men Type: TISSUE SPECIMEN Ordering Facility: [facility] Address: [address] [place] [address] Result Comment: Surg [facility] Pathology Report Case: [id number] Authorizing Provider: Sangeetha Silva MD Collected: 05/04/2023 10:32 AM Ordering Location: Ambulatory Surgery Received: 05/04/2023 02:02 PM Pathologist: Lili Peterson MD Specimens: A) - ANTRUM (STOMACH) BIOPSY, Antral bx h/h B) - ESOPHAGOGASTRIC JUNCTION BIOPSY, GE junction bx Performed By: #### S #### [facility] CLIA [id number] [place] [address] OF [facility] CLIA [id number] [address] [place] [address] OF [facility] DIAGNOSIS COMMENT A. No microorganisms morphologically compatible with Helicobacter Pylori like organisms are identified by routine H AND E-stained sections. Normal [facility] Comment on above: Order Comment: Speci men Type: TISSUE SPECIMEN Ordering Facility: [facility] Address: [address] [place] [address] Performed By: #### S #### [facility] CLIA [id number] [address] [place] [address] LAB CLIA [id number] [address] [place] [address] FINAL DIAGNOSIS Normal [facility] Comment on above: Order Comment: Speci men Type: TISSUE SPECIMEN Ordering Facility: [facility] Address: [address] [place] [address] Result Comment: Jayde santana, antrum, biopsy: - Gastric antral type mucosa with no pathologic diagnostic abnormality; see comment. B. Esophagogastric junction, biopsy: - Squamous and gastric mucosa with no pathologic diagnostic abnormality; negative for intraepithelial eosinophils, intestinal metaplasia or dysplasia. Performed By: #### S #### [facility] CLIA [id number] [address] [place] [address] [facility] CLIA [id number] [address] [place] [address] FINAL PERFORMING LAB Normal [facility] Comment on above: Order Comment: Speci men Type: TISSUE SPECIMEN Ordering Facility: [facility] Address: [address] [place] [address] Result Comment: Diag nostic interpretation performed at [facility], [id number] [place] [address] CLIA# [id number] Plant Production Worker: Lili Peterson M.D. Performed By: #### S #### [facility] CLIA [id number] [place] [address] [place] [facility] CLIA [id number] [address] [place], [place] [address] [address] [place] OF [place] GROSS DESCRIPTION Normal [facility] Comment on above: Order Comment: Speci men Type: TISSUE SPECIMEN Ordering Facility: [facility] Address: [address] [place] [address] Result Comment: A. A NTRUM (STOMACH) BIOPSY Received in formalin are two pieces of gutierrez, soft tissue aggregating to 0.8 x 0.2 x 0.2 cm. Totally submitted in one cassette. B. ESOPHAGOGASTRIC JUNCTION BIOPSY Received in formalin are two pieces of gutierrez-white, soft tissue aggregating to 0.7 x 0.3 x 0.2 cm. Totally submitted in one cassette. Gross examination performed at [facility], [address] [place] [address] FFS 05/04/2023 11:52 PM Performed By: #### S #### [facility] CLIA [id number] [address] [place] [address] [place] [facility] CLIA [id number] [address] [place] [address] [place] Upper GI endoscopy 024 Upper GI endoscopy [facility] Gastrointestinal Endoscopy Patient Name: Monica Maldonado Procedure Date: 05/04/2023 10:13 AM Date of : 1960 Admit Type: Outpatient Age: 63 Gender: Female Note Status: Finalized Procedure: Upper GI endoscopy Indications: Epigastric abdominal pain Providers: Sangeetha Silva MD Patient Profile: Refer to note in patient chart for documentation of history and physical. Referring Physician: Phyllis galeana) Elle (Referring ) Medicines: Midazolam 5 mg IV, Fentanyl 50 micrograms IV, Diphenhydramine 50 mg IV, Benzocaine spray Complications: No immediate complications. Requesting Provider: Procedure: Pre-Anesthesia Assessment: - Prior to the procedure, a History and Physical was performed, and patient medications and allergies were reviewed. The patient is competent. The risks and benefits of the procedure and the sedation options and risks were discussed with the patient. All questions were answered and informed consent was obtained. Patient identification and proposed procedure were verified by the physician in the pre-procedure area. Mental Status Examination: alert and oriented. Airway Examination: normal oropharyngeal airway and neck mobility. Respiratory Examination: clear to auscultation. CV Examination: normal. Prophylactic Antibiotics: The patient does not require prophylactic antibiotics. Prior Anticoagulants: The patient has taken no anticoagulant or antiplatelet agents. ASA Grade Assessment: III - A patient with severe systemic disease. After reviewing the risks and benefits, the patient was deemed in satisfactory condition to undergo the procedure. The anesthesia plan was to use moderate sedation / analgesia (conscious sedation). Immediately prior to administration of medications, the patient was re-assessed for adequacy to receive sedatives. The heart rate, respiratory rate, oxygen saturations, blood pressure, adequacy of pulmonary ventilation, and response to care were monitored throughout the procedure. The physical status of the patient was re-assessed after the procedure. After obtaining informed consent, the endoscope was passed under direct vision. Throughout the procedure, the patient's blood pressure, pulse, and oxygen saturations were monitored continuously. The Endoscope was introduced through the mouth, and advanced to the second part of duodenum. The upper GI endoscopy was accomplished without difficulty. The patient tolerated the procedure well. Moderate Sedation: The administration of moderate sedation was initiated at 10:21 AM. Moderate (conscious) sedation was personally administered by the endoscopist. The following parameters were monitored: oxygen saturation, heart rate, blood pressure, respiratory rate, EKG, adequacy of pulmonary ventilation, and response to care. Total physician intraservice time was 13 minutes. Findings: The first portion of the duodenum and second portion of the duodenum were normal. Radially striped mildly erythematous mucosa without bleeding was found in the gastric antrum. Biopsies were taken with a cold forceps for histology. Estimated blood loss was minimal. A small hiatal hernia with short segment sliding component was present. Z line was irregular. Biopsies were taken with a cold forceps for histology at GE junction. Estimated blood loss was minimal. Impression: - Normal first portion of the duodenum and second portion of the duodenum. - Erythematous mucosa in the antrum. Biopsied. - Small hiatal hernia. Biopsied. Recommendation: - Discharge patient to home (ambulatory). - Resume previous diet. - Continue present medications. - Await pathology results. - Return to GI clinic at the next available appointment. Procedure Code(s): --- Professional --- 60772, Esophagogastroduodenoscopy , flexible, transoral; with biopsy, single or multiple 76520, 59, Moderate sedation services provided by the same physician or other qualified health manager critical care unit performing the diagnostic or therapeutic service that the sedation supports, requiring the presence of an independent trained observer to assist in the monitoring of the patient's level of consciousness and physiological status; initial 15 minutes of intraservice time, patient age 5 years or older Diagnosis Code(s): --- Professional --- R10.13, Epigastric pain K44.9, Diaphragmatic hernia without obstruction or gangrene K31.89, Other diseases of stomach and duodenum CPT copyright 2020 [employer]. All rights reserved. The codes documented in this report are preliminary and upon manager critical care unit review may be revised to meet current compliance requirements. Attending Participation: I personally performed the entire procedure. Scope In: 10:28:20 AM Scope Out: 10:34:20 AM MD Sangeetha Turpin MD 05/04/2023 10:40:00 AM This report has been signed electronically b (more 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 Normal [facility] No Panel Informationon 04-30 [facility] US ABD RIGHT UPPER QUADRANTo n 05-01-2023 US ABD RIGHT UPPER QUADRANT * * *Final Report* * * DATE OF EXAM: May 01 2023 7:31AM WRU 1032 - US ABD RIGHT UPPER QUADRANT / PROCEDURE REASON: Abnormal CT of liver * * * * Physician Interpretation * * * * EXAMINATION: RIGHT UPPER QUADRANT ULTRASOUND CLINICAL HISTORY: Abnormal CT appearance of the liver TECHNIQUE: Sonography of the right upper quadrant was performed. Images were obtained and stored in a permanent archive. MQ: URUQ_2 COMPARISON: None. RESULT: Visualization is somewhat suboptimal due to overlying bowel gas and patient build Pancreas: Normal sonographic appearance. Portions obscured: tail Liver: Echotexture: Normal, homogeneous. Echogenicity: Diffusely increased echogenicity and increased attenuation of sound is consistent with fatty infiltration. Surface contour: Smooth Lesions: None. Biliary: No intrahepatic biliary duct dilation. CBD: 0.8 cm at the hilum. Gallbladder: Prior cholecystectomy The right kidney measures 11.1 and the left 11 cm in length. No hydronephrosis Ascites: None. The spleen is 8.6 cm in length. Normal IMPRESSION: Fatty infiltration of the liver. Mildly dilated common duct in the setting of cholecystectomy. Normal sonographic appearance of the spleen Director Medical Writing: BARBARA Transcribe Date/Time: May 01 2023 9:18A Dictated by : SKYLER GILMORE MD This examination was interpreted and the report reviewed and electronically signed by: SKYLER GILMORE MD on May 01 2023 9:25AM EST [id number] Normal [facility] US ABD SPLEEN -NBon 05-01-19 US ABD SPLEEN -NB * * *Final Report* * * DATE OF EXAM: May 01 2023 7:31AM WRU 1232 - US ABD SPLEEN -NB / PROCEDURE REASON: Abnormal CT of liver * * * * Physician Interpretation * * * * EXAMINATION: RIGHT UPPER QUADRANT ULTRASOUND CLINICAL HISTORY: Abnormal CT appearance of the liver TECHNIQUE: Sonography of the right upper quadrant was performed. Images were obtained and stored in a permanent archive. MQ: URUQ_2 COMPARISON: None. RESULT: Visualization is somewhat suboptimal due to overlying bowel gas and patient build Pancreas: Normal sonographic appearance. Portions obscured: tail Liver: Echotexture: Normal, homogeneous. Echogenicity: Diffusely increased echogenicity and increased attenuation of sound is consistent with fatty infiltration. Surface contour: Smooth Lesions: None. Biliary: No intrahepatic biliary duct dilation. CBD: 0.8 cm at the hilum. Gallbladder: Prior cholecystectomy The right kidney measures 11.1 and the left 11 cm in length. No hydronephrosis Ascites: None. The spleen is 8.6 cm in length. Normal IMPRESSION: Fatty infiltration of the liver. Mildly dilated common duct in the setting of cholecystectomy. Normal sonographic appearance of the spleen Director Medical Writing: [facility] Transcribe Date/Time: May 01 2023 9:18A Dictated by : SKYLER GILMORE MD This examination was interpreted and the report reviewed and electronically signed by: SKYLER GILMORE MD on May 01 2023 9:25AM EST [id number] Normal [facility] CNOVon 04-18-2023 CNOV Office Visit ([facility] ) -- MONICA MALDONADO ([id number]) 1960 F Date Time Provider Department 04/18/23 9:40 AM PHYLLIS ALMEIDA [facility] During your visit today, we recorded the following information about you: Pulse Blood pressure Weight Height 74/minute 132/76 110.7 kg 1.651 m Phyllis Almeida PA-C 04/18/2023 10:09 AM Signed CHIEF COMPLAINT: Patient presents with: Enlarged liver: Labs 02/22/23 HPI: Monica Maldonado is a 63 year old female with [...] weight loss, emesis. Reports Colon 02/2022 w/ [facility] w/ Dr. Hidalgo, told she had polyps and repeat in 5 yrs 02/2023 CBC, CMP WNL 02/2023 CT abd/pelv [facility] Hepatomegalty Diverticulosis Atherosclerosis Stable left lower lung [...] (MYRBETRIQ) 25 mg Tb24 Take by mouth. xpdlkcfbeag-rskxlfyzi-ffqi nter (TRELEGY ELLIPTA) 100-62.5-25 mcg inhalation powder Inhale [...] 132/76 Pulse 74 Ht 165.1 cm (5' 5) Wt 110.7 kg (244 lb) BMI 40.60 kg/m? Physical Exam Constitutional: General: She is not [...] Rate and Rhythm: Normal rate and regular (more 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 Normal [facility] Absolute lymphocyte countOrd ered By: Leon Pinto on 02-22-2023 Lymphocytes Auto (Unsp spec) [#/Vol] 2.53 10*3/uL 0.83-4.51 [facility] Basophil percentageOrdered B y: Leon Pinto on 02-22-2023 Amylase [Catalytic activity/Vol] 57 U/L 25-115 [facility] Basophils/100 WBC (Bld) 0.4 % 0-1 [facility] Bilirubin [Mass/Vol] 0.20 mg/dL 0.20-1.00 [facility] Comment on above: For patients on eltr ombopag therapy, use of Dimension [place] TBIL is not recommended. Chloride [Moles/Vol] 105 mmol/L 98-107 [facility] Eosinophils/100 WBC (Bld) 1.0 % 0-5 [facility] Glucose [Mass/Vol] 94 mg/dL 74-106 [facility] Neutrophils (Bld) [#/Vol] 5.7 10*3/uL 2.0-7.7 [facility] Neutrophils/100 WBC (Bld) 62.5 % 47-70 [facility] Potassium [Moles/Vol] 3.8 mmol/L 3.5-5.1 [facility] Protein [Mass/Vol] 7.2 g/dL 6.4-8.2 [facility] Sodium [Moles/Vol] 142 mmol/L 136-145 [facility] WBC (Bld) [#/Vol] 9.1 10*3/uL 4.4-11.0 [facility] Blood erythrocytes count (nu mber/volume)Ordered By: Leon Pinto on 02-22-2023 RBC (Bld) [#/Vol] 4.56 10*6/uL 4.2-5.4 [facility] Blood hemoglobin measurement (mass/volume)Ordered By: Leon Pinto on 02-22-2023 Hemoglobin (Bld) [Mass/Vol] 14.5 g/dL 12.0-15.0 [facility] Blood lymphocytes/100 leukoc ytesOrdered By: Leon Pinto on 02-22-2023 Lymphocytes/100 WBC (Bld) 27.9 % 19-41 [facility] Blood monocytes/100 leukocyt esOrdered By: Leon Pinto on 02-22-2023 Monocytes/100 WBC (Bld) 7.4 % 0-10 [facility] Blood platelet mean volumeOr dered By: Leon Pinto on 02-22-2023 Platelet mean volume (Bld) [Entitic vol] 9.2 fL 6.2-12.0 [facility] Determination of erythrocyte mean corpuscular volume (MCV)Ordered By: Leon Pinto 02-22-2023 MCV (RBC) [Entitic vol] 96.3 fL 81-99 [facility] Hematocrit Auto (Bld) [Volum e fraction]Ordered By: Leon Pinto 02-22-2023 Hematocrit (Bld) [Volume fraction] 43.9 % 37-47 [facility] Laboratory - Chemistry and C hemistry - challengeOrdered By: Leon Pinto on 02-22-2023 ALP [Catalytic activity/Vol] 87 U/L 45-117 [facility] ALT [Catalytic activity/Vol] 26 U/L 13-56 [facility] CO2 [Moles/Vol] 31.0 mmol/L 21.0-32.0 [facility] Globulin (S) [Mass/Vol] 3.5 g/dL 2.2-4.2 [facility] Lipase [Catalytic activity/Vol] 61 U/L 13-75 [facility] Comment on above: Please note:LIPASE r evised reference range effective 22. New Lipase methodology. Expected to produce lower values than the previous assay method. NEW Reference Range: 13 - 75 U/L Urea nitrogen/Creatinine [Mass ratio] 18.1 mg/mg 10-20 [facility] - Hematology and Cell countsOrdered By: Leon Pinto on 02-22-2023 Erythrocyte distribution width (RBC) [Entitic vol] 48.1 fL 35.1-43.9 [facility] Erythrocyte distribution width (RBC) [Ratio] 13.8 % 11.6-14.6 [facility] Immature granulocytes/100 WBC (Bld) 0.800 % 0.0-0.9 [facility] Comment on above: IG% - Immature Granu locytes (promyelocytes, myelocytes and metamyelocytes) > 1% indicates that a LEFT SHIFT is Present. MCH (RBC) [Entitic mass] 31.8 pg 27.0-32.0 [facility] Nucleated RBC/100 WBC (Bld) [Ratio] 0 % 0-5 [facility] MCHC Auto (RBC) [Mass/Vol]Or dered By: Leon Pinto on 02-22-2023 MCHC (RBC) [Mass/Vol] 33.0 g/dL 32-36 [facility] No Panel InformationOrdered By: Leon Pinto on 02-22-2023 Estimated GFR (MDRD) Amer 78 mL/min >60 [facility] Comment on above: GFR Calc Estimated GFR (MDRD) Non-Af Amer 64 mL/min >60 [facility] Comment on above: Non- GFR Calc Platelets bldOrdered By: Leon Pinto on 02-22-2023 Platelets (Bld) [#/Vol] 361 10*3/uL 150-450 [facility] Serum or plasma albumin ilana urement (mass/volume)Ordered By: Leon Pinto on 02-22-2023 Albumin [Mass/Vol] 3.7 g/dL 3.2-5.0 [facility] Serum or plasma albumin/glob ulin mass ratioOrdered By: Leon Pinto on 02-22-2023 Albumin/Globulin [Mass ratio] 1.1 {ratio} 0.9-2.4 [facility] Serum or plasma calcium ilana urement (mass/volume)Ordered By: Leon Pinto on 02-22-2023 Calcium [Mass/Vol] 9.7 mg/dL 8.5-10.1 [facility] Serum or plasma creatinine m easurement (mass/volume)Ordered By: Leon Pinto on 02-22-2023 Creatinine [Mass/Vol] 0.94 mg/dL 0.55-1.02 [facility] Comment on above: The validity of the calculated GFR & GFRAA in patients over 70 years has not been determined. Clinical correlation is essential. Serum or plasma urea nitroge n measurement (mass/volume)Ordered By: Leon Pinto on 02-22-2023 Urea nitrogen [Mass/Vol] 17 mg/dL 7-18 [facility] Thin prep Papanicolaou smear with manual screeningOrdered By: Leon Pinto on 02-22-2023 Thin prep Papanicolaou smear with manual screening 17 U/L 15-37 [facility] Thin prep Papanicolaou smear with manual screening 6 5-15 [facility] Absolute lymphocyte countOrd ered By: Leon Pinto on 11-28-2022 Lymphocytes Auto (Unsp spec) [#/Vol] 2.54 10*3/uL 0.83-4.51 [facility] Basophil percentageOrdered B y: Leon Pinto on 11-28-2022 Basophils/100 WBC (Bld) 0.6 % 0-1 [facility] Bilirubin [Mass/Vol] 0.20 mg/dL 0.20-1.00 [facility] Comment on above: For patients on eltr ombopag therapy, use of Dimension [place] TBIL is not recommended. Chloride [Moles/Vol] 108 mmol/L 98-107 [facility] Eosinophils/100 WBC (Bld) 0.5 % 0-5 [facility] Glucose [Mass/Vol] 108 mg/dL 74-106 [facility] Comment on above: Fasting Glucose resu lt from 100 to 125 mg/dL suggests IMPAIRED HOMEOSTASIS per A.D.A. criteria. Neutrophils (Bld) [#/Vol] 7.3 10*3/uL 2.0-7.7 [facility] Neutrophils/100 WBC (Bld) 67.9 % 47-70 [facility] Potassium [Moles/Vol] 3.8 mmol/L 3.5-5.1 [facility] Protein [Mass/Vol] 7.0 g/dL 6.4-8.2 [facility] Sodium [Moles/Vol] 140 mmol/L 136-145 [facility] WBC (Bld) [#/Vol] 10.7 10*3/uL 4.4-11.0 [facility] Blood erythrocytes count (nu mber/volume)Ordered By: Leon Pinto on 11-28-2022 RBC (Bld) [#/Vol] 4.36 10*6/uL 4.2-5.4 [facility] Blood hemoglobin measurement (mass/volume)Ordered By: Leon Pinto on 11-28-2022 Hemoglobin (Bld) [Mass/Vol] 14.0 g/dL 12.0-15.0 [facility] Blood lymphocytes/100 leukoc ytesOrdered By: Leon Pinto on 11-28-2022 Lymphocytes/100 WBC (Bld) 23.8 % 19-41 [facility] Blood monocytes/100 leukocyt esOrdered By: Leon Pinto on 11-28-2022 Monocytes/100 WBC (Bld) 6.3 % 0-10 [facility] Blood platelet mean volumeOr dered By: Leon Pinto on 11-28-2022 Platelet mean volume (Bld) [Entitic vol] 9.0 fL 6.2-12.0 [facility] Determination of erythrocyte mean corpuscular volume (MCV)Ordered By: Leon Pinto on 11-28-2022 MCV (RBC) [Entitic vol] 98.2 fL 81-99 [facility] Hematocrit Auto (Bld) [Volum e fraction]Ordered By: Leon Pinto on 11-28-2022 Hematocrit (Bld) [Volume fraction] 42.8 % 37-47 [facility] - Chemistry and C hemistry - challengeOrdered By: Leon Pinto on 11-28-2022 ALP [Catalytic activity/Vol] 75 U/L 45-117 [facility] ALT [Catalytic activity/Vol] 23 U/L 13-56 [facility] CO2 [Moles/Vol] 26.0 mmol/L 21.0-32.0 [facility] Globulin (S) [Mass/Vol] 3.6 g/dL 2.2-4.2 [facility] Urea nitrogen/Creatinine [Mass ratio] 16.3 mg/mg 10-20 [facility] - Hematology and Cell countsOrdered By: Leon Pinto on 11-28-2022 Erythrocyte distribution width (RBC) [Entitic vol] 51.1 fL 35.1-43.9 [facility] Erythrocyte distribution width (RBC) [Ratio] 14.2 % 11.6-14.6 [facility] Immature granulocytes/100 WBC (Bld) 0.900 % 0.0-0.9 [facility] Comment on above: IG% - Immature Granu locytes (promyelocytes, myelocytes and metamyelocytes) > 1% indicates that a LEFT SHIFT is Present. MCH (RBC) [Entitic mass] 32.1 pg 27.0-32.0 [facility] Nucleated RBC/100 WBC (Bld) [Ratio] 0 % 0-5 [facility] MCHC Auto (RBC) [Mass/Vol]Or dered By: Leon Pinto on 11-28-2022 MCHC (RBC) [Mass/Vol] 32.7 g/dL 32-36 [facility] No Panel InformationOrdered By: Leon Pinto on 11-28-2022 Estimated GFR (MDRD) Amer 74 mL/min >60 [facility] Comment on above: GFR Calc Estimated GFR (MDRD) Non-Af Amer 61 mL/min >60 [facility] Comment on above: Non- GFR Calc Thyroid Stimulating Hormone (TSH) 3.09 uIU/mL 0.358-3.74 [facility] Platelets bldOrdered By: Leon Pinto on 11-28-2022 Platelets (Bld) [#/Vol] 341 10*3/uL 150-450 [facility] Serum or plasma albumin ilana urement (mass/volume)Ordered By: Leon Pitno on 11-28-2022 Albumin [Mass/Vol] 3.4 g/dL 3.2-5.0 [facility] Serum or plasma albumin/glob ulin mass ratioOrdered By: Leon Pinto on 11-28-2022 Albumin/Globulin [Mass ratio] 0.9 {ratio} 0.9-2.4 [facility] Serum or plasma calcium ilana urement (mass/volume)Ordered By: Leon Pinto on 11-28-2022 Calcium [Mass/Vol] 8.8 mg/dL 8.5-10.1 [facility] Serum or plasma creatinine m easurement (mass/volume)Ordered By: Leon Pinto on 11-28-2022 Creatinine [Mass/Vol] 0.98 mg/dL 0.55-1.02 [facility] Comment on above: The validity of the calculated GFR & GFRAA in patients over 70 years has not been determined. Clinical correlation is essential. Serum or plasma urea nitroge n measurement (mass/volume)Ordered By: Leon Pinto on 11-28-2022 Urea nitrogen [Mass/Vol] 16 mg/dL 7-18 [facility] Thin prep Papanicolaou smear with manual screeningOrdered By: Leon Pinto 11-28-2022 Thin prep Papanicolaou smear with manual screening 13 U/L 15-37 [facility] Thin prep Papanicolaou smear with manual screening 6 5-15 [facility] Whole blood hemoglobin A1c/t otal hemoglobin ratio (mass fraction)Ordered By: Leon Pinto on 11-28-2022 HbA1c (Bld) [Mass fraction] 5.2 % 3.8-5.6 [facility] Comment on above: Normal < 5.7 % Predi abetic 5.7 - 6.4 % Diabetic >or= 6.5 % Please note range changes. Laboratory - Microbiology an d Antimicrobial susceptibilityOrdered By: Leon Pinto on 10-27-2022 SARS-CoV-2 (COVID-19) RNA MALIA+probe Ql (Unsp spec) [facility] No Panel InformationOrdered By: Leon Pinto on 10-27-2022 Influenza Types A,B Direct FA (BINA) [facility] RSV Ag EIAOrdered By: Leon roberson on 10-27-2022 RSV Ag Immune stain Ql (Tiss) [facility] Laboratory - Microbiology an d Antimicrobial susceptibilityOrdered By: Leon Pinto on 10-12-2022 SARS-CoV-2 (COVID-19) RNA MALIA+probe Ql (Unsp spec) [facility] No Panel InformationOrdered By: Leon Pinto on 10-12-2022 Influenza Types A,B Direct FA (BINA) [facility] RSV Ag EIAOrdered By: Leon roberson on 10-12-2022 RSV Ag Immune stain Ql (Tiss) [facility] Absolute lymphocyte countOrd ered By: KAYLEE COULTER on 09-01-2022 Lymphocytes Auto (Unsp spec) [#/Vol] 2.33 10*3/uL 0.83-4.51 [facility] Basophil percentageOrdered B y: KAYLEE COULTER on 09-01-2022 Basophils/100 WBC (Bld) 0.4 % 0-1 [facility] Bilirubin [Mass/Vol] 0.20 mg/dL 0.20-1.00 [facility] Comment on above: For patients on eltr ombopag therapy, use of Dimension [place] TBIL is not recommended. Eosinophils/100 WBC (Bld) 0.6 % 0-5 [facility] Neutrophils (Bld) [#/Vol] 5.0 10*3/uL 2.0-7.7 [facility] Neutrophils/100 WBC (Bld) 60.9 % 47-70 [facility] Protein [Mass/Vol] 7.2 g/dL 6.4-8.2 [facility] WBC (Bld) [#/Vol] 8.3 10*3/uL 4.4-11.0 [facility] Blood erythrocytes count (nu mber/volume)Ordered By: KAYLEE COULTER on 09-01-2022 RBC (Bld) [#/Vol] 4.71 10*6/uL 4.2-5.4 [facility] Blood hemoglobin measurement (mass/volume)Ordered By: KAYLEE COULTER on 09-01-2022 Hemoglobin (Bld) [Mass/Vol] 14.7 g/dL 12.0-15.0 [facility] Blood lymphocytes/100 leukoc ytesOrdered By: KAYLEE COULTER on 09-01-2022 Lymphocytes/100 WBC (Bld) 28.2 % 19-41 [facility] Blood monocytes/100 leukocyt esOrdered By: KAYLEE COULTER on 09-01-2022 Monocytes/100 WBC (Bld) 9.4 % 0-10 [facility] Blood platelet mean volumeOr dered By: KAYLEE COULTER on 09-01-2022 Platelet mean volume (Bld) [Entitic vol] 9.4 fL 6.2-12.0 [facility] Determination of erythrocyte mean corpuscular volume (MCV)Ordered By: KAYLEE COULTER on 09-01-2022 MCV (RBC) [Entitic vol] 94.1 fL 81-99 [facility] Direct bilirubinOrdered By: KAYLEE COULTER on 09-01-2022 Bilirubin.direct [Mass/Vol] 0.09 mg/dL 0.00-0.30 [facility] Erythrocyte sedimentation ra teOrdered By: KAYLEE COULTER on 09-01-2022 ESR (Bld) [Velocity] 13 mm/h 0-30 [facility] Hematocrit Auto (Bld) [Volum e fraction]Ordered By: KAYLEE COULTER on 09-01-2022 Hematocrit (Bld) [Volume fraction] 44.3 % 37-47 [facility] Laboratory - Chemistry and C hemistry - challengeOrdered By: KAYLEE COULTER on 09-01-2022 ALP [Catalytic activity/Vol] 86 U/L 45-117 [facility] ALT [Catalytic activity/Vol] 25 U/L 13-56 [facility] Globulin (S) [Mass/Vol] 3.7 g/dL 2.2-4.2 [facility] - Hematology and Cell countsOrdered By: KALYEE COULTER on 09-01-2022 Erythrocyte distribution width (RBC) [Entitic vol] 44.5 fL 35.1-43.9 [facility] Erythrocyte distribution width (RBC) [Ratio] 12.9 % 11.6-14.6 [facility] Immature granulocytes/100 WBC (Bld) 0.500 % 0.0-0.9 [facility] Comment on above: IG% - Immature Granu locytes (promyelocytes, myelocytes and metamyelocytes) > 1% indicates that a LEFT SHIFT is Present. MCH (RBC) [Entitic mass] 31.2 pg 27.0-32.0 [facility] Nucleated RBC/100 WBC (Bld) [Ratio] 0 % 0-5 [facility] MCHC Auto (RBC) [Mass/Vol]Or dered By: KAYLEE COULTER on 09-01-2022 MCHC (RBC) [Mass/Vol] 33.2 g/dL 32-36 [facility] No Panel InformationOrdered By: KAYLEE COULTER on 09-01-2022 Estimated GFR (MDRD) Amer 82 mL/min >60 [facility] Comment on above: GFR Calc Estimated GFR (MDRD) Non-Af Amer 68 mL/min >60 [facility] Comment on above: Non- GFR Calc Platelets bldOrdered By: LORA COULTER on 09-01-2022 Platelets (Bld) [#/Vol] 291 10*3/uL 150-450 [facility] Serum or plasma C reactive p rotein measurement (mass/volume)Ordered By: KAYLEE COULTER on 09-01-2022 CRP [Mass/Vol] 6.57 mg/L 0.0-3.0 [facility] Comment on above: C-Reactive Protein ( CRP) provides useful information for thediagnosis, therapy and monitoring of inflammatory processesand associated diseases. For the evaluation of Relative Riskfor Cardiovascular Disease, a High Sensitivity CRP (HSCRP)should be ordered. Serum or plasma albumin ilana urement (mass/volume)Ordered By: KAYLEE COULTER on 09-01-2022 Albumin [Mass/Vol] 3.5 g/dL 3.2-5.0 [facility] Serum or plasma creatinine m easurement (mass/volume)Ordered By: KAYLEE COULTER on 09-01-2022 Creatinine [Mass/Vol] 0.90 mg/dL 0.55-1.02 [facility] Comment on above: The validity of the calculated GFR & GFRAA in patients over 70 years has not been determined. Clinical correlation is essential. Thin prep Papanicolaou smear with manual screeningOrdered By: KAYLEE COULTER on 09-01-2022 Thin prep Papanicolaou smear with manual screening 16 U/L 15-37 [facility] Urine creatinine measurement (mass/volume)Ordered By: KAYLEE COULTER on 09-01-2022 Creatinine (U) [Mass/Vol] 32.50 mg/dL NO RANGE EST. [facility] Laboratory - Microbiology an d Antimicrobial susceptibilityon 08-03-2022 SARS-CoV-2 (COVID-19) RNA MALIA+probe Ql (Unsp spec) Not detected [facility] Absolute lymphocyte countOrd ered By: KAYLEE COULTER on 06-14-2022 Lymphocytes Auto (Unsp spec) [#/Vol] 1.99 10*3/uL 0.83-4.51 [facility] Basophil percentageOrdered B y: KAYLEE COULTER on 06-14-2022 Basophils/100 WBC (Bld) 0.3 % 0-1 [facility] Bilirubin [Mass/Vol] 0.30 mg/dL 0.20-1.00 [facility] Comment on above: For patients on eltr ombopag therapy, use of Dimension [place] TBIL is not recommended. Eosinophils/100 WBC (Bld) 1.2 % 0-5 [facility] Neutrophils (Bld) [#/Vol] 4.1 10*3/uL 2.0-7.7 [facility] Neutrophils/100 WBC (Bld) 58.7 % 47-70 [facility] Protein [Mass/Vol] 7.1 g/dL 6.4-8.2 [facility] WBC (Bld) [#/Vol] 6.9 10*3/uL 4.4-11.0 [facility] Blood erythrocytes count (nu mber/volume)Ordered By: KAYLEE COULTER on 06-14-2022 RBC (Bld) [#/Vol] 4.45 10*6/uL 4.2-5.4 [facility] Blood hemoglobin measurement (mass/volume)Ordered By: KAYLEE COULTER on 06-14-2022 Hemoglobin (Bld) [Mass/Vol] 14.2 g/dL 12.0-15.0 [facility] Blood lymphocytes/100 leukoc ytesOrdered By: KAYLEE COULTER on 06-14-2022 Lymphocytes/100 WBC (Bld) 28.8 % 19-41 [facility] Blood monocytes/100 leukocyt esOrdered By: KAYLEE COULTER on 06-14-2022 Monocytes/100 WBC (Bld) 10.7 % 0-10 [facility] Blood platelet mean volumeOr dered By: KAYLEE COULTER on 06-14-2022 Platelet mean volume (Bld) [Entitic vol] 10.1 fL 6.2-12.0 [facility] Determination of erythrocyte mean corpuscular volume (MCV)Ordered By: KAYLEE COULTER on 06-14-2022 MCV (RBC) [Entitic vol] 97.3 fL 81-99 [facility] Direct bilirubinOrdered By: KAYLEE COULTER on 06-14-2022 Bilirubin.direct [Mass/Vol] 0.10 mg/dL 0.00-0.30 [facility] Hematocrit Auto (Bld) [Volum e fraction]Ordered By: KAYLEE COULTER on 06-14-2022 Hematocrit (Bld) [Volume fraction] 43.3 % 37-47 [facility] Laboratory - Chemistry and C hemistry - challengeOrdered By: KAYLEE COULTER on 06-14-2022 ALP [Catalytic activity/Vol] 84 U/L 45-117 [facility] ALT [Catalytic activity/Vol] 29 U/L 13-56 [facility] Globulin (S) [Mass/Vol] 3.5 g/dL 2.2-4.2 [facility] Laboratory - Hematology and Cell countsOrdered By: KAYLEE COULTER on 06-14-2022 Erythrocyte distribution width (RBC) [Entitic vol] 47.5 fL 35.1-43.9 [facility] Erythrocyte distribution width (RBC) [Ratio] 13.2 % 11.6-14.6 [facility] Immature granulocytes/100 WBC (Bld) 0.300 % 0.0-0.9 [facility] Comment on above: IG% - Immature Granu locytes (promyelocytes, myelocytes and metamyelocytes) > 1% indicates that a LEFT SHIFT is Present. MCH (RBC) [Entitic mass] 31.9 pg 27.0-32.0 [facility] Nucleated RBC/100 WBC (Bld) [Ratio] 0 % 0-5 [facility] MCHC Auto (RBC) [Mass/Vol]Or dered By: KAYLEE COULTER on 06-14-2022 MCHC (RBC) [Mass/Vol] 32.8 g/dL 32-36 [facility] Platelets bldOrdered By: LORA COULTER on 06-14-2022 Platelets (Bld) [#/Vol] 299 10*3/uL 150-450 [facility] Serum or plasma albumin ilana urement (mass/volume)Ordered By: KAYLEE COULTER on 06-14-2022 Albumin [Mass/Vol] 3.6 g/dL 3.2-5.0 [facility] Thin prep Papanicolaou smear with manual screeningOrdered By: KAYLEE COULTER on 06-14-2022 Thin prep Papanicolaou smear with manual screening 21 U/L 15-37 [facility] Absolute lymphocyte countOrd ered By: KAYLEE COULTER on 05-11-2022 Lymphocytes Auto (Unsp spec) [#/Vol] 2.25 10*3/uL 0.83-4.51 [facility] Basophil percentageOrdered B y: KAYLEE COULTER on 05-11-2022 Basophils/100 WBC (Bld) 0.6 % 0-1 [facility] Bilirubin [Mass/Vol] 0.30 mg/dL 0.20-1.00 [facility] Comment on above: For patients on eltr ombopag therapy, use of Dimension [place] TBIL is not recommended. Eosinophils/100 WBC (Bld) 0.6 % 0-5 [facility] Neutrophils (Bld) [#/Vol] 5.5 10*3/uL 2.0-7.7 [facility] Neutrophils/100 WBC (Bld) 64.5 % 47-70 [facility] Protein [Mass/Vol] 7.2 g/dL 6.4-8.2 [facility] WBC (Bld) [#/Vol] 8.6 10*3/uL 4.4-11.0 [facility] Blood erythrocytes count (nu mber/volume)Ordered By: KAYLEE COULTER on 05-11-2022 RBC (Bld) [#/Vol] 4.36 10*6/uL 4.2-5.4 [facility] Blood hemoglobin measurement (mass/volume)Ordered By: KAYLEE COULTER on 05-11-2022 Hemoglobin (Bld) [Mass/Vol] 14.1 g/dL 12.0-15.0 [facility] Blood lymphocytes/100 leukoc ytesOrdered By: KAYLEE COULTER on 05-11-2022 Lymphocytes/100 WBC (Bld) 26.3 % 19-41 [facility] Blood monocytes/100 leukocyt esOrdered By: KAYLEE COULTER on 05-11-2022 Monocytes/100 WBC (Bld) 7.2 % 0-10 [facility] Blood platelet mean volumeOr dered By: KAYLEE COULTER on 05-11-2022 Platelet mean volume (Bld) [Entitic vol] 9.0 fL 6.2-12.0 [facility] Determination of erythrocyte mean corpuscular volume (MCV)Ordered By: KAYLEE COULTER on 05-11-2022 MCV (RBC) [Entitic vol] 97.0 fL 81-99 [facility] Direct bilirubinOrdered By: KAYLEE COULTER on 05-11-2022 Bilirubin.direct [Mass/Vol] 0.10 mg/dL 0.00-0.30 [facility] Erythrocyte sedimentation ra teOrdered By: KAYLEE COULTER on 05-11-2022 ESR (Bld) [Velocity] 8 mm/h 0-30 [facility] Hematocrit Auto (Bld) [Volum e fraction]Ordered By: KAYLEE COULTER on 05-11-2022 Hematocrit (Bld) [Volume fraction] 42.3 % 37-47 [facility] Laboratory - Chemistry and C hemistry - challengeOrdered By: KAYLEE COULTER on 05-11-2022 ALP [Catalytic activity/Vol] 72 U/L 45-117 [facility] ALT [Catalytic activity/Vol] 27 U/L 13-56 [facility] Globulin (S) [Mass/Vol] 3.6 g/dL 2.2-4.2 [facility] Laboratory - Hematology and Cell countsOrdered By: KAYLEE COULTER on 05-11-2022 Erythrocyte distribution width (RBC) [Entitic vol] 49.1 fL 35.1-43.9 [facility] Erythrocyte distribution width (RBC) [Ratio] 14.0 % 11.6-14.6 [facility] Immature granulocytes/100 WBC (Bld) 0.800 % 0.0-0.9 [facility] Comment on above: IG% - Immature Granu locytes (promyelocytes, myelocytes and metamyelocytes) > 1% indicates that a LEFT SHIFT is Present. MCH (RBC) [Entitic mass] 32.3 pg 27.0-32.0 [facility] Nucleated RBC/100 WBC (Bld) [Ratio] 0 % 0-5 [facility] MCHC Auto (RBC) [Mass/Vol]Or dered By: KAYLEE COULTER on 05-11-2022 MCHC (RBC) [Mass/Vol] 33.3 g/dL 32-36 [facility] No Panel InformationOrdered By: KAYLEE COULTER on 05-11-2022 Estimated GFR (MDRD) Amer 84 mL/min >60 [facility] Comment on above: GFR Calc Estimated GFR (MDRD) Non-Af Amer 70 mL/min >60 [facility] Comment on above: Non- GFR Calc Platelets bldOrdered By: LORA COULTER on 05-11-2022 Platelets (Bld) [#/Vol] 360 10*3/uL 150-450 [facility] Serum or plasma C reactive p rotein measurement (mass/volume)Ordered By: KAYLEE COULTER on 05-11-2022 CRP [Mass/Vol] 6.44 mg/L 0.0-3.0 [facility] Comment on above: C-Reactive Protein ( CRP) provides useful information for thediagnosis, therapy and monitoring of inflammatory processesand associated diseases. For the evaluation of Relative Riskfor Cardiovascular Disease, a High Sensitivity CRP (HSCRP)should be ordered. Serum or plasma albumin ilana urement (mass/volume)Ordered By: KAYLEE COULTER on 05-11-2022 Albumin [Mass/Vol] 3.6 g/dL 3.2-5.0 [facility] Serum or plasma creatinine m easurement (mass/volume)Ordered By: KAYLEE COULTER on 05-11-2022 Creatinine [Mass/Vol] 0.88 mg/dL 0.55-1.02 [facility] Comment on above: The validity of the calculated GFR & GFRAA in patients over 70 years has not been determined. Clinical correlation is essential. Thin prep Papanicolaou smear with manual screeningOrdered By: KAYLEE COULTER on 05-11-2022 Thin prep Papanicolaou smear with manual screening 19 U/L 15-37 [facility] Absolute lymphocyte countOrd ered By: Dr. Turk on 03-28-2022 Lymphocytes Auto (Unsp spec) [#/Vol] 2.59 10*3/uL 0.83-4.51 [facility] Basophil percentageOrdered B y: Dr. Turk on 03-28-2022 Basophils/100 WBC (Bld) 0.5 % 0-1 [facility] Chloride [Moles/Vol] 108 mmol/L 98-107 [facility] Eosinophils/100 WBC (Bld) 1.1 % 0-5 [facility] Glucose [Mass/Vol] 101 mg/dL 74-106 [facility] Comment on above: Fasting Glucose resu lt from 100 to 125 mg/dL suggests IMPAIRED HOMEOSTASIS per A.D.A. criteria. Neutrophils (Bld) [#/Vol] 5.2 10*3/uL 2.0-7.7 [facility] Neutrophils/100 WBC (Bld) 60.1 % 47-70 [facility] Potassium [Moles/Vol] 3.9 mmol/L 3.5-5.1 [facility] Comment on above: Slight Hemolysis, Re sult may be falsely increased. Sodium [Moles/Vol] 139 mmol/L 136-145 [facility] WBC (Bld) [#/Vol] 8.6 10*3/uL 4.4-11.0 [facility] Blood erythrocytes count (nu mber/volume)Ordered By: Dr. Turk on 03-28-2022 RBC (Bld) [#/Vol] 4.31 10*6/uL 4.2-5.4 [facility] Blood hemoglobin measurement (mass/volume)Ordered By: Dr. Turk on 03-28-2022 Hemoglobin (Bld) [Mass/Vol] 13.8 g/dL 12.0-15.0 [facility] Blood lymphocytes/100 leukoc ytesOrdered By: Dr. Turk on 03-28-2022 Lymphocytes/100 WBC (Bld) 30.3 % 19-41 [facility] Blood monocytes/100 leukocyt esOrdered By: Dr. Turk on 03-28-2022 Monocytes/100 WBC (Bld) 7.2 % 0-10 [facility] Blood platelet mean volumeOr dered By: Dr. Turk on 03-28-2022 Platelet mean volume (Bld) [Entitic vol] 8.4 fL 6.2-12.0 [facility] Determination of erythrocyte mean corpuscular volume (MCV)Ordered By: Dr. Turk on 03-28-2022 MCV (RBC) [Entitic vol] 96.1 fL 81-99 [facility] Hematocrit Auto (Bld) [Volum e fraction]Ordered By: Dr. Turk on 03-28-2022 Hematocrit (Bld) [Volume fraction] 41.4 % 37-47 [facility] Laboratory - Chemistry and C hemistry - challengeOrdered By: Dr. Turk on 03-28-2022 CO2 [Moles/Vol] 25.0 mmol/L 21.0-32.0 [facility] Urea nitrogen/Creatinine [Mass ratio] 16.6 mg/mg 10-20 [facility] Laboratory - Hematology and Cell countsOrdered By: Dr. Turk on 03-28-2022 Erythrocyte distribution width (RBC) [Entitic vol] 48.9 fL 35.1-43.9 [facility] Erythrocyte distribution width (RBC) [Ratio] 14.0 % 11.6-14.6 [facility] Immature granulocytes/100 WBC (Bld) 0.800 % 0.0-0.9 [facility] Comment on above: IG% - Immature Granu locytes (promyelocytes, myelocytes and metamyelocytes) > 1% indicates that a LEFT SHIFT is Present. MCH (RBC) [Entitic mass] 32.0 pg 27.0-32.0 [facility] Nucleated RBC/100 WBC (Bld) [Ratio] 0 % 0-5 [facility] MCHC Auto (RBC) [Mass/Vol]Or dered By: Dr. Turk on 03-28-2022 MCHC (RBC) [Mass/Vol] 33.3 g/dL 32-36 [facility] No Panel InformationOrdered By: Dr. Turk on 03-28-2022 Troponin I High Sensitivity 6 pg/mL 3.0-54.0 [facility] Comment on above: Please Note: New Shweta t Units and Gender Specific Reference Ranges. For more information see Policy Stat Procedure [place] High Sensitivity Troponin (TNIH) and attachments. Estimated Creatinine Clearance Calc 59.07 ml/min [facility] Estimated GFR (MDRD) Amer 82 mL/min >60 [facility] Comment on above: GFR Calc Estimated GFR (MDRD) Non-Af Amer 67 mL/min >60 [facility] Comment on above: Non- GFR Calc Platelets bldOrdered By: Dr. Turk on 03-28-2022 Platelets (Bld) [#/Vol] 347 10*3/uL 150-450 [facility] Serum or plasma calcium ilana urement (mass/volume)Ordered By: Dr. Turk on 03-28-2022 Calcium [Mass/Vol] 9.1 mg/dL 8.5-10.1 [facility] Serum or plasma creatinine m easurement (mass/volume)Ordered By: Dr. Turk on 03-28-2022 Creatinine [Mass/Vol] 0.90 mg/dL 0.55-1.02 [facility] Comment on above: The validity of the calculated GFR & GFRAA in patients over 70 years has not been determined. Clinical correlation is essential. Serum or plasma urea nitroge n measurement (mass/volume)Ordered By: Dr. Turk on 03-28-2022 Urea nitrogen [Mass/Vol] 15 mg/dL 7-18 [facility] Thin prep Papanicolaou smear with manual screeningOrdered By: Dr. Turk on 03-28-2022 Thin prep Papanicolaou smear with manual screening 6 5-15 [facility] Absolute lymphocyte countOrd ered By: KAYLEE COULTER on 03-21-2022 Lymphocytes Auto (Unsp spec) [#/Vol] 2.70 10*3/uL 0.83-4.51 [facility] Basophil percentageOrdered B y: KAYLEE COULTER on 03-21-2022 Basophils/100 WBC (Bld) 0.6 % 0-1 [facility] Bilirubin [Mass/Vol] 0.20 mg/dL 0.20-1.00 [facility] Comment on above: For patients on eltr ombopag therapy, use of Dimension [place] TBIL is not recommended. Eosinophils/100 WBC (Bld) 1.2 % 0-5 [facility] Neutrophils (Bld) [#/Vol] 5.3 10*3/uL 2.0-7.7 [facility] Neutrophils/100 WBC (Bld) 59.3 % 47-70 [facility] Protein [Mass/Vol] 7.0 g/dL 6.4-8.2 [facility] WBC (Bld) [#/Vol] 8.9 10*3/uL 4.4-11.0 [facility] Blood erythrocytes count (nu mber/volume)Ordered By: KAYLEE COULTER on 03-21-2022 RBC (Bld) [#/Vol] 4.47 10*6/uL 4.2-5.4 [facility] Blood hemoglobin measurement (mass/volume)Ordered By: KAYLEE COULTER on 03-21-2022 Hemoglobin (Bld) [Mass/Vol] 14.1 g/dL 12.0-15.0 [facility] Blood lymphocytes/100 leukoc ytesOrdered By: KAYLEE COULTER on 03-21-2022 Lymphocytes/100 WBC (Bld) 30.4 % 19-41 [facility] Blood monocytes/100 leukocyt esOrdered By: KAYLEE COULTER on 03-21-2022 Monocytes/100 WBC (Bld) 7.7 % 0-10 [facility] Blood platelet mean volumeOr dered By: KAYLEE COULTER on 03-21-2022 Platelet mean volume (Bld) [Entitic vol] 8.8 fL 6.2-12.0 [facility] Determination of erythrocyte mean corpuscular volume (MCV)Ordered By: KAYLEE COULTER on 03-21-2022 MCV (RBC) [Entitic vol] 96.2 fL 81-99 [facility] Direct bilirubinOrdered By: KAYLEE COULTER on 03-21-2022 Bilirubin.direct [Mass/Vol] 0.10 mg/dL 0.00-0.30 [facility] Erythrocyte sedimentation ra teOrdered By: KAYLEE COULTER on 03-21-2022 ESR (Bld) [Velocity] 7 mm/h 0-30 [facility] Hematocrit Auto (Bld) [Volum e fraction]Ordered By: KAYLEE COULTER on 03-21-2022 Hematocrit (Bld) [Volume fraction] 43.0 % 37-47 [facility] Laboratory - Chemistry and C hemistry - challengeOrdered By: KAYLEE COULTER on 03-21-2022 ALP [Catalytic activity/Vol] 81 U/L 45-117 [facility] ALT [Catalytic activity/Vol] 27 U/L 13-56 [facility] Globulin (S) [Mass/Vol] 3.4 g/dL 2.2-4.2 [facility] Laboratory - Hematology and Cell countsOrdered By: KAYLEE COULTER on 03-21-2022 Erythrocyte distribution width (RBC) [Entitic vol] 49.5 fL 35.1-43.9 [facility] Erythrocyte distribution width (RBC) [Ratio] 14.1 % 11.6-14.6 [facility] Immature granulocytes/100 WBC (Bld) 0.800 % 0.0-0.9 [facility] Comment on above: IG% - Immature Granu locytes (promyelocytes, myelocytes and metamyelocytes) > 1% indicates that a LEFT SHIFT is Present. MCH (RBC) [Entitic mass] 31.5 pg 27.0-32.0 [facility] Nucleated RBC/100 WBC (Bld) [Ratio] 0 % 0-5 [facility] MCHC Auto (RBC) [Mass/Vol]Or dered By: KAYLEE COULTER on 03-21-2022 MCHC (RBC) [Mass/Vol] 32.8 g/dL 32-36 [facility] No Panel InformationOrdered By: KAYLEE COULTER on 03-21-2022 Estimated GFR (MDRD) Amer 71 mL/min >60 [facility] Comment on above: GFR Calc Estimated GFR (MDRD) Non-Af Amer 59 mL/min >60 [facility] Comment on above: Non- GFR Calc Platelets bldOrdered By: LORA SY MARYLIN on 03-21-2022 Platelets (Bld) [#/Vol] 366 10*3/uL 150-450 [facility] Serum or plasma C reactive p rotein measurement (mass/volume)Ordered By: KAYLEE COULTER on 03-21-2022 CRP [Mass/Vol] 6.44 mg/L 0.0-3.0 [facility] Comment on above: C-Reactive Protein ( CRP) provides useful information for thediagnosis, therapy and monitoring of inflammatory processesand associated diseases. For the evaluation of Relative Riskfor Cardiovascular Disease, a High Sensitivity CRP (HSCRP)should be ordered. Serum or plasma albumin ilana urement (mass/volume)Ordered By: KAYLEE COULTER on 03-21-2022 Albumin [Mass/Vol] 3.6 g/dL 3.2-5.0 [facility] Serum or plasma creatinine m easurement (mass/volume)Ordered By: KAYLEE COULTER on 03-21-2022 Creatinine [Mass/Vol] 1.02 mg/dL 0.55-1.02 [facility] Comment on above: The validity of the calculated GFR & GFRAA in patients over 70 years has not been determined. Clinical correlation is essential. Thin prep Papanicolaou smear with manual screeningOrdered By: KAYLEE COULTER on 03-21-2022 Thin prep Papanicolaou smear with manual screening 20 U/L 15-37 [facility] Absolute lymphocyte countOrd ered By: Dr. Pinto on 11-23-2021 Lymphocytes Auto (Unsp spec) [#/Vol] 2.49 10*3/uL 0.83-4.51 [facility] Basophil percentageOrdered B y: Dr. Pinto on 11-23-2021 Basophils/100 WBC (Bld) 0.6 % 0-1 [facility] Bilirubin [Mass/Vol] 0.40 mg/dL 0.20-1.00 [facility] Comment on above: For patients on eltr ombopag therapy, use of Dimension [place] TBIL is not recommended. Chloride [Moles/Vol] 106 mmol/L 98-107 [facility] Eosinophils/100 WBC (Bld) 0.5 % 0-5 [facility] Glucose [Mass/Vol] 87 mg/dL 74-106 [facility] Neutrophils (Bld) [#/Vol] 5.4 10*3/uL 2.0-7.7 [facility] Neutrophils/100 WBC (Bld) 61.6 % 47-70 [facility] Potassium [Moles/Vol] 3.9 mmol/L 3.5-5.1 [facility] Protein [Mass/Vol] 7.4 g/dL 6.4-8.2 [facility] Sodium [Moles/Vol] 140 mmol/L 136-145 [facility] WBC (Bld) [#/Vol] 8.8 10*3/uL 4.4-11.0 [facility] Blood erythrocytes count (nu mber/volume)Ordered By: Dr. Pinto on 11-23-2021 RBC (Bld) [#/Vol] 4.37 10*6/uL 4.2-5.4 [facility] Blood hemoglobin measurement (mass/volume)Ordered By: Dr. Pinto on 11-23-2021 Hemoglobin (Bld) [Mass/Vol] 13.7 g/dL 12.0-15.0 [facility] Blood lymphocytes/100 leukoc ytesOrdered By: Dr. Pinto on 11-23-2021 Lymphocytes/100 WBC (Bld) 28.4 % 19-41 [facility] Blood monocytes/100 leukocyt esOrdered By: Dr. Pinto on 11-23-2021 Monocytes/100 WBC (Bld) 8.3 % 0-10 [facility] Blood platelet mean volumeOr dered By: Dr. Pinto on 11-23-2021 Platelet mean volume (Bld) [Entitic vol] 8.8 fL 6.2-12.0 [facility] Determination of erythrocyte mean corpuscular volume (MCV)Ordered By: Dr. Pinto on 11-23-2021 MCV (RBC) [Entitic vol] 96.8 fL 81-99 [facility] Direct bilirubinOrdered By: Dr. Pinto on 11-23-2021 Bilirubin.direct [Mass/Vol] 0.10 mg/dL 0.00-0.30 [facility] Erythrocyte sedimentation ra teOrdered By: Dr. Pinto on 11-23-2021 ESR (Bld) [Velocity] 16 mm/h 0-30 [facility] Hematocrit Auto (Bld) [Volum e fraction]Ordered By: Dr. Pinto on 11-23-2021 Hematocrit (Bld) [Volume fraction] 42.3 % 37-47 [facility] Laboratory - Chemistry and C hemistry - challengeOrdered By: Dr. Pinto on 11-23-2021 ALP [Catalytic activity/Vol] 87 U/L 45-117 [facility] ALT [Catalytic activity/Vol] 24 U/L 13-56 [facility] CO2 [Moles/Vol] 26.0 mmol/L 21.0-32.0 [facility] Globulin (S) [Mass/Vol] 3.8 g/dL 2.2-4.2 [facility] Urea nitrogen/Creatinine [Mass ratio] 18.0 mg/mg 10-20 [facility] Laboratory - Hematology and Cell countsOrdered By: Dr. Pinto on 11-23-2021 Erythrocyte distribution width (RBC) [Entitic vol] 48.9 fL 35.1-43.9 [facility] Erythrocyte distribution width (RBC) [Ratio] 13.6 % 11.6-14.6 [facility] Immature granulocytes/100 WBC (Bld) 0.600 % 0.0-0.9 [facility] Comment on above: IG% - Immature Granu locytes (promyelocytes, myelocytes and metamyelocytes) > 1% indicates that a LEFT SHIFT is Present. MCH (RBC) [Entitic mass] 31.4 pg 27.0-32.0 [facility] Nucleated RBC/100 WBC (Bld) [Ratio] 0 % 0-5 [facility] MCHC Auto (RBC) [Mass/Vol]Or dered By: Dr. Pinto on 11-23-2021 MCHC (RBC) [Mass/Vol] 32.4 g/dL 32-36 [facility] No Panel InformationOrdered By: Dr. Pinto on 11-23-2021 Estimated GFR (MDRD) Amer 78 mL/min >60 [facility] Comment on above: GFR Calc Estimated GFR (MDRD) Non-Af Amer 64 mL/min >60 [facility] Comment on above: Non- GFR Calc Thyroid Stimulating Hormone (TSH) 2.99 uIU/mL 0.358-3.74 [facility] Platelets bldOrdered By: Dr. Pinto on 11-23-2021 Platelets (Bld) [#/Vol] 364 10*3/uL 150-450 [facility] Serum or plasma C reactive p rotein measurement (mass/volume)Ordered By: Dr. Pinto on 11-23-2021 CRP [Mass/Vol] 4.62 mg/L 0.0-3.0 [facility] Comment on above: C-Reactive Protein ( CRP) provides useful information for thediagnosis, therapy and monitoring of inflammatory processesand associated diseases. For the evaluation of Relative Riskfor Cardiovascular Disease, a High Sensitivity CRP (HSCRP)should be ordered. Serum or plasma albumin ilana urement (mass/volume)Ordered By: Dr. Pinto on 11-23-2021 Albumin [Mass/Vol] 3.6 g/dL 3.2-5.0 [facility] Serum or plasma albumin/glob ulin mass ratioOrdered By: Dr. Pinto on 11-23-2021 Albumin/Globulin [Mass ratio] 0.9 {ratio} 0.9-2.4 [facility] Serum or plasma calcium ilana urement (mass/volume)Ordered By: Dr. Pinto on 11-23-2021 Calcium [Mass/Vol] 9.3 mg/dL 8.5-10.1 [facility] Serum or plasma creatinine m easurement (mass/volume)Ordered By: Dr. Pinto on 11-23-2021 Creatinine [Mass/Vol] 0.94 mg/dL 0.55-1.02 [facility] Comment on above: The validity of the calculated GFR & GFRAA in patients over 70 years has not been determined. Clinical correlation is essential. Serum or plasma urea nitroge n measurement (mass/volume)Ordered By: Dr. Pinto on 11-23-2021 Urea nitrogen [Mass/Vol] 17 mg/dL 7-18 [facility] Thin prep Papanicolaou smear with manual screeningOrdered By: Dr. Pinto on 11-23-2021 Thin prep Papanicolaou smear with manual screening 15 U/L 15-37 [facility] Thin prep Papanicolaou smear with manual screening 8 5-15 [facility] Laboratory - Microbiology an d Antimicrobial susceptibilityon 11-03-2021 SARS-CoV-2 (COVID-19) RNA MALIA+probe Ql (Unsp spec) Not detected [facility] Work Phone: Absolute lymphocyte counton 08-08-2021 Lymphocytes Auto (Unsp spec) [#/Vol] 2.53 10*3/uL 0.83-4.51 [facility] Work Phone: Basophil percentageon 2021 Basophils/100 WBC (Bld) 0.5 % 0-1 [facility] Work Phone: Bilirubin [Mass/Vol] 0.30 mg/dL 0.20-1.00 [facility] Work Phone: Comment on above: For patients on eltr ombopag therapy, use of Dimension [place] TBIL is not recommended. Eosinophils/100 WBC (Bld) 0.9 % 0-5 [facility] Work Phone: Neutrophils (Bld) [#/Vol] 4.8 10*3/uL 2.0-7.7 [facility] Work Phone: Neutrophils/100 WBC (Bld) 59.0 % 47-70 [facility] Work Phone: Protein [Mass/Vol] 7.2 g/dL 6.4-8.2 [facility] Work Phone: WBC (Bld) [#/Vol] 8.1 10*3/uL 4.4-11.0 [facility] Work Phone: Blood erythrocytes count (nu mber/volume)on 08-08-2021 RBC (Bld) [#/Vol] 4.56 10*6/uL 4.2-5.4 [facility] Work Phone: Blood hemoglobin measurement (mass/volume)on 08-08-2021 Hemoglobin (Bld) [Mass/Vol] 14.6 g/dL 12.0-15.0 [facility] Work Phone: Blood lymphocytes/100 leukoc yteson 08-08-2021 Lymphocytes/100 WBC (Bld) 31.2 % 19-41 [facility] Work Phone: Blood monocytes/100 leukocyt eson 08-08-2021 Monocytes/100 WBC (Bld) 7.8 % 0-10 [facility] Work Phone: Blood platelet mean volumeon 08-08-2021 Platelet mean volume (Bld) [Entitic vol] 8.9 fL 6.2-12.0 [facility] Work Phone: [phone] Determination of erythrocyte mean corpuscular volume (MCV)on 08-08-2021 MCV (RBC) [Entitic vol] 92.5 fL 81-99 [facility] Work Phone: Direct bilirubinon 2 Bilirubin.direct [Mass/Vol] 0.13 mg/dL 0.00-0.30 [facility] Work Phone: [phone] Erythrocyte sedimentation ra harvey 08-08-2021 ESR (Bld) [Velocity] 22 mm/h 0-30 [facility] Work Phone: Hematocrit Auto (Bld) [Volum e fraction]on 08-08-2021 Hematocrit (Bld) [Volume fraction] 42.2 % 37-47 [facility] Work Phone: [phone] Laboratory - Chemistry and C hemistry - challengeon 08-08-2021 ALP [Catalytic activity/Vol] 76 U/L 45-117 [facility] Work Phone: ALT [Catalytic activity/Vol] 24 U/L 13-56 [facility] Work Phone: Globulin (S) [Mass/Vol] 3.6 g/dL 2.2-4.2 [facility] Work Phone: [phone] Laboratory - Hematology and Cell countson 08-08-2021 Erythrocyte distribution width (RBC) [Entitic vol] 45.4 fL 35.1-43.9 [facility] Work Phone: [phone] Erythrocyte distribution width (RBC) [Ratio] 13.4 % 11.6-14.6 [facility] Work Phone: Immature granulocytes/100 WBC (Bld) 0.600 % 0.0-0.9 [facility] Work Phone: Comment on above: IG% - Immature Granu locytes (promyelocytes, myelocytes and metamyelocytes) > 1% indicates that a LEFT SHIFT is Present. MCH (RBC) [Entitic mass] 32.0 pg 27.0-32.0 [facility] Work Phone: Nucleated RBC/100 WBC (Bld) [Ratio] 0 % 0-5 [facility] Work Phone: MCHC Auto (RBC) [Mass/Vol]on 08-08-2021 MCHC (RBC) [Mass/Vol] 34.6 g/dL 32-36 [facility] Work Phone: No Panel Informationon 08-08 Estimated GFR (MDRD) Amer 79 mL/min >60 [facility] Work Phone: Comment on above: GFR Calc Estimated GFR (MDRD) Non-Af Amer 65 mL/min >60 [facility] Work Phone: Comment on above: Non- GFR Calc Platelets bldon 08-08-2021 Platelets (Bld) [#/Vol] 360 10*3/uL 150-450 [facility] Work Phone: Serum or plasma C reactive p rotein measurement (mass/volume)on 08-08-2021 CRP [Mass/Vol] 6.48 mg/L 0.0-3.0 [facility] Work Phone: Comment on above: C-Reactive Protein ( CRP) provides useful information for thediagnosis, therapy and monitoring of inflammatory processesand associated diseases. For the evaluation of Relative Riskfor Cardiovascular Disease, a High Sensitivity CRP (HSCRP)should be ordered. Serum or plasma albumin ilana urement (mass/volume)on 08-08-2021 Albumin [Mass/Vol] 3.6 g/dL 3.2-5.0 [facility] Work Phone: Serum or plasma creatinine m easurement (mass/volume)on 08-08-2021 Creatinine [Mass/Vol] 0.93 mg/dL 0.55-1.02 [facility] Work Phone: Comment on above: The validity of the calculated GFR & GFRAA in patients over 70 years has not been determined. Clinical correlation is essential. Thin prep Papanicolaou smear with manual screeningon 08-08-2021 Thin prep Papanicolaou smear with manual screening 19 U/L 15-37 [facility] Work Phone: Laboratory - Microbiology an d Antimicrobial susceptibilityon 06-26-2021 SARS-CoV-2 (COVID-19) RNA MALIA+probe Ql (Unsp spec) Detected [facility] Work Phone: No Panel Informationon 06-26 Influenza Types A,B Rapid (Clinic) Not detected [facility] Work Phone: No Panel Informationon 05-28 Estimated GFR (MDRD) Amer 86 mL/min >60 [facility] Work Phone: Comment on above: GFR Calc Estimated GFR (MDRD) Non-Af Amer 71 mL/min >60 [facility] Work Phone: Comment on above: Non- GFR Calc Serum or plasma creatinine m easurement (mass/volume)on 05-28-2021 Creatinine [Mass/Vol] 0.86 mg/dL 0.55-1.02 [facility] Work Phone: Comment on above: The validity of the calculated GFR & GFRAA in patients over 70 years has not been determined. Clinical correlation is essential. Absolute lymphocyte counton 05-06-2021 Lymphocytes Auto (Unsp spec) [#/Vol] 2.53 10*3/uL 0.83-4.51 [facility] Work Phone: Basophil percentageon 2021 Basophils/100 WBC (Bld) 0.5 % 0-1 [facility] Work Phone: Bilirubin [Mass/Vol] 0.20 mg/dL 0.20-1.00 [facility] Work Phone: Comment on above: For patients on eltr ombopag therapy, use of Dimension [place] TBIL is not recommended. Eosinophils/100 WBC (Bld) 0.9 % 0-5 [facility] Work Phone: Neutrophils (Bld) [#/Vol] 6.3 10*3/uL 2.0-7.7 [facility] Work Phone: Neutrophils/100 WBC (Bld) 64.1 % 47-70 [facility] Work Phone: Protein [Mass/Vol] 7.3 g/dL 6.4-8.2 [facility] Work Phone: WBC (Bld) [#/Vol] 9.8 10*3/uL 4.4-11.0 [facility] Work Phone: Blood erythrocytes count (nu mber/volume)on 05-06-2021 RBC (Bld) [#/Vol] 4.37 10*6/uL 4.2-5.4 [facility] Work Phone: Blood hemoglobin measurement (mass/volume)on 05-06-2021 Hemoglobin (Bld) [Mass/Vol] 13.9 g/dL 12.0-15.0 [facility] Work Phone: Blood lymphocytes/100 leukoc yteson 05-06-2021 Lymphocytes/100 WBC (Bld) 25.9 % 19-41 [facility] Work Phone: Blood monocytes/100 leukocyt eson 05-06-2021 Monocytes/100 WBC (Bld) 7.4 % 0-10 [facility] Work Phone: Blood platelet mean volumeon 05-06-2021 Platelet mean volume (Bld) [Entitic vol] 8.4 fL 6.2-12.0 [facility] Work Phone: Determination of erythrocyte mean corpuscular volume (MCV)on 05-06-2021 MCV (RBC) [Entitic vol] 90.6 fL 81-99 [facility] Work Phone: Direct bilirubinon Bilirubin.direct [Mass/Vol] 0.12 mg/dL 0.00-0.30 [facility] Work Phone: [phone] Erythrocyte sedimentation ra harvey 05-06-2021 ESR (Bld) [Velocity] 14 mm/h 0-30 [facility] Work Phone: [phone] Hematocrit Auto (Bld) [Volum e fraction]on 05-06-2021 Hematocrit (Bld) [Volume fraction] 39.6 % 37-47 [facility] Work Phone: [phone] Laboratory - Chemistry and C hemistry - challengeon 05-06-2021 ALP [Catalytic activity/Vol] 83 U/L 45-117 [facility] Work Phone: [phone] ALT [Catalytic activity/Vol] 35 U/L 13-56 [facility] Work Phone: [phone] Globulin (S) [Mass/Vol] 3.6 g/dL 2.2-4.2 [facility] Work Phone: [phone] Laboratory - Hematology and Cell countson 05-06-2021 Erythrocyte distribution width (RBC) [Entitic vol] 44.0 fL 35.1-43.9 [facility] Work Phone: [phone] Erythrocyte distribution width (RBC) [Ratio] 13.3 % 11.6-14.6 [facility] Work Phone: [phone] Immature granulocytes/100 WBC (Bld) 1.200 % 0.0-0.9 [facility] Work Phone: [phone] Comment on above: IG% - Immature Granu locytes (promyelocytes, myelocytes and metamyelocytes) > 1% indicates that a LEFT SHIFT is Present. MCH (RBC) [Entitic mass] 31.8 pg 27.0-32.0 [facility] Work Phone: [phone] Nucleated RBC/100 WBC (Bld) [Ratio] 0 % 0-5 [facility] Work Phone: [phone] MCHC Auto (RBC) [Mass/Vol]on 05-06-2021 MCHC (RBC) [Mass/Vol] 35.1 g/dL 32-36 [facility] Work Phone: No Panel Informationon 05-06 Estimated GFR (MDRD) Amer 63 mL/min >60 [facility] Work Phone: Comment on above: GFR Calc Estimated GFR (MDRD) Non-Af Amer 52 mL/min >60 [facility] Work Phone: Comment on above: Non- GFR Calc Platelets bldon 05-06-2021 Platelets (Bld) [#/Vol] 328 10*3/uL 150-450 [facility] Work Phone: Serum or plasma C reactive p rotein measurement (mass/volume)on 05-06-2021 CRP [Mass/Vol] 8.93 mg/L 0.0-3.0 [facility] Work Phone: Comment on above: C-Reactive Protein ( CRP) provides useful information for thediagnosis, therapy and monitoring of inflammatory processesand associated diseases. For the evaluation of Relative Riskfor Cardiovascular Disease, a High Sensitivity CRP (HSCRP)should be ordered. Serum or plasma albumin ilaan urement (mass/volume)on 05-06-2021 Albumin [Mass/Vol] 3.7 g/dL 3.2-5.0 [facility] Work Phone: Serum or plasma creatinine m easurement (mass/volume)on 05-06-2021 Creatinine [Mass/Vol] 1.13 mg/dL 0.55-1.02 [facility] Work Phone: Comment on above: The validity of the calculated GFR & GFRAA in patients over 70 years has not been determined. Clinical correlation is essential. Thin prep Papanicolaou smear with manual screeningon 05-06-2021 Thin prep Papanicolaou smear with manual screening 19 U/L 15-37 [facility] Work Phone: No Panel Informationon 04-26 Respiratory Panel (PCR) [facility] Work Phone: Laboratory - Microbiology an d Antimicrobial susceptibilityon 04-23-2021 SARS-CoV-2 (COVID-19) RNA MALIA+probe Ql (Unsp spec) Not detected [facility] Work Phone: No Panel Informationon 04-23 Influenza Types A,B Rapid (Clinic) Not detected [facility] Work Phone: Laboratory - Microbiology an d Antimicrobial susceptibilityon 03-04-2021 SARS-CoV-2 (COVID-19) RNA MALIA+probe Ql (Unsp spec) Not detected [facility] Work Phone: Absolute lymphocyte counton 02-02-2021 Lymphocytes Auto (Unsp spec) [#/Vol] 2.06 10*3/uL 0.83-4.51 [facility] Work Phone: Basophil percentageon 2020 Bilirubin [Mass/Vol] 0.20 mg/dL 0.20-1.00 [facility] Work Phone: Comment on above: For patients on eltr ombopag therapy, use of [employer] [place] TBIL is not recommended. Eosinophils/100 WBC (Bld) 0.8 % 0-5 [facility] Work Phone: [phone] Neutrophils (Bld) [#/Vol] 5.5 10*3/uL 2.0-7.7 [facility] Work Phone: [phone] Protein [Mass/Vol] 7.3 g/dL 6.4-8.2 [facility] Work Phone: WBC (Bld) [#/Vol] 8.4 10*3/uL 4.4-11.0 [facility] Work Phone: [phone] Blood erythrocytes count (nu mber/volume)on 02-02-2021 RBC (Bld) [#/Vol] 4.45 10*6/uL 4.2-5.4 [facility] Work Phone: [phone] Blood hemoglobin measurement (mass/volume)on 02-02-2021 Hemoglobin (Bld) [Mass/Vol] 13.7 g/dL 12.0-15.0 [facility] Work Phone: Blood lymphocytes/100 leukoc yteson 02-02-2021 Lymphocytes/100 WBC (Bld) 24.5 % 19-41 [facility] Work Phone: Blood monocytes/100 leukocyt eson 02-02-2021 Monocytes/100 WBC (Bld) 7.1 % 0-10 [facility] Work Phone: Blood platelet mean volumeon 02-02-2021 Platelet mean volume (Bld) [Entitic vol] 8.8 fL 6.2-12.0 [facility] Work Phone: [phone] Determination of erythrocyte mean corpuscular volume (MCV)on 02-02-2021 MCV (RBC) [Entitic vol] 93.7 fL 81-99 [facility] Work Phone: Direct bilirubinon Bilirubin.direct [Mass/Vol] 0.06 mg/dL 0.00-0.30 [facility] Work Phone: [phone] Erythrocyte sedimentation ra harvey 02-02-2021 ESR (Bld) [Velocity] 11 mm/h 0-30 [facility] Work Phone: Hematocrit Auto (Bld) [Volum e fraction]on 02-02-2021 Hematocrit (Bld) [Volume fraction] 41.7 % 37-47 [facility] Work Phone: [phone] Laboratory - Chemistry and C hemistry - challengeon 02-02-2021 ALP [Catalytic activity/Vol] 77 U/L 45-117 [facility] Work Phone: ALT [Catalytic activity/Vol] 24 U/L 13-56 [facility] Work Phone: Globulin (S) [Mass/Vol] 3.7 g/dL 2.2-4.2 [facility] Work Phone: [phone] Laboratory - Hematology and Cell countson 02-02-2021 Basophils/100 WBC (Unsp spec) 0.4 % 0-1 [facility] Work Phone: [phone] Erythrocyte distribution width (RBC) [Entitic vol] 45.1 fL 35.1-43.9 [facility] Work Phone: Erythrocyte distribution width (RBC) [Ratio] 13.2 % 11.6-14.6 [facility] Work Phone: Immature granulocytes/100 WBC (Bld) 1.400 % 0.0-0.9 [facility] Work Phone: Comment on above: IG% - Immature Granu locytes (promyelocytes, myelocytes and metamyelocytes) > 1% indicates that a LEFT SHIFT is Present. MCH (RBC) [Entitic mass] 30.8 pg 27.0-32.0 [facility] Work Phone: Neutrophils/100 WBC (Bld) 65.8 % 47-70 [facility] Work Phone: Nucleated RBC/100 WBC (Bld) [Ratio] 0 % 0-5 [facility] Work Phone: MCHC Auto (RBC) [Mass/Vol]on 02-02-2021 MCHC (RBC) [Mass/Vol] 32.9 g/dL 32-36 [facility] Work Phone: No Panel Informationon 02-02 Estimated GFR (MDRD) Amer 81 mL/min >60 [facility] Work Phone: Comment on above: GFR Calc Estimated GFR (MDRD) Non-Af Amer 67 mL/min >60 [facility] Work Phone: Comment on above: Non- GFR Calc Platelets bldon 02-02-2021 Platelets (Bld) [#/Vol] 334 10*3/uL 150-450 [facility] Work Phone: Serum or plasma C reactive p rotein measurement (mass/volume)on 02-02-2021 CRP [Mass/Vol] 3.63 mg/L 0.0-3.0 [facility] Work Phone: Comment on above: C-Reactive Protein ( CRP) provides useful information for thediagnosis, therapy and monitoring of inflammatory processesand associated diseases. For the evaluation of Relative Riskfor Cardiovascular Disease, a High Sensitivity CRP (HSCRP)should be ordered. Serum or plasma albumin ilana urement (mass/volume)on 02-02-2021 Albumin [Mass/Vol] 3.6 g/dL 3.2-5.0 [facility] Work Phone: Serum or plasma creatinine m easurement (mass/volume)on 02-02-2021 Creatinine [Mass/Vol] 0.91 mg/dL 0.55-1.02 [facility] Work Phone: Comment on above: The validity of the calculated GFR & GFRAA in patients over 70 years has not been determined. Clinical correlation is essential. Thin prep Papanicolaou smear with manual screeningon 02-02-2021 Thin prep Papanicolaou smear with manual screening 14 U/L [facility] Work Phone: Liver ultrasound attenuation by transient elastography [facility] No Panel Information Respiratory Panel (PCR) [facility] Work Phone: Vital Signs Date Time Vital Sign Value Performing Clinician Facility 05-29-2024 12:58-0400 Body height 165.1 cm Summer Funez MD Work Phone: [facility] 05-29-2024 12:58-0400 Body mass index (BMI) [Ratio] 39.6 kg/m2 Summer Funez MD Work Phone: [facility] 05-29-2024 12:58-0400 Body temperature 98.1 [degF] Summer Funez MD Work Phone: [facility] 05-29-2024 12:58-0400 Body weight 107.95 kg Summer Funez MD Work Phone: [facility] 05-29-2024 12:58-0400 Diastolic blood pressure 91 mm[Hg] Summer Funez MD Work Phone: [facility] 05-29-2024 12:58-0400 Heart rate 68 /min Summer Funez MD Work Phone: [facility] 05-29-2024 12:58-0400 Respiratory rate 18 /min Summer Funez MD Work Phone: [facility] 05-29-2024 12:58-0400 SaO2% (BldA) [Mass fraction] 93 % Summer Funez MD Work Phone: [facility] 05-29-2024 12:58-0400 Systolic blood pressure 147 mm[Hg] Summer Funez MD Work Phone: [facility] 05-19-2024 08:32-0400 Body mass index (BMI) [Ratio] 38.9 kg/m2 Summer Funez MD Work Phone: [facility] 05-19-2024 08:32-0400 Body temperature 97.4 [degF] Summer Funez MD Work Phone: [facility] 05-19-2024 08:32-0400 Body weight 106.14 kg Summer Funez MD Work Phone: [facility] 05-19-2024 08:32-0400 Diastolic blood pressure 79 mm[Hg] Summer Funez MD Work Phone: [facility] 05-19-2024 08:32-0400 Heart rate 75 /min Summer Funez MD Work Phone: [facility] 05-19-2024 08:32-0400 Respiratory rate 20 /min Summer Funez MD Work Phone: [facility] 05-19-2024 08:32-0400 SaO2% (BldA) [Mass fraction] 97 % Summer Funez MD Work Phone: [facility] 05-19-2024 08:32-0400 Systolic blood pressure 117 mm[Hg] Summer Funez MD Work Phone: [facility] 04-28-2024 11:06-0400 Body height 165.1 cm Summer Funez MD Work Phone: [facility] 04-28-2024 11:06-0400 Body mass index (BMI) [Ratio] 39.3 kg/m2 Summer Funez MD Work Phone: [facility] 04-28-2024 11:06-0400 Body weight 107.16 kg Summer Funez MD Work Phone: [facility] 04-28-2024 11:06-0400 Diastolic blood pressure 70 mm[Hg] Summer Funez MD Work Phone: [facility] 04-28-2024 11:06-0400 Heart rate 72 /min Summer Funez MD Work Phone: [facility] 04-28-2024 11:06-0400 Respiratory rate 18 /min Summer Funez MD Work Phone: [facility] 04-28-2024 11:06-0400 SaO2% (BldA) [Mass fraction] 96 % Summer Funez MD Work Phone: [facility] 04-28-2024 11:06-0400 Systolic blood pressure 123 mm[Hg] Summer Funez MD Work Phone: [facility] 04-07-2024 09:08-0500 Body temperature 98.9 [degF] Summer Funez MD Work Phone: [facility] 04-07-2024 09:08-0500 Diastolic blood pressure 76 mm[Hg] Summer Funez MD Work Phone: [facility] 04-07-2024 09:08-0500 Heart rate 82 /min Summer Funez MD Work Phone: [facility] 04-07-2024 09:08-0500 Respiratory rate 18 /min Summer Funez MD Work Phone: [facility] 04-07-2024 09:08-0500 SaO2% (BldA) [Mass fraction] 96 % Summer Funez MD Work Phone: [facility] 04-07-2024 09:08-0500 Systolic blood pressure 91 mm[Hg] Summer Funez MD Work Phone: [facility] 04-07-2024 07:57-0500 Body mass index (BMI) [Ratio] 38.5 kg/m2 Summer Funez MD Work Phone: [facility] 04-07-2024 07:57-0500 Body weight 104.9 kg Summer Funez MD Work Phone: [facility] 04-01-2024 11:12-0500 Body mass index (BMI) [Ratio] 38.9 kg/m2 Summer Funez MD Work Phone: [facility] 04-01-2024 11:12-0500 Body weight 106.31 kg Summer Funez MD Work Phone: [phone] [place] [address] 01-12-2024 08:31-0500 Body mass index (BMI) [Ratio] 36.6 kg/m2 Summer Funez MD Work Phone: [phone] [place] [address] 01-12-2024 08:31-0500 Body temperature 98.7 [degF] Summer Funez MD Work Phone: [facility] 01-12-2024 08:31-0500 Body weight 99.84 kg Summer Funez MD Work Phone: [facility] 01-12-2024 08:31-0500 Diastolic blood pressure 80 mm[Hg] Summer Funez MD Work Phone: [facility] 01-12-2024 08:31-0500 Heart rate 97 /min Summer Funez MD Work Phone: [facility] 01-12-2024 08:31-0500 SaO2% (BldA) [Mass fraction] 97 % Summer Funez MD Work Phone: [facility] 01-12-2024 08:31-0500 Systolic blood pressure 130 mm[Hg] Summer Funez MD Work Phone: [facility] 01-07-2024 08:00-0500 Body temperature 97.8 [degF] Summer Funez MD Work Phone: [facility] 01-07-2024 08:00-0500 Diastolic blood pressure 70 mm[Hg] Summer Funez MD Work Phone: [facility] 01-07-2024 08:00-0500 Heart rate 74 /min Summer Funez MD Work Phone: [facility] 01-07-2024 08:00-0500 Respiratory rate 18 /min Summer Funez MD Work Phone: [facility] 01-07-2024 08:00-0500 SaO2% (BldA) [Mass fraction] 95 % Summer Funez MD Work Phone: [facility] 01-07-2024 08:00-0500 Systolic blood pressure 98 mm[Hg] Summer Funez MD Work Phone: [facility] 01-07-2024 06:03-0500 Body mass index (BMI) [Ratio] 37 kg/m2 Summer Funez MD Work Phone: [facility] 01-07-2024 06:03-0500 Body weight 101 kg Summer Funez MD Work Phone: [facility] 05-09-2023 05:51-0400 Body height 165.[address] Leon Pinto Work Phone: [facility] 05-09-2023 05:51-0400 Body mass index (BMI) [Ratio] 38.9 kg/m2 Dr. Leon Pinto Work Phone: [facility] 05-09-2023 05:51-0400 Body temperature 97.2 [degF] Dr. Leon Pinto Work Phone: [facility] 05-09-2023 05:51-0400 Body weight 106.[address] Leon Pinto Work Phone: [facility] 05-09-2023 05:51-0400 Diastolic blood pressure 91 mm[Hg] Dr. Leon Pinto Work Phone: [facility] 05-09-2023 05:51-0400 Heart rate 95 /min Dr. Leon Pinto Work Phone: [facility] 05-09-2023 05:51-0400 Respiratory rate 20 /min Dr. Leon Pinto Work Phone: [facility] 05-09-2023 05:51-0400 SaO2% (BldA) [Mass fraction] 95 % Dr. Leon Pinto Work Phone: [facility] 05-09-2023 05:51-0400 Systolic blood pressure 131 mm[Hg] Dr. Leon Pinto Work Phone: [facility] 05-04-2023 11:12-0400 Diastolic blood pressure 70 mm[Hg] Sangeetha Silva MD Work Phone: [facility] 05-04-2023 11:12-0400 Heart rate 65 /min Sangeetha Silva MD Work Phone: [facility] 05-04-2023 11:12-0400 Respiratory rate 18 /min Sangeetha Silva MD Work Phone: [facility] 05-04-2023 11:12-0400 SaO2% (BldA) [Mass fraction] 94 % Sangeetha Silva MD Work Phone: [facility] 05-04-2023 11:12-0400 Systolic blood pressure 127 mm[Hg] Sangeetha Silva MD Work Phone: [facility] 05-04-2023 10:06-0400 Body temperature 97.81 [degF] Sangeetha Silva MD Work Phone: [facility] 05-04-2023 10:06-0400 Body weight 110.7 kg Sangeetha Silva MD Work Phone: [facility] 04-18-2023 09:31-0500 Body height 165.1 cm Phyllis Almeida PA-C Work Phone: [facility] 04-18-2023 09:31-0500 Body weight 110.68 kg Phyllis Almeida PA-C Work Phone: [facility] 04-18-2023 09:31-0500 Diastolic blood pressure 76 mm[Hg] Phyllis Almeida PA-C Work Phone: [facility] 04-18-2023 09:31-0500 Heart rate 74 /min Phyllis Almeida PA-C Work Phone: [facility] 04-18-2023 09:31-0500 Systolic blood pressure 132 mm[Hg] Phyllis Almeida PA-C Work Phone: [facility] 10-25-2022 09:36-0400 Body height 165.[address] Leon Pinto Work Phone: [facility] 10-25-2022 09:36-0400 Body mass index (BMI) [Ratio] 41.1 kg/m2 Dr. Leon Pinto Work Phone: [facility] 10-25-2022 09:36-0400 Body weight 112.[address] Leon Pinto Work Phone: [facility] 08-03-2022 09:19-0400 Body height 165.[address] Leon Pinto Work Phone: [facility] 08-03-2022 09:19-0400 Body mass index (BMI) [Ratio] 40.5 kg/m2 Dr. Leon Pinto Work Phone: [facility] 08-03-2022 09:19-0400 Body temperature 97.7 [degF] Dr. Leon Pinto Work Phone: [facility] 08-03-2022 09:19-0400 Body weight 110.[address] Leon Pinto Work Phone: [facility] 08-03-2022 09:19-0400 Diastolic blood pressure 90 mm[Hg] Dr. Leon Pinto Work Phone: [facility] 08-03-2022 09:19-0400 Heart rate 93 /min Dr. Leon Pinto Work Phone: [facility] 08-03-2022 09:19-0400 Respiratory rate 16 /min Dr. Leon Pinto Work Phone: [facility] 08-03-2022 09:19-0400 SaO2% (BldA) [Mass fraction] 95 % Dr. Leon Pinto Work Phone: [facility] 08-03-2022 09:19-0400 Systolic blood pressure 140 mm[Hg] Dr. Leon Pinto Work Phone: [phone] [place] [address] 05-11-2022 07:51-0400 Body height 165.[address] Leon Pinto Work Phone: [phone] [place] [address] 05-11-2022 07:51-0400 Body mass index (BMI) [Ratio] 42.5 kg/m2 Dr. Leon Pinto Work Phone: [phone] [place] [address] 05-11-2022 07:51-0400 Body temperature 97.8 [degF] Dr. Leon Pinto Work Phone: [phone] [address] 05-11-2022 07:51-0400 Body weight 116.[address] Leon Pinto Work Phone: [phone] [address] 05-11-2022 07:51-0400 Diastolic blood pressure 65 mm[Hg] Dr. Leon Pinto Work Phone: 7(775)101-112381 [address] 05-11-2022 07:51-0400 Heart rate 92 /min Dr. Leon Pinto Work Phone: 7(362)276-577481 [address] 05-11-2022 07:51-0400 Respiratory rate 18 /min Dr. Leon Pinto Work Phone: [facility] 05-11-2022 07:51-0400 SaO2% (BldA) [Mass fraction] 95 % Dr. Leon Pinto Work Phone: 3(639)362-475836 [place] [address] 05-11-2022 07:51-0400 Systolic blood pressure 136 mm[Hg] Dr. Leon Pinto Work Phone: 5(330)951-299281 [address] 03-28-2022 21:17-0500 Body temperature 97 [degF] Dr. Leon Pinto Work Phone: 2(032)798-048036 [place] [address] 03-28-2022 21:17-0500 Diastolic blood pressure 76 mm[Hg] Dr. Leon Pinto Work Phone: [facility] 03-28-2022 21:17-0500 Heart rate 64 /min Dr. Leon Pinto Work Phone: [facility] 03-28-2022 21:17-0500 Respiratory rate 18 /min Dr. Leon Pinto Work Phone: [facility] 03-28-2022 21:17-0500 SaO2% (BldA) [Mass fraction] 99 % Dr. Leon Pinto Work Phone: [facility] 03-28-2022 21:17-0500 Systolic blood pressure 138 mm[Hg] Dr. Leon Pinto Work Phone: [facility] 03-28-2022 17:58-0500 Body height 165.[address] Leon Pinto Work Phone: 5(034)234-177136 [place] [address] 03-28-2022 17:58-0500 Body mass index (BMI) [Ratio] 42.7 kg/m2 Dr. Leon Pinto Work Phone: 7(283)166-240036 [place] [address] 03-28-2022 17:58-0500 Body weight 116.[address] Leon Pinto Work Phone: [facility] 03-13-2022 10:50-0500 Body temperature 99.1 [degF] Dr. Leon Pinto Work Phone: [facility] 03-13-2022 10:50-0500 Diastolic blood pressure 86 mm[Hg] Dr. Leon Pinto Work Phone: [facility] 03-13-2022 10:50-0500 Heart rate 81 /min Dr. Leon Pinto Work Phone: [facility] 03-13-2022 10:50-0500 Respiratory rate 18 /min Dr. Leon Pinto Work Phone: [facility] 03-13-2022 10:50-0500 SaO2% (BldA) [Mass fraction] 97 % Dr. Leon Pinto Work Phone: [facility] 03-13-2022 10:50-0500 Systolic blood pressure 123 mm[Hg] Dr. Leon Pinto Work Phone: [facility] 03-13-2022 08:57-0500 Body height 165.[address] Leon Pinto Work Phone: 4(688)063-145636 [place] [address] 03-13-2022 08:57-0500 Body mass index (BMI) [Ratio] 42 kg/m2 Dr. Leon Pinto Work Phone: 4(563)099-380436 [place] [address] 03-13-2022 08:57-0500 Body weight 114.[address] Leon Pinto Work Phone: 9(169)796-000836 [place] [address] 01-05-2022 10:54-0500 Body mass index (BMI) [Ratio] 39.9 kg/m2 Dr. Leon Pinto Work Phone: 8(288)499-352736 [place] [address] 01-05-2022 10:54-0500 Body weight 108.[address] Leon Pinto Work Phone: 5(784)133-671136 [place] [address] 11-07-2021 09:43-0400 Body height 165.[address] Leon Pinto Work Phone: [facility] Work Phone: 11-07-2021 09:43-0400 Body mass index (BMI) [Ratio] 39.8 kg/m2 Dr. Leon Pinto Work Phone: [facility] Work Phone: 11-07-2021 09:43-0400 Body temperature 97.7 [degF] Dr. Leon Pinto Work Phone: [facility] Work Phone: 11-07-2021 09:43-0400 Body weight 108.[address] Leon Pinto Work Phone: [facility] Work Phone: 11-07-2021 09:43-0400 Diastolic blood pressure 78 mm[Hg] Dr. Leon Pinto Work Phone: [facility] Work Phone: 11-07-2021 09:43-0400 Heart rate 78 /min Dr. Leon Pinto Work Phone: [facility] Work Phone: 11-07-2021 09:43-0400 Respiratory rate 16 /min Dr. Leon Pinto Work Phone: [facility] Work Phone: 11-07-2021 09:43-0400 SaO2% (BldA) [Mass fraction] 97 % Dr. Leon Pinto Work Phone: [facility] Work Phone: 11-07-2021 09:43-0400 Systolic blood pressure 132 mm[Hg] Dr. Leon Pinto Work Phone: [facility] Work Phone: 06-27-2021 15:56-0400 Body temperature 99.2 [degF] Dr. Leon Pinto Work Phone: [facility] Work Phone: 06-27-2021 15:56-0400 Diastolic blood pressure 77 mm[Hg] Dr. Leon Pinto Work Phone: [facility] Work Phone: 06-27-2021 15:56-0400 Heart rate 69 /min Dr. Leon Pinto Work Phone: [facility] Work Phone: 06-27-2021 15:56-0400 Respiratory rate 18 /min Dr. Leon Pinto Work Phone: [facility] Work Phone: 06-27-2021 15:56-0400 SaO2% (BldA) [Mass fraction] 94 % Dr. Leon Pinto Work Phone: [facility] Work Phone: 06-27-2021 15:56-0400 Systolic blood pressure 111 mm[Hg] Dr. Leon Pinto Work Phone: [facility] Work Phone: 06-27-2021 14:25-0400 Body height 165.[address] Leon Pinto Work Phone: [facility] Work Phone: 06-27-2021 14:25-0400 Body mass index (BMI) [Ratio] 40.7 kg/m2 Dr. Leon Pinto Work Phone: [facility] Work Phone: 06-27-2021 14:25-0400 Body weight 111.[address] Leon Pinto Work Phone: [facility] Work Phone: 06-26-2021 11:08-0400 Body temperature 99.9 [degF] Dr. Leon Pinto Work Phone: [facility] Work Phone: 06-26-2021 11:08-0400 Diastolic blood pressure 80 mm[Hg] Dr. Leon Pinto Work Phone: [facility] Work Phone: 06-26-2021 11:08-0400 Heart rate 101 /min Dr. Leon Pinto Work Phone: [facility] Work Phone: 06-26-2021 11:08-0400 Respiratory rate 15 /min Dr. Leon Pinto Work Phone: [facility] Work Phone: 06-26-2021 11:08-0400 SaO2% (BldA) [Mass fraction] 97 % Dr. Leon Pinto Work Phone: [facility] Work Phone: 06-26-2021 11:08-0400 Systolic blood pressure 146 mm[Hg] Dr. Leon Pinto Work Phone: [facility] Work Phone: 06-26-2021 11:08-0400 Body temperature 99.9 [degF] Dr. Leon Pinto Work Phone: [facility] Work Phone: 06-26-2021 11:08-0400 Diastolic blood pressure 80 mm[Hg] Dr. Leon Pinto Work Phone: [facility] Work Phone: 06-26-2021 11:08-0400 Heart rate 101 /min Dr. Leon Pinto Work Phone: [facility] Work Phone: 06-26-2021 11:08-0400 Respiratory rate 15 /min Dr. Leon Pinto Work Phone: [facility] Work Phone: 06-26-2021 11:08-0400 SaO2% (BldA) [Mass fraction] 97 % Dr. Leon Pinto Work Phone: [facility] Work Phone: 06-26-2021 11:08-0400 Systolic blood pressure 146 mm[Hg] Dr. Leon Pinto Work Phone: [facility] Work Phone: 04-23-2021 10:30-0500 Body temperature 97.7 [degF] Dr. Leon Pinto Work Phone: [facility] Work Phone: 04-23-2021 10:30-0500 Diastolic blood pressure 82 mm[Hg] Dr. Leon Pinto Work Phone: [facility] Work Phone: 04-23-2021 10:30-0500 Heart rate 94 /min Dr. Leon Pinto Work Phone: [facility] Work Phone: 04-23-2021 10:30-0500 Respiratory rate 18 /min Dr. Leon Pinto Work Phone: [facility] Work Phone: 04-23-2021 10:30-0500 SaO2% (BldA) [Mass fraction] 97 % Dr. Leon Pinto Work Phone: [facility] Work Phone: 04-23-2021 10:30-0500 Systolic blood pressure 138 mm[Hg] Dr. Leon Pinto Work Phone: [facility] Work Phone: 04-23-2021 09:30-0500 Body temperature 97.7 [degF] Dr. Leon Pinto Work Phone: [facility] Work Phone: 04-23-2021 09:30-0500 Diastolic blood pressure 82 mm[Hg] Dr. Leon Pinto Work Phone: [facility] Work Phone: 04-23-2021 09:30-0500 Heart rate 94 /min Dr. Leon Pinto Work Phone: [facility] Work Phone: 04-23-2021 09:30-0500 Respiratory rate 18 /min Dr. Leon Pinto Work Phone: [facility] Work Phone: 04-23-2021 09:30-0500 SaO2% (BldA) [Mass fraction] 97 % Dr. Leon Pinto Work Phone: [facility] Work Phone: 04-23-2021 09:30-0500 Systolic blood pressure 138 mm[Hg] Dr. Leon Pinto Work Phone: [facility] Work Phone: 04-20-2021 10:15-0500 Body temperature 98.7 [degF] Dr. Leon Pinto Work Phone: [facility] Work Phone: 04-20-2021 10:15-0500 Body weight 113.[address] Leon Pinto Work Phone: [facility] Work Phone: 04-20-2021 10:15-0500 Diastolic blood pressure 86 mm[Hg] Dr. Leon Pinto Work Phone: [facility] Work Phone: 04-20-2021 10:15-0500 Heart rate 91 /min Dr. Leon Pinto Work Phone: [facility] Work Phone: 04-20-2021 10:15-0500 Respiratory rate 17 /min Dr. Leon Pinto Work Phone: [facility] Work Phone: 04-20-2021 10:15-0500 SaO2% (BldA) [Mass fraction] 92 % Dr. Leon Pinto Work Phone: [facility] Work Phone: 04-20-2021 10:15-0500 Systolic blood pressure 134 mm[Hg] Dr. Leon Pinto Work Phone: [facility] Work Phone: 04-20-2021 09:15-0500 Body height 165.[address] Leon Pinto Work Phone: [facility] Work Phone: 04-20-2021 09:15-0500 Body temperature 98.7 [degF] Dr. Leon Pinto Work Phone: [facility] Work Phone: 04-20-2021 09:15-0500 Body weight 113.[address] Leon Pinto Work Phone: [facility] Work Phone: 04-20-2021 09:15-0500 Diastolic blood pressure 86 mm[Hg] Dr. Leon Pinto Work Phone: [facility] Work Phone: 04-20-2021 09:15-0500 Heart rate 91 /min Dr. Leon Pinto Work Phone: [facility] Work Phone: 04-20-2021 09:15-0500 Respiratory rate 17 /min Dr. Leon Pinto Work Phone: [facility] Work Phone: 04-20-2021 09:15-0500 SaO2% (BldA) [Mass fraction] 92 % Dr. Leon Pinto Work Phone: [facility] Work Phone: 04-20-2021 09:15-0500 Systolic blood pressure 134 mm[Hg] Dr. Leon Pinto Work Phone: [facility] Work Phone: 09-28-2020 06:02-0400 Body mass index (BMI) [Ratio] 34.9 kg/m2 Dr. Leon Pinto Work Phone: [facility] Work Phone: 09-28-2020 06:02-0400 Body mass index (BMI) [Ratio] 34.9 kg/m2 Dr. Leon Pinto Work Phone: [facility] Work Phone: Encounters Encounter Date Encounter Type Care Provider Facility Start: 09-23-2024 ambulatory Delisa Foster COMPENSATION ANALYST Fac ility:[facility] Start: 09-19-2024 ambulatory Delisa Foster COMPENSATION ANALYST Fac ility:[facility] Start: 09-11-2024 ambulatory [facility] Facility:[facility] Start: 09-11-2024 End: 09-11-2024 ambulatory Lucas [facility] Facility:[facility] Start: 09-08-2024 ambulatory Wesley Dl Facility: [facility] Start: 08-26-2024 End: 08-26-2024 Emergency department patient visit Jose Antoine Facility:[facility] Start: 08-06-2024 End: 08-06-2024 ambulatory Summer Funez Facility:[facility] Start: 07-18-2024 Encounter for genera l adult medical examination without abnormal findings Heather Hall [facility] Start: 07-03-2024 End: 07-03-2024 ambulatory Chalon Dee Dee Facility:[facility] Start: 05-29-2024 End: 05-29-[address] Wesley Lizama MD -[facility] Work Phone: Start: 05-29-2024 End: 05-29-2024 ambulatory Summer Funez Facility:[facility] Start: 05-27-2024 End: 05-27-2024 Patient encounter procedure Heather Hall NP-C -[facility] Work Phone: Start: 05-27-2024 End: 05-27-2024 ambulatory Summer Funez MD Work Phone: [facility] Work Phone: Start: 05-26-2024 ambulatory Summer Funez Facility:[facility] Start: 05-22-2024 End: 05-22-2024 Discharged Recurring Kala Nicholas PA -Physical Therapy Work Phone: Start: 05-22-2024 End: 05-22-2024 ambulatory Summer Funez MD Work Phone: [facility] Work Phone: Start: 05-22-2024 End: 05-22-2024 Patient encounter procedure Kala CARABALLO -[facility] Work Phone: Start: 05-19-2024 End: 05-19-2024 Patient encounter procedure Delisa PADILLA -[facility] Work Phone: Start: 05-19-2024 End: 05-19-2024 ambulatory Delisa Foster NP Facility:[facility] Start: 05-15-2024 Registered Recurring Kala Nicholas PA -Physical Therapy Work Phone: Start: 05-13-2024 Registered Recurring Kala Nicholas PA -Physical Therapy Work Phone: Start: 05-12-2024 End: 05-12-2024 ambulatory Summer Funez MD Work Phone: [facility] Work Phone: Start: 05-12-2024 End: 05-12-2024 Patient encounter procedure Kala CARABALLO -MRI - [facility] Work Phone: Start: 05-12-2024 End: 05-12-2024 ambulatory Summer Funez Facility:[facility] Start: 05-07-2024 Registered Recurring Kala CARABALLO -Physical Therapy Work Phone: Start: 05-05-2024 Registered Recurring Kala CARABALLO -Physical Therapy Work Phone: Start: 05-01-2024 End: 05-01-2024 ambulatory Summer Funez MD Work Phone: [facility] Work Phone: Start: 05-01-2024 End: 05-01-2024 Patient encounter procedure Heather PADILLA -Ultrasound, [facility] Work Phone: Start: 05-01-2024 End: 05-01-2024 ambulatory Heather Hall Facility:[facility] Start: 04-28-2024 End: 04-28-2024 Patient encounter procedure Heather Hall NP-C -Laboratory Work Phone: Start: 04-28-2024 End: 04-28-2024 ambulatory Summer Funez MD Work Phone: [facility] Work Phone: Start: 04-28-2024 End: 04-28-2024 ambulatory Summer Funez Facility:[facility] Start: 04-25-2024 End: 04-25-2024 ambulatory Summer Funez MD Work Phone: [facility] Work Phone: Start: 04-25-2024 End: 04-25-[address] Semaj Joseph MD -Cat Scan, [facility] Work Phone: Start: 04-25-2024 End: 04-25-2024 ambulatory Semaj Joseph Facility:[facility] Start: 04-07-2024 End: 04-07-2024 Admission to same day surgery center Dr. Rj Bravo MD -[facility] Start: 04-07-2024 End: 04-07-2024 ambulatory Chalon Dee Dee Facility:[facility] Start: 04-01-2024 End: 04-01-2024 Patient encounter procedure Kala CARABALLO -[facility] Work Phone: Start: 04-01-2024 End: 04-01-2024 ambulatory Chalon Dee Dee Facility:[facility] Start: 03-26-2024 End: 03-26-2024 Patient encounter procedure Kala CARABALLO -Radiology, [place] Work Phone: Start: 03-26-2024 End: 03-26-2024 ambulatory Chalon Dee Dee Facility:[facility] Start: 01-25-2024 End: 01-25-[address] Summer Funez MD -Radiology, [facility] Work Phone: Start: 01-25-2024 End: 01-25-2024 ambulatory Chalon Dee Dee Facility:[facility] Start: 01-12-2024 End: 01-12-2024 Patient encounter procedure Jaleel CARABALLO -[facility] Work Phone: Start: 01-12-2024 End: 01-12-2024 ambulatory Chalon Dee Dee Facility:[facility] Start: 01-07-2024 ambulatory Chalon Dee Dee Facility:[facility] Start: 01-07-2024 End: 01-07-2024 Admission to same day surgery center Dr. Rj Bravo MD -[facility] Start: 01-07-2024 End: 01-07-2024 ambulatory Rj Bravo Facility:[facility] Start: 12-29-2023 End: 12-29-2023 ambulatory Aaron Rai Facility:[facility] Start: 12-05-2023 End: 12-05-2023 ambulatory Chalon Dee Dee Facility:[facility] Start: 11-22-2023 End: 11-22-2023 ambulatory Chalon Dee Dee Facility:[facility] Start: 11-06-2023 End: 11-06-2023 ambulatory Chalon Dee Dee Facility:[facility] Start: 06-12-2023 End: 06-12-[address] Leon Pitno Work Phone: [facility] Work Phone: Start: 06-12-2023 End: 06-12-[address] Leon Pinto Work Phone: [facility]-Physical Therapy Work Phone: Start: 05-28-2023 ambulatory Phyllis Almeida PA-C Work Phone: [facility] Comment on above: MRI Start: 05-25-2023 ambulatory Phyllis Coateska PA-C Work Phone: [facility] Comment on above: MRI results Start: 05-24-2023 End: 05-24-2023 ambulatory [facility] Facility:[facility] Start: 05-24-2023 End: 05-24-2023 Subsequent hospital visit by physician Mri Radio Replaced By [facility] (I-Stat/1.5t) Work Phone: Radiology Comment on above: Chronic RUQ pain [R1 0.11, G89.29] Start: 05-11-2023 End: 05-11-2023 ambulatory [facility] Facility:[facility] Start: 05-11-2023 End: 05-11-2023 ambulatory Phyllis Almeida PA-C Work Phone: [facility] Comment on above: Chronic RUQ pain (Pr imary Dx); Fatty metamorphosis of liver; Right upper quadrant abdominal pain Start: 05-11-2023 End: 05-11-2023 Telemedicine consultation with patient Phyllis Almeida PA-C Work Phone: [facility] Start: 05-09-2023 End: 05-09-[address] Leon Pinto Work Phone: [facility]-Pulmonary Medicine [facility] Work Phone: Start: 05-08-[address] Leon camacho Work Phone: [facility]-Physical Therapy Work Phone: Start: 05-08-2023 End: 05-08-2023 ambulatory Phyllis Almeida PA-C Work Phone: Gastroenterology Comment on above: Fibroscan Intermittent, FMLA Start: 05-08-2023 End: 05-08-2023 ambulatory [facility] Facility:[facility] Start: 05-08-2023 End: 05-08-2023 Patient encounter procedure Hepatology Procedures [facility] Work Phone: [facility] Start: 05-07-2023 End: 05-07-2023 Orders Only Phyllis Almeida PA-C Work Phone: Gastroenterology Comment on above: 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 Start: 05-07-2023 End: 05-07-[address] Leon Pinto Work Phone: [facility]-Sleep Lab Work Phone: Start: 05-04-2023 End: 05-04-2023 ambulatory SANGEETHA SILVA Facility:[facility] Start: 05-04-2023 End: 05-04-2023 Subsequent hospital visit by physician Sangeetha Silva MD Work Phone: Ambulatory Surgery Comment on above: Chronic RUQ pain [R1 0.11, G89.29] Start: 05-01-2023 End: 05-01-2023 ambulatory [facility] Facility:[facility] Start: 05-01-2023 End: 05-01-2023 Subsequent hospital visit by physician [facility] Work Phone: Radiology Comment on above: Abnormal CT of liver [R93.2] Start: 04-25-2023 End: 04-25-2023 ambulatory [facility] Work Phone: Start: 04-25-2023 End: 04-25-2023 Patient encounter procedure [facility]-Cat Scan, [facility] Work Phone: Start: 04-24-2023 End: 04-24-2023 ambulatory [facility] Work Phone: Start: 04-24-2023 End: 04-24-2023 Patient encounter procedure [facility]-Radiology, [place] Work Phone: Start: 04-18-2023 End: 04-18-2023 ambulatory LEON PINTO Facility:[facility] Start: 04-18-2023 End: 04-18-2023 Patient encounter procedure Phyllis Almeida PA-C Work Phone: Gastroenterology [place] Comment on above: Chronic RUQ pain (Pr imary Dx); Nausea; Abnormal CT of liver Start: 03-08-2023 End: 03-08-2023 ambulatory [facility] Work Phone: Start: 03-08-2023 End: 03-08-2023 Patient encounter procedure [facility]-Cat Scan, [facility] Work Phone: Start: 02-22-2023 End: 02-22-2023 ambulatory [facility] Work Phone: Start: 02-22-2023 End: 02-22-2023 Patient encounter procedure [facility]-Laboratory, Phy Office 3rd Flr Start: 11-28-2022 End: 11-28-[address] Leon Pinto Work Phone: [facility] Work Phone: Start: 11-28-2022 End: 11-28-[address] Leon Pinto Work Phone: [facility]-Laboratory, Phy Office 3rd Flr Start: 10-27-2022 End: 10-27-[address] Leon Pinto Work Phone: [facility] Work Phone: Start: 10-27-2022 End: 10-27-[address] Leon Pinto Work Phone: [facility]-Pulmonary Services/Neurology Work Phone: Start: 10-25-2022 End: 10-25-[address] Leon Pinto Work Phone: [facility] Work Phone: Start: 10-12-2022 End: 10-12-[address] Leon Pinto Work Phone: [facility] Work Phone: Start: 10-12-2022 End: 10-12-[address] Leon Pinto Work Phone: [facility]-Pulmonary Services/Neurology Work Phone: Start: 10-11-2022 End: 10-11-[address] Leon Pinto Work Phone: [facility] Work Phone: Start: 10-11-2022 End: 10-11-[address] Leon Pinto Work Phone: [facility]-MRI - [facility] Work Phone: Start: 09-27-2022 End: 09-27-[address] Leon Pinto Work Phone: [facility] Work Phone: Start: 09-27-2022 End: 09-27-[address] Leon Pinto Work Phone: [facility]-Radiology, [facility] Work Phone: Start: 09-01-2022 End: 09-01-[address] Leon Pinto Work Phone: [facility] Work Phone: Start: 09-01-2022 End: 09-01-[address] Leon Pinto Work Phone: [facility]-Laboratory Work Phone: Start: 08-03-2022 End: 08-03-[address] Leon Pinto Work Phone: [facility] Work Phone: Start: 06-14-2022 End: 06-14-[address] Leon Pinto Work Phone: [facility] Work Phone: Start: 06-14-2022 End: 06-14-[address] Leon Pinto Work Phone: [facility] Start: 05-11-2022 End: 05-11-[address] Leon Pinto Work Phone: [facility] Work Phone: Start: 05-11-2022 End: 05-11-[address] [facility] Start: 04-10-2022 End: 04-10-[address] Leon Pinto Work Phone: [facility] Start: 03-28-2022 End: 03-28-2022 Emergency department patient visit Dr. Leon Pinto Work Phone: [facility]-Emergency Department Start: 03-21-2022 End: 03-21-[address] Leon Pinto Work Phone: [facility] Work Phone: Start: 03-21-2022 End: 03-21-[address] Leon Pinto Work Phone: [facility] Start: 03-13-2022 Non-patient / Non-visit Dr. Leon Pinto Work Phone: [facility] Start: 03-13-2022 End: 03-13-2022 Admission to same day surgery center Dr. Leon Pinto Work Phone: [facility]-Endoscopy Start: 03-13-2022 End: 03-13-[address] Leon Pinto Work Phone: [facility] Work Phone: Start: 01-05-2022 Non-patient / Non-visit Dr. Leon Pinto Work Phone: [facility] Start: 01-03-2022 End: 01-03-[address] Leon Pinto Work Phone: [facility]-Outpatient Breast Imaging Start: 11-23-2021 End: 11-23-[address] Leon Pinto Work Phone: [facility] Work Phone: Start: 11-23-2021 End: 11-23-[address] [facility] [address] Start: 11-07-2021 End: 11-07-[address] [facility] Start: 11-03-2021 End: 11-03-[address] Leon Pinto Work Phone: [facility] Start: 09-20-2021 Non-patient / Non-visit Dr. Leon Pinto Work Phone: [facility] Start: 09-20-2021 End: 09-20-[address] Leon Pinto Work Phone: [facility]-Pulmonary Services/Neurology Start: 08-08-2021 End: 08-08-[address] Leon Pinto Work Phone: [facility]-Laboratory, [place] Start: 06-27-2021 End: 06-27-[address] Leon Pinto Work Phone: [facility]-Medical Surgical 3 Outp Start: 06-27-2021 Non-patient / Non-visit Dr. Leon Pinto Work Phone: [facility] Start: 06-26-2021 End: 06-26-[address] Leon Pinto Work Phone: [facility] Start: 06-26-2021 End: 06-26-[address] Leon Pinto Work Phone: [facility] Start: 05-28-2021 End: 05-28-[address] [facility] Start: 05-06-2021 End: 05-06-[address] [facility] Start: 04-26-2021 End: 04-26-2021 Patient encounter procedure Dr. Leon Pinto [facility] Start: 04-23-2021 End: 04-23-[address] Leon Pinto Work Phone: [facility] Start: 04-20-2021 End: 04-20-[address] [facility] Start: 04-08-2021 End: 04-08-[address] [facility] Start: 03-04-2021 End: 03-04-[address] Leon Pinto Work Phone: [facility] Start: 02-02-[address] [facility] Start: 06-13-2018 Patient encounter procedure DOCTOR UNASSIGNED Facility:UNKNOWN Procedures Date Procedure Procedure Detail Performing Clinician Start: 05-12-2024 MRI of lumbar spine Summer Funez MD Work Phone: Start: 05-01-2024 Ultrasonography of abdomen Summer Singh Work Phone: Start: 04-25-2024 CT of chest Summer Funez MD Work Phone: Start: 04-07-2024 Complete x-ray series of lumbar spine with bending views Summer Funez MD Work Phone: Start: 04-07-2024 Injection of facet joint Summer Funez MD Work Phone: Start: 04-07-2024 End: 04-07-2024 Injection of spinal epidural space Summer Funez MD Work Phone: Start: 03-26-2024 X-ray of cervical spine Summer Funez MD Work Phone: Start: 03-26-2024 X-ray of lumbosacral spine Summer Singh Work Phone: Start: 01-25-2024 X-ray of chest, PA and lateral views Summer Funez MD Work Phone: Start: 01-07-2024 Local anesthetic lumbar epidural block Summer Funez MD Work Phone: Start: 01-07-2024 Injection of facet joint Summer Funez MD Work Phone: Start: 01-07-2024 Injection of spinal epidural space Summer Funez MD Work Phone: Start: 01-07-2024 X-ray of lumbosacral spine Summer Singh Work Phone: Start: 05-08-2023 Liver elastography w/o imag w/i&r Mary Almeida PA-C Work Phone: Start: 05-04-2023 Esophagogastroduodenoscopy transoral diagnostic Phyllis Almeida PA-C Work Phone: Start: 05-01-2023 Us abdominal real time w/image limited Phyllis Almeida PA-C Work Phone: Start: 04-25-2023 CT of chest Start: 04-24-2023 X-ray of lumbar spine, two or three views Start: 03-08-2023 Computed tomography of abdomen and pelvis with contrast Start: 10-27-2022 Coronavirus COVID-[address] Leon Pinto Work Phone: Start: 10-27-2022 Influenza Types A,B Direct FA (BINA) Dr. Leon Pinto Work Phone: Start: 10-27-2022 Respiratory syncytial virus antigen assay Dr. Leon Pinto Work Phone: Start: 10-12-2022 Coronavirus COVID-[address] Leon Pinto Work Phone: Start: 10-12-2022 Influenza Types A,B Direct FA (BINA) Dr. Leon Pinto Work Phone: Start: 10-12-2022 Respiratory syncytial virus antigen assay Dr. Leon Pinto Work Phone: Start: 10-11-2022 MRI of cervical spine Dr. Leon Pinto Work Phone: Start: 09-27-2022 X-ray of cervical spine Dr. Leon Pinto Work Phone: Start: 04-10-[address] Leon Pinto Work Phone: Start: 03-28-2022 Plain chest X-ray Dr. Leon Pinto Work Phone: Start: 03-13-[address] Leon Pinto Work Phone: Start: 01-03-[address] Leon Pinto Work Phone: Start: 04-26-2021 Respiratory Panel (PCR) Dr. Leon Pinto Work Phone: Start: 04-26-2021 Plain chest X-ray Dr. Leon Pinto Work Phone: Start: 04-08-[address] Leon Pinto Work Phone: Start: 04-26-2012 Radha Almeida PA-C Work Phone: H/O: surgery History of surge ry on arm Dr. Leon Pinto Work Phone: History of appendectomy History of appendectomy Dr. Leon Pinto Work Phone: Comment on above: 1978 History of cholecystectomy Histo ry of laparoscopic cholecystectomy Dr. Leon Pinto Work Phone: Respiratory Panel (PCR) Dr. Leon Pinto Work Phone: Plan of Treatment Date Care Activity Detail Author Start: 09-23-2024 Walking distance 6 minutes [facility] Start: 09-19-2024 Measurement of respiratory function [facility] Start: 04-07-2024 Anes dx/ther nerve block/injection prone pos ANESTH N BLOCK/INJ PRONE [facility] Start: 04-07-2024 Njx dx/ther agt pvrt facet jt lmbr/sac 1 level INJ PARAVERT F JNT L/S 1 [facility] Start: 04-07-2024 Njx dx/ther agt pvrt facet jt lmbr/sac 2nd level INJ PARAVERT F JNT L/S 2 [facility] Start: 04-07-2024 Patient discharge [facility] Start: 04-01-2024 Patient referral [facility] Work Phone: Start: 01-07-2024 Patient discharge [facility] Start: 10-20-2022 Covid-19 Vaccine ( season) Covid-19 Vaccine ( season) [facility] Start: 04-26-2022 Screening for malign ant neoplasm of colon [facility] Start: 03-28-2022 [facility] Start: 03-13-2022 Colsc flx w/rmvl of tumor polyp lesion snare tq COLONOSCOPY W/LESION REMOVAL [facility] Start: 03-13-2022 Patient discharge [facility] Start: 2021 Hepatitis B Vaccine (1 of 3 - Risk 3-dose series) Hepatitis B Vaccine (1 of 3 - Risk 3-dose series) [facility] Start: 2021 RSV Vaccine (1 - 1-d ose 60+ series) RSV Vaccine (1 - 1-dose 60+ series) [facility] Start: 2011 Shingrix Vaccine (1 of 2) Shingrix Vaccine (1 of 2) [facility] Start: 08-02-2007 Screening for malign ant neoplasm of cervix Pap Testing [facility] Start: 2006 Diabetes Screening Diabetes Screenin g [facility] Start: 2006 Lipid panel Lipid Screening [facility] laura [facility] Start: 2006 Screening for malign ant neoplasm of colon [facility] Start: 2001 Screening for malign ant neoplasm of breast Mammogram Screening [facility] Start: 1991 Screening for malign ant neoplasm of cervix HPV Testing [facility] Start: 02-20-1980 Hepatitis A Vaccine (1 of 2 - Risk 2-dose series) Hepatitis A Vaccine (1 of 2 - Risk 2-dose series) [facility] Start: 02-20-1980 Urine microalbumin profile DTaP,Tdap,Td Vaccine (1 - Tdap) [facility] Start: 1979 Hepatitis C screening Hepatitis C Sc reening [facility] Start: 1979 HIV screening HIV Screening [facility] koby [facility] Start: 1967 Pneumococcal vaccination Pneum ococcal Vaccine (1 of 2 - PCV) [facility] C reactive protein [Mass/volume] in Serum or Plasma [facility] CBC W Auto Different ial panel - Blood [facility] Colonoscopy [facility] Comprehensive metabo lic 2000 panel - Serum or Plasma [facility] CT Chest [facility] Work Phone: CT Chest [facility] CT Chest [facility] CT Chest [facility] End: 04-18-2024 EGD DIAGNOSTIC EGD DIAGNOSTIC Endoscopy Routine Chronic RUQ pain Nausea 1 Occurrences starting 04/18/2023 until 04/18/2024 [facility] Work Phone: Comment on above: 1 Occurrences starti ng 04/18/2023 until 04/18/2024 Hemoglobin A1c/Hemoglobin.total in Blood [facility] Lipid 1996 panel - S mukesh or Plasma [facility] Liver ultrasound attenuation by transient elastography VIBRATION CONTROLLED TRANSIENT ELASTOGRAPHY (POC) Imaging Diagnostic Routine Fatty metamorphosis of liver Ordered: 05/07/2023 [facility] Work Phone: Comment on above: Ordered: 05/07/2023 Measurement of respiratory function [facility] Work Phone: Measurement of respiratory function [facility] End: 06-09-2024 MR Biliary ducts and Pancreatic duct WO and W contrast IV MRI PANC/KATIE WO/W IVCON Radiology Routine Chronic RUQ pain Right upper quadrant abdominal pain 1 Occurrences starting 05/11/2023 until 06/09/2024 [facility] Work Phone: Comment on above: 1 Occurrences starti ng 05/11/2023 until 06/09/2024 MR Biliary ducts and Pancreatic duct WO and W contrast IV MRI PANC/KATIE WO/W IVCON Radiology Routine Chronic RUQ pain Right upper quadrant abdominal pain 05/24/2023 1:40 PM EDT [facility] Work Phone: End: 06-09-2024 MR Unspecified body region 3D post processing MRI 3D POST PROCESSING Radiology Routine Chronic RUQ pain Right upper quadrant abdominal pain 1 Occurrences starting 05/11/2023 until 06/09/2024 [facility] Work Phone: Comment on above: 1 Occurrences starti ng 05/11/2023 until 06/09/2024 MR Unspecified body region 3D post processing MRI 3D POST PROCESSING Radiology Routine Chronic RUQ pain Right upper quadrant abdominal pain 05/24/2023 1:40 PM EDT [facility] Work Phone: Patient Education ED Chest Pain, Noncardiac [facility] Work Phone: Patient referral [facility] Work Phone: Prothrombin time [facility] Radionuclide gastric emptying study [facility] SURGICAL PATHOLOGY [facility] Work Phone: Comment on above: Release Upon Orderin g for 1 Occurrences starting 05/04/2023, 1 completed Ultrasound elastography [facility] End: 05-17-2024 US Abdomen RUQ US ABD RIGHT UPPER QUADRANT Radiology Routine Abnormal CT of liver 1 Occurrences starting 04/18/2023 until 05/17/2024 [facility] Work Phone: Comment on above: 1 Occurrences starti ng 04/18/2023 until 05/17/[address] [facility] Immunizations Immunization Date Immunization Notes Care Provider Fa sabaroberto 11-15-2023 influenza, seasonal, injectable, preservative free Summer Funez MD Work Phone: [facility] 11-29-2022 influenza, injectabl e, quadrivalent, preservative free Dr. Leon Pinto Work Phone: [facility] 12-03-2020 Covid (Moderna) Dr. Leon Pinto Work Phone: [facility] 03-22-2020 Covid (Moderna) Dr. Leon Pinto Work Phone: [facility] 02-23-2020 Covid (Moderna) Dr. Leon Pinto Work Phone: [facility] 01-04-2015 influenza, injectabl e, quadrivalent, preservative free Dr. Leon Pinto Work Phone: [facility] 01-04-2015 influenza, seasonal, injectable Dr. Leon Pinto Work Phone: [facility] 11-05-2013 influenza, injectabl e, quadrivalent, preservative free Dr. Leon Pinto Work Phone: [facility] 11-05-2013 influenza, seasonal, injectable Dr. Leon Pinto Work Phone: [facility] 03-03-[address] Leon Pinto Work Phone: [facility] Payers Date Payer Category Payer Self-pay [id number] 2023 [facility] Health [facility] [id number] 2023-Present [phone] [address] [place] [id number] PPO [id number] 2023 [facility] [id number] 2015 Unknown [id number] 1960 Unknown [id number] 2.16.840.1.602829.3.579.2.6 93 Unknown [id number] Unknown [id number] 2.16.840.1.495272.3.579.2.4 62 Unknown [id number] 2.16.840.1.859857.3.579.2.4 62 Unknown [id number] 2.16.840.1.896010.3.579.2.4 62 Unknown [id number] 2.16.840.1.739922.3.579.2.4 62 Unknown [id number] 2.16.840.1.185587.3.579.2.4 62 Unknown [id number] 2.16.840.1.078059.3.579.2.4 62 Unknown [id number] 2.16.840.1.864826.3.579.2.4 62 Unknown [id number] 2.16.840.1.519992.3.579.2.4 62 Unknown [id number] 2.16.840.1.214775.3.579.2.4 62 Unknown [id number] 2.16.840.1.974024.3.579.2.4 62 Unknown [id number] 2.16.840.1.015212.3.579.2.4 62 Unknown [id number] 2.16.840.1.251082.3.579.2.4 62 Unknown [id number] 2.16.840.1.728370.3.579.2.4 62 Unknown [id number] 2.16.840.1.332248.3.579.2.4 62 Unknown [id number] 2.16.840.1.812268.3.579.2.4 62 Unknown [id number] 2.16.840.1.550794.3.579.2.4 62 Unknown [id number] 2.16.840.1.159997.3.579.2.4 62 Unknown [id number] 2.16.840.1.510471.3.579.2.4 62 Unknown [id number] 2.16.840.1.475015.3.579.2.4 62 Unknown [id number] 2.16.840.1.629565.3.579.2.4 62 Unknown [id number] 2.16.840.1.714577.3.579.2.4 62 Unknown [id number] 2.16.840.1.879498.3.579.2.4 62 Unknown [id number] 2.16.840.1.006753.3.579.2.4 62 Unknown [id number] 2.16.840.1.294975.3.579.2.4 62 Unknown [id number] 2.16.840.1.143421.3.579.2.4 62 Unknown [id number] 2.16.840.1.000638.3.579.2.4 62 Unknown [id number] 2.16.840.1.736594.3.579.2.4 62 Unknown [id number] 2.16.840.1.636978.3.579.2.4 62 Unknown [id number] 2.16.840.1.612992.3.579.2.4 62 Unknown [id number] 2.16.840.1.237079.3.579.2.4 62 Social History Date Type Detail Facility Start: 04-23-2021 End: 06-07-2023 Tobacco smoking status INIS Unknown if ever smoked [facility] Start: 1960 Sex Assigned At Female [facility] Start: 06-05-2017 Cigarettes [facility] Start: 04-18-2023 End: 05-29-2024 Tobacco smoking status NHIS Smokes tobacco daily [facility] Start: 04-18-2023 End: 05-04-2023 Tobacco use and exposure Smokeless tobacco non-user [facility] Start: 04-18-2023 End: 05-04-2023 Alcohol intake Current non-drinker of alcohol (finding) [facility] Start: 04-18-2023 End: 05-04-2023 History of Social function [facility] Start: 04-18-2023 End: 05-04-2023 Tobacco use panel [facility] National Score (1-100), lower number is lower risk 35 [facility] Start: 1960 Sex Assigned At Not on file C [facility] Start: 05-04-2023 Tobacco smoking stat us NHIS Ex-smoker [facility] End: 04-27-2023 History of tobacco use Current smoker [facility] End: 04-27-2023 History of tobacco use Cigarette Smoker [facility] Start: 05-06-2024 End: 05-29-2024 Sex Female (finding) [facility] Medical Equipment Procedure Code Equipment Code Equipment Origin al Text Equipment Identifier Dates RADIO REQ ABLATION FDA Start: 04-09-2017 RADIO REQ ABLATION FDA Start: 04-09-2017 RADIO REQ ABLATION FDA Start: 04-09-2017 RADIO REQ ABLATION FDA Start: 04-09-2017 RADIO REQ ABLATION FDA Start: 04-09-2017 RADIO REQ ABLATION FDA Start: 04-09-2017 RADIO REQ ABLATION FDA Start: 04-09-2017 RADIO REQ ABLATION FDA Start: 04-09-2017 RADIO REQ ABLATION FDA Start: 04-09-2017 RADIO REQ ABLATION FDA Start: 04-09-2017 RADIO REQ ABLATION FDA Start: 04-09-2017 RADIO REQ ABLATION FDA Start: 04-09-2017 RADIO REQ ABLATION FDA Start: 04-09-2017 RADIO REQ ABLATION FDA Start: 04-09-2017 RADIO REQ ABLATION FDA Start: 04-09-2017 RADIO REQ ABLATION FDA Start: 04-09-2017 RADIO REQ ABLATION FDA Start: 04-09-2017 RADIO REQ ABLATION FDA Start: 04-09-2017 RADIO REQ ABLATION FDA Start: 04-09-2017 RADIO REQ ABLATION FDA Start: 04-09-2017 RADIO REQ ABLATION FDA Start: 04-09-2017 RADIO REQ ABLATION FDA Start: 04-09-2017 RADIO REQ ABLATION FDA Start: 04-09-2017 RADIO REQ ABLATION FDA Start: 04-09-2017 RADIO REQ ABLATION FDA Start: 04-09-2017 RADIO REQ ABLATION FDA Start: 04-09-2017 RADIO REQ ABLATION FDA Start: 04-09-2017 RADIO REQ ABLATION FDA Start: 04-09-2017 RADIO REQ ABLATION FDA Start: 04-09-2017 Goals Date Patient Goal Desired Activity /State Mental Status Date Assessment Result Facility 04-07-2024 Cognitive function Voice/Name [facility] Work Phone: 01-07-2024 Cognitive function Level Of Cons ciousness Awake;Alert;Appropriate;Follow s Commands [facility] Work Phone: 01-07-2024 Cognitive function Voice/Name [facility] Work Phone: 03-28-2022 Cognitive function Voice/Name [facility] Work Phone: 03-13-2022 Cognitive function Voice/Name [facility] Work Phone: 06-27-2021 Cognitive function Voice/Name;To uch/Shaking;Light Pain;Deep Pain [facility] Work Phone: Clinical Notes 03-13-2022 to 05-22-2024 Note Date & Type Note Facility 05-22-2024 Discharge summary Note Date/Time May 22, 2024 7:00 pm [facility] [address] [place] [address] [address] [place] [address] / REHABILITATION SERVICES DISCHARGE SUMMARY MR#: [id number] Acct: [id number] Name: MONICA MALDONADO Rep #: [id number] : 1960 64 From: Zachary Tovar DPT, OCS, CSCS Referring DrRuth Ann: ILYA Antunez Status: REG RCR Insurance: [employer] S[employer] PAY INSURANCE Discharge Summary D/C summary: It has been my pleasure to treat MONICA MALDONADO referred by ILYA Antunez, with the diagnosis of lumbar and cervical readiculopathy for a total of 13 visit(s). Discharge Date: 05/22/24 Please see the following information for a summary of their discharge status. Subjective Subjective: i am reallly well right now. I am not gimping around or limping. Ihave more energy. Feels stronger. Was in Afib and has monitor on now. Stretching at home consistently. Is taking tylenol and ibuprofen together and doing that. has not needed it lately. Pain LB: Pain Intensity (Out of 10): 0 arms numb: Pain Intensity (Out of 10): 0 BLE: Pain Intensity (Out of 10): 0 Overall Improvement % Improvement: 70 Objective Objective/Function: Good lumbar ROM without hesitation or pain todya. Transitioning well adn walking without gait deviations. Goals Goal 1:: I appropriate pool based aggressive strength and postural and cervical and core and LE strenght program with progressions. Goal Progress: Goal Met Goal 2:: Patient continue to be painfree at rest and 90% better in overall arm numbness Goal Progress: 70% Goal 3:: back oswestry score 6 or better Goal Progress: Progressing Goal 4:: Progress to home/gym ex to help maintain ROM, posture and core strengthto ease in recurrence Goal Progress: Pool Goal 5:: Pt feel exit bed without stiffneess or numbness in UE Goal Progress: Goal Met Plan Plan: d/c to I pool program. and home stretching. D/C Information d/c sentence: If there are questions or concerns regarding this patient's physical therapy, please feel free to call me at [phone]. Thank you for the referral of thispatient. Sincerely, Zachary Tovar, SINA, OCS, CSCS Balance/Gait/Functional tests Balance/Special Test Scores Oswestry Low Back Score: 8 Improvement % Improvement: 70 <Electronically signed by Zachary Tovar DPT, OCS, CSCS> 05/22/24 8031 CC: IYLA Antunez; Dr. Summer Funez MD ~ OLGA Signed [facility] Work Phone: 1(507) 290-866904-03-2025 Discharge summary [facility] Physical Therapy [address] [place] [address] / REHABILITATION SERVICES DISCHARGE SUMMARY MR#: [id number] Acct: [id number] Name: MONICA MALDONADO Rep #: [id number] : 1960 64 From: Zachary Tovar DPT, OCS, CSCS Referring Dr.: ILYA Antunez Status: REG RCR Insurance: [employer] S[employer]F PA[employer] INSURANCE Discharge Summary D/C summary: It has been my pleasure to treat MONICA MALDONADO referred by ILYA Antunez, with the diagnosis of lumbar and cervical readiculopathy for a total of 13 visit(s). Discharge Date: 05/22/24 Please see the following information for a summary of their discharge status. Subjective Subjective: i am reallly well right now. I am not gimping around or limping. Ihave more energy. Feels stronger. Was in Afib and has monitor on now. Stretching at home consistently. Is taking tylenol and ibuprofen together and doing that. has not needed it lately. Pain LB: Pain Intensity (Out of 10): 0 arms numb: Pain Intensity (Out of 10): 0 BLE: Pain Intensity (Out of 10): 0 Overall Improvement % Improvement: 70 Objective Objective/Function: Good lumbar ROM without hesitation or pain todya. Transitioning well adn walking without gait deviations. Goals Goal 1:: I appropriate pool based aggressive strength and postural and cervical and core and LE strenght program with progressions. Goal Progress: Goal Met Goal 2:: Patient continue to be painfree at rest and 90% better in overall arm numbness Goal Progress: 70% Goal 3:: back oswestry score 6 or better Goal Progress: Progressing Goal 4:: Progress to home/gym ex to help maintain ROM, posture and core strengthto ease in recurrence Goal Progress: Pool Goal 5:: Pt feel exit bed without stiffneess or numbness in UE Goal Progress: Goal Met Plan Plan: d/c to I pool program. and home stretching. D/C Information d/c sentence: If there are questions or concerns regarding this patient's physical therapy, please feel free to call me at [phone]. Thank you for the referral of thispatient. Sincerely, Zachary Tovar DPT, OCS, CSCS Balance/Gait/Functional tests Balance/Special Test Scores Oswestry Low Back Score: 8 Improvement % Improvement: 70 05/22/24 1709 CC: ILYA Antunez; Dr. Summer Funez MD ~ EBG Signed [facility]03-13-2025 Radiology Diagnostic study note [facility] Imaging Services [address] [place] [address] Abdomen Limited MR#: [id number] Acct: [id number] Name: MONICA MALDONADO Rep #: [id number] : 1960 F 64 From: Atul Schwab MD PCP: Dr. Summer Funez MD Status: REG CL I Study:Abdomen Limited Date of Exam: 04/19 05/13 Exam# [id number] Ordering Dr: Heather Hall PROCEDURE: ABDOMEN LIMITED REASON FOR EXAM: RUQ PAIN, EPIG PAIN COMPARISON: None FINDINGS: Liver: Grossly normal size and echotexture. Gallbladder: Surgically absent. Common bile duct: Normal measuring 7.3 mm.. Pancreas: Visualized portions are sonographically unremarkable. Visualized portions of the right kidney are unremarkable. No right upper quadrant ascites. US/Abdomen Limited IMPRESSION: Status post cholecystectomy. No acute abnormality is seen. Reading Location: [id number] CC: COMPENSATION ANALYST-C Heather Hall; Dr. Summer Funez MD ~ Director Medical Writing: Signed [facility]03-07-2025 Radiology Diagnostic study note [facility] Imaging Services [address] [place] [address] Lung Screening MR#: [id number] Acct: [id number] Name: MONICA MALDONADO Rep #: [id number] : 1960 F 64 From: Atul Schwab MD PCP: Dr. Summer Funez MD Status: REG CL I Study:Low Dose CT Lung Screening Date of Exam : 04/25/24 Exam# [id number] Ordering Dr: Dheeraj Joseph MD PROCEDURE: LOW DOSE CT LUNG SCREENING REASON FOR EXAM: Current smoker. Patient has smoked 1 pack per day for 40 years. TECHNIQUE: Low Dose CT Lung Screening without contrast COMPARISON: Comparison is made with prior study dated April 25, 2023. FINDINGS: PULMONARY NODULES: (Only nodules >6mm are reported) Nodules described below are on series 1 unless otherwise specified. Pulmonary Nodules: There is a new 8.2 mm nodule in the posterior medial aspect of the left lung apex. This was not seen on prior study.. Stable 4 mm noncalcified nodule in the peripheral lateral aspect of the left lower lobe. Hardware:None Lymph Nodes:No mediastinal hilar or axillary lymphadenopathy. Heart and Vasculature:Normal heart size. No pericardial effusion.Thoracic aorta and pulmonary arteries have normal contours; noncontrast technique limits evaluation. Coronary Artery Calcifications: Present Lungs and Airways: Mild emphysematous changes are present. There is evidence offocal ground-glass appearance in the medial aspect of the right upper lobe. This is essentially unchanged as compared to prior study and most likely secondary to scarring. Pleura:No pleural effusion. No pneumothorax. Upper Abdomen:Visualized portions of the upper abdominal viscera are unremarkable. Bones:Degenerative changes of the thoracic spine. CT/Low Dose CT Lung Screening IMPRESSION: 1. BASED ON THE ACR LUNG RADS FOR THE MOST SUSPICIOUS NODULE (IF ANY) DESCRIBEDIN THIS REPORT, THE OVERALL LUNG RADS SCORE IS 4A.4A-SUSPICIOUS. RECOMMEND 3 MONTH LDCT; PET/CT MAY BE CONSIDERED IF THERE IS A>=8MM SOLID NODULE OR SOLID COMPONENT.. 2. SMOKING CESSATION COUNSELING IS RECOMMENDED IF THE PATIENT IS STILL SMOKING. 3. OTHER SIGNIFICANT FINDINGSNone. One or more dose reduction techniques were used (e.g., Automated exposure control, adjustment of the mA and/or kV according to patient size, use of iterative reconstruction technique). The following information is provided for reference:Lung-RADS 2022 Assessment Categories. Additional information involving Lung-RADS is available at www.acr.org. 0-INCOMPLETE 1-NEGATIVE:No nodules or definitely benign nodules. Complete, central, popcorn,or centric ring calcifications OR fat containing 2-BENIGN APPEARANCE (based on imaging features or indolent behavior). Juxtapleural nodule: < 10mm AND solid; smooth margins; oval, entiform, or triangular shape Solid nodule: <6mm at baseline or new< 4mm Part solid Nodule: < 6mm total mean diameter at baseline Nonsolid nodule:(GGN) < 30mm OR >=30mm stable or slowly growing Airway nodule, subsegmental at baseline, new, or stable Category 3 nodule stableor decreased in size at 6-month follow-up CT or Category 3 or 4A nodules that resolve on follow-up OR category 4B findings proven to be benign following diagnotic work up. 3 - Probably Benign (Based on imaging features or behavior) Solid Nodule: >= 6 to <8mm at baseline OR new 4 to <6mm Part-solid nodule: >= 6mm toal mean diam. with solid component <6mm at baseline OR new < 6mm total mean diam. Non-solid nodule: GGN >= 30mm at baseline or new Atypical pulmonary cyst: Growing cystic component (mean diam.) of thick-walled cyst Category 4A nodule stable or decreased in size at 3-month follow-up CT (excl.airway). 4A - Suspicious Solid nodule: >=8 to < 15mm at baseline OR growing < 8mm OR new 6 to < 8mm Part solid nodule: >= 6mm total mean diam. w/ solid component >=6mm to < 8mm at baseline OR new or growing < 4mm solid component Airway nodule, segmental or more proximal at baseline or new Atypical pulmonary cyst: Thick-walled OR multilocular at baseline OR becomes multilocular 4B - Very Suspicious Airway nodule, segmental or more proximal, and stable or growing Solid nodule: >= 15mm at baseline OR new or growing >= 8mm Part solid nodule: Solid component >= 8mm OR new or growing >= 4mm solid component Atypical pulmonary cyst: Thick-walled with growing wall thickness/nodularity OR Growing multilocular (mean diam.) OR Multilocular with increased loculation or new/increased opacity Slow-growing solid or part solid nodule w/ growth over multiple screening exams 4X - Very Suspicious Category 3 or 4 nodules with additional features that increase the suspicion forlung cancer. S - Clinically Significant or potentially significant findings (non-lung cancer) Reading Location: [id number] CC: Dr. Semaj Joseph MD; Dr. Summer Funez MD ~ Director Medical Writing: Signed [facility]02-11-2025 Evaluation note* Diagnosis Onset Date Resolution Status Admit Date Cervical radiculopathy chronic Fe bruary 2024 11:07am Spondylolisthesis at L5-S1 level noneactive April 01 11:07am Lumbar stenosis with neuroge deyvi claudication noneactive April 01 025 11:07am Epigastric pain acute April 10:53am Fatty (change of) liver, not elsewhere classified acute April 28, 2024 10:53am RUQ pain acute April 28 10:53am GERD (gastroesophageal reflu x disease) chronic April 28, 2024 10:53am [facility] Work Phone: 1(133) 228-760202-11-2025 Evaluation note* Diagnosis Onset Date Resolution Status Admit Date Cervical radiculopathy chronic Fe b[facility]lenn dale 2024 11:07am Spondylolisthesis at L5-S1 level noneactive April 01 11:07am Lumbar stenosis with neuroge deyvi claudication noneactive April 01 11:07am Epigastric pain acute April 10:53am Fatty (change of) liver, not elsewhere classified acute April 28, 2024 10:53am RUQ pain acute April 28 10:53am GERD (gastroesophageal reflu x disease) chronic April 28, 2024 10:53am Irregular heart rhythm acute [facility] 2024 9:38am TAMRA (obstructive sleep apnea) chroni c May 19, 2024 9:38am Shortness of breath chronic May 19, 2024 9:38am Smoking greater than 30 pack years chronic May 19, 2024 9:38am 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 May 19, 2024 9:38am [facility] Work Phone: 1(911) 671-863002-11-2025 Evaluation note* Diagnosis Onset Date Resolution Status Admit Date Cervical radiculopathy chronic Fe [facility] 2024 11:07am Spondylolisthesis at L5-S1 level noneactive April 01 025 11:07am Lumbar stenosis with neuroge deyvi claudication noneactive April 01 11:07am Epigastric pain acute April 10:53am Fatty (change of) liver, not elsewhere classified acute April 28, 2024 10:53am RUQ pain acute April 28 10:53am GERD (gastroesophageal reflu x disease) chronic April 28, 2024 10:53am Irregular heart rhythm acute [facility] 2024 9:38am TAMRA (obstructive sleep apnea) chroni c May 19, 2024 9:38am Shortness of breath chronic May 19, 2024 9:38am Smoking greater than 30 pack years chronic May 19, 2024 9:38am 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 May 19, 2024 9:38am Lumbar radiculopathy acute [facility] 2024 1:50pm [facility] Work Phone: 1(359) 947-414202-11-2025 Evaluation note* Diagnosis Onset Date Resolution Status Admit Date Cervical radiculopathy chronic [facility] 2024 11:07am Spondylolisthesis at L5-S1 level noneactive April 01 025 11:07am Lumbar stenosis with neuroge deyvi claudication noneactive April 01 025 11:07am Epigastric pain acute April 10:53am GERD (gastroesophageal reflu x disease) chronic April 28, 2024 10:53am RUQ pain chronic April 28 10:53am Fatty (change of) liver, not elsewhere classified deleted April 28, 2024 10:53am Irregular heart rhythm acute [facility] 2024 9:38am TAMRA (obstructive sleep apnea) chroni c May 19, 2024 9:38am Shortness of breath chronic May 19, 2024 9:38am Smoking greater than 30 pack years chronic May 19, 2024 9:38am 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 May 19, 2024 9:38am Lumbar radiculopathy acute [facility] 2024 1:50pm Dyspepsia chronic May 29 12:55pm Metabolic dysfunction-associated steatotic liver disease (MASLD) chronic May 29, 2024 12:55pm RUQ pain chronic May 29 12:55pm [facility] Work Phone: 1(495) 512-762011-23-2024 Evaluation note* Diagnosis Onset Date Resolution Status Admit Date Acute sinusitis acute January 12, 2024 8:24am Cervical radiculopathy chronic Fe bruary 2024 11:07am Spondylolisthesis at L5-S1 level noneactive April 01 11:07am Lumbar stenosis with neuroge deyvi claudication noneactive April 01 11:07am Epigastric pain acute April 10:53am Fatty (change of) liver, not elsewhere classified acute April 28, 2024 10:53am RUQ pain acute April 28 10:53am GERD (gastroesophageal reflu x disease) chronic April 28, 2024 10:53am [facility] Work Phone: 1(896) 493-418404-23-2024 Discharge summary Author Zachary Tovar [facility] June 12, 2023 4:48pm Note Date/Time June 12, 2023 4:4 8pm [facility] Physical Therapy [facility] [address] [place] [address] / REHABILITATION SERVICES DISCHARGE SUMMARY MR#: [id number] Acct: [id number] Name: MONICA MALDONADO Rep #: [id number] : 1960 63 From: Zachary Tovar DPT, OCS, CSCS Referring Dr.: Dr. Summer Funez MD Status: REG RCR Insurance: [employer] SELF PAY INSURANCE Discharge Summary D/C summary: It has been my pleasure to treat MONICA MALDONADO referred by Summer Funez MD,with the diagnosis of Back pain for a total of 10 visit(s). Discharge Date: 06/12/23 Please see the following information for a summary of their discharge status. Subjective Subjective: Fantastic. Enjoyed the water. been in pool nearly daily. Much better than when she started. R leg remains weak. Most noticeable when tired in the pool. Is now able to sleep without waking up, still some pain in the am. Has not walked a really long distance. got very painful in leg 2 weeks ago when she tried. That was about two blocks. Not getting that feedling any other time. Saw PCp the other day and was good. May see pain doctor soon but might cancel it. Will continue daily in the water. Pain LB and legs: Pain Intensity (Out of 10): 0 Overall Improvement % Improvement: 90 Objective Objective/Function: mod ext limitations with some mid back tenderness, flexion is full but HS limits. SB are gux7enede. Walking well and transitioning well without hesitation, steps reciprocally with one rail. Goals Goal 1:: Pt I in appropriate pool exercises to limit futre problems. Goal Progress: Goal Met Goal 2:: Back and leg pain 50% better adn 3/10 at worst Goal Progress: Goal Met Goal 3:: walk dog without increased pain consistently Goal Progress: short distances Goal 4:: Sleep without interruption from pain Goal Progress: Goal Met Plan Plan: d./c to I pool program D/C Information Discharge Comments: will continue I pool program. d/c sentence: If there are questions or concerns regarding this patient's physical therapy, please feel free to call me at [phone]. Thank you for the referral of thispatient. Sincerely, Zachary Tovar, SINA, OCS, CSCS Balance/Gait/Functional tests Balance/Special Test Scores Oswestry Low Back Score: 8 Improvement % Improvement: 90 <Electronically signed by Zachary Tovar DPT, OCS, CSCS> 06/12/23 1646 CC: Dr. Summer Funez MD ~ EBG Signed [facility] Work Phone: 1(805) 316-184304-04-2024 NoteHNO ID: [id number] Author: CORI BRUNSON RT(R) Service: ? Author Type: Technologist Type: Progress Notes Filed: 05/24/2023 12:58 Note Text: Radiology Service Progress Note DATE OF SERVICE: May 24, 2023 TIME: 12:58 PM PATIENT IDENTITY VERIFICATION COMPLETED USING TWO (2) STANDARD IDENTIFIERS: Name and Date of confirmed by patient verbally. FALL SCREENING: Has the patient had 2 falls in the last year or 1 fall with injury or currently using an Ambulatory Assistive Device (Walker, Cane, Wheelchair, Crutches, etc.)? No PATIENT GENDER DATA: Female. status: : No status: NO. PATIENT RELEVANT IMPLANT DATA REVIEWED: Yes PATIENT PRESENTS WITH AN IMPLANTABLE OR ATTACHED PIPE CAULKER: No ALLERGIES: Reviewed and unchanged CONTRAST ALLERGY: NO. EXAM: MRI - CONTRAST TYPE: GROUP II PERIPHERAL IV DATA: Ambulatory: A peripheral IV was started in the Left forearm with a Angio cath: 22 gauge. RADIOLOGY DEPARTMENT: MR; Exam(s) Completed: Body: Pancreas/Biliary SIGNATURE: RT Kitty(R) PATIENT NAME: Monica Maldonado DATE: May 24, 2023 TIME: 12:58 [facility]04-04-2024 History of Present illness Narrative* Cori Brunson RT(R) - 05/24/2023 1:00 PM EDT Radiology Service Progress Note DATE OF SERVICE: May 24, 2023 TIME: 12:58 PM PATIENT IDENTITY VERIFICATION COMPLETED USING TWO (2) STANDARD IDENTIFIERS: Name and Date of confirmed by patient verbally. FALL SCREENING: Has the patient had 2 falls in the last year or 1 fall with injury or currently using an Ambulatory Assistive Device (Walker, Cane, Wheelchair, Crutches, etc.)? No PATIENT GENDER DATA: Female. status: : No status: NO. PATIENT RELEVANT IMPLANT DATA REVIEWED: Yes PATIENT PRESENTS WITH AN IMPLANTABLE OR ATTACHED PIPE CAULKER: No ALLERGIES: Reviewed and unchanged CONTRAST ALLERGY: NO. EXAM: MRI - CONTRAST TYPE: GROUP II PERIPHERAL IV DATA: Ambulatory: A peripheral IV was started in the Left forearm with a Angio cath: 22 gauge. RADIOLOGY DEPARTMENT: MR; Exam(s) Completed: Body: Pancreas/Biliary SIGNATURE: RT Kitty(R) PATIENT NAME: Monica Maldonado DATE: May 24, 2023 TIME: 12:58 PM documented in [facility] NoteHNO ID: [id number] Author: PHYLLIS ALMEIDA PA-C Service: ? Author Type: Physician Field Crop Ii Farmworker Type: Progress Notes Filed: 05/11/2023 08:59 Note Text: VIRTUAL VISIT FOLLOW UP I have communicated my name and active licensure. The patient's identity and physical location were verified at the time of this visit. Either the patient or their legal sales representative metals has been informed of the risks and benefits of -- and alternatives to -- treatment through a remote evaluation and consents to proceed with the evaluation remotely. I had a virtual visit with Ms. Maldonado today for follow up of RUQ pain. PMHx positive for COPD, GERD, NAFLD, RA. Surg hx pos for venkata, appendectomy. Unable to log into audio zoom, called for encounter. UPDATED HISTORY: On Bentyl PRN (pt includes she is holding this for now due to constipation), Prilosec 40 mg daily. Admits to chronic right sided abdominal pain for the past year which she includes has been persistent despite medication management. Pain is in RUQ, waxes/wanes, 1-10, no alleviating factors. On fiber, Dulcolax PRN with regular Bms. Notes some slight weight loss of 5 lbs in the past several weeks, associated with nausea/decreased appetite/early satiety. Denies emesis. 04/2023 CBC, CMP WNL VCTE 04/2023 The CAP score is 285 and corresponds to steatosis grade of S2. This reading corresponds: A 97% chance of stage 0-2 fibrosis A 3% chance of stage 3-4 fibrosis (advanced fibrosis) A <1% chance of stage 4 fibrosis (cirrhosis).A kPa >20 indicates a high likelihood of stage 4 fibrosis/cirrhosis, consider further testing to confirm. RUQ US 04/2023 IMPRESSION: Fatty infiltration of the liver. Mildly dilated common duct in the setting of cholecystectomy. Normal sonographic appearance of the spleen EGD 04/2023 Impression: - Normal first portion of the duodenum and second portion of the duodenum. - Erythematous mucosa in the antrum. Biopsied. - Small hiatal hernia. Biopsied. FINAL DIAGNOSIS A. Stomach, antrum, biopsy: - Gastric antral type mucosa with no pathologic diagnostic abnormality; see comment. B. Esophagogastric junction, biopsy: - Squamous and gastric mucosa with no pathologic diagnostic abnormality; negative for intraepithelial eosinophils, intestinal metaplasia or dysplasia. Reports Colon 02/2022 w/ [facility] w/ Dr. Hidalgo, told she had polyps and repeat in 5 yrs 02/2023 CBC, CMP WNL 02/2023 CT abd/pelv [facility] Hepatomegalty Diverticulosis Atherosclerosis Stable left lower lung nodule (3.8 mm) OV 03/2023 Monica Maldonado is a 63 year old female with [...] with relief. Denies unintentional weight loss, emesis. PAST MEDICAL HISTORY Diagnosis Date Allergic rhinitis due to other allergen Arthritis COPD (chronic obstructive pulmonary disease) (HCC) Depressive [...] LAPS SURG CHOLECYSTECTOMY W/CHOLANGIOGRAPHY 12/11/2008 Normal IOC REMOVAL GALLBLADDER FAMILY HISTORY Problem Relation Age of Onset Hypertension Mother Lipids Mother Alcohol/Drug Father Cancer Father Neck/Throat Psychiatry Father Alcohol/Drug Brother Allergies Brother Psychiatry Brother commited suicide Allergies Maternal Grandfather Hypertension Maternal Grandfather Heart Maternal Grandfather Lipids Maternal Grandfather Psychiatry Paternal Grandmother commited suicide Colon Cancer No Family History Social History Tobacco Use Smoking status: Former Years: 41 Types: Cigarettes Quit date: 04/27/2023 Years since quittin.0 Smokeless tobacco: Never Vaping Use Vaping Use: Never used Substance Use Topics Alcohol use: No Drug use: No Current Outpatient Medications Medication Sig Dispense Refill gabapentin (NEURONTIN) 100 mg capsule Take 100 mg by mouth three times a day. Magnesium 250 mg tab Take 250 mg by mouth. omeprazole (PRILOSEC) 40 mg capsule Take 40 mg by mouth once daily. dic (more 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[facility]03-22-2024 History of Present illness Narrative* Phyllis Almeida PA-C - 05/11/2023 8:30 AM EDT VIRTUAL VISIT FOLLOW UP I have communicated my name and active licensure. The patient's identity and physical location wereverified at the time of this visit. Either the patient or their legal sales representative metals has been informed of the risks and benefits of -- and alternatives to -- treatment through a remote evaluation andconsents to proceed with the evaluation remotely. I had a virtual visit with Ms. Maldonado today for follow up of RUQ pain. PMHx positive for COPD, GERD, NAFLD, RA. Surg hx pos for venkata, appendectomy. Unable to log into audio zoom, called for encounter. UPDATED HISTORY: On Bentyl PRN (pt includes she is holding this for now due to constipation), Prilosec 40 mg daily. Admits to chronic right sided abdominal pain for the past year which she includes has been persistent despite medication management. Pain is in RUQ, waxes/wanes, 1-3/10, no alleviating factors. On fiber, Dulcolax PRN with regular Bms. Notes some slight weight loss of 5 lbs in the past several weeks,associated with nausea/decreased appetite/early satiety. Denies emesis. 04/2023 CBC, CMP WNL VCTE 04/2023 The CAP score is 285 and corresponds to steatosis grade of S2. This reading corresponds: A 97% chance of stage 0-2 fibrosis A 3% chance of stage 3-4 fibrosis (advanced fibrosis) A <1% chance of stage 4 fibrosis (cirrhosis).A kPa >20 indicates a high likelihood of stage 4fibrosis/cirrhosis, consider further testing to confirm. RUQ US 04/2023 IMPRESSION: Fatty infiltration of the liver. Mildly dilated common duct in the setting of cholecystectomy. Normal sonographic appearance of the spleen EGD 04/2023 Impression: - Normal first portion of the duodenum and second portion of the duodenum. - Erythematous mucosa in the antrum. Biopsied. - Small hiatal hernia. Biopsied. FINAL DIAGNOSIS A. Stomach, antrum, biopsy: - Gastric antral type mucosa with no pathologic diagnostic abnormality; see comment. B. Esophagogastric junction, biopsy: - Squamous and gastric mucosa with no pathologic diagnostic abnormality; negative for intraepithelial eosinophils, intestinal metaplasia or dysplasia. Reports Colon 02/2022 w/ [facility] w/ Dr. Hidalgo, told she had polyps and repeat in 5 yrs 02/2023 CBC, CMP WNL 02/2023 CT abd/pelv [facility] Hepatomegalty Diverticulosis Atherosclerosis Stable left lower lung nodule (3.8 mm) OV 03/2023 Monica Maldonado is a 63 year old female with PMHx positive for COPD, GERD, NAFLD, RA who presents forEnlarged liver (Labs 02/22/23). Surg hx pos for venkata, appendectomy. On Bentyl PRN, Prilosec 40 mg daily. Admits to chronic right sided abdominal pain for the past year. Pain is in RUQ, waxes/wanes, 1-04/28, no alleviating factors. Associated sx of nausea w/o emesis, early satiety. Has been PPI for the past 10 yrs with good relief in GERD. No recent EGD. Bms are regular, no blood. Bentyl PRN works well for intermittent loose stools. Takes ibuprofen daily for chronic arthritic pains with relief. Denies unintentional weight loss, emesis. PAST MEDICAL HISTORY Diagnosis Date Allergic rhinitis due to other allergen Arthritis COPD (chronic obstructive pulmonary disease) (HCC) Depressive [...] LAPS SURG CHOLECYSTECTOMY W/CHOLANGIOGRAPHY 12/11/2008 Normal IOC REMOVAL GALLBLADDER FAMILY HISTORY Problem Relation Age of Onset Hypertension Mother Lipids Mother Alcohol/Drug Father Cancer Father Neck/Throat Psychiatry Father Alcohol/Drug Brother Allergies Brother Psychiatry Brother commited suicide Allergies Maternal Grandfather Hypertension Maternal Grandfather Heart Maternal Grandfather Lipids Maternal Grandfather Psychiatry Paternal Grandmother commited suicide Colon Cancer No Family History Social History Tobacco Use Smoking status: Former Years: 41 Types: Cigarettes Quit date: 04/27/2023 Years since quittin.0 Smokeless tobacco: Never Vaping Use Vaping Use: Never used Substance Use Topics Alcohol use: No Drug use: No Current Outpatient Medications Medication Sig Dispense Refill gabapentin (NEURONTIN) 100 mg capsule Take 100 mg by mouth three times a day. Magnesium 250 mg tab Take 250 mg by mouth. omeprazole (PRILOSEC) 40 mg capsule Take 40 mg by mouth once daily. dicyclomine (BENTYL) 20 mg tablet Take 20 mg by mouth before meals and at bedtime. diphenhydrAMINE HCL (BENADRYL ALLERGY) 50 mg tablet Take 50 mg by mouth at bedtime as needed. mirabegron (MYRBETRIQ) 25 mg Tb24 Take by mouth. klhpwjozwzn-qsbnijfez-jmumqxeb (TRELEGY ELLIPTA) 100-62.5-25 mcg inhalation powder Inhale 1 Puff asinstructed once daily. FLUoxetine (PROZAC) 10 mg capsule [...] Potassium 20 mg Chew Take by mouth. No current facility-administered medications for this visit. ALLERGIES Allergen Reactions Adalimumab Other: See Comments, Rash Adhesive Rash Penicillins Tremadol [Tramadol] GI Upset Made PT not want to eat, became dehydrated REVIEW OF SYSTEMS: PAIN ASSESSMENT: See HPI GENERAL: Weight loss RESPIRATORY: Negative for cough, hemoptysis, wheezing, COPD, dyspnea or shortness of breath CARDIOVASCULAR: Negative for chest pain, leg swelling, hypertension, CHF or palpitations GI: See HPI : No history of dysuria, frequency or incontinence TAXI CAB DRIVER: Negative for abnormal vaginal bleeding, abnormal vaginal discharge PHYSICAL FINDINGS OF NOTE: General - Normal, healthy, cooperative, in no acute distress Able to interact verbally by video conference Psych - ORIENTATION: normal to time place, person and situation Mood/Affect: AFFECT AND MOOD: Normal Head/Neuro - Normal size and shape Facial appearance normal Pulmonary - respiratory effort normal Cardiovascular - patient describes extremities normal, warm, no cyanosis,no clubbing, and no edema Abdominal - Not performed Skin - abnormal lesions not visualized Motor - patient seen sitting with Normal appearing strength and coordination Anorectal exam - Not Performed Assessment/Plan (R10.11, G89.29) Chronic RUQ pain (primary encounter diagnosis) (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 Chronic RUQ pain - MRI PANC/KATIE WO/W IVCON; Future - MRI 3D POST PROCESSING; Future - iv contrast (will be provided with radiology test); MRI PANC/KATIE Inject, intravenously, once for 1 dose. No IV access, insert saline lock prior to the beginning of sedation, infusion, injection of imaging exam. Discontinue saline lock post exam. If Pt. has a central line or IVAD, may access for administration according to line specific nursing protocol. Once exam is complete flush line and de-access according to line specific nursing protocol in the MR contrast administration guidelines link.Dispense: 1 Each; Refill: 0 - Will obtain MRCP to further assess pains, biliary dilation noted on US. Informed dilation could be 2/2 hx of venkata, however due to persistent pains I am recommending further imaging for evaluation.Denies anxiety/claustrophobia - Continue Prilosec 40 mg daily, Bentyl PRN (holding med currently due S/Es constipation) - Consider GES if MRCP normal 2. Fatty metamorphosis of liver - LFTs 04/2023 WNL - VCTE 04/2023 S2, F0-F2 - Pt working on lifestyle changes, proper Mediterranean diet I spent a total of 15 minutes on the date of the service which included preparing to see the patient, [id number] patient care, completing clinical documentation, obtaining and/or reviewing separately obtained history, performing a medically appropriate examination, counseling and educating the pat ient/family/caregiver, ordering medications, tests, or procedures, communicating with other HCPs (not separately reported), independently interpreting results (not separately reported), communicatingresults to the patient/family/caregiver, and care coordination (not separately reported). Phyllis Almeida PA-C May 11, 2023 8:51 AM documented in this encounterCincinnati [facility]03-19-2024 NoteHNO ID: [id number] Author: DANYA DARNELL APRN.MORTGAGE CLOSING CLERK Service: ? Author Type: Nurse Practitioner Type: Progress Notes Filed: 05/08/2023 12:11 Note Text: Patient fasting for 3 hours:Yes Fibroscan was performed on May 08, 2023, by Lazara Kc LPN and results are interpreted by Danya Darnell CNP Diagnosis: Fatty metamorphosis of liver [K76.0] Please refer to get images report for individual readings Number of readings: 10 IQR %: 14 E (kpa): 5.0 CAP: 285 Impression The reading was adequate. FS=5.0 kPA. The CAP score is 285 and corresponds to steatosis grade of S2. This reading corresponds: A 97% chance of stage 0-2 fibrosis A 3% chance of stage 3-4 fibrosis (advanced fibrosis) A <1% chance of stage 4 fibrosis (cirrhosis).A kPa >20 indicates a high likelihood of stage 4 fibrosis/cirrhosis, consider further testing to confirm. Danya Darnell APRN.ANIKA VILLALBA Fibroscan Fibrosis Risk <7 kPA = F0-F2 97%, F3+F4 3%, F4 <1% <10 kPA = F0-F2 91%, F3+F4 9%, F4 1.3% 10-15 kPA = F0-F2 56%, F3+F4 43%, F4 14% >15 kPA = F0-F2 26%, F3+F4 74%, F4 46% Grade CAP value up to 237 dB/M corresponds to S0 (< 10 % Fat) CAP value between (238 - 258 dB/M) corresponds to S1 (>/= 11 % Fat) CAP value between (259 - 289 dB/M) corresponds to S2 (>/= 33 % Fat) CAP value > 290dB/M corresponds to S3 (>/= 67 % Fat) stage 0 ( S0:< 10 % steatosis) stage 1 (>/= S1: 11%-33% steatosis) stage 2 (>/= S2: 34%-66% steatosis) stage 3 (>/= S3: > 66% steatosis) Reference Ricardo Y, Ted Q, Silva T, Jen J, Silva H, Bruno T. Controlled attenuation parameter for assessment of hepatic steatosis grades: a diagnostic meta-analysis. Int J Clin Exp Med. 2015 Nov 15;8(10):28904-01. PMID: 42217153; PMCID: [id number]. James Ceja, Colleen PRICE, Mamie M, Alaina F, Anne Lamb, Lula O, Danny F, Josh M, Rona G, Keisha A, Megain E, Sherron L, Rachel G, Luci A, Suly U, Maria Esther S, Glory P, Antonio V, Sadler V, Kathleen M, Prashant HUYNH. Refining the Baveno elastography criteria for the definition of compensated advanced chronic liver disease. J Hepatol. 2020;74(5):1210-4532. doi: 10.1016/j.jhep.2020.11.050. Epub 2019Jan 27. PMID: 83431252.[facility]03-19-2024 History of Present illness Narrative* Danya Darnell APRN.MORTGAGE CLOSING CLERK - 05/08/2023 9:06 AM EDT Patient fasting for 3 hours:Yes Fibroscan was performed on May 08, 2023, by Lazara Kc LPN and results are interpreted by Danya Darnell CNP Diagnosis: Fatty metamorphosis of liver [K76.0] Please refer to get images report for individual readings Number of readings: 10 IQR %: 14 E (kpa): 5.0 CAP: 285 Impression The reading was adequate. FS=5.0 kPA. The CAP score is 285 and corresponds to steatosis grade of S2. This reading corresponds: A 97% chance of stage 0-2 fibrosis A 3% chance of stage 3-4 fibrosis (advanced fibrosis) A <1% chance of stage 4 fibrosis (cirrhosis).A kPa >20 indicates a high likelihood of stage 4fibrosis/cirrhosis, consider further testing to confirm. Danya Darnell APRN.MORTGAGE CLOSING CLERK MASLD Fibroscan Fibrosis Risk <7 kPA = F0-F2 97%, F3+F4 3%, F4 <1% <10 kPA = F0-F2 91%, F3+F4 9%, F4 1.3% 10-15 kPA = F0-F2 56%, F3+F4 43%, F4 14% >15 kPA = F0-F2 26%, F3+F4 74%, F4 46% Grade CAP value up to 237 dB/M corresponds to S0 (< 10 % Fat) CAP value between (238 - 258 dB/M) corresponds to S1 (>/= 11 % Fat) CAP value between (259 - 289 dB/M) corresponds to S2 (>/= 33 % Fat) CAP value > 290dB/M corresponds to S3 (>/= 67 % Fat) stage 0 ( S0:< 10 % steatosis) stage 1 (>/= S1: 11%-33% steatosis) stage 2 (>/= S2: 34%-66% steatosis) stage 3 (>/= S3: > 66% steatosis) Reference Ricardo Y, Ted Q, Ricardo T, Jen J, Ricardo H, Damion T. Controlled attenuation parameter for assessment of hepatic steatosis grades: a diagnostic meta-analysis. Int J Clin Exp Med. 2015 Nov 15;8(10):25900-32.PMID: [id number]; PMCID: [id number]. James Ceja, Colleen PRICE, Mamie M, Alaina F, Anne J, Lula O, Danny F, Josh M, Rona G, Keisha A, Joya E, Sherron L, Rachel G, Luci A, Suly U, Mayo S, Sanjiv, Antonio V, de Nena V, Pincomfort M, Tscleia EA. Refining the Baveno elastography criteria for the definition of compensated advanced chronic liver disease. J Hepatol. 2020;74(5):1957-1783. doi: 10.1016/j.jhep.2020.11.050. Epub 2019Jan 27. PMID: 57892617. documented in this encounterC[facility]innati [facility]24 NoteHNO ID: [id number] Author: RENEA HICKEY RN Service: ? Author Type: Registered Nurse Type: Nursing Progress Note Filed: 05/04/2023 10:48 Note Text: Abdomen soft non-distended. Will continue to monitor.[facility] 05-04-2023 Miscellaneous Notes* Discharge Instr - Nursing - Renea Hickey RN - 05/04/2023 10:49 AM EDT The patient received a copy of EGD discharge instructions that contain information for how to contact the physician who performed the procedure and when to seek medical care. documented in this encounterCincinnati [facility]03-15-2024 Nurse Note* Renea Hickey RN - 05/04/2023 10:42 AM EDT Abdomen soft non-distended. Will continue to monitor. documented in this encounterCincinnati [facility]03-15-2024 History and physical note * Sangeetha Silva MD - 05/04/2023 10:30 AM EDT UPDATED PROCEDURAL SEDATION HISTORY AND PHYSICAL EXAMINATION SERVICE DATE: 05/04/2023 SERVICE TIME: 9:46 PHYSICAL EXAM MUST BE COMPLETED ON ADMISSION PROCEDURE: EGD, with biopsies Procedure Indications: abdominal pain, nausea The History and Physical (completed in the past 30 days) has been reviewed and the patient has beenexamined. The contents accurately reflect the patient's condition with the following additions or revisions since the H&P was completed. ASA Class: ASA Class:: Patient with severe systemic disease Examination indicates no changes. AIRWAY: Airway Visualization of Uvula: Yes Mouth opening greater than 2 fingerbreadths: Yes Neck Full Range of Motion: Yes LUNGS: CARDIAC: Regular rhythm,Regular rate Provisional Diagnosis/Treatment Plan: EGD with biopsies SEDATION GOAL: Moderate This H&P can be found in the Electronic Medical Record .This patient presents for endoscopy. This will be done with IV conscious sedation. I have discussed this with the patient. The patient has multiple medical morbidities that may preclude adequate anesthesia. . However, I have counseled the patient that if there are any adverse changes, such as in vital signs, discomfort of the patient, etc., the procedure will be aborted. The patient acknowledgesthe above. SIGNATURE: Sangeetha Silva MD PATIENT NAME: Monica Maldonado DATE: May 04, 2023 TIME: 9:46 AM Source Note - Sangeetha Silva MD - 05/04/2023 10:30 AM EDT Monica Maldonado is a 63 year old female with PMHx positive for COPD, GERD, NAFLD, RA who presents forEnlarged liver (Labs 02/22/23). Surg hx pos for venkata, appendectomy. On Bentyl PRN, Prilosec 40 mg daily. Admits to chronic right sided abdominal pain for the past year. Pain is in RUQ, waxes/wanes, 1-04/28, no alleviating factors. Associated sx of nausea w/o emesis, early satiety. Has been PPI for the past 10 yrs with good relief in GERD. No recent EGD. Bms are regular, no blood. Bentyl PRN works well for intermittent loose stools. Takes ibuprofen daily for chronic arthritic pains with relief. Denies unintentional weight loss, emesis. Reports Colon 02/2022 w/ [facility] w/ Dr. Hidalgo, told she had polyps and repeat in 5 yrs 02/2023 CBC, CMP WNL 02/2023 CT abd/pelv [facility] Hepatomegalty Diverticulosis Atherosclerosis Stable left lower lung nodule (3.8 mm) Record Review: [facility] / Outside records reviewed. PAST MEDICAL HISTORY PAST MEDICAL HISTORY Diagnosis Date Allergic rhinitis due to other allergen COPD (chronic obstructive pulmonary disease) (HCC) Depressive disorder, not elsewhere classified Esophageal reflux GERD (gastroesophageal reflux disease) Other chronic bronchitis PMH - PAST MEDICAL HISTORY OF Fatty LIver Rheumatoid arthritis (HCC) Sleep apnea PAST SURGICAL HISTORY PAST SURGICAL HISTORY Procedure Laterality Date APPENDECTOMY 1978 COLONOSCOPY FLX DX W/COLLJ SPEC WHEN PFRMD 04/26/2012 Normal - 10 year follow up COLONOSCOPY SCREENING 03/13/2022 EGD TRANSORAL BIOPSY SINGLE/MULTIPLE 12/24/2007 ESOPHAGOGASTRODUODENOSCOPY TRANSORAL DIAGNOSTIC 04/26/2012 Normal LAPS SURG CHOLECYSTECTOMY W/CHOLANGIOGRAPHY 12/11/2008 Normal IOC Allergies: ALLERGIES ALLERGIES Allergen Reactions Adalimumab Other: See Comments, Rash Adhesive Rash Penicillins Tremadol [Tramadol] GI Upset Made PT not want to eat, became dehydrated Medications: CURRENT MEDICATIONS Magnesium 250 mg tab Take 250 mg by mouth. omeprazole (PRILOSEC) 40 mg capsule Take 40 mg by mouth once daily. dicyclomine (BENTYL) 20 mg tablet Take 20 mg by mouth before meals and at bedtime. diphenhydrAMINE HCL (BENADRYL ALLERGY) 50 mg tablet Take 50 mg by mouth at bedtime as needed. mirabegron (MYRBETRIQ) 25 mg Tb24 Take by mouth. cylplvjxdgp-crfwhhlet-fzycwvkb (TRELEGY ELLIPTA) 100-62.5-25 mcg inhalation powder Inhale 1 Puff asinstructed once daily. FLUoxetine (PROZAC) 10 mg capsule [...] mg Chew Take by mouth. FAMILY HISTORY FAMILY HISTORY Problem Relation Age of Onset Hypertension Mother Lipids Mother Alcohol/Drug Father Cancer Father Neck/Throat Psychiatry Father Alcohol/Drug Brother Allergies Brother Psychiatry Brother commited suicide Allergies Maternal Grandfather Hypertension Maternal Grandfather Heart Maternal Grandfather Lipids Maternal Grandfather Psychiatry Paternal Grandmother commited suicide Colon Cancer No Family History OCCUPATION & MARITAL STATUS Employer And Job Title: None on file Years Of Education Completed: Not specified Marital Status: SOCIAL HISTORY Social History Tobacco Use Smoking status: Every [...] 132/76 Pulse 74 Ht 165.1 cm (5' 5) Wt 110.7 kg (244 lb) BMI 40.60 kg/m Physical Exam Constitutional: General: She is not in acute distress. Appearance: Normal appearance. She is obese. She is not ill-appearing, toxic- appearing or diaphoretic. HENT: Head: Normocephalic and atraumatic. [...] (R11.0) Nausea (R93.2) Abnormal CT of liver Discussion/Plan/Recommendations: I have discussed the above with the patient. I have offered EGD, possible biopsies I have explained the procedure to the patient. I have counseled the patient as to the risks of the procedure, including but not limited to: infection, bleeding, injury to any intrabdominal organs such as liver/spleen, perforation of the GI tract,inability to complete the procedure, complications of anesthesia, etc. - the patient understands. The patient wishes to proceed. I have answered all questions to the patient s satisfaction and the patient has no further questions. . * Sangeetha Silva MD - 05/04/2023 10:30 AM EDT Monica Maldonado is a 63 year old female with PMHx positive for COPD, GERD, NAFLD, RA who presents forEnlarged liver (Labs 02/22/23). Surg hx pos for venkata, appendectomy. On Bentyl PRN, Prilosec 40 mg daily. Admits to chronic right sided abdominal pain for the past year. Pain is in RUQ, waxes/wanes, 1-04/28, no alleviating factors. Associated sx of nausea w/o emesis, early satiety. Has been PPI for the past 10 yrs with good relief in GERD. No recent EGD. Bms are regular, no blood. Bentyl PRN works well for intermittent loose stools. Takes ibuprofen daily for chronic arthritic pains with relief. Denies unintentional weight loss, emesis. Reports Colon 02/2022 w/ [facility] w/ Dr. Hidalgo, told she had polyps and repeat in 5 yrs 02/2023 CBC, CMP WNL 02/2023 CT abd/pelv [facility] Hepatomegalty Diverticulosis Atherosclerosis Stable left lower lung nodule (3.8 mm) Record Review: [facility] / Outside records reviewed. PAST MEDICAL HISTORY PAST MEDICAL HISTORY Diagnosis Date Allergic rhinitis due to other allergen COPD (chronic obstructive pulmonary disease) (HCC) Depressive disorder, not elsewhere classified Esophageal reflux GERD (gastroesophageal reflux disease) Other chronic bronchitis PMH - PAST MEDICAL HISTORY OF Fatty LIver Rheumatoid arthritis (HCC) Sleep apnea PAST SURGICAL HISTORY PAST SURGICAL HISTORY Procedure Laterality Date APPENDECTOMY 1978 COLONOSCOPY FLX DX W/COLLJ SPEC WHEN PFRMD 04/26/2012 Normal - 10 year follow up COLONOSCOPY SCREENING 03/13/2022 EGD TRANSORAL BIOPSY SINGLE/MULTIPLE 12/24/2007 ESOPHAGOGASTRODUODENOSCOPY TRANSORAL DIAGNOSTIC 04/26/2012 Normal LAPS SURG CHOLECYSTECTOMY W/CHOLANGIOGRAPHY 12/11/2008 Normal IOC Allergies: ALLERGIES ALLERGIES Allergen Reactions Adalimumab Other: See Comments, Rash Adhesive Rash Penicillins Tremadol [Tramadol] GI Upset Made PT not want to eat, became dehydrated Medications: CURRENT MEDICATIONS Magnesium 250 mg tab Take 250 mg by mouth. omeprazole (PRILOSEC) 40 mg capsule Take 40 mg by mouth once daily. dicyclomine (BENTYL) 20 mg tablet Take 20 mg by mouth before meals and at bedtime. diphenhydrAMINE HCL (BENADRYL ALLERGY) 50 mg tablet Take 50 mg by mouth at bedtime as needed. mirabegron (MYRBETRIQ) 25 mg Tb24 Take by mouth. qjbiumsesay-rnbdxbhtl-jyabaghc (TRELEGY ELLIPTA) 100-62.5-25 mcg inhalation powder Inhale 1 Puff asinstructed once daily. FLUoxetine (PROZAC) 10 mg capsule [...] mg Chew Take by mouth. FAMILY HISTORY FAMILY HISTORY Problem Relation Age of Onset Hypertension Mother Lipids Mother Alcohol/Drug Father Cancer Father Neck/Throat Psychiatry Father Alcohol/Drug Brother Allergies Brother Psychiatry Brother commited suicide Allergies Maternal Grandfather Hypertension Maternal Grandfather Heart Maternal Grandfather Lipids Maternal Grandfather Psychiatry Paternal Grandmother commited suicide Colon Cancer No Family History OCCUPATION & MARITAL STATUS Employer And Job Title: None on file Years Of Education Completed: Not specified Marital Status: SOCIAL HISTORY Social History Tobacco Use Smoking status: Every [...] 132/76 Pulse 74 Ht 165.1 cm (5' 5) Wt 110.7 kg (244 lb) BMI 40.60 kg/m Physical Exam Constitutional: General: She is not in acute distress. Appearance: Normal appearance. She is obese. She is not ill-appearing, toxic- appearing or diaphoretic. HENT: Head: Normocephalic and atraumatic. [...] (R11.0) Nausea (R93.2) Abnormal CT of liver Discussion/Plan/Recommendations: I have discussed the above with the patient. I have offered EGD, possible biopsies I have explained the procedure to the patient. I have counseled the patient as to the risks of the procedure, including but not limited to: infection, bleeding, injury to any intrabdominal organs such as liver/spleen, perforation of the GI tract,inability to complete the procedure, complications of anesthesia, etc. - the patient understands. The patient wishes to proceed. I have answered all questions to the patient s satisfaction and the patient has no further questions. . documented in this encounterC[facility]03-12-2024 NoteHNO ID: [id number] Author: MILLY PINTO RDMS Service: ? Author Type: Audiology Assistant Type: Progress Notes Filed: 05/01/2023 11:39 Note Text: Radiology Service Progress Note PATIENT NAME: Monica Maldonado DATE OF SERVICE: May 01, 2023 TIME: 11:39 AM PATIENT IDENTITY VERIFICATION COMPLETED USING TWO (2) IDENTIFIERS: Name and Date of confirmed by patient verbally. FALL SCREENING: Has the patient had 2 falls in the last year or 1 fall with injury or currently using an Ambulatory Assistive Device (Walker, Cane, Wheelchair, Crutches, etc.)? No PATIENT GENDER DATA: Female. status: : No status: NO. PATIENT RELEVANT IMPLANT DATA REVIEWED: Not Applicable PATIENT PRESENTS WITH AN IMPLANTABLE OR ATTACHED PIPE CAULKER: No RADIOLOGY DEPARTMENT: Ultrasound PERIPHERAL IV DATA: Not applicable SIGNED BY: Milly Pinto RDMS RVJann May 01, 2023 11:39 [facility]03-12-2024 History of Present illness Narrative* Milly Pinto RDMS - 05/01/2023 7:00 AM EDT Radiology Service Progress Note PATIENT NAME: Monica Maldonado DATE OF SERVICE: May 01, 2023 TIME: 11:39 AM PATIENT IDENTITY VERIFICATION COMPLETED USING TWO (2) IDENTIFIERS: Name and Date of confirmedby patient verbally. FALL SCREENING: Has the patient had 2 falls in the last year or 1 fall with injury or currently using an Ambulatory Assistive Device (Walker, Cane, Wheelchair, Crutches, etc.)? No PATIENT GENDER DATA: Female. status: : No status: NO. PATIENT RELEVANT IMPLANT DATA REVIEWED: Not Applicable PATIENT PRESENTS WITH AN IMPLANTABLE OR ATTACHED PIPE CAULKER: No RADIOLOGY DEPARTMENT: Ultrasound PERIPHERAL IV DATA: Not applicable SIGNED BY: Milly Pinto RDMS RVJann May 01, 2023 11:39 AM documented in this encounterCincinnati [facility]02-28-2024 NoteHNO ID: [id number] Author: PHYLLIS ALMEIDA PA-C Service: ? Author Type: Physician Field Crop Ii Farmworker Type: Progress Notes Filed: 04/18/2023 10:09 Note Text: CHIEF COMPLAINT: Patient presents with: Enlarged liver: Labs 02/22/23 HPI: Monica Maldonado is a 63 year old female with [...] weight loss, emesis. Reports Colon 02/2022 w/ [facility] w/ Dr. Hidalgo, told she had polyps and repeat in 5 yrs 02/2023 CBC, CMP WNL 02/2023 CT abd/pelv [facility] Hepatomegalty Diverticulosis Atherosclerosis Stable left lower lung [...] (MYRBETRIQ) 25 mg Tb24 Take by mouth. qekjktydxfm-tgybtvtbv-boqduuzo (TRELEGY ELLIPTA) 100-62.5-25 mcg inhalation powder Inhale [...] 132/76 Pulse 74 Ht 165.1 cm (5' 5) Wt 110.7 kg (244 lb) BMI 40.60 kg/m? Physical Exam Constitutional: General: She is not [...] No stridor. No wheezing, rhonchi or rales. Destiny (more 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[facility]02-28-2024 Instructions* Patient Instructions* Phyllis Almeida PA-C - 04/18/2023 9:58 AM [...] through your esophagus to your stomach. A musclecalled the lower esophageal sphincter controls the opening between the esophagus and the stomach. The muscle remains tightly closed except when you swallow food. When this muscle fails to close, the acid-containing contents of the stomach can travel back up into the esophagus. This backward movement is called reflux. When stomach acid enters the lower part ofthe esophagus, it can produce a burning sensation, [...] esophageal reflux, by following the tips above. Tzlb-geg-fachylu liquid antacids can also help in treating [...] involves blocking acid production in the stomach. Oogv-nnv-uwastmb medicines, such as Tums , Rolaids , Maalox , Zantac , Tagamet , Prilosec, ,Pepcid , and Axid , can generally relieve esophageal reflux symptoms. Patients with more severe symptoms orthose who have been using antacids for more than two weeks should contact their doctors, who can prescribe medicines to control or eliminate acid, such as H2-receptor antagonists and proton pump inhibitors. Only a few people need surgery to correct the disorder. documented in this encounterCincinnati [facility]02-28-2024 History of Present illness Narrative* Phyllis Almeida PA-C - 04/18/2023 9:26 AM EST CHIEF COMPLAINT: Patient presents with: Enlarged liver: Labs 02/22/23 HPI: Monica Maldonado is a 63 year old female with PMHx positive for COPD, GERD, NAFLD, RA who presents forEnlarged liver (Labs 02/22/23). Surg hx pos for [...] weight loss, emesis. Reports Colon 02/2022 w/ [facility] w/ Friend, told she had polyps and repeat in 5 yrs 02/2023 CBC, CMP WNL 02/2023 CT abd/pelv [facility] Hepatomegalty Diverticulosis Atherosclerosis Stable left lower lung [...] (MYRBETRIQ) 25 mg Tb24 Take by mouth. avdbutdqwst-suxkienug-habvakxf (TRELEGY ELLIPTA) 100-62.5-25 mcg inhalation powder Inhale 1 Puff asinstructed once daily. FLUoxetine (PROZAC) 10 mg capsule [...] 132/76 Pulse 74 Ht 165.1 cm (5' 5) Wt 110.7 kg (244 lb) BMI 40.60 kg/m Physical Exam Constitutional: General: She is not in acute distress. Appearance: Normal appearance. She is obese. She is not ill-appearing, toxic- appearing or diaphoretic. HENT: Head: Normocephalic and atraumatic. [...] which included preparing to see the patient, lwxr-ir-rweg patient care, completing clinical documentation, obtaining and/or reviewing separately obtained history, performing a medically appropriate examination, counseling and educating the pat ient/family/caregiver, ordering medications, tests, or procedures, communicating with other HCPs (not separately reported), independently interpreting results (not separately reported), communicatingresults to the patient/family/caregiver, and care coordination (not separately reported). Phyllis Almeida PA-C April 18, 2023 10:00 AM documented in this encounterCincinnati [facility]02-07-[address] Burke [facility] March 28, 2022 9:22pm Note Date/Time March 28, 2022 7 :13pm [facility] Medical Records Department [address] [place] [address] Emergency Department Summary 03/28/22 MR#: [id number] Acct: [id number] Name: MONICA MALDONADO Rep #:[id number] : 1960 62 From: Tani Turk DO PCP: Dr. Leon Pinto MD Status:REG E R Location: ED HPI History of Present Illness Chief Complaint: Chest Pain Narrative Narrative: 62-year-old female presenting with chest pain. She describes it as sharp and retrosternal. It is periodic. It last about a half a second. She states it feels like a jolt. It does not worsen with deep inspiration. She denies any injury. She states that this is happened multiple times since Sunday which isabout 4 days ago. She is not lightheaded or short of breath. No chest pain elsewhere. No nausea or vomiting. She denies abdominal pain. She has been eating and drinking normally. She making normal urine and stool. No fever, chills. Patient denies cardiac history. No history of DVT/PE. No recent surgery, recent immobilization [facility] Medical History Acute maxillary sinusitis Alcohol use Allergic rhinitis Anxiety Bicipital tendinitis of right shoulder Bursitis of right shoulder Cervical radiculopathy Cervicalgia Chronic cough COPD (chronic obstructive pulmonary disease) COPD (chronic obstructive pulmonary disease) CPAP (continuous positive airway pressure) dependence Depression Family history of alcoholism Gastric reflux GERD (gastroesophageal reflux disease) High cholesterol History of edema History of hiatal hernia History of pain when walking History of steroid therapy History of stress test Hyperlipidemia Incontinence Kidney stone Limb weakness TAMRA (obstructive sleep apnea) Restless legs Rheumatoid arthritis Rotator cuff syndrome Segmental and somatic dysfunction of lumbar region Segmental and somatic dysfunction of thoracic region Shortness of breath on exertion Sleep apnea Smoker Spontaneous rupture of extensor tendons, right forearm Tobacco abuse Wears glasses Home Medications hydroxychloroquine 200 mg tablet 200 mg PO BIDCM 05/18/16 [History Last Taken 1 Day Ago ~08/27/16] omeprazole 40 mg capsule,delayed release 40 mg PO DAILY 05/18/16 [History Last Taken 12/28/20 04:30] paroxetine HCl 20 mg tablet 20 mg PO DAILY 04/29/18 [History Last Taken Unknown] potassium citrate 15 mEq (1,620 mg) tablet,extended release 20 meq PO DAILY 12/17/18 [History Last Taken Unknown] bupropion HCl 150 mg tablet,12 hr sustained-release 150 mg PO DAILY 07/02/20 [History Last Taken Unknown] diphenhydramine HCl 50 mg capsule (Sleep Aid (diphenhydramine)) 50 mg PO QHS 07/02/20 [History Last Taken Unknown] loratadine 10 mg capsule 10 mg PO DAILY 07/02/20 [History Last Taken Unknown] abatacept 50 mg/0.4 mL subcutaneous syringe (Orencia) 50 mg subcut QWEEK 12/10/20 [History Last Taken Unknown] ibuprofen 200 mg tablet 400 mg PO Q6H PRN PAIN 12/21/20 [History Last Taken Unknown] mirabegron 25 mg tablet,extended release 24 hr (Myrbetriq) 25 mg PO DAILY 12/21/20 [History Last Taken Unknown] albuterol sulfate 90 mcg/actuation aerosol inhaler 1 - 2 puff inhalation Q6H PRNPRN Sob &/Or Wheezing #18 grams 04/20/21 [Rx Last Taken Unknown] fluticasone fur. 100 mcg-umeclid 62.5 mcg-vilant 25 mcg inhalat.powder (Trelegy Ellipta) 1 inh inhalation DAILY #60 ea 04/20/21 [Rx Last Taken 03/13/22 07:00] albuterol sulfate 2.5 mg/3 mL (0.083 %) solution for nebulization 2.5 mg (3 mL) inhalation Q6H PRN Wheezing #180 mL 04/26/21 [Rx Last Taken Unknown] clindamycin HCl 300 mg capsule 300 mg PO Q6H 03/09/22 [History Last Taken Unknown] folic acid 1 mg tablet 1 mg PO BID 03/09/22 [History Last Taken Unknown] leucovorin calcium 5 mg tablet 5 mg PO QWEEK 03/09/22 [History Last Taken Unknown] methotrexate sodium 2.5 mg tablet 20 mg PO QWEEK 03/09/22 [History Last Taken Unknown] Allergy/AdvReac Type Severity Reaction Status Date / Time adalimumab [From Humira] Allergy Rash Verified 03/28/22 17:58 Penicillins Allergy Rash Verified 03/28/22 17:58 adhesive AdvReac Rash Verified 03/28/22 17:58 tramadol AdvReac FEELING OF Verified 03/28/22 17:58 CONFUSION Family History Mother COPD (chronic obstructive pulmonary disease) Heart disease Osteoarthritis TAMRA (obstructive sleep apnea) Father Cancer throat Surgical History h/o trigger finger release History of appendectomy History of esophagogastroduodenoscopy (EGD) History of laparoscopic cholecystectomy History of surgery on arm Hx of colonoscopy Hx of surgical procedure Social History Smoking Status: Current every day smoker tobacco type: cigarettes Tobacco: How many years used: 35 second hand exposure: Yes alcohol intake: current substance use type: does not use caffeine: Yes what type of physical activity do you participate in: none ROS ROS ED Constitutional Constitutional ED: Denies chills, fever(s) or sweats Eyes Eyes: Denies blurry vision or change in vision ENT ENT ED: Denies ear pain or sore throat Cardiovascular Cardiovascular: Reports chest pain; Denies palpitations or racing heartbeat Respiratory/Chest Respiratory/Chest: Denies cough, dyspnea or sputum Gastrointestinal Gastrointestinal: Denies abdominal pain, constipation, diarrhea, nausea or vomiting Genitourinary Genitourinary ED: Denies dysuria, hematuria or urinary frequency Musculoskeletal Musculoskeletal: Denies arthralgias, myalgias or neck pain Integumentary Denies abscess, Abrasions or rash Neurologic Neurologic: Denies headache(s), paresthesias or weakness Psychiatric Psychiatric: Denies anxiety, depression, suicidal ideation or suicidal thoughts Endocrine Endocrinology: Denies polydipsia or polyuria EXAM Physical Exam Const Vital Signs: 03/28/22 17:58 03/28/22 18:16 03/28/22 20:00 Temperature 98 F Temperature Source Temporal Pulse Rate 98 78 Respiratory Rate 14 16 Blood Pressure 181/94 H 148/78 H Blood Pressure Mean 123 101 Pulse Ox 96 99 Oxygen Delivery Method Room Air Room Air Room Air General Appearance ED: Negative for pallor HEENT Reports normocephalic, head/scalp atraumatic and moist mucous membranes Eyes PERRL and EOMs intact bilaterally Neck no lymphadenopathy and supple Chest Wall inspection of chest normal and palpation of chest normal Resp normal respiratory effort and clear to auscultation bilaterally Auscultation: Negative for rales, rhonchi or wheezes Cardio regular rate and regular rhythm GI normal to inspection, nondistended, normoactive bowel sounds and non-distended Auscultation: normoactive bowel sounds Palpation: soft Narrative: Deferred Back/Spine Cervical Spine: Negative for cervical spine tenderness Extremity normal to inspection General Extremety ED: Yes edema and tenderness General Extremity: edema Neuro oriented x3 and CN's II-XII intact bilaterally Sensorium / Orientation: alert Motor Exam: strength 5/5 throughout Psych mental status grossly normal Attitude: No agitated Skin no rashes or lesions noted and no wounds General Skin Exam: Negative for jaundice or pallor MDM MDM MDM Narrative Medical decision making narrative: Patient presenting with chest wall pain. It is sharp and intermittent. It is not pleuritic however. Its not associate with deep breathing. Differential includes but not limited to ACS, PE, pneumonia, aortic dissection, costochondritis, patient obtained an EKG to assess rhythm and check for ischemia. On my interpretation this is a normal sinus rhythm with a ventricularrate of 87 bpm. MN interval 152 ms, QRS duration 80 ms, QTc 445 ms. Chest x-ray obtained patient family given paperwork. CBC obtained to assess for white blood cell count, hemoglobin, differential. This is all unremarkable. BMP to assess renal function, electrolytes and this is also normal. High-sensitivity troponin 5 and 2-hour troponin is 6. There is no significant interval change. Patient is PERC negative. Chest x-ray interpreted by myself shows no acute process. Radiologist are persistent agrees. Unclear what the source of her chest pain is however I do not believe there is anything emergent etiology to it. Patient is well-appearing and I believe she can be discharged home safely. She will follow-up with her PCP for reevaluation. Return precautions discussed. Impression: 1. Chest pain Lab Data Attestation: I reviewed the patient's lab results. Labs: Laboratory Results - last 24 hr 03/28/22 03/28/22 03/28/22 18:28 18:28 20:45 WBC 8.6 RBC 4.31 Hgb 13.8 Hct 41.4 MCV 96.1 MCH 32.0 MCHC 33.3 RDW Std Deviation 48.9 H RDW Coeff of Solo 14.0 Plt Count 347 MPV 8.4 Immature Gran % (Auto) 0.800 Neut % (Auto) 60.1 Lymph % (Auto) 30.3 [place] % (Auto) 7.2 Eos % (Auto) 1.1 Baso % (Auto) 0.5 Absolute Neuts (auto) 5.2 Absolute Lymphs (auto) 2.59 Nucleated RBC % 0 Sodium 139 Potassium 3.9 Chloride 108 H Carbon Dioxide 25.0 Anion Gap 6 BUN 15 Creatinine 0.90 Estim Creat Clear Calc 59.07 Est GFR (MDRD) Af Amer 82 Est GFR (MDRD) Non-Af 67 BUN/Creatinine Ratio 16.6 Glucose 101 Calcium 9.1 Troponin I High Sens 5 6 Radiography Diagnostic Testing: Clinical Impression(s) from Imaging Studies Chest X-Ray 03/28/22 18:20 IMPRESSION: Mild COPD. No acute disease. Electronically Signed: Rj Lopez MD at 18:35 EST Reading Location ID and State: [facility] / [place] , Service support , Discharge Plan Triage Chief Complaint: Chest Pain ED Provider: Tani Turk Dx/Rx/DC Orders Instructions: ED Chest Pain, Noncardiac Prescriptions: No Action paroxetine HCl 20 mg tablet 20 mg PO DAILY bupropion HCl 150 mg tablet sustained-release 12 hr 150 mg PO DAILY loratadine 10 mg capsule 10 mg PO DAILY diphenhydramine HCl [Sleep Aid (diphenhydramine)] 50 mg capsule 50 mg PO QHS Trelegy Ellipta 100-62.5-25 mcg blister with device 1 inh INHALATION DAILY Qty: 60 11RF albuterol sulfate 90 mcg/actuation HFA aerosol inhaler 1 - 2 puff INHALATION Q6H PRN PRN (Reason: Sob &/Or Wheezing) Qty: 18 6RF Orencia 50 mg/0.4 mL syringe 50 mg subcut QWEEK omeprazole 40 MG capsule 40 mg PO DAILY hydroxychloroquine 200 MG tablet 200 mg PO BIDCM potassium citrate 15 mEq tablet extended release 20 meq PO DAILY ibuprofen 200 mg Tablet 400 mg PO Q6H PRN (Reason: PAIN) Myrbetriq 25 mg Tablet Extended Release 24 Hr 25 mg PO DAILY clindamycin HCl 300 mg Capsule 300 mg PO Q6H methotrexate sodium 2.5 mg tablet 20 mg PO QWEEK Label Comments: TAKE 8 TABLETS BY MOUTHCONCE WEEKLY leucovorin calcium 5 mg tablet 5 mg PO QWEEK Label Comments: TAKE 1 TABLET BY MOUTHnONCE WEEKLY THE MORNING OF TAKING METHOTREXATE folic acid 1 mg tablet 1 mg PO BID Label Comments: TAKE 1 TABLET BY MOUTHEONCE DAILYT albuterol sulfate 2.5 mg /3 mL (0.083 %) solution for nebulization 2.5 mg INHALATION Q6H PRN (Reason: Wheezing) Qty: 180 3RF Primary Care Provider: Leon Pinto Chi Referrals: Leon Pinto Chi, MD [Primary Care Provider] - Disposition Disposition: Home, Self Care What to do if you have Problems For any increased pain, shortness of breath, bleeding, nausea or vomiting, chestpain, or any unexpected problems, contact your Primary Care Provider. Call [facility] ([phone]) or report to the closest Emergency Room. Call 911 if necessary. 03/28/222121 <Electronically signed by Tani Turk DO> Cosigner Signature (if applicable): CC: Dr. Leon Pinto MD ~ Signed [facility] Work Phone: 1([phone] 449-161201-23-2023 History and physical note Author Drew Friend [facility] March 13, 2022 8:43am Note Date/Time March 13, 2022 8 :43am [facility] Medical Records Department [address] [place] [id number] History & Physical Exam 03/13/22 0840 MR#: [id number] Acct: [id number] Name: MONICA MALDONADO Rep #:[id number] 25 : 1960 62 From: Drew Hidalgo DO PCP: Dr. Leon Pinto MD Status:REG S DC Location: [address] - General General Date of Admission: 03/13/22 Date of Service: 03/13/22 HPI Narrative MONICA MALDONADO, is a 62 F who presents today for screening colonoscopy. She has a past medical history of TAMRA, COPD not on home in, hypertension, hyperlipidemia, nicotine addiction who presents today for screening colonoscopy. She is not having any problems with her bowels. She not have any nausea. She denied any chest pain or shortness of breath. She denies any hematochezia or melena. [facility] Medical History (Updated 01/05/22 @ 10:47 by Vera Sam) Acute maxillary sinusitis Alcohol use Allergic rhinitis Anxiety Bicipital tendinitis of right shoulder Bursitis of right shoulder Cervical radiculopathy Cervicalgia Chronic cough COPD (chronic obstructive pulmonary disease) COPD (chronic obstructive pulmonary disease) CPAP (continuous positive airway pressure) dependence Depression Family history of alcoholism Gastric reflux GERD (gastroesophageal reflux disease) High cholesterol History of edema History of hiatal hernia History of pain when walking History of steroid therapy History of stress test Hyperlipidemia Incontinence Kidney stone Limb weakness TAMRA (obstructive sleep apnea) Restless legs Rheumatoid arthritis Rotator cuff syndrome Segmental and somatic dysfunction of lumbar region Segmental and somatic dysfunction of thoracic region Shortness of breath on exertion Sleep apnea Smoker Spontaneous rupture of extensor tendons, right forearm Tobacco abuse Wears glasses Home Medications hydroxychloroquine 200 mg tablet 200 mg PO BIDCM 05/18/16 [History Last Taken 1 Day Ago ~08/27/16] omeprazole 40 mg capsule,delayed release 40 mg PO DAILY 05/18/16 [History Last Taken 12/28/20 04:30] paroxetine HCl 20 mg tablet 20 mg PO DAILY 04/29/18 [History Last Taken Unknown] potassium citrate 15 mEq (1,620 mg) tablet,extended release 20 meq PO DAILY 12/17/18 [History Last Taken Unknown] bupropion HCl 150 mg tablet,12 hr sustained-release 150 mg PO DAILY 07/02/20 [History Last Taken Unknown] diphenhydramine HCl 50 mg capsule (Sleep Aid (diphenhydramine)) 50 mg PO QHS 07/02/20 [History Last Taken Unknown] loratadine 10 mg capsule 10 mg PO DAILY 07/02/20 [History Last Taken Unknown] abatacept 50 mg/0.4 mL subcutaneous syringe (Orencia) 50 mg subcut QWEEK 12/10/20 [History Last Taken Unknown] ibuprofen 200 mg tablet 400 mg PO Q6H PRN PAIN 12/21/20 [History Last Taken Unknown] mirabegron 25 mg tablet,extended release 24 hr (Myrbetriq) 25 mg PO DAILY 12/21/20 [History Last Taken Unknown] albuterol sulfate 90 mcg/actuation aerosol inhaler 1 - 2 puff inhalation Q6H PRNPRN Sob &/Or Wheezing #18 grams 04/20/21 [Rx Last Taken Unknown] fluticasone fur. 100 mcg-umeclid 62.5 mcg-vilant 25 mcg inhalat.powder (Trelegy Ellipta) 1 inh inhalation DAILY #60 ea 04/20/21 [Rx Last Taken Unknown] albuterol sulfate 2.5 mg/3 mL (0.083 %) solution for nebulization 2.5 mg (3 mL) inhalation Q6H PRN Wheezing #180 mL 04/26/21 [Rx Last Taken Unknown] clindamycin HCl 300 mg capsule 300 mg PO Q6H 03/09/22 [History Last Taken Unknown] folic acid 1 mg tablet 1 mg PO BID 03/09/22 [History Last Taken Unknown] leucovorin calcium 5 mg tablet 5 mg PO QWEEK 03/09/22 [History Last Taken Unknown] methotrexate sodium 2.5 mg tablet 20 mg PO QWEEK 03/09/22 [History Last Taken Unknown] Allergy/AdvReac Type Severity Reaction Status Date / Time adalimumab [From Humira] Allergy Rash Verified 03/09/22 15:19 Penicillins Allergy Rash Verified 03/09/22 15:19 adhesive AdvReac Rash Verified 03/09/22 15:19 tramadol AdvReac FEELING OF Verified 03/09/22 15:19 CONFUSION Family History Mother COPD (chronic obstructive pulmonary disease) Heart disease Osteoarthritis TAMRA (obstructive sleep apnea) Father Cancer throat Surgical History (Updated 03/09/22 @ 15:27 by Maggie Keys) h/o trigger finger release History of appendectomy History of esophagogastroduodenoscopy (EGD) History of laparoscopic cholecystectomy History of surgery on arm Hx of colonoscopy Hx of surgical procedure Social History Smoking Status: Current every day smoker tobacco type: cigarettes Tobacco: How many years used: 35 second hand exposure: Yes alcohol intake: current substance use type: does not use caffeine: Yes what type of physical activity do you participate in: none ROS Review of Systems ROS Unobtainable: other Constitutional Constitutional: Denies fatigue, fever(s), poor appetite, weight gain or weight loss ENT HEENT: Denies mouth lesions Cardiovascular Cardiovascular: Denies abdominal bloating, abdominal edema or abdominal pain Respiratory/Chest Respiratory/Chest: Denies change in mental status, change in phlegm color, chestcongestion or chest tightness Gastrointestinal Gastrointestinal: Denies belching, bloating, change in bowel habits, change in stool character, chewing difficulty, coffee ground emesis, constipation, cramping, diarrhea, dyspepsia, dysphagia, early satiety, excessive flatus, fecalincontinence, heartburn, hematemesis, hematochezia, hemorrhoids, loose stools, melena, nausea, odynophagia, rectal bleeding, tenesmus, vomiting or weight changes Genitourinary Genitourinary: Denies abdominal discomfort, burning urination or itching Musculoskeletal Musculoskeletal: Reports as per HPI; Denies muscle weakness or myalgias Integumentary Integumentary: Denies jaundice Neurologic Neurologic: Denies lack of coordination or weakness Psychiatric Psychiatric: Denies confusion, depression, memory loss, mood swings, paranoia orsuicidal ideation Endocrine Endocrinology: Denies systems reviewed and no addt'l complaints, except as documented Hematologic/Lymphatic Hematologic/Lymphatic: Denies anemia, easy bleeding, easy bruising or lymphadenopathy Allergic/Immunologic Allergic/Immunologic: Denies systems reviewed and no addt'l complaints, except as documented Physical Exam Const alert General Appearance: cooperative Orientation / Consciousness: oriented to person HEENT hearing grossly normal bilaterally Head and Scalp: normal to inspection Face and Sinus: face symmetric Nose: external nose normal Mouth: oral and palatal mucosa normal Eyes conjunctivae normal General Eye: normal appearance of both eyes Neck full ROM General: normal visual inspection Lymph Lymphatic: no lymphadenopathy noted Chest inspection of chest normal and palpation of chest normal Chest: symmetrical chest wall rise Resp normal respiratory effort Effort and Inspection: able to speak in complete sentences Cardio regular rate GI non-distended Percussion: normal to percussion Rectal Exam: deferred Neuro Speech: speech normal Gait (Neuro): normal gait Assessment & Plan Assessment/Plan (1) Encounter for screening for malignant neoplasm of colon: PLAN: She was explained alternatives, risk, benefits including not withstanding bleeding, infection, sepsis, perforation, need for emergent surgery . She will have an ASA of 3. 03/13/22 0843 <Electronically signed by Drew Hidalgo DO> Cosigner Signature (if applicable): CC: Dr. Leon Pinto MD; Drew Hidalgo DO~ Signed [facility] Work Phone: [phone]) 200-514501-23-2023 Procedure [facility] 03-13-2022 [facility]WPark[facility] HealthChief complaint+Reason for visit Narrative* Chief Complaint COVID-19 Nicotine dependence, unspecified, uncomplicated 6 M FU COVID TEST/ SYMPTOMATIC/ [facility] COVID TEST EORDERS COUGH Reason for Visit Adult BMI 34.0-34.9 kg/sq m Smoking greater than 30 pack years TAMRA (obstructive sleep apnea) 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 classification Sinus infection [facility] Work Phone: Chief complaint+Reason for visit Narrative* Chief Complaint COVID-19 Nicotine dependence, unspecified, uncomplicated 6 M FU COVID TEST/ SYMPTOMATIC/ [facility] COVID TEST EORDERS COUGH COVID 19 TEST Amb Documentation covid positive Reason for Visit Adult BMI 34.0-34.9 kg/sq m Smoking greater than 30 pack years TAMRA (obstructive sleep apnea) 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 classification Sinus infection COVID-19 [facility] Work Phone: Chivu complaint+Reason for visit Narrative* Chief Complaint COPD COPD COVID-19/[facility] [employer] 6 M FU Reason for Visit Smoking greater than 30 pack years TAMRA (obstructive sleep apnea) 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 classification [facility] Work Phone: Chidj complaint+Reason for visit Narrative* Chief Complaint 6 M FU CONGESTION, EAR PAIN COVID-19 Reason for Visit Adult BMI 34.0-34.9 kg/sq m TAMRA (obstructive sleep apnea) Smoking greater than 30 pack years 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 classification Acute bronchitis 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 classification [facility] Work Phone: Chief complaint+Reason for visit Narrative* Chief Complaint CONGESTION, EAR PAIN COVID-19 Reason for Visit Acute bronchitis 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 classification [facility] Work Phone: Chiad complaint+Reason for visit Narrative* Chief Complaint CONGESTION, EAR PAIN COVID-19 MUSCLE SPASMS OF NECK Chills (without fever) Reason for Visit Acute bronchitis 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 classification [facility] Work Phone: Chief complaint+Reason for visit Narrative* Chief Complaint CONGESTION, EAR PAIN COVID-19 MUSCLE SPASMS OF NECK Chills (without fever) CERVICAL SPINE SCREENING Reason for Visit Acute bronchitis 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 classification Spinal stenosis in cervical region Cervical spondylosis [facility] Work Phone: Evaluation note* Diagnosis Onset Date Resolution Status Adult BMI 34.0-34.9 kg/sq m acute Smoking greater than 30 pack years acute TAMRA (obstructive sleep apnea) chronic 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 classification chronic Sinus infection acute [facility] Work Phone: Evaluation note* Diagnosis Onset Date Resolution Status Adult BMI 34.0-34.9 kg/sq m acute Smoking greater than 30 pack years acute TAMRA (obstructive sleep apnea) chronic 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 classification chronic Sinus infection acute COVID-19 acute [facility] Work Phone: Evaluation note* Diagnosis Onset Date Resolution Status COVID-19 acute [facility] Work Phone: Evaluation note* Diagnosis Onset Date Resolution Status Smoking greater than 30 pack years acute TAMRA (obstructive sleep apnea) chronic 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 classification [facility] Work Phone: Evaluation note* Diagnosis Onset Date Resolution Status Encounter for screening for malignant neoplasm of colo n acute [facility] Work Phone: Evaluation note* Diagnosis Onset Date Resolution Status Encounter for screening for malignant neoplasm of colo n acute Adult BMI 34.0-34.9 kg/sq m acute TAMRA (obstructive sleep apnea) chronic Smoking greater than 30 pack years chronic 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 classification [facility] Work Phone: Evaluation note* Diagnosis Onset Date Resolution Status Adult BMI 34.0-34.9 kg/sq m acute TAMRA (obstructive sleep apnea) chronic Smoking greater than 30 pack years chronic 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 classification chronic Acute bronchitis acute 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 classification [facility] Work Phone: evaluation note* Diagnosis Onset Date Resolution Status Acute bronchitis acute 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 classification chronic [facility] Work Phone: evaluation note* Diagnosis Onset Date Resolution Status Acute bronchitis acute 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 classification chronic Spinal stenosis in cervical region acute Cervical spondylosis [facility] Work Phone: evaluation note* Diagnosis Onset Date Resolution Status Spinal stenosis in cervical region acute Cervical spondylosis [facility] Work Phone: evaluation noteNo assessment information available [facility] Work Phone: evaluation note* Diagnosis Chronic RUQ pain- Primary Abdominal pain, right upper quadrant Nausea Nausea alone Abnormal CT of liver Nonspecific (abnormal) findings on radiological and other examination of biliary tract documented in this encounter [facility] note* Diagnosis Abnormal CT of liver Nonspecific (abnormal) findings on radiological and other examination of biliary tract documented in this encounter [facility] note* Diagnosis Right upper quadrant abdominal pain- Primary Abdominal pain, right upper quadrant Chronic RUQ pain Abdominal pain, right upper quadrant Nausea Nausea alone documented in this encounter [facility] note* Diagnosis 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 documented in this encounter [facility] note* Diagnosis 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 documented in this encounter [facility] note* Diagnosis Onset Date Resolution Status TAMRA (obstructive sleep apnea) chronic Smoking greater than 30 pack years chronic 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 classification [facility] Work Phone: evaluation note* Diagnosis Chronic RUQ pain- Primary Abdominal pain, right upper quadrant 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 Right upper quadrant abdominal pain Abdominal pain, right upper quadrant documented in this encounter [facility] note* Diagnosis Chronic RUQ pain Abdominal pain, right upper quadrant Right upper quadrant abdominal pain Abdominal pain, right upper quadrant documented in this encounter [facility] for referral (narrative)* Outpatient Procedure (Routine) - Authorized Specialty Diagnoses / Procedures Referred By Tay t Referred To Contact [facility] Diagnoses Chronic RUQ pain Nausea Procedures EGD DIAGNOSTIC ESOPHAGOGASTRODUODENOS COPY TRANSORAL DIAGNOSTIC Phyllis Almeida PA-C [address] [place] [address] [facility] [place] [address] [place] [address] Referral ID Status Reason Start Date Expiration Date Visits Requested Visits Authorized [id number] Authorized Auto-Generat ed Referral 04/18/2023 04/18/2024 1 1 * Diagnostic Procedure Only (Routine) - Authorized Specialty Diagnoses / Procedures Referred By Contac t Referred To Contact [facility] Diagnoses Abnormal CT of liver Procedures US ABD RIGHT UPPER QUADRANT US ABDOMINAL REAL TIME W/IMAGE LIMITED Phyllis Almeida PA-C [address] [place] [address] [place] [address] Referral ID Status Reason Start Date Expiration Date Visits Requested Visits Authorized [id number] Authorized Auto-Generat ed Referral 04/18/2023 05/17/2024 1 1 [facility] for referral (narrative)* Diagnostic Procedure Only (Routine) - Closed Specialty Diagnoses / Procedures Referred By Contac t Referred To Contact [facility] Diagnoses Abnormal CT of liver Procedures US ABD RIGHT UPPER QUADRANT US ABDOMINAL REAL TIME W/IMAGE LIMITED Phyllis Almeida PA-C [address] [place] [address] [place] [address] Referral ID Status Reason Start Date Expiration Date V isits Requested Visits Authorized [id number] Closed Auto-Generate d Referral 04/18/2023 05/17/2024 1 1 [facility] for referral (narrative)* Outpatient Procedure (Routine) - Closed Specialty Diagnoses / Procedures Referred By Contac t Referred To Contact [facility] Diagnoses Chronic RUQ pain Nausea Procedures EGD DIAGNOSTIC ESOPHAGOGASTRODUODENOS COPY TRANSORAL DIAGNOSTIC Phyllis Almeida PA-C [address] [place] [address] [facility] [address] [address] Referral ID Status Reason Start Date Expiration Date V isits Requested Visits Authorized [id number] Closed Auto-Generate d Referral 04/18/2023 04/18/2024 1 1 [facility] for visit Narrative* Outpatient Procedure (Routine) - Closed Specialty Diagnoses / Procedures Referred By Tay english Referred To Contact [facility] Diagnoses Chronic RUQ pain Nausea Procedures EGD DIAGNOSTIC ESOPHAGOGASTRODUODENOS COPY TRANSORAL DIAGNOSTIC Phyllis Almeida PA-C [address] [place] [address] [facility] [address] [address] Referral ID Status Reason Start Date Expiration Date V isits Requested Visits Authorized [id number] Closed Auto-Generate d Referral 04/18/2023 04/18/2024 1 1 [facility] for visit Narrative* Diagnostic Procedure Only (Routine) - Closed Specialty Diagnoses / Procedures Referred By Tay english Referred To Contact [facility] Diagnoses Chronic RUQ pain Right upper quadrant abdominal pain Procedures MRI PANC/KATIE WO/W IVCON MRI ABDOMEN W/O & W/CONTRAST MATERIAL Phyllis Almeida PA-C [address] [place] [address] [id number] Referral ID Status Reason Start Date Expiration Date V isits Requested Visits Authorized [id number] Closed Auto-Generate d Referral 05/14/2023 08/12/2023 1 1 [facility] Summary Purpose Family History No Family History Records Found Relationship Condition Age at Onset Recorded Date/T guillermo mother Chronic obstructive pulmonary disease Unk nown Cardiac disease Unknown Osteoarthritis Unknown Obstructive sleep apnea syndrome Unknown father Malignant neoplasm Unknown Relationship Condition Age at Onset Recorded Date/T guillermo mother Chronic obstructive pulmonary disease Unk nown Cardiac disease Unknown Osteoarthritis Unknown Obstructive sleep apnea syndrome Unknown Hypertension Unknown father Malignant neoplasm Unknown Substance abuse Unknown brother Substance abuse Unknown Allergy Unknown grandmother Allergy Unknown Advance Directives No Advanced Directives Records Found Advance Directive Response Recorded Date/ Time Advance Directives No March 1:14pm Living Will No December 21 2:18pm Power of Assistant Service Manager No December 21, 2020 2:18pm Advance Directive Response Recorded Date/ Time Advance Directives No March 12:14pm Living Will No March 09 3:27pm Power of Assistant Service Manager No March 09, 2022 3:27pm Advance Directive Response Recorded Date/ Time Advance Directives No March 12:14pm Living Will No March 28 6:05pm Power of Assistant Service Manager No March 28, 2022 6:05pm Advance Directive Response Recorded Date/ Time Advance Directives No March 1:14pm Living Will No March 28 7:05pm Power of Assistant Service Manager No March 28, 2022 7:05pm Advance Directive Response Recorded Date/ Time Advance Directives No December 9:22am Living Will No March 28 7:05pm Power of Assistant Service Manager No March 28, 2022 7:05pm Living Will No November 20 10:09am Power of Assistant Service Manager No November 20 024 10:09am Advance Directive Response Recorded Date/ Time Advance Directives No December 9:22am Living Will No March 28 7:05pm Do you have a Healthcare Power of Assistant Service Manager? No March 28, 2022 7:05pm Advance Directive Response Recorded Date/ Time Living Will No March 28 7:05pm Do you have a Healthcare Power of Assistant Service Manager? No March 28, 2022 7:05pm Advance Directives No December 9:22am Chief Complaint and Reason for Visit Chief Complaint 6 M FU COVID TEST/ SYMPTOMATIC/ [facility] COVID TEST EORDERS COUGH COVID 19 TEST COVID TEST/[facility] Amb Documentation covid positive Reason for Visit Adult BMI 34.0-34.9 kg/sq m Smoking greater than 30 pack years TAMRA (obstructive sleep apnea) 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 classification Sinus infection COVID-19 Chief Complaint COVID 19 TEST COVID TEST/[facility] Amb Documentation covid positive COPD COPD Reason for Visit COVID-19 Chief Complaint SCREENING Amb Documentation Reason for Visit Encounter for screen ing for malignant neoplasm of colon Chief Complaint SCREENING Amb Documentation CP Reason for Visit Encounter for screen ing for malignant neoplasm of colon Chief Complaint CP NICOTINE DEPENDENCE 6 M FU Reason for Visit Encounter for screen ing for malignant neoplasm of colon Adult BMI 34.0-34.9 kg/sq m TAMRA (obstructive sleep apnea) Smoking greater than 30 pack years 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 classification Chief Complaint MUSCLE SPASMS OF NEC K Chills (without fever) CERVICAL SPINE SCREENING Reason for Visit Spinal stenosis in c ervical region Cervical spondylosis Chief Complaint ABD PAIN Chief Complaint ABD PAIN BACK PAIN NICOTINE DEPENDENCE Chief Complaint ABD PAIN BACK PAIN NICOTINE DEPENDENCE MASK ISSUES BACK PAIN RX HERE 1 Y FU Reason for Visit TAMRA (obstructive sle ep apnea) Smoking greater than 30 pack years 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 classification Chief Complaint ABD PAIN BACK PAIN NICOTINE DEPENDENCE MASK ISSUES 1 Y FU BACK PAIN RX HERE Reason for Visit TAMRA (obstructive sle ep apnea) Smoking greater than 30 pack years 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 classification Chief Complaint Admit Date CONGESTION/EAR PAIN January 12, 2024 8:24am CHEST XRAY January 25, 2024 4 :55pm pain- LUMBAR AND CERVIAL March 26 025 4:37pm CERVICAL/LUMBAR SPINE April 01 11:07am Chronic obstructive pulmonary disease, u nspecified April 25, 2024 2:12pm 6 M FU April 28, 2024 10: 53am E-ORDER April 28, 2024 11: 36am RUQ PAIN May 01, 2024 7:2 2am BACK/NECK May 05, 2024 5:3 0pm Reason for Visit Admit Date Acute sinusitis January 12, 2024 8:24am Cervical radiculopathy April 01 11:07am Spondylolisthesis at L5-S1 level uar 2024 11:07am Lumbar stenosis with neurogenic claudica tion April 01, 2024 11:07am Epigastric pain April 28, 2024 10: 53am Fatty (change of) liver, not elsewhere c lassified April 28, 2024 10:53am RUQ pain April 28, 2024 10: 53am GERD (gastroesophageal reflux disease) M 2024 10:53am Chief Complaint Admit Date CONGESTION/EAR PAIN January 12, 2024 8:24am CHEST XRAY January 25, 2024 4 :55pm pain- LUMBAR AND CERVIAL March 26 2 025 4:37pm CERVICAL/LUMBAR SPINE April 01 11:07am Chronic obstructive pulmonary disease, u nspecified April 25, 2024 2:12pm 6 M FU April 28, 2024 10: 53am E-ORDER April 28, 2024 11: 36am RUQ PAIN May 01, 2024 7:2 2am BACK/NECK May 07, 2024 4:3 0pm Chief Complaint Admit Date CHEST XRAY January 25, 2024 4 :55pm pain- LUMBAR AND CERVIAL March 26 2 025 4:37pm CERVICAL/LUMBAR SPINE April 01 11:07am Chronic obstructive pulmonary disease, u nspecified April 25, 2024 2:12pm 6 M FU April 28, 2024 10: 53am E-ORDER April 28, 2024 11: 36am RUQ PAIN May 01, 2024 7:2 2am STENOSIS May 12, 2024 3:2 7pm BACK/NECK May 13, 2024 5:0 0pm Reason for Visit Admit Date Cervical radiculopathy April 01 11:07am Spondylolisthesis at L5-S1 level [id number] 11:07am Lumbar stenosis with neurogenic claudica tion April 01, 2024 11:07am Epigastric pain April 28, 2024 10: 53am Fatty (change of) liver, not elsewhere c lassified April 28, 2024 10:53am RUQ pain April 28, 2024 10: 53am GERD (gastroesophageal reflux disease) 2024 10:53am Chief Complaint Admit Date CHEST XRAY January 25, 2024 4 :55pm pain- LUMBAR AND CERVIAL March 26 2 025 4:37pm CERVICAL/LUMBAR SPINE April 01 11:07am Chronic obstructive pulmonary disease, u nspecified April 25, 2024 2:12pm 6 M FU April 28, 2024 10: 53am E-ORDER April 28, 2024 11: 36am RUQ PAIN May 01, 2024 7:2 2am STENOSIS May 12, 2024 3:2 7pm BACK/NECK May 15, 2024 5:0 0pm 1 Y FU May 19, 2024 9:3 8am Reason for Visit Admit Date Cervical radiculopathy April 01 11:07am Spondylolisthesis at L5-S1 level r 2024 11:07am Lumbar stenosis with neurogenic claudica tion April 01, 2024 11:07am Epigastric pain April 28, 2024 10: 53am Fatty (change of) liver, not elsewhere c lassified April 28, 2024 10:53am RUQ pain April 28, 2024 10: 53am GERD (gastroesophageal reflux disease) M arch 2024 10:53am Irregular heart rhythm May 19, 2024 9:38am TAMRA (obstructive sleep apnea) April 9:38am Shortness of breath May 19, 2024 9:3 8am Smoking greater than 30 pack years May 19, 2024 9:38am 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 classifica tion May 19, 2024 9:38am Chief Complaint Admit Date CHEST XRAY January 25, 2024 4 :55pm pain- LUMBAR AND CERVIAL March 26 025 4:37pm CERVICAL/LUMBAR SPINE April 01 11:07am Chronic obstructive pulmonary disease, u nspecified April 25, 2024 2:12pm 6 M FU April 28, 2024 10: 53am E-ORDER April 28, 2024 11: 36am RUQ PAIN May 01, 2024 7:2 2am STENOSIS May 12, 2024 3:2 7pm 1 Y FU May 19, 2024 9:3 8am LUMBAR SPINE May 22, 2024 1:50 pm BACK/NECK May 22, 2024 5:00 pm Reason for Visit Admit Date Cervical radiculopathy April 01 11:07am Spondylolisthesis at L5-S1 level y 2024 11:07am Lumbar stenosis with neurogenic claudica tion April 01, 2024 11:07am Epigastric pain April 28, 2024 10: 53am Fatty (change of) liver, not elsewhere c sified April 28, 2024 10:53am RUQ pain April 28, 2024 10: 53am GERD (gastroesophageal reflux disease) [facility] 2024 10:53am Irregular heart rhythm May 19, 2024 9:38am TAMRA (obstructive sleep apnea) April 9:38am Shortness of breath May 19, 2024 9:3 8am Smoking greater than 30 pack years May 19, 2024 9:38am 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 classifica tion May 19, 2024 9:38am Lumbar radiculopathy May 22, 2024 1:5 0pm Chief Complaint Admit Date pain- LUMBAR AND CERVIAL March 26, 2 025 4:37pm CERVICAL/LUMBAR SPINE April 01 11:07am Chronic obstructive pulmonary disease, u nspecified April 25, 2024 2:12pm 6 M FU April 28, 2024 10: 53am E-ORDER April 28, 2024 11: 36am RUQ PAIN May 01, 2024 7:2 2am STENOSIS May 12, 2024 3:2 7pm 1 Y FU May 19, 2024 9:3 8am LUMBAR SPINE May 22, 2024 1:50 pm BACK/NECK May 22, 2024 5:00 pm EORDERS- RAFAEL AND DEE DEE May 27 10:33am LIVER ISSUES May 29, 2024 12: 55pm Reason for Visit Admit Date Cervical radiculopathy April 01 11:07am Spondylolisthesis at L5-S1 level uar y 2024 11:07am Lumbar stenosis with neurogenic claudica tion April 01, 2024 11:07am Epigastric pain April 28, 2024 10: 53am GERD (gastroesophageal reflux disease) M 2024 10:53am RUQ pain April 28, 2024 10: 53am Fatty (change of) liver, not elsewhere c lassified April 28, 2024 10:53am Irregular heart rhythm May 19, 2024 9:38am TAMRA (obstructive sleep apnea) April 9:38am Shortness of breath May 19, 2024 9:3 8am Smoking greater than 30 pack years May 19, 2024 9:38am 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 classifica tion May 19, 2024 9:38am Lumbar radiculopathy May 22, 2024 1:5 0pm Dyspepsia May 29, 2024 12: 55pm Metabolic dysfunction-associ ated steatotic liver disease (MASLD) May 29, 2024 12:55pm RUQ pain May 29, 2024 12: 55pm Reason for Referral Specialty Diagnoses / Procedures Referred By Contac t Referred To Contact MR IMAGING Diagnoses Chronic RUQ pain Right upper quadrant abdominal pain Procedures MRI 3D POST PROCESSING 3D RENDERING W/INTERP&POSTPROC DIFF WORK STATION Phyllis Almeida PA-C [id number] [place] [address] [place] [id number] Referral ID Status Reason Start Date Expiration Date Visits Requested Visits Authorized [id number] Pending Review Auto-Generat ed Referral 05/11/2023 06/09/2024 1 1 Specialty Diagnoses / Procedures Referred By Maddisonac t Referred To Contact MR IMAGING Diagnoses Chronic RUQ pain Right upper quadrant abdominal pain Procedures MRI PANC/KATIE WO/W IVCON MRI ABDOMEN W/O & W/CONTRAST MATERIAL Phyllis Almeida PA-C [address] [place] [address] Mr Imaging [id number] Referral ID Status Reason Start Date Expiration Date Visits Requested Visits Authorized [id number] Pending Review Auto-Generat ed Referral 05/11/2023 06/09/2024 1 1 Additional Source Comments (unrecognized sect ion and content) No Status Records Found INFORMATION SOURCE (unrecogn ized section and content) DATE CREATED AUTHOR 06/21/2018 [facility] DATE CREATED AUTHOR AUTHOR'S ORGANIZ ATION 05/29/2023 [facility] DATE CREATED AUTHOR AUTHOR'S ORGANIZ ATION [facility] Goals (unrecognized section and content) Goals may be documented in a n alternate sectionGoals may be documented in an alternate sectionGoals may be documented in an alternate sectionGoals may be documented in an alternate sectionGoals may be documented in an alternate sectionGoals may be documented in an alternate sectionGoals may be documented in an alternate sectionGoals may be documented in an alternate sectionGoals may be documented in an alternate sectionGoals may be documented in an alternate sectionGoals may be documented in an alternate sectionGoals may be documented in an alternate sectionGoals may be documented in an alternate sectionGoals may be documented in an alternate sectionGoals may be documented in an alternate sectionGoals may be documented in an alternate sectionGoals may be documented in an alternate sectionGoals may be documented in an alternate section Care Teams (unrecognized sec tion and content) Team Status: Active Member Role Status Dates Dr. Leon Pinto MD Family Provider Active Dr. Leon Pinto MD Primary Care Provider Active Team Status: Active Member Role Status Dates Dr. Leon Pinto MD Primary Care Provider Active Vera Sam Attending Provider Active Team Status: Active Member Role Status Dates Dr. Leon Pinto MD Primary Care Provider, Referring Provider Active Dr. Drew Hidalgo DO Attending Provider, Other Prov ider Active Team Status: Inactive Member Role Status Dates Dr. Leon Pinto MD Primary Care Provider, Attending Provider Active Team Status: Inactive Member Role Status Dates Dr. Leon Pinto MD Primary Care Provider, Referring Provider Active Dr. Drew Hidalgo DO Attending Provider Active Team Status: Inactive Member Role Status Dates Dr. Leon Pinto MD Primary Care Provider Active KAYLEE COULTER MD Attending Provider, Referring Pro vider Active Team Status: Inactive Member Role Status Dates Dr. Leon Pinto MD Primary Care Provider Active Dr. Tani Turk DO Emergency Provider Active Team Status: Inactive Member Role Status Dates Dr. Leon Pinto MD Primary Care Provider, Referring Provider Active Delisa Foster COMPENSATION ANALYST, COMPENSATION ANALYST-C Attending Provider Active Team Status: Inactive Member Role Status Dates Dr. Leon Pinto MD Primary Care Provider Active Delisa Foster COMPENSATION ANALYST, COMPENSATION ANALYST-C Attending Provider Active Team Status: Inactive Member Role Status Dates Dr. Leon Pinto MD Primary Care Provider Active Dr. Tani Turk DO Attending Provider, Emergency Provider Active Team Status: Inactive Member Role Status Dates Dr. Leon Pinto MD Primary Care Provider Active KAYLEE COULTER MD Attending Provider Active Team Status: Inactive Member Role Status Dates Dr. Leon Pinto MD Primary Care Provider, Referring Provider Active Mick Magaña PA, PA Attending Provider Active Team Status: Inactive Member Role Status Dates Dr. Leon Pinto MD Primary Care Provi norberto, Attending Provider, Referring Provider Active Team Status: Active Member Role Status Dates Dr. Leon Pinto MD Primary Care Provi norberto, Attending Provider, Referring Provider Active Team Status: Inactive Member Role Status Dates Dr. Leon Pinto MD Primary Care Provider, Referring Provider Active Dr. Ventura Figueredo DO Attending Provider Active Zinc Plating Machine Operator Relationship Specialty Start Date End Date Summer Funez MD [address] [facility] [address] [place], [place] [id number] PCP - General Internal Medicine 04/18/23 Team Status: Active Member Role Status Dates Dr. Leon Pinto MD Family Provider Active Summer Funez MD Primary Care Provider Active Team Status: Active Member Role Status Dates Delisa Foster COMPENSATION ANALYST, COMPENSATION ANALYST-C Attending Provider, Referrin g Provider Active Summer Funez MD Primary Care Provider Active Team Status: Inactive Member Role Status Dates Summer Funez MD Primary Care Provide r, Attending Provider, Referring Provider Active Team Status: Inactive Member Role Status Dates Delisa Foster COMPENSATION ANALYST, COMPENSATION ANALYST-C Attending Provider, Referrin g Provider Active Summer Funez MD Primary Care Provider Active Zinc Plating Machine Operator Relationship Specialty Start Date End Date Summer Funez MD [address] [facility] [address] [place] [address] PCP - General Internal Medicine 04/18/23 Zinc Plating Machine Operator Relationship Specialty Start Date End Date Summer Funez MD [address] [facility] [address] [place], [place] [id number] PCP - General Internal Medicine 04/18/23 Zinc Plating Machine Operator Relationship Specialty Start Date End Date Summer Funez MD [address] [facility] [address] [place], [place] [id number] PCP - General Internal Medicine 04/18/23 Zinc Plating Machine Operator Relationship Specialty Start Date End Date Summer Funez MD [address] [facility] [address] [place], [place] [id number] PCP - General Internal Medicine 04/18/23 Zinc Plating Machine Operator Relationship Specialty Start Date End Date Summer Funez MD [address] [facility] [address] [place] [address] PCP - General Internal Medicine 04/18/23 Zinc Plating Machine Operator Relationship Specialty Start Date End Date Summer Funez MD [address] [facility] [address] [place], [place] [id number] PCP - General Internal Medicine 04/18/23 Team Status: Inactive Member Role Status Dates Dr. Leon Pinto MD Referring Provider Active Dr. Semaj Joseph MD Attending Provider Active Summer Funez MD Primary Care Provider Active Team Status: Active Member Role Status Dates Summer Funez MD Primary Care Provide r, Attending Provider, Referring Provider Active Team Status: Inactive Member Role Status Dates Summer Funez MD Primary Care Provider Active Dr. Semaj Joseph MD Attending Provider Active Zinc Plating Machine Operator Relationship Specialty Start Date End Date Summer Funez MD [address] [facility] [address] [place] [address] PCP - General Internal Medicine 04/18/23 Zinc Plating Machine Operator Relationship Specialty Start Date End Date Summer Funez MD [address] [facility] [address] [place] [address] PCP - General Internal Medicine 04/18/23 Zinc Plating Machine Operator Relationship Specialty Start Date End Date Summer Funez MD [address] [facility] [address] [place] [address] PCP - General Internal Medicine 04/18/23 Team Status: Active Member Role Status Dates Summer Funez MD Primary Care Provider Active Team Status: Inactive Member Role Status Dates Summer Funez MD Primary Care Provider Active St art: January 07, 2024 End: January 07, 2024 Dr. jR Bravo MD Attending Provider Active Start: January 07, 2024 End: January 07, 2024 Dr. Rj Bravo MD Referring Provider Active Start: January 07, 2024 End: January 07, 2024 Team Status: Inactive Member Role Status Keke Funez MD Primary Care Provider Active St art: January 12, 2024 End: January 12, 2024 Summer Funez MD Referring Provider Active Start : January 12, 2024 End: January 12, 2024 ILYA Jones Attending Provider Active Sta rt: January 12, 2024 End: January 12, 2024 Team Status: Inactive Member Role Status Keke Funez MD Primary Care Provider Active St art: January 25, 2024 End: January 25, 2024 Summer Funez MD Attending Provider Active Start : January 25, 2024 End: January 25, 2024 Summer Funez MD Referring Provider Active Start : January 25, 2024 End: January 25, 2024 Team Status: Inactive Member Role Status Keke Funez MD Primary Care Provider Active St art: March 26, 2024 End: March 26, 2024 ILYA Antunez Attending Provider Active Star t: March 26, 2024 End: March 26, 2024 ILYA Antunez Referring Provider Active Star t: March 26, 2024 End: March 26, 2024 Team Status: Inactive Member Role Status Keke Funez MD Primary Care Provider Active St art: April 01, 2024 End: April 01, 2024 Summer Funez MD Referring Provider Active Start : April 01, 2024 End: April 01, 2024 ILYA Antunez Attending Provider Active Star t: April 01, 2024 End: April 01, 2024 Team Status: Inactive Member Role Status Keke Funez MD Primary Care Provider Active St art: April 07, 2024 End: April 07, 2024 Dr. Rj Bravo MD Attending Provider Active Start: April 07, 2024 End: April 07, 2024 Dr. Rj Bravo MD Referring Provider Active Start: April 07, 2024 End: April 07, 2024 Team Status: Inactive Member Role Status Keke Funez MD Primary Care Provider Active St art: April 25, 2024 End: April 25, 2024 Dr. Semaj Joseph MD Attending Provider Active Start: April 25, 2024 End: April 25, 2024 Dr. Semaj Joseph MD Referring Provider Active Start: April 25, 2024 End: April 25, 2024 Team Status: Inactive Member Role Status Keke Funez MD Primary Care Provider Active St art: April 28, 2024 End: April 28, 2024 Summer Funez MD Referring Provider Active Start : April 28, 2024 End: April 28, 2024 Heather Hall COMPENSATION ANALYST-C Attending Provider Active Start: April 28, 2024 End: April 28, 2024 Team Status: Active Member Role Status Keke Funez MD Primary Care Provider Active St art: April 28, 2024 Heather Hall COMPENSATION ANALYST-C Attending Provider Active Start: April 28, 2024 Heather Hall COMPENSATION ANALYST-C Referring Provider Active Start: April 28, 2024 Team Status: Active Member Role Status Keke Funez MD Primary Care Provider Active St art: May 01, 2024 Heather Hall COMPENSATION ANALYST-C Attending Provider Active Start: May 01, 2024 Heather Hall NP-C Referring Provider Active Start: May 01, 2024 Team Status: Active Member Role Status Keke Funez MD Primary Care Provider Active St art: May 05, 2024 ILYA Antunez Attending Provider Active Star t: May 05, 2024 ILYA Antunez Referring Provider Active Star t: May 05, 2024 Team Status: Inactive Member Role Status Keke Funez MD Primary Care Provider Active St art: April 28, 2024 End: April 28, 2024 Heather Hall COMPENSATION ANALYST-C Attending Provider Active Start: April 28, 2024 End: April 28, 2024 Heather Hall NP-C Referring Provider Active Start: April 28, 2024 End: April 28, 2024 Team Status: Active Member Role Status Keke Funez MD Primary Care Provider Active St art: May 07, 2024 ILYA Antunez Attending Provider Active Star t: May 07, 2024 ILYA Antunez Referring Provider Active Star t: May 07, 2024 Team Status: Inactive Member Role Status Keke Funez MD Primary Care Provider Active St art: May 01, 2024 End: May 01, 2024 Heather Hall COMPENSATION ANALYST-C Attending Provider Active Start: May 01, 2024 End: May 01, 2024 Heather Hall COMPENSATION ANALYST-C Referring Provider Active Start: May 01, 2024 End: May 01, 2024 Team Status: Active Member Role Status Keke Funez MD Primary Care Provider Active St art: May 12, 2024 ILYA Antunez Attending Provider Active Star t: May 12, 2024 ILYA Antunez Referring Provider Active Star t: May 12, 2024 Team Status: Active Member Role Status Keke Funez MD Primary Care Provider Active St art: May 13, 2024 ILYA Antunez Attending Provider Active Star t: May 13, 2024 ILYA Antunez Referring Provider Active Star t: May 13, 2024 Team Status: Inactive Member Role Status Keke Funez MD Primary Care Provider Active St art: May 12, 2024 End: May 12, 2024 ILYA Antunez Attending Provider Active Star t: May 12, 2024 End: May 12, 2024 ILYA Antunez Referring Provider Active Star t: May 12, 2024 End: May 12, 2024 Team Status: Active Member Role Status Keke Funez MD Primary Care Provider Active St art: May 15, 2024 ILYA Antunez Attending Provider Active Star t: May 15, 2024 ILYA Antunez Referring Provider Active Star t: May 15, 2024 Team Status: Inactive Member Role Status Keke Funez MD Primary Care Provider Active St art: May 19, 2024 End: May 19, 2024 Summer Funez MD Referring Provider Active Start : May 19, 2024 End: May 19, 2024 Delisa Foster NP, COMPENSATION ANALYST-C Attending Provider Active Start: May 19, 2024 End: May 19, 2024 Team Status: Inactive Member Role Status Keke Funez MD Primary Care Provider Active St art: May 22, 2024 End: May 22, 2024 Summer Funez MD Referring Provider Active Start : May 22, 2024 End: May 22, 2024 ILYA Antunez Attending Provider Active Star t: May 22, 2024 End: May 22, 2024 Team Status: Inactive Member Role Status Keke Funez MD Primary Care Provider Active St art: May 22, 2024 End: May 22, 2024 ILYA Antunez Attending Provider Active Star t: May 22, 2024 End: May 22, 2024 ILYA Antunez Referring Provider Active Star t: May 22, 2024 End: May 22, 2024 Team Status: Inactive Member Role Status Dates Summer Funez MD Primary Care Provider Active St art: May 27, 2024 End: May 27, 2024 Summer Funez MD Other Provider Active Start: 2024 End: May 27, 2024 VALERIE Palomino Attending Provider Active Start: May 27, 2024 End: May 27, 2024 VALERIE Palomino Referring Provider Active Start: May 27, 2024 End: May 27, 2024 Team Status: Inactive Member Role Status Keke Funez MD Primary Care Provider Active St art: May 29, 2024 End: May 29, 2024 Summer Funez MD Referring Provider Active Start : May 29, 2024 End: May 29, 2024 Dr. Wesley Lizama MD Attending Provider Active Start: May 29, 2024 End: May 29, 2024 Source Comments (unrecognize d section and content) In the event this informatio n is protected by the Federal Confidentiality of Alcohol and Drug Abuse Patient Records regulations: The Federal rules restrict any use of the information to criminally investigate or prosecute any alcohol or drug abuse patient.[facility] CenterIn the event this information is protected by the Federal Confidentiality of Alcohol and Drug Abuse Patient Records regulations: The Federal rules restrict any use of the information to criminally investigate or prosecute any alcohol or drug abuse patient.[facility] CenterIn the event this information is protected by the Federal Confidentiality of Alcohol and Drug Abuse Patient Records regulations: The Federal rules restrict any use of the information to criminally investigate or prosecute any alcohol or drug abuse patient.[facility] CenterIn the event this information is protected by the Federal Confidentiality of Alcohol and Drug Abuse Patient Records regulations: The Federal rules restrict any use of the information to criminally investigate or prosecute any alcohol or drug abuse patient.[facility] CenterIn the event this information is protected by the Federal Confidentiality of Alcohol and Drug Abuse Patient Records regulations: The Federal rules restrict any use of the information to criminally investigate or prosecute any alcohol or drug abuse patient.[facility] CenterIn the event this information is protected by the Federal Confidentiality of Alcohol and Drug Abuse Patient Records regulations: The Federal rules restrict any use of the information to criminally investigate or prosecute any alcohol or drug abuse patient.[facility] CenterIn the event this information is protected by the Federal Confidentiality of Alcohol and Drug Abuse Patient Records regulations: The Federal rules restrict any use of the information to criminally investigate or prosecute any alcohol or drug abuse patient.[facility] CenterIn the event this information is protected by the Federal Confidentiality of Alcohol and Drug Abuse Patient Records regulations: The Federal rules restrict any use of the information to criminally investigate or prosecute any alcohol or drug abuse patient.[facility] CenterIn the event this information is protected by the Federal Confidentiality of Alcohol and Drug Abuse Patient Records regulations: The Federal rules restrict any use of the information to criminally investigate or prosecute any alcohol or drug abuse patient.[facility] CenterIn the event this information is protected by the Federal Confidentiality of Alcohol and Drug Abuse Patient Records regulations: The Federal rules restrict any use of the information to criminally investigate or prosecute any alcohol or drug abuse patient.[facility] CenterIn the event this information is protected by the Federal Confidentiality of Alcohol and Drug Abuse Patient Records regulations: The Federal rules restrict any use of the information to criminally investigate or prosecute any alcohol or drug abuse patient.[facility] Reason for Visit (unrecogniz ed section and content) Reason Comments Enlarged liver Labs 02/22/23 Reason Comments Radiology US Specialty Diagnoses / Procedures Referred By Maddisonac t Referred To Contact US IMAGING Diagnoses Abnormal CT of liver Procedures US ABD RIGHT UPPER QUADRANT US ABDOMINAL REAL TIME W/IMAGE LIMITED Phyllis Almeida PA-C [address] [place] [address] [place] [address] Referral ID Status Reason Start Date Expiration Date V isits Requested Visits Authorized [id number] Closed Auto-Generate d Referral 04/18/2023 05/17/2024 1 1 Reason Comments Fibroscan Specialty Diagnoses / Procedures Referred By Contthee t Referred To Contact [facility] Diagnoses Fatty metamorphosis of liver Procedures DDI VIBRATION CONTROLLED TRANSIENT ELASTOGRAPHY (VCTE) LIVER ELASTOGRAPHY W/O IMAG W/I&R Phyllis Almeida PA-C [address] [place] [address] [facility] [place] [address] [place] [address] Referral ID Status Reason Start Date Expiration Date V isits Requested Visits Authorized [id number] Closed Auto-Generate d Referral 05/01/2023 04/30/2024 1 1 Reason Comments Abdominal Pain Inactive Administered Medications - up to 3 most recent administrations Administered Medications (un recognized section and content) Medication Order MAR Action Action Date Dose Rate Site benzocaine 20% 1 [place] (TOPEX) 1 [place], TOPICAL, DIRECTED, Starting on Sun05/04/23 at 1030, Until Sun05/04/23 at 1429, Dosing as directed for intraprocedural use only - Pharmaceutical Waste: Aerosol -, Intraprocedure Given 05/04/2023 10:20 AM EDT 5 Sprays diphenhydrAMINE 12.5-50 mg injection (BENADRYL) 12.5-50 mg, INTRAVENOUS, DIRECTED, Starting on Sun05/04/23 at 1030, Until Sun05/04/23 at 1429, DOSING DIRECTED BY PHYSICIAN FOR PROCEDURAL SEDATION ONLY, Intraprocedure Given 05/04/2023 10:24 AM EDT 50 mg fentaNYL 50 mcg/mL 25-100 mcg injection (SUBLIMAZE) 25-100 mcg, INTRAVENOUS, DIRECTED, Starting on Sun05/04/23 at 1030, Until Sun05/04/23 at 1429, DOSING DIRECTED BY PHYSICIAN FOR PROCEDURAL SEDATION ONLY, Intraprocedure Given 05/04/2023 10:21 AM EDT 50 mcg lactated ringers iv infusion 75 mL/hr, INTRAVENOUS, CONTINUOUS, Starting on Sun05/04/23 at 1000, Until Sun05/04/23 at 1044, Preprocedure New Bag/Syringe/Reji le 05/04/2023 10:00 AM EDT 75 mL/hr 75 mL/hr Arm, Right midazolam (PF) 1-5 mg injection (VERSED) 1-5 mg, INTRAVENOUS, DIRECTED, Starting on Sun05/04/23 at 1030, Until Sun05/04/23 at 1429, DOSING DIRECTED BY PHYSICIAN FOR PROCEDURAL SEDATION ONLY, Intraprocedure Given 05/04/2023 10:26 AM EDT 2 mg Given 05/04/2023 10:21 AM EDT 3 mg FOR RECORDS PERTAINING TO PATIENTS WHO ARE [...] BE BASED ON THE PRIMARY CLINICAL RECORDS. [facility] [facility]. provides no warranty or guarantee of the accuracy or completeness of information in this document.
== END | disposition home or self-care (01) ==
LOC: PSN 06:50
PROVIDERS: PCP Family Medicine; Referring Provider Nurse Practitioner Acute Care; Visit Provider Nurse Practitioner Acute Care
DX: J44.9 Chronic obstructive pulmonary disease, unspecified (principal)
CPT/HCPCS: 94060; 94726; 94729

== ENCOUNTER → 2024-09-23 | Outpatient (CLI) | payer OTHER, SELFPAY ==
[2024-09-23 14:17] VITALS: PULSE 79; PULSE 88; PULSE 90; PULSE 91; PULSE 94; PULSE 95; O2SAT 92; O2SAT 93; O2SAT 94; O2SAT 95
--- NOTE | 2024-09-24 08:52 | WT_ITS ---
PSN 6 Minute Walk Test 6 Minute Walk Test 6 Minute Walk Test: 6 Minute Walk Test PSN:6-Minute Walk Test Start: 09/23/24 14:17 Freq: Status: Active Protocol: RESP.6MINW Document 09/23/24 14:17 [facility] (Rec: 09/23/24 14:21 [facility] [id number]) 6 Minute Walk Test Date Performed 09/23/24 Time Performed 14:00 Height 5 ft 5 in Weight: 246 lb Weight in Pounds 246.[address]: Delisa Foster [employer] Assistive device None used: Pre-test Oxygen Delivery Room Air Method Pulse Ox (%) 95 Pulse Rate (60-100 94 beats/min) Dyspnea Andreea Scale ( 0 0-10) 1st minute Oxygen Delivery Room Air Method Pulse Ox (%) 93 Pulse Rate (60-100 95 beats/min) Dyspnea Andreea Scale ( 0 0-10) Number of Rests 0 Taken 2nd minute Oxygen Delivery Room Air Method Pulse Ox (%) 92 Pulse Rate (60-100 88 beats/min) Dyspnea Andreea Scale ( 1 0-10) Number of Rests 0 Taken 3rd minute Oxygen Delivery Room Air Method Pulse Ox (%) 94 Pulse Rate (60-100 90 beats/min) Dyspnea Andreea Scale ( 2 0-10) Number of Rests 0 Taken 4th minute Oxygen Delivery Room Air Method Pulse Ox (%) 94 Pulse Rate (60-100 91 beats/min) Dyspnea Andreea Scale ( 3 0-10) Number of Rests 0 Taken Reported Symptoms Increased Work of Breathing 5th minute Oxygen Delivery Room Air Method Pulse Ox (%) 93 Pulse Rate (60-100 94 beats/min) Dyspnea Andreea Scale ( 3 0-10) Number of Rests 0 Taken Reported Symptoms Increased Work of Breathing 6th minute Oxygen Delivery Room Air Method Pulse Ox (%) 92 Pulse Rate (60-100 95 beats/min) Dyspnea Andreea Scale ( 3 0-10) Number of Rests 0 Taken Reported Symptoms Increased Work of Breathing Post-test Oxygen Delivery Room Air Method Pulse Ox (%) 94 Pulse Rate (60-100 79 beats/min) Dyspnea Andreea Scale ( 0 0-10) Exertion Andreea Scale 6 (6-20) Full Laps Walked 16 Partial Lap, Number 17 of Tiles Walked Total Distance 961 Walked (ft) Interpretation Interpretation: The patient ambulated 961 feet over the course of 6 minutes beginning on room air without assistive devices. Pretesting oxygen saturation was noted to be 95% on room air. With ambulation, the theo oxygen saturation was 92%. There was no significant exertional oxygen desaturation. Recommendations Recommendations: There is no indication for the use of supplemental oxygen at this time.
== END | disposition home or self-care (01) ==
LOC: PSN 13:57
PROVIDERS: PCP Family Medicine; Referring Provider Nurse Practitioner Acute Care; Visit Provider Nurse Practitioner Acute Care
DX: J44.9 Chronic obstructive pulmonary disease, unspecified (principal)
CPT/HCPCS: 94618

== ENCOUNTER → 2024-10-07 | Outpatient (CLI) | payer OTHER, SELFPAY ==
--- NOTE | 2024-10-07 07:30 | PET_ITS ---
PROCEDURE: PET/CT TUMOR BASE -THIGH INIT 10/07/2024 REASON FOR EXAM: 64 y/o F with SOLITARY PULMONARY NODULE 8.2 mm left upper lobe pulmonary nodule. TECHNIQUE: Following the intravenous administration of radionucleotide, image acquisition on a dedicated PET/CT unit was performed at one hour post injection. A preliminary CT study encompassing the Skull base, neck, chest, abdomen, pelvis, and proximal thighs was performed for purposes of attenuation correction and anatomic localization. The proximal thighs were also included. The patient's blood glucose level was 98 mg/dL (allowable range: 50-180 mg/dL). RADIOPHARMACEUTICAL: 14.00 mCi 18F-FDG (Fluorodeoxyglucose F18) IV was injected into he patient. RADIATION DOSE SUMMARY: Effective Dose: Approximately 7 mSv for a standard whole-body PET scan Organ Doses: Varies by organ, with higher doses typically to the bladder, liver, and brain COMPARISON: COMPARISON FROM CT, PET OR OTHER PERTINENT EXAMS: Low-dose chest CT 04/25/2024.. FINDINGS: Physiologic uptake: There may be expected metabolic uptake within the brain, tongue and floor of the mouth and larynx/vocal cords, heart, lisa (many normal individuals have hilar uptake in less than 3 nodes with mildly avid hilar nodes less than 2.7 SUV), liver and spleen, system, and GI tract and symmetric muscle uptake. FDG AVID AND NON-AVID LESIONS. Reported avid SUV values (g/mL*) are maximum SUV. NECK: There are no significant neck abnormalities. CHEST: Chest wall- There are no significant chest wall abnormalities. Axilla- There are no significant axillary abnormalities. Lung parenchyma- Given differences in technique, probably stable ground-glass opacity of the right upper lobe. No focus of abnormal hypermetabolic activity is seen in either lung. Mediastinum- There are no significant hilar or mediastinal adenopathy. Pleura- There are no significant pleural abnormalities. ABDOMEN: At least mild aortic calcification is seen; no evidence of abdominal aortic aneurysm. Stomach- No significant abnormalities. Liver- No significant abnormalities. Spleen- No significant abnormalities. Pancrease- No significant abnormalities. Kidneys- No significant abnormalities. Bowel- Normal bowel activity. Spine- No significant abnormalities. PELVIS: Bowel- Normal physiologic bowel activity is identified. Masses- There are no pelvic masses. LOWER EXTREMITIES: Bones- With the use of bone window settings, there are no osteolytic or osteoblastic lesions. There are no FDG avid lesions within the visualized portion of the axial skeleton. PET/PET/CT Tumor Base -Thigh Init IMPRESSION: FDG avid- No significant avid lesions. Other: Probably stable appearance of the right upper lobe previously described area of ground-glass opacity. Please note the low-dose CT scan was performed to facilitate PET image reconstr uction and anatomic localization and does not replace a diagnostic CT. Any diagnostic CT requested and performed at the time of the PET will be reported separately. Reading Location: [place] [address]
== END | disposition home or self-care (01) ==
LOC: ONC 07:20
PROVIDERS: PCP Family Medicine; Referring Provider Nurse Practitioner Acute Care; Visit Provider Nurse Practitioner Acute Care
DX: R91.8 Other nonspecific abnormal finding of lung field (principal); R91.1 Solitary pulmonary nodule
CPT/HCPCS: 78815; A9552

== ENCOUNTER 2024-12-09 08:08 | Day surgery (SDC) | payer OTHER, SELFPAY ==
[2024-12-02 10:31] LABS: Hematocrit 43.7 % (37-47); Hemoglobin 15.0 g/dL (12.0-15.0); Immature Granulocytes Count 0.030 X10^3/uL (0.0-0.0); Mean Corp Hgb Conc 34.3 g/dL (32-36); Mean Corpuscular Volume 93.2 fL (81-99); Mean Platelet Vol. 9.4 fl (6.2-12.0); NRBC Flagged by Analyzer 0 % (0-5); Platelet Count 246 K/mm3 (150-450); RBC Distribution Width CV 13.2 % (11.6-14.6); RBC Distribution Width SD 44.8 fl (35.1-43.9); Red Blood Count 4.69 M/mm3 (4.2-5.4); White Blood Count 6.3 K/mm3 (4.4-11.0)
[2024-12-02 10:57] LABS: Anion Gap 10 (5-15); BUN 15 mg/dL (4-19); BUN/Creat Ratio 17.1 RATIO (10-20); Calcium,Total 9.6 mg/dL (7.6-11.0); Carbon Dioxide 26.8 mmol/L (21.0-32.0); Chloride 102 mmol/L (98-108); Glucose 100 mg/dL (70-99); Potassium 4.4 mmol/L (3.3-5.1)
[2024-12-02 11:36] LABS: Prothrombin Time (Protime)PT. 14.9 SECONDS (11.7-14.9)
[2024-12-08 10:33] VITALS: BMI 40.6
--- NOTE | 2024-12-09 10:26 | CL.D_ITS ---
Patient Name: LAUREN MALDONADO Study Date: 12/09/2024 Performing: Lucas Bassett MD Ht: 65 inches 165.1 cm : 1960 Wt: 244.01 lbs 110.68 kg Age: 64 Gender: female BSA: 2.15 PROCEDURE(S) PERFORMED DC01-(20225)LHC/COR/LV CLINICAL PROFILE AND INDICATIONS Indications: Suspected CAD Heart Failure: None Stress/Imaging Date: 61Calcium Score: 2000 CAD Presentations: Symptom unlikely to be ischemic. CONCLUSIONS Likely nonobstructive right coronary artery eccentric calcification. Moderate disease noted in the mid left anterior descending artery. RECOMMENDATIONS Medical therapy Consider pharmacologic myocardial perfusion stress test for assessment of the right coronary artery lesion. DESCRIPTION OF PROCEDURE The patient arrived to the procedure lab. The risks and benefits of the procedure as well as a full description of our services here and current unavailability of surgical backup were fully explained to the patient and/or their significant other prior to the catheterization. The Timeout was completed, verifying the correct patient and procedure. The patient's procedural site was prepped and draped in the usual fashion. Local anesthetic was given subcutaneously to right radial region with Lidocaine 2%. Local anesthetic was given subcutaneously to right groin region with Lidocaine 2%. Using a modified Seldinger technique, arterial access was obtained via the right radial artery, a 6Fr sheath was inserted., arterial access was obtained via the right femoral artery, unable to advance wire. access aborted, pressure applied, arterial access was obtained via the right femoral artery, a 5Fr sheath was inserted. Left Coronary Artery selective angiography was performed in multiple views using a 5 Fr. JL4 catheter. Right Coronary Artery selective angiography was then performed in multiple views using a 5 Fr. 3DRC (Mick) catheter.The arterial sheath was pulled and a TR Band was applied for hemostasis 10cc of air. The arterial sheath was pulled and manual compression applied until hemostasis is achieved. CORONARY ANGIOGRAPHY DOMINANCE: Right Dominant LEFT HEART ASSESSMENT Left Ventricular Ejection Fraction: by Echo 70 % Normal LV wall motion Normal Left Ventricular systolic function LEFT MAIN: Angiographically normal LEFT ANTERIOR DESCENDING ARTERY: Medium size vessel with proximal 50% stenotic lesion. 2 diagonal branches are noted with no significant stenosis present. CIRCUMFLEX ARTERY: Mild luminal irregularities less than 30% RIGHT CORONARY ARTERY: Dominant vessel with eccentric calcification noted in the midsegment for approximately 50% and then moderate diffuse calcification. No high-grade obstruction or stenosis noted. COMPLICATIONS No Complications PROCEDURE MEDICATIONS Versed 1 mg IV Fentanyl 50 mcg IV Versed 1 mg IV Oxygen: 2 L/min via nasal cannula Aspirin (325mg) 1 Tabs PO @ 12/09/2024 08:37:10 Heparin given IA 12/09/2024 09:24:13 Verapamil 2.5mg given IA 12/09/2024 09:30:35 SUMMARY OF HEMODYNAMIC DATA Time AIR REST ECG 08:33:49 Art 94/62 (74) 09:32:13 Art 101/56 (71) 09:35:09 AO 106/65 (80) SA 09:46:04 AIR REST 10:24:52 Signed By Lucas Bassett MD On 12/09/2024 10:25:52 Lucas Bassett MD
== END 2024-12-09 15:20 | disposition home or self-care (01) ==
PROVIDERS: Student in an Organized Health Care Education/Training Program; PCP Family Medicine; Referring Provider Internal Medicine Cardiovascular Disease; Visit Provider Internal Medicine Cardiovascular Disease
DX: I25.10 Atherosclerotic heart disease of native coronary artery without angina pectoris (principal); M06.9 Rheumatoid arthritis, unspecified; J44.9 Chronic obstructive pulmonary disease, unspecified; I48.0 Paroxysmal atrial fibrillation; R93.1 Abnormal findings on diagnostic imaging of heart and coronary circulation; E78.00 Pure hypercholesterolemia, unspecified; K21.9 Gastro-esophageal reflux disease without esophagitis; G47.33 Obstructive sleep apnea (adult) (pediatric); F17.210 Nicotine dependence, cigarettes, uncomplicated; Z79.01 Long term (current) use of anticoagulants; Z79.899 Other long term (current) drug therapy
CPT/HCPCS: 36415; 80048; 85025; 85610; 93454; 99152; 99153; C1894; Q9967; C1769

== ENCOUNTER 2024-12-16 14:58 | Outpatient (CLI) | payer OTHER, SELFPAY ==
--- NOTE | 2024-12-16 14:59 | ADUUE_ITS ---
Reason For Study Reason For Study: Pain in right arm and shoulder post heart cath RIGHT Axillary artery, 65.7 cm/sec. Brachial artety, mid, 0.43 x 0.45 cm, 94.3 cm/sec. Radial artery, mid, 0.20 x 0.20 cm, 86.6 cm/sec. Radial artery, distal, 0.26 x 0.26 cm, 68.5 cm/sec. Ulnar artery, distal, 0.19 x 0.19 cm, 64.6 cm/sec. Axillary V, Brachial V, Radial V, Ulnar V, Cephalic V and Basilic V are compressible. No pseudoaneurysm or occlusion noted. Preliminary report given to ASPEN alcantara. / Art Duplex Unilat UP Extrem Interpretation Summary Right upper extremity vessels patent with no evidence of pseudoaneurysm or fist audrey. Ordering Physician: Florence Lopez Referring Physician: Summer Steele Performed By: Kim Torres RVT
== END 2024-12-16 23:59 | disposition home or self-care (01) ==
LOC: CVS 14:58
PROVIDERS: PCP Family Medicine; Referring Provider Physician Assistant Medical; Visit Provider Physician Assistant Medical
DX: S55.101A Unspecified injury of radial artery at forearm level, right arm, initial encounter (principal)
CPT/HCPCS: 93931

== ENCOUNTER → 2025-01-02 | Outpatient (CLI) | payer OTHER, SELFPAY ==
--- NOTE | 2025-01-02 12:50 | STEWCON_ITS ---
Reason For Study Reason For Study: CAD (RCA Lesion) Stress Results Protocol: Dobutamine Stress Echo With Definity Maximum Predicted HR: 157 bpm Target HR: 133 bpm % Maximum Predicted HR: 85 % DurationHeart Rate Stage (mm:ss) (bpm) BP Comment Baseline 54 130/82No Chest Pain; 3.5 ML Diluted Definity DSE 10 MCG 3:49 59 141/89No Chest Pain DSE 20 MCG 3:00 73 181/91No Chest Pain DSE 30 MCG 3:00 96 184/82No Chest Pain DSE 40 MCG 4:56 134 164/76No Chest Pain; 11:20 Atropine 0.25 MG IVP; 13:30 Atorpine 0.25 MG IVP Recovery 82 148/88No Chest Pain Stress Duration: 14:45 mm:ss Maximum Stress HR: 134 bpm METS: 1 Baseline Echocardiogram Findings Stress Echo Wall motion Data Resting WM Intermediate WM Stress WM ECHO/Stress Test Echo W/Contrast Interpretation Summary Dobutamine stress echocardiogram. Resting echocardiogram demonstrated sinus bradycardia with a rate of 56 bpm and a blood pressure of 130/82 mmHg. Dobutamine infusion was started at 10 mics per KG per minute increasing to a pe ak of 40 mcg/kg/min. Continuous EKG monitoring was performed. The patient maintained sinus rhythm throughout the do butamine infusion with occasional premature atrial complexes. At rest and during peak infusion nonspecific and up sloping ST changes were noted which did not meet the criteria for ischemia. The patient did require 0.5 mg of atropine to attain 134 bpm which was 85% of max impacted heart rate. The rate-pressure product was 21,300. The peak blood press ure was 187/92 mmHg. Stress echocardiogram. The resting echocardiogram was performed with Definity enhancement the resting ejection fraction was 55% with a peak ejection fraction of approximately 70%. No wall motion abnormalities were noted . Conclusion: Dobutamine stress echocardiogram with no evidence of ischemia. No significant arrhythmias noted Ordering Physician: Lucas Bassett Referring Physician: Lucas Bassett Performed By: Elaine Hu, STEPHANIE, RVT
--- OUTSIDE RECORDS SUMMARY | 2025-01-02 14:14 | XMS RPT_ITS | CCD ---
Author Organization [facility] Care Team Providers Care Civil Service Worker Name Role Phone UNASSIGNED, DOCTOR Primary Care Unavailable ABDULLAHI CRISTOBAL Attending Unavailable Dr. Leon Pinto Chi Primary Care Provider [phone] Dr. Leon Pinto Chi Referring Provider Dr. Sanchez Shahid Attending Provider Cristian GARMENT CUTTER, GARMENT CUTTER-C Delisa Attending Provider John CARABALLO, PA Florence Ceja Attending Provider Shamar CARABALLO, PA Jaleel Attending Provider Elaine Evans Attending Provider Unavailable Dr. Leon Pinto Chi Primary Care Provider Dr. Leon Pinto Chi Referring Provider Dr. Leon Pinto Chi Primary Care Provider Dr. Leon Pinto Chi Referring Provider Cristian GARMENT CUTTER, GARMENT CUTTER-C Delisa Referring Provider [phone] Cristian GARMENT CUTTER, GARMENT CUTTER-C Delisa Other Provider Dr. Semaj Joseph Attending Provider [phone] Leon Pinto Chi Primary Care Provider [phone] Leon Pinto Chi Referring Provider Bebo CARABALLO, PA Juan Jose Ceja Attending Provider Dr. Semaj Joseph Referring Provider Blair, Dr. Leon Jacome Primary Care Provider [phone] Vera Sam Attending Provider Unavailable Dr. Leon Pinto Chi Referring Provider Gwen, Dr. Russell Attending Provider Friend, Dr. Russell Other Provider Blair, Dr. Leon Jacome Primary Care Provider Blair, Dr. Leon Jacome Referring Provider Friend, Dr. Russell Attending Provider [phone] Friend, Dr. Russell Other Provider Cristian GARMENT CUTTER, GARMENT CUTTER-C Delisa Attending Provider Blair, Dr. Leon Jacome Primary Care Provider Blair, Dr. Leon Jacome Referring Provider ILYA Lazcano Attending Provider Blair, Dr. Leon Jacome Primary Care Provider Blair, Dr. Leon Jacome Referring Provider Dr. Ventura Figueredo Attending Provider [phone] Blair, Dr. Leon Jacome Primary Care Provider Blair, Dr. Leon Jacome Referring Provider Dee Dee MARTIN, [facility] Primary Care Provider Blair, Dr. Leon Jacome Referring Provider Dr. Semaj Joseph Attending Provider MD Dee Dee [facility] Primary Care Provider SANGEETHA SILVA Attending Unavailable DEE DEE, CHALON [...] Dee Dee MARTIN, Summer Primary Care Provider Lawrence MARTIN, Dr. De La Rosa Attending Provider Lawrence MARTIN, Dr. De La Rosa Referring Provider Dee Dee MARTIN, Summer Referring Provider [phone] Jaleel Cuba Attending Provider Summer Funez MD Attending Provider Kala Canales Attending Provider Kala Canales Referring Provider [phone])[phone] Jake MARTIN, Dr. Cha Attending Provider Jake MARTIN, Dr. Cha Referring Provider Rafael GARMENT CUTTER-C, Heather Attending Provider Rafael GARMENT CUTTER-C, Heather Referring Provider Dee Dee MARTIN, Ohon Primary Care Provider Lawrence MARTIN, Dr. De La Rosa Attending Provider 1([facility] )[phone] Lawrence MARTIN, Dr. De La Rosa Referring Provider 1([facility] )[phone] Dee Dee MARTIN, Chalon Primary Care Provider [phone] Dee Dee MARTIN, Summer Referring Provider [phone] Cristian GARMENT CUTTER-CDelisa Attending Provider Dee Dee MARTIN, Chalon Primary Care Provider Dee Dee MARTIN, Summer Referring Provider [phone] Dee Dee MARTIN, Summer Other Provider Dl MARTIN, Dr. Olson Attending Provider 1([facility])[phone] Dee Dee, Chalon Primary Care Unavailable Cristian GARMENT CUTTER, Delisa Referring Unavailable Cristian GARMENT CUTTER, Delisa Attending Unavailable Dee Dee, Chalon Primary Care Unavailable Rj Bravo Attending Unavailable Florence Lopez Attending Unavailabl e Florence Lopez Referring Unavailabl e Dee Dee, Chalon Primary Care Unavailable Danyelle, Lucas Referring Unavailable Danyelle, Lucas Attending Unavailable Dee Dee, Chalon Primary Care Unavailable Dee Dee, Chalon Primary Care Unavailable Cristopher, Kala Attending Unavailable Cristopher, Kala Referring Unavailable Dee Dee, Chalon Attending Unavailable Dee Dee, Chalon Primary Care Unavailable Dee Dee, Chalon Referring Unavailable Dee Dee, Chalon Primary Care Unavailable Dee Dee, Chalon Referring Unavailable Dee Dee, Chalon Attending Unavailable Dee Dee, Chalon Primary Care Unavailable LawrenceRj Attending Unavailable Isaias Leon Attending Unavailable Dee Dee, Chalon Primary Care Unavailable Kala Nicholas Attending Unavailable Kala Nicholas Referring Unavailable Dee Dee, Chalon Primary Care Unavailable Semaj Joseph Attending Unavailable Semaj Joseph Referring Unavailable Dee Dee, Chalon Primary Care Unavailable Heather Hall Attending Unavailable RafaelHeather Referring Unavailable Dee Dee, Chalon Primary Care Unavailable RafaelHeather Attending Unavailable Rafael, Heather Referring Unavailable Dee Dee, Chalon Primary Care Unavailable Danyelle, Austin Attending Unavailable Danyelle, Austin Referring Unavailable Dee Dee, Chalon Primary Care Unavailable Foster GARMENT CUTTER, Delisa Referring Unavailable Foster GARMENT CUTTER, Delisa Attending Unavailable Dee Dee, Chalon Primary Care Unavailable Jose Antoine Attending Unavailable Dee Dee, Chalon Primary Care Unavailable Foster GARMENT CUTTER, Delisa Referring Unavailable Foster GARMENT CUTTER, Delisa Attending Unavailable Florence Lopez Attending Unavailabl e Florence Lopez Referring Unavailabl e Dee Dee, Chalon Primary Care Unavailable Dee Dee, Chalon Primary Care Unavailable Assessment, Health Risk Attending Unavaila ble Assessment, Health Risk Referring Unavaila ble Dee Dee, Chalon Consulting Unavailable Dee Dee, Chalon Primary Care Unavailable Heather Hall Referring Unavailable RafaelHeather jorge Attending Unavailable DemiterThomasr Consulting Unavailable Danyelle, Austin Attending Unavailable Danyelle, Austin Referring Unavailable Dee Dee, Chalon Primary Care Unavailable Dee Dee, Chalon Primary Care Unavailable Rj Bravo Referring Unavailable Rj Bravo Attending Unavailable Dee Dee, Chalon Primary Care Unavailable Rj Bravo Attending Unavailable Lawrence Rj Referring Unavailable Foster GARMENT CUTTER, Delisa Attending Unavailable Foster GARMENT CUTTER, Delisa Referring Unavailable Dee Dee, Chalon Primary Care Unavailable Isaias Leon Attending Unavailable Dee Dee, Chalon Primary Care Unavailable Foster GARMENT CUTTER, Delisa Consulting Unavailable Foster GARMENT CUTTER, Delisa Referring Unavailable Dee Dee, Chalon Primary Care Unavailable Danyelle, Lucas Attending Unavailable Zachary Gandhi Attending Unavailable Dee Dee, Chalon Primary Care Unavailable Skruck Heather Attending Unavailable Dee Dee, Chalon Primary Care Unavailable Skruck Heatehr Attending Unavailable Dee Dee, Chalon Primary Care Unavailable Dee Dee, Chalon Referring Unavailable Demiter Luc Attending Unavailable Dee Dee, Chalon Primary Care Unavailable Dee Dee, Chalon Primary Care Unavailable Dee Dee, Chalon Referring Unavailable CristopherKobiyn Attending Unavailable Dee Dee, Chalon Primary Care Unavailable Dee Dee, Chalon Referring Unavailable Cristopher, Kala Attending Unavailable Skruck, Heather Attending Unavailable Dee Dee, Chalon Primary Care Unavailable Skruck, Heather Referring Unavailable Lola Rico Attending Unavailable Dee Dee, Chalon Primary Care Unavailable Dee Dee, Chalon Primary Care Unavailable Dee Dee, Chalon Referring Unavailable Heather Hall Attending Unavailable Dee Dee, Chalon Referring Unavailable Dee Dee, Chalon Primary Care Unavailable Foster GARMENT CUTTER, Delisa Attending Unavailable Dee Dee, Chalon Primary Care Unavailable Dee Dee, Chalon Referring Unavailable Dl, Wesley Attending Unavailable Dee Dee, Chalon Primary Care Unavailable Dee Dee, Chalon Referring Unavailable Lucas Bassett Attending Unavailable SkruckHeather Attending Unavailable Dee Dee, Chalon Primary Care Unavailable Dee Dee, Chalon Referring Unavailable Florence Lopez Attending Unavailabl e Dee Dee, Chalon Primary Care Unavailable Dee Dee, Chalon Referring Unavailable Dee Dee, Chalon Primary Care Unavailable Foster GARMENT CUTTER, Delisa Attending Unavailable Dee Dee, Chalon Referring Unavailable Dee Dee, Chalon Primary Care Unavailable Foster GARMENT CUTTER, Delisa Attending Unavailable Skruck, Heather Attending Unavailable Dee Dee, Chalon Primary Care Unavailable Dee Dee, Chalon Primary Care Unavailable Dee Dee, Chalon Referring Unavailable Jaleel Cuba Attending Unavailable Dee Dee, Chalon Primary Care Unavailable Dl, Wesley Attending Unavailable Dl, Wesley Referring Unavailable Florence Lopez Referring Unavailabl e Florence Lopez Attending Unavailabl e Dee Dee, Chalon Primary Care Unavailable Dee Dee, Chalon Primary Care Unavailable Cristopher, Kala Attending Unavailable Cristopher, Kala Referring Unavailable Allergies Allergy Classification Reported Allergen(s) Allergy Type Date of Onset Reaction(s) Facility (20 sources) adalimumab; Translations: [ADALIMUMAB] Drug Allergy 7 Other: See Comments, [facility] (20 sources) Penicillins; Translations: [PENICILLINS] Allergy to substance 8 [facility] (20 sources) traMADol; Translations: [TRAMADOL] Drug Allergy 3 GI Upset [facility] (20 sources) Adhesive agent; Translations: [ADHESIVE] Propensity to adverse reactions 3 Rash [facility] (1 source) adalimumab Drug Allergy 5 [facility] (1 source) traMADol Drug Allergy 5 [facility] Medications Current Medications Medication Drug [...] Cholecalciferol (Vitamin D3) 50,000 unit capsule Discontinued 42078 U PO EVERY WEEK April 29, 2018 12:00am September 01, 2019 2:16pm take 1 capsule by [facility] once daily Cholecalciferol, Vitamin D3, (VITAMIN D) [...] sources) Anticholinergic, Corticosteroid, beta2-Adrenergic Agonist Start: 05-12-2024 Eibbwmmwcmk-Mkfvkumxt-Aa lanter (Trelegy Ellipta) 100-62.5-25 mcg blister with device Active 1 NMA INHALATION DAILY May 12, 2024 2:36pm Start: 05-07-2023 End: 05-12-2024 Tjboeayhain-Kfjpxphyb-Bhclcm er (Trelegy Ellipta) 100-62.5-25 mcg blister with [...] 07, 2023 11:48am Start: 05-11-2022 End: 05-07-2023 Kqerxtvunyd-Jvehdmwpu-Esvyie er (Trelegy Ellipta) 100-62.5-25 mcg blister with device Discontinued 1 NMA INHALATION DAILY May 11, 2022 10:22am May 07, 2023 11:48am Start: 05-11-2022 End: 05-07-2023 Xcnhfhcpmrb-Mjzjelejr-Kuyspe er (Trelegy Ellipta) 100-62.5-25 mcg blister with [...] 11, 2022 10:22am Start: 04-20-2021 End: 05-11-2022 Wzqlxdeamfw-Prygsilik-Ttmxje er (Trelegy Ellipta) 100-62.5-25 mcg blister with device Discontinued 1 NMA INHALATION DAILY 60 April 20, 2021 3:04pm May 11, 2022 10:22am Start: 04-20-2021 End: 05-11-2022 Jbbmytipoda-Eplntupmn-Nuxmxr er (Trelegy Ellipta) 100-62.5-25 mcg blister with device Discontinued 1 INH INHALATION DAILY 60 April 20, 2021 2:04pm May 11, 2022 9:22am Start: 04-20-2021 End: 05-11-2022 Hkjlldroish-Ieadeqztc-Eedgce er (Trelegy Ellipta) 100-62.5-25 mcg blister with [...] 20, 2021 3:04pm Start: 06-02-2020 End: 04-20-2021 Kabdvvndqgz-Ixvszmcri-Riecbz er (Trelegy Ellipta) 100-62.5-25 mcg blister with device Discontinued 1 NMA INHALATION DAILY 60 June 02, 2020 11:18am April 20, 2021 3:04pm Start: 06-02-2020 End: 04-20-2021 Ritriqbfvjb-Hvnpigiyl-Xgvesg er (Trelegy Ellipta) 100-62.5-25 mcg blister with device Discontinued 1 INH INHALATION DAILY 60 June 02, 2020 10:18am April 20, 2021 2:04pm Start: 06-02-2020 End: 04-20-2021 Ytcvmcmpfmg-Cztscwtel-Xloqii er (Trelegy Ellipta) 100-62.5-25 mcg blister with device Discontinued 1 INH INHALATION DAILY 60 June 02, 2020 11:18am April 20, 2021 3:04pm Start: 05-06-2019 End: 06-02-2020 Klppogssmve-Sudtkwdty-Lzknya er (Trelegy Ellipta) 100-62.5-25 mcg blister with device Discontinued 1 NMA INHALATION DAILY 60 May 06, 2019 8:08am June 02, 2020 11:19am Start: 05-06-2019 End: 06-02-2020 Sofrpjebifj-Jalpxdeab-Jojrrf er (Trelegy Ellipta) 100-62.5-25 mcg blister with device Discontinued 1 INH INHALATION DAILY 60 May 06, 2019 7:08am June 02, 2020 10:19am Start: 05-06-2019 End: 06-02-2020 Xwogjtvvdft-Movbymsbu-Xsmpqw er (Trelegy Ellipta) 100-62.5-25 mcg blister with device Discontinued 1 INH INHALATION DAILY 60 May 06, 2019 8:08am June 02, 2020 11:19am Start: 04-29-2018 End: 05-06-2019 Pzfmpmlknad-Dspgyvqhy-Iuccbb er (Trelegy Ellipta) 100-62.5-25 mcg blister with device Discontinued 1 INH INHALATION DAILY 60 April 29, 2018 11:01am May 06, 2019 8:09am Start: 04-29-2018 End: 05-06-2019 Njnthcysyjb-Dqdfmrcsr-Vsdegb er (Trelegy Ellipta) 100-62.5-25 mcg blister with device Discontinued 1 NMA INHALATION DAILY 60 April 29, 2018 12:00am May 06, 2019 8:09am Start: 04-29-2018 End: 05-06-2019 Rytkvllkugl-Ttgeykdaq-Vpjgng er (Trelegy Ellipta) 100-62.5-25 mcg blister with device Discontinued 1 INH INHALATION DAILY 60 April 28, 2018 11:00pm May 06, 2019 7:09am Start: 04-29-2018 End: 05-06-2019 Xiffyuowwng-Yvnkdgrpi-Nibzkp er (Trelegy Ellipta) 100-62.5-25 mcg blister with device Discontinued 1 INH INHALATION DAILY 60 April 29, 2018 12:00am May 06, 2019 8:09am take 1 puff(s) by inhalation once daily csbpyjzdojm-fgqkrjtxj-pqggvikn (TRELEGY ELLIPTA) 100-62.5-25 mcg inhalation powder Inhale [...] tablet (7 sources) Antirheumatic Agent Start: 06-07-19 24 take 1 tablet by mouth once [...] mg disintegrating oral tablet (6 sources) Start: Mecobalamin (Vitamin B12) 5,000 mcg tablet,disintegratin g Active ug PO April 01, 2024 1:00am 24 hr mirabegron 50 mg extended release oral tablet (20 sources) beta3-Adrenergic Agonist Start: take 1 tablet by mouth once daily [...] capsule (20 sources) Proton Pump Inhibitor Start: 017 take 1 capsule by mouth once daily [...] Drug Class(es) Dates Sig (Normalized) Sig (Original) [id number] 200 actuat albuterol 0.09 mg/actuat metered dose [...] 2023 7:12am take 1 tablet by aye every twenty-four hours as needed diphenhydrAMINE HCL [...] Discontinued 4 mg PO per package directions 09 07October 22, 2020 12:00am October 26, 2020 12:00am October 27, 2020 12:01am Start: 07-02-2020 End: 07-02-2020 Depo-Medrol (methylprednisol one acetate) 40 mg/mL suspension for injection Discontinued 40 MG INTRAARTIC ONCE July 02, 2020 8:07am July 02, 2020 [...] PO Q4H as needed for pain 7 December 28, 2020 January 10, 2021 10:23am [...] Discontinued 20 mg PO TWICE A DAY 10 December 29, 2023 1:00am January 02, 2024 1:00am [...] 2016 12:00am April 29, 2018 10:38am Tiotropium Balfour (20 sources) Anticholinergic Start: 02-13-2018 End: 04-29-2018 take 2.5 ug by inhalation once daily Tiotropium Balfour (Spiriva Respimat) 2.5 mcg/actuation mist Discontinued 2 NMA INHALATION daily February 13, 2018 2:50pm April 29, 2018 11:01am administer at approximately the same time(s) each day Start: 02-13-2018 End: 04-29-2018 take 1 puff(s) by inhalation once daily Tiotropium Balfour (Spiriva Respimat) 2.5 mcg/actuation mist Discontinued 2 PUFF INHALATION daily February 13, 2018 1:50pm April 29, 2018 10:01am administer at approximately the same time(s) each day Start: 02-13-2018 End: 04-29-2018 take 1 puff(s) by inhalation once daily Tiotropium Balfour (Spiriva Respimat) 2.5 mcg/actuation mist Discontinued 2 PUFF INHALATION daily February 13, 2018 2:50pm April 29, 2018 11:01am administer at approximately the same time(s) each day Start: 06-29-2017 End: 02-13-2018 take 2.5 ug by inhalation once daily Tiotropium Balfour (Spiriva Respimat) 2.5 mcg/actuation mist Discontinued 2 NMA INHALATION daily June 29, 2017 1:43pm February 13, 2018 2:50pm administer at approximately the same time(s) each day Start: 06-29-2017 End: 02-13-2018 take 1 puff(s) by inhalation once daily Tiotropium Balfour (Spiriva Respimat) 2.5 mcg/actuation mist Discontinued 2 PUFF INHALATION daily June 29, 2017 12:43pm February 13, 2018 1:50pm administer at approximately the same time(s) each day Start: 06-29-2017 End: 02-13-2018 take 1 puff(s) by inhalation once daily Tiotropium Balfour (Spiriva Respimat) 2.5 mcg/actuation mist Discontinued 2 PUFF INHALATION daily June 29, 2017 1:43pm February 13, 2018 2:50pm administer at approximately the same time(s) each day Start: 03-12-2017 End: 06-29-2017 take 1 puff(s) by inhalation once daily Tiotropium Balfour (Spiriva Respimat) 2.5 mcg/actuation mist Discontinued 2 PUFF INHALATION daily March 12, 2017 1:30pm June 29, 2017 1:44pm administer at approximately the same time(s) each day Start: 03-12-2017 End: 06-29-2017 take 2.5 ug by inhalation once daily Tiotropium Balfour (Spiriva Respimat) 2.5 mcg/actuation mist Discontinued 2 NMA INHALATION daily March 12, 2017 1:00am June 29, 2017 1:44pm administer at approximately the same time(s) each day Start: 03-12-2017 End: 06-29-2017 take 1 puff(s) by inhalation once daily Tiotropium Balfour (Spiriva Respimat) 2.5 mcg/actuation mist Discontinued 2 PUFF INHALATION daily March 12, 2017 12:00am June 29, 2017 12:44pm administer at approximately the same time(s) each day Start: 03-12-2017 End: 06-29-2017 take 1 puff(s) by inhalation once daily Tiotropium Balfour (Spiriva Respimat) 2.5 mcg/actuation mist Discontinued 2 [...] Problem Classification Problem Date Documented Date Episodic/Chronic Acute bronchitis (20 sources) Acute bronchitis; Translations: [...] specified as acute or chronic] 01-30-2018 Episodic Disorders of lipid metabolism (20 sources) [...] disorders (20 sources) Depressive disorder; Translations: [Depression] Onset: 5 06-06-2017 Chronic Nausea and vomiting (12 sources) Nausea; Translations: [Nausea] Onset: 4 04-18-2023 Episodic Nonspecific chest pain (3 sources) Other chest pain; Translations: [Chest pain, unspecified] Onset: 5 Episodic Other acquired deformities (6 sources) Spondylolisthesis L5/S1 level; Translations: [Spondylolisthesis, lumbosacral region] 04-01-2024 Episodic Other aftercare (1 source) Encounter for therapeutic drug level monitoring; Translations: [Encounter for therapeutic drug level monitoring] Onset: 5 Episodic Other aftercare (1 source) MCFP (current) use of anticoagulants; Translations: [MCFP (current) use of anticoagulants] Onset: 5 Episodic Other bone disease and musculoskeletal deformities [...] [Bursitis of right shoulder] 06-06-2017 Episodic Other liver diseases (11 sources) Chronic [...] Episodic Other lower respiratory disease (1 source) Solitary pulmonary nodule; Translations: [Solitary pulmonary nodule] Onset: 5 Episodic Other lower respiratory disease (1 source) Other nonspecific abnormal finding of lung field; Translations: [Other nonspecific abnormal finding of lung field] Onset: 5 Episodic Other nervous system disorders [...] mental disorders or infectious disease) (1 source) Abnormal findings on diagnostic imaging of other specified body structures; Translations: [Abnormal findings on diagnostic imaging of other specified body structures] Onset: 5 Chronic Other screening for suspected conditions (not mental disorders or infectious disease) (10 sources) Encounter for screening for malignant neoplasm [...] specified cough; Translations: [Other specified cough] Onset: 01-08-202 5 Viral infection (20 sources) Disease caused by 2019-nCoV; Translations: [COVID-19] Episodic Past or Other Problems Problem Classification Problem Date Documented Da te Episodic/Chronic Abdominal pain (20 sources) Right upper quadrant pain; Translations: [Right upper quadrant pain] Onset: 04-27-2012 04-18-2023 Episodic Biliary tract disease (11 sources) Disorder of gallbladder; Translations: [Other specified diseases of gallbladder] Onset: 12-23-2007 12-23-2007 Episodic Conditions associated with dizziness or vertigo (2 sources) Benign paroxysmal vertigo, unspecified ear; Translations: [Dizziness and giddiness] Onset: 08-06-2024 Episodic Gastroduodenal ulcer (except hemorrhage) (11 sources) Acute gastric ulcer; Translations: [Acute gastric ulcer without hemorrhage or perforation] Onset: 01-01-2008 01-01-2008 Episodic Other disorders of stomach and duodenum (1 source) Gastroparesis; Translations: [Gastroparesis] Onset: 08-26-2024 Episodic Other lower respiratory disease (1 source) Shortness of breath; Translations: [Shortness of breath] Onset: 07-07-2024 Episodic Other upper respiratory infections (20 sources) [...] Comment on above: 06/06/17, R HAND L WI DDLE FINGER Results Test Name Value Interpretation Reference Range Facility MR/BMS.BPon 12-31-2024 MR/BMS.BP Normal [facility] MR/BMS.BPon 12-25-2024 MR/BMS.BP Normal [facility] US Art Duplex Unilat UP Extr emon 12-16-2024 US Art Duplex Unilat UP Extrem Normal [facility] Cardiac Cath Diagnosticon Cardiac Cath Diagnostic Normal [facility] Basic Metabolic Profile (BMP )on 12-02-2024 BUN/CRE 17.1 RATIO Normal 10-20 [facility] Comment on above: Performed By: #### L 100.0100, L300.3900, L500.2500 ####[facility] [address] [place], [address] Calcium [Mass/Vol] 9.6 mg/dL Normal 7.6-11.0 [facility] Comment on above: Performed By: #### L 100.0100, L300.3900, L500.2500 ####[facility] [address] [place], [address] Chloride [Moles/Vol] 102 mmol/L Normal 98-108 [facility] Comment on above: Performed By: #### L 100.0100, L300.3900, L500.2500 ####[facility] [address] [place], [address] CO2 [Moles/Vol] 26.8 mmol/L Normal 21.0-32.0 [facility] Comment on above: Performed By: #### L 100.0100, L300.3900, L500.2500 ####[facility] [address] [place], [address] Creatinine [Mass/Vol] 0.89 mg/dL Normal 0.70-1.20 [facility] Comment on above: Performed By: #### L 100.0100, L300.3900, L500.2500 ####[facility] [address] [place], [address] GAP 10 Normal 5-15 [facility] Comment on above: Performed By: #### L 100.0100, L300.3900, L500.2500 ####[facility] [address] [place], [address] GFR/1.73 sq M.predicted among non-blacks MDRD (S/P/Bld) [Vol rate/Area] 73 mL/min/{1.73_m2} Normal >60 [facility] Comment on above: Result Comment: mL/m in/1.73m2 CKD-EPI Creatinine Equation (2020) Performed By: #### L 100.0100, L300.3900, L500.2500 ####[facility] [address] [place], [address] Glucose [Mass/Vol] 100 mg/dL High 70-99 [facility] Comment on above: Performed By: #### L 100.0100, L300.3900, L500.2500 ####[facility] [address] [place], [address] Potassium [Moles/Vol] 4.4 mmol/L Normal 3.3-5.1 [facility] Comment on above: Performed By: #### L 100.0100, L300.3900, L500.2500 ####[facility] [address] [place], [address] Sodium [Moles/Vol] 138 mmol/L Normal 133-145 [facility] Comment on above: Performed By: #### L 100.0100, L300.3900, L500.2500 ####[facility] [address] [place], [address] Urea nitrogen [Mass/Vol] 15 mg/dL Normal 4-19 [facility] Comment on above: Performed By: #### L 100.0100, L300.3900, L500.2500 ####[facility] [address] [place], [address] CBC W/Diff, Automatedon 10-1 Absolute Lymph 1.59 X10 3/uL Normal 0.83-4.51 [facility] Comment on above: Performed By: #### L 100.0100, L300.3900, L500.2500 ####[facility] [address] [place], [address] Absolute Neut 4.1 X10 3/uL Normal 2.0-7.7 [facility] Comment on above: Performed By: #### L 100.0100, L300.3900, L500.2500 ####[facility] [address] [place], [address] Basophils/100 WBC (Bld) 0.5 % Normal 0-1 [facility] Comment on above: Performed By: #### L 100.0100, L300.3900, L500.2500 ####[facility] [address] [place], [address] Eosinophils/100 WBC (Bld) 0.6 % Normal 0-5 [facility] Comment on above: Performed By: #### L 100.0100, L300.3900, L500.2500 ####[facility] [address] [place], [address] Erythrocyte distribution width (RBC) [Ratio] 13.2 % Normal 11.6-14.6 [facility] Comment on above: Performed By: #### L 100.0100, L300.3900, L500.2500 ####[facility] [address] [place], [address] Hematocrit (Bld) [Volume fraction] 43.7 % Normal 37-47 [facility] Comment on above: Performed By: #### L 100.0100, L300.3900, L500.2500 ####[facility] [address] [place], [address] Hemoglobin (Bld) [Mass/Vol] 15.0 g/dL Normal 12.0-15.0 [facility] Comment on above: Performed By: #### L 100.0100, L300.3900, L500.2500 ####[facility] [address] [place], [address] IG% 0.500 Normal 0.0-0.9 [facility] Comment on above: Result Comment: IG% - Immature Granulocytes (promyelocytes, myelocytes andmetamyelocytes) > 1% indicates that a LEFT SHIFT is Present. Performed By: #### L 100.0100, L300.3900, L500.2500 ####[facility] [address] [place], [address] Lymphocytes/100 WBC (Bld) 25.3 % Normal 19-41 [facility] Comment on above: Performed By: #### L 100.0100, L300.3900, L500.2500 ####[facility] [address] [place], [address] MCH (RBC) [Entitic mass] 32.0 pg Normal 27.0-32.0 [facility] Comment on above: Performed By: #### L 100.0100, L300.3900, L500.2500 ####[facility] [address] [place], [address] MCHC (RBC) [Mass/Vol] 34.3 g/dL Normal 32-36 [facility] Comment on above: Performed By: #### L 100.0100, L300.3900, L500.2500 ####[facility] [address] [place], [address] MCV (RBC) [Entitic vol] 93.2 fL Normal 81-99 [facility] Comment on above: Performed By: #### L 100.0100, L300.3900, L500.2500 ####[facility] [address] [place], [address] Monocytes/100 WBC (Bld) 8.4 % Normal 0-10 [facility] Comment on above: Performed By: #### L 100.0100, L300.3900, L500.2500 ####[facility] [address] [place], [address] Neutrophils/100 WBC (Bld) 64.7 % Normal 47-70 [facility] Comment on above: Performed By: #### L 100.0100, L300.3900, L500.2500 ####[facility] [address] [place], [address] Nucleated RBC (Bld) [#/Vol] 0 10*3/uL Normal 0-5 [facility] Comment on above: Performed By: #### L 100.0100, L300.3900, L500.2500 ####[facility] [address] [place], [address] Platelet mean volume (Bld) [Entitic vol] 9.4 fL Normal 6.2-12.0 [facility] Comment on above: Performed By: #### L 100.0100, L300.3900, L500.2500 ####[facility] [address] [place], [address] Platelets (Bld) [#/Vol] 246 10*3/uL Normal 150-450 [facility] Comment on above: Performed By: #### L 100.0100, L300.3900, L500.2500 ####[facility] [address] [place], [address] RBC (Bld) [#/Vol] 4.69 10*6/uL Normal 4.2-5.4 [facility] Comment on above: Performed By: #### L 100.0100, L300.3900, L500.2500 ####[facility] [address] [place], [address] RDW SD 44.8 fl High 35.1-43.9 [facility] Comment on above: Performed By: #### L 100.0100, L300.3900, L500.2500 ####[facility] [address] [place], [address] WBC (Bld) [#/Vol] 6.3 10*3/uL Normal 4.4-11.0 [facility] Comment on above: Performed By: #### L 100.0100, L300.3900, L500.2500 ####[facility] [address] [place], [address] Cardiology Visit Reporton Cardiology Visit Report Normal [facility] MR/BMS.BPon 12-02-2024 MR/BMS.BP Normal [facility] Prothrombin Time w/INRon INR Coag (PPP) [Relative time] 1.1 {INR} Normal [facility] Comment on above: Performed By: #### L 100.0100, L300.3900, L500.2500 ####[facility] [address] [place], [place], [id number] PT Coag (PPP) [Time] 14.9 s Normal 11.7-14.9 [facility] Comment on above: Performed By: #### L 100.0100, L300.3900, L500.2500 ####[facility] [address] [place], [place], [address] Coronary Angiography CTon Coronary Angiography CT Normal [facility] Limited Chest CT Cardiac Onl yon 11-26-[address] Cardiac Only Normal [facility] MR/BMS.BPon 11-18-2024 MR/BMS.BP Normal [facility] Cardiology Visit Reporton Cardiology Visit Report Normal [facility] MR/BMS.BPon 11-03-2024 MR/BMS.BP Normal [facility] MR/BMS.BPon 10-21-2024 MR/BMS.BP Normal [facility] CBC, Employeeon 10-13-2024 Absolute Lymph 2.05 X10 3/uL Normal 0.83-4.51 [facility] Comment on above: Performed By: #### L 500.2900, L400.0100, L100.0200 ####[facility] [address] [place], [address] Absolute Neut 5.5 X10 3/uL Normal 2.0-7.7 [facility] Comment on above: Performed By: #### L 500.2900, L400.0100, L100.0200 ####[facility] [address] [place], [address] Basophils/100 WBC (Bld) 0.5 % Normal 0-1 [facility] Comment on above: Performed By: #### L 500.2900, L400.0100, L100.0200 ####[facility] [address] [place], [address] Eosinophils/100 WBC (Bld) 0.1 % Normal 0-5 [facility] Comment on above: Performed By: #### L 500.2900, L400.0100, L100.0200 ####[facility] [address] [place], [address] Erythrocyte distribution width (RBC) [Ratio] 13.4 % Normal 11.6-14.6 [facility] Comment on above: Performed By: #### L 500.2900, L400.0100, L100.0200 ####[facility] [address] [place], [address] Hematocrit (Bld) [Volume fraction] 43.3 % Normal 37-47 [facility] Comment on above: Performed By: #### L 500.2900, L400.0100, L100.0200 ####[facility] [address] [place], [address] Hemoglobin (Bld) [Mass/Vol] 15.1 g/dL High 12.0-15.0 [facility] Comment on above: Performed By: #### L 500.2900, L400.0100, L100.0200 ####[facility] [address] [place], [address] Lymphocytes/100 WBC (Bld) 24.5 % Normal 19-41 [facility] Comment on above: Performed By: #### L 500.2900, L400.0100, L100.0200 ####[facility] [address] [place], [address] MCH (RBC) [Entitic mass] 32.4 pg High 27.0-32.0 [facility] Comment on above: Performed By: #### L 500.2900, L400.0100, L100.0200 ####[facility] [address] [place], [address] MCHC (RBC) [Mass/Vol] 34.9 g/dL Normal 32-36 [facility] Comment on above: Performed By: #### L 500.2900, L400.0100, L100.0200 ####[facility] [address] [place], [address] MCV (RBC) [Entitic vol] 92.9 fL Normal 81-99 [facility] Comment on above: Performed By: #### L 500.2900, L400.0100, L100.0200 ####[facility] [address] [place], [address] Monocytes/100 WBC (Bld) 9.4 % Normal 0-10 [facility] Comment on above: Performed By: #### L 500.2900, L400.0100, L100.0200 ####[facility] [address] [place], [address] Neutrophils/100 WBC (Bld) 65.1 % Normal 47-70 [facility] Comment on above: Performed By: #### L 500.2900, L400.0100, L100.0200 ####[facility] [address] [place], [address] NRBC # 0.00 10 3/uL Normal 0-5 [facility] Comment on above: Performed By: #### L 500.2900, L400.0100, L100.0200 ####[facility] [address] [place], [address] Nucleated RBC (Bld) [#/Vol] 0 10*3/uL Normal 0-5 [facility] Comment on above: Performed By: #### L 500.2900, L400.0100, L100.0200 ####[facility] [address] [place], [address] Platelet mean volume (Bld) [Entitic vol] 9.1 fL Normal 6.2-12.0 [facility] Comment on above: Performed By: #### L 500.2900, L400.0100, L100.0200 ####[facility] [address] [place], [address] Platelets (Bld) [#/Vol] 252 10*3/uL Normal 150-450 [facility] Comment on above: Performed By: #### L 500.2900, L400.0100, L100.0200 ####[facility] [address] [place], [address] RBC (Bld) [#/Vol] 4.66 10*6/uL Normal 4.2-5.4 [facility] Comment on above: Performed By: #### L 500.2900, L400.0100, L100.0200 ####[facility] [address] [place], [address] RDW SD 46.2 fl High 35.1-43.9 [facility] Comment on above: Performed By: #### L 500.2900, L400.0100, L100.0200 ####[facility] [address] [place], [address] WBC (Bld) [#/Vol] 8.4 10*3/uL Normal 4.4-11.0 [facility] Comment on above: Performed By: #### L 500.2900, L400.0100, L100.0200 ####[facility] [address] [place], [address] Employee Profileon LDH 209 U/L Normal 84-246 [facility] Comment on above: Performed By: #### L 500.2900, L400.0100, L100.0200 ####[facility] [address] [place], [address] Phosphate [Mass/Vol] 3.9 mg/dL Normal 2.7-4.5 [facility] Comment on above: Performed By: #### L 500.2900, L400.0100, L100.0200 ####[facility] [address] [place], [address] URIC 4.6 mg/dL Normal 2.6-6.0 [facility] Comment on above: Result Comment: The drugs N-Acetylcysteine and Metamizole may falselydepress this assay. Performed By: #### L 500.2900, L400.0100, L100.0200 ####[facility] [address] [place], [address] Pulmonary Visit Reporton Pulmonary Visit Report Normal [facility] Urinalysis, Employeeon 10-13 BILIRUBIN URINE Negative Normal Negative [facility] Comment on above: Order Comment: Urine , Random Performed By: #### L 500.2900, L400.0100, L100.0200 ####[facility] [address] [place], [address] Clarity (U) Clear Normal Clear [facility] Comment on above: Order Comment: Urine , Random Performed By: #### L 500.2900, L400.0100, L100.0200 ####[facility] [address] [place], [address] Color (U) Yellow Normal Yellow [facility] Comment on above: Order Comment: Urine , Random Performed By: #### L 500.2900, L400.0100, L100.0200 ####[facility] [address] [place], [address] GLUCOSE, UR Normal Normal Normal [facility] Comment on above: Order Comment: Urine , Random Performed By: #### L 500.2900, L400.0100, L100.0200 ####[facility] [address] [place], [address] KETONE UR Negative Normal Negative [facility] Comment on above: Order Comment: Urine , Random Performed By: #### L 500.2900, L400.0100, L100.0200 ####[facility] [address] [place], [address] LEUK ESTERASE Negative Normal Negative [facility] Comment on above: Order Comment: Urine , Random Performed By: #### L 500.2900, L400.0100, L100.0200 ####[facility] [address] [place], [address] Nitrite Ql (U) Negative Normal Negative [facility] Comment on above: Order Comment: Urine , Random Performed By: #### L 500.2900, L400.0100, L100.0200 ####[facility] [address] [place], [address] OCCULT BLOOD-UR 10 /ul Abnormal Negative [facility] Comment on above: Order Comment: Urine , Random Performed By: #### L 500.2900, L400.0100, L100.0200 ####[facility] [address] [place], [address] pH UR 6.5 Normal 5.0 - 8.0 [facility] Comment on above: Order Comment: Urine , Random Performed By: #### L 500.2900, L400.0100, L100.0200 ####[facility] [address] [place], [address] PROT DIPSTX 15 mg/dl Abnormal Negative [facility] Comment on above: Order Comment: Urine , Random Performed By: #### L 500.2900, L400.0100, L100.0200 ####[facility] [address] [place], [address] SP.GR. DIPSTX 1.010 Normal 1.002-1.030 [facility] Comment on above: Order Comment: Urine , Random Performed By: #### L 500.2900, L400.0100, L100.0200 ####[facility] [address] [place], [address] UROBILI Normal Normal Normal [facility] Comment on above: Order Comment: Urine , Random Performed By: #### L 500.2900, L400.0100, L100.0200 ####[facility] [address] [place], [address] PET/CT Tumor Base -Thigh Ini ton 10-07-2024 PET/CT Tumor Base -Thigh Init Normal [facility] 6 Minute Walk Teston 025 6 Minute Walk Test Normal [facility] Pulmonary Visit Reporton Pulmonary Visit Report Normal [facility] Echo Completeon 09-11-2024 Echo Complete Normal [facility] 12 Lead EKGon 08-26-2024 12 Lead EKG Normal [facility] Basic Metabolic Profile (BMP )on 08-26-2024 BUN/CRE 16.1 RATIO Normal 10-20 [facility] Comment on above: Performed By: #### L 500.2500, L100.0100 ####[facility] [address] [place], [address] Calcium [Mass/Vol] 9.4 mg/dL Normal 7.6-11.0 [facility] Comment on above: Performed By: #### L 500.2500, L100.0100 ####[facility] [address] [place], [address] Chloride [Moles/Vol] 102 mmol/L Normal 98-108 [facility] Comment on above: Performed By: #### L 500.2500, L100.0100 ####[facility] [address] [place], [address] CO2 [Moles/Vol] 23.0 mmol/L Normal 21.0-32.0 [facility] Comment on above: Performed By: #### L 500.2500, L100.0100 ####[facility] [address] [place], [address] Creatinine [Mass/Vol] 0.86 mg/dL Normal 0.70-1.20 [facility] Comment on above: Performed By: #### L 500.2500, L100.0100 ####[facility] [address] [place], [address] ECRCL 82.14 ml/min Normal 50-250 [facility] Comment on above: Performed By: #### L 500.2500, L100.0100 ####[facility] [address] [place], [address] GAP 11 Normal 5-15 [facility] Comment on above: Performed By: #### L 500.2500, L100.0100 ####[facility] [address] [place], [address] GFR/1.73 sq M.predicted among non-blacks MDRD (S/P/Bld) [Vol rate/Area] 76 mL/min/{1.73_m2} Normal >60 [facility] Comment on above: Result Comment: mL/m in/1.73m2 CKD-EPI Creatinine Equation (2020) Performed By: #### L 500.2500, L100.0100 ####[facility] [address] [place], [address] Glucose [Mass/Vol] 109 mg/dL High 70-99 [facility] Comment on above: Performed By: #### L 500.2500, L100.0100 ####[facility] [address] [place], [address] Potassium [Moles/Vol] 4.0 mmol/L Normal 3.3-5.1 [facility] Comment on above: Performed By: #### L 500.2500, L100.0100 ####[facility] [address] [place], [address] Sodium [Moles/Vol] 137 mmol/L Normal 133-145 [facility] Comment on above: Performed By: #### L 500.2500, L100.0100 ####[facility] [address] [place], [address] Urea nitrogen [Mass/Vol] 14 mg/dL Normal 4-19 [facility] Comment on above: Performed By: #### L 500.2500, L100.0100 ####[facility] [address] [place], [address] CBC W/Diff, Automatedon 07-0 8-2024 Absolute Lymph 2.02 X10 3/uL Normal 0.83-4.51 [facility] Comment on above: Performed By: #### L 500.2500, L100.0100 ####[facility] [address] [place], [address] Absolute Neut 5.0 X10 3/uL Normal 2.0-7.7 [facility] Comment on above: Performed By: #### L 500.2500, L100.0100 ####[facility] [address] [place], [address] Basophils/100 WBC (Bld) 0.3 % Normal 0-1 [facility] Comment on above: Performed By: #### L 500.2500, L100.0100 ####[facility] [address] [place], [address] Eosinophils/100 WBC (Bld) 0.3 % Normal 0-5 [facility] Comment on above: Performed By: #### L 500.2500, L100.0100 ####[facility] [address] [place], [address] Erythrocyte distribution width (RBC) [Ratio] 12.9 % Normal 11.6-14.6 [facility] Comment on above: Performed By: #### L 500.2500, L100.0100 ####[facility] [address] [place], [address] Hematocrit (Bld) [Volume fraction] 44.7 % Normal 37-47 [facility] Comment on above: Performed By: #### L 500.2500, L100.0100 ####[facility] [address] [place], [address] Hemoglobin (Bld) [Mass/Vol] 15.5 g/dL High 12.0-15.0 [facility] Comment on above: Performed By: #### L 500.2500, L100.0100 ####[facility] [address] [place], [address] IG% 0.400 Normal 0.0-0.9 [facility] Comment on above: Result Comment: IG% - Immature Granulocytes (promyelocytes, myelocytes andmetamyelocytes) > 1% indicates that a LEFT SHIFT is Present. Performed By: #### L 500.2500, L100.0100 ####[facility] [address] [place], [address] Lymphocytes/100 WBC (Bld) 26.1 % Normal 19-41 [facility] Comment on above: Performed By: #### L 500.2500, L100.0100 ####[facility] [address] [place], [address] MCH (RBC) [Entitic mass] 31.8 pg Normal 27.0-32.0 [facility] Comment on above: Performed By: #### L 500.2500, L100.0100 ####[facility] [address] [place], [address] MCHC (RBC) [Mass/Vol] 34.7 g/dL Normal 32-36 [facility] Comment on above: Performed By: #### L 500.2500, L100.0100 ####[facility] [address] [place], [address] MCV (RBC) [Entitic vol] 91.8 fL Normal 81-99 [facility] Comment on above: Performed By: #### L 500.2500, L100.0100 ####[facility] [address] [place], [address] Monocytes/100 WBC (Bld) 8.3 % Normal 0-10 [facility] Comment on above: Performed By: #### L 500.2500, L100.0100 ####[facility] [address] [place], [address] Neutrophils/100 WBC (Bld) 64.6 % Normal 47-70 [facility] Comment on above: Performed By: #### L 500.2500, L100.0100 ####[facility] [address] [place], [address] Nucleated RBC (Bld) [#/Vol] 0 10*3/uL Normal 0-5 [facility] Comment on above: Performed By: #### L 500.2500, L100.0100 ####[facility] [address] [place], [address] Platelet mean volume (Bld) [Entitic vol] 9.1 fL Normal 6.2-12.0 [facility] Comment on above: Performed By: #### L 500.2500, L100.0100 ####[facility] [address] [place], [address] Platelets (Bld) [#/Vol] 272 10*3/uL Normal 150-450 [facility] Comment on above: Performed By: #### L 500.2500, L100.0100 ####[facility] [address] [place], [address] RBC (Bld) [#/Vol] 4.87 10*6/uL Normal 4.2-5.4 [facility] Comment on above: Performed By: #### L 500.2500, L100.0100 ####[facility] [address] [place], [address] RDW SD 43.8 fl Normal 35.1-43.9 [facility] Comment on above: Performed By: #### L 500.2500, L100.0100 ####[facility] [address] [place], [address] WBC (Bld) [#/Vol] 7.7 10*3/uL Normal 4.4-11.0 [facility] Comment on above: Performed By: #### L 500.2500, L100.0100 ####[facility] [address] [place], [address] Chest 1 View (Portable)on Chest 1 View (Portable) Normal [facility] Emergency Department Summary on 08-26-2024 Emergency Department Summary Normal [facility] Cardiology Visit Reporton Cardiology Visit Report Normal [facility] CBC W/Diff, Automatedon 05- Absolute Lymph 2.02 X10 3/uL Normal 0.83-4.51 [facility] Comment on above: Order Comment: Order Date: 07/03/24Order Info: 0184-1 - CBCD Performed By: #### L 500.4050, L100.0100 ####[facility] [address] [place], [address] Absolute Neut 3.8 X10 3/uL Normal 2.0-7.7 [facility] Comment on above: Order Comment: Order Date: 07/03/24Order Info: 0184-1 - CBCD Performed By: #### L 500.4050, L100.0100 ####[facility] [address] [place], [address] Basophils/100 WBC (Bld) 0.3 % Normal 0-1 [facility] Comment on above: Order Comment: Order Date: 07/03/24Order Info: 0184-1 - CBCD Performed By: #### L 500.4050, L100.0100 ####[facility] [address] [place], [address] Eosinophils/100 WBC (Bld) 0.9 % Normal 0-5 [facility] Comment on above: Order Comment: Order Date: 07/03/24Order Info: 0184-1 - CBCD Performed By: #### L 500.4050, L100.0100 ####[facility] [address] [place], [address] Erythrocyte distribution width (RBC) [Ratio] 13.0 % Normal 11.6-14.6 [facility] Comment on above: Order Comment: Order Date: 07/03/24Order Info: 0184-1 - CBCD Performed By: #### L 500.4050, L100.0100 ####[facility] [address] [place], [address] Hematocrit (Bld) [Volume fraction] 40.2 % Normal 37-47 [facility] Comment on above: Order Comment: Order Date: 07/03/24Order Info: 0184-1 - CBCD Performed By: #### L 500.4050, L100.0100 ####[facility] [address] [place], [address] Hemoglobin (Bld) [Mass/Vol] 13.5 g/dL Normal 12.0-15.0 [facility] Comment on above: Order Comment: Order Date: 07/03/24Order Info: 0184-1 - CBCD Performed By: #### L 500.4050, L100.0100 ####[facility] [address] [place], [address] IG% 0.300 Normal 0.0-0.9 [facility] Comment on above: Order Comment: Order Date: 07/03/24Order Info: 018- - CBCD Result Comment: IG% - Immature Granulocytes (promyelocytes, myelocytes andmetamyelocytes) > 1% indicates that a LEFT SHIFT is Present. Performed By: #### L 500.4050, L100.0100 ####[facility] [address] [place], [address] Lymphocytes/100 WBC (Bld) 31.3 % Normal 19-41 [facility] Comment on above: Order Comment: Order Date: 07/03/24Order Info: 018- - CBCD Performed By: #### L 500.4050, L100.0100 ####[facility] [address] [place], [address] MCH (RBC) [Entitic mass] 31.8 pg Normal 27.0-32.0 [facility] Comment on above: Order Comment: Order Date: 07/03/24Order Info: 0184-1 - CBCD Performed By: #### L 500.4050, L100.0100 ####[facility] [address] [place], [address] MCHC (RBC) [Mass/Vol] 33.6 g/dL Normal 32-36 [facility] Comment on above: Order Comment: Order Date: 07/03/24Order Info: 0184-1 - CBCD Performed By: #### L 500.4050, L100.0100 ####[facility] [address] [place], [address] MCV (RBC) [Entitic vol] 94.6 fL Normal 81-99 [facility] Comment on above: Order Comment: Order Date: 07/03/24Order Info: 0184-1 - CBCD Performed By: #### L 500.4050, L100.0100 ####[facility] [address] [place], [address] Monocytes/100 WBC (Bld) 8.7 % Normal 0-10 [facility] Comment on above: Order Comment: Order Date: 07/03/24Order Info: 0184-1 - CBCD Performed By: #### L 500.4050, L100.0100 ####[facility] [address] [place], [address] Neutrophils/100 WBC (Bld) 58.5 % Normal 47-70 [facility] Comment on above: Order Comment: Order Date: 07/03/24Order Info: 0184-1 - CBCD Performed By: #### L 500.4050, L100.0100 ####[facility] [address] [place], [address] Nucleated RBC (Bld) [#/Vol] 0 10*3/uL Normal 0-5 [facility] Comment on above: Order Comment: Order Date: 07/03/24Order Info: 0184-1 - CBCD Performed By: #### L 500.4050, L100.0100 ####[facility] [address] [place], [address] Platelet mean volume (Bld) [Entitic vol] 9.5 fL Normal 6.2-12.0 [facility] Comment on above: Order Comment: Order Date: 07/03/24Order Info: 0184-1 - CBCD Performed By: #### L 500.4050, L100.0100 ####[facility] [address] [place], [address] Platelets (Bld) [#/Vol] 254 10*3/uL Normal 150-450 [facility] Comment on above: Order Comment: Order Date: 07/03/24Order Info: 0184-1 - CBCD Performed By: #### L 500.4050, L100.0100 ####[facility] [address] [place], [address] RBC (Bld) [#/Vol] 4.25 10*6/uL Normal 4.2-5.4 [facility] Comment on above: Order Comment: Order Date: 07/03/24Order Info: 0184-1 - CBCD Performed By: #### L 500.4050, L100.0100 ####[facility] [address] [place], [address] RDW SD 45.2 fl High 35.1-43.9 [facility] Comment on above: Order Comment: Order Date: 07/03/24Order Info: 0184-1 - CBCD Performed By: #### L 500.4050, L100.0100 ####[facility] [address] [place], [address] WBC (Bld) [#/Vol] 6.5 10*3/uL Normal 4.4-11.0 [facility] Comment on above: Order Comment: Order Date: 07/03/24Order Info: 0184-1 - CBCD Performed By: #### L 500.4050, L100.0100 ####[facility] [address] [place], [address] Comprehensive Metabolic Prof ilon 07-03-2024 Albumin [Mass/Vol] 4.0 g/dL Normal 3.4-4.8 [facility] Comment on above: Order Comment: Order Date: 07/03/24Order Info: 0786-1 - CMP Performed By: #### L 500.4050, L100.0100 ####[facility] [address] [place], [address] Albumin/Globulin [Mass ratio] 1.8 {ratio} Normal 0.9-2.4 [facility] Comment on above: Order Comment: Order Date: 07/03/24Order Info: 0786-1 - CMP Performed By: #### L 500.4050, L100.0100 ####[facility] [address] [place], [address] ALK PHOS 69 U/L Normal 35-104 [facility] Comment on above: Order Comment: Order Date: 07/03/24Order Info: 0786-1 - CMP Performed By: #### L 500.4050, L100.0100 ####[facility] [address] [place], [address] ALT [Catalytic activity/Vol] 20 U/L Normal <=34 [facility] Comment on above: Order Comment: Order Date: 07/03/24Order Info: 0786-1 - CMP Performed By: #### L 500.4050, L100.0100 ####[facility] [address] [place], [address] AST [Catalytic activity/Vol] 25 U/L Normal <=31 [facility] Comment on above: Order Comment: Order Date: 07/03/24Order Info: 0786-1 - CMP Performed By: #### L 500.4050, L100.0100 ####[facility] [address] [place], [address] Bilirubin [Mass/Vol] 0.25 mg/dL Normal 0.00-1.30 [facility] Comment on above: Order Comment: Order Date: 07/03/24Order Info: 0786-1 - CMP Performed By: #### L 500.4050, L100.0100 ####[facility] [address] [place], [address] BUN/CRE 15.8 RATIO Normal 10-20 [facility] Comment on above: Order Comment: Order Date: 07/03/24Order Info: 0786-1 - CMP Performed By: #### L 500.4050, L100.0100 ####[facility] [address] [place], [address] Calcium [Mass/Vol] 9.3 mg/dL Normal 7.6-11.0 [facility] Comment on above: Order Comment: Order Date: 07/03/24Order Info: 0786-1 - CMP Performed By: #### L 500.4050, L100.0100 ####[facility] [address] [place], [address] Chloride [Moles/Vol] 105 mmol/L Normal 98-108 [facility] Comment on above: Order Comment: Order Date: 07/03/24Order Info: 0786-1 - CMP Performed By: #### L 500.4050, L100.0100 ####[facility] [address] [place], [address] CO2 [Moles/Vol] 24.1 mmol/L Normal 21.0-32.0 [facility] Comment on above: Order Comment: Order Date: 07/03/24Order Info: 0786-1 - CMP Performed By: #### L 500.4050, L100.0100 ####[facility] [address] [place], [address] GAP 10 Normal 5-15 [facility] Comment on above: Order Comment: Order Date: 07/03/24Order Info: 0786-1 - CMP Performed By: #### L 500.4050, L100.0100 ####[facility] [address] [place], [address] GFR/1.73 sq M.predicted among non-blacks MDRD (S/P/Bld) [Vol rate/Area] 82 mL/min/{1.73_m2} Normal >60 [facility] Comment on above: Order Comment: Order Date: 07/03/24Order Info: 0786-1 - CMP Result Comment: mL/m in/1.73m2 CKD-EPI Creatinine Equation (2020) Performed By: #### L 500.4050, L100.0100 ####[facility] [address] [place], [address] Globulin (S) [Mass/Vol] 2.2 g/dL Normal 2.2-4.2 [facility] Comment on above: Order Comment: Order Date: 07/03/24Order Info: 0786-1 - CMP Performed By: #### L 500.4050, L100.0100 ####[facility] [address] [place], [address] Potassium [Moles/Vol] 3.7 mmol/L Normal 3.3-5.1 [facility] Comment on above: Order Comment: Order Date: 07/03/24Order Info: 0786-1 - CMP Performed By: #### L 500.4050, L100.0100 ####[facility] [address] [place], [address] Sodium [Moles/Vol] 139 mmol/L Normal 133-145 [facility] Comment on above: Order Comment: Order Date: 07/03/24Order Info: 0786-1 - CMP Performed By: #### L 500.4050, L100.0100 ####[facility] [address] [place], [address] T PROT 6.2 g/dL Normal 5.9-8.4 [facility] Comment on above: Order Comment: Order Date: 07/03/24Order Info: 0786-1 - CMP Performed By: #### L 500.4050, L100.0100 ####[facility] [address] [place], [address] Creatinine [Mass/Vol] 0.81 mg/dL Normal 0.70-1.20 [facility] Comment on above: Order Comment: Order Date: 07/03/24Order Info: 0786-1 - CMP Performed By: #### L 500.4050, L100.0100 ####[facility] [address] [place], [address] Glucose [Mass/Vol] 96 mg/dL Normal 70-99 [facility] Comment on above: Order Comment: Order Date: 07/03/24Order Info: 0786-1 - CMP Performed By: #### L 500.4050, L100.0100 ####[facility] [address] [place], [address] Urea nitrogen [Mass/Vol] 13 mg/dL Normal 4-19 [facility] Comment on above: Order Comment: Order Date: 07/03/24Order Info: 0786-1 - CMP Performed By: #### L 500.4050, L100.0100 ####[facility] [address] [place], [address] L501.4021on 07-03-2024 Trop T High Sen 11 ng/L Normal <=14 [facility] Comment on above: Order Comment: Order Date: 07/03/24Order Info: 0786-1 - CMP Performed By: #### L 501.4021, L503.7505 ####[facility] [address] [place], [address] L503.7505on 07-03-2024 Natriuretic peptide B (Bld) [Mass/Vol] 229 pg/mL Normal <=900 [facility] Comment on above: Order Comment: Order Date: 07/03/24Order Info: 0786-1 - CMP Result Comment: Hear t Failure Unlikely: < 300 pg/mLHeart Failure Likely< 50 Years: > 450 pg/mL50-75 Years: > 900 pg/mL>75 Years: > 1800 pg/mL Performed By: #### L 501.4021, L503.7505 ####[facility] [address] [place], [place], [id number] [facility].on 05-[facility] COM[facility] Normal . [facility] Comment on above: Order Comment: 41003 9ELF Result Comment: Test Ordered: 026647 Enhanced Liver Fibrosis (ELF)ELF(TM) Score 9.02 Reference Range: <9.80ELF(TM) Score Interpretation:Risk cut-offs to assess the likelihood of progressionto cirrhosis and liver-related clinical events within3.9 years following baseline ELF score (IQR: 14.0-22.4months)*: Lower risk < 9.80 Mid risk 9.80 - 11.29 Higher risk >11.29Note: The ELF(TM) Score is a unitless numerical value.*Deyvi SA, Zurdo LANDON, Travis T, et al. Selonsertibfor patients with bridging fibrosis or compensatedcirrhosis due to SAEZ: Results from randomized phaseIII STELLAR trials. J Hepatol. 2020 Aug;73(1):26-39.Performed at: [address] [id number] Director: Jade Garcia MD, Phone: [phone] at: [address] [id number] Director: Doc Rizzo PhD, Phone: [phone] Performed By: #### L 3410.9998, V359.3356 ####[facility] [address] [place], [address] Gastroenterology Visit Repor ton 05-29-2024 Gastroenterology Visit Report Normal [facility] TSH DL <= 0.005 mIU/L QnOrde red By: Heather Hall on 05-27-2024 Thyroid Stimulating Hormone (TSH) 3.270 uIU/mL 0.300-4.200 [facility] Thyroid Stim Hormone (TSH)on 05-27-2024 TSH 3.270 uIU/mL Normal 0.300-4.200 [facility] Comment on above: Order Comment: ENMANUEL E FAX RESULTS TO SHAMIKA HALL AND DR. FUNEZ Performed By: #### L 3410.9998, L501.9520 ####[facility] [address] [place], [address] Orthopedic Visit Reporton [facility] 025 PT D/C Summary (1) Normal [facility] Pulmonary Visit Reporton Pulmonary Visit Report Normal [facility] Magnetic resonance imaging r eportOrdered By: Geronimo Bartlett on 05-14-[address] [facility] Imaging Services [address] [place] [address] Spine Lumbar (Routine) MR#: [id number] Acct: [id number] Name: MONICA MALDONADO Rep #: [id number] : 1960 F 64 From: Rubia Bartlett MD PCP: Dr. Summer Funez MD Status: REG CL I Study:Spine Lumbar (Routine) Date of Exam: 05/12/24 Exam# [id number] Ordering Dr: Wilver Nicholas PA EXAM: MRI lumbar spine without contrast. CLINICAL [...] ILYA Antunez; Dr. Summer Funez MD ~ [place] Attendant: Signed [facility] Spine Lumbar (Routine)on Spine Lumbar (Routine) Normal [facility] L3410.9998on 05-02-2024 [facility] COMMENT Normal . [facility] Comment on above: Order Comment: 02629 9ELF RED POUR OFF RF Result Comment: Test Ordered: 712456 Enhanced Liver Fibrosis (ELF)ELF(TM) Score 8.71 BN Reference Range: <9.80ELF(TM) Score Interpretation:Risk cut-offs to assess the likelihood of progressionto cirrhosis and liver-related clinical events within3.9 years following baseline ELF score (IQR: 14.0-22.4months)*: Lower risk < 9.80 Mid risk 9.80 - 11.29 Higher risk >11.29Note: The ELF(TM) Score is a unitless numerical value.*Deyvi SA, Zurdo VW, Travis T, et al. Selonsertibfor patients with bridging fibrosis or compensatedcirrhosis due to SAEZ: Results from randomized phaseIII STELLAR trials. J Hepatol. 2020 Aug;73(1):26-39.Performed at: [facility] [employer] [id number] Director: Jade Garcia MD, Phone: [phone] at: [address] [id number] Director: Doc Rizzo PhD, Phone: [phone] Performed By: #### L 3100.0460, L100.0100, L3890.6102, L500.4050, L3890.6301, L3890.6202, L3100.0300, L3410.9998 ####[facility] [address] [place], [place], [id number] Abdomen Limitedon 05-01-2024 Abdomen Limited Normal [facility] Hepatitis A AB, Totalon 04-19 HEPATITIS A,TOT Negative Normal Negative [facility] Comment on above: Result Comment: Comm ent: The HAV total antibody assay detects both IgG andIgM but does not differentiate between them. A negativeresult suggests susceptibility to infection. A positiveresult could be due to vaccination, previously resolvedinfection or active infection. Testing for HAV IgM shouldbe performed if active HAV infection is suspected. Labcorpoffers profiles that will automatically reflex positive HAVtotal antibody results to IgM (e.g., panel #[id number] HAVAntibody w/ Rfx).Performed at: [facility] [address] [id number] Director: Doc Rizzo PhD, Phone: [phone] Performed By: #### L 3100.0460, L100.0100, L3890.6102, L500.4050, L3890.6301, L3890.6202, L3100.0300, L3410.9998 ####[facility] [address] [place], [address] Hepatitis B Core Ab Totalon 04-29-2024 HEP B CORE,TOT Negative Normal Negative [facility] Comment on above: Performed By: #### L 3100.0460, L100.0100, L3890.6102, L500.4050, L3890.6301, L3890.6202, L3100.0300, L3410.9998 ####[facility] [address] [place], [address] Absolute neutrophil countOrd ered By: Heather Hall on 04-28-2024 Neutrophils (Bld) [#/Vol] 4.0 10*3/uL 2.0-7.7 [facility] Anion gap in Serum or Plasma Ordered By: Heather Hall on 04-28-2024 Anion gap [Moles/Vol] 12 mmol/L 5- [facility] BUN/creatinine ratioOrdered By: Heather Hall on 04-28-2024 Urea nitrogen/Creatinine [Mass ratio] 22.4 mg/mg High 10- [facility] Basophil percentageOrdered B y: Heather Hall on 04-28-2024 Basophils/100 WBC (Bld) 0.3 % 0-1 [facility] Bilirubin, totalOrdered By: Heatehr Hall on 04-28-2024 Bilirubin [Mass/Vol] 0.23 mg/dL 0.00-1.30 [facility] CBC W/Diff, Automatedon 04-19 Absolute Lymph 2.20 X10 3/uL Normal 0.83-4.51 [facility] Comment on above: Performed By: #### L 3100.0460, L100.0100, L3890.6102, L500.4050, L3890.6301, L3890.6202, L3100.0300, L3410.9998 ####[facility] [address] [place], [address] Absolute Neut 4.0 X10 3/uL Normal 2.0-7.7 [facility] Comment on above: Performed By: #### L 3100.0460, L100.0100, L3890.6102, L500.4050, L3890.6301, L3890.6202, L3100.0300, L3410.9998 ####[facility] [address] [place], [address] Basophils/100 WBC (Bld) 0.3 % Normal 0-1 [facility] Comment on above: Performed By: #### L 3100.0460, L100.0100, L3890.6102, L500.4050, L3890.6301, L3890.6202, L3100.0300, L3410.9998 ####[facility] [address] [place], [address](747) Eosinophils/100 WBC (Bld) 0.4 % Normal 0-5 [facility] Comment on above: Performed By: #### L 3100.0460, L100.0100, L3890.6102, L500.4050, L3890.6301, L3890.6202, L3100.0300, L3410.9998 ####[facility] [address] [place], [address] Erythrocyte distribution width (RBC) [Ratio] 12.8 % Normal 11.6-14.6 [facility] Comment on above: Performed By: #### L 3100.0460, L100.0100, L3890.6102, L500.4050, L3890.6301, L3890.6202, L3100.0300, L3410.9998 ####[facility] [address] [place], [address] Hematocrit (Bld) [Volume fraction] 39.9 % Normal 37-47 [facility] Comment on above: Performed By: #### L 3100.0460, L100.0100, L3890.6102, L500.4050, L3890.6301, L3890.6202, L3100.0300, L3410.9998 ####[facility] [address] [place], [address] Hemoglobin (Bld) [Mass/Vol] 13.8 g/dL Normal 12.0-15.0 [facility] Comment on above: Performed By: #### L 3100.0460, L100.0100, L3890.6102, L500.4050, L3890.6301, L3890.6202, L3100.0300, L3410.9998 ####[facility] [address] [place], [address] IG% 0.300 Normal 0.0-0.9 [facility] Comment on above: Result Comment: IG% - Immature Granulocytes (promyelocytes, myelocytes andmetamyelocytes) > 1% indicates that a LEFT SHIFT is Present. Performed By: #### L 3100.0460, L100.0100, L3890.6102, L500.4050, L3890.6301, L3890.6202, L3100.0300, L3410.9998 ####[facility] [address] [place], [address] Lymphocytes/100 WBC (Bld) 32.2 % Normal 19-41 [facility] Comment on above: Performed By: #### L 3100.0460, L100.0100, L3890.6102, L500.4050, L3890.6301, L3890.6202, L3100.0300, L3410.9998 ####[facility] [address] [place], [address] MCH (RBC) [Entitic mass] 32.2 pg High 27.0-32.0 [facility] Comment on above: Performed By: #### L 3100.0460, L100.0100, L3890.6102, L500.4050, L3890.6301, L3890.6202, L3100.0300, L3410.9998 ####[facility] [address] [place], [address] MCHC (RBC) [Mass/Vol] 34.6 g/dL Normal 32-36 [facility] Comment on above: Performed By: #### L 3100.0460, L100.0100, L3890.6102, L500.4050, L3890.6301, L3890.6202, L3100.0300, L3410.9998 ####[facility] [address] [place], [address] MCV (RBC) [Entitic vol] 93.2 fL Normal 81-99 [facility] Comment on above: Performed By: #### L 3100.0460, L100.0100, L3890.6102, L500.4050, L3890.6301, L3890.6202, L3100.0300, L3410.9998 ####[facility] [address] [place], [address] Monocytes/100 WBC (Bld) 7.6 % Normal 0-10 [facility] Comment on above: Performed By: #### L 3100.0460, L100.0100, L3890.6102, L500.4050, L3890.6301, L3890.6202, L3100.0300, L3410.9998 ####[facility] [address] [place], [address] Neutrophils/100 WBC (Bld) 59.2 % Normal 47-70 [facility] Comment on above: Performed By: #### L 3100.0460, L100.0100, L3890.6102, L500.4050, L3890.6301, L3890.6202, L3100.0300, L3410.9998 ####[facility] [address] [place], [address] Nucleated RBC (Bld) [#/Vol] 0 10*3/uL Normal 0-5 [facility] Comment on above: Performed By: #### L 3100.0460, L100.0100, L3890.6102, L500.4050, L3890.6301, L3890.6202, L3100.0300, L3410.9998 ####[facility] [address] [place], [address] Platelet mean volume (Bld) [Entitic vol] 8.3 fL Normal 6.2-12.0 [facility] Comment on above: Performed By: #### L 3100.0460, L100.0100, L3890.6102, L500.4050, L3890.6301, L3890.6202, L3100.0300, L3410.9998 ####[facility] [address] [place], [address] Platelets (Bld) [#/Vol] 241 10*3/uL Normal 150-450 [facility] Comment on above: Performed By: #### L 3100.0460, L100.0100, L3890.6102, L500.4050, L3890.6301, L3890.6202, L3100.0300, L3410.9998 ####[facility] [address] [place], [address] RBC (Bld) [#/Vol] 4.28 10*6/uL Normal 4.2-5.4 [facility] Comment on above: Performed By: #### L 3100.0460, L100.0100, L3890.6102, L500.4050, L3890.6301, L3890.6202, L3100.0300, L3410.9998 ####[facility] [address] [place], [address] RDW SD 44.0 fl High 35.1-43.9 [facility] Comment on above: Performed By: #### L 3100.0460, L100.0100, L3890.6102, L500.4050, L3890.6301, L3890.6202, L3100.0300, L3410.9998 ####[facility] [address] [place], [address] WBC (Bld) [#/Vol] 6.8 10*3/uL Normal 4.4-11.0 [facility] Comment on above: Performed By: #### L 3100.0460, L100.0100, L3890.6102, L500.4050, L3890.6301, L3890.6202, L3100.0300, L3410.9998 ####[facility] [address] [place], [place], [id number](434) Carbon dioxide, total [Moles /volume] in Central venous bloodOrdered By: Heather Hall on 04-28-2024 CO2 [Moles/Vol] 24.2 mmol/L 21.0-32.0 [facility] Chloride assayOrdered By: Kip Hall on 04-28-2024 Chloride [Moles/Vol] 99 mmol/L 98-108 [facility] Comprehensive Metabolic Prof ilon 04-28-2024 Albumin [Mass/Vol] 4.2 g/dL Normal 3.4-4.8 [facility] Comment on above: Performed By: #### L 3100.0460, L100.0100, L3890.6102, L500.4050, L3890.6301, L3890.6202, L3100.0300, L3410.9998 ####[facility] [address] [place], [address] Albumin/Globulin [Mass ratio] 2.0 {ratio} Normal 0.9-2.4 [facility] Comment on above: Performed By: #### L 3100.0460, L100.0100, L3890.6102, L500.4050, L3890.6301, L3890.6202, L3100.0300, L3410.9998 ####[facility] [address] [place], [address] ALK PHOS 63 U/L Normal 35-104 [facility] Comment on above: Performed By: #### L 3100.0460, L100.0100, L3890.6102, L500.4050, L3890.6301, L3890.6202, L3100.0300, L3410.9998 ####[facility] [address] [place], [address] ALT [Catalytic activity/Vol] 16 U/L Normal <=34 [facility] Comment on above: Performed By: #### L 3100.0460, L100.0100, L3890.6102, L500.4050, L3890.6301, L3890.6202, L3100.0300, L3410.9998 ####[facility] [address] [place], [address] AST [Catalytic activity/Vol] 19 U/L Normal <=31 [facility] Comment on above: Performed By: #### L 3100.0460, L100.0100, L3890.6102, L500.4050, L3890.6301, L3890.6202, L3100.0300, L3410.9998 ####[facility] [address] [place], [place], [id number] Bilirubin [Mass/Vol] 0.23 mg/dL Normal 0.00-1.30 [facility] Comment on above: Performed By: #### L 3100.0460, L100.0100, L3890.6102, L500.4050, L3890.6301, L3890.6202, L3100.0300, L3410.9998 ####[facility] [address] [place], [address] BUN/CRE 22.4 RATIO High 10-20 [facility] Comment on above: Performed By: #### L 3100.0460, L100.0100, L3890.6102, L500.4050, L3890.6301, L3890.6202, L3100.0300, L3410.9998 ####[facility] [address] [place], [address] Calcium [Mass/Vol] 9.3 mg/dL Normal 7.6-11.0 [facility] Comment on above: Performed By: #### L 3100.0460, L100.0100, L3890.6102, L500.4050, L3890.6301, L3890.6202, L3100.0300, L3410.9998 ####[facility] [address] [place], [address] Chloride [Moles/Vol] 99 mmol/L Normal 98-108 [facility] Comment on above: Performed By: #### L 3100.0460, L100.0100, L3890.6102, L500.4050, L3890.6301, L3890.6202, L3100.0300, L3410.9998 ####[facility] [address] [place], [address] CO2 [Moles/Vol] 24.2 mmol/L Normal 21.0-32.0 [facility] Comment on above: Performed By: #### L 3100.0460, L100.0100, L3890.6102, L500.4050, L3890.6301, L3890.6202, L3100.0300, L3410.9998 ####[facility] [address] [place], [address] Creatinine [Mass/Vol] 0.91 mg/dL Normal 0.70-1.20 [facility] Comment on above: Performed By: #### L 3100.0460, L100.0100, L3890.6102, L500.4050, L3890.6301, L3890.6202, L3100.0300, L3410.9998 ####[facility] [address] [place], [address] GAP 12 Normal 5-15 [facility] Comment on above: Performed By: #### L 3100.0460, L100.0100, L3890.6102, L500.4050, L3890.6301, L3890.6202, L3100.0300, L3410.9998 ####[facility] [address] [place], [address] GFR/1.73 sq M.predicted among non-blacks MDRD (S/P/Bld) [Vol rate/Area] 71 mL/min/{1.73_m2} Normal >60 [facility] Comment on above: Result Comment: mL/m in/1.73m2 CKD-EPI Creatinine Equation (2020) Performed By: #### L 3100.0460, L100.0100, L3890.6102, L500.4050, L3890.6301, L3890.6202, L3100.0300, L3410.9998 ####[facility] [address] [place], [address] Globulin (S) [Mass/Vol] 2.0 g/dL Low 2.2-4.2 [facility] Comment on above: Performed By: #### L 3100.0460, L100.0100, L3890.6102, L500.4050, L3890.6301, L3890.6202, L3100.0300, L3410.9998 ####[facility] [address] [place], [address] Glucose [Mass/Vol] 99 mg/dL Normal 70-99 [facility] Comment on above: Performed By: #### L 3100.0460, L100.0100, L3890.6102, L500.4050, L3890.6301, L3890.6202, L3100.0300, L3410.9998 ####[facility] [address] [place], [address] Potassium [Moles/Vol] 4.3 mmol/L Normal 3.3-5.1 [facility] Comment on above: Performed By: #### L 3100.0460, L100.0100, L3890.6102, L500.4050, L3890.6301, L3890.6202, L3100.0300, L3410.9998 ####[facility] [address] [place], [address] Sodium [Moles/Vol] 135 mmol/L Normal 133-145 [facility] Comment on above: Performed By: #### L 3100.0460, L100.0100, L3890.6102, L500.4050, L3890.6301, L3890.6202, L3100.0300, L3410.9998 ####[facility] [address] [place], [address] T PROT 6.2 g/dL Normal 5.9-8.4 [facility] Comment on above: Performed By: #### L 3100.0460, L100.0100, L3890.6102, L500.4050, L3890.6301, L3890.6202, L3100.0300, L3410.9998 ####[facility] [address] [place], [address] Urea nitrogen [Mass/Vol] 20 mg/dL High 4-19 [facility] Comment on above: Performed By: #### L 3100.0460, L100.0100, L3890.6102, L500.4050, L3890.6301, L3890.6202, L3100.0300, L3410.9998 ####[facility] [address] [place], [address] Eosinophil percentageOrdered By: Heather Hall on 04-28-2024 Eosinophils/100 WBC (Bld) 0.4 % 0-5 [facility] Erythrocyte distribution wid th ratioOrdered By: Heather Hall on 04-28-2024 Erythrocyte distribution width (RBC) [Ratio] 12.8 % 11.6-14.6 [facility] Erythrocyte distribution wid th standard deviationOrdered By: Heather Hall on 04-28-2024 Erythrocyte distribution width (RBC) [Entitic vol] 44.0 fL High 35.1-43.9 [facility] GFR/1.73 sq M.predicted allyssa g non-blacks MDRD (S/P/Bld) [Vol rate/Area]Ordered By: Heather Hall on 04-28-2024 Estimated GFR (MDRD) Non-Af Amer 71 >60 [facility] Comment on above: mL/min/1.73m2 CKD-EP I Creatinine Equation (2020) Gastroenterology Visit Repor ton 04-28-2024 Gastroenterology Visit Report Normal [facility] HBV core Ab Ql (S)Ordered By : Heather Hall on 04-28-2024 Hepatitis B Core Total Antibody Negative Negative [facility] HBV surface Ab Ql (S)Ordered By: Heather Hall on 04-28-2024 Hepatitis B Surface Antibody Non-Reactive [facility] Comment on above: <8.5 mIU/mL: Non-Nguyen ctive8.5<= x <11.5 mIU/mL: Indeterminate>=11.5 mIU/mL: Reactive Non Reactive: Inconsistent with immunity less than <10 mIU/mL Reactive: Consistent with immunity greater than or equal to 10 mIU/mL HBV surface Ag Ql (S)Ordered By: Heather Hall on 04-28-2024 Hepatitis B Surface Antigen Non-Reactive Nonreactive [facility] Comment on above: Reactive: Presumptiv e evidence of HBV. Repeatedly reactive samples must be confirmed using a neutralization test ([employer] HBsAg Confirmatory Test)Non-Reactive: HBsAg not detected; does not exclude the possibility of exposure to HBV Hematocrit Auto (Bld) [Volum e fraction]Ordered By: Heather Hall on 04-28-2024 Hematocrit (Bld) [Volume fraction] 39.9 % 37-47 [facility] Hemoglobin measurementOrdere d By: Heather Hall on 04-28-2024 Hemoglobin (Bld) [Mass/Vol] 13.8 g/dL 12.0-15.0 [facility] Hepatitis A virus total anti body assayOrdered By: Heather Hall on 04-28-2024 Hepatitis A Antibody Total Negative Negative [facility] Comment on above: Comment: The HAV [...] HAVtotal antibody results to IgM (e.g., panel #[id number] HAVAntibody w/ Rfx).Performed at: [facility] [address] [id number] Director: Doc Rizzo PhD, Phone: [phone] Hepatitis C antibodyOrdered By: Heather Hall on 04-28-2024 Hepatitis C Antibody Non-Reactive Nonreactive [facility] Comment on above: Reactive: Presumptiv e evidence of antibodies to HCV. Follow CDC recommendations for supplemental testing.Non-Reactive: Antibodies to HCV were not detected; does not exclude the possibility of exposure to HCVReactive Results are presumptive evidence of antibodies to HCV. Follow CDC recommendations for supplemental testing.Order confirmation testing: HCV Quant by PCR testing - HCVPCR #[id number] Non Reactive: < 0.8 Equivocal: >/= 0.8 to < 1.0 Reactive: >/= 1.0The CDC requires that a reactive/equivocal HCV antibody result be sent out for confirmation. HCV Quant by PCR testing. Immature granulocytes/100 WB C Auto (Bld)Ordered By: Heather Hall on 04-28-2024 Immature granulocytes/100 WBC (Bld) 0.300 % 0.0-0.9 [facility] Comment on above: IG% - Immature Granu locytes (promyelocytes, myelocytes and metamyelocytes) > 1% indicates that a LEFT SHIFT is Present. L3890.6102on 04-28-2024 HEP B Surf Ag Non-Reactive Normal Nonreactive [facility] Comment on above: Result Comment: Reac tive: Presumptive evidence of HBV. Repeatedly reactivesamples must be confirmed using a neutralization test([employer] HBsAg Confirmatory Test)Non-Reactive: HBsAg not detected; does not exclude thepossibility of exposure to HBV Performed By: #### L 3100.0460, L100.0100, L3890.6102, L500.4050, L3890.6301, L3890.6202, L3100.0300, L3410.9998 ####[facility] [id number] [place], [address] L3890.6202on 04-28-2024 HEP B Surf Ab Non-Reactive Normal [facility] Comment on above: Result Comment: <8.5 mIU/mL: Non-Reactive8.5<= x <11.5 mIU/mL: Indeterminate>=11.5 mIU/mL: Reactive Non Reactive: Inconsistent with immunity less than <10 mIU/mL Reactive: Consistent with immunity greater than or equal to 10 mIU/mL Performed By: #### L 3100.0460, L100.0100, L3890.6102, L500.4050, L3890.6301, L3890.6202, L3100.0300, L3410.9998 ####[facility] [address] [facility]. [place], [place], [id number] L3890.6301on 04-28-2024 Hepatitis C Ab Non-Reactive Normal Nonreactive [facility] Comment on above: Result Comment: Reac tive: Presumptive evidence of antibodies to HCV. [facility] for supplemental testing.Non-Reactive: Antibodies to HCV were not detected; does notexclude the possibility of exposure to HCVReactive Results are presumptive evidence of antibodies toHCV. Follow CDC recommendations for supplemental testing.Order confirmation testing: HCV Quant by PCR testing -HCVPCR #[id number] Non Reactive: < 0.8 Equivocal: >/= 0.8 to < 1.0 Reactive: >/= 1.0The CDC requires that a reactive/equivocal HCV antibodyresult be sent out for confirmation. HCV Quant by PCRtesting. Performed By: #### L 3100.0460, L100.0100, L3890.6102, L500.4050, L3890.6301, L3890.6202, L3100.0300, L3410.9998 ####[facility] [address] [place], [address] Laboratory - Chemistry and C hemistry - challengeOrdered By: Heather Hall on 04-28-2024 AST [Catalytic activity/Vol] 19 U/L <32 [facility] Lymphocytes Auto (Unsp spec) [#/Vol]Ordered By: Heather Hall on 04-28-2024 Lymphocytes (Bld) [#/Vol] 2.20 10*3/uL 0.83-4.51 [facility] Lymphocytes/100 WBC Auto (Un sp spec)Ordered By: Heather Hall on 04-28-2024 Lymphocytes/100 WBC (Bld) 32.2 % 19-41 [facility] MCV (mean corpuscular volume ) determinationOrdered By: Heather Hall on 04-28-2024 MCV (RBC) [Entitic vol] 93.2 fL 81-99 [facility] Mean corpuscular hemoglobin (MCH) determinationOrdered By: Heather Hall on 04-28-2024 MCH (RBC) [Entitic mass] 32.2 pg High 27.0-32.0 [facility] Mean corpuscular hemoglobin concentration (MCHC) determinationOrdered By: Heather Hall on 04-28-2024 MCHC (RBC) [Mass/Vol] 34.6 g/dL 32-36 [facility] Mean platelet volume determi nationOrdered By: Heather Hall on 04-28-2024 Platelet mean volume (Bld) [Entitic vol] 8.3 fL 6.2-12.0 [facility] Monocyte percentageOrdered B y: Heather Hall on 04-28-2024 Monocytes/100 WBC (Bld) 7.6 % 0-10 [facility] Neutrophil percentageOrdered By: Heather Hall on 04-28-2024 Neutrophils/100 WBC (Bld) 59.2 % 47-70 [facility] Nucleated red blood cell per centageOrdered By: Heather Hall on 04-28-2024 Nucleated RBC/100 WBC (Bld) [Ratio] 0 % 0-5 [facility] Platelet countOrdered By: Kip Hall on 04-28-2024 Platelets (Bld) [#/Vol] 241 10*3/uL 150-450 [facility] Potassium (Unsp spec) [Mass/ Vol]Ordered By: Heather Hall on 04-28-2024 Potassium [Moles/Vol] 4.3 mmol/L 3.3-5.1 [facility] RBC Auto (Bld) [#/Vol]Ordere d By: Heather Hall on 04-28-2024 RBC (Bld) [#/Vol] 4.28 10*6/uL 4.2-5.4 [facility] Serum creatinine measurement (mass/volume)Ordered By: Heather Hall on 04-28-2024 Creatinine [Mass/Vol] 0.91 mg/dL 0.70-1.20 [facility] Serum globulin measurementOr dered By: Heather Hall on 04-28-2024 Globulin (S) [Mass/Vol] 2.0 g/dL Low 2.2-4.2 [facility] Serum glucose measurement (m ass/volume)Ordered By: Heather Hall on 04-28-2024 Glucose [Mass/Vol] 99 mg/dL 70-99 [facility] Serum or plasma alanine laureano otransferase (ALT) measurementOrdered By: Heather Hall on 04-28-2024 ALT [Catalytic activity/Vol] 16 U/L <35 [facility] Serum or plasma albumin ilana urement (mass/volume)Ordered By: Heather Hall on 04-28-2024 Albumin [Mass/Vol] 4.2 g/dL 3.4-4.8 [facility] Serum or plasma albumin/glob ulin mass ratioOrdered By: Heather Hall on 04-28-2024 Albumin/Globulin [Mass ratio] 2.0 {ratio} 0.9-2.4 [facility] Serum or plasma alkaline andrew sphatase measurementOrdered By: Heather Hall on 04-28-2024 ALP [Catalytic activity/Vol] 63 U/L 35-104 [facility] Serum or plasma calcium ilana urement (mass/volume)Ordered By: Heather Hall on 04-28-2024 Calcium [Mass/Vol] 9.3 mg/dL 7.6-11.0 [facility] Serum or plasma urea nitroge n measurement (mass/volume)Ordered By: Heather Hall on 04-28-2024 Urea nitrogen [Mass/Vol] 20 mg/dL High 4-19 [facility] Sodium levelOrdered By: Larisa Hall on 04-28-2024 Sodium [Moles/Vol] 135 mmol/L 133-145 [facility] Total proteinOrdered By: Shamika Hall on 04-28-2024 Protein [Mass/Vol] 6.2 g/dL 5.9-8.4 [facility] White blood cell (WBC) count Ordered By: Heather Hall on 04-28-2024 WBC (Bld) [#/Vol] 6.8 10*3/uL 4.4-11.[address] [facility] [address]ose [address] Lung Screeningon 04-25-[address] Lung Screening Normal [facility] Inital Evaluation (1) - PTon 04-10-2024 Inital Evaluation (1) - PT Normal [facility] L/S Spine w Bend Min 6 Vwon 04-07-2024 L/S Spine w Bend Min 6 Vw Normal [facility] MR/POSTOP.ANEon 04-07-2024 MR/POSTOP.ANE Normal [facility] MR/[id number] 04-07-2024 MR/POSTOPAN2 Normal [facility] Operative Reporton Operative Report Normal [facility] Orthopedic Visit Reporton Orthopedic Visit Report Normal [facility] Cerv Spine 4 or 5 Viewson Cerv Spine 4 or 5 Views Normal [facility] L/S Spine Min 4 Viewson L/S Spine Min 4 Views Normal [facility] Chest PA and Lateralon 01-24 Chest PA and Lateral Normal [facility] Office Visit Reporton 2023 Office Visit Report Normal [facility] L/S Spine Min 4 Viewson 12-20 L/S Spine Min 4 Views Normal [facility] MR/POSTOP.ANEon 11-18-2024 MR/POSTOP.ANE Normal [facility] MR/[id number] 01-07-2024 MR/POSTOPAN2 Normal [facility] Operative Reporton Operative Report Normal [facility] MRI 3D POST PROCESSINGon MRI 3D POST PROCESSING * * *Final Report * * * DATE OF EXAM: May 24 2023 1:27PM [facility] - MRI 3D POST PROCESSING / PROCEDURE [...] be communicated with the ordering provider via [employer] staff message or phone message by [employer] within 2 business days of report finalization. --END OF FINDING-- Locker Plant Attendant: BARBARA Transcribe Date/Time: May 28 2023 2:21P Dictated by : TAMIR PERRY MD This examination was interpreted and the report reviewed and electronically signed by: TAMIR PERRY MD on May 28 2023 2:33PM EST [id number] ACTIONABLE Invalid Interpretation Code [facility] MRI PANC/KATIE WO/W IVCONon MRI PANC/KATIE WO/W IVCON * * *Final Repor t* * * DATE OF EXAM: May 24 2023 1:27PM [facility] 0730 - MRI PANC/KATIE WO/W IVCON / [...] be communicated with the ordering provider via [employer] staff message or phone message by [employer] within 2 business days of report finalization. --END OF FINDING-- Locker Plant Attendant: BARBARA Transcribe Date/Time: May 28 2023 2:21P Dictated by : TAMIR PERRY MD This examination was interpreted and the report reviewed and electronically signed by: TAMIR PERRY MD on May 28 2023 2:33PM EST [id number] [id number] Invalid Interpretation Code [facility] [id number] 05-04-2023 [id number] HNO ID: [id number] Author: RENEA HICKEY RN Service: ? Author Type: Registered Nurse Type: [id number] Filed: 05/04/2023 10:49 Note Text: The patient received a copy of EGD discharge instructions that contain information for how to contact the physician who performed the procedure and when to seek medical care. Normal [facility] EGD Study observation Narrat iveon 05-04-2023 [facility] HISTORY PHYSICALon HISTORY PHYSICAL HNO ID: [id number] Author: SANGEETHA SILVA MD Service: General Surgery [...] weight loss, emesis. Reports Colon 02/2022 w/ [facility] w/ Dr. Hidalgo, told she had polyps and repeat in 5 yrs 02/2023 CBC, CMP WNL 02/2023 CT abd/pelv [facility] Hepatomegalty Diverticulosis Atherosclerosis Stable left lower lung [...] SCREENING 03/13/2022 EGD TRANSORAL BIOPSY SINGLE/MULTIPLE 12/24/2007 ESOPHAGOGASTRODUODENOSCOP Y TRANSORAL DIAGNOSTIC 04/26/2012 Normal LAPS SURG CHOLECYSTECTOMY [...] (MYRBETRIQ) 25 mg Tb24 Take by mouth. esgemolhfno-qlqmwadna-vwh anter (TRELEGY ELLIPTA) 100-62.5-25 mcg inhalation powder Inhale [...] 132/76 Pulse 74 Ht 165.1 cm (5' 5") Wt 110.7 kg (244 lb) BMI 40.60 [...] so (more 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 Normal [facility] SURGICAL PATHOLOGYon 024 CASE REPORT Normal [facility] Comment on above: Order Comment: Speci men Type: TISSUE SPECIMEN Ordering Facility: [facility] Address: [address] [place] [address] Result Comment: Surg ica Pathology Report Case: [id number] Authorizing Provider: Sangeetha Silva MD Collected: 05/04/2023 10:32 AM Ordering Location: Ambulatory Surgery Received: 05/04/2023 02:02 PM Pathologist: Lili Peterson MD Specimens: A) - ANTRUM (STOMACH) BIOPSY, Antral bx h/h B) - ESOPHAGOGASTRIC JUNCTION BIOPSY, GE junction bx Performed By: #### S #### [facility] CLIA [id number] [address] [place] [address] OF [facility] CLIA [id number] [address] [place] [address] OF [place] DIAGNOSIS COMMENT A. No microorganisms morphologically compatible with Helicobacter Pylori like organisms are identified by routine H AND E-stained sections. Normal [facility] Comment on above: Order Comment: Speci men Type: TISSUE SPECIMEN Ordering Facility: [facility] Address: [address] [place] [address] Performed By: #### S #### [facility] CLIA [id number] [address] [place] [address] STATES OF [facility] CLIA [id number] [address] [place] [address] [place] FINAL DIAGNOSIS Normal [facility] Comment on above: Order Comment: Michellei tennille Type: TISSUE SPECIMEN Ordering Facility: [facility] Address: [address] [place] [address] Result Comment: Jayde santana, antrum, biopsy: - Gastric antral type mucosa with no pathologic diagnostic abnormality; see comment. B. Esophagogastric junction, biopsy: - Squamous and gastric mucosa with no pathologic diagnostic abnormality; negative for intraepithelial eosinophils, intestinal metaplasia or dysplasia. Performed By: #### S #### [facility] CLIA [id number] [address] [place] [address] OF [facility] CLIA [id number] [address] [place] [address] FINAL PERFORMING LAB Normal [facility] Comment on above: Order Comment: Speci men Type: TISSUE SPECIMEN Ordering Facility: [facility] Address: [address] [place] [address] Result Comment: Diag nostic interpretation performed at [facility], [address] [place] [address] CLIA# [id number] Millinery Worker: Lili Peterson M.D. Performed By: #### S #### [facility] CLIA [id number] [address] [place] [address] STATES OF [place] [facility] CLIA [id number] [address] [place] [address] GROSS DESCRIPTION Normal [facility] Comment on above: Order Comment: Speci men Type: TISSUE SPECIMEN Ordering Facility: [facility] Address: [address] [place] [address] Result Comment: A. A NTRUM (STOMACH) BIOPSY Received in formalin are two pieces of gutierrez, soft tissue aggregating to 0.8 x 0.2 x 0.2 cm. Totally submitted in one cassette. B. ESOPHAGOGASTRIC JUNCTION BIOPSY Received in formalin are two pieces of gutierrez-white, soft tissue aggregating to 0.7 x 0.3 x 0.2 cm. Totally submitted in one cassette. Gross examination performed at [facility], [address] [place] [address] FFS 05/04/2023 11:52 PM Performed By: #### S #### [facility] CLIA [id number] [address] [place] [id number] [place] [facility] CLIA [id number] [facility] [place] [address] [place] Upper GI endoscopyon 03-15-2 024 Upper GI endoscopy [facility] Gastrointestinal Endoscopy Patient Name: Monica Maldonado Procedure Date: 05/04/2023 10:13 AM Date of : 1960 Admit Type: Outpatient Age: 63 Gender: Female Note Status: Finalized Procedure: Upper GI endoscopy Indications: Epigastric abdominal pain Providers: Sangeetha Silva MD Patient Profile: Refer to note in patient chart for documentation of history and physical. Referring Physician: Phyllis Almeida (pa) (Referring MD) Medicines: Midazolam 5 mg IV, Fentanyl 50 [...] available appointment. Procedure Code(s): --- Professional --- 77349, Esophagogastroduodenoscop y, flexible, transoral; with biopsy, single or multiple [address]9611, 59, Moderate sedation services provided by the same physician or other qualified health director of primary care performing the diagnostic or therapeutic service that [...] of stomach and duodenum CPT copyright 2020 [employer]. All rights reserved. The codes documented in this report are preliminary and upon invoice coder review may be revised to meet current compliance requirements. Attending Participation: I personally performed the entire procedure. Scope In: 10:28:20 AM Scope Out: 10:34:20 AM MD Sangeetha Turpin MD 05/04/2023 10:40:00 AM This report has been signed electronically b (more 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 Normal [facility] No Panel Informationon 04-30 [facility] US ABD RIGHT UPPER QUADRANTo n 05-01-2023 [...] cholecystectomy. Normal sonographic appearance of the spleen Locker Plant Attendant: BARBARA Transcribe Date/Time: May 01 2023 9:18A Dictated by : SKYLER GILMORE MD This examination was interpreted and the report reviewed and electronically signed by: SKYLER GILMORE MD on May 01 2023 9:25AM EST [id number] Normal [facility] US ABD SPLEEN -NBon 05-01-19 24 US ABD SPLEEN -NB * * *Final [...] cholecystectomy. Normal sonographic appearance of the spleen Locker Plant Attendant: [facility] Transcribe Date/Time: May 01 2023 9:18A Dictated by : SKYLER GILMORE MD This examination was interpreted and the report reviewed and electronically signed by: SKYLER GILMORE MD on May 01 2023 9:25AM EST [id number] Normal [facility] CNOVon 04-18-2023 CNOV Office Visit ([facility] ) ----- MONICA MALDONADO ([id number]) 1960 F Date Time Provider Department 04/18/23 [...] weight loss, emesis. Reports Colon 02/2022 w/ [facility] w/ Friend, told she had polyps and repeat in 5 yrs 02/2023 CBC, CMP WNL 02/2023 CT abd/pelv [facility] Hepatomegalty Diverticulosis Atherosclerosis Stable left lower lung [...] SCREENING 03/13/2022 EGD TRANSORAL BIOPSY SINGLE/MULTIPLE 12/24/2007 ESOPHAGOGASTRODUODENOSCOP Y TRANSORAL DIAGNOSTIC 04/26/2012 Normal LAPS SURG CHOLECYSTECTOMY [...] (MYRBETRIQ) 25 mg Tb24 Take by mouth. ihnwqqpihbc-nogdeocig-fxt anter (TRELEGY ELLIPTA) 100-62.5-25 mcg inhalation powder Inhale [...] 132/76 Pulse 74 Ht 165.1 cm (5' 5") Wt 110.7 kg (244 lb) BMI 40.60 [...] regular (more 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 Normal [facility] Absolute lymphocyte countOrd ered By: Leon Pinto on 02-22-2023 Lymphocytes Auto (Unsp spec) [#/Vol] 2.53 10*3/uL 0.83-4.51 [facility] Basophil percentageOrdered B y: Leon Pinto on 02-22-2023 Amylase [Catalytic activity/Vol] 57 U/L 25-115 [facility] Basophils/100 WBC (Bld) 0.4 % 0-1 [facility] Bilirubin [Mass/Vol] 0.20 mg/dL 0.20-1.00 [facility] Comment on above: For patients on eltr ombopag therapy, use of Dimension [place] TBIL is not recommended. Chloride [Moles/Vol] 105 mmol/L 98-107 [facility] Eosinophils/100 WBC (Bld) 1.0 % 0-5 [facility] Glucose [Mass/Vol] 94 mg/dL 74-106 [facility] Neutrophils (Bld) [#/Vol] 5.7 10*3/uL 2.0-7.7 [facility] Neutrophils/100 WBC (Bld) 62.5 % 47-70 [facility] Potassium [Moles/Vol] 3.8 mmol/L 3.5-5.1 [facility] Protein [Mass/Vol] 7.2 g/dL 6.4-8.2 [facility] Sodium [Moles/Vol] 142 mmol/L 136-145 [facility] WBC (Bld) [#/Vol] 9.1 10*3/uL 4.4-11.0 [facility] Blood erythrocytes count (nu mber/volume)Ordered By: Leon Pinto on 02-22-2023 RBC (Bld) [#/Vol] 4.56 10*6/uL 4.2-5.4 [facility] Blood hemoglobin measurement (mass/volume)Ordered By: Leon Pinto on 02-22-2023 Hemoglobin (Bld) [Mass/Vol] 14.5 g/dL 12.0-15.0 [facility] Blood lymphocytes/100 leukoc ytesOrdered By: Leon Pinto on 02-22-2023 Lymphocytes/100 WBC (Bld) 27.9 % 19-41 [facility] Blood monocytes/100 leukocyt esOrdered By: Leon Pinto on 02-22-2023 Monocytes/100 WBC (Bld) 7.4 % 0-10 [facility] Blood platelet mean volumeOr dered By: Leon Pinto on 02-22-2023 Platelet mean volume (Bld) [Entitic vol] 9.2 fL 6.2-12.0 [facility] Determination of erythrocyte mean corpuscular volume (MCV)Ordered By: Leon Blair on 02-22-2023 MCV (RBC) [Entitic vol] 96.3 fL 81-99 [facility] Hematocrit Auto (Bld) [Volum e fraction]Ordered By: [facility] on 02-22-2023 Hematocrit (Bld) [Volume fraction] 43.9 % 37-47 [facility] Laboratory - Chemistry and C hemistry - challengeOrdered By: [facility] on 02-22-2023 ALP [Catalytic activity/Vol] 87 U/L 45-117 [facility] ALT [Catalytic activity/Vol] 26 U/L 13-56 [facility] CO2 [Moles/Vol] 31.0 mmol/L 21.0-32.0 [facility] Globulin (S) [Mass/Vol] 3.5 g/dL 2.2-4.2 [facility] Lipase [Catalytic activity/Vol] 61 U/L 13-75 [facility] Comment on above: Please note:LIPASE r evised reference range effective 22. New Lipase methodology. Expected to produce lower values than the previous assay method. NEW Reference Range: 13 - 75 U/L Urea nitrogen/Creatinine [Mass ratio] 18.1 mg/mg 10-20 [facility] Laboratory - Hematology and Cell countsOrdered By: [facility] on 02-22-2023 Erythrocyte distribution width (RBC) [Entitic vol] 48.1 fL 35.1-43.9 [facility] Erythrocyte distribution width (RBC) [Ratio] 13.8 % 11.6-14.6 [facility] Immature granulocytes/100 WBC (Bld) 0.800 % 0.0-0.9 [facility] Comment on above: IG% - Immature Granu locytes (promyelocytes, myelocytes and metamyelocytes) > 1% indicates that a LEFT SHIFT is Present. MCH (RBC) [Entitic mass] 31.8 pg 27.0-32.0 [facility] Nucleated RBC/100 WBC (Bld) [Ratio] 0 % 0-5 [facility] MCHC Auto (RBC) [Mass/Vol]Or dered By: Leon Pinto on 02-22-2023 MCHC (RBC) [Mass/Vol] 33.0 g/dL 32-36 [facility] No Panel InformationOrdered By: Leon Pinto on 02-22-2023 Estimated GFR (MDRD) Amer 78 mL/min >60 [facility] Comment on above: GFR Calc Estimated GFR (MDRD) Non-Af Amer 64 mL/min >60 [facility] Comment on above: Non- GFR Calc Platelets bldOrdered By: Leon Pinto on 02-22-2023 Platelets (Bld) [#/Vol] 361 10*3/uL 150-450 [facility] Serum or plasma albumin ilana urement (mass/volume)Ordered By: Leon Pinto on 02-22-2023 Albumin [Mass/Vol] 3.7 g/dL 3.2-5.0 [facility] Serum or plasma albumin/glob ulin mass ratioOrdered By: Leon Pinto on 02-22-2023 Albumin/Globulin [Mass ratio] 1.1 {ratio} 0.9-2.4 [facility] Serum or plasma calcium ilana urement (mass/volume)Ordered By: Leon Pinto on 02-22-2023 Calcium [Mass/Vol] 9.7 mg/dL 8.5-10.1 [facility] Serum or plasma creatinine m easurement (mass/volume)Ordered By: Leon Pinto on 02-22-2023 Creatinine [Mass/Vol] 0.94 mg/dL 0.55-1.02 [facility] Comment on above: The validity of the calculated GFR & GFRAA in patients over 70 years has not been determined. Clinical correlation is essential. Serum or plasma urea nitroge n measurement (mass/volume)Ordered By: Leon Pinto on 02-22-2023 Urea nitrogen [Mass/Vol] 17 mg/dL 7-18 [facility] Thin prep Papanicolaou smear with manual screeningOrdered By: Leon Pinto on 02-22-2023 Thin prep Papanicolaou smear with manual screening 17 U/L 15-37 [facility] Thin prep Papanicolaou smear with manual screening 6 5-15 [facility] Absolute lymphocyte countOrd ered By: Leon Pinto on 11-28-2022 Lymphocytes Auto (Unsp spec) [#/Vol] 2.54 10*3/uL 0.83-4.51 [facility] Basophil percentageOrdered B y: Leon Pinto on 11-28-2022 Basophils/100 WBC (Bld) 0.6 % 0-1 [facility] Bilirubin [Mass/Vol] 0.20 mg/dL 0.20-1.00 [facility] Comment on above: For patients on eltr ombopag therapy, use of Dimension [place] TBIL is not recommended. Chloride [Moles/Vol] 108 mmol/L 98-107 [facility] Eosinophils/100 WBC (Bld) 0.5 % 0-5 [facility] Glucose [Mass/Vol] 108 mg/dL 74-106 [facility] Comment on above: Fasting Glucose resu lt from 100 to 125 mg/dL suggests IMPAIRED HOMEOSTASIS per A.D.A. criteria. Neutrophils (Bld) [#/Vol] 7.3 10*3/uL 2.0-7.7 [facility] Neutrophils/100 WBC (Bld) 67.9 % 47-70 [facility] Potassium [Moles/Vol] 3.8 mmol/L 3.5-5.1 [facility] Protein [Mass/Vol] 7.0 g/dL 6.4-8.2 [facility] Sodium [Moles/Vol] 140 mmol/L 136-145 [facility] WBC (Bld) [#/Vol] 10.7 10*3/uL 4.4-11.0 [facility] Blood erythrocytes count (nu mber/volume)Ordered By: Leon Pinto on 11-28-2022 RBC (Bld) [#/Vol] 4.36 10*6/uL 4.2-5.4 [facility] Blood hemoglobin measurement (mass/volume)Ordered By: Leon Pinto on 11-28-2022 Hemoglobin (Bld) [Mass/Vol] 14.0 g/dL 12.0-15.0 [facility] Blood lymphocytes/100 leukoc ytesOrdered By: Leon Pinto on 11-28-2022 Lymphocytes/100 WBC (Bld) 23.8 % 19-41 [facility] Blood monocytes/100 leukocyt esOrdered By: Leon Pinto on 11-28-2022 Monocytes/100 WBC (Bld) 6.3 % 0-10 [facility] Blood platelet mean volumeOr dered By: Leon Pinto on 11-28-2022 Platelet mean volume (Bld) [Entitic vol] 9.0 fL 6.2-12.0 [facility] Determination of erythrocyte mean corpuscular volume (MCV)Ordered By: Leon Pinto on 11-28-2022 MCV (RBC) [Entitic vol] 98.2 fL 81-99 [facility] Hematocrit Auto (Bld) [Volum e fraction]Ordered By: [facility] on 11-28-2022 Hematocrit (Bld) [Volume fraction] 42.8 % 37-47 [facility] Laboratory - Chemistry and C hemistry - challengeOrdered By: [facility] on 11-28-2022 ALP [Catalytic activity/Vol] 75 U/L 45-117 [facility] ALT [Catalytic activity/Vol] 23 U/L 13-56 [facility] CO2 [Moles/Vol] 26.0 mmol/L 21.0-32.0 [facility] Globulin (S) [Mass/Vol] 3.6 g/dL 2.2-4.2 [facility] Urea nitrogen/Creatinine [Mass ratio] 16.3 mg/mg 10-20 [facility] - Hematology and Cell countsOrdered By: Leon Pinto 11-28-2022 Erythrocyte distribution width (RBC) [Entitic vol] 51.1 fL 35.1-43.9 [facility] Erythrocyte distribution width (RBC) [Ratio] 14.2 % 11.6-14.6 [facility] Immature granulocytes/100 WBC (Bld) 0.900 % 0.0-0.9 [facility] Comment on above: IG% - Immature Granu locytes (promyelocytes, myelocytes and metamyelocytes) > 1% indicates that a LEFT SHIFT is Present. MCH (RBC) [Entitic mass] 32.1 pg 27.0-32.0 [facility] Nucleated RBC/100 WBC (Bld) [Ratio] 0 % 0-5 [facility] MCHC Auto (RBC) [Mass/Vol]Or dered By: Leon Pinto on 11-28-2022 MCHC (RBC) [Mass/Vol] 32.7 g/dL 32-36 [facility] No Panel InformationOrdered By: Leon Pinto on 11-28-2022 Estimated GFR (MDRD) Amer 74 mL/min >60 [facility] Comment on above: GFR Calc Estimated GFR (MDRD) Non-Af Amer 61 mL/min >60 [facility] Comment on above: Non- GFR Calc Thyroid Stimulating Hormone (TSH) 3.09 uIU/mL 0.358-3.74 [facility] Platelets bldOrdered By: Leon Pinto on 11-28-2022 Platelets (Bld) [#/Vol] 341 10*3/uL 150-450 [facility] Serum or plasma albumin ilana urement (mass/volume)Ordered By: Leon Pinto on 11-28-2022 Albumin [Mass/Vol] 3.4 g/dL 3.2-5.0 [facility] Serum or plasma albumin/glob ulin mass ratioOrdered By: Leno Pinto 11-28-2022 Albumin/Globulin [Mass ratio] 0.9 {ratio} 0.9-2.4 [facility] Serum or plasma calcium ilana urement (mass/volume)Ordered By: Leon Pinto 11-28-2022 Calcium [Mass/Vol] 8.8 mg/dL 8.5-10.1 [facility] Serum or plasma creatinine m easurement (mass/volume)Ordered By: Leon Pinto 11-28-2022 Creatinine [Mass/Vol] 0.98 mg/dL 0.55-1.02 [facility] Comment on above: The validity of the calculated GFR & GFRAA in patients over 70 years has not been determined. Clinical correlation is essential. Serum or plasma urea nitroge n measurement (mass/volume)Ordered By: Leon Pinto on 11-28-2022 Urea nitrogen [Mass/Vol] 16 mg/dL 7-18 [facility] Thin prep Papanicolaou smear with manual screeningOrdered By: Leon Pinto 11-28-2022 Thin prep Papanicolaou smear with manual screening 13 U/L 15-37 [facility] Thin prep Papanicolaou smear with manual screening 6 5-15 [facility] Whole blood hemoglobin A1c/t otal hemoglobin ratio (mass fraction)Ordered By: Leon Pinto on 11-28-2022 HbA1c (Bld) [Mass fraction] 5.2 % 3.8-5.6 [facility] Comment on above: Normal < 5.7 % Predi abetic 5.7 - 6.4 % Diabetic >or= 6.5 % Please note range changes. Laboratory - Microbiology an d Antimicrobial susceptibilityOrdered By: Leon Pinto on 10-27-2022 SARS-CoV-2 (COVID-19) RNA MALIA+probe Ql (Unsp spec) [facility] No Panel InformationOrdered By: Leon Pinto on 10-27-2022 Influenza Types A,B Direct FA (BINA) [facility] RSV Ag EIAOrdered By: Leon roberson on 10-27-2022 RSV Ag Immune stain Ql (Tiss) [facility] Laboratory - Microbiology an d Antimicrobial susceptibilityOrdered By: Leon Pinto on 10-12-2022 SARS-CoV-2 (COVID-19) RNA MALIA+probe Ql (Unsp spec) [facility] No Panel InformationOrdered By: Leon Pinto on 10-12-2022 Influenza Types A,B Direct FA (BINA) [facility] RSV Ag EIAOrdered By: Leon roberson on 10-12-2022 RSV Ag Immune stain Ql (Tiss) [facility] Absolute lymphocyte countOrd ered By: KAYLEE COULTER on 09-01-2022 Lymphocytes Auto (Unsp spec) [#/Vol] 2.33 10*3/uL 0.83-4.51 [facility] Basophil percentageOrdered B y: KAYLEE COULTER on 09-01-2022 Basophils/100 WBC (Bld) 0.4 % 0-1 [facility] Bilirubin [Mass/Vol] 0.20 mg/dL 0.20-1.00 [facility] Comment on above: For patients on eltr ombopag therapy, use of Dimension [place] TBIL is not recommended. Eosinophils/100 WBC (Bld) 0.6 % 0-5 [facility] Neutrophils (Bld) [#/Vol] 5.0 10*3/uL 2.0-7.7 [facility] Neutrophils/100 WBC (Bld) 60.9 % 47-70 [facility] Protein [Mass/Vol] 7.2 g/dL 6.4-8.2 [facility] WBC (Bld) [#/Vol] 8.3 10*3/uL 4.4-11.0 [facility] Blood erythrocytes count (nu mber/volume)Ordered By: KAYLEE COULTER on 09-01-2022 RBC (Bld) [#/Vol] 4.71 10*6/uL 4.2-5.4 [facility] Blood hemoglobin measurement (mass/volume)Ordered By: KAYLEE COULTER on 09-01-2022 Hemoglobin (Bld) [Mass/Vol] 14.7 g/dL 12.0-15.0 [facility] Blood lymphocytes/100 leukoc ytesOrdered By: KAYLEE COULTER on 09-01-2022 Lymphocytes/100 WBC (Bld) 28.2 % 19-41 [facility] Blood monocytes/100 leukocyt esOrdered By: KAYLEE COULTER on 09-01-2022 Monocytes/100 WBC (Bld) 9.4 % 0-10 [facility] Blood platelet mean volumeOr dered By: KAYLEE COULTER on 09-01-2022 Platelet mean volume (Bld) [Entitic vol] 9.4 fL 6.2-12.0 [facility] Determination of erythrocyte mean corpuscular volume (MCV)Ordered By: KAYLEE COULTER on 09-01-2022 MCV (RBC) [Entitic vol] 94.1 fL 81-99 [facility] Direct bilirubinOrdered By: KAYLEE COULTER on 09-01-2022 Bilirubin.direct [Mass/Vol] 0.09 mg/dL 0.00-0.30 [facility] Erythrocyte sedimentation ra teOrdered By: KAYLEE COULTER on 09-01-2022 ESR (Bld) [Velocity] 13 mm/h 0-30 [facility] Hematocrit Auto (Bld) [Volum e fraction]Ordered By: KAYLEE COULTER on 09-01-2022 Hematocrit (Bld) [Volume fraction] 44.3 % 37-47 [facility] - Chemistry and C hemistry - challengeOrdered By: KAYLEE COULTER on 09-01-2022 ALP [Catalytic activity/Vol] 86 U/L 45-117 [facility] ALT [Catalytic activity/Vol] 25 U/L 13-56 [facility] Globulin (S) [Mass/Vol] 3.7 g/dL 2.2-4.2 [facility] - Hematology and Cell countsOrdered By: KAYLEE COULTER on 09-01-2022 Erythrocyte distribution width (RBC) [Entitic vol] 44.5 fL 35.1-43.9 [facility] Erythrocyte distribution width (RBC) [Ratio] 12.9 % 11.6-14.6 [facility] Immature granulocytes/100 WBC (Bld) 0.500 % 0.0-0.9 [facility] Comment on above: IG% - Immature Granu locytes (promyelocytes, myelocytes and metamyelocytes) > 1% indicates that a LEFT SHIFT is Present. MCH (RBC) [Entitic mass] 31.2 pg 27.0-32.0 [facility] Nucleated RBC/100 WBC (Bld) [Ratio] 0 % 0-5 [facility] MCHC Auto (RBC) [Mass/Vol]Or dered By: KAYLEE COULTER on 09-01-2022 MCHC (RBC) [Mass/Vol] 33.2 g/dL 32-36 [facility] No Panel InformationOrdered By: KAYLEE COULTER on 09-01-2022 Estimated GFR (MDRD) Amer 82 mL/min >60 [facility] Comment on above: GFR Calc Estimated GFR (MDRD) Non-Af Amer 68 mL/min >60 [facility] Comment on above: Non- GFR Calc Platelets bldOrdered By: LORA COULTER on 09-01-2022 Platelets (Bld) [#/Vol] 291 10*3/uL 150-450 [facility] Serum or plasma C reactive p rotein measurement (mass/volume)Ordered By: KAYLEE COULTER on 09-01-2022 CRP [Mass/Vol] 6.57 mg/L 0.0-3.0 [facility] Comment on above: C-Reactive Protein ( CRP) provides useful information for thediagnosis, therapy and monitoring of inflammatory processesand associated diseases. For the evaluation of Relative Riskfor Cardiovascular Disease, a High Sensitivity CRP (HSCRP)should be ordered. Serum or plasma albumin ilana urement (mass/volume)Ordered By: KAYLEE COULTER on 09-01-2022 Albumin [Mass/Vol] 3.5 g/dL 3.2-5.0 [facility] Serum or plasma creatinine m easurement (mass/volume)Ordered By: KAYLEE COULTER on 09-01-2022 Creatinine [Mass/Vol] 0.90 mg/dL 0.55-1.02 [facility] Comment on above: The validity of the calculated GFR & GFRAA in patients over 70 years has not been determined. Clinical correlation is essential. Thin prep Papanicolaou smear with manual screeningOrdered By: KAYLEE COULTER on 09-01-2022 Thin prep Papanicolaou smear with manual screening 16 U/L 15-37 [facility] Urine creatinine measurement (mass/volume)Ordered By: KAYLEE COULTER on 09-01-2022 Creatinine (U) [Mass/Vol] 32.50 mg/dL NO RANGE EST. [facility] - Microbiology an d Antimicrobial susceptibilityon 08-03-2022 SARS-CoV-2 (COVID-19) RNA MALIA+probe Ql (Unsp spec) Not detected [facility] Absolute lymphocyte countOrd ered By: KAYLEE COULTER on 06-14-2022 Lymphocytes Auto (Unsp spec) [#/Vol] 1.99 10*3/uL 0.83-4.51 [facility] Basophil percentageOrdered B y: KAYLEE COULTER on 06-14-2022 Basophils/100 WBC (Bld) 0.3 % 0-1 [facility] Bilirubin [Mass/Vol] 0.30 mg/dL 0.20-1.00 [facility] Comment on above: For patients on eltr ombopag therapy, use of Dimension [place] TBIL is not recommended. Eosinophils/100 WBC (Bld) 1.2 % 0-5 [facility] Neutrophils (Bld) [#/Vol] 4.1 10*3/uL 2.0-7.7 [facility] Neutrophils/100 WBC (Bld) 58.7 % 47-70 [facility] Protein [Mass/Vol] 7.1 g/dL 6.4-8.2 [facility] WBC (Bld) [#/Vol] 6.9 10*3/uL 4.4-11.0 [facility] Blood erythrocytes count (nu mber/volume)Ordered By: KAYLEE COULTER on 06-14-2022 RBC (Bld) [#/Vol] 4.45 10*6/uL 4.2-5.4 [facility] Blood hemoglobin measurement (mass/volume)Ordered By: KAYLEE COULTER on 06-14-2022 Hemoglobin (Bld) [Mass/Vol] 14.2 g/dL 12.0-15.0 [facility] Blood lymphocytes/100 leukoc ytesOrdered By: KAYLEE COULTER on 06-14-2022 Lymphocytes/100 WBC (Bld) 28.8 % 19-41 [facility] Blood monocytes/100 leukocyt esOrdered By: KAYLEE COULTER on 06-14-2022 Monocytes/100 WBC (Bld) 10.7 % 0-10 [facility] Blood platelet mean volumeOr dered By: KAYLEE COULTER on 06-14-2022 Platelet mean volume (Bld) [Entitic vol] 10.1 fL 6.2-12.0 [facility] Determination of erythrocyte mean corpuscular volume (MCV)Ordered By: KAYLEE COULTER on 06-14-2022 MCV (RBC) [Entitic vol] 97.3 fL 81-99 [facility] Direct bilirubinOrdered By: KAYLEE COULTER on 06-14-2022 Bilirubin.direct [Mass/Vol] 0.10 mg/dL 0.00-0.30 [facility] Hematocrit Auto (Bld) [Volum e fraction]Ordered By: KAYLEE COULTER on 06-14-2022 Hematocrit (Bld) [Volume fraction] 43.3 % 37-47 [facility] - Chemistry and C hemistry - challengeOrdered By: KAYLEE COULTER on 06-14-2022 ALP [Catalytic activity/Vol] 84 U/L 45-117 [facility] ALT [Catalytic activity/Vol] 29 U/L 13-56 [facility] Globulin (S) [Mass/Vol] 3.5 g/dL 2.2-4.2 [facility] - Hematology and Cell countsOrdered By: KAYLEE COULTER on 06-14-2022 Erythrocyte distribution width (RBC) [Entitic vol] 47.5 fL 35.1-43.9 [facility] Erythrocyte distribution width (RBC) [Ratio] 13.2 % 11.6-14.6 [facility] Immature granulocytes/100 WBC (Bld) 0.300 % 0.0-0.9 [facility] Comment on above: IG% - Immature Granu locytes (promyelocytes, myelocytes and metamyelocytes) > 1% indicates that a LEFT SHIFT is Present. MCH (RBC) [Entitic mass] 31.9 pg 27.0-32.0 [facility] Nucleated RBC/100 WBC (Bld) [Ratio] 0 % 0-5 [facility] MCHC Auto (RBC) [Mass/Vol]Or dered By: KAYLEE COULTER on 06-14-2022 MCHC (RBC) [Mass/Vol] 32.8 g/dL 32-36 [facility] Platelets bldOrdered By: LORA COULTER on 06-14-2022 Platelets (Bld) [#/Vol] 299 10*3/uL 150-450 [facility] Serum or plasma albumin ilana urement (mass/volume)Ordered By: KAYLEE COULTER on 06-14-2022 Albumin [Mass/Vol] 3.6 g/dL 3.2-5.0 [facility] Thin prep Papanicolaou smear with manual screeningOrdered By: KAYLEE COULTER on 06-14-2022 Thin prep Papanicolaou smear with manual screening 21 U/L 15-37 [facility] Absolute lymphocyte countOrd ered By: KAYLEE COULTER on 05-11-2022 Lymphocytes Auto (Unsp spec) [#/Vol] 2.25 10*3/uL 0.83-4.51 [facility] Basophil percentageOrdered B y: KAYLEE COULTER on 05-11-2022 Basophils/100 WBC (Bld) 0.6 % 0-1 [facility] Bilirubin [Mass/Vol] 0.30 mg/dL 0.20-1.00 [facility] Comment on above: For patients on eltr ombopag therapy, use of Dimension [place] TBIL is not recommended. Eosinophils/100 WBC (Bld) 0.6 % 0-5 [facility] Neutrophils (Bld) [#/Vol] 5.5 10*3/uL 2.0-7.7 [facility] Neutrophils/100 WBC (Bld) 64.5 % 47-70 [facility] Protein [Mass/Vol] 7.2 g/dL 6.4-8.2 [facility] WBC (Bld) [#/Vol] 8.6 10*3/uL 4.4-11.0 [facility] Blood erythrocytes count (nu mber/volume)Ordered By: KAYLEE COULTER on 05-11-2022 RBC (Bld) [#/Vol] 4.36 10*6/uL 4.2-5.4 [facility] Blood hemoglobin measurement (mass/volume)Ordered By: KAYLEE COULTER on 05-11-2022 Hemoglobin (Bld) [Mass/Vol] 14.1 g/dL 12.0-15.0 [facility] Blood lymphocytes/100 leukoc ytesOrdered By: KAYLEE COULTER on 05-11-2022 Lymphocytes/100 WBC (Bld) 26.3 % 19-41 [facility] Blood monocytes/100 leukocyt esOrdered By: KAYLEE COULTER on 05-11-2022 Monocytes/100 WBC (Bld) 7.2 % 0-10 [facility] Blood platelet mean volumeOr dered By: KAYLEE COULTER on 05-11-2022 Platelet mean volume (Bld) [Entitic vol] 9.0 fL 6.2-12.0 [facility] Determination of erythrocyte mean corpuscular volume (MCV)Ordered By: KAYLEE COULTER on 05-11-2022 MCV (RBC) [Entitic vol] 97.0 fL 81-99 [facility] Direct bilirubinOrdered By: KAYLEE COULTER on 05-11-2022 Bilirubin.direct [Mass/Vol] 0.10 mg/dL 0.00-0.30 [facility] Erythrocyte sedimentation ra teOrdered By: KAYLEE COULTER on 05-11-2022 ESR (Bld) [Velocity] 8 mm/h 0-30 [facility] Hematocrit Auto (Bld) [Volum e fraction]Ordered By: KAYLEE COULTER on 05-11-2022 Hematocrit (Bld) [Volume fraction] 42.3 % 37-47 [facility] - Chemistry and C hemistry - challengeOrdered By: KAYLEE COULTER on 05-11-2022 ALP [Catalytic activity/Vol] 72 U/L 45-117 [facility] ALT [Catalytic activity/Vol] 27 U/L 13-56 [facility] Globulin (S) [Mass/Vol] 3.6 g/dL 2.2-4.2 [facility] - Hematology and Cell countsOrdered By: KAYLEE COULTER on 05-11-2022 Erythrocyte distribution width (RBC) [Entitic vol] 49.1 fL 35.1-43.9 [facility] Erythrocyte distribution width (RBC) [Ratio] 14.0 % 11.6-14.6 [facility] Immature granulocytes/100 WBC (Bld) 0.800 % 0.0-0.9 [facility] Comment on above: IG% - Immature Granu locytes (promyelocytes, myelocytes and metamyelocytes) > 1% indicates that a LEFT SHIFT is Present. MCH (RBC) [Entitic mass] 32.3 pg 27.0-32.0 [facility] Nucleated RBC/100 WBC (Bld) [Ratio] 0 % 0-5 [facility] MCHC Auto (RBC) [Mass/Vol]Or dered By: KAYLEE COULTER on 05-11-2022 MCHC (RBC) [Mass/Vol] 33.3 g/dL 32-36 [facility] No Panel InformationOrdered By: KAYLEE COULTER on 05-11-2022 Estimated GFR (MDRD) Amer 84 mL/min >60 [facility] Comment on above: GFR Calc Estimated GFR (MDRD) Non-Af Amer 70 mL/min >60 [facility] Comment on above: Non- GFR Calc Platelets bldOrdered By: LORA COULTER on 05-11-2022 Platelets (Bld) [#/Vol] 360 10*3/uL 150-450 [facility] Serum or plasma C reactive p rotein measurement (mass/volume)Ordered By: KAYLEE COULTER on 05-11-2022 CRP [Mass/Vol] 6.44 mg/L 0.0-3.0 [facility] Comment on above: C-Reactive Protein ( CRP) provides useful information for thediagnosis, therapy and monitoring of inflammatory processesand associated diseases. For the evaluation of Relative Riskfor Cardiovascular Disease, a High Sensitivity CRP (HSCRP)should be ordered. Serum or plasma albumin ilana urement (mass/volume)Ordered By: KAYLEE COULTER on 05-11-2022 Albumin [Mass/Vol] 3.6 g/dL 3.2-5.0 [facility] Serum or plasma creatinine m easurement (mass/volume)Ordered By: KAYLEE COULTER on 05-11-2022 Creatinine [Mass/Vol] 0.88 mg/dL 0.55-1.02 [facility] Comment on above: The validity of the calculated GFR & GFRAA in patients over 70 years has not been determined. Clinical correlation is essential. Thin prep Papanicolaou smear with manual screeningOrdered By: KAYLEE COULTER on 05-11-2022 Thin prep Papanicolaou smear with manual screening 19 U/L 15-37 [facility] Absolute lymphocyte countOrd ered By: Dr. Turk on 03-28-2022 Lymphocytes Auto (Unsp spec) [#/Vol] 2.59 10*3/uL 0.83-4.51 [facility] Basophil percentageOrdered B y: Dr. Turk on 03-28-2022 Basophils/100 WBC (Bld) 0.5 % 0-1 [facility] Chloride [Moles/Vol] 108 mmol/L 98-107 [facility] Eosinophils/100 WBC (Bld) 1.1 % 0-5 [facility] Glucose [Mass/Vol] 101 mg/dL 74-106 [facility] Comment on above: Fasting Glucose resu lt from 100 to 125 mg/dL suggests IMPAIRED HOMEOSTASIS per A.D.A. criteria. Neutrophils (Bld) [#/Vol] 5.2 10*3/uL 2.0-7.7 [facility] Neutrophils/100 WBC (Bld) 60.1 % 47-70 [facility] Potassium [Moles/Vol] 3.9 mmol/L 3.5-5.1 [facility] Comment on above: Slight Hemolysis, Re sult may be falsely increased. Sodium [Moles/Vol] 139 mmol/L 136-145 [facility] WBC (Bld) [#/Vol] 8.6 10*3/uL 4.4-11.0 [facility] Blood erythrocytes count (nu mber/volume)Ordered By: Dr. Turk on 03-28-2022 RBC (Bld) [#/Vol] 4.31 10*6/uL 4.2-5.4 [facility] Blood hemoglobin measurement (mass/volume)Ordered By: Dr. Turk on 03-28-2022 Hemoglobin (Bld) [Mass/Vol] 13.8 g/dL 12.0-15.0 [facility] Blood lymphocytes/100 leukoc ytesOrdered By: Dr. Turk on 03-28-2022 Lymphocytes/100 WBC (Bld) 30.3 % 19-41 [facility] Blood monocytes/100 leukocyt esOrdered By: Dr. Turk on 03-28-2022 Monocytes/100 WBC (Bld) 7.2 % 0-10 [facility] Blood platelet mean volumeOr dered By: Dr. Turk on 03-28-2022 Platelet mean volume (Bld) [Entitic vol] 8.4 fL 6.2-12.0 [facility] Determination of erythrocyte mean corpuscular volume (MCV)Ordered By: Dr. Turk on 03-28-2022 MCV (RBC) [Entitic vol] 96.1 fL 81-99 [facility] Hematocrit Auto (Bld) [Volum e fraction]Ordered By: Dr. Turk on 03-28-2022 Hematocrit (Bld) [Volume fraction] 41.4 % 37-47 [facility] - Chemistry and C hemistry - challengeOrdered By: Dr. Turk on 03-28-2022 CO2 [Moles/Vol] 25.0 mmol/L 21.0-32.0 [facility] Urea nitrogen/Creatinine [Mass ratio] 16.6 mg/mg 10-20 [facility] - Hematology and Cell countsOrdered By: Dr. Turk on 03-28-2022 Erythrocyte distribution width (RBC) [Entitic vol] 48.9 fL 35.1-43.9 [facility] Erythrocyte distribution width (RBC) [Ratio] 14.0 % 11.6-14.6 [facility] Immature granulocytes/100 WBC (Bld) 0.800 % 0.0-0.9 [facility] Comment on above: IG% - Immature Granu locytes (promyelocytes, myelocytes and metamyelocytes) > 1% indicates that a LEFT SHIFT is Present. MCH (RBC) [Entitic mass] 32.0 pg 27.0-32.0 [facility] Nucleated RBC/100 WBC (Bld) [Ratio] 0 % 0-5 [facility] MCHC Auto (RBC) [Mass/Vol]Or dered By: Dr. Turk on 03-28-2022 MCHC (RBC) [Mass/Vol] 33.3 g/dL 32-36 [facility] No Panel InformationOrdered By: Dr. Turk on 03-28-2022 Troponin I High Sensitivity 6 pg/mL 3.0-54.0 [facility] Comment on above: Please Note: New [place] t Units and Gender Specific Reference Ranges. For more information see Policy Stat Procedure [place] High Sensitivity Troponin (TNIH) and attachments. Estimated Creatinine Clearance Calc 59.07 ml/min [facility] Estimated GFR (MDRD) Amer 82 mL/min >60 [facility] Comment on above: GFR Calc Estimated GFR (MDRD) Non-Af Amer 67 mL/min >60 [facility] Comment on above: Non- GFR Calc Platelets bldOrdered By: Dr. Turk on 03-28-2022 Platelets (Bld) [#/Vol] 347 10*3/uL 150-450 [facility] Serum or plasma calcium ilana urement (mass/volume)Ordered By: Dr. Turk on 03-28-2022 Calcium [Mass/Vol] 9.1 mg/dL 8.5-10.1 [facility] Serum or plasma creatinine m easurement (mass/volume)Ordered By: Dr. Turk on 03-28-2022 Creatinine [Mass/Vol] 0.90 mg/dL 0.55-1.02 [facility] Comment on above: The validity of the calculated GFR & GFRAA in patients over 70 years has not been determined. Clinical correlation is essential. Serum or plasma urea nitroge n measurement (mass/volume)Ordered By: Dr. Turk on 03-28-2022 Urea nitrogen [Mass/Vol] 15 mg/dL 7-18 [facility] Thin prep Papanicolaou smear with manual screeningOrdered By: Dr. Turk on 03-28-2022 Thin prep Papanicolaou smear with manual screening 6 5-15 [facility] Absolute lymphocyte countOrd ered By: KAYLEE COULTER on 03-21-2022 Lymphocytes Auto (Unsp spec) [#/Vol] 2.70 10*3/uL 0.83-4.51 [facility] Basophil percentageOrdered B y: KAYLEE COULTER on 03-21-2022 Basophils/100 WBC (Bld) 0.6 % 0-1 [facility] Bilirubin [Mass/Vol] 0.20 mg/dL 0.20-1.00 [facility] Comment on above: For patients on eltr ombopag therapy, use of Dimension [place] TBIL is not recommended. Eosinophils/100 WBC (Bld) 1.2 % 0-5 [facility] Neutrophils (Bld) [#/Vol] 5.3 10*3/uL 2.0-7.7 [facility] Neutrophils/100 WBC (Bld) 59.3 % 47-70 [facility] Protein [Mass/Vol] 7.0 g/dL 6.4-8.2 [facility] WBC (Bld) [#/Vol] 8.9 10*3/uL 4.4-11.0 [facility] Blood erythrocytes count (nu mber/volume)Ordered By: KAYLEE COULTER on 03-21-2022 RBC (Bld) [#/Vol] 4.47 10*6/uL 4.2-5.4 [facility] Blood hemoglobin measurement (mass/volume)Ordered By: KAYLEE COULTER on 03-21-2022 Hemoglobin (Bld) [Mass/Vol] 14.1 g/dL 12.0-15.0 [facility] Blood lymphocytes/100 leukoc ytesOrdered By: KAYLEE COULTER on 03-21-2022 Lymphocytes/100 WBC (Bld) 30.4 % 19-41 [facility] Blood monocytes/100 leukocyt esOrdered By: KAYLEE COULTER on 03-21-2022 Monocytes/100 WBC (Bld) 7.7 % 0-10 [facility] Blood platelet mean volumeOr dered By: KAYLEE COULTER on 03-21-2022 Platelet mean volume (Bld) [Entitic vol] 8.8 fL 6.2-12.0 [facility] Determination of erythrocyte mean corpuscular volume (MCV)Ordered By: KAYLEE COULTER on 03-21-2022 MCV (RBC) [Entitic vol] 96.2 fL 81-99 [facility] Direct bilirubinOrdered By: KAYLEE COULTER on 03-21-2022 Bilirubin.direct [Mass/Vol] 0.10 mg/dL 0.00-0.30 [facility] Erythrocyte sedimentation ra teOrdered By: KAYLEE COULTER on 03-21-2022 ESR (Bld) [Velocity] 7 mm/h 0-30 [facility] Hematocrit Auto (Bld) [Volum e fraction]Ordered By: KAYLEE COULTER on 03-21-2022 Hematocrit (Bld) [Volume fraction] 43.0 % 37-47 [facility] - Chemistry and C hemistry - challengeOrdered By: KAYLEE COULTER on 03-21-2022 ALP [Catalytic activity/Vol] 81 U/L 45-117 [facility] ALT [Catalytic activity/Vol] 27 U/L 13-56 [facility] Globulin (S) [Mass/Vol] 3.4 g/dL 2.2-4.2 [facility] - Hematology and Cell countsOrdered By: KAYLEE COULTER on 03-21-2022 Erythrocyte distribution width (RBC) [Entitic vol] 49.5 fL 35.1-43.9 [facility] Erythrocyte distribution width (RBC) [Ratio] 14.1 % 11.6-14.6 [facility] Immature granulocytes/100 WBC (Bld) 0.800 % 0.0-0.9 [facility] Comment on above: IG% - Immature Granu locytes (promyelocytes, myelocytes and metamyelocytes) > 1% indicates that a LEFT SHIFT is Present. MCH (RBC) [Entitic mass] 31.5 pg 27.0-32.0 [facility] Nucleated RBC/100 WBC (Bld) [Ratio] 0 % 0-5 [facility] MCHC Auto (RBC) [Mass/Vol]Or dered By: KAYLEE COULTER on 03-21-2022 MCHC (RBC) [Mass/Vol] 32.8 g/dL 32-36 [facility] No Panel InformationOrdered By: KAYLEE COULTER on 03-21-2022 Estimated GFR (MDRD) Amer 71 mL/min >60 [facility] Comment on above: GFR Calc Estimated GFR (MDRD) Non-Af Amer 59 mL/min >60 [facility] Comment on above: Non- GFR Calc Platelets bldOrdered By: LORA COULTER on 03-21-2022 Platelets (Bld) [#/Vol] 366 10*3/uL 150-450 [facility] Serum or plasma C reactive p rotein measurement (mass/volume)Ordered By: KAYLEE COULTER on 03-21-2022 CRP [Mass/Vol] 6.44 mg/L 0.0-3.0 [facility] Comment on above: C-Reactive Protein ( CRP) provides useful information for thediagnosis, therapy and monitoring of inflammatory processesand associated diseases. For the evaluation of Relative Riskfor Cardiovascular Disease, a High Sensitivity CRP (HSCRP)should be ordered. Serum or plasma albumin ilana urement (mass/volume)Ordered By: KAYLEE COULTER on 03-21-2022 Albumin [Mass/Vol] 3.6 g/dL 3.2-5.0 [facility] Serum or plasma creatinine m easurement (mass/volume)Ordered By: KAYLEE COULTER on 03-21-2022 Creatinine [Mass/Vol] 1.02 mg/dL 0.55-1.02 [facility] Comment on above: The validity of the calculated GFR & GFRAA in patients over 70 years has not been determined. Clinical correlation is essential. Thin prep Papanicolaou smear with manual screeningOrdered By: KAYLEE COULTER on 03-21-2022 Thin prep Papanicolaou smear with manual screening 20 U/L 15-37 [facility] Absolute lymphocyte countOrd ered By: Dr. Pinto on 11-23-2021 Lymphocytes Auto (Unsp spec) [#/Vol] 2.49 10*3/uL 0.83-4.51 [facility] Basophil percentageOrdered B y: Dr. Pinto on 11-23-2021 Basophils/100 WBC (Bld) 0.6 % 0-1 [facility] Bilirubin [Mass/Vol] 0.40 mg/dL 0.20-1.00 [facility] Comment on above: For patients on eltr ombopag therapy, use of Dim[employer] [place] TBIL is not recommended. Chloride [Moles/Vol] 106 mmol/L 98-107 [facility] Eosinophils/100 WBC (Bld) 0.5 % 0-5 [facility] Glucose [Mass/Vol] 87 mg/dL 74-106 [facility] Neutrophils (Bld) [#/Vol] 5.4 10*3/uL 2.0-7.7 [facility] Neutrophils/100 WBC (Bld) 61.6 % 47-70 [facility] Potassium [Moles/Vol] 3.9 mmol/L 3.5-5.1 [facility] Protein [Mass/Vol] 7.4 g/dL 6.4-8.2 [facility] Sodium [Moles/Vol] 140 mmol/L 136-145 [facility] WBC (Bld) [#/Vol] 8.8 10*3/uL 4.4-11.0 [facility] Blood erythrocytes count (nu mber/volume)Ordered By: Dr. Pinto on 11-23-2021 RBC (Bld) [#/Vol] 4.37 10*6/uL 4.2-5.4 [facility] Blood hemoglobin measurement (mass/volume)Ordered By: Dr. Pinto on 11-23-2021 Hemoglobin (Bld) [Mass/Vol] 13.7 g/dL 12.0-15.0 [facility] Blood lymphocytes/100 leukoc ytesOrdered By: Dr. Pinto on 11-23-2021 Lymphocytes/100 WBC (Bld) 28.4 % 19-41 [facility] Blood monocytes/100 leukocyt esOrdered By: Dr. Pinto on 11-23-2021 Monocytes/100 WBC (Bld) 8.3 % 0-10 [facility] Blood platelet mean volumeOr dered By: Dr. Pinto on 11-23-2021 Platelet mean volume (Bld) [Entitic vol] 8.8 fL 6.2-12.0 [facility] Determination of erythrocyte mean corpuscular volume (MCV)Ordered By: Dr. Pinto on 11-23-2021 MCV (RBC) [Entitic vol] 96.8 fL 81-99 [facility] Direct bilirubinOrdered By: Dr. Pinto on 11-23-2021 Bilirubin.direct [Mass/Vol] 0.10 mg/dL 0.00-0.30 [facility] Erythrocyte sedimentation ra teOrdered By: Dr. Pinto on 11-23-2021 ESR (Bld) [Velocity] 16 mm/h 0-30 [facility] Hematocrit Auto (Bld) [Volum e fraction]Ordered By: Dr. Pinto on 11-23-2021 Hematocrit (Bld) [Volume fraction] 42.3 % 37-47 [facility] Laboratory - Chemistry and C hemistry - challengeOrdered By: Dr. Pinto on 11-23-2021 ALP [Catalytic activity/Vol] 87 U/L 45-117 [facility] ALT [Catalytic activity/Vol] 24 U/L 13-56 [facility] CO2 [Moles/Vol] 26.0 mmol/L 21.0-32.0 [facility] Globulin (S) [Mass/Vol] 3.8 g/dL 2.2-4.2 [facility] Urea nitrogen/Creatinine [Mass ratio] 18.0 mg/mg 10-20 [facility] Laboratory - Hematology and Cell countsOrdered By: Dr. Pinto on 11-23-2021 Erythrocyte distribution width (RBC) [Entitic vol] 48.9 fL 35.1-43.9 [facility] Erythrocyte distribution width (RBC) [Ratio] 13.6 % 11.6-14.6 [facility] Immature granulocytes/100 WBC (Bld) 0.600 % 0.0-0.9 [facility] Comment on above: IG% - Immature Granu locytes (promyelocytes, myelocytes and metamyelocytes) > 1% indicates that a LEFT SHIFT is Present. MCH (RBC) [Entitic mass] 31.4 pg 27.0-32.0 [facility] Nucleated RBC/100 WBC (Bld) [Ratio] 0 % 0-5 [facility] MCHC Auto (RBC) [Mass/Vol]Or dered By: Dr. Pinto on 11-23-2021 MCHC (RBC) [Mass/Vol] 32.4 g/dL 32-36 [facility] No Panel InformationOrdered By: Dr. Pinto on 11-23-2021 Estimated GFR (MDRD) Amer 78 mL/min >60 [facility] Comment on above: GFR Calc Estimated GFR (MDRD) Non-Af Amer 64 mL/min >60 [facility] Comment on above: Non- GFR Calc Thyroid Stimulating Hormone (TSH) 2.99 uIU/mL 0.358-3.74 [facility] Platelets bldOrdered By: Dr. Pinto on 11-23-2021 Platelets (Bld) [#/Vol] 364 10*3/uL 150-450 [facility] Serum or plasma C reactive p rotein measurement (mass/volume)Ordered By: Dr. Pinto on 11-23-2021 CRP [Mass/Vol] 4.62 mg/L 0.0-3.0 [facility] Comment on above: C-Reactive Protein ( CRP) provides useful information for thediagnosis, therapy and monitoring of inflammatory processesand associated diseases. For the evaluation of Relative Riskfor Cardiovascular Disease, a High Sensitivity CRP (HSCRP)should be ordered. Serum or plasma albumin ilana urement (mass/volume)Ordered By: Dr. Pinto on 11-23-2021 Albumin [Mass/Vol] 3.6 g/dL 3.2-5.0 [facility] Serum or plasma albumin/glob ulin mass ratioOrdered By: Dr. Pinto on 11-23-2021 Albumin/Globulin [Mass ratio] 0.9 {ratio} 0.9-2.4 [facility] Serum or plasma calcium ilana urement (mass/volume)Ordered By: Dr. Pinto on 11-23-2021 Calcium [Mass/Vol] 9.3 mg/dL 8.5-10.1 [facility] Serum or plasma creatinine m easurement (mass/volume)Ordered By: Dr. Pinto on 11-23-2021 Creatinine [Mass/Vol] 0.94 mg/dL 0.55-1.02 [facility] Comment on above: The validity of the calculated GFR & GFRAA in patients over 70 years has not been determined. Clinical correlation is essential. Serum or plasma urea nitroge n measurement (mass/volume)Ordered By: Dr. Pinto on 11-23-2021 Urea nitrogen [Mass/Vol] 17 mg/dL 7-18 [facility] Thin prep Papanicolaou smear with manual screeningOrdered By: Dr. Pinto on 11-23-2021 Thin prep Papanicolaou smear with manual screening 15 U/L 15-37 [facility] Thin prep Papanicolaou smear with manual screening 8 5-15 [facility] Laboratory - Microbiology an d Antimicrobial susceptibilityon 11-03-2021 SARS-CoV-2 (COVID-19) RNA MALIA+probe Ql (Unsp spec) Not detected [facility] Work Phone: [phone] Absolute lymphocyte counton 08-08-2021 Lymphocytes Auto (Unsp spec) [#/Vol] 2.53 10*3/uL 0.83-4.51 [facility] Work Phone: [phone] Basophil percentageon 2021 Basophils/100 WBC (Bld) 0.5 % 0-1 [facility] Work Phone: [phone] Bilirubin [Mass/Vol] 0.30 mg/dL 0.20-1.00 [facility] Work Phone: [phone] Comment on above: For patients on eltr ombopag therapy, use of [employer] [place] TBIL is not recommended. Eosinophils/100 WBC (Bld) 0.9 % 0-5 [facility] Work Phone: [phone] Neutrophils (Bld) [#/Vol] 4.8 10*3/uL 2.0-7.7 [facility] Work Phone: Neutrophils/100 WBC (Bld) 59.0 % 47-70 [facility] Work Phone: Protein [Mass/Vol] 7.2 g/dL 6.4-8.2 [facility] Work Phone: WBC (Bld) [#/Vol] 8.1 10*3/uL 4.4-11.0 [facility] Work Phone: Blood erythrocytes count (nu mber/volume)on 08-08-2021 RBC (Bld) [#/Vol] 4.56 10*6/uL 4.2-5.4 [facility] Work Phone: Blood hemoglobin measurement (mass/volume)on 08-08-2021 Hemoglobin (Bld) [Mass/Vol] 14.6 g/dL 12.0-15.0 [facility] Work Phone: Blood lymphocytes/100 leukoc yteson 08-08-2021 Lymphocytes/100 WBC (Bld) 31.2 % 19-41 [facility] Work Phone: Blood monocytes/100 leukocyt eson 08-08-2021 Monocytes/100 WBC (Bld) 7.8 % 0-10 [facility] Work Phone: Blood platelet mean volumeon 08-08-2021 Platelet mean volume (Bld) [Entitic vol] 8.9 fL 6.2-12.0 [facility] Work Phone: Determination of erythrocyte mean corpuscular volume (MCV)on 08-08-2021 MCV (RBC) [Entitic vol] 92.5 fL 81-99 [facility] Work Phone: Direct bilirubinon Bilirubin.direct [Mass/Vol] 0.13 mg/dL 0.00-0.30 [facility] Work Phone: Erythrocyte sedimentation ra harvey 08-08-2021 ESR (Bld) [Velocity] 22 mm[facility]h 0-[facility]: Hematocrit Auto (Bld) [Volum e fraction]on 08-08-2021 Hematocrit (Bld) [Volume fraction] 42.2 % 37-47 [facility] Work Phone: Laboratory - Chemistry and C hemistry - challengeon 08-08-2021 ALP [Catalytic activity/Vol] 76 U/L 45-117 [facility] Work Phone: [phone] ALT [Catalytic activity/Vol] 24 U/L 13-56 [facility] Work Phone: [phone] Globulin (S) [Mass/Vol] 3.6 g/dL 2.2-4.2 [facility] Work Phone: Laboratory - Hematology and Cell countson 08-08-2021 Erythrocyte distribution width (RBC) [Entitic vol] 45.4 fL 35.1-43.9 [facility] Work Phone: [phone] Erythrocyte distribution width (RBC) [Ratio] 13.4 % 11.6-14.6 [facility] Work Phone: [phone] Immature granulocytes/100 WBC (Bld) 0.600 % 0.0-0.9 [facility] Work Phone: Comment on above: IG% - Immature Granu locytes (promyelocytes, myelocytes and metamyelocytes) > 1% indicates that a LEFT SHIFT is Present. MCH (RBC) [Entitic mass] 32.0 pg 27.0-32.0 [facility] Work Phone: Nucleated RBC/100 WBC (Bld) [Ratio] 0 % 0-5 [facility] Work Phone: [phone] MCHC Auto (RBC) [Mass/Vol]on 08-08-2021 MCHC (RBC) [Mass/Vol] 34.6 g/dL 32-36 [facility] Work Phone: No Panel Informationon 08-08 Estimated GFR (MDRD) Amer 79 mL/min >60 [facility] Work Phone: Comment on above: GFR Calc Estimated GFR (MDRD) Non-Af Amer 65 mL/min >60 [facility] Work Phone: Comment on above: Non- GFR Calc Platelets bldon 08-08-2021 Platelets (Bld) [#/Vol] 360 10*3/uL 150-450 [facility] Work Phone: Serum or plasma C reactive p rotein measurement (mass/volume)on 08-08-2021 CRP [Mass/Vol] 6.48 mg/L 0.0-3.0 [facility] Work Phone: Comment on above: C-Reactive Protein ( CRP) provides useful information for thediagnosis, therapy and monitoring of inflammatory processesand associated diseases. For the evaluation of Relative Riskfor Cardiovascular Disease, a High Sensitivity CRP (HSCRP)should be ordered. Serum or plasma albumin ilana urement (mass/volume)on 08-08-2021 Albumin [Mass/Vol] 3.6 g/dL 3.2-5.0 [facility] Work Phone: Serum or plasma creatinine m easurement (mass/volume)on 08-08-2021 Creatinine [Mass/Vol] 0.93 mg/dL 0.55-1.02 [facility] Work Phone: Comment on above: The validity of the calculated GFR & GFRAA in patients over 70 years has not been determined. Clinical correlation is essential. Thin prep Papanicolaou smear with manual screeningon 08-08-2021 Thin prep Papanicolaou smear with manual screening 19 U/L 15-37 [facility] Work Phone: Laboratory - Microbiology an d Antimicrobial susceptibilityon 06-26-2021 SARS-CoV-2 (COVID-19) RNA MALIA+probe Ql (Unsp spec) Detected [facility] Work Phone: No Panel Informationon 06-26 Influenza Types A,B Rapid (Clinic) Not detected [facility] Work Phone: No Panel Informationon 05-28 Estimated GFR (MDRD) Amer 86 mL/min >60 [facility] Work Phone: Comment on above: GFR Calc Estimated GFR (MDRD) Non-Af Amer 71 mL/min >60 [facility] Work Phone: Comment on above: Non- GFR Calc Serum or plasma creatinine m easurement (mass/volume)on 05-28-2021 Creatinine [Mass/Vol] 0.86 mg/dL 0.55-1.02 [facility] Work Phone: Comment on above: The validity of the calculated GFR & GFRAA in patients over 70 years has not been determined. Clinical correlation is essential. Absolute lymphocyte counton 05-06-2021 Lymphocytes Auto (Unsp spec) [#/Vol] 2.53 10*3/uL 0.83-4.51 [facility] Work Phone: Basophil percentageon 2021 Basophils/100 WBC (Bld) 0.5 % 0-1 [facility] Work Phone: Bilirubin [Mass/Vol] 0.20 mg/dL 0.20-1.00 [facility] Work Phone: Comment on above: For patients on eltr ombopag therapy, use of [employer] [place] TBIL is not recommended. Eosinophils/100 WBC (Bld) 0.9 % 0-5 [facility] Work Phone: [phone] Neutrophils (Bld) [#/Vol] 6.3 10*3/uL 2.0-7.7 [facility] Work Phone: [phone] Neutrophils/100 WBC (Bld) 64.1 % 47-70 [facility] Work Phone: [phone] Protein [Mass/Vol] 7.3 g/dL 6.4-8.2 [facility] Work Phone: WBC (Bld) [#/Vol] 9.8 10*3/uL 4.4-11.0 [facility] Work Phone: [phone] Blood erythrocytes count (nu mber/volume)on 05-06-2021 RBC (Bld) [#/Vol] 4.37 10*6/uL 4.2-5.4 [facility] Work Phone: Blood hemoglobin measurement (mass/volume)on 05-06-2021 Hemoglobin (Bld) [Mass/Vol] 13.9 g/dL 12.0-15.0 [facility] Work Phone: Blood lymphocytes/100 leukoc yteson 05-06-2021 Lymphocytes/100 WBC (Bld) 25.9 % 19-41 [facility] Work Phone: Blood monocytes/100 leukocyt eson 05-06-2021 Monocytes/100 WBC (Bld) 7.4 % 0-10 [facility] Work Phone: [phone] Blood platelet mean volumeon 05-06-2021 Platelet mean volume (Bld) [Entitic vol] 8.4 fL 6.2-12.0 [facility] Work Phone: Determination of erythrocyte mean corpuscular volume (MCV)on 05-06-2021 MCV (RBC) [Entitic vol] 90.6 fL 81-99 [facility] Work Phone: [phone] Direct bilirubinon 2 Bilirubin.direct [Mass/Vol] 0.12 mg/dL 0.00-0.30 [facility] Work Phone: Erythrocyte sedimentation ra harvey 05-06-2021 ESR (Bld) [Velocity] 14 mm/h 0-30 [facility] Work Phone: Hematocrit Auto (Bld) [Volum e fraction]on 05-06-2021 Hematocrit (Bld) [Volume fraction] 39.6 % 37-47 [facility] Work Phone: Laboratory - Chemistry and C hemistry - challengeon 05-06-2021 ALP [Catalytic activity/Vol] 83 U/L 45-117 [facility] Work Phone: ALT [Catalytic activity/Vol] 35 U/L 13-56 [facility] Work Phone: Globulin (S) [Mass/Vol] 3.6 g/dL 2.2-4.2 [facility] Work Phone: Laboratory - Hematology and Cell countson 05-06-2021 Erythrocyte distribution width (RBC) [Entitic vol] 44.0 fL 35.1-43.9 [facility] Work Phone: Erythrocyte distribution width (RBC) [Ratio] 13.3 % 11.6-14.6 [facility] Work Phone: Immature granulocytes/100 WBC (Bld) 1.200 % 0.0-0.9 [facility] Work Phone: Comment on above: IG% - Immature Granu locytes (promyelocytes, myelocytes and metamyelocytes) > 1% indicates that a LEFT SHIFT is Present. MCH (RBC) [Entitic mass] 31.8 pg 27.0-32.0 [facility] Work Phone: Nucleated RBC/100 WBC (Bld) [Ratio] 0 % 0-5 [facility] Work Phone: MCHC Auto (RBC) [Mass/Vol]on 05-06-2021 MCHC (RBC) [Mass/Vol] 35.1 g/dL 32-36 [facility] Work Phone: No Panel Informationon 05-06 Estimated GFR (MDRD) Amer 63 mL/min >60 [facility] Work Phone: Comment on above: GFR Calc Estimated GFR (MDRD) Non-Af Amer 52 mL/min >60 [facility] Work Phone: Comment on above: Non- GFR Calc Platelets bldon 05-06-2021 Platelets (Bld) [#/Vol] 328 10*3/uL 150-450 [facility] Work Phone: Serum or plasma C reactive p rotein measurement (mass/volume)on 05-06-2021 CRP [Mass/Vol] 8.93 mg/L 0.0-3.0 [facility] Work Phone: Comment on above: C-Reactive Protein ( CRP) provides useful information for thediagnosis, therapy and monitoring of inflammatory processesand associated diseases. For the evaluation of Relative Riskfor Cardiovascular Disease, a High Sensitivity CRP (HSCRP)should be ordered. Serum or plasma albumin ilana urement (mass/volume)on 05-06-2021 Albumin [Mass/Vol] 3.7 g/dL 3.2-5.0 [facility] Work Phone: Serum or plasma creatinine m easurement (mass/volume)on 05-06-2021 Creatinine [Mass/Vol] 1.13 mg/dL 0.55-1.02 [facility] Work Phone: Comment on above: The validity of the calculated GFR & GFRAA in patients over 70 years has not been determined. Clinical correlation is essential. Thin prep Papanicolaou smear with manual screeningon 05-06-2021 Thin prep Papanicolaou smear with manual screening 19 U/L 15-37 [facility] Work Phone: No Panel Informationon 04-26 Respiratory Panel (PCR) [facility] Work Phone: Laboratory - Microbiology an d Antimicrobial susceptibilityon 04-23-2021 SARS-CoV-2 (COVID-19) RNA MALIA+probe Ql (Unsp spec) Not detected [facility] Work Phone: No Panel Informationon 04-23 Influenza Types A,B Rapid (Clinic) Not detected [facility] Work Phone: Laboratory - Microbiology an d Antimicrobial susceptibilityon 03-04-2021 SARS-CoV-2 (COVID-19) RNA MALIA+probe Ql (Unsp spec) Not detected [facility] Work Phone: Absolute lymphocyte counton 02-02-2021 Lymphocytes Auto (Unsp spec) [#/Vol] 2.06 10*3/uL 0.83-4.51 [facility] Work Phone: Basophil percentageon 2020 Bilirubin [Mass/Vol] 0.20 mg/dL 0.20-1.00 [facility] Work Phone: Comment on above: For patients on eltr ombopag therapy, use of [employer] [place] TBIL is not recommended. Eosinophils/100 WBC (Bld) 0.8 % 0-5 [facility] Work Phone: Neutrophils (Bld) [#/Vol] 5.5 10*3/uL 2.0-7.7 [facility] Work Phone: Protein [Mass/Vol] 7.3 g/dL 6.4-8.2 [facility] Work Phone: WBC (Bld) [#/Vol] 8.4 10*3/uL 4.4-11.0 [facility] Work Phone: Blood erythrocytes count (nu mber/volume)on 02-02-2021 RBC (Bld) [#/Vol] 4.45 10*6/uL 4.2-5.4 [facility] Work Phone: Blood hemoglobin measurement (mass/volume)on 02-02-2021 Hemoglobin (Bld) [Mass/Vol] 13.7 g/dL 12.0-15.0 [facility] Work Phone: Blood lymphocytes/100 leukoc yteson 02-02-2021 Lymphocytes/100 WBC (Bld) 24.5 % 19-41 [facility] Work Phone: Blood monocytes/100 leukocyt eson 02-02-2021 Monocytes/100 WBC (Bld) 7.1 % 0-10 [facility] Work Phone: Blood platelet mean volumeon 02-02-2021 Platelet mean volume (Bld) [Entitic vol] 8.8 fL 6.2-12.0 [facility] Work Phone: Determination of erythrocyte mean corpuscular volume (MCV)on 02-02-2021 MCV (RBC) [Entitic vol] 93.7 fL 81-99 [facility] Work Phone: Direct bilirubinon Bilirubin.direct [Mass/Vol] 0.06 mg/dL 0.00-0.30 [facility] Work Phone: Erythrocyte sedimentation ra harvey 02-02-2021 ESR (Bld) [Velocity] 11 mm/h 0-30 [facility] Work Phone: [phone] Hematocrit Auto (Bld) [Volum e fraction]on 02-02-2021 Hematocrit (Bld) [Volume fraction] 41.7 % 37-47 [facility] Work Phone: Laboratory - Chemistry and C hemistry - challengeon 02-02-2021 ALP [Catalytic activity/Vol] 77 U/L 45-117 [facility] Work Phone: ALT [Catalytic activity/Vol] 24 U/L 13-56 [facility] Work Phone: Globulin (S) [Mass/Vol] 3.7 g/dL 2.2-4.2 [facility] Work Phone: [phone] Laboratory - Hematology and Cell countson 02-02-2021 Basophils/100 WBC (Unsp spec) 0.4 % 0-1 [facility] Work Phone: Erythrocyte distribution width (RBC) [Entitic vol] 45.1 fL 35.1-43.9 [facility] Work Phone: Erythrocyte distribution width (RBC) [Ratio] 13.2 % 11.6-14.6 [facility] Work Phone: Immature granulocytes/100 WBC (Bld) 1.400 % 0.0-0.9 [facility] Work Phone: [phone] Comment on above: IG% - Immature Granu locytes (promyelocytes, myelocytes and metamyelocytes) > 1% indicates that a LEFT SHIFT is Present. MCH (RBC) [Entitic mass] 30.8 pg 27.0-32.0 [facility] Work Phone: Neutrophils/100 WBC (Bld) 65.8 % 47-70 [facility] Work Phone: Nucleated RBC/100 WBC (Bld) [Ratio] 0 % 0-5 [facility] Work Phone: MCHC Auto (RBC) [Mass/Vol]on 02-02-2021 MCHC (RBC) [Mass/Vol] 32.9 g/dL 32-36 [facility] Work Phone: No Panel Informationon 02-02 Estimated GFR (MDRD) Amer 81 mL/min >60 [facility] Work Phone: Comment on above: GFR Calc Estimated GFR (MDRD) Non-Af Amer 67 mL/min >60 [facility] Work Phone: Comment on above: Non- GFR Calc Platelets bldon 02-02-2021 Platelets (Bld) [#/Vol] 334 10*3/uL 150-450 [facility] Work Phone: Serum or plasma C reactive p rotein measurement (mass/volume)on 02-02-2021 CRP [Mass/Vol] 3.63 mg/L 0.0-3.0 [facility] Work Phone: Comment on above: C-Reactive Protein ( CRP) provides useful information for thediagnosis, therapy and monitoring of inflammatory processesand associated diseases. For the evaluation of Relative Riskfor Cardiovascular Disease, a High Sensitivity CRP (HSCRP)should be ordered. Serum or plasma albumin ilana urement (mass/volume)on 02-02-2021 Albumin [Mass/Vol] 3.6 g/dL 3.2-5.0 [facility] Work Phone: Serum or plasma creatinine m easurement (mass/volume)on 02-02-2021 Creatinine [Mass/Vol] 0.91 mg/dL 0.55-1.02 [facility] Work Phone: Comment on above: The validity of the calculated GFR & GFRAA in patients over 70 years has not been determined. Clinical correlation is essential. Thin prep Papanicolaou smear with manual screeningon 02-02-2021 Thin prep Papanicolaou smear with manual screening 14 U/L 15-37 [facility] Work Phone: Liver ultrasound attenuation by transient elastography [facility] No Panel Information Respiratory Panel (PCR) [facility] Work Phone: Vital Signs Date Time Vital Sign Value Performing Clinician Facility 05-29-2024 12:58-0400 Body height 165.1 cm Summer Funez MD Work Phone: [facility] 05-29-2024 12:58-0400 Body mass index (BMI) [Ratio] 39.6 kg/m2 Summer Funez MD Work Phone: [facility] 05-29-2024 12:58-0400 Body temperature 98.1 [degF] Summer Funez MD Work Phone: [facility] 05-29-2024 12:58-0400 Body weight 107.95 kg Summer Funez MD Work Phone: [facility] 05-29-2024 12:58-0400 Diastolic blood pressure 91 mm[Hg] Summer Funez MD Work Phone: [facility] 05-29-2024 12:58-0400 Heart rate 68 /min Summer Funez MD Work Phone: [facility] 05-29-2024 12:58-0400 Respiratory rate 18 /min Summer Funez MD Work Phone: [facility] 05-29-2024 12:58-0400 SaO2% (BldA) [Mass fraction] 93 % Summer Funez MD Work Phone: [facility] 05-29-2024 12:58-0400 Systolic blood pressure 147 mm[Hg] Summer Funez MD Work Phone: [facility] 05-19-2024 08:32-0400 Body mass index (BMI) [Ratio] 38.9 kg/m2 Summer Funez MD Work Phone: [facility] 05-19-2024 08:32-0400 Body temperature 97.4 [degF] Summer Funez MD Work Phone: [facility] 05-19-2024 08:32-0400 Body weight 106.14 kg Summer Funez MD Work Phone: [facility] 05-19-2024 08:32-0400 Diastolic blood pressure 79 mm[Hg] Summer Funez MD Work Phone: [facility] 05-19-2024 08:32-0400 Heart rate 75 /min Summer Funez MD Work Phone: [facility] 05-19-2024 08:32-0400 Respiratory rate 20 /min Summer Funez MD Work Phone: [facility] 05-19-2024 08:32-0400 SaO2% (BldA) [Mass fraction] 97 % Summer Funez MD Work Phone: [facility] 05-19-2024 08:32-0400 Systolic blood pressure 117 mm[Hg] Summer Funez MD Work Phone: [facility] 04-28-2024 11:06-0400 Body height 165.1 cm Summer Funez MD Work Phone: [facility] 04-28-2024 11:06-0400 Body mass index (BMI) [Ratio] 39.3 kg/m2 Summer Funez MD Work Phone: [facility] 04-28-2024 11:06-0400 Body weight 107.16 kg Summer Funez MD Work Phone: [facility] 04-28-2024 11:06-0400 Diastolic blood pressure 70 mm[Hg] Summer Funez MD Work Phone: [facility] 04-28-2024 11:06-0400 Heart rate 72 /min Summer Funez MD Work Phone: [facility] 04-28-2024 11:06-0400 Respiratory rate 18 /min Summer Funez MD Work Phone: [facility] 04-28-2024 11:06-0400 SaO2% (BldA) [Mass fraction] 96 % Summer Funez MD Work Phone: [facility] 04-28-2024 11:06-0400 Systolic blood pressure 123 mm[Hg] Summer Funez MD Work Phone: [facility] 04-07-2024 09:08-0500 Body temperature 98.9 [degF] Summer Funez MD Work Phone: [facility] 04-07-2024 09:08-0500 Diastolic blood pressure 76 mm[Hg] Summer Funez MD Work Phone: [facility] 04-07-2024 09:08-0500 Heart rate 82 /min Summer Funez MD Work Phone: [facility] 04-07-2024 09:08-0500 Respiratory rate 18 /min Summer Funez MD Work Phone: [facility] 04-07-2024 09:08-0500 SaO2% (BldA) [Mass fraction] 96 % Summer Funez MD Work Phone: [facility] 04-07-2024 09:08-0500 Systolic blood pressure 91 mm[Hg] Summer Funez MD Work Phone: [facility] 04-07-2024 07:57-0500 Body mass index (BMI) [Ratio] 38.5 kg/m2 Summer Funez MD Work Phone: [facility] 04-07-2024 07:57-0500 Body weight 104.9 kg Summer Funez MD Work Phone: [facility] 04-01-2024 11:12-0500 Body mass index (BMI) [Ratio] 38.9 kg/m2 Summer Fnuez MD Work Phone: [facility] 04-01-2024 11:12-0500 Body weight 106.31 kg Summer Funez MD Work Phone: [facility] 01-12-2024 08:31-0500 Body mass index (BMI) [Ratio] 36.6 kg/m2 Summer Funez MD Work Phone: [facility] 01-12-2024 08:31-0500 Body temperature 98.7 [degF] Summer Funez MD Work Phone: [facility] 01-12-2024 08:31-0500 Body weight 99.84 kg Summer Funez MD Work Phone: [facility] 01-12-2024 08:31-0500 Diastolic blood pressure 80 mm[Hg] Summer Funez MD Work Phone: [facility] 01-12-2024 08:31-0500 Heart rate 97 /min Summer Funez MD Work Phone: [facility] 01-12-2024 08:31-0500 SaO2% (BldA) [Mass fraction] 97 % Summer Funez MD Work Phone: [facility] 01-12-2024 08:31-0500 Systolic blood pressure 130 mm[Hg] Summer Funez MD Work Phone: [facility] 01-07-2024 08:00-0500 Body temperature 97.8 [degF] Summer Funez MD Work Phone: [facility] 01-07-2024 08:00-0500 Diastolic blood pressure 70 mm[Hg] Summer Funez MD Work Phone: [facility] 01-07-2024 08:00-0500 Heart rate 74 /min Summer Funez MD Work Phone: [facility] 01-07-2024 08:00-0500 Respiratory rate 18 /min Summer Funez MD Work Phone: [facility] 01-07-2024 08:00-0500 SaO2% (BldA) [Mass fraction] 95 % Summer Funze MD Work Phone: [facility] 01-07-2024 08:00-0500 Systolic blood pressure 98 mm[Hg] Summer Funez MD Work Phone: [facility] 01-07-2024 06:03-0500 Body mass index (BMI) [Ratio] 37 kg/m2 Summer Funez MD Work Phone: [facility] 01-07-2024 06:03-0500 Body weight 101 kg Summer Funez MD Work Phone: [facility] 05-09-2023 05:51-0400 Body height 165.[address] Leon Pinto Work Phone: [facility] 05-09-2023 05:51-0400 Body mass index (BMI) [Ratio] 38.9 kg/m2 Dr. Leon Pinto Work Phone: [facility] 05-09-2023 05:51-0400 Body temperature 97.2 [degF] Dr. Leon Pinto Work Phone: [facility] 05-09-2023 05:51-0400 Body weight 106.[address] Leon Pinto Work Phone: [facility] 05-09-2023 05:51-0400 Diastolic blood pressure 91 mm[Hg] Dr. Leon Pinto Work Phone: [facility] 05-09-2023 05:51-0400 Heart rate 95 /min Dr. Leon Pinto Work Phone: [facility] 05-09-2023 05:51-0400 Respiratory rate 20 /min Dr. Leon Pinto Work Phone: [facility] 05-09-2023 05:51-0400 SaO2% (BldA) [Mass fraction] 95 % Dr. eLon Pinto Work Phone: [facility] 05-09-2023 05:51-0400 Systolic blood pressure 131 mm[Hg] Dr. Leon Pinto Work Phone: [facility] 05-04-2023 11:12-0400 Diastolic blood pressure 70 mm[Hg] Sangeetha Silva MD Work Phone: [facility] 05-04-2023 11:12-0400 Heart rate 65 /min Sangeetha Silva MD Work Phone: [facility] 05-04-2023 11:12-0400 Respiratory rate 18 /min Sangeetha Silva MD Work Phone: [facility] 05-04-2023 11:12-0400 SaO2% (BldA) [Mass fraction] 94 % Sangeetha Silva MD Work Phone: [facility] 05-04-2023 11:12-0400 Systolic blood pressure 127 mm[Hg] Sangeetha Silva MD Work Phone: [facility] 05-04-2023 10:06-0400 Body temperature 97.81 [degF] Sangeetha Silva MD Work Phone: [facility] 05-04-2023 10:06-0400 Body weight 110.7 kg Sangeetha Silva MD Work Phone: [facility] 04-18-2023 09:31-0500 Body height 165.1 cm Phyllis Kalka PA-C Work Phone: [facility] 04-18-2023 09:31-0500 Body weight 110.68 kg Phyllis Kalka PA-C Work Phone: [facility] 04-18-2023 09:31-0500 Diastolic blood pressure 76 mm[Hg] Phyllis Kalka PA-C Work Phone: [facility] 04-18-2023 09:31-0500 Heart rate 74 /min Phyllis Kalka PA-C Work Phone: [facility] 04-18-2023 09:31-0500 Systolic blood pressure 132 mm[Hg] Phyllis Kalka PA-C Work Phone: [facility] 10-25-2022 09:36-0400 Body height 165.[address] Leon Pinto Work Phone: [facility] 10-25-2022 09:36-0400 Body mass index (BMI) [Ratio] 41.1 kg/m2 Dr. Leon Pinto Work Phone: [facility] 10-25-2022 09:36-0400 Body weight 112.[address] Leon Pinto Work Phone: [facility] 08-03-2022 09:19-0400 Body height 165.[address] Leon Pinto Work Phone: [facility] 08-03-2022 09:19-0400 Body mass index (BMI) [Ratio] 40.5 kg/m2 Dr. Leon Pinto Work Phone: [facility] 08-03-2022 09:19-0400 Body temperature 97.7 [degF] Dr. Leon Pinto Work Phone: [facility] 08-03-2022 09:19-0400 Body weight 110.[address] Leon Pinto Work Phone: [facility] 08-03-2022 09:19-0400 Diastolic blood pressure 90 mm[Hg] Dr. Leon Pinto Work Phone: 9(210)925-891397 [place] [address] 08-03-2022 09:19-0400 Heart rate 93 /min Dr. Leon Pinto Work Phone: 6(767)607-175797 [place] [address] 08-03-2022 09:19-0400 Respiratory rate 16 /min Dr. Leon Pinto Work Phone: [facility] 08-03-2022 09:19-0400 SaO2% (BldA) [Mass fraction] 95 % Dr. Leon Pinto Work Phone: 5(742)672-030497 [place] [address] 08-03-2022 09:19-0400 Systolic blood pressure 140 mm[Hg] Dr. Leon Pinto Work Phone: 4(498)057-124597 [place] [address] 05-11-2022 07:51-0400 Body height 165.[address] Leon Pinto Work Phone: [facility] 05-11-2022 07:51-0400 Body mass index (BMI) [Ratio] 42.5 kg/m2 Dr. Leon Pinto Work Phone: 3(617)958-335097 [place] [address] 05-11-2022 07:51-0400 Body temperature 97.8 [degF] Dr. Leon Pinto Work Phone: 7(798)332-475397 [place] [address] 05-11-2022 07:51-0400 Body weight 116.[address] Leon Pinto Work Phone: 9(435)618-647197 [place] [address] 05-11-2022 07:51-0400 Diastolic blood pressure 65 mm[Hg] Dr. Leon Pinto Work Phone: [facility] 05-11-2022 07:51-0400 Heart rate 92 /min Dr. Leon Pinto Work Phone: [facility] 05-11-2022 07:51-0400 Respiratory rate 18 /min Dr. Leon Pinto Work Phone: [facility] 05-11-2022 07:51-0400 SaO2% (BldA) [Mass fraction] 95 % Dr. Leon Pinto Work Phone: [facility] 05-11-2022 07:51-0400 Systolic blood pressure 136 mm[Hg] Dr. Leon Pinto Work Phone: [facility] 03-28-2022 21:17-0500 Body temperature 97 [degF] Dr. Leon Pinto Work Phone: [facility] 03-28-2022 21:17-0500 Diastolic blood pressure 76 mm[Hg] Dr. Leon Pinto Work Phone: [facility] 03-28-2022 21:17-0500 Heart rate 64 /min Dr. Leon Pinto Work Phone: [facility] 03-28-2022 21:17-0500 Respiratory rate 18 /min Dr. Leon Pinto Work Phone: [facility] 03-28-2022 21:17-0500 SaO2% (BldA) [Mass fraction] 99 % Dr. Leon Pinto Work Phone: [facility] 03-28-2022 21:17-0500 Systolic blood pressure 138 mm[Hg] Dr. Leon Pinto Work Phone: [facility] 03-28-2022 17:58-0500 Body height 165.[address] Leon Pinto Work Phone: [facility] 03-28-2022 17:58-0500 Body mass index (BMI) [Ratio] 42.7 kg/m2 Dr. Leon Pinto Work Phone: [facility] 03-28-2022 17:58-0500 Body weight 116.[address] Leon Pinto Work Phone: 9(774)739-687397 [place] [address] 03-13-2022 10:50-0500 Body temperature 99.1 [degF] Dr. Leon Pinto Work Phone: 3(951)355-309297 [place] [address] 03-13-2022 10:50-0500 Diastolic blood pressure 86 mm[Hg] Dr. Leon Pinto Work Phone: 6(182)644-388800 [address] 03-13-2022 10:50-0500 Heart rate 81 /min Dr. Leon Pinto Work Phone: 6(660)877-277552 [place] [address] 03-13-2022 10:50-0500 Respiratory rate 18 /min Dr. Leon Pinto Work Phone: 7(471)774-058452 [place] [address] 03-13-2022 10:50-0500 SaO2% (BldA) [Mass fraction] 97 % Dr. Leon Pinto Work Phone: 8(909)719-252897 [place] [address] 03-13-2022 10:50-0500 Systolic blood pressure 123 mm[Hg] Dr. Leon Pinto Work Phone: 0(162)767-167352 [place] [address] 03-13-2022 08:57-0500 Body height 165.[address] Leon Pinto Work Phone: 9(589)606-347152 [place] [address] 03-13-2022 08:57-0500 Body mass index (BMI) [Ratio] 42 kg/m2 Dr. Leon Pinto Work Phone: 9(516)583-300997 [place] [address] 03-13-2022 08:57-0500 Body weight 114.[address] Leon Pinto Work Phone: 6(457)281-129997 [place] [address] 01-05-2022 10:54-0500 Body mass index (BMI) [Ratio] 39.9 kg/m2 Dr. Leon Pinto Work Phone: 4(277)517-384397 [place] [address] 01-05-2022 10:54-0500 Body weight 108.[address] Leon Pinto Work Phone: 1(530)779-457097 [place] [address] 11-07-2021 09:43-0400 Body height 165.[address] Leon Pinto Work Phone: [facility] Work Phone: 11-07-2021 09:43-0400 Body mass index (BMI) [Ratio] 39.8 kg/m2 Dr. Leon Pinto Work Phone: [facility] Work Phone: 11-07-2021 09:43-0400 Body temperature 97.7 [degF] Dr. Leon Pinto Work Phone: [facility] Work Phone: 11-07-2021 09:43-0400 Body weight 108.[address] Leon Pinto Work Phone: [facility] Work Phone: 11-07-2021 09:43-0400 Diastolic blood pressure 78 mm[Hg] Dr. Leon Pinto Work Phone: [facility] Work Phone: 11-07-2021 09:43-0400 Heart rate 78 /min Dr. Leon Pinto Work Phone: [facility] Work Phone: 11-07-2021 09:43-0400 Respiratory rate 16 /min Dr. Leon Pinto Work Phone: [facility] Work Phone: 11-07-2021 09:43-0400 SaO2% (BldA) [Mass fraction] 97 % Dr. Leon Pinto Work Phone: [facility] Work Phone: 11-07-2021 09:43-0400 Systolic blood pressure 132 mm[Hg] Dr. Leno Pinto Work Phone: [facility] Work Phone: 06-27-2021 15:56-0400 Body temperature 99.2 [degF] Dr. Leon Pinto Work Phone: [facility] Work Phone: 06-27-2021 15:56-0400 Diastolic blood pressure 77 mm[Hg] Dr. Leon Pinto Work Phone: [facility] Work Phone: 06-27-2021 15:56-0400 Heart rate 69 /min Dr. Leon Pinto Work Phone: [facility] Work Phone: 06-27-2021 15:56-0400 Respiratory rate 18 /min Dr. Leon Pinto Work Phone: [facility] Work Phone: 06-27-2021 15:56-0400 SaO2% (BldA) [Mass fraction] 94 % Dr. Leon Pinto Work Phone: [facility] Work Phone: 06-27-2021 15:56-0400 Systolic blood pressure 111 mm[Hg] Dr. Leon Pinto Work Phone: [facility] Work Phone: 06-27-2021 14:25-0400 Body height 165.[address] Leon Pinto Work Phone: [facility] Work Phone: 06-27-2021 14:25-0400 Body mass index (BMI) [Ratio] 40.7 kg/m2 Dr. Leon Pinto Work Phone: [facility] Work Phone: 06-27-2021 14:25-0400 Body weight 111.[address] Leon Pinto Work Phone: [facility] Work Phone: 06-26-2021 11:08-0400 Body temperature 99.9 [degF] Dr. Leon Pinto Work Phone: [facility] Work Phone: 06-26-2021 11:08-0400 Diastolic blood pressure 80 mm[Hg] Dr. Leon Pinto Work Phone: [facility] Work Phone: 06-26-2021 11:08-0400 Heart rate 101 /min Dr. Leon Pinto Work Phone: [facility] Work Phone: 06-26-2021 11:08-0400 Respiratory rate 15 /min Dr. Leon Pinto Work Phone: [facility] Work Phone: 06-26-2021 11:08-0400 SaO2% (BldA) [Mass fraction] 97 % Dr. Leon Pinto Work Phone: [facility] Work Phone: 06-26-2021 11:08-0400 Systolic blood pressure 146 mm[Hg] Dr. Leon Pinto Work Phone: [facility] Work Phone: 06-26-2021 11:08-0400 Body temperature 99.9 [degF] Dr. Leon Pinto Work Phone: [facility] Work Phone: 06-26-2021 11:08-0400 Diastolic blood pressure 80 mm[Hg] Dr. Leon Pinto Work Phone: [facility] Work Phone: 06-26-2021 11:08-0400 Heart rate 101 /min Dr. Leon Pinto Work Phone: [facility] Work Phone: 06-26-2021 11:08-0400 Respiratory rate 15 /min Dr. Leon Pinto Work Phone: [facility] Work Phone: 06-26-2021 11:08-0400 SaO2% (BldA) [Mass fraction] 97 % Dr. Leon Pinto Work Phone: [facility] Work Phone: 06-26-2021 11:08-0400 Systolic blood pressure 146 mm[Hg] Dr. Leon Pinto Work Phone: [facility] Work Phone: 04-23-2021 10:30-0500 Body temperature 97.7 [degF] Dr. Leon Pinto Work Phone: [facility] Work Phone: 04-23-2021 10:30-0500 Diastolic blood pressure 82 mm[Hg] Dr. Leon Pinto Work Phone: [facility] Work Phone: 04-23-2021 10:30-0500 Heart rate 94 /min Dr. Leon Pinto Work Phone: [facility] Work Phone: 04-23-2021 10:30-0500 Respiratory rate 18 /min Dr. Leon Pinto Work Phone: [facility] Work Phone: 04-23-2021 10:30-0500 SaO2% (BldA) [Mass fraction] 97 % Dr. Leon Pinto Work Phone: [facility] Work Phone: 04-23-2021 10:30-0500 Systolic blood pressure 138 mm[Hg] Dr. Leon Pinto Work Phone: [facility] Work Phone: 04-23-2021 09:30-0500 Body temperature 97.7 [degF] Dr. Leon Pinto Work Phone: [facility] Work Phone: 04-23-2021 09:30-0500 Diastolic blood pressure 82 mm[Hg] Dr. Leon Pinto Work Phone: [facility] Work Phone: 04-23-2021 09:30-0500 Heart rate 94 /min Dr. Leon Pinto Work Phone: [facility] Work Phone: 04-23-2021 09:30-0500 Respiratory rate 18 /min Dr. Leon Pinto Work Phone: [facility] Work Phone: 04-23-2021 09:30-0500 SaO2% (BldA) [Mass fraction] 97 % Dr. Leon Pinto Work Phone: [facility] Work Phone: 04-23-2021 09:30-0500 Systolic blood pressure 138 mm[Hg] Dr. Leon Pinto Work Phone: [facility] Work Phone: 04-20-2021 10:15-0500 Body temperature 98.7 [degF] Dr. Leon Pinto Work Phone: [facility] Work Phone: 04-20-2021 10:15-0500 Body weight 113.[address] Leon Pinto Work Phone: [facility] Work Phone: 04-20-2021 10:15-0500 Diastolic blood pressure 86 mm[Hg] Dr. Leon Pinto Work Phone: [facility] Work Phone: 04-20-2021 10:15-0500 Heart rate 91 /min Dr. Leon Pinto Work Phone: [facility] Work Phone: 04-20-2021 10:15-0500 Respiratory rate 17 /min Dr. Leon Pinto Work Phone: [facility] Work Phone: 04-20-2021 10:15-0500 SaO2% (BldA) [Mass fraction] 92 % Dr. Leon Pinto Work Phone: [facility] Work Phone: 04-20-2021 10:15-0500 Systolic blood pressure 134 mm[Hg] Dr. Leon Pinto Work Phone: [facility] Work Phone: 04-20-2021 09:15-0500 Body height 165.[address] Leon Pinto Work Phone: [facility] Work Phone: 04-20-2021 09:15-0500 Body temperature 98.7 [degF] Dr. Leon Pinto Work Phone: [facility] Work Phone: 04-20-2021 09:15-0500 Body weight 113.[address] Leon Pinto Work Phone: [facility] Work Phone: 04-20-2021 09:15-0500 Diastolic blood pressure 86 mm[Hg] Dr. Leon Pinto Work Phone: [facility] Work Phone: 04-20-2021 09:15-0500 Heart rate 91 /min Dr. Leon Pinto Work Phone: [facility] Work Phone: 04-20-2021 09:15-0500 Respiratory rate 17 /min Dr. Leon Pinto Work Phone: [facility] Work Phone: 04-20-2021 09:15-0500 SaO2% (BldA) [Mass fraction] 92 % Dr. Leon Pinto Work Phone: [facility] Work Phone: 04-20-2021 09:15-0500 Systolic blood pressure 134 mm[Hg] Dr. Leon Pinto Work Phone: [facility] Work Phone: 09-28-2020 06:02-0400 Body mass index (BMI) [Ratio] 34.9 kg/m2 Dr. Leon Pinto Work Phone: [facility] Work Phone: 09-28-2020 06:02-0400 Body mass index (BMI) [Ratio] 34.9 kg/m2 Dr. Leon Pinto Work Phone: [facility] Work Phone: Encounters Encounter Date Encounter Type Care Provider Facility Start: 01-02-2025 ambulatory Lucas Bassett Facility:[facility] Start: 12-31-2024 End: 12-31-2024 ambulatory Heather Sauceda Facility:[facility] Start: 12-23-2024 End: 12-23-2024 ambulatory Heather Sauceda Facility:[facility] Start: 12-16-2024 ambulatory Zachary Gandhi Facility:[facility] Start: 12-09-2024 End: 12-09-2024 ambulatory Luc Cooney Facility:[facility] Start: 12-02-2024 End: 12-02-2024 ambulatory Heather Sauceda Facility:[facility] Start: 12-02-2024 End: 12-02-2024 ambulatory Summer Funez Facility:[facility] Start: 11-26-2024 ambulatory Florence Lopez Facility:[facility] Start: 11-18-2024 End: 11-18-2024 ambulatory Heather Sauceda Facility:[facility] Start: 11-15-2024 ambulatory Florence Lopez Facility:[facility] Start: 11-04-2024 End: 11-04-2024 ambulatory Chalon Dee Dee Facility:[facility] Start: 11-03-2024 End: 11-03-2024 ambulatory Heather Sauceda Facility:[facility] Start: 10-21-2024 End: 10-21-2024 ambulatory Heather Sauceda Facility:[facility] Start: 10-13-2024 End: 10-13-2024 ambulatory Chalon Dee Dee Facility:[facility] Start: 10-13-2024 ambulatory Chalon Dee Dee Facility:[facility] Start: 10-07-2024 End: 10-07-2024 ambulatory Chalon Dee Dee Facility:[facility] Start: 09-24-2024 End: 09-24-2024 ambulatory Isaias Leon Facility:[facility] Start: 09-23-2024 End: 09-23-2024 ambulatory Chalon Dee Dee Facility:[facility] Start: 09-19-2024 End: 09-19-2024 ambulatory Chalon Dee Dee Facility:[facility] Start: 09-11-2024 ambulatory Chalon Dee Dee Facility:[facility] Start: 09-11-2024 End: 09-11-2024 ambulatory Chalon Dee Dee Facility:[facility] Start: 09-08-2024 ambulatory Chalon Dee Dee Facility:[facility] Start: 08-26-2024 End: 08-26-2024 Emergency department patient visit Chalon Dee Dee Facility:[facility] Start: 08-06-2024 End: 08-06-2024 ambulatory Chalon [place] Dee [place] Start: 07-18-2024 Encounter for genera l adult medical examination without abnormal findings Heather Hall [facility] Start: 07-03-2024 End: 07-03-2024 ambulatory [facility] Facility:[facility] Start: 05-29-2024 End: 05-29-[address] Wesley Lizama MD -[facility] Work Phone: Start: 05-29-2024 End: 05-29-2024 ambulatory Chalon Dee Dee Facility:[facility] Start: 05-27-2024 End: 05-27-2024 Patient encounter procedure Heather Hall NP-C -[facility] Work Phone: Start: 05-27-2024 End: 05-27-2024 ambulatory Summer Funez MD Work Phone: [facility] Work Phone: Start: 05-26-2024 ambulatory Chalon Dee Dee Facility:[facility] Start: 05-22-2024 End: 05-22-2024 Discharged Recurring Kala CARABALLO -Physical Therapy Work Phone: Start: 05-22-2024 End: 05-22-2024 ambulatory Summer Funez MD Work Phone: [facility] Work Phone: Start: 05-22-2024 End: 05-22-2024 Patient encounter procedure Kala CARABALLO -[facility] Work Phone: Start: 05-19-2024 End: 05-19-2024 Patient encounter procedure Delisa Foster NP-C -[facility] Work Phone: Start: 05-19-2024 End: 05-19-2024 ambulatory Chalon Dee Dee [place] Start: 05-15-2024 Registered Recurring Kala Nicholas PA -Physical Therapy Work Phone: Start: 05-13-2024 Registered Recurring Kala Nicholas PA -Physical Therapy Work Phone: Start: 05-12-2024 End: 05-12-2024 ambulatory Summer Funez MD Work Phone: [facility] Work Phone: Start: 05-12-2024 End: 05-12-2024 Patient encounter procedure Kala CARABALLO -MRI - [facility] Work Phone: Start: 05-12-2024 End: 05-12-2024 ambulatory Chalon Dee Dee Facility:[facility] Start: 05-07-2024 Registered Recurring Kala Nicholas PA -Physical Therapy Work Phone: Start: 05-05-2024 Registered Recurring Kala Nicholas PA -Physical Therapy Work Phone: Start: 05-01-2024 End: 05-01-2024 ambulatory Summer Funez MD Work Phone: [facility] Work Phone: Start: 05-01-2024 End: 05-01-2024 Patient encounter procedure Heather PADILLA -[facility], [facility] Work Phone: Start: 05-01-2024 End: 05-01-2024 ambulatory Chalon Dee Dee Facility:[facility] Start: 04-28-2024 End: 04-28-2024 Patient encounter procedure Heather PADILLA -Laboratory Work Phone: Start: 04-28-2024 End: 04-28-2024 ambulatory Summer Funez MD Work Phone: [facility] Work Phone: Start: 04-28-2024 End: 04-28-2024 ambulatory Chalon Dee Dee Facility:[facility] Start: 04-25-2024 End: 04-25-2024 ambulatory Summer Funez MD Work Phone: [facility] Work Phone: Start: 04-25-2024 End: 04-25-[address] Semaj Joseph MD -Cat Scan, [facility] Work Phone: Start: 04-25-2024 End: 04-25-2024 ambulatory Chalon Dee Dee Facility:[facility] Start: 04-07-2024 End: 04-07-2024 Admission to same day surgery center Dr. Rj Bravo MD -[facility] Start: 04-07-2024 End: 04-07-2024 ambulatory Chalon Dee Dee Facility:[facility] Start: 04-01-2024 End: 04-01-2024 Patient encounter procedure Kala CARABALLO -[facility] Work Phone: Start: 04-01-2024 End: 04-01-2024 ambulatory Chalon Dee Dee Facility:[facility] Start: 03-26-2024 End: 03-26-2024 Patient encounter procedure Kala CARABALLO -Radiology, [place] Work Phone: Start: 03-26-2024 End: 03-26-2024 ambulatory Chalon Dee Dee Facility:[facility] Start: 01-25-2024 End: 01-25-[address] Summer Funez MD -Radiology, [facility] Work Phone: Start: 01-25-2024 End: 01-25-2024 ambulatory Chalon Dee Dee Facility:[facility] Start: 01-12-2024 End: 01-12-2024 Patient encounter procedure Jaleel CARABALLO -[facility] Work Phone: Start: 01-12-2024 End: 01-12-2024 ambulatory Chalon Dee Dee Facility:[facility] Start: 01-07-2024 ambulatory Chalon Dee Dee Facility:[facility] Start: 01-07-2024 End: 01-07-2024 Admission to same day surgery center Dr. Rj Bravo MD -[facility] Start: 01-07-2024 End: 01-07-2024 ambulatory [facility] Facility:[facility] Start: 06-12-2023 End: 06-12-[address] Leon Pinto Work Phone: [facility] Work Phone: Start: 06-12-2023 End: 06-12-[address] Leon Pinto Work Phone: [facility]-Physical Therapy Work Phone: Start: 05-28-2023 ambulatory Phyllis Almeida PA-C Work Phone: [facility] Comment on above: MRI Start: 05-25-2023 ambulatory Phyllis Almeida PA-C Work Phone: [facility] Comment on above: MRI results Start: 05-24-2023 End: 05-24-2023 ambulatory [facility] Facility:[facility] Start: 05-24-2023 End: 05-24-2023 Subsequent hospital visit by physician Mri Radio [facility] (I-Stat/1.5t) Work Phone: Radiology Comment on above: Chronic RUQ pain [R1 0.11, G89.29] Start: 05-11-2023 End: 05-11-2023 ambulatory [facility] Facility:[facility] Start: 05-11-2023 End: 05-11-2023 ambulatory Phyllis Kalka PA-C Work Phone: [facility] Comment on above: Chronic RUQ pain (Pr imary Dx); Fatty metamorphosis of liver; Right upper quadrant abdominal pain Start: 05-11-2023 End: 05-11-2023 Telemedicine consultation with patient Phyllis Almeida PA-C Work Phone: [facility] Start: 05-09-2023 End: 05-09-[address] Leon Pinto Work Phone: [facility] Work Phone: Start: 05-08-[address] Leon camacho Work Phone: [facility] Work Phone: Start: 05-08-2023 End: 05-08-2023 ambulatory Phyllis Almeida PA-C Work Phone: Gastroenterology Comment on above: [employer]term[employer], FMLA Start: 05-08-2023 End: 05-08-2023 ambulatory [facility] Facility:[facility] Start: 05-08-2023 End: 05-08-2023 Patient encounter procedure Hepatology Procedures [facility]og Work Phone: [facility] Start: 05-07-2023 End: 05-07-2023 Orders Only Phyllis Almeida PA-C Work Phone: Gastroenterology Comment on above: 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 Start: 05-07-2023 End: 05-07-[address] Leon Pnito Work Phone: [facility] Work Phone: Start: 05-04-2023 End: 05-04-2023 ambulatory SANGEETHA SILVA Facility:[facility] Start: 05-04-2023 End: 05-04-2023 Subsequent hospital visit by physician Sangeetha Silva MD Work Phone: Ambulatory Surgery Comment on above: Chronic RUQ pain [R1 0.11, G89.29] Start: 05-01-2023 End: 05-01-2023 ambulatory [facility] Facility:[facility] Start: 05-01-2023 End: 05-01-2023 Subsequent hospital visit by physician [facility] Work Phone: Radiology Comment on above: Abnormal CT of liver [R93.2] Start: 04-25-2023 End: 04-25-2023 [facility] Work Phone: Start: 04-25-2023 End: 04-25-2023 Patient encounter procedure [facility], [facility] Work Phone: Start: 04-24-2023 End: 04-24-2023 ambulatory [facility] Work Phone: Start: 04-24-2023 End: 04-24-2023 Patient encounter procedure [facility], [place] Work Phone: Start: 04-18-2023 End: 04-18-2023 ambulatory LEON PINTO Facility:[facility] Start: 04-18-2023 End: 04-18-2023 Patient encounter procedure Phyllis Almeida PA-C Work Phone: Gastroenterology [place] Comment on above: Chronic RUQ pain (Pr imary Dx); Nausea; Abnormal CT of liver Start: 03-08-2023 End: 03-08-2023 ambulatory [facility] Work Phone: Start: 03-08-2023 End: 03-08-2023 Patient encounter procedure [facility]Cat Scan, [facility] Work Phone: Start: 02-22-2023 End: 02-22-2023 ambulatory [facility] Work Phone: Start: 02-22-2023 End: 02-22-2023 Patient encounter procedure [facility]Laboratory, Phy Office 3rd Flr Start: 11-28-2022 End: 11-28-[address] Leon Pinto Work Phone: [facility] Work Phone: Start: 11-28-2022 End: 11-28-[address] Leon Pinto Work Phone: [facility], Phy Office 3rd Flr Start: 10-27-2022 End: 10-27-[address] Leon Pinto Work Phone: [facility] Work Phone: Start: 10-27-2022 End: 10-27-[address] [facility] Pinto [facility] Work Phone: Start: 10-25-2022 End: 10-25-[address] Leon Pinto Work Phone: [facility] Work Phone: Start: 10-12-2022 End: 10-12-[address] Leon Pinto Work Phone: [facility] Work Phone: Start: 10-12-2022 End: 10-12-[address] Leon Pinto [facility] Phone: [facility] Work Phone: Start: 10-11-2022 End: 10-11-[address] Leon Pinto Work Phone: [facility] Work Phone: Start: 10-11-2022 End: 10-11-[address] Leon Pinto [facility] Work Phone: Start: 09-27-2022 End: 09-27-[address] Leon Pinto Work Phone: [facility] Work Phone: Start: 09-27-2022 End: 09-27-[address] Leon Pinto Work Phone: [facility], [facility] Work Phone: Start: 09-01-2022 End: 09-01-[address] Leon Pinto Work Phone: [facility] Work Phone: Start: 09-01-2022 End: 09-01-[address] Leon Pinto Work Phone: [facility] Work Phone: Start: 08-03-2022 End: 08-03-[address] Leon Pinto Work Phone: [facility] Work Phone: Start: 06-14-2022 End: 06-14-[address] Leon Pinto Work Phone: [facility] Work Phone: Start: 06-14-2022 End: 06-14-[address] Leon Pinto Work Phone: [facility] Start: 05-11-2022 End: 05-11-[address] Leon Pinto Work Phone: [facility] Work Phone: Start: 05-11-2022 End: 05-11-[address] Leon Pinto [facility] Phone[facility] Start: 04-10-2022 End: 04-10-[address] Leon Pinto Work Phone: [facility] Start: 03-28-2022 End: 03-28-2022 Emergency department patient visit Dr. Leon Pinto Work Phone: [facility] Start: 03-21-2022 End: 03-21-[address] Leon Pinto Work Phone: [facility] Work Phone: Start: 03-21-2022 End: 03-21-[address] Leon Pinto Work Phone: [place] Start: 03-13-2022 Non-patient / Non-visit Dr. Hung Pinto Work Phone: [facility] Start: 03-13-2022 End: 03-13-2022 Admission to same day surgery center Dr. Leon Pinto [facility] Phone: [facility] Start: 03-13-2022 End: 03-13-[address] Leon Pinto Work Phone: [facility] Work Phone: Start: 01-05-2022 Non-patient / Non-visit Dr. Hung Pinto Work Phone: [facility] Start: 01-03-2022 End: 01-03-[address] Leon Pinto Work Phone: [facility]Out[facility] Start: 11-23-2021 End: 11-23-[address] Leon Pinto Work Phone: [facility] Work Phone: Start: 11-23-2021 End: 11-23-[address] Leon Pinto Work Phone: [facility], [address] Start: 11-07-2021 End: 11-07-[address] Leon Pinto Work Phone: [facility] Start: 11-03-2021 End: 11-03-[address] Leon Pinto Work Phone: [facility] Start: 09-20-2021 Non-patient / Non-visit Dr. Hung Pinto Work Phone: [facility] Start: 09-20-2021 End: 09-20-[address] Leon Pinto Work Phone: [facility] Services/Neurology Start: 08-08-2021 End: 08-08-[address] Leon Pinto [facility] Start: 06-27-2021 End: 06-27-[address] Leon Pinto Work Phone: [facility]Medical Surgical 3 Outp Start: 06-27-2021 Non-patient / Non-visit Dr. Hung Pinto Work Phone: [facility] Start: 06-26-2021 End: 06-26-[address] Leon Pinto Work Phone: [facility] Start: 06-26-2021 End: 06-26-[address] Leon Pinto Work Phone: [facility] Start: 05-28-2021 End: 05-28-[address] Leon Pinto [facility] Start: 05-06-2021 End: 05-06-[address] Leon Pinto Work Phone[facility] Start: 04-26-2021 End: 04-26-[address] Leon Pinto [facility] Start: 04-23-2021 End: 04-23-[address] Leon Pinto Work Phone: [facility] Start: 04-20-2021 End: 04-20-[address] Leon Pinto Work Phone[facility] Start: 04-08-2021 End: 04-08-[address] Leon Pinto Work Phone: [facility] Start: 03-04-2021 End: 03-04-[address] Leon Pinto Work Phone: [facility] Start: 02-02-[address] Leon Pinto [facility] Start: 06-13-2018 Patient encounter procedure DOCTOR UNASSIGNED [...] Treatment Date Care Activity Detail Author Start: 01-07-2025 ambulatory Facility:[facility] Start: 09-23-2024 Walking distance 6 minutes [facility] Start: 09-19-2024 Measurement of respiratory function [facility] Start: 04-07-2024 Anes dx/ther nerve block/injection prone pos ANESTH N BLOCK/INJ PRONE [facility] Start: 04-07-2024 Njx dx/ther agt pvrt facet jt lmbr/sac 1 level INJ PARAVERT F JNT L/S 1 [facility] Start: 04-07-2024 Njx dx/ther agt pvrt facet jt lmbr/sac 2nd level INJ PARAVERT F JNT L/S 2 [facility] Start: 04-07-2024 Patient discharge [facility] Start: 04-01-2024 Patient referral [facility] Work Phone: Start: 01-07-2024 Patient discharge [facility] Start: 10-20-2022 Covid-19 Vaccine ( season) Covid-19 Vaccine () [facility] Start: 04-26-2022 Screening for malign ant neoplasm of colon [facility] Start: 03-28-2022 [facility] Start: 03-13-2022 Colsc flx w/rmvl of tumor polyp lesion snare tq COLONOSCOPY W/LESION REMOVAL [facility] Start: 03-13-2022 Patient discharge [facility] Start: 2021 Hepatitis B Vaccine (1 of 3 - Risk 3-dose series) Hepatitis B Vaccine (1 of 3 - Risk 3-dose series) [facility] Start: 2021 RSV Vaccine (1 - 1-d ose 60+ series) RSV Vaccine (1 - 1-dose 60+ series) [facility] Start: 2011 Shingrix Vaccine (1 of 2) Shingrix Vaccine (1 of 2) [facility] Start: 08-02-2007 Screening for malign ant neoplasm of cervix Pap Testing [facility] Start: 2006 Diabetes Screening Diabetes Screenin g [facility] Start: 2006 Lipid panel Lipid Screening [facility] Start: 2006 Screening for malign ant neoplasm of colon [facility] Start: 2001 Screening for malign ant neoplasm of breast Mammogram Screening [facility] Start: 1991 Screening for malign ant neoplasm of cervix HPV Testing [facility] Start: 02-20-1980 Hepatitis A Vaccine (1 of 2 - Risk 2-dose series) Hepatitis A Vaccine (1 of 2 - Risk 2-dose series) [facility] Start: 02-20-1980 Urine microalbumin profile DTaP,Tdap,Td Vaccine (1 - Tdap) [facility] Start: 1979 Hepatitis C screening Hepatitis C Sc reening [facility] Start: 1979 HIV screening HIV Screening [facility] Start: 1967 Pneumococcal vaccination Pneum ococcal Vaccine (1 of 2 - PCV) [facility] C reactive protein [Mass/volume] in Serum or Plasma [facility] CBC W Auto Different ial panel - Blood [facility] Colonoscopy [facility] Comprehensive metabo lic 2000 panel - Serum or Plasma [facility] CT Chest [facility] Work Phone: CT Chest [facility] CT Chest [facility] CT Chest [facility] End: 04-18-2024 EGD DIAGNOSTIC EGD DIAGNOSTIC Endoscopy Routine Chronic RUQ pain Nausea 1 Occurrences starting 04/18/2023 until 04/18/2024 [facility] Work Phone: Comment on above: 1 Occurrences starti ng 04/18/2023 until 04/18/2024 Hemoglobin A1c/Hemoglobin.total in Blood [facility] Lipid 1996 panel - S mukesh or Plasma [facility] Liver ultrasound attenuation by transient elastography VIBRATION CONTROLLED TRANSIENT ELASTOGRAPHY (POC) Imaging Diagnostic Routine Fatty metamorphosis of liver Ordered: 05/07/2023 [facility] Work Phone: Comment on above: Ordered: 05/07/2023 Measurement of respiratory function [facility] Work Phone: Measurement of respiratory function [facility] End: 06-09-2024 MR Biliary ducts and Pancreatic duct WO and W contrast IV MRI PANC/KATIE WO/W IVCON Radiology Routine Chronic RUQ pain Right upper quadrant abdominal pain 1 Occurrences starting 05/11/2023 until 06/09/2024 [facility] Work Phone: Comment on above: 1 Occurrences starti ng 05/11/2023 until 06/09/2024 MR Biliary ducts and Pancreatic duct WO and W contrast IV MRI PANC/KATIE WO/W IVCON Radiology Routine Chronic RUQ pain Right upper quadrant abdominal pain 05/24/2023 1:40 PM EDT [facility] Work Phone: End: 06-09-2024 MR Unspecified body region 3D post processing MRI 3D POST PROCESSING Radiology Routine Chronic RUQ pain Right upper quadrant abdominal pain 1 Occurrences starting 05/11/2023 until 06/09/2024 [facility] Work Phone: Comment on above: 1 Occurrences starti ng 05/11/2023 until 06/09/2024 MR Unspecified body region 3D post processing MRI 3D POST PROCESSING Radiology Routine Chronic RUQ pain Right upper quadrant abdominal pain 05/24/2023 1:40 PM EDT [facility] Work Phone: Patient Education ED Chest Pain, Noncardiac [facility] Work Phone: Patient referral [facility] Work Phone: Prothrombin time [facility] Radionuclide gastric emptying study [facility] SURGICAL PATHOLOGY [facility] Work Phone: Comment on above: Release Upon Orderin g for 1 Occurrences starting 05/04/2023, [address] [facility] End: 05-17-2024 US Abdomen RUQ US ABD RIGHT UPPER QUADRANT Radiology Routine Abnormal CT of liver 1 Occurrences starting 04/18/2023 until 05/17/2024 [facility] Work Phone: Comment on above: 1 Occurrences starti ng 04/18/2023 until 05/17/2024 Walking distance 6 minutes [facility] Immunizations Immunization Date Immunization Notes Care Provider Fa connie 11-15-2023 influenza, seasonal, injectable, preservative free Summer Funez MD Work Phone: [facility] 11-29-2022 influenza, injectabl e, quadrivalent, preservative free Dr. Leon Pinto Work Phone: [facility] 12-03-2020 Covid (Moderna) Dr. Leon Pinto Work Phone: [facility] 03-22-2020 Covid (Moderna) Dr. Leon Pinto Work Phone: [facility] 02-23-2020 Covid (Moderna) Dr. Leon Pinto Work Phone: [facility] 01-04-2015 influenza, injectabl e, quadrivalent, preservative free Dr. Leon Pinto Work Phone: [facility] 01-04-2015 influenza, seasonal, injectable Dr. Leon Pinto Work Phone: [facility] 11-05-2013 influenza, injectabl e, quadrivalent, preservative free Dr. Leon Pinto Work Phone: [facility] 11-05-2013 influenza, seasonal, injectable Dr. Leon Pinto Work Phone: [facility] 03-03-[address] Leon Pinto Work Phone: [facility] Payers Date Payer Category Payer Self-pay [id number] 2023 Private Health Insurance [facility] [id number] 2023-Present [phone] [address] [place] [phone] PPO [id number] 2023 Unknown [id number] 2015 Unknown [id number] 1960 Unknown [id number] 2.16.840.1.404450.3.579.2.6 93 Unknown [id number] Unknown [id number] 2.16.840.1.184716.3.579.2.4 62 Unknown [id number] 2.16.840.1.245433.3.579.2.4 62 Unknown [id number] 2.16.840.1.503626.3.579.2.4 62 Unknown [id number] 2.16.840.1.269065.3.579.2.4 62 Unknown [id number] 2.16.840.1.447119.3.579.2.4 62 Unknown [id number] 2.16.840.1.501439.3.579.2.4 62 Unknown [id number] 2.16.840.1.537301.3.579.2.4 62 Unknown [id number] 2.16.840.1.928788.3.579.2.4 62 Unknown [id number] 2.16.840.1.080340.3.579.2.4 62 Unknown [id number] 2.16.840.1.298677.3.579.2.4 62 Unknown [id number] 2.16.840.1.789043.3.579.2.4 62 Unknown [id number] 2.16.840.1.245032.3.579.2.4 62 Unknown [id number] 2.16.840.1.218914.3.579.2.4 62 Unknown [id number] 2.16.840.1.066259.3.579.2.4 62 Unknown [id number] 2.16.840.1.104439.3.579.2.4 62 Unknown [id number] 2.16.840.1.840758.3.579.2.4 62 Unknown [id number] 2.16.840.1.883383.3.579.2.4 62 Unknown [id number] 2.16.840.1.652765.3.579.2.4 62 Unknown [id number] 2.16.840.1.842701.3.579.2.4 62 Unknown [id number] 2.16.840.1.449270.3.579.2.4 62 Unknown [id number] 2.16.840.1.814697.3.579.2.4 62 Unknown [id number] 2.16.840.1.069071.3.579.2.4 62 Unknown [id number] 2.16.840.1.289771.3.579.2.4 62 Unknown [id number] 2.16.840.1.106502.3.579.2.4 62 Unknown [id number] 2.16.840.1.181834.3.579.2.4 62 Unknown [id number] 2.16.840.1.063880.3.579.2.4 62 Unknown [id number] 2.16.840.1.172342.3.579.2.4 62 Unknown [id number] 2.16.840.1.574484.3.579.2.4 62 Unknown [id number] 2.16.840.1.312252.3.579.2.4 62 Unknown [id number] 2.16.840.1.107171.3.579.2.4 62 Unknown [id number] 2.16.840.1.227500.3.579.2.4 62 Unknown [id number] 2.16.840.1.273013.3.579.2.4 62 Unknown [id number] 2.16.840.1.861549.3.579.2.4 62 Unknown [id number] 2.16.840.1.360650.3.579.2.4 62 Unknown [id number] 2.16.840.1.205049.3.579.2.4 62 Unknown [id number] 2.16.840.1.010869.3.579.2.4 62 Unknown [id number] 2.16.840.1.980799.3.579.2.4 62 Unknown [id number] 2.16.840.1.177130.3.579.2.4 62 Unknown [id number] 2.16.840.1.523759.3.579.2.4 62 Unknown [id number] 2.16.840.1.470242.3.579.2.4 62 Unknown [id number] 2.16.840.1.294166.3.579.2.4 62 Unknown [id number] 2.16.840.1.007573.3.579.2.4 62 Unknown [id number] 2.16.840.1.893070.3.579.2.4 62 Unknown [id number] 2.16.840.1.998698.3.579.2.4 62 Unknown [id number] 2.16.840.1.198130.3.579.2.4 62 Unknown [id number] 2.16.840.1.288496.3.579.2.4 62 Unknown [id number] 2.16.840.1.481074.3.579.2.4 62 Social History Date Type Detail Facility Start: 04-23-2021 End: 06-07-2023 Tobacco smoking status NHIS Unknown if ever smoked [facility] Start: 1960 Sex Assigned At Female [facility] Start: 06-05-2017 Cigarettes [facility] Start: 04-18-2023 End: 05-29-2024 Tobacco smoking status NHIS Smokes tobacco daily [facility] Start: 04-18-2023 End: 05-04-2023 Tobacco use and exposure Smokeless tobacco non-user [facility] Start: 04-18-2023 End: 05-04-2023 Alcohol intake Current non-drinker of alcohol (finding) [facility] Start: 04-18-2023 End: 05-04-2023 History of Social function [facility] Start: 04-18-2023 End: 05-04-2023 Tobacco use panel [facility] National Score (1-100), lower number is lower risk 35 [facility] Start: 1960 Sex Assigned At Not on file [facility] Start: 05-04-2023 Tobacco smoking stat us NHIS Ex-smoker [facility] End: 04-27-2023 History of tobacco use Current smoker [facility] End: 04-27-2023 History of tobacco use Cigarette Smoker [facility] Start: 05-06-2024 End: 05-29-2024 Sex Female (finding) [facility] Medical Equipment Procedure Code Equipment Code [...] Assessment Result Facility 04-07-2024 Cognitive function Voice/Name [facility] Work Phone: 01-07-2024 Cognitive function Level Of Cons ciousness Awake;Alert;Appropriate;Follow s Commands [facility] Work Phone: 01-07-2024 Cognitive function Voice/Name [facility] Work Phone: 03-28-2022 Cognitive function Voice/Name [facility] Work Phone: 03-13-2022 Cognitive function Voice/Name [facility] Work Phone: 06-27-2021 Cognitive function Voice/Name;To uch/Shaking;Light Pain;Deep Pain [facility] Work Phone: Clinical Notes 03-13-2022 to 05-22-2024 Note Date & Type Note Facility 05-22-2024 Discharge summary Note Date/Time May 22, 2024 7:00 pm [facility] [place] [address] / REHABILITATION SERVICES DISCHARGE SUMMARY MR#: [id number] Acct: [id number] Name: MONICA MALDONADO Rep #: [id number] : 1960 64 From: Zachary Tovar DPT, OCS, CSCS Referring DrRuth Ann: ILYA Antunez Status: REG RCR Insurance: [facility] [employer]/[facility] SELF PAY INSURANCE Discharge Summary D/C summary: [...] please feel free to call me at [phone]. Thank you for the referral of thispatient. Sincerely, Zachary Tovar DPT, OCS, CSCS Balance/Gait/Functional tests Balance/Special Test Scores Oswestry Low Back Score: 8 Improvement % Improvement: 70 <Electronically signed by Zachary Tovar DPT, OCS, CSCS> 05/22/24 8288 CC: ILYA Antunez; Dr. Summer Funez MD ~ EBG Signed [facility] Work Phone: 1(530) 540-479904-03-2025 Discharge summary [facility] [place] [address] / REHABILITATION SERVICES DISCHARGE SUMMARY MR#: [id number] Acct: [id number] Name: MONICA MALDONADO Rep #: [id number] : 1960 64 From: Zachary Tovar DPT, OCS, CSCS Referring Dr.: ILYA Antunez Status: REG RCR Insurance: [employer]/[facility] SELF PAY INSURANCE Discharge Summary D/C summary: [...] please feel free to call me at [phone]. Thank you for the referral of thispatient. Sincerely, Zachary Tovar, DPT, OCS, CSCS Balance/Gait/Functional tests Balance/Special Test Scores Oswestry Low Back Score: 8 Improvement % Improvement: 70 05/22/24 1709 CC: ILYA Antunez; Dr. Summer Funez MD ~ EBG Signed [facility]03-13-2025 Radiology Diagnostic study note [facility] Imaging Services [address] [place] [address] Abdomen Limited MR#: [id number] Acct: [id number] Name: MONICA MALDONADO Rep #: [id number] : 1960 F 64 From: Atul Schwab MD PCP: Dr. Summer Funez MD Status: REG CL I Study:Abdomen Limited Date of Exam: 04/19 05/13 Exam# [id number] Ordering Dr: Heather Hall PROCEDURE: ABDOMEN LIMITED [...] No acute abnormality is seen. Reading Location: [facility] CC: GARMENT CUTTER-C Heather Hall; Dr. 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 Imaging Services [address] [place] [id number] Low Dose CT Lung Screening MR#: [id number] Acct: [id number] Name: MONICA MALDONADO Rep #: [id number] : 1960 F 64 From: Atul Schwab MD PCP: Dr. Summer Funez MD Status: REG CL I Study:Low Dose CT Lung Screening Date of Exam : 04/25/24 Exam# [id number] Ordering Dr: Dheeraj Joseph MD PROCEDURE: LOW [...] potentially significant findings (non-lung cancer) Reading Location: [id number] CC: Dr. Semaj Joseph MD; Dr. Summer Funez MD ~ [employer]ocker [employer] Attendant: Signed [facility]02-11-2025 Evaluation note* Diagnosis Onset Date Resolution Status Admit Date Cervical radiculopathy chronic [facility] [place] 2024 11:07am Spondylolisthesis at L5-S1 level noneactive April 01 025 11:07am Lumbar stenosis with neuroge deyvi claudication noneactive April 01 025 11:07am Epigastric pain acute April 10:53am Fatty (change of) liver, not elsewhere classified acute April 28, 2024 10:53am RUQ pain acute April 28 10:53am GERD (gastroesophageal reflu x disease) chronic April 28, 2024 10:53am [facility] Work Phone: 1(542) 877-775502-11-2025 Evaluation note* Diagnosis Onset Date Resolution Status Admit Date Cervical radiculopathy chronic [facility] [place] 2024 11:07am Spondylolisthesis at L5-S1 level noneactive April 01 025 11:07am Lumbar stenosis with neuroge deyvi claudication noneactive April 01 025 11:07am Epigastric pain acute April 10:53am Fatty (change of) liver, not elsewhere classified acute April 28, 2024 10:53am RUQ pain acute April 28 10:53am GERD (gastroesophageal reflu x disease) chronic April 28, 2024 10:53am Irregular heart rhythm acute [facility] 2024 9:38am TAMRA (obstructive sleep apnea) chroni c May 19, 2024 9:38am Shortness of breath chronic May 19, 2024 9:38am Smoking greater than 30 pack years chronic May 19, 2024 9:38am 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 May 19, 2024 9:38am [facility] Work Phone: 1(109) 165-121102-11-2025 Evaluation note* Diagnosis Onset Date Resolution Status Admit Date Cervical radiculopathy chronic [facility] [place] 2024 11:07am Spondylolisthesis at L5-S1 level noneactive April 01 025 11:07am Lumbar stenosis with neuroge deyvi claudication noneactive April 01 11:07am Epigastric pain acute April 10:53am Fatty (change of) liver, not elsewhere classified acute April 28, 2024 10:53am RUQ pain acute April 28 10:53am GERD (gastroesophageal reflu x disease) chronic April 28, 2024 10:53am Irregular heart rhythm acute [facility] 2024 9:38am TAMRA (obstructive sleep apnea) chroni c May 19, 2024 9:38am Shortness of breath chronic May 19, 2024 9:38am Smoking greater than 30 pack years chronic May 19, 2024 9:38am 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 May 19, 2024 9:38am Lumbar radiculopathy acute [facility] 2024 1:50pm [facility] Work Phone: 1(179) 284-686202-11-2025 Evaluation note* Diagnosis Onset Date Resolution Status Admit Date Cervical radiculopathy chronic [facility] 2024 11:07am Spondylolisthesis at L5-S1 level noneactive April 01 025 11:07am Lumbar stenosis with neuroge deyvi claudication noneactive April 01 025 11:07am Epigastric pain acute April 10:53am GERD (gastroesophageal reflu x disease) chronic April 28, 2024 10:53am RUQ pain chronic April 28 10:53am Fatty (change of) liver, not elsewhere classified deleted April 28, 2024 10:53am Irregular heart rhythm acute [facility] 2024 9:38am TAMRA (obstructive sleep apnea) chroni [...] 12:55pm RUQ pain chronic May 29 12:55pm [facility] Work Phone: 1([phone]) 782-509111-23-2024 Evaluation note* Diagnosis Onset Date Resolution Status [...] x disease) chronic April 28, 2024 10:53am [facility] Work Phone: 1([phone]) 423-858004-23-2024 Discharge summary Author Zachary Tovar [facility] June 12, 2023 4:48pm Note Date/Time June 12, 2023 4:4 8pm [facility] [address] [place] [address]. [address] [place] [address] / REHABILITATION SERVICES DISCHARGE SUMMARY MR#: [id number] Acct: [id number] Name: MONICA MALDONADO Rep #: [id number] : 1960 63 From: Zachary Tovar DPT, OCS, CSCS Referring Dr.: Dr. Summer Funez MD Status: REG RCR Insurance: [employer]/[facility] SELF PAY INSURANCE Discharge Summary D/C summary: [...] is full but HS limits. SB are [id number]. Walking well and transitioning well without hesitation, [...] please feel free to call me at [phone]. Thank you for the referral of thispatient. Sincerely, Zachary Tovar, ERICKAT, OCS, CSCS Balance/Gait/Functional tests Balance/Special Test Scores Oswestry Low Back Score: 8 Improvement % Improvement: 90 <Electronically signed by Zachary Tovar DPT, OCS, CSCS> 06/12/23 1893 CC: Dr. Summer Funez MD ~ EBG Signed [facility] Work Phone: 1([phone]) 132-163904-04-2024 NoteHNO ID: [id number] Author: CORI BRUNSON RT(R) Service: ? Author [...] PATIENT PRESENTS WITH AN IMPLANTABLE OR ATTACHED AQUATIC FACILITY MANAGER: No ALLERGIES: Reviewed and unchanged CONTRAST ALLERGY: NO. EXAM: MRI - CONTRAST TYPE: GROUP II PERIPHERAL IV DATA: Ambulatory: A peripheral IV was started in the Left forearm with a Angio cath: 22 gauge. RADIOLOGY DEPARTMENT: MR; Exam(s) Completed: Body: Pancreas/Biliary SIGNATURE: RT Kitty(R) PATIENT NAME: Monica Maldonado DATE: May 24, 2023 TIME: 12:58 [facility]04-04-2024 History of Present illness Narrative* Cori [...] PATIENT PRESENTS WITH AN IMPLANTABLE OR ATTACHED AQUATIC FACILITY MANAGER: No ALLERGIES: Reviewed and unchanged CONTRAST ALLERGY: NO. EXAM: MRI - CONTRAST TYPE: GROUP II PERIPHERAL IV DATA: Ambulatory: A peripheral IV was started in the Left forearm with a Angio cath: 22 gauge. RADIOLOGY DEPARTMENT: MR; Exam(s) Completed: Body: Pancreas/Biliary SIGNATURE: RT Kitty(R) PATIENT NAME: Monica Maldonado DATE: May 24, 2023 TIME: 12:58 PM documented in this encounterOhiohealth [facility]24 NoteHNO ID: [id number] Author: PHYLLIS ALMEIDA PA-C Service: ? Author Type: Physician Demand Manager Type: Progress Notes Filed: 05/11/2023 08:59 Note Text: VIRTUAL VISIT FOLLOW UP I have communicated my name and active licensure. The patient's identity and physical location were verified at the time of this visit. Either the patient or their legal outbound call center representative has been informed of the risks and [...] medication management. Pain is in RUQ, waxes/wanes, 1-04/28, no alleviating factors. On fiber, Dulcolax PRN [...] metaplasia or dysplasia. Reports Colon 02/2022 w/ [facility] w/ Dr. Hidalgo, told she had polyps and repeat in 5 yrs 02/2023 CBC, CMP WNL 02/2023 CT abd/pelv [facility] HH Hepatomegalty Diverticulosis Atherosclerosis Stable left lower lung [...] mouth once daily. dic (more 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[facility]03-22-2024 History of Present illness Narrative* Phyllis Almeida PA-C - 05/11/2023 8:30 AM EDT VIRTUAL VISIT FOLLOW UP I have communicated my name and active licensure. The patient's identity and physical location wereverified at the time of this visit. Either the patient or their legal outbound call center representative has been informed of the risks and [...] metaplasia or dysplasia. Reports Colon 02/2022 w/ [facility] w/ Friend, told she had polyps and repeat in 5 yrs 02/2023 CBC, CMP WNL 02/2023 CT abd/pelv [facility] Hepatomegalty Diverticulosis Atherosclerosis Stable left lower lung nodule (3.8 mm) OV 03/2023 Monica Maldonado is a 63 year old female with PMHx positive for COPD, GERD, NAFLD, RA who presents forEnlarged liver (Labs 02/22/23). Surg hx pos for venkata, appendectomy. On Bentyl PRN, Prilosec 40 mg daily. Admits to chronic right sided abdominal pain for the past year. Pain is in RUQ, waxes/wanes, 1-10, no alleviating factors. Associated sx of nausea [...] (MYRBETRIQ) 25 mg Tb24 Take by mouth. 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 Phyllis Almeida PA-C May 11, 2023 8:51 AM documented in this encounterOhiohealth [facility]03-19-2024 NoteHNO ID: [id number] Author: DANYA DARNELL APRN.ANIKA Service: ? Author Type: Nurse Practitioner Type: [...] further testing to confirm. Danya Darnell APRN.ANIKA [facility] Fibroscan Fibrosis Risk <7 kPA = F0-F2 [...] Int J Clin Exp Med. 2015 Nov 15;8(10):61883-98. PMID: 35262888; PMCID: VOG1259204. James Ceja, Colleen DEE, Mamie M, Alaina F, Anne J, Lula O, Danny F, Josh M, Rona G, Keisha A, Joya E, Sherron L, Rachel G, Luci A, Suly U, Maria Esther S, Glory P, Antonio V, Sadler V, Kathleen Ceja, Prashant HUYNH. Refining the Baveno elastography criteria for the definition of compensated advanced chronic liver disease. J Hepatol. 2020;74(5):9884-2297. doi: 10.1016/j.jhep.2020.11.050. Epub 2019Jan 27. PMID: 77229638.[facility]03-19-2024 History of Present illness Narrative* Danya Darnell APRN.ANIKA - 05/08/2023 9:06 AM EDT Patient fasting [...] 4fibrosis/cirrhosis, consider further testing to confirm. Danya Darnlel APRN.ANIKA [facility] Fibroscan Fibrosis Risk <7 kPA = F0-F2 [...] 3 (>/= S3: > 66% steatosis) Reference Silva Y, Ted Q, Silva T, Jen J, Silva H, Bruno T. Controlled attenuation parameter for assessment of hepatic steatosis grades: a diagnostic meta-analysis. Int J Clin Exp Med. 2015 Dec 03;8(10):64100-48.PMID: 12220887; PMCID: ACM1535837. James Ceja, Colleen DEE, Mamie M, Alaina F, Anne J, Lula O, Danny F, Josh M, Rona G, Keisha A, Joya E, Sherron L, Rachel G, Luci A, [place] U, Mayo S, Sanjiv, Jeanieo V, de Nena V, Kathleen M, Prashant HUYNH. Refining the Baveno elastography criteria for the definition of compensated advanced chronic liver disease. J Hepatol. 2020;74(5):6743-9820. doi: 10.1016/j.jhep.2020.11.050. Epub 2019Jan 27. PMID: 30241748. documented in this encounterOhiohealth [facility]03-15-2024 NoteHNO ID: [id number] Author: RENEA HICKEY RN Service: ? Author Type: Registered Nurse Type: Nursing Progress Note Filed: 05/04/2023 10:48 Note Text: Abdomen soft non-distended. Will continue to monitor.[facility] 05-04-2023 Miscellaneous Notes* Discharge Instr - Nursing - Renea Hickey RN - 05/04/2023 10:49 AM EDT The patient received a copy of EGD discharge instructions that contain information for how to contact the physician who performed the procedure and when to seek medical care. documented in this encounterOhiohealth [facility]03-15-2024 Nurse Note* Renea Hickey RN - 05/04/2023 10:42 AM EDT Abdomen soft non-distended. Will continue to monitor. documented in this encounterOhiohealth [facility]03-15-2024 History and physical note * Sangeetha Silva [...] weight loss, emesis. Reports Colon 02/2022 w/ [facility] w/ Dr. Hidalgo, told she had polyps and repeat in 5 yrs 02/2023 CBC, CMP WNL 02/2023 CT abd/pelv [facility] Hepatomegalty Diverticulosis Atherosclerosis Stable left lower lung [...] (MYRBETRIQ) 25 mg Tb24 Take by mouth. mizixiskntw-xwgxsnaxc-hbzmguci (TRELEGY ELLIPTA) 100-62.5-25 mcg inhalation powder Inhale [...] 132/76 Pulse 74 Ht 165.1 cm (5' 5") Wt 110.7 kg (244 lb) BMI 40.60 [...] past year. Pain is in RUQ, waxes/wanes, 1-10, no alleviating factors. Associated sx of nausea w/o emesis, early satiety. Has been PPI for the past 10 yrs with good relief in GERD. No recent EGD. Bms are regular, no blood. Bentyl PRN works well for intermittent loose stools. Takes ibuprofen daily for chronic arthritic pains with relief. Denies unintentional weight loss, emesis. Reports Colon 02/2022 w/ [facility] w/ Dr. Hidalgo, told she had polyps and repeat in 5 yrs 02/2023 CBC, CMP WNL 02/2023 CT abd/pelv [facility] Hepatomegalty Diverticulosis Atherosclerosis Stable left lower lung [...] (MYRBETRIQ) 25 mg Tb24 Take by mouth. iuafgmammhm-xthrlpvqq-myohdoat (TRELEGY ELLIPTA) 100-62.5-25 mcg inhalation powder Inhale [...] 132/76 Pulse 74 Ht 165.1 cm (5' 5") Wt 110.7 kg (244 lb) BMI 40.60 [...] no further questions. . documented in this encounterOhiohealth [facility]03-12-2024 NoteHNO ID: [id number] Author: MILLY PINTO RDMS Service: ? Author Type: Life Agent Type: Progress Notes Filed: 05/01/2023 11:39 Note [...] PATIENT PRESENTS WITH AN IMPLANTABLE OR ATTACHED AQUATIC FACILITY MANAGER: No RADIOLOGY DEPARTMENT: Ultrasound PERIPHERAL IV DATA: Not applicable SIGNED BY: Milly Pinto RDMS RVT May 01, 2023 11:39 [facility] History of Present illness Narrative* Milly [...] PATIENT PRESENTS WITH AN IMPLANTABLE OR ATTACHED AQUATIC FACILITY MANAGER: No RADIOLOGY DEPARTMENT: Ultrasound PERIPHERAL IV DATA: Not applicable SIGNED BY: Milly Pinto RDMS Jann May 01, 2023 11:39 AM documented in this encounterOhiohealth [facility]02-28-2024 NoteHNO ID: [id number] Author: PHYLLIS ALMEIDA PA-C Service: ? Author Type: Physician Demand Manager Type: Progress Notes Filed: 04/18/2023 10:09 Note [...] past year. Pain is in RUQ, waxes/wanes, 1-310, no alleviating factors. Associated sx of nausea w/o emesis, early satiety. Has been PPI for the past 10 yrs with good relief in GERD. No recent EGD. Bms are regular, no blood. Bentyl PRN works well for intermittent loose stools. Takes ibuprofen daily for chronic arthritic pains with relief. Denies unintentional weight loss, emesis. Reports Colon 02/2022 w/ [facility] w/ Dr. Hidalgo, told she had polyps and repeat in 5 yrs 02/2023 CBC, CMP WNL 02/2023 CT abd/pelv [facility] Hepatomegalty Diverticulosis Atherosclerosis Stable left lower lung [...] (MYRBETRIQ) 25 mg Tb24 Take by mouth. rmatjkssqio-uvrdtjizg-nagcwnmc (TRELEGY ELLIPTA) 100-62.5-25 mcg inhalation powder Inhale [...] 132/76 Pulse 74 Ht 165.1 cm (5' 5") Wt 110.7 kg (244 lb) BMI 40.60 [...] rhonchi or rales. Destiny (more 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[facility]02-28-2024 Instructions* Patient Instructions* Phyllis Almeida PA-C - [...] esophageal reflux, by following the tips above. Zalv-xwd-dowxskp liquid antacids can also help in treating [...] involves blocking acid production in the stomach. Lbam-cup-fsrwant medicines, such as Tums , Rolaids , [...] to correct the disorder. documented in this encounterOhiohealth [facility]02-28-2024 History of Present illness Narrative* Phyllis Almeida [...] weight loss, emesis. Reports Colon 02/2022 w/ [facility] w/ Friend, told she had polyps and repeat in 5 yrs 02/2023 CBC, CMP WNL 02/2023 CT abd/pelv [facility] Hepatomegalty Diverticulosis Atherosclerosis Stable left lower lung [...] (MYRBETRIQ) 25 mg Tb24 Take by mouth. uuhzbnqnaux-twsnyxwrh-dtniqpcb (TRELEGY ELLIPTA) 100-62.5-25 mcg inhalation powder Inhale [...] 132/76 Pulse 74 Ht 165.1 cm (5' 5") Wt 110.7 kg (244 lb) BMI 40.60 [...] which included preparing to see the patient, khlm-hp-ljex patient care, completing clinical documentation, obtaining and/or reviewing separately obtained history, performing a medically appropriate examination, counseling and educating the pat ient/family/caregiver, ordering medications, tests, or procedures, communicating with other HCPs (not separately reported), independently interpreting results (not separately reported), communicatingresults to the patient/family/caregiver, and care coordination (not separately reported). Phyllis Almeida PA-C April 18, 2023 10:00 AM documented in this encounterOhiohealth [facility]02-07-[address] Turk [facility] March 28, 2022 9:22pm Note Date/Time March 28, 2022 7 :13pm [facility] Medical Records Department [address] [place] [address] Emergency Department Summary 03/28/22 MR#: [id number] Acct: [id number] Name: MONICA MALDONADO Rep #:[id number] : [...] of DVT/PE. No recent surgery, recent immobilization [facility] Medical History Acute maxillary sinusitis Alcohol use [...] rhythm with a ventricularrate of 87 bpm. ME interval 152 ms, QRS duration 80 ms, [...] % (Auto) 60.1 Lymph % (Auto) 30.3 Scurry % (Auto) 7.2 Eos % (Auto) 1.1 [...] 18:35 EST Reading Location ID and State: [facility] / [place] , Service support , Discharge Plan Triage [...] your Primary Care Provider. Call [facility] ([phone]) or report to the closest Emergency Room. Call 911 if necessary. 03/28/222121 <Electronically signed by Tani Turk DO> Cosigner Signature (if applicable): CC: Dr. Leon Pinto MD ~ Signed [facility] Work Phone: 1(862) 646-396501-23-2023 History and physical note Author Drew Hidalgo [facility] March 13, 2022 8:43am Note Date/Time March 13, 2022 8 :43am [facility] Medical Records Department [address] [place] [address] History & Physical Exam 03/13/22 0840 MR#: [id number] Acct: [id number] Name: MONICA MALDONADO Rep #:[id number] : 1960 62 From: Drew Hidalgo DO PCP: Dr. Leon Pinto MD Status:REG S DC Location: [address] - General General Date of Admission: 03/13/22 Date of Service: 03/13/22 [facility] Narrative MONICA MALDONADO, is a 62 F [...] or melena. [facility] Medical History (Updated 01/05/22 @ 10:47 by [...] applicable): CC: Dr. Leon Pinto MD; Drew Hidalgo, ~ Signed [facility] Work Phone: 1(637) 375-371101-23-2023 Procedure [facility] 03-13-2022 [facility]Reason for visit Narrative* Chief Complaint COVID-19 Nicotine dependence, unspecified, uncomplicated 6 M FU COVID TEST/ SYMPTOMATIC/ [facility] COVID TEST EORDERS COUGH Reason for Visit Adult BMI 34.0-34.9 kg/sq m Smoking greater than 30 pack years TAMRA (obstructive sleep apnea) 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 classification Sinus infection [facility] Work Phone: Chilv complaint+Reason for visit Narrative* Chief Complaint COVID-19 Nicotine dependence, unspecified, uncomplicated 6 M FU COVID TEST/ SYMPTOMATIC/ [facility] COVID TEST EORDERS COUGH COVID 19 TEST Amb Documentation covid positive Reason for Visit Adult BMI 34.0-34.9 kg/sq m Smoking greater than 30 pack years TAMRA (obstructive sleep apnea) 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 classification Sinus infection COVID-19 [facility] Work Phone: Chibi complaint+Reason for visit Narrative* Chief Complaint COPD COPD COVID-19/[facility] 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 6 M FU Reason for Visit Smoking greater than 30 pack years TAMRA (obstructive sleep apnea) 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 classification [facility] Work Phone: Chisn complaint+Reason for visit Narrative* Chief Complaint 7 M FU CONGESTION, EAR PAIN COVID-19 Reason for Visit Adult BMI 34.0-34.9 kg/sq m TAMRA (obstructive sleep apnea) Smoking greater than 30 pack years 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 classification Acute bronchitis 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 classification [facility] Work Phone: Chijc complaint+Reason for visit Narrative* Chief Complaint CONGESTION, EAR PAIN COVID-19 Reason for Visit Acute bronchitis 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 classification [facility] Work Phone: Chief complaint+Reason for visit Narrative* Chief Complaint CONGESTION, EAR PAIN COVID-19 MUSCLE SPASMS OF NECK Chills (without fever) Reason for Visit Acute bronchitis 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 classification [facility] Work Phone: Chiew complaint+Reason for visit Narrative* Chief Complaint CONGESTION, EAR PAIN COVID-19 MUSCLE SPASMS OF NECK Chills (without fever) CERVICAL SPINE SCREENING Reason for Visit Acute bronchitis 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 classification Spinal stenosis in cervical region Cervical spondylosis [facility] Work Phone: Evaluation note* Diagnosis Onset Date Resolution Status Adult BMI 34.0-34.9 kg/sq m acute Smoking greater than 30 pack years acute TAMRA (obstructive sleep apnea) chronic 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 classification chronic Sinus infection acute [facility] Work Phone: Evaluation note* Diagnosis Onset Date Resolution Status Adult BMI 34.0-34.9 kg/sq m acute Smoking greater than 30 pack years acute TAMRA (obstructive sleep apnea) chronic 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 classification chronic Sinus infection acute COVID-19 acute [facility] Work Phone: Evaluation note* Diagnosis Onset Date Resolution Status COVID-19 acute [facility] Work Phone: Evaluation note* Diagnosis Onset Date Resolution Status Smoking greater than 30 pack years acute TAMRA (obstructive sleep apnea) chronic 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 classification [facility] Work Phone: Evaluation note* Diagnosis Onset Date Resolution Status Encounter for screening for malignant neoplasm of colo n acute [facility] Work Phone: Evaluation note* Diagnosis Onset Date Resolution Status Encounter for screening for malignant neoplasm of colo n acute Adult BMI 34.0-34.9 kg/sq m acute TAMRA (obstructive sleep apnea) chronic Smoking greater than 30 pack years chronic 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 classification [facility] Work Phone: Evaluation note* Diagnosis Onset Date Resolution Status Adult BMI 34.0-34.9 kg/sq m acute TAMRA (obstructive sleep apnea) chronic Smoking greater than 30 pack years chronic 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 classification chronic Acute bronchitis acute 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 classification [facility] Work Phone: evaluation note* Diagnosis Onset Date Resolution Status Acute bronchitis acute 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 classification [facility] Work Phone: evaluation note* Diagnosis Onset Date Resolution Status Acute bronchitis acute 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 classification chronic Spinal stenosis in cervical region acute Cervical spondylosis [facility] Work Phone: evaluation note* Diagnosis Onset Date Resolution Status Spinal stenosis in cervical region acute Cervical spondylosis [facility] Work Phone: evaluation noteNo assessment information available [facility] Work Phone: evaluation note* Diagnosis Chronic RUQ pain- Primary Abdominal pain, right upper quadrant Nausea Nausea alone Abnormal CT of liver Nonspecific (abnormal) findings on radiological and other examination of biliary tract documented in this encounter [facility] note* Diagnosis Abnormal CT of liver Nonspecific (abnormal) findings on radiological and other examination of biliary tract documented in this encounter [facility] note* Diagnosis Right upper quadrant abdominal pain- Primary Abdominal pain, right upper quadrant Chronic RUQ pain Abdominal pain, right upper quadrant Nausea Nausea alone documented in this encounter [facility] note* Diagnosis 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 documented in this encounter [facility] note* Diagnosis 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 documented in this encounter [facility] note* Diagnosis Onset Date Resolution Status TAMRA (obstructive sleep apnea) chronic Smoking greater than 30 pack years chronic 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 classification [facility] Work Phone: Evaluation note* Diagnosis Chronic RUQ pain- Primary Abdominal pain, right upper quadrant 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 Right upper quadrant abdominal pain Abdominal pain, right upper quadrant documented in this encounter [facility] note* Diagnosis Chronic RUQ pain Abdominal pain, right upper quadrant Right upper quadrant abdominal pain Abdominal pain, right upper quadrant documented in this encounter [facility] for referral (narrative)* Outpatient Procedure (Routine) - Authorized Specialty Diagnoses / Procedures Referred By Tay t Referred To Contact [facility] Diagnoses Chronic RUQ pain Nausea Procedures EGD DIAGNOSTIC ESOPHAGOGASTRODUODENOS COPY TRANSORAL DIAGNOSTIC Phyllis Almeida PA-C [address] [place] [address] [facility] [address] [place] [address] Referral ID Status Reason Start Date Expiration Date Visits Requested Visits Authorized [id number] Authorized Auto-Generat ed Referral 04/18/2023 04/18/2024 1 1 * Diagnostic Procedure Only (Routine) - Authorized Specialty Diagnoses / Procedures Referred By Contac t Referred To Contact [facility] Diagnoses Abnormal CT of liver Procedures US ABD RIGHT UPPER QUADRANT US ABDOMINAL REAL TIME W/IMAGE LIMITED Phyllis Almeida PA-C [address] [place] [address] [place] [id number] Referral ID Status Reason Start Date Expiration Date Visits Requested Visits Authorized [id number] Authorized Auto-Generat ed Referral 04/18/2023 05/17/2024 1 1 [facility] for referral (narrative)* Diagnostic Procedure Only (Routine) - Closed Specialty Diagnoses / Procedures Referred By Contac t Referred To Contact [facility] Diagnoses Abnormal CT of liver Procedures US ABD RIGHT UPPER QUADRANT US ABDOMINAL REAL TIME W/IMAGE LIMITED Phyllis Almeida PA-C [address] [place] [address] [place] [address] Referral ID Status Reason Start Date Expiration Date V isits Requested Visits Authorized [id number] Closed Auto-Generate d Referral 04/18/2023 05/17/2024 1 1 [facility] for referral (narrative)* Outpatient Procedure (Routine) - Closed Specialty Diagnoses / Procedures Referred By Contac t Referred To Contact [facility] Diagnoses Chronic RUQ pain Nausea Procedures EGD DIAGNOSTIC ESOPHAGOGASTRODUODENOS COPY TRANSORAL DIAGNOSTIC Phyllis Almeida PA-C [address] [place] [address] [address] Referral ID Status Reason Start Date Expiration Date V isits Requested Visits Authorized [id number] Closed Auto-Generate d Referral 04/18/2023 04/18/2024 1 1 [facility] for visit Narrative* Outpatient Procedure (Routine) - Closed Specialty Diagnoses / Procedures Referred By Tay english Referred To Contact [facility] [place] Diagnoses Chronic RUQ pain Nausea Procedures EGD DIAGNOSTIC ESOPHAGOGASTRODUODENOS COPY TRANSORAL DIAGNOSTIC Phyllis Almeida PA-C [address] [place] [address] [place] [id number] Referral ID Status Reason Start Date Expiration Date V isits Requested Visits Authorized [id number] Closed Auto-Generate d Referral 04/18/2023 04/18/2024 1 1 [facility] for visit Narrative* Diagnostic Procedure Only (Routine) - Closed Specialty Diagnoses / Procedures Referred By Tay english Referred To Contact [facility] IMAG[facility] Diagnoses Chronic RUQ pain Right upper quadrant abdominal pain Procedures MRI PANC/KATIE WO/W IVCON MRI ABDOMEN W/O & W/CONTRAST MATERIAL Phyllis Almeida PA-C [address] [place] [address] Mr Imaging [facility] Referral ID Status Reason Start Date Expiration Date V isits Requested Visits Authorized [id number] Closed Auto-Generate d Referral 05/14/2023 08/12/2023 1 1 [facility] Summary Purpose Family History No Family History [...] Will No December 21 2:18pm Power of Take Away Man No December 21, 2020 2:18pm Advance Directive Response Recorded Date/ Time Advance Directives No March 12:14pm Living Will No March 09 3:27pm Power of Take Away Man No March 09, 2022 3:27pm Advance Directive Response Recorded Date/ Time Advance Directives No March 12:14pm Living Will No March 28 6:05pm Power of Take Away Man No March 28, 2022 6:05pm Advance Directive Response Recorded Date/ Time Advance Directives No March 1:14pm Living Will No March 28 7:05pm Power of Take Away Man No March 28, 2022 7:05pm Advance Directive Response Recorded Date/ Time Advance Directives No December 9:22am Living Will No March 28 7:05pm Power of Take Away Man No March 28, 2022 7:05pm Living Will No November 20 10:09am Power of Take Away Man No November 20 10:09am Advance Directive Response Recorded Date/ Time Advance Directives No December 9:22am Living Will No March 28 7:05pm Do you have a Healthcare Power of Take Away Man? No March 28, 2022 7:05pm Advance Directive Response Recorded Date/ Time Living Will No March 28 7:05pm Do you have a Healthcare Power of Take Away Man? 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 Amb Documentation covid positive COPD COPD [...] :55pm pain- LUMBAR AND CERVIAL March 26 4:37pm CERVICAL/LUMBAR SPINE April 01 11:07am Chronic [...] (gastroesophageal reflux disease) M arch 2024 10:53am Chief Complaint Admit Date CONGESTION/EAR [...] April 01 11:07am Spondylolisthesis at L5-S1 level 2024 11:07am Lumbar stenosis with neurogenic claudica tion April 01, 2024 11:07am Epigastric pain April 28, 2024 10: 53am Fatty (change of) liver, not elsewhere c lassified April 28, 2024 10:53am RUQ pain April 28, 2024 10: 53am GERD (gastroesophageal reflux disease) [facility] 2024 10:53am Chief Complaint Admit Date CHEST XRAY January 25, 2024 4 :55pm pain- LUMBAR AND CERVIAL March 26, 2 [...] 4 :55pm pain- LUMBAR AND CERVIAL March 26, 2 [...] April 01 11:07am Spondylolisthesis at L5-S1 level 2024 11:07am Lumbar stenosis with neurogenic claudica [...] Admit Date pain- LUMBAR AND CERVIAL March 26 025 [...] pm BACK/NECK May 22, 2024 5:00 pm EONORMA HALL AND DEE DEE May 27 10:33am LIVER ISSUES May 29, 2024 12: 55pm Reason for Visit Admit Date Cervical radiculopathy April 01 11:07am Spondylolisthesis at L5-S1 level [id number] 11:07am Lumbar stenosis with neurogenic claudica tion April 01, 2024 11:07am Epigastric pain April 28, 2024 10: 53am GERD (gastroesophageal reflux disease) M [facility] 2024 10:53am RUQ pain April 28, 2024 [...] radiculopathy May 22, 2024 1:5 0pm Dyspepsia Keren 10th, 2025 12: 55pm Metabolic dysfunction-associ ated steatotic liver disease (MASLD) May 29, 2024 12:55pm RUQ pain May 29, 2024 12: 55pm Reason for Referral Specialty Diagnoses / Procedures Referred By Contac t Referred To Contact MR IMAGING Diagnoses Chronic RUQ pain Right upper quadrant abdominal pain Procedures MRI 3D POST PROCESSING 3D RENDERING W/INTERP&POSTPROC DIFF WORK STATION Phyllis Almeida PA-C [address] [place] [address] Mr Imaging [facility] Referral ID Status Reason Start Date Expiration Date Visits Requested Visits Authorized [id number] Pending Review Auto-Generat ed Referral 05/11/2023 06/09/2024 1 1 Specialty Diagnoses / Procedures Referred By Maddisonac t Referred To Contact [facility] Diagnoses Chronic RUQ pain Right upper quadrant abdominal pain Procedures MRI PANC/KATIE WO/W IVCON MRI ABDOMEN W/O & W/CONTRAST MATERIAL Phyllis Almeida PA-C [address] [place] [address] Mr Imaging [facility] Referral ID Status Reason Start Date Expiration Date Visits Requested Visits Authorized [id number] Pending Review Auto-Generat ed Referral 05/11/2023 06/09/2024 1 1 Additional Source Comments (unrecognized sect ion and content) No Status Records Found INFORMATION SOURCE (unrecogn ized section and content) DATE CREATED AUTHOR 06/21/2018 [facility] DATE CREATED AUTHOR AUTHOR'S ORGANIZ ATION 05/29/2023 [facility] DATE CREATED AUTHOR AUTHOR'S ORGANIZ ATION 01/01/2025 [facility] Goals (unrecognized section and content) Goals [...] Primary Care Provider, Referring Provider Active Dr. Drwe Hidalgo DO Attending Provider, Other Prov ider [...] Care Provider, Referring Provider Active Delisa Foster GARMENT CUTTER, GARMENT CUTTER-C Attending Provider Active Team Status: Inactive Member Role Status Dates Dr. Leon Pinto MD Primary Care Provider Active Delisa Foster GARMENT CUTTER, GARMENT CUTTER-C Attending Provider Active Team Status: Inactive Member [...] Dr. Leon Pinto MD Primary Care Provi nroberto, Attending Provider, Referring Provider Active Team Status: Inactive Member Role Status Dates Dr. Leon Pinto MD Primary Care Provider, Referring Provider Active Dr. 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 Leon Pinto MD Family Provider Active Summer Funez MD Primary Care Provider Active Team Status: Active Member Role Status Dates Delisa Foster GARMENT CUTTER, GARMENT CUTTER-C Attending Provider, Referrin g Provider Active Summer Funez MD Primary Care Provider Active Team Status: Inactive Member Role Status Dates Summer Funez MD Primary Care Provide r, Attending Provider, Referring Provider Active Team Status: Inactive Member Role Status Dates Delisa Foster GARMENT CUTTER, GARMENT CUTTER-C Attending Provider, Referrin g Provider Active Summer Funez MD Primary Care Provider Active Civil [employer] 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 Relationship Specialty Start Date End Date Summer Funez MD [address] [facility] [facility] [address] [place] [address] PCP - General Internal Medicine 04/18/23 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 Service 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 Relationship Specialty Start Date End Date Summer Funez MD [address] [facility] [address] [place] [address] PCP - General Internal Medicine 04/18/23 Civil Service Worker Relationship Specialty Start Date End Date Summer Funez MD [address] [facility] [address] [place], [place] [id number] PCP - General Internal Medicine 04/18/23 Civil Service Worker Relationship Specialty Start Date End Date Summer Funez MD [address] [facility] [address] [place], [place] [id number] PCP - General Internal Medicine 04/18/23 Civil Service Worker Relationship Specialty Start Date End Date Summer Funez MD [address] [facility] [address] [place], [place] [address] PCP - General Internal Medicine 04/18/23 Civil Service Worker Relationship Specialty Start Date End Date Summer Funez MD [address] [place] [address] [place], [place] [address] PCP - General Internal Medicine 04/18/23 Team [...] Funez MD Primary Care Provider Active Dr. Smeaj Joseph MD Attending Provider Active Civil Service Worker Relationship Specialty Start Date End Date Summer Funez MD [address] [facility] [address] [place] [address] PCP - General Internal Medicine 04/18/23 Civil Service Worker Relationship Specialty Start Date End Date Summer Funez MD [address] [facility] [address] [place], [place] [id number] PCP - General Internal Medicine 04/18/23 Civil Service Worker Relationship Specialty Start Date End Date Summer Funez MD [address] [place] [address] [place], [place] [id number] PCP - General Internal Medicine 04/18/23 Team Status: Active Member Role Status Keke Funez MD Primary Care Provider Active Team Status: Inactive Member Role Status Keke Funez MD Primary Care Provider Active St art: January 07, 2024 End: January 07, 2024 Dr. Rj Bravo MD Attending Provider Active Start: January [...] 2024 Team Status: Inactive Member Role Status Keek Funez MD Primary Care Provider Active St [...] End: April 28, 2024 Heather Hall NP-C Attending Provider Active Start: April 28, 2024 End: April 28, 2024 Team Status: Active Member Role Status Keke Funez MD Primary Care Provider Active St art: April 28, 2024 Heather Hall NP-C Attending Provider Active Start: April 28, 2024 Heather Hall NP-C Referring Provider Active Start: April 28, 2024 Team Status: Active Member Role Status Keke Funez MD Primary Care Provider Active St art: May 01, 2024 Heather Hall GARMENT CUTTER-C Attending Provider Active Start: May 01, 2024 Heather Hall NP-C Referring Provider Active Start: May 01, 2024 Team Status: Active Member Role Status Keke Fuenz MD Primary Care Provider Active St art: May 05, 2024 ILYA Antunez Attending Provider Active Star t: May 05, 2024 ILYA Antunez Referring Provider Active Star t: May 05, 2024 Team Status: Inactive Member Role Status Keke Funez MD Primary Care Provider Active St art: April 28, 2024 End: April 28, 2024 Heather Hall NP-C Attending Provider Active Start: April 28, 2024 [...] May 01, 2024 End: May 01, 2024 VALERIE Palomino Attending Provider Active Start: May 01, 2024 End: May 01, 2024 VALERIE Palomino Referring Provider Active Start: May 01, 2024 [...] End: May 19, 2024 Delisa Foster NP, NP-C Attending Provider Active Start: May 19, 2024 [...] or prosecute any alcohol or drug abuse patient.[facility] the event this information is protected by the Federal Confidentiality of Alcohol and Drug Abuse Patient Records regulations: The Federal rules restrict any use of the information to criminally investigate or prosecute any alcohol or drug abuse patient.[facility] the event this information is protected by the Federal Confidentiality of Alcohol and Drug Abuse Patient Records regulations: The Federal rules restrict any use of the information to criminally investigate or prosecute any alcohol or drug abuse patient.[facility] the event this information is protected by the Federal Confidentiality of Alcohol and Drug Abuse Patient Records regulations: The Federal rules restrict any use of the information to criminally investigate or prosecute any alcohol or drug abuse patient.[facility] the event this information is protected by the Federal Confidentiality of Alcohol and Drug Abuse Patient Records regulations: The Federal rules restrict any use of the information to criminally investigate or prosecute any alcohol or drug abuse patient.[facility] the event this information is protected by the Federal Confidentiality of Alcohol and Drug Abuse Patient Records regulations: The Federal rules restrict any use of the information to criminally investigate or prosecute any alcohol or drug abuse patient.[facility] the event this information is protected by the Federal Confidentiality of Alcohol and Drug Abuse Patient Records regulations: The Federal rules restrict any use of the information to criminally investigate or prosecute any alcohol or drug abuse patient.[facility] Hospital[facility] the event this information is protected by the Federal Confidentiality of Alcohol and Drug Abuse Patient Records regulations: The Federal rules restrict any use of the information to criminally investigate or prosecute any alcohol or drug abuse patient.[facility] Hospital[facility] the event this information is protected by the Federal Confidentiality of Alcohol and Drug Abuse Patient Records regulations: The Federal rules restrict any use of the information to criminally investigate or prosecute any alcohol or drug abuse patient.[facility] Hospital[facility] the event this information is protected by the Federal Confidentiality of Alcohol and Drug Abuse Patient Records regulations: The Federal rules restrict any use of the information to criminally investigate or prosecute any alcohol or drug abuse patient.[facility] Hospital[facility] the event this information is protected by the Federal Confidentiality of Alcohol and Drug Abuse Patient Records regulations: The Federal rules restrict any use of the information to criminally investigate or prosecute any alcohol or drug abuse patient.[facility] Reason for Visit (unrecogniz ed section and content) Reason Comments Enlarged liver Labs 02/22/23 Reason Comments Radiology US Specialty Diagnoses / Procedures Referred By Contac t Referred To Contact US IMAGING Diagnoses Abnormal CT of liver Procedures US ABD RIGHT UPPER QUADRANT US ABDOMINAL REAL TIME W/IMAGE LIMITED Phyllis Almeida PA-C [address] [place] [address] Us Imaging [facility] Referral ID Status Reason Start Date Expiration Date V isits Requested Visits Authorized [id number] Closed Auto-Generate d Referral 04/18/2023 05/17/2024 1 1 Reason Comments Fibroscan Specialty Diagnoses / Procedures Referred By Contac t Referred To Contact [facility] Diagnoses Fatty metamorphosis of liver Procedures DDI VIBRATION CONTROLLED TRANSIENT ELASTOGRAPHY (VCTE) LIVER ELASTOGRAPHY W/O IMAG W/I&R Phyllis Almeida PA-C [address] [place] [address] [facility] [address] [place] [address] Referral ID Status Reason Start Date Expiration Date V isits Requested Visits Authorized [id number] Closed Auto-Generate d Referral 05/01/2023 04/30/2024 1 1 Reason Comments Abdominal Pain Inactive Administered Medications - up to 3 most recent administrations Administered Medications (un recognized section and content) Medication Order MAR Action Action Date Dose Rate Site benzocaine 20% 1 [place] (TOPEX) 1 [place], TOPICAL, DIRECTED, Starting on Sun05/04/23 at 1030, [...] BE BASED ON THE PRIMARY CLINICAL RECORDS. [employer] [facility]. provides no warranty or guarantee of the accuracy or completeness of information in this document.
== END | disposition home or self-care (01) ==
LOC: CVS 12:48
PROVIDERS: PCP Family Medicine; Referring Provider Internal Medicine Cardiovascular Disease; Visit Provider Internal Medicine Cardiovascular Disease
DX: R93.1 Abnormal findings on diagnostic imaging of heart and coronary circulation (principal)
CPT/HCPCS: 93017; 93350; Q9957; A4216; C8928

== ENCOUNTER → 2025-01-07 | Outpatient (CLI) | payer OTHER, SELFPAY ==
--- NOTE | 2025-01-07 13:00 | CT_ITS ---
PROCEDURE: CHEST WITHOUT CONTRAST 01/07/2025 REASON FOR EXAM: LUNG NODULE AND SMOKER TECHNIQUE: Chest CT without contrast. Coronal and Sagittal reconstruction series were provided. One or more dose reduction techniques were used (e.g., Automated exposure control, adjustment of the mA and/or kV according to patient size, use of iterative reconstruction technique RADIATION DOSE SUMMARY: CTDlvol: 17.48 mGy DLP: 595.01 mGycm COMPARISON: April 25, 2024 FINDINGS: Hardware: None Lymph nodes: No significant lymph nodes are seen. Heart and Vasculature: The heart is nonenlarged. Atherosclerotic calcifications of the thoracic aorta. Thoracic aorta and pulmonary arteries have normal contours; noncontrast technique limits evaluation. Coronary Artery Calcifications: Present Lungs and Airways: Stable 8.2 cm noncalcified nodule in the superior medial aspect of the left lung apex. This is unchanged. Mild degree of emphysematous changes. Pleura: No pleural effusion. Upper Abdomen: Unremarkable Bones: Degenerative changes of the thoracic spine. CT/Chest without Contrast IMPRESSION: Coronary artery calcification (CAC) is is present Stable examination. 12 month follow-up recommended. Reading Location: [id number]
== END | disposition home or self-care (01) ==
LOC: CT 12:51
PROVIDERS: PCP Family Medicine; Referring Provider Nurse Practitioner Acute Care; Visit Provider Nurse Practitioner Acute Care
DX: R91.1 Solitary pulmonary nodule (principal)
CPT/HCPCS: 71250